=== PATIENT | female | born 1935 | race Caucasian/White ===

== ENCOUNTER → 2017-12-01 07:18 | Outpatient (CLI) | payer MEDICARE, BC, SELFPAY ==
[2017-12-01 07:55] LABS: BUN 18 mg/dL (7-18); BUN/Creat Ratio 13.1 RATIO (10-20); Calcium,Total 9.3 mg/dL (8.5-10.1); Chloride 101 mmol/L (98-107); Creatinine, Serum 1.37 mg/dL (0.55-1.02); EST Glomerular Filtration Rate 39 mL/min (>60); Est Glom Filt Rate - Afr Amer 48 mL/min (>60); Glucose 92 mg/dL (74-106); Phosphorus 3.9 mg/dL (2.5-4.9); Sodium Level 138 mmol/L (136-145)
== END ==
PROVIDERS: Family Provider Family Medicine; PCP Family Medicine; Visit Provider Internal Medicine Nephrology
DX: N18.3 Chronic kidney disease, stage 3 (moderate) (principal)
CPT/HCPCS: 36415; 80069

== ENCOUNTER → 2018-05-05 07:51 | Outpatient (CLI) | payer MEDICARE, BC, SELFPAY ==
[2018-05-05 08:58] LABS: Albumin, Serum 3.8 g/dL (3.2-5.0); BUN 22 mg/dL (7-18); BUN/Creat Ratio 15.7 RATIO (10-20); Calcium,Total 9.5 mg/dL (8.5-10.1); Chloride 100 mmol/L (98-107); EST Glomerular Filtration Rate 38 mL/min (>60); Est Glom Filt Rate - Afr Amer 46 mL/min (>60); Glucose 90 mg/dL (74-106); Phosphorus 4.2 mg/dL (2.5-4.9); Potassium 4.4 mmol/L (3.5-5.1); Sodium Level 136 mmol/L (136-145)
[2018-05-05 09:32] LABS: Protein, Urine (Random) < 6.0 mg/dL (<11.9)
[2018-05-07 11:22] LABS: ANTINUCLEAR ANTIBODIES DIRECT Positive (Negative); Anti-dsDNA Ab 10 IU/mL (0-9)
== END ==
PROVIDERS: Family Provider Family Medicine; PCP Family Medicine; Visit Provider Internal Medicine Nephrology
DX: N18.3 Chronic kidney disease, stage 3 (moderate) (principal); R76.8 Other specified abnormal immunological findings in serum
CPT/HCPCS: 36415; 80069; 82570; 84156; 86038; 86225

== ENCOUNTER → 2018-11-03 07:46 | Outpatient (CLI) | payer MEDICARE, BC, SELFPAY ==
[2018-11-03 09:07] LABS: Albumin, Serum 3.7 g/dL (3.2-5.0); BUN 21 mg/dL (7-18); BUN/Creat Ratio 18.3 RATIO (10-20); Chloride 106 mmol/L (98-107); Creatinine, Serum 1.15 mg/dL (0.55-1.02); EST Glomerular Filtration Rate 48 mL/min (>60); Est Glom Filt Rate - Afr Amer 58 mL/min (>60); Glucose 86 mg/dL (74-106); Phosphorus 3.3 mg/dL (2.5-4.9); Potassium 4.3 mmol/L (3.5-5.1); Sodium Level 139 mmol/L (136-145); Uric Acid 6.1 mg/dL (2.6-6.0)
== END ==
PROVIDERS: Family Provider Family Medicine; PCP Family Medicine; Referring Provider Internal Medicine Nephrology; Visit Provider Internal Medicine Nephrology
DX: N18.3 Chronic kidney disease, stage 3 (moderate) (principal)
CPT/HCPCS: 36415; 80069; 84550

== ENCOUNTER → 2019-06-27 12:45 | Outpatient (CLI) | payer MEDICARE, BC, SELFPAY ==
[2018-11-08 13:34] VITALS: BMI 21.7
== END ==
PROVIDERS: Family Provider Family Medicine; PCP Family Medicine; Referring Provider Family Medicine; Visit Provider Family Medicine
DX: R07.9 Chest pain, unspecified (principal)
CPT/HCPCS: 85379

== ENCOUNTER 2019-06-27 14:23 | Emergency (ER) | payer MEDICARE, BC, SELFPAY ==
[2018-11-08 13:34] VITALS: BMI 21.7
[2019-06-27 14:25] VITALS: BP 197/87; PULSE 90; RESP 19; TEMP 36.6; O2SAT 99; BMI 21.3
--- NOTE | 2019-06-27 14:28 | EKG12_ITS ---
Test Reason : CP Blood Pressure : / mmHG Vent. Rate : 084 BPM Atrial Rate : 084 BPM P-R Int : 136 ms QRS Dur : 082 ms QT Int : 386 ms P-R-T Axes : 073 042 064 degrees QTc Int : 456 ms Normal sinus rhythm Normal ECG Confirmed by TYRELL VASUQEZ, ALINA ([id number]), movie editor AILYN PRIETO ([id number]) on 06/29/2019 11:05:25 AM Referred By: LIZZETTE Confirmed By:ALINA SANTILLAN MD
[2019-06-27 14:54] LABS: Absolute Lymphocyte Count 0.97 X10^3/uL (0.83-4.51); Absolute Neutrophil Count 3.4 X10^3/uL (2.0-7.7); Basophil# 0.06 X10^3/uL; Basophil% 1.2 % (0-1); Eosinophil# 0.16 X10^3/uL; Eosinophils% 3.2 % (0-5); Hematocrit 41.4 % (37-47); Hemoglobin 13.8 g/dL (12.0-15.0); Lymphocyte # 0.97 X10^3/ul (4.0); Lymphocyte % 19.6 % (19-41); Mean Corp Hgb Conc 33.3 g/dL (32-36); Mean Corpuscular Hgb 30.6 pg (27.0-32.0); Mean Corpuscular Volume 91.8 fL (81-99); Mean Platelet Vol. 9.4 fl (6.2-12.0); Monocyte% 8.1 % (0-10); NRBC Flagged by Analyzer 0 % (0-5); Neutrophil # 3.35 X10^3/uL (2.7-7.7); Neutrophil % 67.5 % (47-70); Platelet Count 202 K/mm3 (150-450); RBC Distribution Width CV 11.5 % (11.6-14.6); RBC Distribution Width SD 39.2 fl (35.1-43.9); Red Blood Count 4.51 M/mm3 (4.2-5.4)
[2019-06-27 15:15] LABS: ALB/GLOB Ratio 1.1 RATIO (0.9-2.4); AST(SGOT) 11 U/L (15-37); Alanine Aminotransfer ALT/SGPT 18 U/L (13-56); Albumin, Serum 3.9 g/dL (3.2-5.0); Alkaline Phosphatase 67 U/L (45-117); Anion Gap 6 (5-15); BUN 19 mg/dL (7-18); BUN/Creat Ratio 14.3 RATIO (10-20); Calcium,Total 9.4 mg/dL (8.5-10.1); Chloride 105 mmol/L (98-107); Creatinine, Serum 1.33 mg/dL (0.55-1.02); EST Glomerular Filtration Rate 41 mL/min (>60); Est Glom Filt Rate - Afr Amer 49 mL/min (>60); Estimated Creatinine Clearance 25.79 ml/min; Globulin 3.4 g/dL (2.2-4.2); Glucose 112 mg/dL (74-106); Potassium 3.7 mmol/L (3.5-5.1); Protein, Total 7.3 g/dL (6.4-8.2); Sodium Level 137 mmol/L (136-145)
[2019-06-27 15:18] LABS: D-Dimer Quantitative (DVT/PE) 0.91 FEU/ug/m (0.27-0.49)
--- NOTE | 2019-06-27 15:20 | CT_ITS ---
STUDY: CTA CHEST REASON FOR EXAM: Female, 84 years old. Palpitations. Elevated d-dimer. RADIATION DOSAGE (If Supplied By Facility): CTDIvol = ( 3.87 ) mGy, DLP = ( 160.44 ) mGycm TECHNIQUE: The examination was performed with the intravenous administration of IV 75mL [id number]-300 75. Post-processing of the angiographic images was performed, with multiplanar reformation and 3D reconstruction. Individualized dose optimization techniques were used for this CT. COMPARISON: None. FINDINGS: Small benign-appearing bilateral axillary lymph nodes. Inhomogeneous appearance of the right and left lobe of the thyroid gland with decreased attenuation suggestive of a border is changed. Normal enhancement of the main pulmonary artery and right and left pulmonary arteries. Normal enhancement of the bilateral peripheral pulmonary arteries. There is no demonstrated pulmonary embolism. There is atherosclerotic calcification of the aortic arch with tortuosity. There is no demonstrated aortic dissection. Normal heart and pericardium. Normal mediastinum. Normal hilar regions. Normal visualized trachea and bronchi. The lungs are hyper expanded, with flattening of the hemidiaphragms. There is a 5.1 mm noncalcified nodule in the lateral peripheral aspect of the left upper lobe as seen on axial image #204. Normal pleura. Normal chest wall structures. There are degenerative changes of thoracic spine. Small hiatal hernia. CT/CTA Chest W/WO Contrast IMPRESSION: Hyperinflation. No evidence of pulmonary embolism. 5 mm pleural-based nodule in the left upper lobe. Electronically Signed: Francis Mike, at 15:56 EST , Service support ,
--- NOTE | 2019-06-27 15:22 | ED.VIS.GEN ---
History of Present Illness Chief Complaint: Palpitations Informant: Patient Onset: Days Timing: Intermittent Current Severity: Mild Maximum Severity: Mild Narrative: Patient presents from PCPs office with intermittent palpitations for the past couple of days. She states she will intermittently feel like her heart is fluttering. She denies chest pain or shortness of breath. She does not feel lightheaded or dizzy. She does not feel as if she is going to pass out. Blood work was sent from her primary care office and d-dimer was elevated so she was sent to the emergency room. Past Medical History - Allergies and Home Meds Allergies/Adverse Reactions: Allergies NSAIDS (Non-Steroidal Anti-Inflamma Allergy (Mild, Verified 11/08/18 13:36) Other Primary Care Physician: Anival Gamino MD [Primary Care Provider] - Prior records reviewed: Yes Past Medical History: - Smoking Status: Never smoker Review of Systems General: Denies: Chills, Fever Eyes: Denies: Visual changes - bilaterally Cardiovascular: Reports: Palpitations. Denies: Chest pain, Heart racing Respiratory: Denies: Dyspnea, Cough, Sputum Gastrointestinal: Denies: Abdominal pain, Nausea, Vomiting, Diarrhea Musculoskeletal: Denies: Neck pain, Back pain, Swelling, Extremity Pain Skin: Denies: Rash Neurological: Denies: Headache, Weakness, Parasthesia Hematologic: Denies: Easy bruising Allergy: Denies: Uticaria Physical Exam Vital Signs/Narrative: Vital Signs Temp Pulse Resp BP Pulse Ox 06/27/19 14:25 98 F 90 19 H 197/87 H 99 Inital Vital Signs reviewed: Yes General: Well nourished, Well developed Head: Normocephalic ENT: Moist mucous membranes Neck: Supple Cardiovascular: Regular rate, Regular rhythm Respiratory: No distress, CTA bilaterally Abdomen: Soft, Nontender Extremities: Nontender, No edema Skin: Normal color Neurological: Alert, Oriented x3, Normal Strength, Normal Sensation Psychological: Normal affect Diagnostic/Tx/Re-eval Impressions Chest CTA 06/27/19 15:20 IMPRESSION: Hyperinflation. No evidence of pulmonary embolism. 5 mm pleural-based nodule in the left upper lobe. Electronically Signed: Francis Mike, at 15:56 EST , Service support , 06/27/19 15:20 CTA Chest W/WO Contrast [CT] Stat Laboratory Results 06/27/19 06/27/19 06/27/19 14:45 14:45 14:45 WBC 5.0 RBC 4.51 Hgb 13.8 Hct 41.4 MCV 91.8 MCH 30.6 MCHC 33.3 RDW Std Deviation 39.2 RDW Coeff of Fatimah 11.5 L Plt Count 202 MPV 9.4 Immature Gran % (Auto) 0.400 Neut % (Auto) 67.5 Lymph % (Auto) 19.6 [place] % (Auto) 8.1 Eos % (Auto) 3.2 Baso % (Auto) 1.2 H Absolute Neuts (auto) 3.4 Absolute Lymphs (auto) 0.97 Nucleated RBC % 0 D-Dimer Quant (PE/DVT) 0.91 H* Sodium 137 Potassium 3.7 Chloride 105 Carbon Dioxide 26.0 Anion Gap 6 BUN 19 H Creatinine 1.33 H Estim Creat Clear Calc 25.79 Est GFR (MDRD) Af Amer 49 L Est GFR (MDRD) Non-Af 41 L BUN/Creatinine Ratio 14.3 Glucose 112 H Calcium 9.4 Total Bilirubin 0.20 AST 11 L ALT 18 Alkaline Phosphatase 67 Troponin I < 0.015 Total Protein 7.3 Albumin 3.9 Globulin 3.4 Albumin/Globulin Ratio 1.1 - EKG Initial EKG Interpretation: Sinus Rhythm - Sinus at 84 with no acute ischemia. - Medical Decision Making Labs were reviewed with the patient. CTA of the chest here is unremarkable. She did mention that Dr. Gamino had talked about looking a quality assurance monitor body up to her for home. I spoke with him and they are arranging that through [facility]. They should be calling her tomorrow with those instructions. I did add TSH on to the patient's labs. This is not yet resulted but patient will not be held here awaiting those results. I will check this and call her if it is abnormal. ED Disposition - Plan for ED Patient: Disposition: Home or Assisted Living Diagnosis: Palpitations Instructions: Palpitations Referrals: Anival Gamino MD [Primary Care Provider] - As soon as possible
[2019-06-27] MEDS: 0.9% Normal Saline 1,000 ML 150 ML IV (16:05)
[2019-06-27 16:34] LABS: Thyroid Stim Hormone (TSH) 2.37 uIU/mL (0.358-3.74)
[2019-06-27 16:35] VITALS: BP 157/61; PULSE 72; RESP 12; O2SAT 99
== END 2019-06-27 16:42 | disposition home or self-care (01) ==
PROVIDERS: Emergency Provider Emergency Medicine; Family Provider Family Medicine; PCP Family Medicine
DX: R00.2 Palpitations (principal); R79.89 Other specified abnormal findings of blood chemistry; R91.1 Solitary pulmonary nodule
CPT/HCPCS: 71275; 80053; 84443; 84484; 85025; 85379; 93005; 96360; 99283; J7030; Q9967; A4216

== ENCOUNTER → 2019-07-01 10:28 | Outpatient (CLI) | payer MEDICARE, BC, SELFPAY ==
[2019-06-27 14:25] VITALS: BMI 21.3
== END ==
PROVIDERS: Family Provider Family Medicine; PCP Family Medicine; Referring Provider Family Medicine; Visit Provider Family Medicine
DX: R00.2 Palpitations (principal)
CPT/HCPCS: 93225; 93226

== ENCOUNTER → 2019-08-30 08:24 | Outpatient (CLI) | payer MEDICARE, BC, SELFPAY ==
--- NOTE | 2019-08-30 08:29 | CT_ITS ---
STUDY: CT MAXILLOFACIAL SINUSES REASON FOR EXAM: Female, 84 years old. Facial pain left side greater than right, multiple antibiotics. Prior nasal surgery, right parotidectomy, hypertension. [employer] navigation protocol. RADIATION DOSAGE (If Supplied By Facility): CTDIvol = ( 33.06 ) mGy, DLP = ( 763.60 ) mGycm TECHNIQUE: The patient was scanned in a multi detector CT scanner. High resolution axial imaging was performed without the administration of intravenous contrast material. Sagittal and coronal images were reconstructed. Individualized dose optimization techniques were used for this CT. COMPARISON: None. FINDINGS: FRONTAL SINUSES: Normal aeration, without mucosal inflammatory disease. ETHMOIDAL SINUSES: Normal aeration, without mucosal inflammatory disease. MAXILLARY SINUSES: Normal aeration, without mucosal inflammatory disease. SPHENOIDAL SINUSES: Normal aeration, without mucosal inflammatory disease. There is patency of the bilateral maxillary infundibuli with normal uncinate processes, ethmoid bullae, and hiatus semilunaris. Normal bilateral middle turbinates. Normal bilateral inferior turbinates. Normal midline nasal septum. There is patency of the bilateral nasal airways. The visualized osseous structures are normal. The visualized bilateral orbital contents are normal. CT/Sinus/Facial Bone IMPRESSION: Normal CT examination of the maxillofacial sinuses. Electronically Signed: Francis Mike, at 9:31 EST , Service support ,
== END ==
PROVIDERS: Family Provider Family Medicine; PCP Family Medicine; Referring Provider Otolaryngology; Visit Provider Otolaryngology
DX: R51 Headache (principal)
CPT/HCPCS: 70486

== ENCOUNTER → 2019-09-07 08:47 | Outpatient (CLI) | payer MEDICARE, BC, SELFPAY ==
[2019-09-07 09:43] LABS: Protein:Creat Ratio 150 mg/g CRE (0-200)
[2019-09-07 10:02] LABS: Albumin, Serum 3.8 g/dL (3.2-5.0); BUN 16 mg/dL (7-18); BUN/Creat Ratio 11.8 RATIO (10-20); Calcium,Total 9.5 mg/dL (8.5-10.1); Chloride 108 mmol/L (98-107); Creatinine, Serum 1.36 mg/dL (0.55-1.02); EST Glomerular Filtration Rate 40 mL/min (>60); Est Glom Filt Rate - Afr Amer 48 mL/min (>60); Glucose 136 mg/dL (74-106); Phosphorus 2.9 mg/dL (2.5-4.9); Potassium 3.7 mmol/L (3.5-5.1); Sodium Level 140 mmol/L (136-145)
== END ==
PROVIDERS: Family Provider Family Medicine; PCP Family Medicine; Referring Provider Internal Medicine Nephrology; Visit Provider Internal Medicine Nephrology
DX: N18.3 Chronic kidney disease, stage 3 (moderate) (principal); R76.8 Other specified abnormal immunological findings in serum
CPT/HCPCS: 36415; 80069; 82570; 84156; 86038; 86225

== ENCOUNTER → 2020-03-27 09:59 | Outpatient (CLI) | payer MEDICARE, BC, SELFPAY ==
[2020-03-27 10:59] LABS: Hematocrit 45.1 % (37-47); Hemoglobin 14.5 g/dL (12.0-15.0); Mean Corp Hgb Conc 32.2 g/dL (32-36); Mean Corpuscular Hgb 30.6 pg (27.0-32.0); Mean Corpuscular Volume 95.1 fL (81-99); Mean Platelet Vol. 10.3 fl (6.2-12.0); Platelet Count 192 K/mm3 (150-450); RBC Distribution Width SD 41.7 fl (35.1-43.9); Red Blood Count 4.74 M/mm3 (4.2-5.4); White Blood Count 6.1 K/mm3 (4.4-11.0)
[2020-03-27 11:06] LABS: Protein, Urine (Random) 9.1 mg/dL (<11.9); Protein:Creat Ratio 130 mg/g CRE (0-200)
[2020-03-27 11:17] LABS: Albumin, Serum 3.9 g/dL (3.2-5.0); BUN 16 mg/dL (7-18); BUN/Creat Ratio 12.4 RATIO (10-20); Calcium,Total 9.2 mg/dL (8.5-10.1); Chloride 103 mmol/L (98-107); Creatinine, Serum 1.29 mg/dL (0.55-1.02); EST Glomerular Filtration Rate 42 mL/min (>60); Est Glom Filt Rate - Afr Amer 51 mL/min (>60); Glucose 120 mg/dL (74-106); Phosphorus 2.8 mg/dL (2.5-4.9); Sodium Level 136 mmol/L (136-145)
== END ==
PROVIDERS: PCP Family Medicine; Referring Provider Internal Medicine Nephrology; Visit Provider Internal Medicine Nephrology
DX: N18.3 Chronic kidney disease, stage 3 (moderate) (principal); R76.8 Other specified abnormal immunological findings in serum
CPT/HCPCS: 36415; 80069; 82570; 84156; 85027

== ENCOUNTER → 2020-12-05 12:15 | Outpatient (CLI) | payer MEDICARE, BC, SELFPAY ==
[2020-12-05 13:43] LABS: Protein, Urine (Random) < 6.0 mg/dL (<11.9)
[2020-12-05 13:50] LABS: Albumin, Serum 3.8 g/dL (3.2-5.0); BUN 19 mg/dL (7-18); BUN/Creat Ratio 16.2 RATIO (10-20); Calcium,Total 9.4 mg/dL (8.5-10.1); Chloride 107 mmol/L (98-107); Creatinine, Serum 1.17 mg/dL (0.55-1.02); EST Glomerular Filtration Rate 47 mL/min (>60); Est Glom Filt Rate - Afr Amer 57 mL/min (>60); Glucose 84 mg/dL (74-106); Phosphorus 3.3 mg/dL (2.5-4.9); Potassium 3.9 mmol/L (3.5-5.1); Sodium Level 138 mmol/L (136-145)
[2020-12-05 14:14] LABS: PTHIN 64.5 pg/mL (18.4-80.1)
== END ==
PROVIDERS: PCP Family Medicine; Referring Provider Internal Medicine Nephrology; Visit Provider Internal Medicine Nephrology
DX: N18.30 Chronic kidney disease, stage 3 unspecified (principal)
CPT/HCPCS: 36415; 80069; 82570; 83970; 84156

== ENCOUNTER 2021-01-27 01:22 | Emergency (ER) | payer MEDICARE, BC, SELFPAY ==
[2021-01-27 01:22] VITALS: BP 196/91; PULSE 88; RESP 16; TEMP 36.6; O2SAT 97; BMI 20.4
[2021-01-27 01:24] VITALS: BP 196/91; PULSE 88; RESP 16; TEMP 36.6; O2SAT 97
--- NOTE | 2021-01-27 01:31 | EDS_ITS ---
HPI History of Present Illness Chief Complaint: Complaint Informant: patient Onset/Context/Timing Onset: Today Context: Sudden Onset Timing: Continuous Quality: Burning, discomfort Location: Suprapubic Worsened by: Urination Relieved by: Nothing Narrative Narrative: Patient presents with possible urinary tract infection that began tonight. Patient states she has been having some burning with urination. Patient admits to some suprapubic discomfort. Patient states this only began a few hours ago. Patient denies any fevers or chills. Patient denies any nausea or vomiting. Patient denies any hematuria. Patient denies any back pain. [facility] Medical History GERD (gastroesophageal reflux disease) Hypertension Home Medications aspirin 81 mg chewable tablet 81 mg PO DAILY 11/08/18 [History Last Taken Unknown] calcium citrate 200 mg (950 mg) tablet 200 mg PO DAILY tab 11/08/18 [History Last Taken Unknown] dextran 70-hypromellose 0.1 %-0.3 % eye drops drp OPHTHALMIC ml 11/08/18 [History Last Taken Unknown] levothyroxine 50 mcg tablet 50 mcg PO DAILY 11/08/18 [History Last Taken Unknown] metronidazole 250 mg tablet 250 mg PO TID 11/08/18 [History Last Taken Unknown] omeprazole 20 mg capsule,delayed release 20 mg PO DAILY 11/08/18 [History Last Taken Unknown] ospemifene 60 mg tablet 60 mg PO DAILY #30 tab 11/08/18 [Rx Last Taken Unknown] ropinirole 0.25 mg tablet 0.25 mg PO QHS 11/08/18 [History Last Taken Unknown] simvastatin 40 mg tablet 40 mg PO QHS 11/08/18 [History Last Taken Unknown] cephalexin 500 mg PO Q6 #12 capsule 01/27/21 [Rx Last Taken Unknown] losartan 50 mg PO DAILY 01/27/21 [History Last Taken Unknown] Allergy/AdvReac Type Severity Reaction Status Date / Time NSAIDS (Non-Steroidal Allergy Mild Other Verified 11/08/18 13:36 Anti-Inflamma Sulfa (Sulfonamide Allergy Rash Verified 01/27/21 01:25 Antibiotics) Surgical History S/P DHIRAJ (total abdominal hysterectomy) Social History Smoking Status: Never smoker alcohol intake: never substance use type: does not use caffeine: Yes what type of physical activity do you participate in: walking seatbelt use: always do you feel safe at home: Yes additional social history: [employer]- Retired ROS ROS ED Constitutional Constitutional ED: Denies chills or fever(s) Eyes Eyes: Denies blurry vision or change in vision ENT ENT ED: Denies rhinorrhea or sore throat Cardiovascular Cardiovascular: Denies chest pain or palpitations Respiratory/Chest Respiratory/Chest: Denies cough or dyspnea Gastrointestinal Gastrointestinal: Denies nausea or vomiting Genitourinary Genitourinary ED: Reports dysuria; Denies hematuria Musculoskeletal Musculoskeletal: Denies back pain or neck pain Integumentary Denies abscess or rash Neurologic Neurologic: Denies headache(s) or weakness Allergic/Immunologic Allergic/Immunologic ED: Denies mouth swelling or urticaria EXAM Physical Exam Const Vital Signs: 01/27/21 01:22 01/27/21 01:24 Temperature 97.8 F 97.8 F Temperature Source Temporal Temporal Pulse Rate 88 88 Respiratory Rate 16 16 Blood Pressure 196/91 H 196/91 H Blood Pressure Mean 126 126 Pulse Ox 97 97 Oxygen Delivery Method Room Air Room Air Positive well nourished and well developed General Appearance ED: well developed HEENT Reports moist mucous membranes Neck supple and no JVD Resp normal respiratory effort and clear to auscultation bilaterally Cardio regular rate and regular rhythm GI normal to inspection, nondistended, normoactive bowel sounds and non-distended Palpation: soft and tender suprapubic; Negative for guarding or rebound tenderness present Neuro oriented x3, CN's II-XII intact bilaterally and no sensory deficits noted Sensorium / Orientation: alert Motor Exam: strength 5/5 throughout Psych mental status grossly normal MDM MDM MDM Narrative Medical decision making narrative: Urinalysis shows leukocyte esterase of 500 with 10-25 red blood cells and 25-50 white blood cells. There is 1+ bacteria. Urine culture was ordered. Patient was given her first dose of Keflex here. Patient was given a prescription for Keflex. Patient was instructed to drink plenty of fluids. Patient was instructed to follow-up with her primary care physician in 5 to 7 days for further evaluation. Patient understood and was agreeable with the plan. All questions were answered. Lab Data Attestation: I reviewed the patient's lab results. Labs: Laboratory Results - last 24 hr 01/27/21 01:35 Urine Color Red Urine Clarity Sl. Cloudy Urine pH 6.5 Ur Specific [place] 1.010 Urine Protein 100 H Urine Glucose (UA) Normal Urine Ketones Negative Urine Occult Blood 250 H Urine Nitrite Negative Urine Bilirubin Negative Urine Urobilinogen Normal Ur Leukocyte Esterase 500 H Urine RBC 10-25 SEEN Urine WBC 25-50 SEEN Ur Squamous Epith Cells 0 SEEN Urine Bacteria 1+ Urine Mucus 0 SEEN Discharge Plan Triage Chief Complaint: Complaint ED Provider: Shaka Zurita Dx/Rx/DC Orders Clinical Impression: Urinary tract infection Instructions: ED Bladder Infection, Female (Adult) Prescriptions: New cephalexin [cephalexin] 500 MG capsule 500 mg PO Q6 Qty: 12 RF: 0 No Action ropinirole 0.25 mg tablet 0.25 mg PO QHS RF: 0 calcium citrate [Calcitrate] 200 mg (950 mg) tablet 200 mg PO DAILY RF: 0 metronidazole [Flagyl] 250 mg tablet 250 mg PO TID RF: 0 levothyroxine 50 mcg tablet 50 mcg PO DAILY RF: 0 simvastatin 40 mg tablet 40 mg PO QHS RF: 0 omeprazole 20 mg capsule,delayed release(DR/EC) 20 mg PO DAILY RF: 0 aspirin 81 mg tablet,chewable 81 mg PO DAILY RF: 0 GenTeal Tears Mild 0.1-0.3 % drops OPHTHALMIC RF: 0 [place] 60 mg tablet 60 mg PO DAILY Qty: 30 RF: 12 losartan 50 mg tablet 50 mg PO DAILY RF: 0 Primary Care Provider: Anival Gamino Referrals: Anival Gamino MD [Primary Care Provider] - 3-5 Days Disposition Disposition: Home, self care
[2021-01-27 01:40] LABS: Mucous, Urine 0 SEEN /hpf (<or=2+); Squamous Epithelial Cells - UA 0 SEEN /hpf (5-10)
[2021-01-27 01:42] LABS: Color, Urine Red (Yellow); Glucose, Dipstick Normal (Normal); Ketone-Dipstick Negative (Negative); Leukocyte Esterase-Dipstick 500 /ul (Negative); Nitrite-Dipstick Negative (Negative); Occult Blood-Urine 250 /ul (Negative); Protein-Dipstick 100 mg/dl (Negative); Urine Bilirubin Dipstick Negative (Negative); Urine Clarity Sl. Cloudy (Clear); Urine Urobilinogen Normal (Normal); Urine pH 6.5 (5.0 - 8.0)
[2021-01-27 01:51] LABS: Bacteria 1+ /hpf (None Seen); Red Blood Cells-Urine 10-25 SEEN /hpf (0-5); White Blood Cells 25-50 SEEN /hpf (0-5)
[2021-01-27] MEDS: Cephalexin 500 MG Capsule PO (01:58)
[2021-01-27 02:02] VITALS: BP 170/64; PULSE 74; RESP 14; O2SAT 99
== END 2021-01-27 02:02 | disposition home or self-care (01) ==
PROVIDERS: Emergency Provider Emergency Medicine; PCP Family Medicine
DX: N39.0 Urinary tract infection, site not specified (principal); I10 Essential (primary) hypertension; K21.9 Gastro-esophageal reflux disease without esophagitis; Z79.82 Long term (current) use of aspirin; Z79.899 Other long term (current) drug therapy
CPT/HCPCS: 81001; 99283

== ENCOUNTER → 2021-08-14 09:59 | Outpatient (CLI) | payer MEDICARE, BC, SELFPAY ==
[2021-08-14 10:54] LABS: Hemoglobin 13.6 g/dL (12.0-15.0); Mean Corpuscular Hgb 31.1 pg (27.0-32.0); Mean Corpuscular Volume 91.3 fL (81-99); Mean Platelet Vol. 9.7 fl (6.2-12.0); Platelet Count 167 K/mm3 (150-450); RBC Distribution Width CV 11.9 % (11.6-14.6); Red Blood Count 4.38 M/mm3 (4.2-5.4); White Blood Count 6.2 K/mm3 (4.4-11.0)
[2021-08-14 11:26] LABS: Albumin, Serum 3.7 g/dL (3.2-5.0); BUN 21 mg/dL (7-18); BUN/Creat Ratio 18.4 RATIO (10-20); Calcium,Total 9.4 mg/dL (8.5-10.1); Chloride 101 mmol/L (98-107); Creatinine, Serum 1.14 mg/dL (0.55-1.02); EST Glomerular Filtration Rate 48 mL/min (>60); Est Glom Filt Rate - Afr Amer 58 mL/min (>60); Glucose 135 mg/dL (74-106); Phosphorus 2.8 mg/dL (2.5-4.9); Potassium 3.9 mmol/L (3.5-5.1); Sodium Level 135 mmol/L (136-145)
== END ==
PROVIDERS: PCP Family Medicine; Referring Provider Internal Medicine Nephrology; Visit Provider Internal Medicine Nephrology
DX: N18.32 Chronic kidney disease, stage 3b (principal)
CPT/HCPCS: 36415; 80069; 85027

== ENCOUNTER → 2021-12-20 | Outpatient (CLI) | payer MEDICARE, BC, SELFPAY ==
--- NOTE | 2021-12-20 06:36 | MRI_ITS ---
STUDY: MRI RIGHT FOREFOOT WITHOUT CONTRAST REASON FOR EXAM: Female, 86 years old. INTERMETATARSAL NEUROMA RIGHT FOREFOOT, CAPSULITIS Other, PAIN ACROSS DISTAL METATARSALS PLANTAR SURFACE X OVER A YEAR. NO PREVIOUS IMAGES. TECHNIQUE: Standardized fat and water weighted pulse sequences were obtained in all 3 orthogonal planes. COMPARISON: None. FINDINGS: There is degenerative mild arthrosis of the metatarsophalangeal joint of the hallux. Normal tibial and fibular sesamoids, with normal sesamoids-first metatarsal articulations. Normal interphalangeal joint of the hallux. Normal proximal and distal phalanges of the great toe. Normal medial and lateral heads of the flexor hallucis brevis tendons. Normal flexor and extensor hallucis longus tendons. Normal second through fifth metatarsophalangeal (MTP) joints. Normal interphalangeal joints of the second through fifth toes. Normal proximal, middle and distal phalanges of the second through fifth toes. 3 mm intermediate signal rounded interdigital neuroma/enlargement of the interdigital nerve is seen on image 18/36 series 3 between the heads of the fourth and fifth metatarsal bones. Normal first through third intermetatarsal spaces. Normal flexor and extensor tendons of the second through fifth toes. Normal visualized metatarsi. Normal intrinsic muscles of the forefoot. There is no demonstrated soft tissue abnormality. No marrow edema or occult fracture is seen. No visualized plantar fibroma. MRI/Lower Ext/No Jt/w/o IMPRESSION: * 3 mm intermediate signal rounded interdigital neuroma/enlargement of the interdigital nerve is seen on image 18/36 series 3 between the heads of the fourth and fifth metatarsal bones. Electronically Signed: Kris Flynn MD at 12:24 EDT Reading Location ID and State: [address] [place] [address] , Service support ,
== END | disposition home or self-care (01) ==
LOC: MRI 06:28
PROVIDERS: PCP Family Medicine; Referring Provider Podiatrist; Visit Provider Podiatrist
DX: M77.51 Other enthesopathy of right foot and ankle (principal)
CPT/HCPCS: 73718

== ENCOUNTER → 2022-04-02 | Outpatient (CLI) | payer MEDICARE, BC, SELFPAY ==
[2022-04-02 12:32] LABS: Hematocrit 41.4 % (37-47); Hemoglobin 13.1 g/dL (12.0-15.0); Mean Corp Hgb Conc 31.6 g/dL (32-36); Mean Corpuscular Volume 97.9 fL (81-99); Mean Platelet Vol. 9.9 fl (6.2-12.0); Platelet Count 185 K/mm3 (150-450); RBC Distribution Width CV 12.7 % (11.6-14.6); RBC Distribution Width SD 45.6 fl (35.1-43.9); Red Blood Count 4.23 M/mm3 (4.2-5.4); White Blood Count 4.4 K/mm3 (4.4-11.0)
[2022-04-02 12:55] LABS: Albumin, Serum 3.8 g/dL (3.2-5.0); BUN 16 mg/dL (7-18); BUN/Creat Ratio 16.5 RATIO (10-20); Calcium,Total 9.4 mg/dL (8.5-10.1); Chloride 103 mmol/L (98-107); Creatinine, Serum 0.97 mg/dL (0.55-1.02); EST Glomerular Filtration Rate 58 mL/min (>60); Est Glom Filt Rate - Afr Amer 70 mL/min (>60); Glucose 110 mg/dL (74-106); Phosphorus 3.1 mg/dL (2.5-4.9); Potassium 4.2 mmol/L (3.5-5.1); Sodium Level 137 mmol/L (136-145)
[2022-04-02 12:56] LABS: PTHIN 45.7 pg/mL (18.4-80.1)
== END | disposition home or self-care (01) ==
LOC: LAB 11:17
PROVIDERS: PCP Family Medicine; Visit Provider Internal Medicine Nephrology
DX: N18.31 Chronic kidney disease, stage 3a (principal)
CPT/HCPCS: 36415; 80069; 83970; 85027

== ENCOUNTER → 2023-02-05 | Outpatient (CLI) | payer MEDICARE, BC, SELFPAY ==
[2023-02-05 10:15] LABS: Bacteria 0 SEEN /hpf (None Seen); Mucous, Urine 0 SEEN /hpf (<or=2+); Red Blood Cells-Urine 0 SEEN /hpf (0-5); Squamous Epithelial Cells - UA 0 SEEN /hpf (5-10); White Blood Cells 0 SEEN /hpf (0-5)
[2023-02-05 11:03] LABS: Color, Urine Yellow (Yellow); Glucose, Dipstick Normal (Normal); Ketone-Dipstick Negative (Negative); Leukocyte Esterase-Dipstick Negative /ul (Negative); Nitrite-Dipstick Negative (Negative); Occult Blood-Urine 25 /ul (Negative); Protein-Dipstick Negative (Negative); Urine Bilirubin Dipstick Negative (Negative); Urine Clarity Clear (Clear); Urine Urobilinogen Normal (Normal); Urine pH 6.5 (5.0 - 8.0)
[2023-02-05 12:04] LABS: Protein, Urine (Random) < 6.0 mg/dL (<11.9)
[2023-02-05 12:08] LABS: Albumin, Serum 3.4 g/dL (3.2-5.0); BUN 21 mg/dL (7-18); BUN/Creat Ratio 19.1 RATIO (10-20); Calcium,Total 9.2 mg/dL (8.5-10.1); Chloride 104 mmol/L (98-107); EST Glomerular Filtration Rate 50 mL/min (>60); Est Glom Filt Rate - Afr Amer 61 mL/min (>60); Glucose 174 mg/dL (74-106); Phosphorus 3.6 mg/dL (2.5-4.9); Potassium 3.7 mmol/L (3.5-5.1); Sodium Level 136 mmol/L (136-145)
== END | disposition home or self-care (01) ==
LOC: LAB.FUTURE 10:08
PROVIDERS: PCP Family Medicine; Referring Provider Internal Medicine Nephrology; Visit Provider Internal Medicine Nephrology
DX: N18.31 Chronic kidney disease, stage 3a (principal)
CPT/HCPCS: 36415; 80069; 81001; 82570; 84156

== ENCOUNTER 2023-02-28 10:25 | Emergency (ER) | payer MEDICARE, BC, SELFPAY ==
[2023-02-28 10:27] VITALS: BP 198/71; PULSE 81; RESP 16; TEMP 36.4; O2SAT 100; BMI 18.4
--- NOTE | 2023-02-28 10:55 | CT_ITS ---
STUDY: CT ABDOMEN AND PELVIS WITH CONTRAST REASON FOR EXAM: Female, 87 years old. Left lower quadrant pain x3 weeks RADIATION DOSAGE (If Supplied By Facility): CTDIvol = ( 16.71 ) mGy, DLP = ( 321.77 ) mGycm TECHNIQUE: Transaxial images were obtained from the dome of the diaphragm to the symphysis pubis without oral contrast. IV 75mL [id number]-[id number] was administered. Sagittal and coronal images were reconstructed. Individualized dose optimization techniques were used for this CT. COMPARISON: None. FINDINGS: Lung bases show underlying emphysema without superimposed pulmonary process. The visualized portions of the heart are within normal limits. Normal liver. Normal gallbladder and extrahepatic biliary system. Normal spleen. Normal pancreas. Normal bilateral adrenal glands. No obstructive uropathy or suspicious solid renal lesion, there is a simple 1 cm right renal cyst and a nonobstructing right renal stone. Normal visualized stomach. Nondistended fluid-filled small bowel loops are noted consistent with ileus. This may be due to retained stool throughout the entirety of the colon. There are a few scattered colonic diverticula without CT evidence of acute diverticulitis. Appendix not visualized. Normal abdominal aorta. Normal inferior vena cava. Normal retroperitoneum. Normal urinary bladder. Normal abdominal wall. There are diffuse degenerative changes of the visualized lumbar spine, and pelvis. CT/Abdomen/Pelvis W IV Cont ONLY IMPRESSION: No suspicious solid organ abnormality, nonobstructing right nephrolithiasis, simple right renal cyst. No specific follow-up needed Small bowel ileus likely due to retained stool throughout the entirety of the colon No free intraperitoneal fluid, air, or suspicious adenopathy Diffuse atherosclerosis Electronically Signed: Edward Urias MD at 12:12 EDT ,
--- NOTE | 2023-02-28 10:56 | EDS_ITS ---
HPI HPI - GI History of Present Illness Chief Complaint: Abd Pain Informant: patient Narrative Narrative: Patient has been having abdominal pain in her left lower quadrant for the past 2 weeks or so, it is been waxing and waning, but this morning it is worse and more prominent, unlike it has been in the past week or 2. This is the first time she has been seen for it. She has never had this before. No known history of diverticulosis. Only prior abdominal surgery was appendectomy and total hysterectomy both of which were remote. No other associated symptoms with this including blood in her stool, melena, nausea, vomiting, fevers. No urinary symptoms. No pain in her back. [facility] Medical History Abnormal echocardiogram Actinic keratitis CKD (chronic kidney disease) stage 3, GFR 30-59 ml/min Dyspareunia due to medical condition in female Essential hypertension GERD (gastroesophageal reflux disease) Hiatal hernia Hypothyroidism Mixed hyperlipidemia Non-rheumatic mitral regurgitation Psoriasis Rosacea Seborrheic keratosis Urinary tract infection Home Medications aspirin 81 mg chewable tablet 81 mg PO DAILY 11/08/18 [History Last Taken Unknown] calcium citrate 200 mg (950 mg) tablet (Calcitrate) 200 mg PO DAILY 11/08/18 [History Last Taken Unknown] dextran 70-hypromellose 0.1 %-0.3 % eye drops (GenTeal Tears Mild) drp ophthalmic (eye) 11/08/18 [History Last Taken Unknown] omeprazole 20 mg capsule,delayed release 20 mg PO DAILY 11/08/18 [History Last Taken Unknown] simvastatin 40 mg tablet 40 mg PO QHS 11/08/18 [History Last Taken Unknown] losartan 50 mg tablet 50 mg PO DAILY 01/27/21 [History Last Taken Unknown] ipratropium bromide 21 mcg (0.03 %) nasal spray 2 spray intranasal BID 02/11/23 [History Last Taken Unknown] pregabalin 50 mg capsule 50 mg PO BID 02/11/23 [History Last Taken Unknown] ropinirole 0.5 mg tablet 0.5 mg PO TID 02/11/23 [History Last Taken Unknown] turmeric 400 mg capsule 400 mg PO DAILY 02/11/23 [History Last Taken Unknown] amoxicillin 500 mg capsule 2,000 mg PO ONCE PRN 02/23/23 [History Last Taken Unknown] levothyroxine 50 mcg tablet 50 mcg PO 6XW 02/23/23 [History Last Taken Unknown] polyethylene glycol 3350 17 gram/dose oral powder (Laxative PEG 3350) 17 g PO DAILY #119 grams 02/28/23 [Rx Last Taken Unknown] Allergy/AdvReac Type Severity Reaction Status Date / Time hypromellose Allergy Severe Rednesss, Verified 02/28/23 10:27 [From GenTeal (hypromellose)] watering, pain in eye NSAIDS (Non-Steroidal Allergy Mild Other Verified 02/28/23 10:27 Anti-Inflamma Sulfa (Sulfonamide Allergy Rash Verified 02/28/23 10:27 Antibiotics) fluticasone [From Flonase] AdvReac Unknown jittery Verified 02/28/23 10:27 salicylates AdvReac Unknown ringing in Verified 02/28/23 10:27 ears Family History Mother Myocardial infarction, Onset Age: 70 Surgical History History of appendectomy History of right knee joint replacement (~2021) S/P DHIRAJ (total abdominal hysterectomy) Social History Smoking Status: Never smoker alcohol intake: never substance use type: does not use caffeine: No what type of physical activity do you participate in: walking seatbelt use: always do you feel safe at home: Yes additional social history: Magdi- Retired ROS ROS ED Constitutional Constitutional ED: Denies chills or fever(s) Eyes Eyes: Denies change in vision or diplopia ENT ENT ED: Denies rhinorrhea or sore throat Cardiovascular Cardiovascular: Denies chest pain or palpitations Respiratory/Chest Respiratory/Chest: Denies cough or dyspnea Gastrointestinal Gastrointestinal: Reports abdominal pain; Denies diarrhea, nausea or vomiting Genitourinary Genitourinary ED: Denies dysuria or hematuria Musculoskeletal Musculoskeletal: Denies back pain or neck pain Integumentary Denies abscess or rash Neurologic Neurologic: Denies headache(s), paresthesias or weakness Psychiatric Psychiatric: Denies anxiety or suicidal thoughts EXAM Physical Exam Const Vital Signs: 02/28/23 10:27 Temperature 97.5 F L Temperature Source Temporal Pulse Rate 81 Respiratory Rate 16 Blood Pressure 198/71 H Blood Pressure Mean 113 Pulse Ox 100 Oxygen Delivery Method Room Air Positive well nourished and well developed General Appearance ED: well developed and NAD HEENT Reports moist mucous membranes normocephalic and atraumatic Eyes PERRL and EOMs intact bilaterally Neck full ROM and supple Resp normal respiratory effort and clear to auscultation bilaterally Cardio regular rate, regular rhythm and no murmurs GI non-distended GI Narrative: Left lower quadrant tenderness without guarding, rebound, or pulsatile mass. Normal on inspection no Rodriguez Hsieh or C[place]well signs. Auscultation: normoactive bowel sounds Palpation: soft Back/Spine no CVA tenderness General Back: other FROM Extremity normal to inspection General Extremety ED: Negative for edema, pulses abnormal or tenderness General Extremity: Negative for edema or pulses abnormal Neuro oriented x3, CN's II-XII intact bilaterally and no sensory deficits noted Sensorium / Orientation: awake and alert Motor Exam: strength 5/5 throughout Skin no rashes or lesions noted and no wounds MDM MDM MDM Narrative Medical decision making narrative: Diverticulitis in the differential diagnosis, also kidney stone, urinary issues, other intestinal issues such as bowel obstruction although less likely because she has had no nausea or vomiting. Obtain labs, urinalysis, these are all normal with a white blood count of 4.0. Obtained a CT with IV contrast, I reviewed the images and the results. I discussed all this with Dr. Ramirez. This is a fairly big was result, I agree that she appears to have a lot of stool in the bowel, I do not see any bowel distention. He looked at the images and agrees, this looks like fecalization of the small bowel and a predilection of large amount of stool in the colon, he does not see any reason for admission based on the appearance of the scan which I agree with as well. The patient looks well, she has a fairly benign abdomen, she is tender left lower quadrant, and I asked her more about her stool habits. She had a large bowel movement this morning that seemed normal to her, she does not feel like she has been constipated lately, having bowel movements has not increased or improved the pain. Certainly does not appear to have any signs of ischemic bowel and her pain is not severe at this time, and her labs are normal and I see no reason to admit her to the hospital for further testing right now. I do agree that the results of the CT do not exactly correlate with her symptoms. Dr. Ramirez is in agreement with my plan to basically put her on a colon cleansing regimen in the short-term, stool softener long-term, and close outpatient follow-up short-term. I am going to prescribe her MiraLAX as she has a right medication, I recommend doing 4 capfuls today and drinking plenty of water which she has been doing, and then 1 capful daily going forward, and reevaluating with her PCP. Of note, she does not have an ileus clinically, her bowel sounds are normal, and she does not have any distention of her abdomen. Furthermore, when patient reviews her calendar, she states she has been having this pain for 6 weeks. Lab Data Attestation: I reviewed the patient's lab results. Labs: Laboratory Results - last 24 hr 02/28/23 02/28/23 10:38 10:40 WBC 4.0 L RBC 4.53 Hgb 13.7 Hct 42.0 MCV 92.7 MCH 30.2 MCHC 32.6 RDW Std Deviation 41.0 RDW Coeff of Fatimah 11.9 Plt Count 156 MPV 10.1 Immature Gran % (Auto) 0.500 Neut % (Auto) 65.9 Lymph % (Auto) 18.8 L [place] % (Auto) 7.9 Eos % (Auto) 5.4 H Baso % (Auto) 1.5 H Absolute Neuts (auto) 2.7 Absolute Lymphs (auto) 0.76 L Nucleated RBC % 0 Sodium 133 L Potassium 3.7 Chloride 100 Carbon Dioxide 28.0 Anion Gap 5 BUN 26 H Creatinine 1.08 H Estim Creat Clear Calc 27.52 Est GFR (MDRD) Af Amer 62 Est GFR (MDRD) Non-Af 51 L BUN/Creatinine Ratio 24.1 H Glucose 102 Calcium 9.3 Urine Color Straw Urine Clarity Clear Urine pH 6.5 Ur Specific [place] 1.010 Urine Protein 15 H Urine Glucose (UA) Normal Urine Ketones Negative Urine Occult Blood 25 H Urine Nitrite Negative Urine Bilirubin Negative Urine Urobilinogen Normal Ur Leukocyte Esterase Negative Urine RBC 0 SEEN Urine WBC 0 SEEN Ur Squamous Epith Cells 0 SEEN Urine Bacteria 0 SEEN Urine Mucus 0 SEEN Radiography Diagnostic Testing: Clinical Impression(s) from Imaging Studies Abdomen/Pelvis CT 02/28/23 10:55 IMPRESSION: No suspicious solid organ abnormality, nonobstructing right nephrolithiasis, simple right renal cyst. No specific follow-up needed Small bowel ileus likely due to retained stool throughout the entirety of the colon No free intraperitoneal fluid, air, or suspicious adenopathy Diffuse atherosclerosis Electronically Signed: Edward Urias MD at 12:12 EDT Reading Location ID and State: [facility] / [place] , Service support , Discharge Plan Triage Chief Complaint: Abd Pain ED Provider: Cresencio Rollins Dx/Rx/DC Orders Clinical Impression: Abdominal pain, acute, left lower quadrant Instructions: ED Abdominal Pain Unkn Cause Fem Prescriptions: New polyethylene glycol 3350 [Laxative PEG 3350] 17 gram/dose powder 17 g PO DAILY Qty: 119 0RF Rx Instructions: 4 capfuls with 24 oz of water/beverage on first day No Action calcium citrate [Calcitrate] 200 mg (950 mg) tablet 200 mg PO DAILY simvastatin 40 mg tablet 40 mg PO QHS omeprazole 20 mg capsule,delayed release(DR/EC) 20 mg PO DAILY aspirin 81 mg tablet,chewable 81 mg PO DAILY GenTeal Tears Mild 0.1-0.3 % drops OPHTHALMIC levothyroxine 50 mcg tablet 50 mcg PO 6XW amoxicillin 500 mg capsule 2,000 mg PO ONCE PRN Rx Instructions: Prior to dental visits pregabalin 50 mg capsule 50 mg PO BID ropinirole 0.5 mg tablet 0.5 mg PO TID turmeric 400 mg capsule 400 mg PO DAILY ipratropium bromide 21 mcg (0.03 %) spray,non-aerosol 2 spray intranasal BID Rx Instructions: administer into each nostril losartan 50 mg tablet 50 mg PO DAILY Patient Comments: TAKE 1 TABLET BY MOUTH EVERY DAY Primary Care Provider: Anival Gamino Referrals: Anival Gamino MD [Primary Care Provider] - 3-5 Days if not improving Disposition Disposition: Home, Self Care
[2023-02-28 11:05] LABS: Bacteria 0 SEEN /hpf (None Seen); Mucous, Urine 0 SEEN /hpf (<or=2+); Red Blood Cells-Urine 0 SEEN /hpf (0-5); Squamous Epithelial Cells - UA 0 SEEN /hpf (5-10); White Blood Cells 0 SEEN /hpf (0-5)
[2023-02-28] MEDS: 0.9% Normal Saline 1,000 ML 125 ML IV (11:08)
[2023-02-28 11:09] LABS: Absolute Lymphocyte Count 0.76 X10^3/uL (0.83-4.51); Absolute Neutrophil Count 2.7 X10^3/uL (2.0-7.7); Basophil# 0.06 X10^3/uL; Basophil% 1.5 % (0-1); Eosinophil# 0.22 X10^3/uL; Eosinophils% 5.4 % (0-5); Hemoglobin 13.7 g/dL (12.0-15.0); Lymphocyte # 0.76 X10^3/ul (0.83-4.51); Lymphocyte % 18.8 % (19-41); Mean Corp Hgb Conc 32.6 g/dL (32-36); Mean Corpuscular Hgb 30.2 pg (27.0-32.0); Mean Corpuscular Volume 92.7 fL (81-99); Mean Platelet Vol. 10.1 fl (6.2-12.0); Monocyte# 0.32 X10^3/uL; Monocyte% 7.9 % (0-10); NRBC Flagged by Analyzer 0 % (0-5); Neutrophil # 2.66 X10^3/uL (2.7-7.7); Neutrophil % 65.9 % (47-70); Platelet Count 156 K/mm3 (150-450); RBC Distribution Width CV 11.9 % (11.6-14.6); Red Blood Count 4.53 M/mm3 (4.2-5.4)
[2023-02-28 11:11] LABS: Color, Urine Straw (Yellow); Glucose, Dipstick Normal (Normal); Ketone-Dipstick Negative (Negative); Leukocyte Esterase-Dipstick Negative /ul (Negative); Nitrite-Dipstick Negative (Negative); Occult Blood-Urine 25 /ul (Negative); Protein-Dipstick 15 mg/dl (Negative); Urine Bilirubin Dipstick Negative (Negative); Urine Clarity Clear (Clear); Urine Urobilinogen Normal (Normal); Urine pH 6.5 (5.0 - 8.0)
[2023-02-28 11:29] LABS: Anion Gap 5 (5-15); BUN 26 mg/dL (7-18); BUN/Creat Ratio 24.1 RATIO (10-20); Calcium,Total 9.3 mg/dL (8.5-10.1); Chloride 100 mmol/L (98-107); Creatinine, Serum 1.08 mg/dL (0.55-1.02); EST Glomerular Filtration Rate 51 mL/min (>60); Est Glom Filt Rate - Afr Amer 62 mL/min (>60); Estimated Creatinine Clearance 27.52 ml/min; Glucose 102 mg/dL (74-106); Potassium 3.7 mmol/L (3.5-5.1); Sodium Level 133 mmol/L (136-145)
== END 2023-02-28 13:23 | disposition home or self-care (01) ==
PROVIDERS: Emergency Provider Emergency Medicine; PCP Family Medicine; Visit Provider Emergency Medicine
DX: R10.32 Left lower quadrant pain (principal); N18.30 Chronic kidney disease, stage 3 unspecified; E78.2 Mixed hyperlipidemia; I12.9 Hypertensive chronic kidney disease with stage 1 through stage 4 chronic kidney disease, or unspecified chronic kidney disease; Z90.49 Acquired absence of other specified parts of digestive tract; Z90.710 Acquired absence of both cervix and uterus; Z79.82 Long term (current) use of aspirin; Z79.899 Other long term (current) drug therapy; K21.9 Gastro-esophageal reflux disease without esophagitis; E03.9 Hypothyroidism, unspecified; Z96.651 Presence of right artificial knee joint
CPT/HCPCS: 74177; 80048; 81001; 85025; 96360; 96361; 99283; J7030; Q9967; A4216

== ENCOUNTER 2023-06-08 15:17 | Emergency (ER) | payer MEDICARE, BC, SELFPAY ==
[2023-06-08 15:18] VITALS: BP 196/74; PULSE 81; RESP 16; TEMP 36.3; O2SAT 100; BMI 18.3
[2023-06-08 15:41] VITALS: BP 209/63; RESP 18
--- NOTE | 2023-06-08 15:46 | CT_ITS ---
EXAM: CT ABDOMEN AND PELVIS WITH INTRAVENOUS CONTRAST CLINICAL INDICATION: pain TECHNIQUE: Helically acquired images were obtained of the abdomen and pelvis with intravenous contrast. This CT exam was performed using one or more of the following dose reduction techniques: automated exposure control, adjustment of the mA and/or kV according to patient size, and/or use of iterative reconstruction technique. CONTRAST: IV 75mL Isovue-300 RADIATION DOSE: CTDIvol = 11.44 mGy, DLP = 270.32 mGy-cm COMPARISON: 02/28/2023 FINDINGS: LOWER THORAX: Unremarkable. Lung bases are clear. No cardiomegaly. No significant pericardial effusion. ABDOMEN: LIVER: Unremarkable. Homogeneous. No focal mass. GALLBLADDER AND BILE DUCTS: Unremarkable. No calcified gallstones. No gallbladder distention or wall edema. No intra- or extrahepatic biliary ductal dilation. PANCREAS: Unremarkable. No focal cystic or solid mass. SPLEEN: Unremarkable. Normal size without focal cystic or solid mass. ADRENALS: Unremarkable. No nodules. KIDNEYS AND URETERS: No acute abnormalities of the kidneys. Stable small nonobstructing stone of lower pole of the right kidney. Small bilateral renal cysts, stable. No masses. No hydronephrosis. STOMACH AND BOWEL: Evaluation of the GI tract is limited by absence of oral contrast. Cannot exclude stomach wall thickening. No dilated loops of bowel or evidence for obstruction. Cannot exclude segmental thickening of the bangura of the small or large bowel. Cannot exclude enteritis or colitis. Marked diffuse fecal retention. Diverticulosis without definite diverticulitis. Appendix is absent. PELVIS: APPENDIX: Appendix is absent. BLADDER: Unremarkable. REPRODUCTIVE: Absent uterus. ABDOMEN and PELVIS: INTRAPERITONEAL SPACE: Unremarkable. No ascites or other fluid collection. No free air. BONES/JOINTS: Mild levoconvex scoliosis of the lumbar spine. Multilevel mild degenerative disc disease. No suspicious lytic or blastic abnormality. SOFT TISSUES: Unremarkable. No discrete abdominal or pelvic wall hernia. VASCULATURE: Heavily calcified aorta with no aneurysm. LYMPH NODES: Unremarkable. No enlarged lymph nodes. CT/Abdomen/Pelvis W IV Cont ONLY IMPRESSION: No definite acute or significant abnormality seen. Electronically Signed: Miguel Aguilar MD at 17:15 EDT ,
--- NOTE | 2023-06-08 15:48 | EDS_ITS ---
HPI HPI - GI History of Present Illness Chief Complaint: Abd Pain Informant: patient Narrative Narrative: Patient presents with a lower quadrant pain. Patient has been having pain off and on since December of this year. She was seen approximately January. She had CT scan that showed some constipation. She has been on MiraLAX since. She has regular bowel movements now. Yesterday she had a bowel movement and she has had a notable increase in her pain in the left lower quadrant ever since the bowel movement. She moved her bowels again today. No blood. No diarrhea. She has no nausea and vomiting. She cannot correlate anything to worsen this pains that she is eating or drinking. She has never had fevers or chills. She did have some pain in her left flank yesterday but she states she twisted and moved and it seemed to get better. She denies urinary symptoms. She denies known history of diverticular disease or kidney stones. She is not on any blood thinners other than baby aspirin. She has had complete hysterectomy and appendectomy in the past. [facility] Medical History Abnormal echocardiogram Actinic keratitis CKD (chronic kidney disease) stage 3, GFR 30-59 ml/min Dyspareunia due to medical condition in female Essential hypertension GERD (gastroesophageal reflux disease) Hiatal hernia Hypothyroidism Mixed hyperlipidemia Non-rheumatic mitral regurgitation Psoriasis Rosacea Seborrheic keratosis Urinary tract infection Home Medications aspirin 81 mg chewable tablet 81 mg PO DAILY 11/08/18 [History Last Taken Unknown] calcium citrate 200 mg (950 mg) tablet (Calcitrate) 200 mg PO DAILY 11/08/18 [History Last Taken Unknown] dextran 70-hypromellose 0.1 %-0.3 % eye drops (GenTeal Tears Mild) drp ophthalmic (eye) 11/08/18 [History Last Taken Unknown] omeprazole 20 mg capsule,delayed release 20 mg PO DAILY 11/08/18 [History Last T aken Unknown] simvastatin 40 mg tablet 40 mg PO QHS 11/08/18 [History Last Taken Unknown] losartan 50 mg tablet 50 mg PO DAILY 01/27/21 [History Last Taken Unknown] ipratropium bromide 21 mcg (0.03 %) nasal spray 2 spray intranasal BID 02/11/23 [History Last Taken Unknown] pregabalin 50 mg capsule 50 mg PO BID 02/11/23 [History Last Taken Unknown] ropinirole 0.5 mg tablet 0.5 mg PO TID 02/11/23 [History Last Taken Unknown] turmeric 400 mg capsule 400 mg PO DAILY 02/11/23 [History Last Taken Unknown] amoxicillin 500 mg capsule 2,000 mg PO ONCE PRN 02/23/23 [History Last Taken Unknown] levothyroxine 50 mcg tablet 50 mcg PO 6XW 02/23/23 [History Last Taken Unknown] polyethylene glycol 3350 17 gram/dose oral powder (Laxative PEG 3350) 17 g PO DAILY #119 grams 02/28/23 [Rx Last Taken Unknown] dicyclomine 10 mg capsule 10 mg PO TID PRN abdominal pain #20 caps 06/08/23 [Rx Last Taken Unknown] Allergy/AdvReac Type Severity Reaction Status Date / Time hypromellose Allergy Severe Rednesss, Verified 02/28/23 10:27 [From GenTeal (hypromellose)] watering, pain in eye NSAIDS (Non-Steroidal Allergy Mild Other Verified 02/28/23 10:27 Anti-Inflamma Sulfa (Sulfonamide Allergy Rash Verified 02/28/23 10:27 Antibiotics) fluticasone [From Flonase] AdvReac Unknown jittery Verified 02/28/23 10:27 salicylates AdvReac Unknown ringing in Verified 02/28/23 10:27 ears Family History Mother Myocardial infarction, Onset Age: 70 Surgical History History of appendectomy History of right knee joint replacement (~2021) S/P DHIRAJ (total abdominal hysterectomy) Social History Smoking Status: Never smoker alcohol intake: never substance use type: does not use caffeine: No what type of physical activity do you participate in: walking seatbelt use: always do you feel safe at home: Yes additional social history: Magdi- Retired ROS ROS ED ROS Narrative A complete review of systems was performed and is negative except as documented in the history of present illness. Some specific details below. Constitutional: No recent fevers or chills. EYE: No visual complaints or pain. ENT: No difficulty swallowing. No swelling. No pain. History of GERD but no current symptoms. CV: No chest pain or palpitations. Respiratory: No dyspnea. No hemoptysis. No difficulty taking breaths. GI: Please see history of present illness. : No frequency dysuria or hematuria. No history of stones. Musculoskeletal: No recent trauma. See history of present illness. Skin: No rash. Nondiaphoretic. Neuro: No weakness or numbness. Endocrine: No polyuria or polydipsia. EXAM Physical Exam Narrative Exam Narrative: CONSTITUTIONAL: Patient is nontoxic in appearance. The patient looks comfortable. HEENT: No notable trauma. Mucous membranes moist. No sinus tenderness. No indication of pain with swallowing. EYES: No conjunctival injection. No icterus. CARDIOVASCULAR: Regular rate. Regular rhythm. No notable murmur. No JVD. RESPIRATORY: No respiratory distress. Breathing is unlabored. No wheezes. No rhonchi. No rales. No pain with a deep breath. GASTROINTESTINAL: Not distended. Bowel sounds are normal. She does have very mild tenderness to left lower quadrant. But no rebound or guarding. No mass. She states she feels like the area is full but I do not actually feel a mass. GENITOURINARY: No tenderness over the bladder. No CVA tenderness at this time. MUSCULOSKELETAL: Atraumatic. No peripheral edema. No cord. No tenderness along the deep venous system. No asymmetry. NEUROLOGICAL: Patient is alert and appropriate. No focal deficit noted. SKIN: No noted rashes. No diaphoresis. PSYCHIATRIC: Patient is calm. Mood is appropriate. Const Vital Signs: 06/08/23 15:18 06/08/23 15:41 06/08/23 17:06 Temperature 97.4 F L Temperature Source Temporal Pulse Rate 81 Respiratory Rate 16 18 18 Blood Pressure 196/74 H 209/63 H 171/78 H Blood Pressure Mean 114 111 109 Pulse Ox 100 Oxygen Delivery Method Room Air Room Air Room Air MDM MDM MDM Narrative Medical decision making narrative: Patient CBC shows minimally low white count which is nonspecific. Hemoglobin is normal. Platelets are just meant low at 132,000. Patient's electrolytes show no marked abnormalities. Creatinine is actually well-preserved. Urine is clean. My independent interpretation of her CT shows some slight increased stool and fluid but no straw patient. No diverticulitis. Final reading is no definite acute uterus skin abnormality seen. Patient needs follow-up. We will try a low-dose of Bentyl to see if this will help her when she has symptoms. She is still eating and drinking well. No urinary symptoms. She has not had a colonoscopy in about 6 years which is not that long ago for her age. I will refer her to Dr. Cuevas. She asked if I could call the office and leave her information which I will do. I did call and leave a message with the patient's name date of and phone number. Lab Data Attestation: I reviewed the patient's lab results. Labs: Laboratory Results - last 24 hr 06/08/23 06/08/23 15:56 16:05 WBC 3.0 L RBC 4.47 Hgb 13.3 Hct 40.5 MCV 90.6 MCH 29.8 MCHC 32.8 RDW Std Deviation 41.0 RDW Coeff of Fatimah 12.4 Plt Count 132 L MPV 10.2 Immature Gran % (Auto) 0.000 Neut % (Auto) 65.6 Lymph % (Auto) 20.9 [place] % (Auto) 6.1 Eos % (Auto) 6.4 H Baso % (Auto) 1.0 Absolute Neuts (auto) 2.0 Absolute Lymphs (auto) 0.62 L Nucleated RBC % 0 Sodium 137 Potassium 4.2 Chloride 104 Carbon Dioxide 28.0 Anion Gap 5 BUN 25 H Creatinine 1.02 Estim Creat Clear Calc 28.49 Est GFR (MDRD) Af Amer 66 Est GFR (MDRD) Non-Af 55 L BUN/Creatinine Ratio 24.5 H Glucose 109 H Calcium 9.6 Urine Color Yellow Urine Clarity Clear Urine pH 6.0 Ur Specific [place] 1.010 Urine Protein Negative Urine Glucose (UA) Normal Urine Ketones Negative Urine Occult Blood 25 H Urine Nitrite Negative Urine Bilirubin Negative Urine Urobilinogen Normal Ur Leukocyte Esterase Negative Urine RBC 0 SEEN Urine WBC 0 SEEN Ur Squamous Epith Cells 0 SEEN Urine Bacteria 0 SEEN Urine Mucus 0 SEEN Radiography Diagnostic Testing: Clinical Impression(s) from Imaging Studies Abdomen/Pelvis CT 06/08/23 15:46 IMPRESSION: No definite acute or significant abnormality seen. Electronically Signed: Miguel Aguilar MD at 17:15 EDT , Discharge Plan Triage Chief Complaint: Abd Pain ED Provider: Riccardo Diggs Dx/Rx/DC Orders Clinical Impression: Abdominal pain Instructions: ED Abdominal Pain Unkn Cause Fem Prescriptions: New dicyclomine 10 mg capsule 10 mg PO TID PRN (Reason: abdominal pain) Qty: 20 0RF No Action calcium citrate [Calcitrate] 200 mg (950 mg) tablet 200 mg PO DAILY simvastatin 40 mg tablet 40 mg PO QHS omeprazole 20 mg capsule,delayed release(DR/EC) 20 mg PO DAILY aspirin 81 mg tablet,chewable 81 mg PO DAILY GenTeal Tears Mild 0.1-0.3 % drops OPHTHALMIC levothyroxine 50 mcg tablet 50 mcg PO 6XW amoxicillin 500 mg capsule 2,000 mg PO ONCE PRN Rx Instructions: Prior to dental visits pregabalin 50 mg capsule 50 mg PO BID ropinirole 0.5 mg tablet 0.5 mg PO TID turmeric 400 mg capsule 400 mg PO DAILY ipratropium bromide 21 mcg (0.03 %) spray,non-aerosol 2 spray intranasal BID Rx Instructions: administer into each nostril losartan 50 mg tablet 50 mg PO DAILY Patient Comments: TAKE 1 TABLET BY MOUTH EVERY DAY polyethylene glycol 3350 [Laxative PEG 3350] 17 gram/dose powder 17 g PO DAILY Qty: 119 0RF Rx Instructions: 4 capfuls with 24 oz of water/beverage on first day Primary Care Provider: Anival Gamino Referrals: Friend,DO Gurvinder [Med Staff - Active Staff] - As soon as possible Anival Gamino MD [Primary Care Provider] - Disposition Disposition: Home, Self Care
[2023-06-08 16:01] LABS: Absolute Lymphocyte Count 0.62 X10^3/uL (0.83-4.51); Basophil# 0.03 X10^3/uL; Eosinophil# 0.19 X10^3/uL; Eosinophils% 6.4 % (0-5); Hematocrit 40.5 % (37-47); Hemoglobin 13.3 g/dL (12.0-15.0); Lymphocyte # 0.62 X10^3/ul (0.83-4.51); Lymphocyte % 20.9 % (19-41); Mean Corp Hgb Conc 32.8 g/dL (32-36); Mean Corpuscular Hgb 29.8 pg (27.0-32.0); Mean Corpuscular Volume 90.6 fL (81-99); Mean Platelet Vol. 10.2 fl (6.2-12.0); Monocyte# 0.18 X10^3/uL; Monocyte% 6.1 % (0-10); NRBC Flagged by Analyzer 0 % (0-5); Neutrophil # 1.95 X10^3/uL (2.7-7.7); Neutrophil % 65.6 % (47-70); Platelet Count 132 K/mm3 (150-450); RBC Distribution Width CV 12.4 % (11.6-14.6); Red Blood Count 4.47 M/mm3 (4.2-5.4)
[2023-06-08] MEDS: 0.9% Normal Saline (1000mL) 500 ML 1000 ML IV (16:06)
[2023-06-08 16:11] LABS: Bacteria 0 SEEN /hpf (None Seen); Mucous, Urine 0 SEEN /hpf (<or=2+); Red Blood Cells-Urine 0 SEEN /hpf (0-5); Squamous Epithelial Cells - UA 0 SEEN /hpf (5-10); White Blood Cells 0 SEEN /hpf (0-5)
[2023-06-08 16:19] LABS: Anion Gap 5 (5-15); BUN 25 mg/dL (7-18); BUN/Creat Ratio 24.5 RATIO (10-20); Calcium,Total 9.6 mg/dL (8.5-10.1); Chloride 104 mmol/L (98-107); Creatinine, Serum 1.02 mg/dL (0.55-1.02); EST Glomerular Filtration Rate 55 mL/min (>60); Est Glom Filt Rate - Afr Amer 66 mL/min (>60); Estimated Creatinine Clearance 28.49 ml/min; Glucose 109 mg/dL (74-106); Potassium 4.2 mmol/L (3.5-5.1); Sodium Level 137 mmol/L (136-145)
[2023-06-08 16:21] LABS: Color, Urine Yellow (Yellow); Glucose, Dipstick Normal (Normal); Ketone-Dipstick Negative (Negative); Leukocyte Esterase-Dipstick Negative /ul (Negative); Nitrite-Dipstick Negative (Negative); Occult Blood-Urine 25 /ul (Negative); Protein-Dipstick Negative (Negative); Urine Bilirubin Dipstick Negative (Negative); Urine Clarity Clear (Clear); Urine Urobilinogen Normal (Normal)
[2023-06-08 17:06] VITALS: BP 171/78; RESP 18
--- NOTE | 2023-06-08 17:07 | ED.RN ---
THIS RN ATTEMPTED TO CALL PT PER HER REQUEST. PHONE WENT TO [facility]ICEMAIL AT [phone].
[2023-06-08 18:45] VITALS: BP 157/48
== END 2023-06-08 18:46 | disposition home or self-care (01) ==
PROVIDERS: Emergency Provider Emergency Medicine; PCP Family Medicine; Visit Provider Emergency Medicine
DX: R10.32 Left lower quadrant pain (principal); N18.30 Chronic kidney disease, stage 3 unspecified; I12.9 Hypertensive chronic kidney disease with stage 1 through stage 4 chronic kidney disease, or unspecified chronic kidney disease; E78.2 Mixed hyperlipidemia; K21.9 Gastro-esophageal reflux disease without esophagitis; Z79.899 Other long term (current) drug therapy; Z79.82 Long term (current) use of aspirin; E03.9 Hypothyroidism, unspecified; Z90.49 Acquired absence of other specified parts of digestive tract; Z96.651 Presence of right artificial knee joint; Z90.710 Acquired absence of both cervix and uterus
CPT/HCPCS: 74177; 80048; 81001; 85025; 96360; 99283; J7030; Q9967; A4216

== ENCOUNTER → 2024-02-04 | Outpatient (CLI) | payer MEDICARE, BC, SELFPAY ==
[2024-02-04 10:50] LABS: Protein, Urine (Random) < 6.0 mg/dL (<11.9); Protein:Creat Ratio 182 mg/g CRE (0-200)
[2024-02-04 10:55] LABS: Albumin, Serum 3.5 g/dL (3.2-5.0); BUN 25 mg/dL (7-18); BUN/Creat Ratio 21.2 RATIO (10-20); Calcium,Total 9.5 mg/dL (8.5-10.1); Chloride 104 mmol/L (98-107); Creatinine, Serum 1.18 mg/dL (0.55-1.02); EST Glomerular Filtration Rate 46 mL/min (>60); Est Glom Filt Rate - Afr Amer 56 mL/min (>60); Glucose 116 mg/dL (74-106); Phosphorus 3.6 mg/dL (2.5-4.9); Potassium 4.1 mmol/L (3.5-5.1); Sodium Level 137 mmol/L (136-145)
== END | disposition home or self-care (01) ==
LOC: LAB 09:25
PROVIDERS: PCP Family Medicine; Referring Provider Internal Medicine Nephrology; Visit Provider Internal Medicine Nephrology
DX: N18.31 Chronic kidney disease, stage 3a (principal); R76.8 Other specified abnormal immunological findings in serum
CPT/HCPCS: 36415; 80069; 82570; 84156

== ENCOUNTER → 2024-03-25 | Outpatient (CLI) | payer MEDICARE, BC, SELFPAY ==
--- NOTE | 2024-03-25 09:49 | ECHOD_ITS ---
Reason For Study: MURMUR Procedure This was a 2D Doppler, Color Flow transthoracic echocardiogram. Exam performed in department. Left Ventricle Normal LV size. Moderate concentric left ventricular hypertrophy. Left ventricular systolic function is normal. The left ventricular ejection fraction is 70 %. Stage 1 diastolic dysfunction. No regional wall motion abnormalities noted. Right Ventricle Normal RV size. Normal systolic function. Atria Normal left atrium. Normal right atrium. Mitral Valve There is moderate mitral annular calcification. Mild (1+) mitral valve insufficiency. Tricuspid Valve Normal tricuspid valve. Mild (1+) tricuspid valve insufficiency. Pulmonary artery systolic pressure is 30 mmHg. Aortic Valve Trisinus/trileaflet aortic valve. Mild focal aortic valve calcification. Mean aortic valve gradient 5 mmHg. Mild (1+) aortic valve insufficiency. Pulmonic Valve Normal pulmonic valve. Great Vessels Calcified aortic root. The pulmonary artery is normal size. Inferior vena cava collapse with respiration. Pericardium/Pleural No pericardial effusion. MMode/2D Measurements & Calculations RVDd: 2.7 cm LVOT diam: 1.5 cm LAV(MOD-bp): 45.6 ml LVOT area: 1.8 cm2 LAV(MOD-bp) Indexed: 31.2 ml/m2 LAV(MOD-sp2): 47.8 ml LAV(MOD-sp4): 39.3 ml SV(MOD-sp4): 39.0 ml SV(sp4-el): 40.5 ml LVAd ap4: 21.2 cm2 LVLd ap4: 7.0 cm EDV(MOD-sp4): 52.8 ml EDV(sp4-el): 54.2 ml LVAs ap4: 9.3 cm2 LVLs ap4: 5.3 cm ESV(MOD-sp4): 13.8 ml ESV(sp4-el): 13.7 ml EF(MOD-sp4): 73.8 % EF(sp4-el): 74.7 % LA A4 area: 15.1 cm2 RA A4 area: 11.5 cm2 TAPSE: 1.7 cm Time Measurements MV dec time: 0.23 sec Doppler Measurements & Calculations MV E max wagner: 101.2 cm/sec Lat Peak E' Wagner: 7.3 cm/sec Med Peak E' Wagner: 4.4 cm/sec MV A max wagner: 112.9 cm/sec E/E' lat: 13.8 E/E' med: 22.9 MV E/A: 0.90 MV V2 max: 130.1 cm/sec MV dec slope: 446.6 cm/sec2 Ao V2 max: 164.9 cm/sec MV max P.8 mmHg Ao max P.9 mmHg MV V2 mean: 63.3 cm/sec Ao V2 mean: 108.4 cm/sec MV mean P.0 mmHg Ao mean P.5 mmHg MV V2 VTI: 52.0 cm Ao V2 VTI: 40.5 cm MVA(VTI): 1.0 cm2 AV (velocity ratio): 0.74 FELECIA(I,D): 1.3 cm2 FELECIA(V,D): 1.3 cm2 AI max wagner: 392.8 cm/sec LV V1 max: 122.4 cm/sec SV(LVOT): 53.4 ml AI max P.7 mmHg LV V1 max P.0 mmHg LV V1 mean P.3 mmHg AI dec slope: 224.2 cm/sec2 LV V1 mean: 83.8 cm/sec AI P1/2t: 513.2 msec LV V1 VTI: 30.0 cm PA V2 max: 94.1 cm/sec TR max wagner: 249.8 cm/sec PA max PG (full): 1.7 mmHg TR max P.0 mmHg ECHO/Echo Complete Interpretation Summary Normal LV size. Moderate concentric left ventricular hypertrophy. The left ventricular ejection fraction is 70 %. Left ventricular systolic function is normal. Mild focal aortic valve calcification. Mild (1+) aortic valve insufficiency. Stage 1 diastolic dysfunction. Ordering Physician: Eneida Arroyo Referring Physician: Eneida Arroyo Performed By: Mary Bowen and Student
== END | disposition home or self-care (01) ==
LOC: CVS 09:44
PROVIDERS: PCP Family Medicine; Referring Provider Physician Assistant Medical; Visit Provider Physician Assistant Medical
DX: I34.0 Nonrheumatic mitral (valve) insufficiency (principal)
CPT/HCPCS: 93306

== ENCOUNTER 2024-04-15 10:00 | Outpatient (RCR) | payer MEDICARE, BC, SELFPAY ==
--- NOTE | 2024-03-16 16:14 | HP.OTEVAL_ITS ---
Patient's Visit Information Visit Information Visit Information: DILLON ALBERTS is a 88 year old F, referred to Occupational Therapy by DANIELLE KARIMI, with a diagnosis of dislocation of proximal interphalangeal joint of right middle finger. Date of Evaluation: 03/16/24 Occupational Therapist: Eneida Reynaga, OTR/L, CHT Subjective Subjective: This 88 year old female arrives with dx of dislocation of proximal interphalangeal joint of right middle finger- dorsal dislocation. Pt fell in october before dislocation, had pain and went to see doctor 12/31/23 and next visit was 02/04/24. States does not know how dislocation occurred but felt pain. Surgery 02/12/24- s/p 4 weeks 5 days. Pt has limited R MF ROM and tingling sensation in R MF tip. Right hand dominant. Pt lives with - single story house with basement. Has difficulty opening jar/items, using silverware and eating, tying shoes, brushing teeth (uses other hand), washing/wringing rag out, reading, washing back- bathing. States having no pain right now - when bending may get to a 3/4. Pain R MF: Current Pain Intensity: 0 Pain Intensity Range: 4 ROM PIP: R MF -30/56 L 0/98 DIP: R MF -13/34 L0/66 ROM Comments: noted slight right MF PIP extension lag noted at this time ( therapist adj orthosis to decrease lag) Strength Strength Comments: weight restriction- not tested at this time Sensation Sensation Comments: states tingling sensation of R MF tip Quick DASH-Disab of Arm,Shoulder& Hand Quick DASH Score: 47.7250 Goals Goal:: strength will be tested at later date when weight restriction is released pt will demo 30# or greater emergency medicine physician assistant strength to increase I in daily functional activities by d/c. Goal:: pt will increase RUE ROM equal to or greater than LUE to increase I in daily functional activities by d/c. Goal:: pt will report I in manipulating fork/spoon/knife when eating and return to PLOF by d/c. pt will report I with ADLs and IADLs without compensation by end of POC. 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 pt is recommended to complete OT 2x a week for 3 weeks to address above impairments. Therapy session was directly supervised and doc. approved by Eneida Reynaga OTR/Beatriz,CHT. Rehabilitation Potential: Good Anticipated Interventions Anticipated Interventions: A/AAROM/PROM, Strengthening, Scar Care, Triggerpoint Release, Desensitization, Modalities, Orthoses, Joint Protection/Energy Conservation, Ergonomic Education, Education re assistive Equipment, Education re Diagnosis and Home Program Visit Plan Frequency: 2x /Week Duration: 3 Weeks General Plan: improve ROM increase strength ed ADL and assistive devices encourage full MCP and DIP joint motion unrestricted. custom splint at all times when not working on ROM and at night for total of 12 weeks. strict NWB. at 4 weeks from surgery, may begin active flexion at PIP joint. strengthening to begin at 8 weeks. TEXT: Thank you for the opportunity to evaluate your patient. For Medicare and Medicare HMO plans, please review the plan of care and approve it. It will need to be FAXED BACK to us at [phone] for Medicare purposes. Please let me know if there are questions or concerns regarding this plan of care. Physician Signature: Date:
== END 2024-04-15 19:00 | disposition home or self-care (01) ==
LOC: OT 10:00
PROVIDERS: PCP Family Medicine
DX: S63.282D Dislocation of proximal interphalangeal joint of right middle finger, subsequent encounter (principal); Z96.698 Presence of other orthopedic joint implants
CPT/HCPCS: 97110; 97140; 97165; 97530

== ENCOUNTER → 2024-06-29 | Outpatient (CLI) | payer MEDICARE, BC, SELFPAY ==
[2024-06-29 09:03] LABS: Bacteria 0 SEEN /hpf (None Seen); Mucous, Urine 0 SEEN /hpf (<or=2+); Squamous Epithelial Cells - UA 0 SEEN /hpf (5-10)
[2024-06-29 09:47] LABS: Color, Urine Yellow (Yellow); Glucose, Dipstick Normal (Normal); Ketone-Dipstick Negative (Negative); Leukocyte Esterase-Dipstick 100 /ul (Negative); Nitrite-Dipstick Negative (Negative); Occult Blood-Urine 25 /ul (Negative); Protein-Dipstick Negative (Negative); Specific Gravity, Urine 1.005 (1.002-1.030); Urine Bilirubin Dipstick Negative (Negative); Urine Clarity Sl. Cloudy (Clear); Urine Urobilinogen Normal (Normal); Urine pH 6.5 (5.0 - 8.0)
[2024-06-29 09:48] LABS: Hematocrit 41.3 % (37-47); Hemoglobin 13.6 g/dL (12.0-15.0); Mean Corp Hgb Conc 32.9 g/dL (32-36); Mean Corpuscular Hgb 30.3 pg (27.0-32.0); Mean Platelet Vol. 10.5 fl (6.2-12.0); Platelet Count 172 K/mm3 (150-450); RBC Distribution Width CV 12.3 % (11.6-14.6); RBC Distribution Width SD 41.4 fl (35.1-43.9); Red Blood Count 4.49 M/mm3 (4.2-5.4); White Blood Count 4.8 K/mm3 (4.4-11.0)
[2024-06-29 09:54] LABS: Red Blood Cells-Urine 0-5 SEEN /hpf (0-5); White Blood Cells 0-5 SEEN /hpf (0-5)
[2024-06-29 10:04] LABS: Protein, Urine (Random) < 6.0 mg/dL (<11.9)
[2024-06-29 10:34] LABS: Albumin, Serum 3.7 g/dL (3.2-5.0); BUN 14 mg/dL (7-18); BUN/Creat Ratio 13.3 RATIO (10-20); Calcium,Total 9.4 mg/dL (8.5-10.1); Chloride 104 mmol/L (98-107); Creatinine, Serum 1.05 mg/dL (0.55-1.02); EST Glomerular Filtration Rate 53 mL/min (>60); Est Glom Filt Rate - Afr Amer 64 mL/min (>60); Glucose 103 mg/dL (74-106); Phosphorus 2.9 mg/dL (2.5-4.9); Potassium 3.8 mmol/L (3.5-5.1); Sodium Level 137 mmol/L (136-145)
[2024-06-30 11:10] LABS: ANTINUCLEAR ANTIBODIES DIRECT Negative (Negative); Anti-dsDNA Ab 2 IU/mL (0-9)
[2024-06-30 13:08] LABS: Complement C3 140 mg/dL (82-167); Cytoplasmic Ab (C-ANCA) <1:20 titer (Neg:<1:20); Perinuclear Ab (P-ANCA) <1:20 titer (Neg:<1:20)
== END | disposition home or self-care (01) ==
PROVIDERS: PCP Family Medicine; Referring Provider Internal Medicine Nephrology; Visit Provider Internal Medicine Nephrology
DX: R76.8 Other specified abnormal immunological findings in serum (principal); N18.31 Chronic kidney disease, stage 3a; D64.9 Anemia, unspecified
CPT/HCPCS: 36415; 80069; 81001; 82570; 84156; 85027; 86037; 86038; 86160; 86225

== ENCOUNTER → 2024-07-06 | Outpatient (CLI) | payer MEDICARE, BC, SELFPAY | END | disposition home or self-care (01) | LOC: LAB 10:01 | PROVIDERS: PCP Family Medicine; Referring Provider Internal Medicine Nephrology; Visit Provider Internal Medicine Nephrology | DX: N39.0 Urinary tract infection, site not specified (principal) | CPT/HCPCS: 87086 ==

== ENCOUNTER → 2025-02-28 | Outpatient (CLI) | payer MEDICARE, BC, SELFPAY ==
[2025-02-28 12:40] LABS: Hematocrit 41.7 % (37-47); Hemoglobin 13.6 g/dL (12.0-15.0); Mean Corp Hgb Conc 32.6 g/dL (32-36); Mean Corpuscular Volume 92.7 fL (81-99); Mean Platelet Vol. 10.4 fl (6.2-12.0); Platelet Count 184 K/mm3 (150-450); RBC Distribution Width CV 12.3 % (11.6-14.6); RBC Distribution Width SD 42.1 fl (35.1-43.9); Red Blood Count 4.50 M/mm3 (4.2-5.4); White Blood Count 4.8 K/mm3 (4.4-11.0)
[2025-02-28 13:19] LABS: AST(SGOT) 27 U/L (<=31); Alanine Aminotransfer ALT/SGPT 17 U/L (<=34); Albumin, Serum 4.4 g/dL (3.4-4.8); Alkaline Phosphatase 82 U/L (35-104); Anion Gap 11 (5-15); BUN 25 mg/dL (4-19); BUN/Creat Ratio 23.6 RATIO (10-20); Calcium,Total 10.1 mg/dL (7.6-11.0); Carbon Dioxide 25.9 mmol/L (21.0-32.0); Chloride 103 mmol/L (98-108); Cholesterol 184 mg/dL (<=200); Globulin 2.5 g/dL (2.2-4.2); Glucose 96 mg/dL (70-99); Low Density Lipoprotein Calc. 84 mg/dL; Potassium 4.3 mmol/L (3.3-5.1); Triglycerides 95 mg/dL; Very Low Density Lipoprotein 19 mg/dL (5-40); cholesterol:hdl ratio screen 2.27
== END | disposition home or self-care (01) ==
LOC: LAB 11:54
PROVIDERS: PCP Family Medicine; Referring Provider Physician Assistant Medical; Visit Provider Physician Assistant Medical
DX: I10 Essential (primary) hypertension (principal); R07.9 Chest pain, unspecified; E78.2 Mixed hyperlipidemia
CPT/HCPCS: 36415; 80053; 80061; 85027

== ENCOUNTER → 2025-03-24 | Outpatient (CLI) | payer MEDICARE, BC, SELFPAY ==
--- OUTSIDE RECORDS SUMMARY | 2025-03-24 06:46 | XMS RPT_ITS | CCD ---
Author Organization [facility] Care Team Providers Care Portuguese Tutor Name Role Phone Jeffy Fields MD Primary Care Provider [phone] JEFFY FIELDS MD Primary Care Physician Jeffy Fields MD Primary Care Provider Jeffy Fields MD Primary Care Provider Jeffy Fields MD Primary Care Provider Dr. Jeffy Fields Primary Care Provider Eneida Rodriguez Attending Provider Unavailable Dr. Jeffy Fields Referring Provider Dr. Pacheco Farrar Attending Provider Jeffy Fields MD Primary Care Provider Jeffy Fields MD Primary Care Provider Jeffy Fields MD Primary Care Provider Haagen ADMINISTRATIVE ACCOUNTANT.CIVIL ENGINEERING PROJECT DESIGNER, Gloria Unavailable Suppan ADMINISTRATIVE ACCOUNTANT.CIVIL ENGINEERING PROJECT DESIGNER, Jennifer A Unavailable [phone] Suppan ADMINISTRATIVE ACCOUNTANT.CIVIL ENGINEERING PROJECT DESIGNER, Jennifer A Unavailable Suppan ADMINISTRATIVE ACCOUNTANT.CIVIL ENGINEERING PROJECT DESIGNER, Jennifer A Unavailable Jeffy Fields MD Primary Care Provider [phone] BACKER, SPIRITISM Attending Unavailable BACKER, SPIRITISM Referring Unavailable JEFFY FIELDS Primary Care Unavailable BACKER, SPIRITISM Referring Unavailable JEFFY FIELDS Primary Care Unavailable ZENON HUSTON Attending Unavailable DIAMOND, JEFFY Primary Care Unavailable ZENON HUSTON Attending Unavailable DIAMOND, JEFFY Primary Care Unavailable ZENON HUSTON Attending Unavailable DIAMOND, JEFFY Primary Care Unavailable KATRIN CARABALLO Attending Unavailable DIAMOND, JEFFY Primary Care Unavailable ROBEL, ZENON Referring Unavailable DIAMOND, JEFFY Primary Care Unavailable KATRIN CARABALLO Referring Unavailable DIAMOND, JEFFY Primary Care Unavailable JOSE MARTIN JEAN Referring Unavailable DIAMOND, JEFFY Primary Care Unavailable MCGREALKATRIN Referring Unavailable DIAMOND, JEFFY Primary Care Unavailable DIAMOND, JEFFY Primary Care Unavailable ROBEL, ZENON Attending Unavailable DIAMOND, JEFFY Primary Care Unavailable ROBEL, ZENON Referring Unavailable DIAMOND, JEFFY Primary Care Unavailable ROBEL, ZENON Admitting Unavailable ROBEL, ZENON Attending Unavailable DIAMOND, JEFFY Primary Care Unavailable ROBEL, ZENON Attending Unavailable DIAMOND, JEFFY Primary Care Unavailable Diamond , Dr. Florian Primary Care Provider [phone] Dr. Jeffy Fields MD Referring Provider Eneida Blackman Attending Provider [phone] Eneida Blackman Referring Provider Pacheco Farrar Attending Unavailable Starbrick, Jeffy Primary Care Unavailable Diamond, Jeffy Referring Unavailable Starbrick, Jeffy Primary Care Unavailable Eneida Arroyo Attending Unavailabl e Diamond, Jeffy Primary Care Unavailable Jen Harper Attending Unavailable Jen Harper Referring Unavailable Starbrick, Jeffy Primary Care Unavailable Jen Harper Attending Unavailable Diamodn, Jeffy Primary Care Unavailable Eneida Arroyo Attending Unavailabl Eneida Ureña Referring Unavailabl e Diamond, Jeffy Primary Care Unavailable Eneida Arroyo Attending UnavailEneida Mares Referring Unavailabl e Jen Harper Referring Unavailable Diamond, Jeffy Primary Care Unavailable Jen Harper Attending Unavailable Eneida Arroyo Attending Unavailabl Eneida Ureña Referring Unavailabl e Starbrick, Jeffy Primary Care Unavailable ROBEL, ZENON Consulting Unavailable ANGEL LUIS BARBOZA Attending Unavailable ANGEL LUIS BARBOZA Referring Unavailable Diamond, Jeffy Primary Care Unavailable MIMI ELIZONDO Attending Unavailable DIAMOND, JEFFY J Primary Care Unavailable FRANCOIS ROSARIO Referring Unavailable DIAMOND, JEFFY J Primary Care Unavailable DIAMOND, JEFFY J Primary Care Unavailable JEFFY CLARK JR Attending Unavailable DIAMOND, JEFFY J Primary Care Unavailable DIAMOND, JEFFY J Primary Care Unavailable DIAMOND, JEFFY J Referring Unavailable DIAMOND, JEFFY J Primary Care Unavailable JENNIFER BROUSSARD Attending Unavailable JEFFY FIELDS Primary Care Unavailable JEFFY CLARK JR Attending Unavailable JEFFY FIELDS Primary Care Unavailable JEFFY FIELDS Referring Unavailable JEFFY FIELDS Primary Care Unavailable JEFFY FIELDS Referring Unavailable JEFFY FIELDS Primary Care Unavailable JEFFY FIELDS Attending Unavailable JEFFY FIELDS Primary Care Unavailable Allergies Allergy Classification Reported Allergen(s) Allergy Type Date of Onset Reaction(s) Facility Corticosteroids (1 source) fluticasone Drug Allergy 9 Other: See Comments [facility] Work Phone: Mineral Oil / Petrolatum (1 source) Mineral Oil / Petrolatum Drug Allergy 4 Itching [facility] Work Phone: Sulfonamides (antibiotic) (3 sources) Sulfonamides (Antibiotic) Drug Allergy 6 Hives, Rash [facility] Unclassified (20 sources) Eye Lubricant Propensity to adverse reactions 4 [facility] (20 sources) DULoxetine Drug Allergy 1 Other: See Comments [facility] (20 sources) Etodolac Drug Allergy 6 [facility] (20 sources) fluticasone; Translations: [FLUTICASONE] Drug Allergy 9 Other: See Comments [facility] Work Phone: (8 sources) Salicylic Acid; Translations: [SALICYLATES] Drug Allergy 6 [facility] (20 sources) Sulfonamides (Antibiotic); Translations: [sulfa drugs] Propensity to adverse reactions 6 Hives, Rash [facility] (20 sources) genteal eye ointment [Other] Propensity to adverse reactions 2 Itching [facility] (8 sources) NSAIDS (Non-Steroidal Anti-Inflamma; Translations: [NSAIDS (Non-Steroidal Anti-Inflamma] Allergy to substance 9 Other [facility] (20 sources) Mineral Oil / Petrolatum; Translations: [ocular lubricant] Drug Allergy 4 Itching [facility] (20 sources) Salicylate product Propensity to adverse reactions 6 [facility] (5 sources) Sulfonamides (Antibiotic) Allergy to substance 1 Rash [facility] (5 sources) hypromellose; Translations: [hypromellose] Drug Allergy 3 Rednesss, watering, pain in eye [facility] Comment on above: Can use drops, just not the gel (4 sources) Salicylic Acid Drug Allergy 3 ringing in ears [facility] (9 sources) Etodolac Propensity to adverse reactions 4 [facility] (8 sources) Mirtazapine Drug Allergy 5 Other [facility] (1 source) fluticasone Drug Allergy 5 [facility] (1 source) Salicylic Acid Drug Allergy 5 [facility] (1 source) Sulfonamides (Antibiotic) Drug allergy (disorder) 5 [facility] (1 source) 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; Translations: [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] Propensity to adverse reactions to drug (disorder) 4 [facility] Medications Current Medications Medication Drug Class(es) Dates Sig (Normalized) Sig (Original) acetaminophen 325 mg / HYDROcodone bitartrate 5 mg oral tablet (4 sources) Opioid Agonist Start: 02-12-2024 End: 02-19-2024 take 1 tablet by mouth every six hours as needed for pain HYDROcodone-acetamin ophen ([place]) 5-325 MG tablet Indications: Dislocation of interphalangeal joint of right middle finger, subsequent encounter Take 1 tablet by mouth every 6 hours as needed for severe pain (7-10) for up to 7 days. 28 tablet 02/12/2024 02/19/2024 Active amoxicillin 500 mg oral capsule (4 sources) Penicillin-class Antibacterial Start: 02-23-2023 take 4 capsules by mouth once as needed Amoxicillin 500 mg capsule Active 2000 mg PO ONCE as needed February 23, 2023 12:00am Prior to dental visits Start: 02-23-2023 take 2000 mg by mouth once [place] xicillin Active 2000 MG PO ONCE February 23, 2023 12:00am Prior to dental visits aspirin 81 mg oral tablet (20 sources) Platelet Aggregation Inhibitor, Nonsteroidal Anti-inflammatory Drug Start: 02-26-2022 take 1 tablet by mouth twice daily at mealtime aspirin Dose : 81 mg = 1 tab(s), Oral, BIDM, Take 81 mg aspirin twice daily with food for 4 weeks postoperatively for DVT prophylaxis, 0 Refill(s) Start Date: 02/26/22 Status: Ordered Start: 02-10-2022 aspirin 81 mg oral delayed release tablet Dose : 81 mg = 1 tab(s), Oral, Daily, 0 Refill(s) Start Date: 02/10/22 Status: Ordered Start: 11-08-2018 take 1 tablet by carolyn th once daily Aspirin 81 mg tablet,chewable Active 81 mg PO DAILY November 08, 2018 12:00am Start: 11-20-2005 ASPIRIN 81 MG TAB Take one (1) tablet daily . 0 11/20/2005 Active Comment on above: Take one (1) tablet daily . Calcium Carbonate / vitamin D3 (20 sources) take 1 tablet by mouth once daily calcium carbonate/vitamin D3 (CALCIUM WITH VITAMIN D ORAL) Take 1 tablet by mouth once daily. Active take 1 tablet by mouth once juanita y calcium carbonate/vitamin D3 (CALCIUM WITH VITAMIN D ORAL) Take 1 tablet by mouth once daily. 0 Active Comment on above: Take 1 tablet by carolyn th once daily. calcium citrate 950 mg oral tablet (7 sources) Start: 11-08-2018 take 1 tablet by mouth once daily Calcium Citrate (Calcitrate) 200 mg (950 mg) tablet Active 200 mg PO DAILY November 08, 2018 12:00am calcium citrate 250 mg / cholecalciferol 100 unt oral tablet (20 sources) Vitamin D Calcium Citrate-Vitamin D 250-2.5 MG-MCG tablet Take by mouth daily. Active calcium-vitamin D 250 mg-12.5 mcg (500 intl units) oral tablet, chewable (3 sources) Start: 02-10-2022 take 1 tablet by mouth once daily in the morning calcium-vitamin D 250 mg-12.5 mcg (500 intl units) oral tablet, chewable Dose = 1 tab(s), Chewed, qAM, # 70 tab(s), 0 Refill(s) Start Date: 02/10/22 Status: Ordered Start: 02-10-2022 take 1 tablet by mouth once ca lcium-vitamin D 250 mg-12.5 mcg (500 intl units) oral tablet, chewable Dose = 2 tab(s), Chewed, BIDM, # 70 tab(s), 0 Refill(s) Start Date: 02/10/22 Status: Ordered cephalexin 500 mg oral capsule (12 sources) Cephalosporin Antibacterial Start: 06-28-2024 End: 07-05-2024 take 1 capsule by mouth twice daily cephALEXin (KEFLEX) 500 mg capsule Indications: Acute cystitis with hematuria Take 1 capsule by mouth two times a day for 7 days. 14 capsule 06/28/2024 07/05/2024 Active Start: 03-27-2022 End: 04-03-2022 take 1 capsule by mouth twice daily cephALEXin (KEFLEX) 500 mg capsule Take 1 capsule by mouth twice daily for 7 days. 14 capsule 0 03/27/2022 04/03/2022 Active Start: 01-27-2021 End: 02-11-2023 take 1 capsule by mouth every six hours Cephalexin 500 MG capsule Discontinued 500 mg PO EVERY 6 HOURS 12 0 January 27, 2021 12:00am February 11, 2023 10:55am Comment on above: Take 1 capsule by mo [facility] twice daily for 7 days. Chondroitin Sulfates / Glucosamine (3 sources) Start: 02-10-2022 Chondroitin-Glucosam ine 400 mg-500 mg oral capsule 0 Refill(s) Start Date: 02/10/22 Status: Ordered docusate sodium 50 mg / sennosides, long-term 8.6 mg oral tablet (1 source) Start: 02-26-2022 End: 02-28-2022 take 1 tablet by mouth twice daily Senokot S 50 mg-8.6 mg oral tablet Dose = 2 tab(s), Oral, BID, Take until first bowel movement, then as needed, # 20 tab(s), 0 Refill(s), Pharmacy: [id number], 156, cm, 02/25/22 11:21:00 EDT, Height Start Date: 02/26/22 Stop Date: 02/28/22 Status: Ordered doxycycline monohydrate 100 mg oral tablet (1 source) Tetracycline-clas s Drug Start: 01-17-2024 End: 01-22-2024 take 1 tablet by mouth twice daily doxycycline monohydrate 100 mg tablet Indications: URI, acute Take 1 tablet by mouth two times a day for 5 days. 10 tablet 0 01/17/2024 01/22/2024 Active GenTeal Tears Moderate (1 source) Start: 02-25-2022 GenTeal Tears Moderate Dose = 1 drop(s), Eye, right, BID, PRN as needed for dry eyes, 0 Refill(s) Start Date: 02/25/22 Status: Ordered GenTeal Tears Severe (1 source) Start: 02-25-2022 GenTeal Tears Severe Dose = 1 drop(s), Eye, left, BID, PRN Dry eyes, 0 Refill(s) Start Date: 02/25/22 Status: Ordered hypromellose 3 mg/ml ophthalmic solution (20 sources) Start: 02-10-2022 take 1 dose into the eye(s) twice daily as needed GenTeal ophthalmic solution Dose = 1 drop(s), Ophthalmic, BID, PRN for dry eyes, # 30 mL, 0 Refill(s) Start Date: 02/10/22 Status: Ordered Start: 11-09-2008 hypromellose(G ENTEAL MODERATE 0.3 % EYE DROPS) To left eye 0 0 11/09/2008 Active Comment on above: To left eye Ipratropium Spencer 42 mcg (0.06 %) spray,non-aerosol (2 sources) Start: 02-28-2025 Ipratropium Spencer 42 mcg (0.06 %) spray,non-aerosol Active 2 NMA INTRANASAL TWICE A DAY February 28, 2025 12:00am levothyroxine sodium 0.05 mg oral tablet (20 sources) l-Thyroxine Start: 02-23-2023 take 1 tablet by mouth six times weekly Levothyroxine 50 mcg tablet Active 50 ug PO 6 times per week February 23, 2023 2:44pm Start: 02-10-2022 levothyroxine 50 mcg (0.05 mg) oral tablet Dose : 50 mcg = 1 tab(s), Oral, Sun/Thu/Thu//Thu/Sat, 0 Refill(s) Start Date: 02/10/22 Status: Ordered Start: 11-08-2018 End: 04-19-2024 take 1 tablet by mouth once daily, then take 6 tablets by mouth every week levothyroxine (SYNTHROID) 50 mcg tablet Indications: Hypothyroidism, unspecified type Take 1 tablet by mouth once daily 6 out of 7 days per week. 90 tablet 3 04/19/2024 Active Comment on above: Take 1 tablet by carolyn th once daily 6 out of 7 days per week. losartan potassium 50 mg oral tablet (20 sources) Angiotensin 2 Receptor Colette Start: 1 End: 5 losartan (Cozaar) 50 MG tablet Take by mouth every morning. 07/24/2023 Active Comment on above: Take 1 tablet by carolyn once daily. omeprazole 20 mg delayed release oral capsule (20 sources) Proton Pump Inhibitor Start: 9 End: 4 take 1 tablet by mouth once daily omeprazole (PRILOSEC) 20 mg capsule Indications: Hiccups , GERD with esophagitis Take one tablet by mouth q day 90 capsule 3 04/19/2024 Active Comment on above: Take one tablet by m outh q day perflutren lipid microspheres 1.3 mL in NaCl (PF) 0.9% 10 mL injection (DEFINITY) (20 sources) Start: 3 End: 4 perflutren lipid microspheres 1.3 mL in NaCl (PF) 0.9% 10 mL injection (DEFINITY) polyethylene glycol 3350 [id number] mg powder for oral solution (20 sources) Osmotic Laxative Start: 3 Polyethylene Glycol 3350 (Laxative Peg 3350) 17 gram/dose powder Active 17 g PO DAILY 119 0 February 28, 2023 12:00am 4 capfuls with 24 oz of water/beverage on first day polyethylene gly col 3350 (MIRALAX) 17 gram/dose powder Take 17 g by mouth once daily. Dissolve dose in 4 - 8 ounces of liquid and take as directed. Active Comment on above: Take by mouth as nee ded for constipation. Dissolve dose in 4 - 8 ounces of liquid and take as directed. Take 17 g by mouth o nce daily. Dissolve dose in 4 - 8 ounces of liquid and take as directed. pregabalin 50 mg oral capsule (20 sources) Start: 09-14-2023 End: 06-13-2025 pregabalin (LYRICA) 50 mg capsule Indications: RLS (restless legs syndrome) 1 capsule at noon, bedtime, and midnight 270 capsule 1 03/13/2025 06/13/2025 Active Start: 02-20-2023 End: 08-19-2023 take 1 capsule by mouth three times daily pregabalin (LYRICA) 50 mg capsule Indications: RLS (restless legs syndrome) Take 1 capsule by mouth three times daily for 180 days. (As directed) 270 capsule 1 02/20/2023 08/19/2023 Active Start: 01-12-2023 End: 02-28-2025 take 1 capsule by mouth twice daily Pregabalin 50 mg capsule Discontinued 50 mg PO TWICE A DAY February 11, 2023 12:00am February 28, 2025 11:26am Start: 06-30-2022 End: 12-22-2022 take 1 capsule by mouth twice daily pregabalin (LYRICA) 50 mg capsule Indications: RLS (restless legs syndrome) Take 1 capsule by mouth twice daily for 90 days. 180 capsule 0 09/23/2022 10/31/2022 Discontinued Start: 04-17-2022 End: 07-16-2022 take 1 capsule by mouth twice daily pregabalin (LYRICA) 25 mg capsule Indications: RLS (restless legs syndrome) Take 1 capsule by mouth twice daily for 90 days. 60 capsule 2 04/17/2022 06/30/2022 Discontinued Start: 11-01-2021 End: 04-11-2022 pregabalin (LYRICA) 25 mg ca psule Indications: Restless legs syndrome , Dream enactment behavior , Tremor Take 1 capsule at noon and 1 capsule at midnight. 60 capsule 2 11/01/2021 04/11/2022 Discontinued Comment on above: Take 1 capsule at no on and 1 capsule at midnight. Take 1 capsule by mo ut twice daily for 90 days. Take 1 capsule by mo ut three times daily for 180 days. (As directed) Take 1 capsule by mo ut three times a day for 180 days. (As directed) rOPINIRole 0.5 mg oral tablet (20 sources) Nonergot Dopamine Agonist Start: 02-20-2023 End: 11-22-2024 rOPINIRole (Requip) 0.5 MG tablet Take by mouth 4 times daily. 02/20/2023 Active Start: 11-01-2021 End: 02-28-2025 take 1 tablet by mouth three times daily Ropinirole 0.5 mg tablet Discontinued 0.5 mg PO THREE TIMES A DAY February 11, 2023 12:00am February 28, 2025 11:26am Start: 11-01-2021 End: 06-30-2022 rOPINIRole (REQUIP) 0.5 mg t ablet Indications: Restless legs syndrome TAKE 1 TAB AT LUNCH, 1 AT DINNER, 1 AT BEDTIME, 1/2 AT MIDNIGHT NEEDED 360 tablet 1 11/01/2021 06/30/2022 Discontinued Start: 01-18-2021 End: 08-08-2021 rOPINIRole (REQUIP) 0.5 mg t ablet Indications: Restless legs syndrome TAKE 1 TAB AT LUNCH, 1 AT DINNER, 1 AT BEDTIME, 1 AT MIDNIGHT NEEDED 360 tablet 1 01/18/2021 08/08/2021 Discontinued Start: 11-08-2018 End: 02-11-2023 take 1 tablet by mouth at bedtime Ropinirole 0.25 mg tablet Discontinued 0.25 mg PO AT BEDTIME November 08, 2018 12:00am February 11, 2023 10:52am Comment on above: TAKE 1 TAB AT LUNCH, 1 AT DINNER, 1 AT BEDTIME, 1/2 AT MIDNIGHT NEEDED one tablet at noon a nd 4PM, 1 1/2 tablets at 8PM and 1/2 tablet at midnight. one tablet at noon a nd 4PM, 1 tablets at 8PM and 1 tablet at midnight. simvastatin 40 mg oral tablet (20 sources) HMG-CoA Reductase Inhibitor Start: End: 4 simvastatin (Zocor) 40 MG tablet Take by mouth Nightly. 07/24/2023 Active Comment on above: Take 1 tablet by carolyn th daily at bedtime. Turmeric extract (20 sources) Start: 3 take 1 capsule by mouth once daily Turmeric 400 mg capsule Active 400 mg PO DAILY February 11, 2023 12:00am Start: 02-11-2023 take 400 mg by mouth once juanita y Turmeric Active 400 MG PO DAILY February 11, 2023 12:00am Start: 02-10-2022 turmeric 1000 mg oral capsule Dose : 1,000 mg = 1 cap(s), Oral, BID, 0 Refill(s) Start Date: 02/10/22 Status: Ordered take 2 capsules by m outh once daily TURMERIC ORAL Take 2 capsules by mouth once daily. Active take 1 capsule by mouth once eric ly TURMERIC ORAL Take 1 capsule by mouth once daily. Active take 2 capsules by m outh once daily Turmeric (QC TUMERIC COMPLEX PO) Take 2 capsules by mouth daily. Active take 1 capsule by mouth once eric ly TURMERIC ORAL Take 1 capsule by mouth once daily. 0 Active End: 04-11-2022 turmeric (CURCUMIN MISC) turmeric (CURCUM IN MISC) Comment on above: Take 1 capsule by mo uth once daily. Vitamin D3 (3 sources) Start: 02-10-2022 Vitamin D3 Dos e : 100 mcg = 1 tab(s), Oral, Daily, # 90 tab(s), 0 Refill(s) Start Date: 02/10/22 Status: Ordered Completed/Discontinued Medications Medication Drug Class(es) Dates Sig (Normalized) Sig (Original) acetaminophen 500 mg oral tablet (20 sources) Start: 01-06-2025 End: 01-06-2025 1,000 mg, Oral, Once, On Thu01/06/25 at 0745, For 1 dose, Preprocedure, Administer 60 minutes prior to surgery. Start: 02-12-2024 End: 02-12-2024 1,000 mg, Oral, Once, On Thu02/12/24 at 1230, For 1 dose, Preprocedure, Administer 60 minutes prior to surgery. Start: 02-26-2022 take 1 tablet by carolyn once daily Tylenol Dose : 1,000 mg = 2 tab(s), Oral, TID, not to exceed 3000 mg/day, 0 Refill(s) Start Date: 02/26/22 Status: Ordered Start: 02-10-2022 Tylenol Extra Strength 500 mg oral tablet Dose : 500 mg = 1 tab(s), Oral, q4h, PRN as needed for fever, # 60 tab(s), 0 Refill(s) Start Date: 02/10/22 Status: Ordered calcium chloride 0.0014 meq/ml / potassium chloride 0.004 meq/ml / sodium chloride 0.103 meq/ml / sodium lactate 0.028 meq/ml injectable solution (4 sources) Start: 01-06-2025 End: 01-06-2025 take 50 mL intravenously every hour 50 mL/hr, IntraVENous, Continuous, Starting on Thu01/06/25 at 0745, Preprocedure, Upon admission to day - please start iv if patient does not have iv access. Use 500ml NS for patients on dialysis. Start: 02-12-2024 End: 02-12-2024 take 50 mL intravenously every hour 50 mL/hr, IntraVENous, Continuous, Starting on Thu02/12/24 at 1230, Preprocedure, Upon admission to - please start iv if patient does not have iv access. Use 500ml NS for patients on dialysis. cholecalciferol 0.025 mg oral capsule (20 sources) Vitamin D End: 07-23-2022 take 1 capsule by mouth once daily Cholecalciferol, Vitamin D3, 25 mcg (1,000 unit) cap Take 1,000 Units by mouth once daily. 07/23/2022 Discontinued Cholecalciferol, Vitamin D3, (VITAMIN D) 25 mcg (1,000 unit) cap Take 1,000 Units by mouth once daily. 0 Active Comment on above: Take 1,000 Units by mouth once daily. clonazePAM 0.5 mg oral tablet (20 sources) Benzodiazepine Start: 07-20-2023 End: 12-14-2023 clonazePAM (KLONOPIN) 0.5 mg tablet Indications: Dream enactment behavior , Restless legs syndrome , Tremor Take 1/4 tablet nightly 30 tablet 1 07/20/2023 12/14/2023 Discontinued Start: 02-11-2023 End: 02-23-2023 take 0.25 mg by mouth twice daily Clonazepam 0.5 mg tablet Discontinued 0.25 mg PO TWICE A DAY February 11, 2023 12:00am February 23, 2023 2:46pm Start: 02-11-2023 End: 02-23-2023 take 0.25 mg by mouth twice daily Clonazepam Discontinued 0.25 MG PO TWICE A DAY February 11, 2023 12:00am February 23, 2023 2:46pm Start: 11-01-2021 End: 02-20-2023 clonazePAM (KLONOPIN) 0.5 mg tablet Indications: Dream enactment behavior , Restless legs syndrome , Tremor Take 1/2 tab QHS and 1/2 tablet at midnight. 30 tablet 2 10/31/2022 02/20/2023 Discontinued Start: 01-18-2021 End: 05-27-2021 clonazePAM (KLONOPIN) 0.5 mg tablet Indications: Restless legs syndrome Take 1/2 to 1 tablet at midnight. 30 tablet 2 01/18/2021 05/27/2021 Discontinued Comment on above: TAKE 1/2 TO 1 TABLET AT MIDNIGHT Take 1/2 tab QHS. Take 1/2 tab QHS and 1/2 tablet at midnight. Take 1/4 tablet nigh tly dextran 70 1 mg/ml / hypromellose 3 mg/ml ophthalmic solution (7 sources) Plasma Volume Engineering Equipment Operator Start: 11-08-2018 End: 02-28-2025 Dextran 70-Hypromellose (Genteal Tears Mild) 0.1-0.3 % drops Discontinued NMA OPHTHALMIC 0 November 08, 2018 12:00am February 28, 2025 11:22am Start: 11-08-2018 Dextran 70-Hyp romellose (Genteal Tears Mild) 0.1-0.3 % drops Active DRP OPHTHALMIC November 08, 2018 12:00am dicyclomine hydrochloride 10 mg oral capsule (3 sources) Anticholinergic Start: 06-08-2023 End: 02-28-2025 take 1 capsule by mouth three times daily as needed for pain Dicyclomine 10 mg capsule Discontinued 10 mg PO THREE TIMES A DAY as needed for abdominal pain 20 0 June 08, 2023 6:12pm February 28, 2025 11:23am 1 ml diphenhydrAMINE hydrochloride 50 mg/ml cartridge (4 sources) Histamine-1 Receptor Antagonist Start: 01-06-2025 End: 01-06-2025 12.5 mg, IntraVENous, Once PRN, itching, Starting on Thu01/06/25 at 1031, For 1 dose, Recovery (only) Start: 02-12-2024 End: 02-12-2024 12.5 mg, IntraVENous, Once P RN, itching, Starting on Thu02/12/24 at 1546, For 1 dose, Recovery (only) gluc fernandez/chondro fernandez A/vit C/M n (GLUCOSAMINE 1500 COMPLEX ORAL) (16 sources) End: 04-11-2022 gluc fernandez/chondro fernandez A/vit C/M n (GLUCOSAMINE 1500 COMPLEX ORAL) Take by mouth. 0 04/11/2022 Discontinued gluc fernandez/chondro fernandez A/vit C/Mn (GLUCOSAMINE 1500 COMPLEX ORAL) Take by mouth. 0 Active Comment on above: Take by mouth. gluc/chondr-msm 7/C/huber/boron (GLUCOSAMINE-CHONDR , BOSWELLIA, ORAL) (5 sources) End: 07-23-2022 take 1 tablet by mouth once daily gluc/chondr-msm 7/C/huber/boron (GLUCOSAMINE-CHONDR, BOSWELLIA, ORAL) Take 1 tablet by mouth once daily. 0 07/23/2022 Discontinued take 1 tablet by mouth once juanita y gluc/chondr-msm 7/C/huber/boron (GLUCOSAMINE-CHONDR, BOSWELLIA, ORAL) Take 1 tablet by mouth once daily. 0 Active Comment on above: Take 1 tablet by carolyn once daily. 1 ml HYDROmorphone hydrochloride 1 mg/ml cartridge (8 sources) Opioid Agonist Start: 01-06-2025 End: 01-06-2025 0.5 mg, IntraVENous, Every 5 min PRN, severe pain (7-10), Starting on Thu01/06/25 at 1031, For 4 doses, Recovery (only), For Phase I. If Phase II oral narcotics have been administered in the last 60 minutes, do not administer IV narcotics unless specifically approved by provider. Start: 01-06-2025 End: 01-06-2025 0.25 mg, IntraVENous, Every 5 min PRN, moderate pain (4-6), Starting on Thu01/06/25 at 1031, For 4 doses, Recovery (only), For Phase I. If Phase II oral narcotics have been administered in the last 60 minutes, do not administer IV narcotics unless specifically approved by provider. Start: 02-12-2024 End: 02-12-2024 0.5 mg, IntraVENous, Every 5 min PRN, severe pain (7-10), Starting on Thu02/12/24 at 1546, For 4 doses, Recovery (only), For Phase I. If Phase II oral narcotics have been administered in the last 60 minutes, do not administer IV narcotics unless specifically approved by provider. Start: 02-12-2024 End: 02-12-2024 0.25 mg, IntraVENous, Every 5 min PRN, moderate pain (4-6), Starting on Thu02/12/24 at 1546, For 4 doses, Recovery (only), For Phase I. If Phase II oral narcotics have been administered in the last 60 minutes, do not administer IV narcotics unless specifically approved by provider. ipratropium bromide 0.021 mg/actuat metered dose nasal spray (20 sources) Anticholinergic Start: 02-11-2023 take 1 spray(s) nasal route twice daily Ipratropium Spencer Active 2 SPRAY INTRANASAL TWICE A DAY February 11, 2023 12:00am administer into each nostril Start: 02-10-2022 End: 02-28-2025 ipratropium (Atrovent) 0.03 % nasal spray Administer into affected nostril(s) 2 times daily as needed. 02/10/2022 Active Start: 02-10-2022 ipratropium 42 mcg/inh (0.06%) nasal spray Dose = 1 spray(s), Nasal, TID, PRN as needed for allergy symptoms, # 15 mL, 0 Refill(s) Start Date: 02/10/22 Status: Ordered IPRATROPIUM BROM GABRIEL NASAL Use 1 Leburn in the nose twice daily. Active IPRATROPIUM BROM GABRIEL NASAL Use 1 Leburn in the nose twice daily. 0 Active Comment on above: Use 1 Leburn in the n ose twice daily. labetalol (Normodyne,Trandate) injection 5 mg (4 sources) Start: 01-06-2025 End: 01-06-2025 labetalol (Normodyne,Trandate) injection 5 mg Start: 02-12-2024 End: 02-12-2024 labetalol (Normodyne,Trandat e) injection 5 mg 1 ml LORazepam 2 mg/ml injection (4 sources) Benzodiazepine Start: 01-06-2025 End: 01-06-2025 0.5 mg, IntraVENous, Once PRN, for anxiety or muscle spasm., Starting on Thu01/06/25 at 1031, For 1 dose, Recovery (only), For IV doses dilute dose with 1ml NS. Start: 02-12-2024 End: 02-12-2024 0.5 mg, IntraVENous, Once VT N, for anxiety or muscle spasm., Starting on Thu02/12/24 at 1546, For 1 dose, Recovery (only), For IV doses dilute dose with 1ml NS. melatonin 3 mg disintegrating oral tablet (20 sources) End: 01-06-2025 Melatonin 3 MG tablet dispersible Take by mouth daily at bedtime. 01/06/2025 Discontinued (Stop taking at discharge) Comment on above: Take by mouth daily at bedtime. metroNIDAZOLE 250 mg oral tablet (7 sources) Nitroimidazole Antimicrobial Start: 11-08-2018 End: 02-11-2023 take 1 tablet by mouth three times daily Metronidazole (Flagyl) 250 mg tablet Discontinued 250 mg PO THREE TIMES A DAY November 08, 2018 12:00am February 11, 2023 10:55am mirtazapine 7.5 mg oral tablet (8 sources) Start: 04-19-2024 End: 07-18-2024 take 1 tablet by mouth once daily at bedtime mirtazapine (REMERON) 7.5 mg tablet Indications: Chronic insomnia Take 1 tablet by mouth daily at bedtime. 30 tablet 2 04/19/2024 06/20/2024 Discontinued 2 ml ondansetron 2 mg/ml injection (4 sources) Serotonin-3 Receptor Antagonist Start: 01-06-2025 End: 01-06-2025 4 mg, IntraVENous, Once PRN, nausea, Starting on Thu01/06/25 at 1031, For 1 dose, Recovery (only), Initial antiemetic therapy. Start: 02-12-2024 End: 02-12-2024 4 mg, IntraVENous, Once PRN, nausea, Starting on Thu02/12/24 at 1546, For 1 dose, Recovery (only), Initial antiemetic therapy. ospemifene 60 mg oral tablet (7 sources) Start: 11-08-2018 End: 02-11-2023 take 1 tablet by mouth once daily at mealtime Ospemifene (Osphena) 60 mg tablet Discontinued 60 mg PO DAILY 30 November 08, 2018 12:00am February 11, 2023 10:55am must administer with food, preferably a high-fat meal oxyCODONE (6 sources) Opioid Agonist Start: 01-06-2025 End: 01-06-2025 take 1 tablet by mouth every four hours as needed for pain oxyCODONE (Roxicodone) immediate release tablet 5 mg Start: 02-12-2024 End: 02-12-2024 oxyCODONE (Roxicodone) immed iate release tablet 5 mg Start: 02-26-2022 End: 03-05-2022 take 1-2 tablets by mouth every four hours as needed for pain oxyCODONE 5 mg oral tablet ( IMMEDIATE release ) See Instructions, PRN as needed for pain, 1-2 tab(s) Oral q4h, # 42 tab(s), 0 Refill(s), 03/05/22 7:27:00 EDT, Pharmacy: [id number], Status post total right knee replacement, 156, cm, 02/25/22 11:21:00 EDT, Height, 46 Start Date: 02/26/22 Stop Date: 03/05/22 Status: Ordered Start: 02-25-2022 End: 02-26-2022 oxyCODONE 5 mg oral tablet ( IMMEDIATE release ) Start: 02/25/22 11:04:00 EDT, Dose = 5 mg, = 1 tab(s), Oral, q4h, PRN, Pain, scale 4-6, 02/25/22 11:04:00 EDT Notes: May administer less potent prescribed medication based on patient request per the organization s medication management policy. Start Date: 02/25/22 Stop Date: 02/26/22 Status: Discontinued 1000 ml sodium chloride 9 mg/ml injection (20 sources) Start: 01-06-2025 End: 01-06-2025 10 mL, IntraVENous, Every 12 hours scheduled (2 times per day), First dose on Thu01/06/25 at 0900, Preprocedure Start: 01-06-2025 End: 01-06-2025 500 mL, IntraVENous, at 1,00 0 mL/hr, Administer over 0.5 Hours, PRN, Anti-nausea, Starting on Thu01/06/25 at 1031, Recovery (only), Indications: Anti-nausea Start: 01-06-2025 End: 01-06-2025 take 10 mL intravenously once as needed 10 mL, IntraVENous, PRN, line care, Starting on Thu01/06/25 at 0742, Preprocedure, After every IV line use Start: 01-06-2025 End: 01-06-2025 take 5-40 mL intravenously every twelve hours 5-40 mL, IntraVENous, Every 12 hours, First dose on Thu01/06/25 at 0745, Preprocedure, For Line Patency: Peripheral IV = 5 mL; Midline or Central Line = 10 mL/lumen. If following IV push medication, administer flush at same rate as the IV push. Flush volume is determined by type of infusion therapy being given. For non-viscous solutions use: Peripheral IV = 5 mL Midline or Central Line = 10 mL/lumen For viscous solutions (i.e. blood components, parenteral nutrition, contrast media, or after obtaining blood sample) use: Peripheral IV = 10 mL Midline or Central Line = 20 mL/lumen Start: 02-12-2024 End: 02-12-2024 10 mL, IntraVENous, Every 12 hours scheduled (2 times per day), First dose on Thu02/12/24 at 2100, Preprocedure Start: 02-12-2024 End: 02-12-2024 10 mL, IntraVENous, Every 12 hours scheduled (2 times per day), First dose on Thu02/12/24 at 2100, Preprocedure Start: 02-12-2024 End: 02-12-2024 500 mL, IntraVENous, at 1,00 0 mL/hr, Administer over 0.5 Hours, PRN, Anti-nausea, Starting on Thu02/12/24 at 1546, Recovery (only), Indications: Anti-nausea Start: 02-12-2024 End: 02-12-2024 take 100 mL intravenously every hour as needed, then take 20 mL intravenously every hour as needed 5-250 mL/hr, IntraVENous, PRN, if patient receiving piggyback infusions and maintenance fluids are not ordered OR KVO fluids to protect IV site / prevent frequent line interruptions/ long duration, Starting on Thu02/12/24 at 1229, Preprocedure, For piggyback infusion, administer at same rate as piggyback for a total of 25 mL. Enter 25 mL into dose field and piggyback rate into rate field of order. If piggyback is infusing at a rate less than 100 mL/hr, enter 25 mL into dose field and 100 mL/hr into rate field of order. For KVO fluids, enter rate of 20 mL/hr or less into rate field of order. Start: 02-12-2024 End: 02-12-2024 take 10 mL intravenously once as needed 10 mL, IntraVENous, PRN, line care, Starting on Thu02/12/24 at 1229, Preprocedure, After every IV line use Start: 02-12-2024 End: 02-12-2024 take 5-40 mL intravenously every twelve hours 5-40 mL, IntraVENous, Every 12 hours, First dose on Thu02/12/24 at 1230, Preprocedure, For Line Patency: Peripheral IV = 5 mL; Midline or Central Line = 10 mL/lumen. If following IV push medication, administer flush at same rate as the IV push. Flush volume is determined by type of infusion therapy being given. For non-viscous solutions use: Peripheral IV = 5 mL Midline or Central Line = 10 mL/lumen For viscous solutions (i.e. blood components, parenteral nutrition, contrast media, or after obtaining blood sample) use: Peripheral IV = 10 mL Midline or Central Line = 20 mL/lumen Start: 01-23-2023 End: 01-24-2024 sodium chloride 0.9 % (flush ) 10 mL (BD POSIFLUSH) traMADol hydrochloride 50 mg oral tablet (6 sources) Opioid Agonist Start: 04-07-2022 End: 05-12-2022 take 50-100 mg by mouth every eight hours as needed traMADol (ULTRAM) 50 mg tablet Take 50-100 mg by mouth every 8 hours as needed. For Pain 0 04/07/2022 05/12/2022 Discontinued Comment on above: Take 50-100 mg by mo [facility] every 8 hours as needed. For Pain Problems Active Problems Problem Classification Problem Date Documented Da te Episodic/Chronic Abdominal hernia (1 source) Gastroesophageal reflux disease with hiatal hernia; Translations: [Diaphragmatic hernia without obstruction or gangrene] 04-07-2023 Episodic Cardiac dysrhythmias (7 sources) Palpitations; Translations: [Palpitations] 06-28-2019 Episodic Chronic kidney disease (20 sources) Anemia of chronic renal failure; Translations: [Chronic kidney disease, stage 2 (mild)] Onset: 6 Resolved: 3 06-05-2016 Chronic Diseases of white blood cells (5 sources) Leukopenia; Translations: [Decreased white blood cell count, unspecified] Onset: 5 Chronic Disorders of lipid metabolism (20 sources) Hyperlipidemia; Translations: [Hyperlipidemia, unspecified] Onset: 6 Resolved: 7 11-20-2005 Chronic E Codes: Fall (1 source) Fall; Translations: [Unspecified fall, initial encounter] 06-28-2024 Episodic Esophageal disorders (20 sources) Gastroesophageal reflux disease; Translations: [Gastro-esophageal reflux disease without esophagitis] Onset: 6 Resolved: 9 08-20-2018 Chronic Essential hypertension (20 sources) Benign essential hypertension; Translations: [Essential (primary) hypertension] Onset: 6 11-20-2005 Chronic Fluid and electrolyte disorders (1 source) Hyponatremia; Translations: [Hypo-osmolality and hyponatremia] Episodic Genitourinary symptoms and ill-defined conditions (5 sources) Increased frequency of urination; Translations: [Frequency of micturition] Episodic Headache; including migraine (1 source) Headache; Translations: [Headache, unspecified headache type] 03-23-2024 Episodic Heart valve disorders (20 sources) Non-rheumatic mitral regurgitation ; Translations: [Nonrheumatic mitral (valve) insufficiency] Onset: 3 02-11-2023 Chronic Heart valve disorders (2 sources) Heart murmur; Translations: [Cardiac murmur, unspecified] Episodic Immunity disorders (20 sources) Other autoinflammatory syndromes; 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] Onset: 3 Resolved: 4 Chronic Inflammation; infection of eye (except that caused by tuberculosis or sexually transmitteddisease) (7 sources) Keratitis; Translations: [Photokeratitis, unspecified eye] 10-14-2018 Episodic Intestinal obstruction without hernia (2 sources) Intestinal obstruction co-occurrent and due to decreased peristalsis; Translations: [Ileus, unspecified] 04-07-2023 Episodic Joint disorders and dislocations; trauma-related (20 sources) Dislocation of digit of hand; Translations: [Dislocation of proximal interphalangeal joint of unspecified finger, initial encounter] Onset: 5 02-08-2024 Episodic Miscellaneous mental health disorders (1 source) Chronic insomnia; Translations: [Psychophysiologic insomnia] 04-19-2024 Chronic Nonmalignant breast conditions (2 sources) Inversion of left nipple; Translations: [Other signs and symptoms in breast] Episodic Nonspecific chest pain (8 sources) Chest pain; Translations: [Chest pain, unspecified] Onset: 5 03-23-2024 Episodic Nutritional deficiencies (1 source) Vitamin D deficiency; Translations: [Vitamin D deficiency, unspecified] 12-14-2023 Chronic Osteoarthritis (20 sources) Arthritis; Translations: [Unspecified osteoarthritis, unspecified site] Onset: 2 08-19-2021 Chronic Osteoporosis (20 sources) Senile osteoporosis; Translations: [Age-related osteoporosis without current pathological fracture] Onset: 6 11-20-2005 Chronic Other aftercare (8 sources) Patient encounter status; Translations: [Encounter for therapeutic drug level monitoring] Episodic Other aftercare (1 source) Taking high risk medication; Translations: [Other nursing home (current) drug therapy] 03-13-2025 Episodic Other aftercare (1 source) Other dietetic aide (current) drug therapy; Translations: [High risk medication use] Onset: Episodic Other circulatory disease (1 source) Raynaud's phenomenon; Translations: [Raynaud's syndrome without gangrene] Chronic Other congenital anomalies (2 sources) Congenital abnormality of nipple; 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, unspecified] Chronic Other connective tissue disease (6 sources) History of orthopedic surgery; Translations: [Presence of other orthopedic joint implants] 02-17-2024 Chronic Other connective tissue disease (2 sources) Presence of other orthopedic joint implants; Translations: [Presence of other orthopedic joint implants] Onset: 4 Chronic Other connective tissue disease (1 source) Cramp in lower limb; Translations: [Cramp and spasm] Episodic Other connective tissue disease (1 source) Pain in right lower limb; Translations: [Pain in right leg] Episodic Other connective tissue disease (1 source) Bilateral spasm of muscle of calves; Translations: [Other muscle spasm] Episodic Other connective tissue disease (1 source) Muscle pain; Translations: [Myalgia, unspecified site] 03-23-2024 Episodic Other connective tissue disease (1 source) Pain in finger; Translations: [Pain in right finger(s)] 04-06-2024 Episodic Other connective tissue disease (2 sources) Pain in right hand; Translations: [Pain in right hand] Onset: 5 Episodic Other diseases of kidney and ureters (2 sources) Renal impairment; Translations: [Disorder of kidney and ureter, unspecified] Episodic Other female genital disorders (7 sources) Dyspareunia due to non-psychogenic cause in the female; Translations: [Other specified dyspareunia] 11-08-2018 Chronic Comment on above: side effects with va ginal estrogen. ordered osphena and pelvic floor physical therapy Other gastrointestinal disorders (1 source) Constipation; Translations: [Constipation, unspecified] 03-24-2023 Episodic Other gastrointestinal disorders (1 source) Acute constipation; Translations: [Constipation, unspecified] 06-23-2023 Episodic Other hereditary and degenerative nervous system conditions (20 sources) Restless legs; Translations: [Restless legs syndrome] Onset: 6 Chronic Other hereditary and degenerative nervous system conditions (20 sources) Essential tremor; Translations: [Essential tremor] Onset: 5 05-30-2015 Chronic Other hereditary and degenerative nervous system conditions (1 source) Restless legs syndrome; Translations: [RLS (restless legs syndrome)] Onset: 5 Chronic Other inflammatory condition of skin (20 sources) Psoriasis; Translations: [Other psoriasis] Onset: 2 03-03-2012 Chronic Other liver diseases (1 source) Steatosis of liver; Translations: [Fatty (change of) liver, not elsewhere classified] 04-07-2023 Chronic Other lower respiratory disease (3 sources) Hiccoughs; Translations: [Hiccough] Episodic Other nervous system disorders (8 sources) Tremor; Translations: [Tremor, unspecified] Episodic Other non-traumatic joint disorders (1 source) Hip pain; Translations: [Pain in unspecified hip] Episodic Other non-traumatic joint disorders (1 source) Pain in right knee; Translations: [Pain in joint, lower leg] 05-01-2021 Episodic Other skin disorders (7 sources) Lichen sclerosus et atrophicus; Translations: [Lichen sclerosus et atrophicus] 10-14-2018 Chronic Other upper respiratory infections (1 source) Acute upper respiratory infection; Translations: [Acute upper respiratory infection, unspecified] 01-17-2024 Episodic Yamile-; endo-; and myocarditis; cardiomyopathy (except that caused by tuberculosis or sexually transmitted disease) (1 source) Heart valve disorder; Translations: [Endocarditis, valve unspecified] Chronic Residual codes; unclassified (20 sources) Dream enactment behavior; Translations: [REM sleep behavior disorder] Onset: 4 Chronic Residual codes; unclassified (1 source) Periodic limb movement disorder; Translations: [Periodic limb movement disorder] 09-08-2024 Chronic Residual codes; unclassified (1 source) Periodic leg movements of sleep ; Translations: [Periodic limb movement disorder] 03-13-2025 Chronic Residual codes; unclassified (1 source) Periodic limb movement disorder; Translations: [PLMD (periodic limb movement disorder)] Onset: 5 Chronic Residual codes; unclassified (1 source) REM sleep behavior disorder; 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] Onset: 4 Chronic Residual codes; unclassified (2 sources) Insomnia; Translations: [Insomnia, unspecified] 09-08-2024 Episodic Thyroid disorders (20 sources) Hypothyroidism; Translations: [Hypothyroidism, unspecified] Onset: 6 06-05-2016 Chronic Unclassified (20 sources) Nodule of lung; Translations: [Lung nodule < 6cm on CT] Onset: 9 10-25-2020 Unclassified (1 source) Acute midline low back pain without sciatica; Translations: [Acute midline low back pain without sciatica] Onset: Past or Other Problems Problem Classification Problem Date Documented Date Episodic/Chronic Abdominal pain (20 sources) Right upper quadrant pain; Translations: [Right upper quadrant pain] Onset: 08-20-2018 Resolved: 03-23-2024 Episodic Administrative/social admission (20 sources) Advance directive discussed with patient; Translations: [Other specified counseling] Onset: 10-29-2021 Resolved: 09-23-2023 10-29-2021 Episodic Allergic reactions (20 sources) Perianal dermatitis; Translations: [Dermatitis, unspecified] Onset: 03-03-2012 Resolved: 05-12-2022 08-22-2013 Episodic Anal and rectal conditions (20 sources) Anal pain; Translations: [Other specified diseases of anus and rectum] Onset: 03-23-2013 Resolved: 04-20-2015 04-20-2015 Episodic Conditions associated with dizziness or vertigo (20 sources) Dizziness and giddiness; Translations: [Dizziness and giddiness] Onset: 02-11-2007 Resolved: 05-24-2007 05-24-2007 Episodic Diabetes mellitus without complication (20 sources) Prediabetes; Translations: [Prediabetes] Onset: 05-31-2019 05-31-2019 Episodic Immunizations and screening for infectious disease (1 source) Other specified abnormal immunological findings in serum; Translations: [Other specified abnormal immunological findings in serum] Onset: 07-25-2024 Episodic Other connective tissue disease (20 sources) Pain in limb; Translations: [Pain in unspecified limb] Onset: 06-01-2007 Resolved: 09-30-2016 09-30-2016 Episodic Other connective tissue disease (20 sources) Enthesopathy; Translations: [Enthesopathy, unspecified] Onset: 07-12-2007 Resolved: 04-19-2019 04-19-2019 Episodic Other connective tissue disease (20 sources) Triggering of digit; Translations: [Trigger finger, left middle finger] Onset: 09-22-2011 Resolved: 04-19-2019 04-19-2019 Episodic Other connective tissue disease (20 sources) Trigger thumb of right hand; Translations: [Trigger thumb, right thumb] Onset: 09-22-2011 Resolved: 04-19-2019 04-19-2019 Episodic Other connective tissue disease (2 sources) Pain in right finger(s); Translations: [Pain in right finger(s)] Onset: 04-11-2024 Episodic Other diseases of kidney and ureters (20 sources) Disorder of kidney and/or ureter; Translations: [Disorder of kidney and ureter, unspecified] Onset: 05-19-2006 Resolved: 05-12-2022 06-05-2016 Episodic Other disorders of stomach and duodenum (20 sources) Nonulcer dyspepsia; Translations: [Functional dyspepsia] Onset: 08-20-2018 08-20-2018 Episodic Other inflammatory condition of skin (20 sources) Psoriatic arthritis; Translations: [Arthropathic psoriasis, unspecified] Onset: 02-13-2011 Resolved: 05-12-2022 02-13-2011 Chronic Other inflammatory condition of skin (20 sources) Rosacea; Translations: [Rosacea, unspecified] Onset: 03-22-2014 Resolved: 05-12-2022 03-22-2014 Chronic Other inflammatory condition of skin (20 sources) Seborrheic psoriasis; Translations: [Other psoriasis] Onset: 03-03-2012 Resolved: 06-05-2017 06-05-2017 Chronic Other inflammatory condition of skin (20 sources) Perioral dermatitis; Translations: [Perioral dermatitis] Onset: 03-22-2014 Resolved: 03-31-2017 03-31-2017 Chronic Other inflammatory condition of skin (20 sources) Seborrheic dermatitis; Translations: [Other seborrheic dermatitis] Onset: 03-03-2012 Resolved: 04-20-2015 04-20-2015 Episodic Other lower respiratory disease (20 sources) Nodule of lung; Translations: [Solitary pulmonary nodule] Onset: 06-27-2019 10-25-2020 Episodic Other nervous system disorders (20 sources) Paresthesia; Translations: [Paresthesia of skin] Onset: 07-13-2007 Resolved: 06-05-2017 06-05-2017 Episodic Other nervous system disorders (1 source) Tremor, unspecified; Translations: [Tremor] Onset: 06-20-2024 Episodic Other nutritional; endocrine; and metabolic disorders (20 sources) Hypercalcemia; Translations: [Hypercalcemia] Onset: 05-19-2006 Resolved: 05-24-2007 05-24-2007 Chronic Other screening for suspected conditions (not mental disorders or infectious disease) (20 sources) Ultrasonography of abdomen abnormal; Translations: [Abnormal findings on diagnostic imaging of other abdominal regions, including retroperitoneum] Onset: 02-23-2023 Episodic Other skin disorders (20 sources) Seborrheic keratosis; Translations: [Other seborrheic keratosis] Onset: 07-06-2012 Resolved: 04-20-2015 10-14-2018 Episodic Other skin disorders (20 sources) Asteatosis cutis; Translations: [Xerosis cutis] Onset: 03-03-2012 Resolved: 04-20-2015 04-20-2015 Episodic Other skin disorders (20 sources) Inflamed seborrheic keratosis; Translations: [Inflamed seborrheic keratosis] Onset: 07-06-2012 Resolved: 04-20-2015 04-20-2015 Episodic Other skin disorders (20 sources) Milia; Translations: [Epidermal cyst] Onset: 07-06-2012 Resolved: 04-20-2015 04-20-2015 Episodic Other skin disorders (20 sources) Solar lentigo; Translations: [Other melanin hyperpigmentation] Onset: 07-06-2012 Resolved: 04-20-2015 04-20-2015 Episodic Other skin disorders (20 sources) Changes in skin texture; Translations: [Other skin changes] Onset: 03-22-2014 Resolved: 04-20-2015 04-20-2015 Episodic Residual codes; unclassified (1 source) Insomnia, unspecified; Translations: [Insomnia, unspecified type] Onset: 09-08-2024 Episodic Spondylosis; intervertebral disc disorders; other back problems (20 sources) Chronic thoracic back pain; Translations: [Pain in thoracic spine] Onset: 05-23-2022 Episodic Urinary tract infections (20 sources) Nongonococcal urethritis; Translations: [Nonspecific urethritis] Onset: 01-13-2006 Resolved: 05-12-2022 01-13-2006 Episodic Results Test Name Value Interpretation Reference Range Facility [facility] CHINYERE KRISHNA F ([id number]) 1935 F Date Time Provider Department 03/21/25 [facility] During your visit today, we recorded the following information about you: Veronika Nguyen, ERIK 03/21/2025 2:39 PM Signed Emili with [facility] calling regarding prescription received from Dr. Clark's office regarding medical doctor md for patient's RLS. Emili states she needs 2 things: 1) Needs Dr. Clark to add NPI number to script 2) Needs Dr. Clark to change the period of time for order to 24 months or less for Medicare requirements. Currently Lifetime is checked and this will not be covered. [facility] provider can send new script with these corrections. ERIK [place] Lori, LPN 03/21/2025 3:54 PM Signed This was faxed 03/17/25 but will resend again today. Yas Cooper LPN Allergies As of Date: 03/21/2025 Noted Allergy Reaction ASA (SALICYLATES) 11/20/2005 Comments: ringing in ears FLONASE (FLUTICASONE) 11/05/2018 14 - Other: See Comments Comments: gets jittery GENTEAL PM (WHITE PETROLATUM-MINE*09/14/2023 9 - Itching SULFA (SULFONAMIDE ANTIBIOTICS) 11/20/2005 4 - Hives Date Reviewed: 03/13/2025 Reviewed by: Jeffy Clark Jr., MD - Fully Assessed Reason for Visit: hopTo Call [Other] Prescriptions as of 03/21/2025 - pregabalin (LYRICA) 50 mg capsule 1 capsule at noon, bedtime, and midnight - losartan (COZAAR) 50 mg tablet Take 1 tablet by mouth once daily. - rOPINIRole (REQUIP) 0.5 mg tablet one tablet at noon and 4PM, 1 tablets at 8PM and 1 tablet at midnight. - levothyroxine (SYNTHROID) 50 mcg tablet Take 1 tablet by mouth once daily 6 out of 7 days per week. - omeprazole (PRILOSEC) 20 mg capsule Take one tablet by mouth q day - simvastatin (ZOCOR) 40 mg tablet Take 1 tablet by mouth daily at bedtime. - polyethylene glycol 3350 (MIRALAX) 17 gram/dose powder Take 17 g by mouth once daily. Dissolve dose in 4 - 8 ounces of liquid and take as directed. - TURMERIC ORAL Take 2 capsules by mouth once daily. - calcium carbonate/vitamin D3 (CALCIUM WITH VITAMIN D ORAL) Take 1 tablet by mouth once daily. - IPRATROPIUM BROMIDE NASAL Use 1 Leburn in the nose twice daily. - hypromellose(GENTEAL MODERATE 0.3 % EYE DROPS) To left eye - ASPIRIN 81 MG TAB Take one (1) tablet daily . Problem List As Of Date 03/21/2025 Noted Resolved OSTEOPOROSIS POSTMENOPAUSAL [M81.0] 11/20/2005 Hypothyroidism [E03.9] 11/20/2005 BENIGN HYPERTENSION [I10] 11/20/2005 Restless legs syndrome [G25.81] 11/20/2005 Hyperlipidemia [E78.5] 11/20/2005 Esophageal reflux [K21.9] 11/20/2005 04/19/2019 URETHRITIS OTHER SPECIFIED [N34.1] 01/13/2006 05/12/2022 HYPERCALCEMIA [E83.52] 05/19/2006 05/24/2007 Anemia of chronic renal failure, stage 2 (mild)*05/19/2006 01/23/2023 Disorder of kidney and ureter [N28.9] 05/19/2006 05/12/2022 DIZZINESS AND GIDDINESS [R42] 02/11/2007 05/24/2007 Pain in limb [M79.609] 06/01/2007 09/30/2016 Enthesopathy of unspecified site [M77.9] 07/12/2007 04/19/2019 Paresthesia of skin [R20.2] 07/13/2007 06/05/2017 Stage 3 chronic kidney disease (HCC) [N18.30] 03/20/2009 Psoriatic arthritis (HCC) [L40.50] 02/13/2011 05/12/2022 Arthritis [M19.90] Trigger middle finger of left hand [M65.332] 09/22/2011 04/19/2019 Trigger index finger of right hand [M65.321] 09/22/2011 04/19/2019 Trigger thumb of right hand [M65.311] 09/22/2011 04/19/2019 Other psoriasis [L40.8] 03/03/2012 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] 03/03/2012 06/05/2017 Other seborrheic dermatitis [L21.8] 03/03/2012 04/20/2015 Xerosis cutis [L85.3] 03/03/2012 04/20/2015 Actinic skin damage [L57.8] 03/03/2012 04/20/2015 Trigger little finger of left hand [M65.352] 05/03/2012 04/19/2019 Trigger middle finger of right hand [M65.331] 05/31/2012 04/19/2019 Trigger ring finger of right hand [M65.341] 05/31/2012 04/19/2019 Irritated//Inflamed Seborrheic Keratosis [L82.0]07/06/2012 04/20/2015 Milial cyst [L72.0] 07/06/2012 04/20/2015 Other seborrheic keratosis [L82.1] 07/06/2012 04/20/2015 Solar lentigo [L81.4] 07/06/2012 04/20/2015 Milia [L72.0] 07/06/2012 04/20/2015 Anal burning [K62.89] 03/23/2013 04/20/2015 Perianal dermatitis [L30.9] 08/22/2013 05/12/2022 Perioral dermatitis [L71.0] 03/22/2014 03/31/2017 Acne rosacea [L71.9] 03/22/2014 05/12/2022 Postinflammatory skin changes [R23.8] 03/22/2014 04/20/2015 Trigger ring finger of left hand [M65.342] 06/05/2014 04/19/2019 Essential tremor [G25.0] 05/30/2015 Hyperlipidemia [E78.5] 10/19/2015 03/31/2017 Gastroesophageal reflux disease [K21.9] 08/20/2018 10/07/2018 Functional dyspepsia [K30] 08/20/2018 Epigastric pain [R10.13] 08/20/2018 04/19/2019 GERD (gastroesophageal reflux disease) [K21.9] 08/20/2018 Prediabetes [R73.03] 05/31/2019 Lung nodule < 6cm on CT [[id number]] 06/27/2019 Counseling regarding advanced dire (more content not included)... Normal [facility] CNOVon 03-13-2025 CNOV Office Visit (SLEWST ) CHINYERE KRISHNA ([id number]) 1935 F Date Time Provider Department 03/13/25 9:20 AM JEFFY CLARK JR During your visit today, we recorded the following information about you: Pulse Respiration Blood pressure Weight 60/minute 16/minute 121/66 49 kg Jeffy Clark Jr., MD 03/13/2025 10:57 AM Signed ESTABLISHED PATIENT VISIT CHIEF COMPLAINT: Follow Up HISTORY OF PRESENT ILLNESS: Chinyere Alberts is a 89 year old female, BMI 20.41 kg/m2 with a PMH significant for and per last office visit of 09/08/24: Rls (restless legs syndrome) (primary encounter diagnosis) Plmd (periodic limb movement disorder) Dream enactment behavior Insomnia, unspecified type Chinyere Alberts is a delightful 89 year old female with RLS, PLMD, dream enactment behavior, sleep maintenance insomnia She is pleased with current regimen of medication for RLS/PLMD; says sxs are the best they have ever been despite having some sxs intermittently during the day or in the middle of the night. She is frustrated when she awakes at 330-4 AM and can't fall back asleep; she routinely gets out of bed at 5 AM. No issues with KIMBERLEE. PLAN: Try getting out of bed if can't sleep eg at 330 AM, do something boring until drowsy again, then back to bed, retrain brain this way Continue pregabalin 50 mg at noon, HS, and MN Continue ropinirole 0.5 mg at noon, 430 pm, 830 pm and MN when she awakes in the night Has never used topicals for RLS; can try Theraworx relief for muscle cramps roll on or foam Iron stores are always normal; last checked 11/2023 Renal function has been stable She will let me know when she needs refills of meds Reports no new medical conditions. No new meds. Walking 2 miles every day. Patient feels the RLS is pretty well controlled. Occaionally has some jerking prior to falling asleep but does not last long. Also can occur while asleep and wake patient up. Taking Lyrica 50mg at noon, HS, and MN. Ropinirole also unchanged as above. Symptoms occur on average about once per week. Iron levels have been unremarkable. Denies any dream enactment since last visit with Reyes Elizondo CNP. Still can have nasty dreams. Patient brings in journal. Scary dream about one night per month, and jerking about 4-5 nights per month. That said, no symptoms in the month of January. Currently waking 2-4 times per night due to symptoms, despite medications. REVIEW OF SYSTEMS GENERAL:No weight loss, malaise or fevers. HEENT:Negative for frequent or significant headaches, No changes in hearing or vision, no nose bleeds or other nasal problems NECK:Negative for lumps, goiter, pain and significant neck swelling RESPIRATORY: Negative for cough, wheezing or shortness of breath. CARDIOVASCULAR: Few episodes of CP - pt's PCP aware and is going to have a stress test in 1-2 weeks. Following with cardiology. GASTROINTESTINAL: Negative for abdominal discomfort, blood in stools or black stools or change in bowel habits GENITOURINARY: No history of dysuria, frequency or incontinence MUSCULOSKELETAL: See HPI. NEUROLOGIC:Negative for focal numbness or weakness, headaches and dizziness or syncope, vision changes, speech/languag changes - EXCEPT that as per HPI above. SKIN:Negative for lesions, rash, and itching. LAB/IMAGING: Those performed since patient's last visit have been reviewed. WBC (k/uL) Date Value 11/11/2024 5.34 RBC (m/uL) Date Value 11/11/2024 4.31 Hemoglobin (g/dL) Date Value 11/11/2024 13.1 Hematocrit (%) Date Value 11/11/2024 39.6 MCV (fL) Date Value 11/11/2024 91.9 MCH (pg) Date Value 11/11/2024 30.4 MCHC (g/dL) Date Value 11/11/2024 33.1 RDW-CV (%) Date Value 11/11/2024 12.3 Platelet Count (k/uL) Date Value 11/11/2024 151 MPV (fL) Date Value 11/11/2024 10.1 Glucose (mg/dL) Date Value 10/24/2024 90 BUN (mg/dL) Date Value 10/24/2024 19 Creatinine (mg/dL) Date Value 10/24/2024 0.98 (H) Sodium (mmol/L) Date Value 10/24/2024 136 Potassium (mmol/L) Date Value 10/24/2024 4.1 Chloride (mmol/L) Date Value 10/24/2024 98 CO2 (mmol/L) Date Value 10/24/2024 30 Protein, Total (g/dL) Date Value 10/24/2024 6.4 Albumin (g/dL) Date Value 10/24/2024 4.0 Calcium, Total (mg/dL) Date Value 10/24/2024 9.9 Alkaline Phosphatase (U/L) Date Value 10/24/2024 85 Bilirubin, Total (mg/dL) Date Value 10/24/2024 0.4 AST (U/L) Date Value 10/24/2024 16 ALT (U/L) Date Value 10/24/2024 12 Hep C Antibody IA (no units) Date Value 05/01/2011 Negative MEDICATIONS: losartan (COZAAR) 50 mg tablet Take 1 tablet by mouth once daily. rOPINIRole (REQUIP) 0.5 mg tablet one tablet at noon and 4PM, 1 tablets at 8PM and 1 tablet at midnight. levothyroxine (SYNTHROID) 50 mcg tablet Take 1 tablet by mouth once daily 6 out (more content not included)... [facility] (HELDER) CHINYERE KRISHNA ([id number]) 1935 F Date Time Provider Department 03/13/25 JEFFY CLARK JR During your visit today, we recorded the following information about you: Yas Cooper LPN 03/13/2025 2:34 PM Signed Nidra application completed and faxed with required documentation. Yas Cooper LPN Allergies As of Date: 03/13/2025 Noted Allergy Reaction ASA (SALICYLATES) 11/20/2005 Comments: ringing in ears FLONASE (FLUTICASONE) 11/05/2018 14 - Other: See Comments Comments: gets jittery GENTEAL PM (WHITE PETROLATUM-MINE*09/14/2023 9 - Itching SULFA (SULFONAMIDE ANTIBIOTICS) 11/20/2005 4 - Hives Date Reviewed: 03/13/2025 Reviewed by: Jeffy Clark Jr., MD - Fully Assessed Reason for Visit: Orders [681] Cmt: Nidra Prescriptions as of 03/13/2025 - pregabalin (LYRICA) 50 mg capsule 1 capsule at noon, bedtime, and midnight - losartan (COZAAR) 50 mg tablet Take 1 tablet by mouth once daily. - rOPINIRole (REQUIP) 0.5 mg tablet one tablet at noon and 4PM, 1 tablets at 8PM and 1 tablet at midnight. - levothyroxine (SYNTHROID) 50 mcg tablet Take 1 tablet by mouth once daily 6 out of 7 days per week. - omeprazole (PRILOSEC) 20 mg capsule Take one tablet by mouth q day - simvastatin (ZOCOR) 40 mg tablet Take 1 tablet by mouth daily at bedtime. - polyethylene glycol 3350 (MIRALAX) 17 gram/dose powder Take 17 g by mouth once daily. Dissolve dose in 4 - 8 ounces of liquid and take as directed. - TURMERIC ORAL Take 2 capsules by mouth once daily. - calcium carbonate/vitamin D3 (CALCIUM WITH VITAMIN D ORAL) Take 1 tablet by mouth once daily. - IPRATROPIUM BROMIDE NASAL Use 1 Leburn in the nose twice daily. - hypromellose(GENTEAL MODERATE 0.3 % EYE DROPS) To left eye - ASPIRIN 81 MG TAB Take one (1) tablet daily . Problem List As Of Date 03/13/2025 Noted Resolved OSTEOPOROSIS POSTMENOPAUSAL [M81.0] 11/20/2005 Hypothyroidism [E03.9] 11/20/2005 BENIGN HYPERTENSION [I10] 11/20/2005 Restless legs syndrome [G25.81] 11/20/2005 Hyperlipidemia [E78.5] 11/20/2005 Esophageal reflux [K21.9] 11/20/2005 04/19/2019 URETHRITIS OTHER SPECIFIED [N34.1] 01/13/2006 05/12/2022 HYPERCALCEMIA [E83.52] 05/19/2006 05/24/2007 Anemia of chronic renal failure, stage 2 (mild)*05/19/2006 01/23/2023 Disorder of kidney and ureter [N28.9] 05/19/2006 05/12/2022 DIZZINESS AND GIDDINESS [R42] 02/11/2007 05/24/2007 Pain in limb [M79.609] 06/01/2007 09/30/2016 Enthesopathy of unspecified site [M77.9] 07/12/2007 04/19/2019 Paresthesia of skin [R20.2] 07/13/2007 06/05/2017 Stage 3 chronic kidney disease (HCC) [N18.30] 03/20/2009 Psoriatic arthritis (HCC) [L40.50] 02/13/2011 05/12/2022 Arthritis [M19.90] Trigger middle finger of left hand [M65.332] 09/22/2011 04/19/2019 Trigger index finger of right hand [M65.321] 09/22/2011 04/19/2019 Trigger thumb of right hand [M65.311] 09/22/2011 04/19/2019 Other psoriasis [L40.8] 03/03/2012 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] 03/03/2012 06/05/2017 Other seborrheic dermatitis [L21.8] 03/03/2012 04/20/2015 Xerosis cutis [L85.3] 03/03/2012 04/20/2015 Actinic skin damage [L57.8] 03/03/2012 04/20/2015 Trigger little finger of left hand [M65.352] 05/03/2012 04/19/2019 Trigger middle finger of right hand [M65.331] 05/31/2012 04/19/2019 Trigger ring finger of right hand [M65.341] 05/31/2012 04/19/2019 Irritated//Inflamed Seborrheic Keratosis [L82.0]07/06/2012 04/20/2015 Milial cyst [L72.0] 07/06/2012 04/20/2015 Other seborrheic keratosis [L82.1] 07/06/2012 04/20/2015 Solar lentigo [L81.4] 07/06/2012 04/20/2015 Milia [L72.0] 07/06/2012 04/20/2015 Anal burning [K62.89] 03/23/2013 04/20/2015 Perianal dermatitis [L30.9] 08/22/2013 05/12/2022 Perioral dermatitis [L71.0] 03/22/2014 03/31/2017 Acne rosacea [L71.9] 03/22/2014 05/12/2022 Postinflammatory skin changes [R23.8] 03/22/2014 04/20/2015 Trigger ring finger of left hand [M65.342] 06/05/2014 04/19/2019 Essential tremor [G25.0] 05/30/2015 Hyperlipidemia [E78.5] 10/19/2015 03/31/2017 Gastroesophageal reflux disease [K21.9] 08/20/2018 10/07/2018 Functional dyspepsia [K30] 08/20/2018 Epigastric pain [R10.13] 08/20/2018 04/19/2019 GERD (gastroesophageal reflux disease) [K21.9] 08/20/2018 Prediabetes [R73.03] 05/31/2019 Lung nodule < 6cm on CT [[id number]] 06/27/2019 Counseling regarding advanced directives and go*10/29/2021 09/23/2023 Chronic left-sided thoracic back pain [M54.6, G*05/23/2022 Nonrheumatic mitral valve regurgitation [I34.0] 02/28/2023 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 Normal [facility] Anion gap in Serum or Plasma Ordered By: Eneida Arroyo on 02-28-2025 Anion gap [Moles/Vol] 11 mmol/L 5-15 [facility] BUN/creatinine ratioOrdered By: Eneida Arroyo on 02-28-2025 Urea nitrogen/Creatinine [Mass ratio] 23.6 mg/mg High 10-20 [facility] Bilirubin, totalOrdered By: Eneida Arroyo on 02-28-2025 Bilirubin [Mass/Vol] 0.30 mg/dL 0.00-1.30 [facility] CBC-Complete Blood Cnt No Di ffon 02-28-2025 Erythrocyte distribution width (RBC) [Ratio] 12.3 % Normal 11.6-14.6 [facility] Comment on above: Performed By: #### L 100.0500, L500.4050, L500.4100 ####[facility] [address] [place], [address] Hematocrit (Bld) [Volume fraction] 41.7 % Normal 37-47 [facility] Comment on above: Performed By: #### L 100.0500, L500.4050, L500.4100 ####[facility] [address] [place], [address] Hemoglobin (Bld) [Mass/Vol] 13.6 g/dL Normal 12.0-15.0 [facility] Comment on above: Performed By: #### L 100.0500, L500.4050, L500.4100 ####[facility] [address] [place], [address] MCH (RBC) [Entitic mass] 30.2 pg Normal 27.0-32.0 [facility] Comment on above: Performed By: #### L 100.0500, L500.4050, L500.4100 ####[facility] [address] [place], [address] MCHC (RBC) [Mass/Vol] 32.6 g/dL Normal 32-36 [facility] Comment on above: Performed By: #### L 100.0500, L500.4050, L500.4100 ####[facility] [address] [place], [address] MCV (RBC) [Entitic vol] 92.7 fL Normal 81-99 [facility] Comment on above: Performed By: #### L 100.0500, L500.4050, L500.4100 ####[facility] [address] [place], [address] Platelet mean volume (Bld) [Entitic vol] 10.4 fL Normal 6.2-12.0 [facility] Comment on above: Performed By: #### L 100.0500, L500.4050, L500.4100 ####[facility] [address] [place], [address] Platelets (Bld) [#/Vol] 184 10*3/uL Normal 150-450 [facility] Comment on above: Performed By: #### L 100.0500, L500.4050, L500.4100 ####[facility] [address] [place], [address] RBC (Bld) [#/Vol] 4.50 10*6/uL Normal 4.2-5.4 [facility] Comment on above: Performed By: #### L 100.0500, L500.4050, L500.4100 ####[facility] [address] [place], [address] RDW SD 42.1 fl Normal 35.1-43.9 [facility] Comment on above: Performed By: #### L 100.0500, L500.4050, L500.4100 ####[facility] [address] [place], [address] WBC (Bld) [#/Vol] 4.8 10*3/uL Normal 4.4-11.0 [facility] Comment on above: Performed By: #### L 100.0500, L500.4050, L500.4100 ####[facility] [address] [place], [address] Calculated very low density lipoprotein (VLDL) cholesterol measurementOrdered By: Eneida Arroyo on 02-28-2025 Calculated very low density lipoprotein (VLDL) cholesterol measurement 19 mg/dL 5-40 [facility] Carbon dioxide, total [Moles /volume] in Central venous bloodOrdered By: Eneida Arroyo on 02-28-2025 CO2 [Moles/Vol] 25.9 mmol/L 21.0-32.0 [facility] Cardiology Visit Reporton Cardiology Visit Report [facility] [address] [place] [address] OFFICE VISIT Date of Service: 02/28/25 MR#: [id number] Acct: [id number] Name: CHINYERE KRISHNA Rep #: [id number] : 1935 Provider: OSIRIS Lugo Age/Sex: 89/F [place] [facility] Status: Signed HPI HPI History of Present Illness Details: Chinyere Alberts is an 89 year old female with moderate mitral valve regurgitation. Echocardiogram in January 2023 demonstrated an ejection fraction of 72% ???5, stage I diastolic dysfunction, moderate 2+ mitral regurgitation and mild 1+ aortic regurgitation. She does have chest pain, it is stabbing. She does not have this with activity, she walks 2 miles a day and does body exercises without problems. She does have this pain at rest. She does have some irregular heart beats and some SOB with exertion. Intake Vital Signs 03/01/24 10:53 02/28/25 11:18 02/28/25 11:31 02/28/25 11:41 Height 5 ft 2 in 5 ft 2 in Weight: 109 lb BMI 19.9 BP 192/72 H 192/69 H 150/50 H Blood Pressure Location Lt brachial Rt brachial Position Sitting Sitting Respiration 16 16 Pulse 69 65 Pulse Source NIBP NIBP Intake Visit Reasons: 1 Y FU [employer] Mitigation Officer Required: No Is patient in pain?: No Allergies hypromellose (From GenTeal (hypromellose)) Allergy (Severe, Verified 02/28/25 11:22) Rednesss, watering, pain in eye NSAIDS (Non-Steroidal Anti-Inflamma Allergy (Mild, Verified 02/28/25 11:22) Other Sulfa (Sulfonamide Antibiotics) Allergy (Verified 02/28/25 11:22) Rash fluticasone (From Flonase) Adverse Reaction (Unknown, Verified 02/28/25 11:22) jittery salicylates Adverse Reaction (Unknown, Verified 02/28/25 11:22) ringing in ears Medications ???Medication ???Instructions ???Recorded ???Confirmed ???Type aspirin 81 mg chewable tablet 81 mg PO DAILY 11/08/18 02/28/25 H istory calcium citrate (Calcitrate) 200 mg PO DAILY 11/08/18 02/28/25 History omeprazole 20 mg capsule,delayed 20 mg PO DAILY 11/08/18 02/28/25 H istory release simvastatin 40 mg tablet 40 mg PO QHS 11/08/18 02/28/25 His tory losartan 50 mg tablet 50 mg PO DAILY 01/27/21 02/28/25 H istory turmeric 400 mg capsule 400 mg PO DAILY 02/11/23 02/28/25 History amoxicillin 500 mg capsule 2,000 mg PO ONCE PRN 02/23/2304/17 History levothyroxine 50 mcg tablet 50 mcg PO 6XW 02/23/23 02/28/25 Hi story polyethylene glycol 3350 17 17 g PO DAILY #119 grams 02/28/23 02/28/25 Rx gram/dose oral powder (Laxative PEG 3350) ipratropium bromide 42 mcg (0.06 2 spray intranasal BID 02/28/25 History %) nasal spray pregabalin 50 mg capsule 50 mg PO TID 02/28/25 02/28/25 His tory ropinirole 0.5 mg tablet 0.5 mg PO 4X/DAY 02/28/25 02/28/25 History Ejection fraction %: 70 Have you fallen in the past year?: Yes PFSH Medical History Hiatal hernia Non-rheumatic mitral regurgitation Hypothyroidism CKD (chronic kidney disease) stage 3, GFR 30-59 ml/min Abnormal echocardiogram Mixed hyperlipidemia Essential hypertension Urinary tract infection Dyspareunia due to medical condition in female GERD (gastroesophageal reflux disease) Rosacea Seborrheic keratosis Psoriasis Actinic keratitis Surgical History History of hand surgery History of right knee joint replacement ( 2021) History of appendectomy S/P DHIRAJ (total abdominal hysterectomy) Family History Mother Myocardial infarction, Onset Age: 70 Social History Smoking Status: Never smoker alcohol intake: never substance use type: does not use caffeine: No what type of physical activity do you participate in: walking seatbelt use: always do you feel safe at home: Yes additional social history: [employer]- Retired ROS Const Const: Negative for fatigue or weakness Eyes Eyes: Negative for change in vision ENT ENT: Negative for dizziness or balance problems Cardio Chest Pain: Yes Frequency: weekly (Several days per week) Character: other (stabbing pain) Onset: at rest Location: left chest Duration: brief Palpitations: Yes (Infrequently) feels like its: fast Edema: Bilateral (Mild intermittently) Resp Respiratory: Positive for SOB with activity (Only when walking uphill); Negative for SOB at rest or SOB orthopnea SOB lying down GI GI: Negative nausea or heartburn Musc Musc: Negative for balance problems Neuro Neuro: Negative for dizziness, lightheadedness, near syncope, syncope or weakness Endo Endo: Negative for fatigue Cardiology Exam Const Appearance: cooperative, healthy appearing, comfortable, no acute (more content not included)... Normal [facility] Chloride assayOrdered By: Denisa Arroyo on 02-28-2025 Chloride [Moles/Vol] 103 mmol/L 98-108 [facility] Comprehensive Metabolic Prof ilon 02-28-2025 Albumin [Mass/Vol] 4.4 g/dL Normal 3.4-4.8 [facility] Comment on above: Performed By: #### L 100.0500, L500.4050, L500.4100 ####[facility] [address] [place], [address] Albumin/Globulin [Mass ratio] 1.8 {ratio} Normal 0.9-2.4 [facility] Comment on above: Performed By: #### L 100.0500, L500.4050, L500.4100 ####[facility] [address] [place], [address] ALK PHOS 82 U/L Normal 35-104 [facility] Comment on above: Performed By: #### L 100.0500, L500.4050, L500.4100 ####[facility] [address] [place], [address] ALT [Catalytic activity/Vol] 17 U/L Normal <=34 [facility] Comment on above: Performed By: #### L 100.0500, L500.4050, L500.4100 ####[facility] [address] [place], [address] AST [Catalytic activity/Vol] 27 U/L Normal <=31 [facility] Comment on above: Performed By: #### L 100.0500, L500.4050, L500.4100 ####[facility] [address] [place], [address] Bilirubin [Mass/Vol] 0.30 mg/dL Normal 0.00-1.30 [facility] Comment on above: Performed By: #### L 100.0500, L500.4050, L500.4100 ####[facility] [address] [place], [address] BUN/CRE 23.6 RATIO High 10-20 [facility] Comment on above: Performed By: #### L 100.0500, L500.4050, L500.4100 ####[facility] [address] [place], [address] Calcium [Mass/Vol] 10.1 mg/dL Normal 7.6-11.0 [facility] Comment on above: Performed By: #### L 100.0500, L500.4050, L500.4100 ####[facility] [address] [place], [address] Chloride [Moles/Vol] 103 mmol/L Normal 98-108 [facility] Comment on above: Performed By: #### L 100.0500, L500.4050, L500.4100 ####[facility] [address] [place], [address] CO2 [Moles/Vol] 25.9 mmol/L Normal 21.0-32.0 [facility] Comment on above: Performed By: #### L 100.0500, L500.4050, L500.4100 ####[facility] [address] [place], [address] Creatinine [Mass/Vol] 1.07 mg/dL Normal 0.70-1.20 [facility] Comment on above: Performed By: #### L 100.0500, L500.4050, L500.4100 ####[facility] [address] [place], [address] GAP 11 Normal 5-15 [facility] Comment on above: Performed By: #### L 100.0500, L500.4050, L500.4100 ####[facility] [address] [place], [address] GFR/1.73 sq M.predicted among non-blacks MDRD (S/P/Bld) [Vol rate/Area] 50 mL/min/{1.73_m2} Low >60 [facility] Comment on above: Result Comment: mL/m in/1.73m2 CKD-EPI Creatinine Equation (2020) Performed By: #### L 100.0500, L500.4050, L500.4100 ####[facility] [address] [place], [address] Globulin (S) [Mass/Vol] 2.5 g/dL Normal 2.2-4.2 [facility] Comment on above: Performed By: #### L 100.0500, L500.4050, L500.4100 ####[facility] [address] [place], [address] Glucose [Mass/Vol] 96 mg/dL Normal 70-99 [facility] Comment on above: Performed By: #### L 100.0500, L500.4050, L500.4100 ####[facility] [address] [place], [address] Potassium [Moles/Vol] 4.3 mmol/L Normal 3.3-5.1 [facility] Comment on above: Performed By: #### L 100.0500, L500.4050, L500.4100 ####[facility] [address] [place], [address] Sodium [Moles/Vol] 140 mmol/L Normal 133-145 [facility] Comment on above: Performed By: #### L 100.0500, L500.4050, L500.4100 ####[facility] [address] [place], [address] T PROT 6.9 g/dL Normal 5.9-8.4 [facility] Comment on above: Performed By: #### L 100.0500, L500.4050, L500.4100 ####[facility] [address] [place], [address] Urea nitrogen [Mass/Vol] 25 mg/dL High 4-19 [facility] Comment on above: Performed By: #### L 100.0500, L500.4050, L500.4100 ####[facility] [address] [place], [address] Erythrocyte distribution wid th ratioOrdered By: nEeida Arroyo on 02-28-2025 Erythrocyte distribution width (RBC) [Ratio] 12.3 % 11.6-14.6 [facility] Erythrocyte distribution wid th standard deviationOrdered By: Eneida Arroyo on 02-28-2025 Erythrocyte distribution width (RBC) [Ratio] 42.1 fl 35.1-43.9 [facility] Glomerular filtration rate ( GFR) estimation/1.73 sq m using serum, plasma, or whole bOrdered By: Eneida Arroyo on 02-28-2025 GFR/1.73 sq M.predicted among non-blacks MDRD (S/P/Bld) [Vol rate/Area] 50 mL/min/{1.73_m2} Low >60 [facility] Comment on above: mL/min/1.73m2 CKD-EP I Creatinine Equation (2020) Hematocrit Auto (Bld) [Volum e fraction]Ordered By: Eneida Arroyo on 02-28-2025 Hematocrit (Bld) [Volume fraction] 41.7 % 37-47 [facility] Hemoglobin measurementOrdere d By: Eneida Arroyo on 02-28-2025 Hemoglobin (Bld) [Mass/Vol] 13.6 g/dL 12.0-15.0 [facility] LDL calc ser/plasOrdered By: Eneida Arroyo on 02-28-2025 Cholesterol in LDL [Mass/Vol] 84 mg/dL [facility] Comment on above: Dwurbyzmrg=076-517 m g/dL & Higher Fabq=493 mg/dL or greater Laboratory - Chemistry and C hemistry - challengeOrdered By: Eneida Arroyo on 02-28-2025 AST [Catalytic activity/Vol] 27 U/L <32 [facility] Lipid Profileon 02-28-2025 CHOL:HDL 2.27 Normal [facility] Comment on above: Performed By: #### L 100.0500, L500.4050, L500.4100 ####[facility] [address] [place], [place], [id number] Cholesterol [Mass/Vol] 184 mg/dL Normal <=200 [facility] Comment on above: Result Comment: Chol esterol level, Desirable <200 mg/dL Borderline high cholesterol 200-239 mg/dL High cholesterol >=240 mg/dL Recommendations of the NCEP Adult Treatment Panel for the following risk-cutoff thresholds for the [place] population. Performed By: #### L 100.0500, L500.4050, L500.4100 ####[facility] [address] [place], [address] Cholesterol in HDL [Mass/Vol] 81 mg/dL Normal [facility] Comment on above: Result Comment: [place] onal Cholesterol Education Program (NCEP) guidelines: <40 mg/dL: Low HDL-cholesterol (major risk factor for CHD) >= 60 mg/dL: High HDL-cholesterol (negative risk factor for CHD) HDL-cholesterol is affected by a number of factors, e.g. smoking, exercise, hormones, sex and age. Performed By: #### L 100.0500, L500.4050, L500.4100 ####[facility] [address] [place], [address] Cholesterol in LDL [Mass/Vol] 84 mg/dL Normal [facility] Comment on above: Result Comment: Bord ymbcut=279-943 mg/dL Higher Vztt=173 mg/dL or greater Performed By: #### L 100.0500, L500.4050, L500.4100 ####[facility] [address] [place], [address] Cholesterol in VLDL [Mass/Vol] 19 mg/dL Normal 5-40 [facility] Comment on above: Performed By: #### L 100.0500, L500.4050, L500.4100 ####[facility] [address] [place], [address] Triglyceride [Mass/Vol] 95 mg/dL Normal [facility] Comment on above: Result Comment: The drugs N-Acetylcysteine and Metamizole may falsely depress this assay. Normal range: <150 mg/dL Borderline High: 150-199 mg/dL High: 200-499 mg/dL Very High: >500 mg/dL Performed By: #### L 100.0500, L500.4050, L500.4100 ####[facility] [address] [place], [address] MCV (mean corpuscular volume ) determinationOrdered By: Eneida Arroyo on 02-28-2025 MCV (RBC) [Entitic vol] 92.7 fL 81-99 [facility] Mean corpuscular hemoglobin (MCH) determinationOrdered By: Eneida Arroyo on 02-28-2025 MCH (RBC) [Entitic mass] 30.2 pg 27.0-32.0 [facility] Mean corpuscular hemoglobin concentration (MCHC) determinationOrdered By: Eneida Arroyo on 02-28-2025 MCHC (RBC) [Mass/Vol] 32.6 g/dL 32-36 [facility] Mean platelet volume determi nationOrdered By: Eneida Arroyo on 02-28-2025 Platelet mean volume (Bld) [Entitic vol] 10.4 fL 6.2-12.0 [facility] Platelet countOrdered By: Denisa Arroyo on 02-28-2025 Platelets (Bld) [#/Vol] 184 10*3/uL 150-450 [facility] Potassium measurement (mass/ volume)Ordered By: Eneida Arroyo on 02-28-2025 Potassium (Unsp spec) [Mass/Vol] 4.3 mmol/L 3.3-5.1 [facility] RBC Auto (Bld) [#/Vol]Ordere d By: Eneida Arroyo on 02-28-2025 RBC (Bld) [#/Vol] 4.50 10*6/uL 4.2-5.4 [facility] Screening total cholesterol/ high density lipoprotein (HDL) cholesterol ratioOrdered By: Eneida Arroyo on 02-28-2025 Cholesterol.total/Chol esterol in HDL [Mass ratio] 2.27 {ratio} [facility] Serum creatinine measurement (mass/volume)Ordered By: Eneida Arroyo on 02-28-2025 Creatinine [Mass/Vol] 1.07 mg/dL 0.70-1.20 [facility] Serum globulin measurementOr dered By: Eneida Arroyo on 02-28-2025 Globulin (S) [Mass/Vol] 2.5 g/dL 2.2-4.2 [facility] Serum glucose measurement (m ass/volume)Ordered By: Eneida Arroyo on 02-28-2025 Glucose [Mass/Vol] 96 mg/dL 70-99 [facility] Serum or plasma alanine casanova otransferase (ALT) measurementOrdered By: Eneida Arroyo on 02-28-2025 ALT [Catalytic activity/Vol] 17 U/L <35 [facility] Serum or plasma albumin gio urement (mass/volume)Ordered By: Eneida Arroyo on 02-28-2025 Albumin [Mass/Vol] 4.4 g/dL 3.4-4.8 [facility] Serum or plasma albumin/glob ulin mass ratioOrdered By: Eneida Arroyo on 02-28-2025 Albumin/Globulin [Mass ratio] 1.8 {ratio} 0.9-2.4 [facility] Serum or plasma alkaline donavan sphatase measurementOrdered By: Eneida Arroyo on 02-28-2025 ALP [Catalytic activity/Vol] 82 U/L 35-104 [facility] Serum or plasma calcium gio urement (mass/volume)Ordered By: Eneida Arroyo on 02-28-2025 Calcium [Mass/Vol] 10.1 mg/dL 7.6-11.0 [facility] Serum or plasma cholesterol in HDL measurement (mass/volume)Ordered By: Eneida Arroyo on 02-28-2025 Cholesterol in HDL [Mass/Vol] 81 mg/dL >40 [facility] Comment on above: National Cholesterol Education Program (NCEP) guidelines:<40 mg/dL: Low HDL-cholesterol (major risk factor for CHD)>= 60 mg/dL: High HDL-cholesterol (negative risk factor for CHD)HDL-cholesterol is affected by a number of factors, e.g. smoking, exercise, hormones, sex and age. Serum or plasma cholesterol measurement (mass/volume)Ordered By: Eneida Arroyo on 02-28-2025 Cholesterol [Mass/Vol] 184 mg/dL <201 [facility] Comment on above: Cholesterol level, D esirable <200 mg/dLBorderline high cholesterol 200-239 mg/dLHigh cholesterol >=240 mg/dLRecommendations of the NCEP Adult Treatment Panel for the following risk-cutoff thresholds for the [place] population. Serum or plasma urea nitroge n measurement (mass/volume)Ordered By: Eneida Arroyo on 02-28-2025 Urea nitrogen [Mass/Vol] 25 mg/dL High 4-19 [facility] Sodium levelOrdered By: Owen Arroyo on 02-28-2025 Sodium [Moles/Vol] 140 mmol/L 133-145 [facility] Total proteinOrdered By: Dorothy simba Cruz on 02-28-2025 Protein [Mass/Vol] 6.9 g/dL 5.9-8.4 [facility] Triglycerides measurementOrd ered By: Eneida Arroyo on 02-28-2025 Triglyceride [Mass/Vol] 95 mg/dL <199 [facility] Comment on above: The drugs N-Acetylcy steine and Metamizole may falsely depress this assay. Normal range: <150 mg/dLBorderline High: 150-199 mg/dLHigh: 200-499 mg/dLVery High: >500 mg/dL White blood cell (WBC) count Ordered By: Eneida Arroyo on 02-28-2025 WBC (Bld) [#/Vol] 4.8 10*3/uL 4.4-11.0 [facility] Office Visiton 02-20-2025 Follow-up visit [id number] Chinyere Krishna 1935 F Date Provider Department Center 02/20/2025 [id number]-YGKEUZENON HUSTON [facility] OR None No family history on file Level of Service:98748 [place] POSTOP FOLLOW UP VISIT RELATED TO ORIGINAL PX Reason for Visit and Comments: Post-op [483] - Revision PIP arthroplasty right middle finger, Extensor tenolysis right middle finger DOS 01/06/25 [facility] Progress Noteon 02-20-2025 Progress Note [facility] [place] [facility] [address] [place] [address] Dept: [phone] Dept 02/20/2025 Chief Complaint Patient presents with Post-op Revision PIP arthroplasty right middle finger, Extensor tenolysis right middle finger DOS 01/06/25 SUBJECTIVE Girard is approximately 6 week(s) s/p Revision PIP arthroplasty right middle finger, Extensor tenolysis right middle finger DOS 01/06/25. She is no longer taking anything for pain. She denies complaints at this time. She is wearing her custom splint but has been removing it and working on ROM. OBJECTIVE Ht 5' 1 (1.549 m) Wt 106 lb (48.1 kg) BMI 20.03 kg/m? Ortho Exam Focused Exam of the RIGHT Upper Extremity Skin is well-healed. Minimal global edema surrounding the PIP joint. AROM per clinical images below. NVID. IMAGING 3 views right hand demonstrate middle finger PIP implant appropriately positioned ASSESSMENT (S63.282D) Dislocation of proximal interphalangeal joint of right middle finger, subsequent encounter (S63.289A) Dislocation of finger PIP joint, initial encounter 1. Dislocation of proximal interphalangeal joint of right middle finger, subsequent encounter XR fingers 2+ views right, CANCELED: XR fingers 2+ views right 2. Dislocation of finger PIP joint, initial encounter XR fingers 2+ views right, CANCELED: XR fingers 2+ views right PLAN Chinyere is doing extremely well 6 weeks from surgery. She can wear her PIP splint only at night and start using and strengthening her right hand to her pain tolerance. I will see her back 1 more time in 6 weeks. Follow-up: Chinyere will followup with me in 6 weeks. She knows to call the office with any questions or concerns in the interim. Future Imaging: RIGHT Long Finger 2V Zenon Huston MD Hand and Upper Extremity Surgery [facility] Medical [facility] Department of Orthopaedics and Sports Medicine 02/20/2025 at 2:24 PM (Please note that portions of this note may have been completed with a voice recognition program. Efforts were made to edit the dictations but occasionally words are mis-transcribed.) [facility] XR FINGERS 2+ VIEWS RIGHTon 02-20-2025 XR FINGERS 2+ VIEWS RIGHT 3 views right hand demonstrate middle finger PIP implant appropriately positioned [facility] XR Finger - right 2 Viewson 02-20-2025 3 views right hand demonstrate middle finger PIP implant appropriately positioned [facility] Radiology Study observation (narrative) [facility] Office Visiton 01-18-2025 Follow-up visit [id number] Chinyere Krishna 1935 F Date Provider Department Center 01/18/2025 [id number]-AKVGY, ZENON [facility] ORT None No family history on file Level of Service:30224 [place] POSTOP FOLLOW UP VISIT RELATED TO ORIGINAL PX Reason for Visit and Comments: Post-op [483] - Revision PIP arthroplasty right middle finger, Extensor tenolysis right middle finger // DOS 01/06/25 [facility] Progress Noteon 01-18-2025 Progress Note Pt in today for a sp lint adjustment. Provided pt with new Velcro and straps for finger gutter splint. Pt was satisfied with adjustment. [facility] Progress Note [facility] [address] [facility] [address] Dept: [phone] Dept 01/18/2025 Chief Complaint Patient presents with Post-op Revision PIP arthroplasty right middle finger, Extensor tenolysis right middle finger // DOS 01/06/25 SUBJECTIVE Chinyere is approximately 12 day(s) s/p Revision PIP arthroplasty right middle finger. She reports that since last visit her pain has had much improvement. She is no longer taking anything for pain. She denies significant complaints other than the expected amount of pain OBJECTIVE BP (!) 151/71 Ht 5' 1 (1.549 m) Wt 106 lb (48.1 kg) BMI 20.03 kg/m? Ortho Exam Incision is well-healed. Swelling is improved. No redness or warmth. About a 20 degree baseline flexion contracture at the PIP joint and an associated 20 degree extensor lag at the DIP joint. Active flexion to nearly 60 degrees at the PIP joint. Excellent rotational and angular alignment. NVID. IMAGING NONE ASSESSMENT (F37.545G) Dislocation of proximal interphalangeal joint of right middle finger, subsequent encounter 1. Dislocation of proximal interphalangeal joint of right middle finger, subsequent encounter PLAN Chinyere is doing very well. She can work aggressive finger flexion but is to avoid extension beyond -20 degrees at the PIP joint. Will see her back in about 1 month with x-rays to reassess her motion. Immobilization: Split encouraged to be worn, except during exercises - FULL ROM of bending encouraged, avoidance of fully extending PIP joint Weight Bearing: Weight Bearing As Tolerated Rehabilitation: NO formal rehabilitation required at this point. Follow-up: Chinyere will followup with me in 1 weeks. She knows to call the office with any questions or concerns in the interim. Future Imaging: RIGHT Long Finger 2V Zenon Huston MD Hand and Upper Extremity Surgery [facility] Department of Orthopaedics and Sports Medicine 01/18/2025 at 1:30 PM (Please note that portions of this note may have been completed with a voice recognition program. Efforts were made to edit the dictations but occasionally words are mis-transcribed.) [facility] Office Visiton 01-11-2025 Follow-up visit [id number] Chinyere Krishna 1935 F Date Provider Department Center 01/11/2025 [id number]-ICRCYZENON HUSTON [facility] ORT None No family history on file Level of Service:83995 [place] POSTOP FOLLOW UP VISIT RELATED TO ORIGINAL PX Reason for Visit and Comments: Post-op [483] - Revision PIP arthroplasty right middle finger, Extensor tenolysis right middle finger // DOS 01/06/25 [facility] Progress Noteon 01-11-2025 Progress Note [facility] [address] [facility] [address] Dept: [phone] Dept OCCUPATIONAL THERAPY Orthotic Only Evaluation Patient Name: Chinyere Alberts : 1935 Date of Service: 01/11/2025 Referring Provider: Jose Martin Jean PA-C Diagnosis: Dislocation of proximal interphalangeal joint of right middle finger, subsequent encounter Visit [facility] Chinyere Alberts is a 89 y.o. female s/p 5 days revision of PIP arthroplasty of R middle finger, extensor tenolysis R middle finger; DOS: 01/06/25. General Visit Information History of Injury: Pt fell and injured R middle finger in october of 2023, underwent surgery on 02/12/24 for ORIF of R middle finger PIP joint silicone arthroplasty. The PIP arthroplasty failed with dorsal subluxation of the middle phalanx at the PIP joint. Revision surgery occurred on 01/06/25. Reason for Referral: custom PIP gutter splint for R middle finger. Treatment Guidelines: no formal therapy required at this point. Splint positioning as follows: DIP in full extension and PIP with 20 degrees of flexion. Occupation: does not currently work. Precautions/Red Flags: Pt is to be NWB in the R hand, no movement at the PIP/DIP joint, and instructed to only take splint off for hygiene purposes. Subjective Chief complaints: orthopedic restrictions and mild pain (2/10) Knowledge of HEP/splint wear/care: Pt verbalized/demonstrated understanding of splint wear and care; pt is not currently cleared for movement of PIP or DIP joint so no HEP was provided. Knowledge of condition/precautions/restr ictions: Pt verbalized /demonstrated understanding of precautions and restrictions. Objective ROM: Not tested; no allowed per protocol to move PIP and DIP joint. Full motion at MP joint allowed. Pt has ROM WNL of other fingers, thumb, and wrist. Sensation: intact. Observation of skin/wound: sutures still intact; no evidence of infection. Treatment Therapeutic Activity # of Activities: 3 Therapeutic Activity 1: Discussion of precuations and protocols Activity 1 Comment: NWB, no PIP/DIP movement, full MP motion allowed Splinting Location: R middle finger Type: PIP gutter splint Splinting: Fabrication Splinting Education: Fitting, [place], Precautions, Donning, Wear schedule Splinting Comments: pt verbalized/demonstrated understanding of above splint education Assessment R hand dominant 89 yr old female s/p 5 days revision of PIP arthroplasty of R middle finger, extensor tenolysis R middle finger, presents to office today for fabrication of custom PIP gutter splint for R middle finger. Pt provided with custom fabricated splint; demonstrated/verbalized understanding of all splint education and precautions. Pt knows to call the office with any questions or concerns regarding her splint. Plan & Recommendations Pt does not requires formal therapy at this point. Plan: d/c till cleared for HEP and AROM Goals General/Ortho Patient will demonstrate independence with provided splint education for R middle finger PIP gutter splint. (Initiated) Start: 01/11/25 Completed: 01/11/25 Patient will adhere to prescribed precautions/restrictions for R hand to protect healing structures. (Initiated) Start: 01/11/25 Completed: 01/11/25 Time Entry Total Treatment Time Start Time: 1115 Stop Time: 1148 Time Calculation (min): 33 min OT Evaluation Time Entry OT Evaluation (Low) Time Entry: 8 OT Therapeutic Procedures Time Entry Therapeutic Activity Time Entry: 8 Application of Splint Time Entry: 17 Carolina Anderson, OT [facility] Progress Note [facility] [address] [facility] [address] Dept: [phone] Dept 01/11/2025 Chief Complaint Patient presents with Post-op Revision PIP arthroplasty right middle finger, Extensor tenolysis right middle finger // DOS 01/06/25 SUBJECTIVE Girard is approximately 6 day(s) s/p Revision PIP arthroplasty right middle finger, Extensor tenolysis right middle finger // DOS 01/06/25. She reports that the pain is moderate. She is taking tylenol for pain relief, which helps. She denies significant complaints other than the expected amount of pain. Is pleased with the overall alignment of her middle finger. Little to no pain. Has a, appointment with therapy later this morning. OBJECTIVE Ht 5' 1 (1.549 m) Wt 106 lb (48.1 kg) BMI 20.03 kg/m? Ortho Exam Focused Exam of the RIGHT Upper Extremity Incision is healing nicely. Expected mild swelling. Excellent alignment at the PIP joint which is held in about 20 degrees of flexion. Able to achieve about 60 degrees of active flexion today. NVID. Clinical Photos Taken: IMAGING RIGHT Hand 3V well-positioned PIP implant without evidence of failure. Slight ulnar drift ASSESSMENT (Y33.790D) Dislocation of proximal interphalangeal joint of right middle finger, subsequent encounter 1. Dislocation of proximal interphalangeal joint of right middle finger, subsequent encounter XR hand 3+ views right PLAN Chinyere is doing well and less than a week out from revision PIP arthroplasty with too much larger implant. Radiographically and clinically it appears well-positioned. I stressed the importance of avoiding hyperextension of the PIP joint to prevent undue stress of the implant. I would be perfectly happy if she rested in about 20 to 30 degrees of flexion at the PIP joint but was able to achieve near 90 of flexion. If she has any additional ulnar drift may consider taping to the index finger. She will follow-up next week for suture removal and to continue with the therapy per protocol. Immobilization: Custom OT splint: Continue with current use Weight Bearing: Non Weight Bearing Rehabilitation: NO formal rehabilitation required at this point. Follow-up: Chinyere will followup with me in 1 week. She knows to call the office with any questions or concerns in the interim. Future Imaging: NONE Zenon Huston MD Hand and Upper Extremity Surgery [facility] Department of Orthopaedics and Sports Medicine 01/11/2025 at 9:59 AM (Please note that portions of this note may have been completed with a voice recognition program. Efforts were made to edit the dictations but occasionally words are mis-transcribed.) [facility] XR HAND 3+ VIEWS RIGHTon XR HAND 3+ VIEWS RIGHT well-positioned P IP implant without evidence of failure. Slight ulnar drift [facility] XR Hand - right 3 Viewson well-positioned PIP implant without evidence of failure. Slight ulnar drift [facility] Radiology Study observation (narrative) [facility] Nursing Noteon 01-06-2025 Nursing Note Patient ambulatory t o/from BR with Rn assist, patient had slow but steady gait. Patient tolerated PO fluids and crackers. Pain is tolerable. Discharge instructions reviewed with both patient and , both verbalize understanding. Rn assisted patient with getting dressed. Assisted into wheelchair and out to car free of complaints. [facility] Nursing Note Patient reports feel ing better and much more awake. Assisted to/from BR with slow , steady gait. Sitting upright on edge of bed, PO fluids and snacks provided. and call michelle remains bedside. [facility] Nursing Note Patient declines PO fluids/crackers. States she's to drowsy to sit up/eat yet. bedside. Denies pain. [facility] Nursing Note Received patient fro m OR to PACU with ZINC PLATE CUTTER. Patient is waking up from surgery on room air, no respiratory distress noted. Patient is awake and talking, c/o restless legs, denies surgical pain. Cardiac monitoring on, safety maintained. Rn remains bedside. [facility] Op Noteon 01-06-2025 Op Note [facility] OR [address] [place] [address] Dept: [phone] Loc: [phone] Operative Report Patient Name: Chinyere Alberts Date of : 1935 Date of Surgery: 01/06/25 Preoperative Diagnosis: Failed PIP arthroplasty right middle finger Extensor tendon adhesions right middle finger Postoperative Diagnosis: Same Procedure: Revision PIP arthroplasty right middle finger Extensor tenolysis right middle finger Surgeon: Zenon Huston MD 1st Assist: Mickey Billings MD 2nd Assist: Katrin Caraballo PA-C Implants: Blunt Size 2 silicone implant Specimens Removed: None Anesthesia: MAC Local Anesthesia: 1% lidocaine with epinephrine (1:100,000) for a total of 10ml into the subcutaneous tissues of the operative site(s) Tourniquet: Brachium Estimated Blood Loss: <5ml Pre Operative Antibiotics: Yes Indications: Ms. Chinyere Alberts is a 89 y.o. 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 She was treated with PIP arthroplasty and initially did extremely well but unfortunately developed a failed implant. She presents today for revision surgery. I have discussed with her, preoperatively, the complications, limitations, expectations, alternatives, and risks of surgical intervention which she has demonstrated understanding. No guarantees were given or implied. After having all of her questions answered to her satisfaction, Ms. Chinyere Alberts has provided written informed consent to proceed. Please see previous notes for full operative risk discussion. Procedure: Chinyere Alberts was identified in the preoperative waiting area. Her operative site was initialed and consent was reviewed. Final questions were answered. She was brought to the operating room and placed in the supine position. All bony prominences were well padded. The operative extremity was prepped and draped in the usual sterile fashion. A surgical timeout was then performed with the patient's identification, the procedure to be performed being reviewed, verification that the patient had received preoperative antibiotics if indicated, and verification of the correct surgical site. The patient's ASA was verified by the nurse lead janitor and the anesthesia staff. Fire risk was assessed. An esmarch bandage was used to exsanguinate the limb and the tourniquet was inflated to 250mm Hg. The previous longitudinal incision over the dorsum of the middle finger PIP joint was utilized. Full-thickness skin flaps were elevated from the extensor tendon. The previously repaired split in the extensor tendon was sharply divided and the location of the FiberWire sutures. The extensor was divided sharply down to the level of the periosteum of the proximal and middle phalanges. I carefully released extensor tendon adhesions both proximally and distally to ensure full extensor tendon excursion. The patient's PIP arthroplasty had failed at its hinge work fracture of the implant was noted. There was no evidence of infection. The implant was easily removed from the joint. The collateral ligaments were sharply divided. I used a small rongeur to shorten the proximal phalanx approximately 2 mm and then sequentially broached both the proximal and middle phalangeal canal to except a size 2 implant. The implant was trialed and found to have excellent fit and fill extending slightly radial/ulnar to the joint. I elected to use the slightly oversized size 2 implant because it had fit and fill. The wound was irrigated with Betadine impregnated saline and the final implant placed in appropriate position. With resting tension on the digit the implant maintain its position in both the coronal and sagittal planes. The finger was then taken throughout full range of motion with excellent stability noted both clinically and radiographically. The extensor tendon was then repaired with 3-0 FiberWire suture and the tourniquet deflated. Hemostasis was achieved bipolar cautery and gentle compression. Skin was then closed in layers followed by well-padded volar splint to the middle finger maintaining slight flexion at the PIP joint and terminal extension at the DIP. Ms. Chinyere Alberts was taken to the recovery room in stable condition. POST OPERATIVE PLAN IPO: fit with custom volar gutter splint to middle finger maintaining 20 degree flexion at PIPJ and full extension at DIPJ. Allow immediate full MCP flexion/extension while maintaining splint position of PIP and DIPJ. 4wks: come of of splint to begin flexion of PIP and DIP joints unrestricted - both actively and passively. No extension of PIPJ beyond 20 deg of flexion. 6wks: allow full PIP extension and begin simple waldo taping middle to index or ring. Splint to be worn only at night 12wks: DC night splint (more content not included)... [facility] [id number] 12-23-2024 [id number] Medication List Accurate as of December 23, 2024 9:59 AM. Always use your most recent med list. aspirin 81 MG chewable tablet Medication Adjustments for Surgery: Stop 5 days before surgery Calcium Citrate-Vitamin D 250-2.5 MG-MCG tablet Medication Adjustments for Surgery: Hold morning of surgery ipratropium 0.03 % nasal spray Commonly known as: Atrovent Medication Adjustments for Surgery: Take morning of surgery levothyroxine 50 MCG tablet Commonly known as: Synthroid, Levoxyl Medication Adjustments for Surgery: Take morning of surgery losartan 50 MG tablet Commonly known as: Cozaar Medication Adjustments for Surgery: Hold morning of surgery Melatonin 3 MG tablet dispersible Medication Adjustments for Surgery: Take night before surgery omeprazole [address] capsule Commonly known as: PriLOSEC Medication Adjustments for Surgery: Take morning of surgery polyethylene glycol (PEG) 3350 17 g packet Commonly known as: Miralax Medication Adjustments for Surgery: Hold morning of surgery pregabalin 50 MG capsule Commonly known as: Lyrica Medication Adjustments for Surgery: Take morning of surgery QC TUMERIC COMPLEX PO Medication Adjustments for Surgery: Hold morning of surgery rOPINIRole 0.5 MG tablet Commonly known as: Requip Medication Adjustments for Surgery: Take night before surgery simvastatin 40 MG tablet Commonly known as: Zocor Medication Adjustments for Surgery: Take night before surgery Tylenol Extra Strength 500 MG tablet Generic drug: acetaminophen Medication Adjustments for Surgery: Take morning of surgery Additional Instructions: You may take your prescription pain medication. You may take Tylenol for pain. NO Motrin, ibuprofen or Advil for 24 hours prior to surgery or longer if instructed by your surgeon. NO Aleve or Naprosyn for 5 days prior to surgery or longer if instructed by your surgeon. IF YOU TAKE BLOOD THINNERS OR ASPIRIN: Stop aspirin 81 mg 5 days prior to surgery Follow any instructions given to you by Dr. Robel Shields with an antibacterial soap such as Dial or Safeguard or shower kit provided to you before coming to the hospital. No makeup, lotion, powder, deodorant or body spays. No hair products. Remove all jewelry and leave it at home. Wear loose comfortable clothing to go home in. You may brush your teeth morning of surgery. Do not wear contacts day of surgery. No marijuana (THC), smoking or alcohol for 24 hours prior to surgery. Please arrange for a responsible adult to drive you home after your surgery and that there is a responsible adult with you for 24 hours post discharge. If you have specific questions, please call your surgeon. You will receive a call the day before your surgery to verify your arrival time and date. You will be asked to arrive at least two hours prior to your scheduled surgery time. Please bring your [facility] Surgical folder and medication list with you day of surgery. We encourage you to write down any questions you may have for the surgeon, anesthesiologist, or other members of the surgical team and bring it with you the day of surgery. Please bring photo ID and insurance information. DO NOT take aspirin or aspirin containing products for 5 days before surgery, or longer if instructed by your surgeon. PRESCRIPTION CLERK LENSES AND PARKING IN THE MAIN DECK ARE FREE DAY OF SURGERY. PARKING IN THE DECK-- AFTER PARKING TAKE THE ELEVATOR TO LEVEL ONE AND TAKE THE BRIDGE TO THE HOSPITAL. GO TO THE RIGHT AND GO AROUND THE CORNER TO THE SAME DAY SURGERY DESK AND CHECK IN THERE. IF GOING IN THE MAIN ENTRANCE-- TURN LEFT AND GO DOWN THE HECTOR TO THE H ELEVATORS AND TAKE THEM TO ONE, LEFT OFF THE ELEVATOR AND GO AROUND TO THE SAME DAY DESK AND CHECK IN [facility] XR HAND 3+ VIEWS RIGHTon XR HAND 3+ VIEWS RIGHT interval PIP arth roplasty failure with dorsal subluxation of the middle phalanx at the PIP joint, silicone implant appears intact with the middle phalanx only [facility] 36on 11-30-2024 36 PAT Orders Signed. P atient is on Aspirin and will need to contact the prescriber for management for the surgery. Splint Order Signed. [facility] 36on 11-28-2024 36 Please enter PAT ord ers, please Sx- 01/06 @ 10a Consent- Revision right middle finger PIP arthroplasty Dx-(M79.641) Right hand pain Anesthesia-MAC/Local PAT- 12/23 @ (notified pt on 12/01) CT- no XR IPO- yes Surgery Checklist Details Calendar done Clearance no Case # [id number] Authorization NAN medicare a/b PAT Day/Time 12/23 @10a PAT Orders to Jose Martin done Splint Yes - right middle finger PIP gutter splint IPO 01/11 @ 10:15a JV Can put her on the th [facility] SURGERY SCHEDULING SLIP Patient: Chinyere Alberts Date of : 1935 Date of Surgery: 01/06/25 Day of Surgery: [facility]: [place] Duration: 60min Type: Outpatient PAT: Yes - tele Med Clearance: No Anesthesia: MAC/Local Block: None Position: Supine Table: Stretcher Arm Board: Roll-up arm table Radiology: Small C-Arm CPT Code: 37920 Consent: REVISION RIGHT MIDDLE FINGER INTERPHALANGEAL ARTHROPLASTY FollowUp: Robel in 5-7 days XRays: Yes OT Splint needed at first PO appointment: Yes - right middle finger PIP gutter splint Special Requests Hand tray Merritt blunt implants [facility] Office Visiton 11-28-2024 Follow-up visit [id number] Chinyere Krishna 1935 F Date Provider Department Center 11/28/2024 [id number] HUSTON [facility] OR None No family history on file Level of Service:67464 [place] OFFICE/OUTPATIENT ESTABLISHED LOW MDM 20 MIN Reason for Visit and Comments: Follow-up [410467] - rt middle finger pain and edema [facility] Progress Noteon 11-28-2024 Progress Note [facility] [place] [address] [place] [address] [place] [id number] Dept: [phone] Dept 11/28/2024 Chief Complaint Patient presents with Follow-up rt middle finger pain and edema HPI Chinyere returns today in follow-up regarding rt middle finger pain and edema . Last appointment was approximately 7 months ago. She is status post Open reduction right middle finger PIP joint with PIP joint silicone arthroplasty 02/12/24. At her last appointment she was encouraged to continue full use without restrictions and therapy as needed. The patient returns today with an increase in swelling and pain of her right middle finger PIP joint. This started last month. She does not recall a specific injury but does recall struggling to make her bed due to her symptoms. She is also noticing difficulty extending her PIP joint. Symptom duration: less than 1 year. No results found for: HGBA1C OBJECTIVE Resp 13 Ht 5' 1 (1.549 m) Wt 102 lb (46.3 kg) BMI 19.27 kg/m? Ortho Exam Focused Exam of the RIGHT Upper Extremity Skin: intact without any evidence of breakdown, well-healed dorsal incision over the middle finger PIP joint Edema: moderate edema surrounding the PIP joint of the middle finger Palpation: tender to palpation over the PIP joint of the middle finger along the radial dorsal aspect ROM: full functional ROM of the shoulder, elbow, wrist, and hand excluding the middle finger with limited extension of the PIP joint to -45 degrees, patient is able to flex fingertip to palm; subtle ulnar malalignment of the middle finger PIP Motor: Intact in the hand - able to fire AIN, PIN, and Ulnar nerves Sensation: intact to light touch in all fingers Perfusion: Brisk capillary refill in all 5 digits Examination of the contralateral upper extremity reveals skin to be warm, dry, and intact. There is no evidence of edema. She has full range of motion without apparent instabilities. There is no apparent tenderness to palpation. Excellent strength without deficit. Normal coordination and sensation throughout her upper extremity. Easily palpable radial pulse. IMAGING XRay: Right Hand 3V show interval PIP arthroplasty failure with dorsal subluxation of the middle phalanx at the PIP joint, silicone implant appears intact with the middle phalanx only NCT/EMG (Copied Impression) none PROCEDURE none ASSESSMENT (M19.893D) Dislocation of proximal interphalangeal joint of right middle finger, subsequent encounter (Z96.714) History of arthroplasty of finger 1. Dislocation of proximal interphalangeal joint of right middle finger, subsequent encounter XR hand 3+ views right 2. 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 She returns today with increased pain and swelling of her middle finger PIP joint and evidence of arthroplasty failure on repeat imaging. We discussed treatment options including benign neglect, revision arthroplasty, and arthrodesis. She would like to maintain as much mobility as possible and prefers to proceed with revision arthroplasty. She understands high risk of recurrent arthroplasty failure and generalized increase of post operative risks with revision surgery. We reviewed postoperative expectations and she is comfortable with the plan. The patient is consented for revision right middle finger PIP joint arthroplasty. I had an extensive discussion with Ms. Chinyere Alberts regarding the natural history, etiology, and dietetic aide consequences of her condition. We discussed both operative and non operative treatment options and Chinyere Alberts elected to proceed with surgical intervention. I have discussed with Ms. Chinyere Alberts the potential complications, limitations, expectations, alternatives, and risks of the proposed surgical procedure. Risks discussed include but are not limited to the risk of infection, iatrogenic injury to normal neurovascular structures, persistent pain and disability, unsightly scar, stiffness, complex regional pain syndrome, malunion, non union, hardware failure, need for hardware removal, loss of limb, myocardial infarction, deep vein thrombosis, pulmonary embolism and even . We also discussed the potential risk of COVID-19 exposure or infection and how it could alter her post operative recovery course. She has had full opportunity to ask her questions. I have answered them all to her satisfaction. I feel that Ms. Chinyere Alberts does understand our discussion today and she is comfortable providing informed consent for the procedure. Immobilization: NO immobilization required at this point - FULL ROM all joints encouraged Weight (more content not included)... [facility] XR Hand - right 3 Viewson [facility] interval PIP arthrop lasty failure with dorsal subluxation of the middle phalanx at the PIP joint, silicone implant appears intact with the middle phalanx only [facility] Radiology Study observation (narrative) [facility] 36on 11-22-2024 36 Pt is scheduled 11/28 with Katrin. [facility] 36on 11-21-2024 36 Called patient and l eft a message stating we would need to her to come in for an appointment and if she cannot wait for an appointment please go to Urgent care. [facility] 36 Name of Caller: Darlyn campuzano Relationship to Patient: Self Symptoms/Concerns: Complaints of right middle finger pain with edema. Patient has surgery on it last January with Dr Huston for the right middle finger being dislocation. She is concerned with the amount of pain she has been experiencing chronically Provider: robel Practice Name: Ortho [facility] CBC W Ordered Manual Differe ntial panel (Bld)on 11-11-2024 Basophils (Bld) [#/Vol] 0.08 10*3/uL Normal <0.11 [facility] Comment on above: Order Comment: Speci men Type: BLOOD SPECIMENOrdering Facility: [facility] Address: [address] [place] [address] Performed By: #### 5 7782-5 ####[facility] [id number] [place] [address] [place] [facility] LABCLIA [id number] [place] [address] [place]#### STFREV ####[facility] LABCLIA [id number] [address], [place] [address] [place] Basophils/100 WBC (Bld) 1.5 % [facility] Comment on above: Order Comment: Speci men Type: BLOOD SPECIMENOrdering Facility: [facility] Address: [address] [place] [address] Performed By: #### 5 7782-5 ####[facility] SHAWLIA [id number] [address] STATES OF [facility] LABCLIA [id number] [place] [address] [place]#### STFREV ####[facility] LABCLIA [id number] [place] [id number] [place] Differential cell count method Nom (Bld) Auto [facility] Comment on above: Order Comment: Speci men Type: BLOOD SPECIMENOrdering Facility: [facility] Address: [address] [place] [address] Performed By: #### 5 7782-5 ####[facility] [id number] [address] STATES OF [facility] LABCLIA [id number] [place] [address] [place]#### STFREV ####[facility] LABCLIA [id number] [place] [address] [place] Eosinophils (Bld) [#/Vol] 0.30 10*3/uL Normal <0.46 [facility] Comment on above: Order Comment: Speci men Type: BLOOD SPECIMENOrdering Facility: [facility] Address: [address] [place] [address] Performed By: #### 5 7782-5 ####[facility] [id number] [address] STATES OF [facility] LABCLIA [id number] [place] [address] [place]#### STFREV ####[facility] LABCLIA [id number] [place] [address] [place] Eosinophils/100 WBC (Bld) 5.6 % [facility] Comment on above: Order Comment: Speci men Type: BLOOD SPECIMENOrdering Facility: [facility] Address: [address] [place] [address] Performed By: #### 5 7782-5 ####[facility] [id number] [address] OF [facility] LABCLIA [id number] [place] [address] [place]#### STFREV ####[facility] LABCLIA [id number] [place] [address] [place] Erythrocyte distribution width (RBC) [Ratio] 12.3 % Normal 11.5-15.0 [facility] Comment on above: Order Comment: Speci men Type: BLOOD SPECIMENOrdering Facility: [facility] Address: [address] [place] [address] Performed By: #### 5 7782-5 ####[facility] [id number] [place] [address] [place] [facility] LABCLIA [id number] [facility] [address] [place] [address] [place]#### STFREV ####[facility] LABCLIA [id number] [facility] [address] [place] [address] [place] Hematocrit (Bld) [Volume fraction] 39.6 % Normal 36.0-46.0 [facility] Comment on above: Order Comment: Speci men Type: BLOOD SPECIMENOrdering Facility: [facility] Address: [address] [place] [address] Performed By: #### 5 7782-5 ####[facility] SHAWLIA [id number] [place] [address] [place] [facility] LABCLIA [id number] [facility] [address], [place] [address] [place]#### STFREV ####[facility] LABCLIA [id number] [facility] [address] [place] [address] [place] Hemoglobin (Bld) [Mass/Vol] 13.1 g/dL Normal 11.5-15.5 [facility] Comment on above: Order Comment: Speci men Type: BLOOD SPECIMENOrdering Facility: [facility] Address: [address] [place], [place] [id number] Performed By: #### 5 7782-5 ####[facility] [id number] [place] [address] [place] [facility] LABCLIA [id number] [facility]ENT[facility] [address] [place] [address] [place]#### STFREV ####[facility] LABCLIA [id number] [place] [address] [place] Immature granulocytes (Bld) [#/Vol] 10*3/uL Normal <0.10 [facility] Comment on above: Order Comment: Speci men Type: BLOOD SPECIMENOrdering Facility: [facility] Address: [address] [place] [address] Performed By: #### 5 7782-5 ####[facility] SHAWLIA [id number] [address] STATES [facility] LABCLIA [id number] [place] [address] [place]#### STFREV ####[facility] LABCLIA [id number] [place] [address] [place] Immature granulocytes/100 WBC (Bld) 0.4 % Normal [facility] Comment on above: Order Comment: Speci men Type: BLOOD SPECIMENOrdering Facility: [facility] Address: [address] [place] [address] Performed By: #### 5 7782-5 ####[facility] [id number] [address] STATES [facility] LABCLIA [id number] [place] [address] [place]#### STFREV ####[facility] LABCLIA [id number] [place] [id number] [place] Lymphocytes (Bld) [#/Vol] 0.99 10*3/uL Low 1.00-4.00 [facility] Comment on above: Order Comment: Speci men Type: BLOOD SPECIMENOrdering Facility: [facility] Address: [address] [place] [address] Performed By: #### 5 7782-5 ####[facility] [id number] [place] [address] [place] [facility] LABCLIA [id number] [place] [address] [place]#### STFREV ####[facility] LABCLIA [id number] [place] [address] [place] Lymphocytes/100 WBC (Bld) 18.5 % Normal [facility] Comment on above: Order Comment: Speci men Type: BLOOD SPECIMENOrdering Facility: [facility] Address: [address] [place] [address] Performed By: #### 5 7782-5 ####[facility] SHAWLIA [id number] [place] [address] [place] [facility] LABCLIA [id number] [place] [address] [place]#### STFREV ####[facility] LABCLIA [id number] [place] [address] [place] MCH (RBC) [Entitic mass] 30.4 pg Normal 26.0-34.0 [facility] Comment on above: Order Comment: Speci men Type: BLOOD SPECIMENOrdering Facility: [facility] Address: [address] [place] [address] Performed By: #### 5 7782-5 ####[facility] [id number] [place] [address] [place] [facility] LABCLIA [id number] [place] [address] [place]#### STFREV ####[facility] LABCLIA [id number] [place] [address] [place] MCHC (RBC) [Mass/Vol] 33.1 g/dL Normal 30.5-36.[address] [facility] Comment on above: Order Comment: Speci men Type: BLOOD SPECIMENOrdering Facility: [facility] Address: [address] [place] [address] Performed By: #### 5 7782-5 ####[facility] [id number] [place] [address] [place] [facility] LABCLIA [id number] [place] [address] [place]#### STFREV ####[facility] LABCLIA [id number] [place] [address] [place] MCV (RBC) [Entitic vol] 91.9 fL Normal 80.0-100.0 [facility] Comment on above: Order Comment: Speci men Type: BLOOD SPECIMENOrdering Facility: [facility] [facility]OSP[facility] Address: [address] [place] [address] Performed By: #### 5 7782-5 ####[facility] SHAWLIA [id number] [place] [address] [place] [facility] LABCLIA [id number] [place] [address] [place]#### STFREV ####[facility] LABCLIA [id number] [place] [address] [place] Monocytes (Bld) [#/Vol] 0.32 10*3/uL Normal <0.87 [facility] Comment on above: Order Comment: Speci men Type: BLOOD SPECIMENOrdering Facility: [facility] Address: [address] [place] [address] Performed By: #### 5 7782-5 ####[facility] MILLTOWNCLIA [id number] [place] [address] [place] AMERICA[facility] LABCLIA [id number] [facility] [address], [facility] [place]#### STFREV ####[facility] LABCLIA [id number] [address], [facility] [place] Monocytes/100 WBC (Bld) 6.0 % Normal [facility] Comment on above: Order Comment: Speci men Type: BLOOD SPECIMENOrdering Facility: [facility] Address: [address] [place] [address] Performed By: #### 5 7782-5 ####[facility] [id number] [place] [address] [place] [facility] LABCLIA [id number] [place] [address] [place]#### STFREV ####[facility] LABCLIA [id number] [place] [address] [place] Neutrophils (Bld) [#/Vol] 3.63 10*3/uL Normal 1.45-7.50 [facility] Comment on above: Order Comment: Speci men Type: BLOOD SPECIMENOrdering Facility: [facility] Address: [address] [place] [address] Performed By: #### 5 7782-5 ####[facility] [id number] [place] [address] [place] [facility] LABCLIA [id number] [facility] [place] [id number] [place]#### STFREV ####[facility] LABCLIA [id number] [place] [id number] [place] Neutrophils/100 WBC (Bld) 68.0 % Normal [facility] Comment on above: Order Comment: Speci men Type: BLOOD SPECIMENOrdering Facility: [facility] Address: [address] [place] [address] Performed By: #### 5 7782-5 ####[facility]ENTERNCLIA [id number] [place] [address] [place] [facility] LABCLIA [id number] [facility] [address], [place] [address] [place]#### STFREV ####[facility] LABCLIA [id number] [facility] [address], [place] [address] [place] Nucleated RBC (Bld) [#/Vol] 10*3/uL Normal <0.01 [facility] Comment on above: Order Comment: Speci men Type: BLOOD SPECIMENOrdering Facility: [facility] Address: [address] [place] [address] Performed By: #### 5 7782-5 ####[facility] [id number] [place] [address] [place] [facility] LABCLIA [id number] [facility] [address], [place] [address] [place]#### STFREV ####[facility] LABCLIA [id number] [facility] [address], [place] [address] [place] Nucleated RBC/100 WBC (Bld) [Ratio] 0.0 /100 WBC Normal [facility] Comment on above: Order Comment: Speci men Type: BLOOD SPECIMENOrdering Facility: [facility] Address: [address] [place] [address] Performed By: #### 5 7782-5 ####[facility] [id number] [place] [address] [place] [facility] LABCLIA [id number] [facility] [address], [place] [facility] [place]#### STFREV ####[facility] LABCLIA [id number] [address] [place] [address] [place] Platelet mean volume (Bld) [Entitic vol] 10.1 fL Normal 9.0-12.7 [facility] Comment on above: Order Comment: Speci men Type: BLOOD SPECIMENOrdering Facility: [facility] Address: [address] [place] [address] Performed By: #### 5 7782-5 ####[facility]WL[facility] [id number] [place] [address] [place] [facility] LABCLIA [id number] [address] [place] [address] [place]#### STFREV ####[facility] LABCLIA [id number] [address] [address] [place] Platelets (Bld) [#/Vol] 151 10*3/uL Normal 150-400 [facility] Comment on above: Order Comment: Speci men Type: BLOOD SPECIMENOrdering Facility: [facility] Address: [address] [place] [address] Performed By: #### 5 7782-5 ####[facility] [id number] [place] [address] [place] [facility] LABCLIA [id number] [address] [place] [address] [place]#### STFREV ####[facility] LABCLIA [id number] [address] [place] [address] [place] RBC (Bld) [#/Vol] 4.31 10*6/uL Normal 3.90-5.20 [facility] Comment on above: Order Comment: Speci men Type: BLOOD SPECIMENOrdering Facility: [facility] Address: [address] [place] [address] Performed By: #### 5 7782-5 ####[facility] WESTTOWNCLIA [id number] [place] [address] [place] [facility] LABCLIA [id number] [place] [address] [place]#### STFREV ####[facility] LABCLIA [id number] [place] [address] [place] WBC (Bld) [#/Vol] 5.34 10*3/uL Normal 3.70-11.00 [facility] Comment on above: Order Comment: Speci men Type: BLOOD SPECIMENOrdering Facility: [facility] Address: [address] [place] [address] Performed By: #### 5 7782-5 ####[facility]ENTERNCLIA [id number] [address] STATES [facility] LABCLIA [id number] [place] [address] [place]#### STFREV ####[facility] LABIA [id number] [place] [address] [place] PATHOLOGIST INTERPRETATION C BC/DIFFon 11-11-2024 [employer] review Magdaleno (Unsp spec) [Interp] No review performed. Normal [facility] Comment on above: Order Comment: Speci men Type: BLOOD SPECIMENOrdering Facility: [facility] Address: [address] [place] [address] Performed By: #### 5 7782-5 ####[facility] HEALTHWNCLIA [id number] [address] OF [facility] LABCLIA [id number] [place] [address] [place]#### STFREV ####[facility] LABCLIA [id number] [address] STAFF REVIEW, CBCDIF The Pathologist Interpretation on this sample was cancelled because the hematology analyzer did not flag any parameters as requiring manual review. If there is a specific clinical concern for which you would like a pathologist to review the blood smear, please call Lab Client Services within 28 days. Normal [facility] Comment on above: Order Comment: Speci men Type: BLOOD SPECIMENOrdering Facility: [facility] Address: [facility] [place] [address] Performed By: #### 5 7782-5 ####[facility] [id number] [place] [id number] [place] [address] OF [facility] LABCLIA [id number] [address]#### STFREV ####[facility] LABCLIA [id number] [place] [id number] [facility] CNPNon 10-[facility] CHINYERE KRISHNA ([id number]) 1935 F Date Time Provider Department 10/25/24 JEFFY FIELDS [facility] During your visit today, we recorded the following information about you: Jeffy Fields MD 10/25/2024 7:39 AM Signed Labs stable, except white count is slightly down. Can be from something like a viral syndrome. Recheck cbc in two to four weeks. Elvia Mcrae LPN 10/25/2024 2:32 PM Signed Patient notified. Allergies As of Date: 10/25/2024 Noted Allergy Reaction ASA (SALICYLATES) 11/20/2005 Comments: ringing in ears FLONASE (FLUTICASONE) 11/05/2018 14 - Other: See Comments Comments: gets jittery GENTEAL PM (WHITE PETROLATUM-MINE*09/14/2023 9 - Itching SULFA (SULFONAMIDE ANTIBIOTICS) 11/20/2005 4 - Hives Date Reviewed: 10/21/2024 Reviewed by: Pretty Juarez MA - Fully Assessed Reason for Visit: Results [95] Primary Visit Diagnosis:Leukopenia, unspecified type [D72.819] Order(s):PATHOLOGIST INTERPRETATION WITH CBC AND DIFF [SQSTREV] Order #: [id number] FUTURE Prescriptions as of 10/25/2024 - pregabalin (LYRICA) 50 mg capsule 1 capsule at noon, bedtime, and midnight - rOPINIRole (REQUIP) 0.5 mg tablet one tablet at noon and 4PM, 1 tablets at 8PM and 1 tablet at midnight. - levothyroxine (SYNTHROID) 50 mcg tablet Take 1 tablet by mouth once daily 6 out of 7 days per week. - losartan (COZAAR) 50 mg tablet Take 1 tablet by mouth once daily. - omeprazole (PRILOSEC) 20 mg capsule Take one tablet by mouth q day - simvastatin (ZOCOR) 40 mg tablet Take 1 tablet by mouth daily at bedtime. - polyethylene glycol 3350 (MIRALAX) 17 gram/dose powder Take 17 g by mouth once daily. Dissolve dose in 4 - 8 ounces of liquid and take as directed. - TURMERIC ORAL Take 2 capsules by mouth once daily. - calcium carbonate/vitamin D3 (CALCIUM WITH VITAMIN D ORAL) Take 1 tablet by mouth once daily. - IPRATROPIUM BROMIDE NASAL Use 1 Leburn in the nose twice daily. - hypromellose(GENTEAL MODERATE 0.3 % EYE DROPS) To left eye - ASPIRIN 81 MG TAB Take one (1) tablet daily . Problem List As Of Date 10/25/2024 Noted Resolved OSTEOPOROSIS POSTMENOPAUSAL [M81.0] 11/20/2005 Hypothyroidism [E03.9] 11/20/2005 BENIGN HYPERTENSION [I10] 11/20/2005 Restless legs syndrome [G25.81] 11/20/2005 Hyperlipidemia [E78.5] 11/20/2005 Esophageal reflux [K21.9] 11/20/2005 04/19/2019 URETHRITIS OTHER SPECIFIED [N34.1] 01/13/2006 05/12/2022 HYPERCALCEMIA [E83.52] 05/19/2006 05/24/2007 Anemia of chronic renal failure, stage 2 (mild)*05/19/2006 01/23/2023 Disorder of kidney and ureter [N28.9] 05/19/2006 05/12/2022 DIZZINESS AND GIDDINESS [R42] 02/11/2007 05/24/2007 Pain in limb [M79.609] 06/01/2007 09/30/2016 Enthesopathy of unspecified site [M77.9] 07/12/2007 04/19/2019 Paresthesia of skin [R20.2] 07/13/2007 06/05/2017 Stage 3 chronic kidney disease (HCC) [N18.30] 03/20/2009 Psoriatic arthritis (HCC) [L40.50] 02/13/2011 05/12/2022 Arthritis [M19.90] Trigger middle finger of left hand [M65.332] 09/22/2011 04/19/2019 Trigger index finger of right hand [M65.321] 09/22/2011 04/19/2019 Trigger thumb of right hand [M65.311] 09/22/2011 04/19/2019 Other psoriasis [L40.8] 03/03/2012 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] 03/03/2012 06/05/2017 Other seborrheic dermatitis [L21.8] 03/03/2012 04/20/2015 Xerosis cutis [L85.3] 03/03/2012 04/20/2015 Actinic skin damage [L57.8] 03/03/2012 04/20/2015 Trigger little finger of left hand [M65.352] 05/03/2012 04/19/2019 Trigger middle finger of right hand [M65.331] 05/31/2012 04/19/2019 Trigger ring finger of right hand [M65.341] 05/31/2012 04/19/2019 Irritated//Inflamed Seborrheic Keratosis [L82.0]07/06/2012 04/20/2015 Milial cyst [L72.0] 07/06/2012 04/20/2015 Other seborrheic keratosis [L82.1] 07/06/2012 04/20/2015 Solar lentigo [L81.4] 07/06/2012 04/20/2015 Milia [L72.0] 07/06/2012 04/20/2015 Anal burning [K62.89] 03/23/2013 04/20/2015 Perianal dermatitis [L30.9] 08/22/2013 05/12/2022 Perioral dermatitis [L71.0] 03/22/2014 03/31/2017 Acne rosacea [L71.9] 03/22/2014 05/12/2022 Postinflammatory skin changes [R23.8] 03/22/2014 04/20/2015 Trigger ring finger of left hand [M65.342] 06/05/2014 04/19/2019 Essential tremor [G25.0] 05/30/2015 Hyperlipidemia [E78.5] 10/19/2015 03/31/2017 Gastroesophageal reflux disease [K21.9] 08/20/2018 10/07/2018 Functional dyspepsia [K30] 08/20/2018 Epigastric pain [R10.13] 08/20/2018 04/19/2019 GERD (gastroesophageal reflux disease) [K21.9] 08/20/2018 Prediabetes [R73.03] 05/31/2019 Lung nodule < 6cm on CT [[id number]] 06/27/2019 Counseling regarding advanced directives and go*10/29/2021 09/23/2023 Chronic left-sided thoracic back pain [M54.6, G*05/23/2022 Nonrheumatic mitral valve regurgitation [I34.0] 02/28/2023 Hypogammaglobulinemia (HCC) [D80.1] 03/24/2023 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 Normal [facility] CBC W Auto Differential pane l (Bld)on 10-24-2024 Basophils (Bld) [#/Vol] 0.08 10*3/uL Normal <0.11 [facility] Comment on above: Order Comment: Speci men Type: BLOOD SPECIMENOrdering Facility: [facility] Address: [address] [place], [place] [address] [address] Performed By: #### 5 5345-8 ####[facility] ALWNCLIA [id number] [place] [address] [place] Basophils/100 WBC (Bld) 2.5 % Normal [facility] Comment on above: Order Comment: Speci men Type: BLOOD SPECIMENOrdering Facility: [facility] Address: [address] [place] [address] Performed By: #### 5 7021-8 ####[facility] ALYUCCA VALLEYRAYMONLIA [id number] [place] [address] [place] Differential cell count method Nom (Bld) Auto Normal [facility] Comment on above: Order Comment: Speci men Type: BLOOD SPECIMENOrdering Facility: [facility] Address: [address] [place] [address] Performed By: #### 5 7021-8 ####[facility]ENTERRAYMONPERCYA [id number] [place] [address] [place] Eosinophils (Bld) [#/Vol] 0.30 10*3/uL Normal <0.46 [facility] Comment on above: Order Comment: Speci men Type: BLOOD SPECIMENOrdering Facility: [facility] Address: [address] [place] [address] Performed By: #### 5 7021-8 ####[facility] SHAWLIA [id number] [place] [address] [place] Eosinophils/100 WBC (Bld) 9.3 % Normal [facility] Comment on above: Order Comment: Speci men Type: BLOOD SPECIMENOrdering Facility: [facility] Address: [address] [place] [address] Performed By: #### 5 7021-8 ####[facility]ENTERNCLIA [id number] [place] [address] [place] Erythrocyte distribution width (RBC) [Ratio] 12.0 % Normal 11.5-15.0 [facility] Comment on above: Order Comment: Speci men Type: BLOOD SPECIMENOrdering Facility: [facility] Address: [address] [place] [address] Performed By: #### 5 7021-8 ####[facility]ERNCCENTR[facility] [id number] [place] [address] [place] Hematocrit (Bld) [Volume fraction] 40.3 % Normal 36.0-46.0 [facility] Comment on above: Order Comment: Speci men Type: BLOOD SPECIMENOrdering Facility: [facility] Address: [address] [place] [address] Performed By: #### 5 7021-8 ####[facility]CCEN[facility] [id number] [place] [address] [place] Hemoglobin (Bld) [Mass/Vol] 13.3 g/dL Normal 11.5-15.5 [facility] Comment on above: Order Comment: Speci men Type: BLOOD SPECIMENOrdering Facility: [facility] Address: [address] [place] [address] Performed By: #### 5 7021-8 ####[facility] [id number] [place] [address] [place] Immature granulocytes (Bld) [#/Vol] 10*3/uL Normal <0.10 [facility] Comment on above: Order Comment: Speci men Type: BLOOD SPECIMENOrdering Facility: [facility] Address: [address] [place] [address] Performed By: #### 5 7021-8 ####[facility] [id number] [place] [address] [place] Immature granulocytes/100 WBC (Bld) 0.0 % Normal [facility] Comment on above: Order Comment: Speci men Type: BLOOD SPECIMENOrdering Facility: [facility] Address: [address] [place] [address] Performed By: #### 5 7021-8 ####[facility] MILLWNCLIA [id number] [place] [address] [place] Lymphocytes (Bld) [#/Vol] 0.72 10*3/uL Low 1.00-4.00 [facility] Comment on above: Order Comment: Speci men Type: BLOOD SPECIMENOrdering Facility: [facility] Address: [address] [place] [address] Performed By: #### 5 7021-8 ####[facility]ENTERNCLIA [id number] [place] [address] [place] Lymphocytes/100 WBC (Bld) 22.3 % Normal [facility] Comment on above: Order Comment: Speci men Type: BLOOD SPECIMENOrdering Facility: [facility] Address: [address] [place] [address] Performed By: #### 5 7021-8 ####[facility]ENTERNCLIA [id number] [place] [address] [place] MCH (RBC) [Entitic mass] 30.0 pg Normal 26.0-34.0 [facility] Comment on above: Order Comment: Speci men Type: BLOOD SPECIMENOrdering Facility: [facility] Address: [address] [place] [address] Performed By: #### 5 7021-8 ####[facility]ENTERNCLIA [id number] [place] [address] [place] MCHC (RBC) [Mass/Vol] 33.0 g/dL Normal 30.5-36.[address] [facility] Comment on above: Order Comment: Speci men Type: BLOOD SPECIMENOrdering Facility: [facility] Address: [address] [place] [address] Performed By: #### 5 7021-8 ####[facility]ENTERNCLIA [id number] [place] [address] [place] MCV (RBC) [Entitic vol] 91.0 fL Normal 80.0-100.0 [facility] Comment on above: Order Comment: Speci men Type: BLOOD SPECIMENOrdering Facility: [facility] Address: [address] [place] [address] Performed By: #### 5 7021-8 ####[facility] [id number] [place] [address] [place] Monocytes (Bld) [#/Vol] 0.31 10*3/uL Normal <0.87 [facility] Comment on above: Order Comment: Speci men Type: BLOOD SPECIMENOrdering Facility: [facility] Address: [address] [place] [address] Performed By: #### 5 7021-8 ####[facility] [id number] [place] [address] [place] Monocytes/100 WBC (Bld) 9.6 % Normal [facility] Comment on above: Order Comment: Speci men Type: BLOOD SPECIMENOrdering Facility: [facility] Address: [address] [place] [address] Performed By: #### 5 7021-8 ####[facility] [id number] [place] [address] [place] Neutrophils (Bld) [#/Vol] 1.82 10*3/uL Normal 1.45-7.50 [facility] Comment on above: Order Comment: Speci men Type: BLOOD SPECIMENOrdering Facility: [facility] Address: [address] [place] [address] Performed By: #### 5 7021-8 ####[facility] [id number] [place] [address] [place] Neutrophils/100 WBC (Bld) 56.3 % Normal [facility] Comment on above: Order Comment: Speci men Type: BLOOD SPECIMENOrdering Facility: [facility] Address: [address] [place] [address] Performed By: #### 5 7021-8 ####[facility]ERNCCEN[facility] [id number] [place] [address] [place] Nucleated RBC (Bld) [#/Vol] 10*3/uL Normal <0.01 [facility] Comment on above: Order Comment: Speci men Type: BLOOD SPECIMENOrdering Facility: [facility] Address: [address] [place] [address] Performed By: #### 5 7021-8 ####[facility] [id number] [place] [address] [place] Nucleated RBC/100 WBC (Bld) [Ratio] 0.0 /100 WBC Normal [facility] Comment on above: Order Comment: Speci men Type: BLOOD SPECIMENOrdering Facility: [facility] Address: [address] [place] [address] Performed By: #### 5 7021-8 ####[facility] [id number] [place] [address] [place] Platelet mean volume (Bld) [Entitic vol] 10.1 fL Normal 9.0-12.7 [facility] Comment on above: Order Comment: Speci men Type: BLOOD SPECIMENOrdering Facility: [facility] Address: [address] [place] [address] Performed By: #### 5 7021-8 ####[facility] [id number] [place] [address] [place] Platelets (Bld) [#/Vol] 185 10*3/uL Normal 150-400 [facility] Comment on above: Order Comment: Speci men Type: BLOOD SPECIMENOrdering Facility: [facility] Address: [address] [place] [address] Performed By: #### 5 7021-8 ####[facility] ALYUCCA VALLEYNCLIA [id number] [place] [address] [place] RBC (Bld) [#/Vol] 4.43 10*6/uL Normal 3.90-5.20 [facility] Comment on above: Order Comment: Speci men Type: BLOOD SPECIMENOrdering Facility: [facility] Address: [address] [place] [address] Performed By: #### 5 7021-8 ####[facility]ENTERNCLIA [id number] [place] [address] [place] WBC (Bld) [#/Vol] 3.23 10*3/uL Low 3.70-11.00 [facility] Comment on above: Order Comment: Speci men Type: BLOOD SPECIMENOrdering Facility: [facility] Address: [address] [place] [address] Performed By: #### 5 7021-8 ####[facility]ENTERNCLIA [id number] [place] [address] [place] Comprehensive metabolic 2000 panelon 10-24-2024 Albumin [Mass/Vol] 4.0 g/dL Normal 3.9-4.9 [facility] Comment on above: Order Comment: Speci men Type: BLOOD SPECIMENOrdering Facility: [facility] Address: [address] [place] [address] Performed By: #### 2 4323-8 ####[facility]ENTERNCLIA [id number] [place] [address] [place] ALP [Catalytic activity/Vol] 85 U/L Normal 34-123 [facility] Comment on above: Order Comment: Speci men Type: BLOOD SPECIMENOrdering Facility: [facility] Address: [address] [place] [address] Performed By: #### 2 4323-8 ####[facility]DA MILLTOWNCLIA [id number] [place] [address] [place] ALT [Catalytic activity/Vol] 12 U/L Normal 7-38 [facility] Comment on above: Order Comment: Speci men Type: BLOOD SPECIMENOrdering Facility: [facility] Address: [address] [place] [address] Performed By: #### 2 4323-8 ####[facility] MILLTOWNCLIA [id number] [place] [address] [place] Anion gap [Moles/Vol] 8 mmol/L Normal 8-[address] [facility] Comment on above: Order Comment: Speci men Type: BLOOD SPECIMENOrdering Facility: [facility] Address: [address] [place] [address] Performed By: #### 2 4323-8 ####[facility] MILLWNCLIA [id number] [place] [address] [place] AST [Catalytic activity/Vol] 16 U/L Normal 13-35 [facility] Comment on above: Order Comment: Speci men Type: BLOOD SPECIMENOrdering Facility: [facility] Address: [address] [place] [address] Performed By: #### 2 4323-8 ####[facility] SHAW MILLTOWNCLIA [id number] [place] [address] [place] Bilirubin [Mass/Vol] 0.4 mg/dL Normal 0.2-1.[address] [facility] Comment on above: Order Comment: Speci men Type: BLOOD SPECIMENOrdering Facility: [facility] Address: [address] [place] [address] Performed By: #### 2 4323-8 ####[facility] SHAW MILLWNCLIA [id number] [place] [address] [place] Calcium [Mass/Vol] 9.9 mg/dL Normal 8.5-10.2 [facility] Comment on above: Order Comment: Speci men Type: BLOOD SPECIMENOrdering Facility: [facility] Address: [address] [place] [address] Performed By: #### 2 4323-8 ####[facility] [id number] [place] [address] [place] Chloride [Moles/Vol] 98 mmol/L Normal 98-[address] [facility] Comment on above: Order Comment: Speci men Type: BLOOD SPECIMENOrdering Facility: [facility] Address: [address] [place] [address] Performed By: #### 2 4323-8 ####[facility]CLI [id number] [place] [address] [place] CO2 [Moles/Vol] 30 mmol/L Normal 22-30 [facility] Comment on above: Order Comment: Speci men Type: BLOOD SPECIMENOrdering Facility: [facility] Address: [address] [place] [address] Performed By: #### 2 4323-8 ####[facility] SHAWLIA [id number] [place] [address] [place] Creatinine [Mass/Vol] 0.98 mg/dL High 0.58-0.[address] [facility] Comment on above: Order Comment: Speci men Type: BLOOD SPECIMENOrdering Facility: [facility] Address: [address] [place] [address] Performed By: #### 2 4323-8 ####[facility]CLIA [id number] [place] [address] [place] Creatinine and Glomerular filtration rate.predicted panel (S/P/Bld) 56 mL/min/1.73m??? Low >=60 [facility] Comment on above: Order Comment: Speci men Type: BLOOD SPECIMENOrdering Facility: [facility] Address: [address] [id number] Result Comment: Kristel mated Glomerular Filtration Rate (eGFR) is calculated using the 2020 CKD-EPI creatinine equation. This equation utilizes serum creatinine, sex, and age as parameters. The creatinine assay has traceable calibration to isotope dilution-mass spectrometry. Refer to KDIGO guidelines for clinical interpretation. In patients with unstable renal function, e.g. those with acute kidney injury, the eGFR may not accurately reflect actual GFR. Performed By: #### 2 4323-8 ####[facility] [id number] [place] [address] [place] Glucose [Mass/Vol] 90 mg/dL Normal 74-99 [facility] Comment on above: Order Comment: Speci sharonda Type: BLOOD SPECIMENOrdering Facility: [facility] Address: [address] [place] [address] Result Comment: The [place] Diabetes Association (ADA) provides guidance for cutoff values for fasting glucose and random glucose. The ADA defines fasting as no caloric intake for at least 8 hours. Fasting plasma glucose results between 100 to 125 mg/dL indicate increased risk for diabetes (prediabetes). Fasting plasma glucose results greater than or equal to 126 mg/dL meet the criteria for diagnosis of diabetes. In the absence of unequivocal hyperglycemia, results should be confirmed by repeat testing. In a patient with classic symptoms of hyperglycemia or hyperglycemic crisis, random plasma glucose results greater than or equal to 200 mg/dL meet the criteria for diagnosis of diabetes. Reference: Standards of Medical Care in Diabetes 2016, [place] Diabetes Association. Diabetes Care. 2016.39(Suppl 1). Performed By: #### 2 4323-8 ####[facility] [id number] [place] [address] [place] Potassium [Moles/Vol] 4.1 mmol/L Normal 3.7-5.[address] [facility] Comment on above: Order Comment: Speci men Type: BLOOD SPECIMENOrdering Facility: [facility] Address: [address] [id number] Performed By: #### 2 4323-8 ####[facility] SHAW MILLWNCLIA [id number] [place] [address] [place] Protein [Mass/Vol] 6.4 g/dL Normal 6.3-8.0 [facility] Comment on above: Order Comment: Speci men Type: BLOOD SPECIMENOrdering Facility: [facility] Address: [address] [place] [address] Performed By: #### 2 4323-8 ####[facility]ALTHWNCLIA [id number] [place] [address] [place] Sodium [Moles/Vol] 136 mmol/L Normal 136-144 [facility] Comment on above: Order Comment: Speci men Type: BLOOD SPECIMENOrdering Facility: [facility] Address: [address] [place] [address] Performed By: #### 2 4323-8 ####[facility] SHAWLIA [id number] [place] [address] [place] Urea nitrogen [Mass/Vol] 19 mg/dL Normal 7-21 [facility] Comment on above: Order Comment: Speci men Type: BLOOD SPECIMENOrdering Facility: [facility] Address: [address] [place] [address] Performed By: #### 2 4323-8 ####[facility]CLIA [id number] [place] [address] [place] Lipid 1996 panelon 5 Cholesterol [Mass/Vol] 165 mg/dL Normal <[address] [facility] Comment on above: Order Comment: Speci men Type: BLOOD SPECIMENOrdering Facility: [facility] Address: [address] [place] [address] Result Comment: <200 mg/dL, Desirable 200-239 mg/dL, Borderline high >239 mg/dL, High Performed By: #### 2 4331-1 ####[facility]ATORYCLIA [id number] [place], [place] [address] [place] [address] [id number] [place]#### 3016-3 ####[facility]ATORYCLIA [id number] [address] STATES [facility] Cholesterol in HDL [Mass/Vol] 81 mg/dL Normal >39 [facility] Comment on above: Order Comment: Speci men Type: BLOOD SPECIMENOrdering Facility: [facility] Address: [address] [place] [address] Result Comment: 40-5 9 mg/dL, Acceptable >59 mg/dL, High: Negative risk factor for coronary heart disease <40 mg/dL, Low: Positive risk factor for coronary heart disease Performed By: #### 2 4331-1 ####[facility]ORATORYCLIA [id number] [address] [id number] [place] [address] [place]#### 3016-3 ####[facility]ORATORYCLIA [id number] [address] STATES [facility] Cholesterol in LDL [Mass/Vol] 71 mg/dL Normal <100 [facility] Comment on above: Order Comment: Speci men Type: BLOOD SPECIMENOrdering Facility: [facility] Address: [address] [place] [address] Result Comment: <100 mg/dL, Optimal 100-129 mg/dL, Near optimal/above optimal 130-159 mg/dL, Borderline high 160-189 mg/dL, High >189 mg/dL, Very high Secondary prevention optimal LDL Cholesterol levels are recommended to be < 70 mg/dL Performed By: #### 2 4331-1 ####[facility]ATORYCLIA [id number] [address] [id number] [address] [place]#### 3016-3 ####[facility]ORYCLIA [id number] [address] STATES [facility] Cholesterol in LDL/Cholesterol in HDL [Mass ratio] 0.88 {ratio} Normal <2.54 [facility] Comment on above: Order Comment: Speci men Type: BLOOD SPECIMENOrdering Facility: [facility] Address: [address] [place] [address] Result Comment: Espinoza crawford: 1. National Cholesterol Education Program ATP III Guideline At-A-Glance Quick Desk Reference: National Heart, Lung, and Blood [place]. National Institutes of Health. 2001: NIH Publication No. 01-3305. 2. An International Atherosclerosis Society position paper: global recommendations for the management of dyslipidemia: executive summary, Atherosclerosis. 2014: 232(2):410-413. Performed By: #### 2 4331-1 ####[facility]ATORYCLIA [id number] [address] [id number] [place] [address] [place]#### 3016-3 ####[facility]ORATORYCLIA [id number] [address] STATES [facility] Cholesterol in VLDL [Mass/Vol] 13 mg/dL Normal <30 [facility] Comment on above: Order Comment: Speci men Type: BLOOD SPECIMENOrdering Facility: [facility] Address: [address] [place] [address] Performed By: #### 2 4331-1 ####[facility]ORYCLIA [id number] [address] [id number] [place] [address] [place]#### 3016-3 ####[facility]ATORYCLIA [id number] [address] [place] Cholesterol non HDL [Mass/Vol] 84 mg/dL Normal <130 [facility] Comment on above: Order Comment: Speci men Type: BLOOD SPECIMENOrdering Facility: [facility] Address: [address] [place] [address] Result Comment: <130 mg/dL, Optimal 130-159 mg/dL, Near optimal/above optimal 160-189 mg/dL, Borderline high 190-219 mg/dL, High >219 mg/dL, Very high Secondary prevention optimal non HDL Cholesterol levels are recommended to be <100 mg/dL Performed By: #### 2 4331-1 ####[facility]ATORYCLIA [id number] [address] [id number] [place] [address] OF [place]#### 3016-3 ####[facility]ATORYCLIA [id number] [address] STATES [facility] Cholesterol.total/Chol esterol in HDL [Mass ratio] 2.04 {ratio} Normal <5.10 [facility] Comment on above: Order Comment: Speci men Type: BLOOD SPECIMENOrdering Facility: [facility] Address: [address] [place] [address] Performed By: #### 2 4331-1 ####[facility]ORYCLIA [id number] [address] [id number] [place] [address] [place]#### 3016-3 ####[facility]ORYCLIA [id number] [address] FASTING TIME 15 hrs Normal [facility] Comment on above: Order Comment: Speci men Type: BLOOD SPECIMENOrdering Facility: [facility] Address: [address] [place] [address] Performed By: #### 2 4331-1 ####[facility]ORYCLIA [id number] [address] [id number] [address] [place]#### 3016-3 ####[facility]ORYCLIA [id number] [place] [address] [place] [facility] Triglyceride [Mass/Vol] 63 mg/dL Normal <150 [facility] Comment on above: Order Comment: Speci men Type: BLOOD SPECIMENOrdering Facility: [facility] Address: [address] [place] [address] Result Comment: <150 mg/dL, Normal 150-199 mg/dL, Borderline high 200-499 mg/dL, High >499 mg/dL, Very high Performed By: #### 2 4331-1 ####[facility]ORYCLIA [id number] [address] OF [facility] [id number] [place] [address] [place]#### 3016-3 ####[facility]ATORYCLIA [id number] [address] [place] TSH SerPl-aCncon 10-24-2024 TSH Qn 2.040 m[IU]/L Normal 0.270-4.20 0 [facility] Comment on above: Order Comment: Speci men Type: BLOOD SPECIMENOrdering Facility: [facility] Address: [address] [place] [address] Performed By: #### 2 4331-1 ####[facility]ORYCLIA [id number] [address] OF [facility] [id number] [address] OF [place]#### 3016-3 ####[facility]ORYCLIA [id number] [address] [place] CNOV[facility] 10-[facility] VASILE CHINYERE ALBERTS ([id number]) 1935 F Date Time Provider Department 10/21/24 10:40 AM JEFFY FIELDS During your visit today, we recorded the following information about you: Pulse Blood pressure Weight Height 58/minute 138/58 49.9 kg 1.549 m Jeffy Fields MD 10/21/2024 11:29 AM Signed Patient presents with: 6 Month Exam HPI: Patient presents today for office visit for routine 6 month follow up. HLD: No myalgias. HTN: Monitors BP occ. Mentions one episode on 10/08/24 where her BP was 116/45. Refers to feeling strange that day. States she knew something was not right. No dizziness, chest pain or shortness of breath but different than she normally feels. Did not check it again that day. Eventually started to feel better. Refers to being able to think and move better throughout the day. Had sinus issues before that. I wonder if she might have had a viral illness. Red flags for re-assessment reviewed with patient in detail. Denies chest pain and shortness of breath. Denies headaches and dizziness. Denies palpitations and syncope. Denies edema. THYROID: No energy, hair or skin changes. Continues on Omeprazole Stable. Denies any bloody or black stool. No GI concerns. RLS:is better than it has been. Meds are working well. Still seeing Dr Harper nephernesto and sleep med. MEDICATIONS: Current Outpatient Medications Medication Sig pregabalin (LYRICA) 50 mg capsule 1 capsule at noon, bedtime, and midnight rOPINIRole (REQUIP) 0.5 mg tablet one tablet at noon and 4PM, 1 tablets at 8PM and 1 tablet at midnight. levothyroxine (SYNTHROID) 50 mcg tablet Take 1 tablet by mouth once daily 6 out of 7 days per week. losartan (COZAAR) 50 mg tablet Take 1 tablet by mouth once daily. omeprazole (PRILOSEC) 20 mg capsule Take one tablet by mouth q day simvastatin (ZOCOR) 40 mg tablet Take 1 tablet by mouth daily at bedtime. polyethylene glycol 3350 (MIRALAX) 17 gram/dose powder Take 17 g by mouth once daily. Dissolve dose in 4 - 8 ounces of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 Onset Heart Mother massive HI, in her 70's other (Other) Father unknown Alzheimer's Disease Sister Cancer Maternal Grandmother GI CANCER Heart Maternal Aunt Diabetes Maternal Aunt Heart Maternal Uncle Colon Cancer No Family History Social History Tobacco Use Smoking status: Never Smokeless tobacco: Never Vaping Use Vaping status: Never Used Substance Use Topics Alcohol use: No Drug use: No Objective Physical Exam Vitals and nursing note reviewed. Constitutional: Appearance: Normal appearance. Cardiovascular: Rate and Rhythm: Normal rate and regular rhythm. Heart sounds: Normal heart sounds. Pulmonary: Effort: Pulmonary effort is normal. No respiratory distress. Breath sounds: Normal breath sounds. No wheezing or rales. Abdominal: General: There is no distension. Palpations: Abdomen is soft. There is no mass. Tenderness: There is no abdominal tenderness. There is no right CVA tenderness, left CVA tenderness or guarding. Musculoskeletal: General: Tenderness present. No swelling or deformity. Lumbar back: Tend (more content not included)... Normal [facility] No Panel Informationon 06-28 Radiology Study observation (narrative) [facility] UA DIP, URINE (POC)on 2023 BILIRUBIN UA (POCT) Negative Negative [facility] CLARITY UA (POCT) Clear [facility] COLOR UA (POCT) Yellow [facility] GLUCOSE UA (POCT) Negative Negative mg/dL [facility] Hemoglobin Ql (U) Moderate Abnormal Negative [facility] Interpretation and review of laboratory results Abnormal [facility] KETONE UA (POCT) Negative Negative mg/dL [facility] LEUKOCYTES UA (POCT) Small Abnormal Negative [facility] NITRITE UA (POCT) Negative Negative [facility] PH UA (POCT) 6.5 4.5 - 8.0 [facility] Protein Ql (U) Negative Negative mg/dL [facility] SPECIFIC GRAVITY UA (POCT) 1.010 1.005 - 1.030 [facility] UROBILINOGEN UA (POCT) 0.2 Jolie l E.U./dL [facility] Location:[facility], [address] [place] [address], [place], [place], [id number] [place] [address] POINT OF CARE [facility] XR LUMBAR 3V AP/LAT/L5-S1on 06-28-2024 XR LUMBAR 3V AP/LAT/L5-S1 * * *Final Report* * * DATE OF EXAM: Jun 28 2024 10:53AM WOX 5228 - XR LUMBAR 3V AP/LAT/L5-S1 / PROCEDURE REASON: Acute midline low back pain without sciatica * * * * Physician Interpretation * * * * X-ray lumbosacral spine, AP, lateral and L5-S1 views Indication: Low back pain Comparison: None Counting reference: Lumbosacral junction. For the purposes of this report, L5S1 is considered the last lumbar type disc space and L4-5 is considered the level of the iliac crest. No acute fracture. Scoliosis of the lumbar spine with a leftward convexity. Minimal anterolisthesis of L4 on L5.. Mild intervertebral disc space narrowing at L3-4 and L4-5. Sacroiliac joint space narrowing. Vascular calcifications are noted. IMPRESSION: NO EVIDENCE OF FRACTURE Lance Crewmember: TAMMIE Transcribe Date/Time: Jun 28 2024 11:06A Dictated by : IDALIA BOOGIE MD This examination was interpreted and the report reviewed and electronically signed by: IDALIA BOOGIE MD on Jun 28 2024 11:08AM EST [id number] Normal [facility] XR Lumbar spine 3 Viewson IMPRESSION: NO EVIDE NCE OF FRACTURE Lance Crewmember: PSCB Transcribe Date/Time: Jun 28 2024 11:06A Dictated by : IDALIA BOOGIE MD This examination was interpreted and the report reviewed and electronically signed by: IDALIA BOOGIE MD on Jun 28 2024 11:08AM EST DIVISION OF RADIOLOGY * * *Final Report* * * DATE OF EXAM: Jun 28 2024 10:53AM WOX 5228 - XR LUMBAR 3V AP/LAT/L5-S1 / PROCEDURE REASON: Acute midline low back pain without sciatica * * * * Physician Interpretation * * * * X-ray lumbosacral spine, AP, lateral and L5-S1 views Indication: Low back pain Comparison: None Counting reference: Lumbosacral junction. For the purposes of this report, L5S1 is considered the last lumbar type disc space and L4-5 is considered the level of the iliac crest. No acute fracture. Scoliosis of the lumbar spine with a leftward convexity. Minimal anterolisthesis of L4 on L5.. Mild intervertebral disc space narrowing at L3-4 and L4-5. Sacroiliac joint space narrowing. Vascular calcifications are noted. DIVISION OF RADIOLOGY [facility], [facility] * * *Final Report* * * DATE OF EXAM: Jun 28 2024 10:53AM WOX 5228 - XR LUMBAR 3V AP/LAT/L5-S1 / PROCEDURE REASON: Acute midline low back pain without sciatica * * * * Physician Interpretation * * * * X-ray lumbosacral spine, AP, lateral and L5-S1 views Indication: Low back pain Comparison: None Counting reference: Lumbosacral junction. For the purposes of this report, L5S1 is considered the last lumbar type disc space and L4-5 is considered the level of the iliac crest. No acute fracture. Scoliosis of the lumbar spine with a leftward convexity. Minimal anterolisthesis of L4 on L5.. Mild intervertebral disc space narrowing at L3-4 and L4-5. Sacroiliac joint space narrowing. Vascular calcifications are noted. IMPRESSION IMPRESSION: NO EVIDENCE OF FRACTURE Lance Crewmember: [facility] Transcribe Date/Time: Jun 28 2024 11:06A Dictated by : IDALIA BOOGIE MD This examination was interpreted and the report reviewed and electronically signed by: IDALIA BOOGIE MD on Jun 28 2024 11:08AM EST [facility] XR Lumbar spine 3 ViewsOrder ed By: [facility] Provider on 06-28-2024 [facility] XR PELVIS 1V APon 06-28-2024 XR PELVIS 1V AP * * *Final Report* * * DATE OF EXAM: Jun 28 2024 10:53AM WOX 5239 - XR PELVIS 1V AP / PROCEDURE REASON: Pelvic pain * * * * Physician Interpretation * * * * EXAMINATION: XR PELVIS 1V AP CLINICAL HISTORY: Pelvic pain Technique: XR PELVIS 1V AP -- NOT APPLICABLE with 1 views on 1 images Comparison: None RESULT: No acute fracture or dislocation. Hip joint spaces are maintained. Vascular calcifications are noted. IMPRESSION: No acute osseous abnormality Lance Crewmember: PSCB Transcribe Date/Time: Jun 28 2024 11:08A Dictated by : IDALIA BOOGIE MD This examination was interpreted and the report reviewed and electronically signed by: IDALIA BOOGIE MD on Jun 28 2024 11:11AM EST [id number] Normal [facility] XR Pelvis APon 06-28-2024 IMPRESSION: No acute osseous abnormality Lance Crewmember: PSC Transcribe Date/Time: Jun 28 2024 11:08A Dictated by : IDALIA BOOGIE MD This examination was interpreted and the report reviewed and electronically signed by: IDALIA BOOGIE MD on Jun 28 2024 11:11AM EST DIVISION OF RADIOLOGY * * *Final Report* * * DATE OF EXAM: Jun 28 2024 10:53AM WOX 5239 - XR PELVIS 1V AP / PROCEDURE REASON: Pelvic pain * * * * Physician Interpretation * * * * EXAMINATION: XR PELVIS 1V AP CLINICAL HISTORY: Pelvic pain Technique: XR PELVIS 1V AP -- NOT APPLICABLE with 1 views on 1 images Comparison: None RESULT: No acute fracture or dislocation. Hip joint spaces are maintained. Vascular calcifications are noted. DIVISION OF RADIOLOGY Provider, [facility] - 06/28/2024 * * *Final Report* * * DATE OF EXAM: Jun 28 2024 10:53AM WOX 5239 - XR PELVIS 1V AP / PROCEDURE REASON: Pelvic pain * * * * Physician Interpretation * * * * EXAMINATION: XR PELVIS 1V AP CLINICAL HISTORY: Pelvic pain Technique: XR PELVIS 1V AP -- NOT APPLICABLE with 1 views on 1 images Comparison: None RESULT: No acute fracture or dislocation. Hip joint spaces are maintained. Vascular calcifications are noted. IMPRESSION IMPRESSION: No acute osseous abnormality Lance Crewmember: [facility] Transcribe Date/Time: Jun 28 2024 11:08A Dictated by : IDALIA BOOGIE MD This examination was interpreted and the report reviewed and electronically signed by: IDALIA BOOGIE MD on Jun 28 2024 11:11AM EST [facility] CNOVon 06-20-2024 CNOV Office Visit (SLEWST ) CHINYERE KRISHNA ([id number]) 1935 F Date Time Provider Department 06/20/24 10:20 AM JEFFY CLARK JR During your visit today, we recorded the following information about you: Pulse Blood pressure Weight 80/minute 151/70 49 kg Reynaldo Borden LPN 06/20/2024 10:51 AM Signed 06/14/2024 [facility] Physical Health Summary Physical health: Good Everyday physical activity, ability: Completely Fatigue: Moderate Pain level: 4 General health: Good Social activities/roles, ability: Good Physical Health T-Score 44.9 (Good) Physical Health Percentile 31 PROMIS Global Health Mental Health Summary Quality of life: Good Mental health (mood,thinking): Good Social satisfaction: Good Emotional problems (anxious,depressed): Sometimes Mental Health T-Score 43.5 (Good) Mental Health Percentile 26 PHQ-9 Score: 4(Minimal Depression) PHQ-9 Self-Harm: Not at all Percentiles provide an indication of how a patient's score ranks in relation to the [place] general population. > 31st percentile is within normal limits or better *< 31st percentile is at least ? SD worse than population, which may be clinically relevant < 16th percentile is at least 1 SD worse than population and warrants attention Jeffy Clark Jr., MD 06/20/2024 10:51 AM Signed ESTABLISHED PATIENT VISIT CHIEF COMPLAINT: Follow Up HISTORY OF PRESENT ILLNESS: Chinyere Alberts is a 89 year old female, with a PMH significant for and per last visit note of 12/14/23: Rls (restless legs syndrome) (primary encounter diagnosis) Dream enactment behavior Abnormal finding of blood chemistry, unspecified Vitamin d deficiency Chinyere Alberts is an 88 year old female with RLS and dream enactment behavior. At her last visit we discontinued the clonazepam she was taking for KIMBERLEE due to balance issues. She reports she no longer has balance problems. She did initially have a flare of RLS but that resolved. She did again have a flare of RLS a couple of weeks ago, had symptoms 2 nights in a row. PMH of HTN, HLD, GERD, CKD, arthritis, osteoporosis. PLAN: Continue ropinirole 0.5 mg at noon, 430 pm, 830 pm and MN for RLS Continue pregabalin 50 mg at noon, HS, and MN for RLS Check labs for iron stores and vit D Continue melatonin for KIMBERLEE, she is taking 1.5 mg at 830 pm and at MN. Hasn't had any KIMBERLEE, did have one episode of hollering in her sleep. Latest Ref Rng AND Units 12/14/2023 01/16/2022 06/03/2021 07/06/2020 05/18/2019 04/19/2019 10/18/2018 08/03/2018 Labs Iron 41 - 186 ug/dL 94 48 71 - 98 57 - - Ferritin 14.7 - 205.1 ng/mL 108.0 - 95.5 - 82.8 - - - TIBC 232 - 386 ug/dL 322 304 294 - 369 341 - - Vitamin D 25 Hydroxy 31.0 - 80.0 ng/mL 59.8 - - 38.0 - - 36.3 42.3 Pt states was doing well until last week. Not acting out dreams on current melatonin dosing. but legs are starting to jerk again. States about 2-3 hours after taking night time medicine (referring to the 830PM dose). Will take MN dose, and that will then control her through the night. Pt reports no new medications in the last couple weeks. States has been eating mor carbs of late. Pt worried blood sugars going up again. No side effects from medications. Pt really falls asleep about 10PM with pt reading in bed. No electronics. Pt upset as she typically wakes to start the day spontaneously at 530AM - states wakes and reads and prays at this hour. On later discussion, pt reports no longer taking melatonin and symptoms of dream enactment still controlled. Tremors unchanged. Pt not wanting further treatment. REVIEW OF SYSTEMS GENERAL:No weight loss, malaise or fevers. HEENT:Negative for frequent or significant headaches, No changes in hearing or vision, no nose bleeds or other nasal problems NECK:Negative for lumps, goiter, pain and significant neck swelling RESPIRATORY: Negative for cough, wheezing or shortness of breath. CARDIOVASCULAR: Negative for chest pain, leg swelling or palpitations. GASTROINTESTINAL: Negative for abdominal discomfort, blood in stools or black stools or change in bowel habits GENITOURINARY: No history of dysuria, frequency or incontinence MUSCULOSKELETAL: Negative for joint pain or swelling, back pain or muscle pain. NEUROLOGIC:Negative for focal numbness or weakness, headaches and dizziness or syncope, vision changes, speech/languag changes - EXCEPT that as per HPI above. SKIN:Negative for lesions, rash, and itching. LAB/IMAGING: Those performed since patient's last visit have been reviewed. WBC (k/uL) Date Value 03/23/2024 4.94 RBC (m/uL) Date Value 03/23/2024 4.69 Hemoglobin (g/dL) Date Value 03/23/2024 14.4 Hematocrit (%) Date Value 03/23/2024 43.4 MCV (fL) Date Value 03/23/2024 92.5 MCH (pg) Date Value 03/23/2024 30.7 MCHC (g/dL) Date Value (more content not included)... Normal [facility] SCREENINGon 06-10-2024 [facility] SCREENING * * *Final Report* * * DATE OF EXAM: Jun 10 2024 2:24PM [facility] 0581 - [facility] SCREENING / PROCEDURE REASON: Screening mammogram for breast cancer * * * * Physician Interpretation * * * * RESULT: [facility] [place] [address] HISTORY: Patient is 89 years old and is seen for screening and is asymptomatic in both breasts. Patient states no personal history of breast cancer. Patient states no personal history of other cancers. COMPARISON STUDIES: The present examination has been compared to prior imaging studies dated 08/10/2020 (mammogram), 08/12/2021 (mammogram) and 04/22/2023 (mammogram). MAMMOGRAM TECHNIQUE: The study was acquired using full field digital technology and interpreted from soft copy. Digital Breast Tomosynthesis (DBT) images were obtained and used to assist in the interpretation of this examination. Computer-aided detection was utilized by the radiologist in the interpretation of this examination. MAMMOGRAM FINDINGS: The breasts are heterogeneously dense, which may obscure small masses. No suspicious masses, calcifications or other abnormalities are seen in either breast. There are no significant changes from the prior study. IMPRESSION: There is no mammographic evidence of malignancy in either breast. A routine follow-up mammogram in 1 year is recommended. BI-RADS Category 1: Negative Interpreting Radiologist: Daniela Gaxiola M.D. Electronically signed on: 06/14/2024 Lance Crewmember: DONALD Transcribe Date/Time: Jun 10 2024 2:15P Dictated by: DANIELA GAXIOLA MD This examination was interpreted and the report reviewed and electronically signed by: DANIELA GAXIOLA MD on Jun 14 2024 5:16AM EST [id number] Normal [facility] CHINYERE KRISHNA ([id number]) 1935 F Date Time Provider Department 06/07/24 JEFFY FIELDS [facility] During your visit today, we recorded the following information about you: Yary Li LPN 06/07/2024 10:55 AM Signed Patient calling she is overdue for her screening mamm was due end of March. Patient has appt scheduled for Thursday and needs order. Pending order to file. Please advise Allergies As of Date: 06/07/2024 Noted Allergy Reaction ASA (SALICYLATES) 11/20/2005 Comments: ringing in ears FLONASE (FLUTICASONE) 11/05/2018 14 - Other: See Comments Comments: gets jittery GENTEAL PM (WHITE PETROLATUM-MINE*09/14/2023 9 - Itching SULFA (SULFONAMIDE ANTIBIOTICS) 11/20/2005 4 - Hives Date Reviewed: 04/19/2024 Reviewed by: Jennifer Broussard APRN.[employer] PROJECT DESIGNER - Fully Assessed Reason for Visit: Orders [681] Primary Visit Diagnosis:Screening mammogram for breast cancer [Z12.31] Order(s):[facility] SCREENING [[id number]] Order #: [id number] FUTURE Prescriptions as of 06/07/2024 - rOPINIRole (REQUIP) 0.5 mg tablet one tablet at noon and 4PM, 1 tablets at 8PM and 1 tablet at midnight. - mirtazapine (REMERON) 7.5 mg tablet Take 1 tablet by mouth daily at bedtime. - levothyroxine (SYNTHROID) 50 mcg tablet Take 1 tablet by mouth once daily 6 out of 7 days per week. - losartan (COZAAR) 50 mg tablet Take 1 tablet by mouth once daily. - omeprazole (PRILOSEC) 20 mg capsule Take one tablet by mouth q day - simvastatin (ZOCOR) 40 mg tablet Take 1 tablet by mouth daily at bedtime. - pregabalin (LYRICA) 50 mg capsule Take 1 capsule by mouth three times a day for 90 days. - polyethylene glycol 3350 (MIRALAX) 17 gram/dose powder Take 17 g by mouth once daily. Dissolve dose in 4 - 8 ounces of liquid and take as directed. - TURMERIC ORAL Take 1 capsule by mouth once daily. - calcium carbonate/vitamin D3 (CALCIUM WITH VITAMIN D ORAL) Take 1 tablet by mouth once daily. - IPRATROPIUM BROMIDE NASAL Use 1 Leburn in the nose twice daily. - hypromellose(GENTEAL MODERATE 0.3 % EYE DROPS) To left eye - ASPIRIN 81 MG TAB Take one (1) tablet daily . Problem List As Of Date 06/07/2024 Noted Resolved OSTEOPOROSIS POSTMENOPAUSAL [M81.0] 11/20/2005 Hypothyroidism [E03.9] 11/20/2005 BENIGN HYPERTENSION [I10] 11/20/2005 Restless legs syndrome [G25.81] 11/20/2005 Hyperlipidemia [E78.5] 11/20/2005 Esophageal reflux [K21.9] 11/20/2005 04/19/2019 URETHRITIS OTHER SPECIFIED [N34.1] 01/13/2006 05/12/2022 HYPERCALCEMIA [E83.52] 05/19/2006 05/24/2007 Anemia of chronic renal failure, stage 2 (mild)*05/19/2006 01/23/2023 Disorder of kidney and ureter [N28.9] 05/19/2006 05/12/2022 DIZZINESS AND GIDDINESS [R42] 02/11/2007 05/24/2007 Pain in limb [M79.609] 06/01/2007 09/30/2016 Enthesopathy of unspecified site [M77.9] 07/12/2007 04/19/2019 Paresthesia of skin [R20.2] 07/13/2007 06/05/2017 Stage 3 chronic kidney disease (HCC) [N18.30] 03/20/2009 Psoriatic arthritis (HCC) [L40.50] 02/13/2011 05/12/2022 Arthritis [M19.90] Trigger middle finger of left hand [M65.332] 09/22/2011 04/19/2019 Trigger index finger of right hand [M65.321] 09/22/2011 04/19/2019 Trigger thumb of right hand [M65.311] 09/22/2011 04/19/2019 Other psoriasis [L40.8] 03/03/2012 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] 03/03/2012 06/05/2017 Other seborrheic dermatitis [L21.8] 03/03/2012 04/20/2015 Xerosis cutis [L85.3] 03/03/2012 04/20/2015 Actinic skin damage [L57.8] 03/03/2012 04/20/2015 Trigger little finger of left hand [M65.352] 05/03/2012 04/19/2019 Trigger middle finger of right hand [M65.331] 05/31/2012 04/19/2019 Trigger ring finger of right hand [M65.341] 05/31/2012 04/19/2019 Irritated//Inflamed Seborrheic Keratosis [L82.0]07/06/2012 04/20/2015 Milial cyst [L72.0] 07/06/2012 04/20/2015 Other seborrheic keratosis [L82.1] 07/06/2012 04/20/2015 Solar lentigo [L81.4] 07/06/2012 04/20/2015 Milia [L72.0] 07/06/2012 04/20/2015 Anal burning [K62.89] 03/23/2013 04/20/2015 Perianal dermatitis [L30.9] 08/22/2013 05/12/2022 Perioral dermatitis [L71.0] 03/22/2014 03/31/2017 Acne rosacea [L71.9] 03/22/2014 05/12/2022 Postinflammatory skin changes [R23.8] 03/22/2014 04/20/2015 Trigger ring finger of left hand [M65.342] 06/05/2014 04/19/2019 Essential tremor [G25.0] 05/30/2015 Hyperlipidemia [E78.5] 10/19/2015 03/31/2017 Gastroesophageal reflux disease [K21.9] 08/20/2018 10/07/2018 Functional dyspepsia [K30] 08/20/2018 Epigastric pain [R10.13] 08/20/2018 04/19/2019 GERD (gastroesophageal reflux disease) [K21.9] 08/20/2018 Prediabetes [R73.03] 05/31/2019 Lung nodule < 6cm on CT [DTN8645] 06/27/2019 Counseling regarding advanced directives and go*10/29/2021 09/23/2023 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 Normal [facility] [employer] BREAST LTD LTon 06-07 [employer] BREAST Fugate.cl LT * * *Final Report* * * DATE OF EXAM: Jun 07 2024 9:12AM [facility] 0593 - [employer] BREAST [employer]ugate.cl LT / PROCEDURE REASON: Abnormal mammogram * * * * Physician Interpretation * * * * [facility] SPECIALTY [place] [id number] HISTORY: Patient is 89 years old and is seen for diagnostic exam and abnormal mammogram in the left breast at 3 o'clock. COMPARISON STUDIES: The present examination has been compared to prior imaging studies dated 12/01/2023 (mammogram) and 12/01/2023 (ultrasound). ULTRASOUND TECHNIQUE: Ultrasound of four quadrants, retroareolar region and axilla in the left breast using hand-held ultrasound technique was performed. Billings scale images of the real-time examination were reviewed. ULTRASOUND FINDINGS: There is an oval normal lymph node measuring 0.3 cm in the left breast at 3 o'clock. Finding has decreased in size. There is no sonographic evidence of malignancy. IMPRESSION: There is no sonographic evidence of malignancy. Return to screening mammogram in 1 year is recommended. BI-RADS Category 2: Benign Whole breast ultrasound is a supplemental breast cancer screening test to be used in addition to screening mammography and does not replace annual screening mammography. Interpreting Radiologist: Richard Wolff M.D. Electronically signed on: 06/07/2024 Lance Crewmember: DONALD Transcribe Date/Time: Jun 07 2024 9:02A Dictated by : RICHARD WOLFF MD This examination was interpreted and the report reviewed and electronically signed by: RICHARD WOLFF MD on Jun 07 2024 9:21AM EST [id number] Normal [facility] US Breast - left limitedon 1 IMPRESSION: There is no sonographic evidence of malignancy. Return to screening mammogram in 1 year is recommended. BI-RADS Category 2: Benign Whole breast ultrasound is a supplemental breast cancer screening test to be used in addition to screening mammography and does not replace annual screening mammography. Interpreting Radiologist: Richard Wolff M.D. Electronically signed on: 06/07/2024 Lance Crewmember: DONALD Transcribe Date/Time: Jun 07 2024 9:02A Dictated by : RICHARD WOLFF MD This examination was interpreted and the report reviewed and electronically signed by: RICHARD WOLFF MD on Jun 07 2024 9:21AM EST DIVISION OF RADIOLOGY * * *Final Report* * * DATE OF EXAM: Jun 07 2024 9:12AM [facility] 0593 - [place] US BREAST LTD LT / PROCEDURE REASON: Abnormal mammogram * * * * Physician Interpretation * * * * [place] [phone] HISTORY: Patient is 89 years old and is seen for diagnostic exam and abnormal mammogram in the left breast at 3 o'clock. COMPARISON STUDIES: The present examination has been compared to prior imaging studies dated 12/01/2023 (mammogram) and 12/01/2023 (ultrasound). ULTRASOUND TECHNIQUE: Ultrasound of four quadrants, retroareolar region and axilla in the left breast using hand-held ultrasound technique was performed. Billings scale images of the real-time examination were reviewed. ULTRASOUND FINDINGS: There is an oval normal lymph node measuring 0.3 cm in the left breast at 3 o'clock. Finding has decreased in size. There is no sonographic evidence of malignancy. DIVISION OF RADIOLOGY Provider, [facility] - 06/07/2024 * * *Final Report* * * DATE OF EXAM: Jun 07 2024 9:12AM [facility] 0593 - [place] BREAST LTD LT / PROCEDURE REASON: Abnormal mammogram * * * * Physician Interpretation * * * * [facility] SPECIALTY [place] [address] [place] [id number] HISTORY: Patient is 89 years old and is seen for diagnostic exam and abnormal mammogram in the left breast at 3 o'clock. COMPARISON STUDIES: The present examination has been compared to prior imaging studies dated 12/01/2023 (mammogram) and 12/01/2023 (ultrasound). ULTRASOUND TECHNIQUE: Ultrasound of four quadrants, retroareolar region and axilla in the left breast using hand-held ultrasound technique was performed. Billings scale images of the real-time examination were reviewed. ULTRASOUND FINDINGS: There is an oval normal lymph node measuring 0.3 cm in the left breast at 3 o'clock. Finding has decreased in size. There is no sonographic evidence of malignancy. IMPRESSION IMPRESSION: There is no sonographic evidence of malignancy. Return to screening mammogram in 1 year is recommended. BI-RADS Category 2: Benign Whole breast ultrasound is a supplemental breast cancer screening test to be used in addition to screening mammography and does not replace annual screening mammography. Interpreting Radiologist: Richard Wolff M.D. Electronically signed on: 06/07/2024 Lance Crewmember: DONALD Transcribe Date/Time: Jun 07 2024 9:02A Dictated by : RICHARD WOLFF MD This examination was interpreted and the report reviewed and electronically signed by: RICHARD WOLFF MD on Jun 07 2024 9:21AM EST [facility] Radiology Study observation (narrative) [facility] US Breast - left limitedOrde red By: [facility] Provider on 06-07-2024 [facility] CNOVon 04-19-2024 CNOV Office Visit (FAMPWS ) CHINYERE KRISHNA ([id number]) 1935 F Date Time Provider Department 04/19/24 10:00 AM JENNIFER BROUSSARD [facility] During your visit today, we recorded the following information about you: Pulse Blood pressure Weight 65/minute 118/40 49 kg Jennifer Broussard APRN.[facility] 04/19/2024 10:19 AM Signed This is a 89 year old female who presents today with: Patient presents with: Hypertension: Follow up HISTORY OF PRESENT ILLNESS: Chinyere Alberts is a 89 year old female. Patient presents with: Hypertension: Follow up HTN: Patient is compliant with meds Yes Monitors bp at home: Yes. DBP mostly in 50's- 31-80 Denies side effects: No. Chest pain: No. Dyspnea: No. Edema: No. Palpitations: Occ. Syncope: No. Headache: Yes. Had one this morning. That is rare for her. Dizziness: No. Some insomnia troubles. When she gets up to bathroom, she can't go back to sleep. Melatonin didn't help her sleep but did make her groggy next day. Echo showed stage I diastolic dysfunction. Wide pulse pressure. 1 + aortic stenosis. PAST MEDICAL HISTORY: PAST MEDICAL HISTORY 05/19/2006: Anemia of chronic renal failure, stage 2 (mild) No date: Arthritis Comment: left foot and right thumb No date: Diabetes mellitus (HCC) No date: Esophageal reflux No date: Essential hypertension, benign No date: Essential tremor No date: GERD (gastroesophageal reflux disease) No date: Heart murmur 08/25/2018: Hiatal hernia No date: Other and unspecified hyperlipidemia No date: Senile osteoporosis No date: Unspecified hypothyroidism PAST SURGICAL HISTORY No date: ADENOIDECTOMY PRIMARY Comment: Adenoidectomy No date: APPENDECTOMY Comment: open 11/28/2016: COLONOSCOPY Comment: Peace- diverticulosis. 10/15/2023: COLONOSCOPY 08/25/2018: ESOPHAGOGASTRODUODENOSCOPY TRANSORAL DIAGNOSTIC Comment: EGD No date: EYE SURGERY HX No date: NEUROPLASTY AND/TRANSPOS MEDIAN NRV CARPAL TUNNE Comment: Carpal tunnel decomp- left No date: PAST SURGICAL HISTORY OF Comment: salivary gland removed- chronic infection 06/03/2012: PAST SURGICAL HISTORY OF Comment: right trigger finger releases 1-4 06/23/2014: PAST SURGICAL HISTORY OF Comment: left ring trigger finger release No date: RHINP PRIM LATANDALAR CRTLGSAND/ELVTN NASAL TI Comment: Rhinoplasty No date: RHYTIDECTOMY NECK W/PLATYSMAL TIGHTENING Comment: eye brow lift No date: TONSILLECTOMY PRIMARY/SECONDARY Comment: Tonsillectomy No date: TOTAL ABDOMINAL HYSTERECT W/WO RMVL TUBE OVARY Comment: Hysterectomy, DHIRAJ 02/25/2023: TOTAL KNEE REPLACEMENT ALLERGIES Asa [Salicylates], Flonase [Fluticasone], Genteal Pm [White Petrolatum-Mineral Oil], and Sulfa (Sulfonamide Antibiotics) MEDICATIONS Current Outpatient Medications Medication Sig pregabalin (LYRICA) 50 mg capsule Take 1 capsule by mouth three times a day for 90 days. rOPINIRole (REQUIP) 0.5 mg tablet one tablet at noon and 4PM, 1 tablets at 8PM and 1 tablet at midnight. losartan (COZAAR) 50 mg tablet Take 1 tablet by mouth once daily. levothyroxine (SYNTHROID) 50 mcg tablet Take 1 tablet by mouth once daily 6 out of 7 days per week. omeprazole (PRILOSEC) 20 mg capsule Take one tablet by mouth q day simvastatin (ZOCOR) 40 mg tablet Take 1 tablet by mouth daily at bedtime. polyethylene glycol 3350 (MIRALAX) 17 gram/dose powder Take 17 g by mouth once daily. Dissolve dose in 4 - 8 ounces of liquid and take as directed. TURMERIC ORAL Take 1 capsule by mouth once daily. calcium carbonate/vitamin D3 (CALCIUM WITH VITAMIN D ORAL) Take 1 tablet by mouth once daily. IPRATROPIUM BROMIDE NASAL Use 1 Leburn in the nose twice daily. hypromellose(GENTEAL MODERATE 0.3 % EYE DROPS) To left eye ASPIRIN 81 MG TAB Take one (1) tablet daily . melatonin 3 mg ODT Take by mouth daily at bedtime. No current facility-administered medications for this visit. FAMILY HISTORY Problem Relation Age of Onset Heart Mother massive HI, in her 70's other (Other) Father unknown Alzheimer's Disease Sister Cancer Maternal Grandmother GI CANCER Heart Maternal Aunt Diabetes Maternal Aunt Heart Maternal Uncle Colon Cancer No Family History Social History Tobacco Use Smoking status: Never Smokeless tobacco: Never Vaping Use Vaping status: Never Used Substance Use Topics Alcohol use: No Drug use: No EXAM: BP 151/65 Pulse 65 Wt 49 kg (108 lb) SpO2 99% BMI 20.41 kg/m? PHYSICAL EXAM: Physical Exam Vitals reviewed. Constitutional: Appearance: Normal appearance. HENT: Head: Normocephalic. Neck: Vascular: No carotid bruit. Cardiovascular: Rate and Rhythm: Normal rate and regular rhythm. Pulses: Normal pulses. Heart sounds: Murmur heard. No friction rub. No gallop. Comments: Soft PEACE @ sternal border Pulmonary: Effort: Pulmonary effort is nor (more content not included)... Normal [facility] XR FINGERS 2+ VIEWS RIGHTon 04-19-2024 XR FINGERS 2+ VIEWS RIGHT well-positioned PIP joint arthroplasty middle finger Normal [facility] Office Visiton 04-11-2024 Follow-up visit [id number] Chinyere Krishna 1935 F Date Provider Department Center 04/11/2024 [id number]-EEFGIZENON [facility]VAR[facility]O [facility] None No family history on file Level of Service:28770 [place] POSTOP FOLLOW UP VISIT RELATED TO ORIGINAL PX Reason for Visit and Comments: Post-op [483] - DOS 02/12/24 Open reduction right middle finger PIP joint with PIP joint silicone arthroplasty Normal [facility] Progress Noteon 04-11-2024 Progress Note [facility] [address] [place] [address] [place] [id number] Dept: [phone] Dept 04/11/2024 Chief Complaint Patient presents with Post-op DOS 02/12/24 Open reduction right middle finger PIP joint with PIP joint silicone arthroplasty SUBJECTIVE Girard is approximately 8 week(s) s/p DOS 02/12/24 Open reduction right middle finger PIP joint with PIP joint silicone arthroplasty . She is no longer taking anything for pain. She denies significant complaints other than the expected amount of pain. Patient reports that she is going to occupational therapy twice a week at [facility]. OBJECTIVE BP 130/70 Ht 5' 1 (1.549 m) Wt 102 lb (46.3 kg) BMI 19.27 kg/m? Ortho Exam Focused Exam of the RIGHT Upper Extremity Incision is well-healed. Resolving soft tissue swelling of the PIP joint of the middle finger. Slight ulnar angulation. Lacks 20 degrees of extension PIP joint with near full flexion. NVID. Clinical image(s): Stability: no evidence of joint instabilities Motor: Intact in the hand - able to fire AIN, PIN, and Ulnar nerves Sensation: normal in the median, ulnar, and radial nerve distributions Perfusion: Brisk capillary refill in all 5 digits IMAGING RIGHT Hand 3V well-positioned PIP joint arthroplasty middle finger ASSESSMENT No diagnosis found. No diagnosis found. PLAN Chinyere has done exceptionally well. She can use her hand without restrictions. Immobilization: NO immobilization required at this point - FULL ROM encouraged without resitrictions Weight Bearing: Weight Bearing As Tolerated Rehabilitation: continue with OT as needed . Follow-up: Chinyere will followup with me on an as needed basis. She knows to call the office with any questions or concerns in the interim. Future Imaging: NONE Zenon Huston MD Hand and Upper Extremity Surgery [employer] Department of Orthopaedics and Sports Medicine 04/11/2024 at 10:57 AM (Please note that portions of this note may have been completed with a voice recognition program. Efforts were made to edit the dictations but occasionally words are mis-transcribed.) Normal [facility] CNPNon 03-29-2024 [facility] VASILE CHINYERE ALBERTS ([id number]) 1935 F Date Time Provider Department 03/29/24 MIMI ELIZONDO During your visit today, we recorded the following information about you: Monica Nolanginger 03/29/2024 1:05 PM Signed SLEEPPAREQUEST A PA has been received via Fax. Requested by: Cover My Meds Callback #: [phone] Medication: Pregabalin Dosage: 50 mg May: [id number] Gricelda Cervantes OCCA 03/29/2024 1:14 PM Signed Please see refill request dated 03/23, PA already approved and in scanned documents. Nothing further at this time. 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 - rOPINIRole (REQUIP) 0.5 mg tablet one tablet at noon and 4PM, 1 tablets at 8PM and 1 tablet at midnight. - losartan (COZAAR) 50 mg tablet Take 1 tablet by mouth once daily. - melatonin 3 mg ODT Take by mouth daily at bedtime. - levothyroxine (SYNTHROID) 50 mcg tablet Take 1 tablet by mouth once daily 6 out of 7 days per week. - omeprazole (PRILOSEC) 20 mg capsule Take one tablet by mouth q day - simvastatin (ZOCOR) 40 mg tablet Take 1 tablet by mouth daily at bedtime. - polyethylene glycol 3350 (MIRALAX) 17 gram/dose powder Take 17 g by mouth once daily. Dissolve dose in 4 - 8 ounces of liquid and take as directed. - TURMERIC ORAL Take 1 capsule by mouth once daily. - calcium carbonate/vitamin D3 (CALCIUM WITH VITAMIN D ORAL) Take 1 tablet by mouth once daily. - IPRATROPIUM BROMIDE NASAL Use 1 Leburn in the nose twice daily. - hypromellose(GENTEAL MODERATE 0.3 % EYE DROPS) To left eye - ASPIRIN 81 MG TAB Take one (1) tablet daily . Problem List As Of Date 03/29/2024 Noted Resolved OSTEOPOROSIS POSTMENOPAUSAL [M81.0] 11/20/2005 Hypothyroidism [E03.9] 11/20/2005 BENIGN HYPERTENSION [I10] 11/20/2005 Restless legs syndrome [G25.81] 11/20/2005 Hyperlipidemia [E78.5] 11/20/2005 Esophageal reflux [K21.9] 11/20/2005 04/19/2019 URETHRITIS OTHER SPECIFIED [N34.1] 01/13/2006 05/12/2022 HYPERCALCEMIA [E83.52] 05/19/2006 05/24/2007 Anemia of chronic renal failure, stage 2 (mild)*05/19/2006 01/23/2023 Disorder of kidney and ureter [N28.9] 05/19/2006 05/12/2022 DIZZINESS AND GIDDINESS [R42] 02/11/2007 05/24/2007 Pain in limb [M79.609] 06/01/2007 09/30/2016 Enthesopathy of unspecified site [M77.9] 07/12/2007 04/19/2019 Paresthesia of skin [R20.2] 07/13/2007 06/05/2017 Stage 3 chronic kidney disease (HCC) [N18.30] 03/20/2009 Psoriatic arthritis (HCC) [L40.50] 02/13/2011 05/12/2022 Arthritis [M19.90] Trigger middle finger of left hand [M65.332] 09/22/2011 04/19/2019 Trigger index finger of right hand [M65.321] 09/22/2011 04/19/2019 Trigger thumb of right hand [M65.311] 09/22/2011 04/19/2019 Other psoriasis [L40.8] 03/03/2012 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] 03/03/2012 06/05/2017 Other seborrheic dermatitis [L21.8] 03/03/2012 04/20/2015 Xerosis cutis [L85.3] 03/03/2012 04/20/2015 Actinic skin damage [L57.8] 03/03/2012 04/20/2015 Trigger little finger of left hand [M65.352] 05/03/2012 04/19/2019 Trigger middle finger of right hand [M65.331] 05/31/2012 04/19/2019 Trigger ring finger of right hand [M65.341] 05/31/2012 04/19/2019 Irritated//Inflamed Seborrheic Keratosis [L82.0]07/06/2012 04/20/2015 Milial cyst [L72.0] 07/06/2012 04/20/2015 Other seborrheic keratosis [L82.1] 07/06/2012 04/20/2015 Solar lentigo [L81.4] 07/06/2012 04/20/2015 Milia [L72.0] 07/06/2012 04/20/2015 Anal burning [K62.89] 03/23/2013 04/20/2015 Perianal dermatitis [L30.9] 08/22/2013 05/12/2022 Perioral dermatitis [L71.0] 03/22/2014 03/31/2017 Acne rosacea [L71.9] 03/22/2014 05/12/2022 Postinflammatory skin changes [R23.8] 03/22/2014 04/20/2015 Trigger ring finger of left hand [M65.342] 06/05/2014 04/19/2019 Essential tremor [G25.0] 05/30/2015 Hyperlipidemia [E78.5] 10/19/2015 03/31/2017 Gastroesophageal reflux disease [K21.9] 08/20/2018 10/07/2018 Functional dyspepsia [K30] 08/20/2018 Epigastric pain [R10.13] 08/20/2018 04/19/2019 GERD (gastroesophageal reflux disease) [K21.9] 08/20/2018 Prediabetes [R73.03] 05/31/2019 Lung nodule < 6cm on CT [[id number]] 06/27/2019 Counseling regarding advanced directives and go*10/29/2021 09/23/2023 Chronic left-sided thoracic back pain [M54.6, G*05/23/2022 Nonrheumatic mitral valve regurgitation [I34.0] 02/28/2023 Hypogammaglobulinemia (HCC) [D80 (more content not included)... [facility] Progress Noteon 03-29-2024 Progress Note [facility] [address] [facility] [id number] Discharge Notification Patient Name: Chinyere Alberts : 1935 Today's Date: 03/29/2024 Patient has not been seen since 02/23/2024. The patient will be discharged at this time due to inactivity. The patient has not been seen for outpatient therapy in 30+ days and has not made contact to reschedule. The patient will require new referral/evaluation to resume therapy in the future. The patient will be discharged at this time. Please refer to initial evaluation or re-assessment for last goals/objective measures assessment and progress report. Thank you for this referral. For any questions on this patient?s course of therapy, please call the clinic for clarification. Mark Murphy OT [facility] XR Chest PA and Lateralon IMPRESSION: No acute radiographic abnormality. Lance Crewmember: YAMIL Transcribe Date/Time: Mar 26 2024 8:15P Dictated by : CHINEDU STUBBS DO This examination was interpreted and the report reviewed and electronically signed by: CHINEDU STUBBS DO on Mar 26 2024 8:16PM [facility] DIVISION OF RADIOLOGY * * *Final Report* * * DATE OF EXAM: Mar 23 2024 11:51AM WOX [id number] - XR CHEST 2V FRONTAL/LAT / PROCEDURE REASON: Chest pain, unspecified type * * * * Physician Interpretation * * * * EXAMINATION: CHEST RADIOGRAPH (2 VIEW FRONTAL & LATERAL) PATIENT/TECHNOLOGIST PROVIDED HISTORY: Chest pain CLINICAL HISTORY: 88 years old Female with Chest pain, unspecified type MQ: XC2_6 EXAM DATE/TIME: 03/23/2024 11:51 AM COMPARISON: Chest radiograph(s) dated 05/12/2022, CT chest 07/06/2020 RESULT: Lines, tubes, and devices: None. Lungs and pleura: No consolidation, pleural effusion or pneumothorax. Cardiomediastinal silhouette: Normal heart size. Coronary artery atherosclerotic calcifications. Dense mitral annular calcification. Atherosclerotic calcification at the aortic arch. Bones and soft tissues: Exaggeration of the thoracic kyphosis. Mild endplate degenerative changes in the thoracic spine. DIVISION OF RADIOLOGY Provider, Antonia Kanu Mcgowan - 03/26/2024 * * *Final Report* * * DATE OF EXAM: Mar 23 2024 11:51AM WOX [id number] - XR CHEST 2V FRONTAL/LAT / PROCEDURE REASON: Chest pain, unspecified type * * * * Physician Interpretation * * * * EXAMINATION: CHEST RADIOGRAPH (2 VIEW FRONTAL & LATERAL) PATIENT/TECHNOLOGIST PROVIDED HISTORY: Chest pain CLINICAL HISTORY: 88 years old Female with Chest pain, unspecified type MQ: XC2_6 EXAM DATE/TIME: 03/23/2024 11:51 AM COMPARISON: Chest radiograph(s) dated 05/12/2022, CT chest 07/06/2020 RESULT: Lines, tubes, and devices: None. Lungs and pleura: No consolidation, pleural effusion or pneumothorax. Cardiomediastinal silhouette: Normal heart size. Coronary artery atherosclerotic calcifications. Dense mitral annular calcification. Atherosclerotic calcification at the aortic arch. Bones and soft tissues: Exaggeration of the thoracic kyphosis. Mild endplate degenerative changes in the thoracic spine. IMPRESSION IMPRESSION: No acute radiographic abnormality. Lance Crewmember: PSCB Transcribe Date/Time: Mar 26 2024 8:15P Dictated by : CHINEDU STUBBS DO This examination was interpreted and the report reviewed and electronically signed by: CHINEDU STUBBS DO on Mar 26 2024 8:16PM EST [facility] XR Chest PA and LateralOrder ed By: Ccf Provider on 03-26-2024 [facility] Echo Completeon 03-25-2024 Echo Complete [facility] [address] [place] [address] Echo Complete 03/25/24 1001 MR#: [id number] Acct: [id number] Name: CHINYERE KRISHNA Rep #: [id number] : 1935 88 From: Pacheco Farrar MD Attending Dr: OSIRIS Marmolejo Status: REG CLI Ordering Dr: Eneida Arroyo Date: 10/17 Location: CVS Sex: F C Admitted: Reason For Study: MURMUR Procedure This was a 2D Doppler, Color Flow transthoracic echocardiogram. Exam performed in department. Left Ventricle Normal LV size. Moderate concentric left ventricular hypertrophy. Left ventricular systolic function is normal. The left ventricular ejection fraction is 70 %. Stage 1 diastolic dysfunction. No regional wall motion abnormalities noted. Right Ventricle Normal RV size. Normal systolic function. Atria Normal left atrium. Normal right atrium. Mitral Valve There is moderate mitral annular calcification. Mild (1+) mitral valve insufficiency. Tricuspid Valve Normal tricuspid valve. Mild (1+) tricuspid valve insufficiency. Pulmonary artery systolic pressure is 30 mmHg. Aortic Valve Trisinus/trileaflet aortic valve. Mild focal aortic valve calcification. Mean aortic valve gradient 5 mmHg. Mild (1+) aortic valve insufficiency. Pulmonic Valve Normal pulmonic valve. Great Vessels Calcified aortic root. The pulmonary artery is normal size. Inferior vena cava collapse with respiration. Pericardium/Pleural No pericardial effusion. MMode/2D Measurements Calculations RVDd: 2.7 cm LVOT diam: 1.5 cm LAV(MOD-bp): 45.6 ml LVOT area: 1.8 cm2 LAV(MOD-bp) Indexed: 31.2 ml/m2 LAV(MOD-sp2): 47.8 ml LAV(MOD-sp4): 39.3 ml SV(MOD-sp4): 39.0 ml SV(sp4-el): 40.5 ml LVAd ap4: 21.2 cm2 LVLd ap4: 7.0 cm EDV(MOD-sp4): 52.8 ml EDV(sp4-el): 54.2 ml LVAs ap4: 9.3 cm2 LVLs ap4: 5.3 cm ESV(MOD-sp4): 13.8 ml ESV(sp4-el): 13.7 ml EF(MOD-sp4): 73.8 % EF(sp4-el): 74.7 % LA A4 area: 15.1 cm2 RA A4 area: 11.5 cm2 TAPSE: 1.7 cm Time Measurements MV dec time: 0.23 sec Doppler Measurements Calculations MV E max blane: 101.2 cm/sec Lat Peak E' Blane: 7.3 cm/sec Med Peak E' Blane: 4.4 cm/sec MV A max blane: 112.9 cm/sec E/E' lat: 13.8 E/E' med: 22.9 MV E/A: 0.90 MV V2 max: 130.1 cm/sec MV dec slope: 446.6 cm/sec2 Ao V2 max: 164.9 cm/sec MV max P.8 mmHg Ao max P.9 mmHg MV V2 mean: 63.3 cm/sec Ao V2 mean: 108.4 cm/sec MV mean P.0 mmHg Ao mean P.5 mmHg MV V2 VTI: 52.0 cm Ao V2 VTI: 40.5 cm MVA(VTI): 1.0 cm2 AV (velocity ratio): 0.74 FELECIA(I,D): 1.3 cm2 FELECIA(V,D): 1.3 cm2 AI max blane: 392.8 cm/sec LV V1 max: 122.4 cm/sec SV(LVOT): 53.4 ml AI max P.7 mmHg LV V1 max P.0 mmHg LV V1 mean P.3 mmHg AI dec slope: 224.2 cm/sec2 LV V1 mean: 83.8 cm/sec AI P1/2t: 513.2 msec LV V1 VTI: 30.0 cm PA V2 max: 94.1 cm/sec TR max blane: 249.8 cm/sec PA max PG (full): 1.7 mmHg TR max P.0 mmHg ECHO/Echo Complete Interpretation Summary Normal LV size. Moderate concentric left ventricular hypertrophy. The left ventricular ejection fraction is 70 %. Left ventricular systolic function is normal. Mild focal aortic valve calcification. Mild (1+) aortic valve insufficiency. Stage 1 diastolic dysfunction. Ordering Physician: Eneida Arroyo Referring Physician: Eneida Arroyo Performed By: Mary Bowen and Student 03/25/24 1506 Date Pacheco Farrar MD CC: Dr. Jeffy Fields MD; OSIRIS Marmolejo Date Dictated: 03/25/24 1001 Date Transcribed: 03/25/24 150 Lance Crewmember: Signed Normal [facility] CBC W Auto Differential pane l (Bld)on 03-23-2024 Basophils (Bld) [#/Vol] 0.07 10*3/uL [facility] Basophils/100 WBC (Bld) 1.4 % [facility] Differential cell count method Nom (Bld) Auto [facility] Eosinophils (Bld) [#/Vol] 0.20 10*3/uL [facility] Eosinophils/100 WBC (Bld) 4.0 % [facility] Erythrocyte distribution width (RBC) [Ratio] 12.3 % 11.5 - 15.0 % [facility] Hematocrit (Bld) [Volume fraction] 43.4 % 36.0 - 46.0 % [facility] Hemoglobin (Bld) [Mass/Vol] 14.4 g/dL 11.5 - 15.5 g/dL [facility] Immature granulocytes (Bld) [#/Vol] [facility] Immature granulocytes/100 WBC (Bld) 0.2 % [facility] Interpretation and review of laboratory results Abnormal [facility] Lymphocytes (Bld) [#/Vol] 0.81 10*3/uL Low [facility] Lymphocytes/100 WBC (Bld) 16.4 % [facility] MCH (RBC) [Entitic mass] 30.7 pg 26.0 - 34.0 pg [facility] MCHC (RBC) [Mass/Vol] 33.2 g/dL 30.5 - 36.0 g/dL [facility] MCV (RBC) [Entitic vol] 92.5 fL 80.0 - 100.0 fL [facility] Monocytes (Bld) [#/Vol] 0.30 10*3/uL [facility] Monocytes/100 WBC (Bld) 6.1 % [facility] Neutrophils (Bld) [#/Vol] 3.55 10*3/uL [facility] Neutrophils/100 WBC (Bld) 71.9 % [facility] Nucleated RBC (Bld) [#/Vol] NINF [facility] Nucleated RBC/100 WBC (Bld) [Ratio] 0.0 % /100 WBC [facility] Platelet mean volume (Bld) [Entitic vol] 11.0 fL 9.0 - 12.7 fL [facility] Platelets (Bld) [#/Vol] 162 10*3/uL [facility] RBC (Bld) [#/Vol] 4.69 10*6/uL 3.90 - 5.20 m/uL [facility] WBC (Bld) [#/Vol] 4.94 10*3/uL [facility] XR Chest PA and Lateralon Radiology Study observation (narrative) [facility] Office Visiton 03-14-2024 Follow-up visit [id number] Chinyere Krishna 1935 F Date Provider Department Center 03/14/2024 [id number]-VQEIDZENON RAINEY [facility] OR None No family history on file Level of Service:57217 [place] POSTOP FOLLOW UP VISIT RELATED TO ORIGINAL PX Reason for Visit and Comments: Post-op [483] - Open reduction right middle finger PIP joint with PIP joint silicone arthroplasty on 02/12/24 [facility] Progress Noteon 03-14-2024 Progress Note [facility] [address] [place] [address] [place] [id number] Dept: [phone] Dept 03/14/2024 Chief Complaint Patient presents with Post-op Open reduction right middle finger PIP joint with PIP joint silicone arthroplasty on 02/12/24 SUBJECTIVE Girard is approximately 4 week(s) and 3 days s/p Open reduction right middle finger PIP joint with PIP joint silicone arthroplasty. She is no longer taking anything for pain. She states as long as she is in the splint the finger is not painful. The patient feels she is recovering well as expected. She states that her swelling has improved since her last office visit and she has minimal discomfort. She has been compliant with her custom splint and is waldo taping her middle finger when she showers. She has not yet started formal occupational therapy. She mentions that if therapy is recommended she would like to attend closer to her home in [place]. OBJECTIVE Ht 1.549 m (5' 1) Wt 46.3 kg (102 lb) BMI 19.27 kg/m? Ortho Exam Focused Exam of the RIGHT Upper Extremity Skin: appropriately healed incision(s) without evidence of infection Edema: mild edema surrounding the middle finger PIP joint ROM: Motor: Intact in the hand - able to fire AIN, PIN, and Ulnar nerves Sensation: normal in the median, ulnar, and radial nerve distributions Perfusion: Brisk capillary refill in all 5 digits IMAGING RIGHT Long Finger 2V show a well-positioned silicone PIP arthroplasty ASSESSMENT (S63.883D) Dislocation of proximal interphalangeal joint of right middle finger, subsequent encounter (Z96.698) History of arthroplasty of finger 1. Dislocation of proximal interphalangeal joint of right middle finger, subsequent encounter XR fingers 2+ views right, External referral to Occupational Therapy 2. History of arthroplasty of finger XR fingers 2+ views right, External referral to Occupational Therapy PLAN Chinyere is recovering well postoperatively. She was advised to begin coming out of her splint to work gentle PIP range of motion of her right middle finger. She was provided with a prescription for formal external occupational therapy. She is to continue nonweightbearing through her right hand and wearing her custom splint at all times. She understands she can continue to remove her splint for hygiene purposes as well as range of motion exercises. She will then follow-up in 1 month to reassess her range of motion with repeat films. Her questions were answered and she is comfortable with the plan. Immobilization: Custom OT splint: Continue with current use Weight Bearing: Non Weight Bearing Rehabilitation: OT/PT Rx given: To follow protocol. Follow-up: Chinyere will followup with me in 1 months. She knows to call the office with any questions or concerns in the interim. Future Imaging: RIGHT Long Finger 2V Zenon Huston MD Hand and Upper Extremity Surgery [employer] Department of Orthopaedics and Sports Medicine 03/14/2024 at 11:18 AM (Please note that portions of this note may have been completed with a voice recognition program. Efforts were made to edit the dictations but occasionally words are mis-transcribed.) [facility] XR FINGERS 2+ VIEWS RIGHTon 03-14-2024 XR FINGERS 2+ VIEWS RIGHT well-positioned silicone PIP arthroplasty [facility] XR Finger - right 2 Viewson 03-14-2024 well-positioned sili cone PIP arthroplasty [facility] Radiology Study observation (narrative) [facility] Progress Noteon 02-23-2024 Progress Note Pt returned to clini c for slight adjustment on custom splint fabricated last week. Pt stated Dr Huston advised her to return to make it straighter. Care was made to ensure PIP joint was at end range extn and without ulnar or radial deviation. Pt had been discharged and adjustment was minimal and completed in < 8 min. Pt reported fit was improved. No charges were filed [facility] CMP (EXTERNAL)Ordered By: Jono Armstrong on 02-04-2024 Albumin [Mass/Vol] 3.5 g/dL [facility] Alk Phos Total [facility] ALT (SGPT) [facility] AST (SGOT) [facility] Bili Total [facility] Calcium [facility] Chloride [Moles/Vol] 104 mmol/L [facility] CO2 [Moles/Vol] 26 mmol/L [facility] Creatinine [Mass/Vol] 1.18 mg/dL [facility] GFR 46 mL/MIN [facility] GFR AFR AMER 56 mL/MIN [facility] Glucose [Mass/Vol] 116 mg/dL Abnormal [facility] Interpretation and review of laboratory results Abnormal [facility] Potassium [Moles/Vol] 4.1 mmol/L 3.5 - 5.1 mmol/L [facility] Sodium [Moles/Vol] 137 mmol/L 136 - 145 mmol/L [facility] Total Protein [facility] Urea nitrogen [Mass/Vol] 25 mg/dL Abnormal [facility] 25-hydroxyvitamin D3 [Mass/V ol]on 12-14-2023 Interpretation and review of laboratory results Normal [facility] The reference range interval was based on an analysis of samples from healthy adults and may not pertain to children from 0-18 years old. [facility] FERRITINon 12-14-2023 Ferritin [Mass/Vol] 108.0 ng/mL 14.7 - 205.1 ng/mL [facility] Ferritin [Mass/Vol]on 2023 Interpretation and review of laboratory results Normal [facility] Iron and Iron binding capaci ty panelon 12-14-2023 Interpretation and review of laboratory results Normal [facility] Iron [Mass/Vol] 94 ug/dL 41 - 186 ug/dL [facility] Iron binding capacity [Mass/Vol] 322 ug/dL 232 - 386 ug/dL [facility] Iron/TIBC [Molar ratio] 29.2 % 15.0 - 57.0 % [facility] VITAMIN D 25 HYDROXYon 12-13 25-hydroxyvitamin D3 [Mass/Vol] 59.8 ng/mL 31.0 - 80.0 ng/mL [facility] Comment on above: Classification of 25 [place] Vitamin D status: Deficiency/Insufficiency: < or = 30 ng/ml. Sufficiency/Optimal Levels: 31-80 ng/mL Toxicity: > 100 ng/mL. Test performed by chemiluminescent immunoassay. DBT Breast - left diagnostic for implanton 12-01-2023 [facility] US Breast - left limitedon 0 12-01-2023 [facility] Flexible sigmoidoscopy study on 10-15-2023 [facility] NM HEPATOBILIARY W EF AND/OR RXon 07-03-2023 [facility] Absolute lymphocyte countOrd ered By: iRccardo Diggs on 06-08-2023 Lymphocytes Auto (Unsp spec) [#/Vol] 0.62 10*3/uL 0.83-4.51 [facility] Basophil percentageOrdered B y: Riccardo Diggs on 06-08-2023 Basophil percentage 0 SEEN /hpf 0-5 [facility] Basophils/100 WBC (Bld) 1.0 % 0-1 [facility] Chloride [Moles/Vol] 104 mmol/L 98-107 [facility] Eosinophils/100 WBC (Bld) 6.4 % 0-5 [facility] Glucose [Mass/Vol] 109 mg/dL 74-106 [facility] Comment on above: Fasting Glucose resu lt from 100 to 125 mg/dL suggests IMPAIRED HOMEOSTASIS per A.D.A. criteria. Neutrophils (Bld) [#/Vol] 2.0 10*3/uL 2.0-7.7 [facility] Neutrophils/100 WBC (Bld) 65.6 % 47-70 [facility] Potassium [Moles/Vol] 4.2 mmol/L 3.5-5.1 [facility] Sodium [Moles/Vol] 137 mmol/L 136-145 [facility] WBC (Bld) [#/Vol] 3.0 10*3/uL 4.4-11.0 [facility] Bilirubin Test strip Ql (U)O rdered By: Riccardo Diggs on 06-08-2023 Bilirubin Ql (U) Negative Negative [facility] Blood erythrocytes count (nu mber/volume)Ordered By: Riccardo Diggs on 06-08-2023 RBC (Bld) [#/Vol] 4.47 10*6/uL 4.2-5.4 [facility] Blood hemoglobin measurement (mass/volume)Ordered By: Riccardo Diggs on 06-08-2023 Hemoglobin (Bld) [Mass/Vol] 13.3 g/dL 12.0-15.0 [facility] Blood lymphocytes/100 leukoc ytesOrdered By: Riccardo Diggs on 06-08-2023 Lymphocytes/100 WBC (Bld) 20.9 % 19-41 [facility] Blood monocytes/100 leukocyt esOrdered By: Riccardo Diggs on 06-08-2023 Monocytes/100 WBC (Bld) 6.1 % 0-10 [facility] Blood platelet mean volumeOr dered By: Riccardo Diggs on 06-08-2023 Platelet mean volume (Bld) [Entitic vol] 10.2 fL 6.2-12.0 [facility] Determination of erythrocyte mean corpuscular volume (MCV)Ordered By: Riccardo Diggs on 06-08-2023 MCV (RBC) [Entitic vol] 90.6 fL 81-99 [facility] Hematocrit Auto (Bld) [Volum e fraction]Ordered By: Riccardo Diggs on 06-08-2023 Hematocrit (Bld) [Volume fraction] 40.5 % 37-47 [facility] Ketones Test strip Ql (U)Ord ered By: Riccardo iDggs on 06-08-2023 Ketones Ql (U) Negative Negative [facility] Laboratory - Chemistry and C hemistry - challengeOrdered By: Riccardo Diggs on 06-08-2023 CO2 [Moles/Vol] 28.0 mmol/L 21.0-32.0 [facility] Urea nitrogen/Creatinine [Mass ratio] 24.5 mg/mg 10-20 [facility] - Hematology and Cell countsOrdered By: Riccardo Diggs on 06-08-2023 Erythrocyte distribution width (RBC) [Entitic vol] 41.0 fL 35.1-43.9 [facility] Erythrocyte distribution width (RBC) [Ratio] 12.4 % 11.6-14.6 [facility] Immature granulocytes/100 WBC (Bld) 0.000 % 0.0-0.9 [facility] Comment on above: IG% - Immature Granu locytes (promyelocytes, myelocytes and metamyelocytes) > 1% indicates that a LEFT SHIFT is Present. MCH (RBC) [Entitic mass] 29.8 pg 27.0-32.0 [facility] Nucleated RBC/100 WBC (Bld) [Ratio] 0 % 0-5 [facility] MCHC Auto (RBC) [Mass/Vol]Or dered By: Riccardo Diggs on 06-08-2023 MCHC (RBC) [Mass/Vol] 32.8 g/dL 32-36 [facility] Mucus LM Ql (Urine sed)Order ed By: Riccardo Diggs on 06-08-2023 Mucus Ql (Urine sed) 0 SEEN /hpf [facility] Nitrite Test strip Ql (U)Ord ered By: Riccardo Diggs on 06-08-2023 Nitrite Ql (U) Negative Negative [facility] No Panel InformationOrdered By: Riccardo Diggs on 06-08-2023 Estimated Creatinine Clearance Calc 28.49 ml/min [facility] Estimated GFR (MDRD) Amer 66 mL/min >60 [facility] Comment on above: GFR Calc Estimated GFR (MDRD) Non-Af Amer 55 mL/min >60 [facility] Comment on above: Non- GFR Calc Platelets bldOrdered By: Zane Diggs on 06-08-2023 Platelets (Bld) [#/Vol] 132 10*3/uL 150-450 [facility] Protein Test strip Ql (U)Ord ered By: Riccardo Diggs on 06-08-2023 Protein Ql (U) Negative Negative [facility] Serum or plasma calcium gio urement (mass/volume)Ordered By: Riccardo Diggs on 06-08-2023 Calcium [Mass/Vol] 9.6 mg/dL 8.5-10.1 [facility] Serum or plasma creatinine m easurement (mass/volume)Ordered By: Riccardo Diggs on 06-08-2023 Creatinine [Mass/Vol] 1.02 mg/dL 0.55-1.02 [facility] Comment on above: The validity of the calculated GFR & GFRAA in patients over 70 years has not been determined. Clinical correlation is essential. Serum or plasma urea nitroge n measurement (mass/volume)Ordered By: Riccardo Diggs on 06-08-2023 Urea nitrogen [Mass/Vol] 25 mg/dL 7-18 [facility] Squamous epithelial cells de tection in urine sediment by light microscopyOrdered By: Riccardo Diggs on 06-08-2023 Epithelial cells.squamous LM Ql (Urine sed) 0 SEEN /hpf 5-10 [facility] Thin prep Papanicolaou smear with manual screeningOrdered By: Riccardo Diggs on 06-08-2023 Thin prep Papanicolaou smear with manual screening 5 5-15 [facility] Urine blood detectionOrdered By: Riccardo Diggs on 06-08-2023 RBC Ql (U) 25 /ul Negative [facility] RBC Ql (U) 0 SEEN /hpf 0-5 [facility] Urine clarityOrdered By: Zane Diggs on 06-08-2023 Clarity (U) Clear Clear [facility] Urine color determinationOrd ered By: Riccardo Diggs on 06-08-2023 Color (U) Yellow Yellow [facility] Urine glucose detectionOrder ed By: Riccardo Diggs on 06-08-2023 Glucose Ql (U) Normal mg/dl Normal [facility] Urine leukocyte esterase det ection by dipstickOrdered By: Riccardo Diggs on 06-08-2023 Leukocyte esterase Test strip Ql (U) Negative Negative [facility] Urine pHOrdered By: Riccardo robb on 06-08-2023 pH (U) 6.0 [pH] 5.0 - 8.0 [facility] Urine sediment bacteria coun t by microscopy (number/high power field)Ordered By: Riccardo Diggs on 06-08-2023 Bacteria LM.HPF (Urine sed) [#/Area] 0 /[HPF] None Seen [facility] Urine specific gravity measu rementOrdered By: Riccardo Diggs on 06-08-2023 Specific gravity (U) [Rel density] 1.010 1.002-1.03 0 [facility] Urobilinogen Auto test strip Ql (U)Ordered By: Riccardo Diggs on 06-08-2023 Urobilinogen Ql (U) Normal mg/dl Normal [facility] No Panel Informationon 05-27 [facility] KAITLIN SCREENINGon 04-22-2023 [facility] XR ABDOMEN 1V SUPINEon 04-07 [facility] Absolute lymphocyte countOrd ered By: Cresencio Rollins on 02-28-2023 Lymphocytes Auto (Unsp spec) [#/Vol] 0.76 10*3/uL 0.83-4.51 [facility] Basophil percentageOrdered B y: Cresencio Rollins on 02-28-2023 Basophils/100 WBC (Bld) 1.5 % 0-1 [facility] Chloride [Moles/Vol] 100 mmol/L 98-107 [facility] Eosinophils/100 WBC (Bld) 5.4 % 0-5 [facility] Glucose [Mass/Vol] 102 mg/dL 74-106 [facility] Comment on above: Fasting Glucose resu lt from 100 to 125 mg/dL suggests IMPAIRED HOMEOSTASIS per A.D.A. criteria. Neutrophils (Bld) [#/Vol] 2.7 10*3/uL 2.0-7.7 [facility] Neutrophils/100 WBC (Bld) 65.9 % 47-70 [facility] Potassium [Moles/Vol] 3.7 mmol/L 3.5-5.1 [facility] Sodium [Moles/Vol] 133 mmol/L 136-145 [facility] WBC (Bld) [#/Vol] 4.0 10*3/uL 4.4-11.0 [facility] Basophil percentage 0 SEEN /hpf 0-5 [facility] Bilirubin Test strip Ql (U)O rdered By: Cresencio Rollins on 02-28-2023 Bilirubin Ql (U) Negative Negative [facility] Blood erythrocytes count (nu mber/volume)Ordered By: Cresencio Rollins on 02-28-2023 RBC (Bld) [#/Vol] 4.53 10*6/uL 4.2-5.4 [facility] Blood hemoglobin measurement (mass/volume)Ordered By: Cresencio Rollins on 02-28-2023 Hemoglobin (Bld) [Mass/Vol] 13.7 g/dL 12.0-15.0 [facility] Blood lymphocytes/100 leukoc ytesOrdered By: Cresencio Rollins on 02-28-2023 Lymphocytes/100 WBC (Bld) 18.8 % 19-41 [facility] Blood monocytes/100 leukocyt esOrdered By: Cresencio Rollins on 02-28-2023 Monocytes/100 WBC (Bld) 7.9 % 0-10 [facility] Blood platelet mean volumeOr dered By: Cresencio Rollins on 02-28-2023 Platelet mean volume (Bld) [Entitic vol] 10.1 fL 6.2-12.0 [facility] Determination of erythrocyte mean corpuscular volume (MCV)Ordered By: Cresencio Rollins on 02-28-2023 MCV (RBC) [Entitic vol] 92.7 fL 81-99 [facility] Hematocrit Auto (Bld) [Volum e fraction]Ordered By: Cresencio Rollins on 02-28-2023 Hematocrit (Bld) [Volume fraction] 42.0 % 37-47 [facility] Ketones Test strip Ql (U)Ord ered By: Cresencio Rollins on 02-28-2023 Ketones Ql (U) Negative Negative [facility] Laboratory - Chemistry and C hemistry - challengeOrdered By: Cresencio Rollins on 02-28-2023 CO2 [Moles/Vol] 28.0 mmol/L 21.0-32.0 [facility] Urea nitrogen/Creatinine [Mass ratio] 24.1 mg/mg 10-20 [facility] Laboratory - Hematology and Cell countsOrdered By: Cresencio Rollins on 02-28-2023 Erythrocyte distribution width (RBC) [Entitic vol] 41.0 fL 35.1-43.9 [facility] Erythrocyte distribution width (RBC) [Ratio] 11.9 % 11.6-14.6 [facility] Immature granulocytes/100 WBC (Bld) 0.500 % 0.0-0.9 [facility] Comment on above: IG% - Immature Granu locytes (promyelocytes, myelocytes and metamyelocytes) > 1% indicates that a LEFT SHIFT is Present. MCH (RBC) [Entitic mass] 30.2 pg 27.0-32.0 [facility] Nucleated RBC/100 WBC (Bld) [Ratio] 0 % 0-5 [facility] MCHC Auto (RBC) [Mass/Vol]Or dered By: Cresencio Rollins on 02-28-2023 MCHC (RBC) [Mass/Vol] 32.6 g/dL 32-36 [facility] Mucus LM Ql (Urine sed)Order ed By: Cresencio Rollins on 02-28-2023 Mucus Ql (Urine sed) 0 SEEN /hpf [facility] Nitrite Test strip Ql (U)Ord ered By: Cresencio Rollins on 02-28-2023 Nitrite Ql (U) Negative Negative [facility] No Panel InformationOrdered By: Cresencio Rollins on 02-28-2023 Estimated Creatinine Clearance Calc 27.52 ml/min [facility] Estimated GFR (MDRD) Amer 62 mL/min >60 [facility] Comment on above: GFR Calc Estimated GFR (MDRD) Non-Af Amer 51 mL/min >60 [facility] Comment on above: Non- GFR Calc Platelets bldOrdered By: Kuldip Rollins on 02-28-2023 Platelets (Bld) [#/Vol] 156 10*3/uL 150-450 [facility] Protein Test strip Ql (U)Ord ered By: Cresencio Rollins on 02-28-2023 Protein Ql (U) 15 mg/dl Negative [facility] Serum or plasma calcium gio urement (mass/volume)Ordered By: Cresencio Rollins on 02-28-2023 Calcium [Mass/Vol] 9.3 mg/dL 8.5-10.1 [facility] Serum or plasma creatinine m easurement (mass/volume)Ordered By: Cresencio Rollins on 02-28-2023 Creatinine [Mass/Vol] 1.08 mg/dL 0.55-1.02 [facility] Comment on above: The validity of the calculated GFR & GFRAA in patients over 70 years has not been determined. Clinical correlation is essential. Serum or plasma urea nitroge n measurement (mass/volume)Ordered By: Cresencio Rollins on 02-28-2023 Urea nitrogen [Mass/Vol] 26 mg/dL 7-18 [facility] Squamous epithelial cells de tection in urine sediment by light microscopyOrdered By: Cresencio Rollins on 02-28-2023 Epithelial cells.squamous LM Ql (Urine sed) 0 SEEN /hpf 5-10 [facility] Thin prep Papanicolaou smear with manual screeningOrdered By: Cresencio Rollins on 02-28-2023 Thin prep Papanicolaou smear with manual screening 5 5-15 [facility] Urine blood detectionOrdered By: Cresencio Rollins on 02-28-2023 RBC Ql (U) 25 /ul Negative [facility] RBC Ql (U) 0 SEEN /hpf 0-5 [facility] Urine clarityOrdered By: Kuldip Rollins on 02-28-2023 Clarity (U) Clear Clear [facility] Urine color determinationOrd ered By: Cresencio Rollins on 02-28-2023 Color (U) Straw Yellow [facility] Urine glucose detectionOrder ed By: Cresencio Rollins on 02-28-2023 Glucose Ql (U) Normal mg/dl Normal [facility] Urine leukocyte esterase det ection by dipstickOrdered By: Cresencio Rollins on 02-28-2023 Leukocyte esterase Test strip Ql (U) Negative Negative [facility] Urine pHOrdered By: Cresencio Rollins on 02-28-2023 pH (U) 6.5 [pH] 5.0 - 8.0 [facility] Urine sediment bacteria coun t by microscopy (number/high power field)Ordered By: Cresencio Rollins on 02-28-2023 Bacteria LM.HPF (Urine sed) [#/Area] 0 /[HPF] None Seen [facility] Urine specific gravity measu rementOrdered By: Cresencio Rollins on 02-28-2023 Specific gravity (U) [Rel density] 1.010 1.002-1.03 0 [facility] Urobilinogen Auto test strip Ql (U)Ordered By: Cresencio Rollins on 02-28-2023 Urobilinogen Ql (U) Normal mg/dl Normal [facility] Basophil percentageOrdered B y: Dr. Harper on 02-05-2023 Basophil percentage 0 SEEN /hpf 0-5 [facility] Basophil percentage 3.6 mg/dL 2.5-4.9 [facility] Chloride [Moles/Vol] 104 mmol/L 98-107 [facility] Glucose [Mass/Vol] 174 mg/dL 74-106 [facility] Comment on above: Fasting Glucose resu lt greater than or equal to 126 mg/dL suggests DIABETES MELLITUS per A.D.A. criteria. Potassium [Moles/Vol] 3.7 mmol/L 3.5-5.1 [facility] Sodium [Moles/Vol] 136 mmol/L 136-145 [facility] Bilirubin Test strip Ql (U)O rdered By: Dr. Harper on 02-05-2023 Bilirubin Ql (U) Negative Negative [facility] Ketones Test strip Ql (U)Ord ered By: Dr. Harper on 02-05-2023 Ketones Ql (U) Negative Negative [facility] Laboratory - Chemistry and C hemistry - challengeOrdered By: Dr. Harper on 02-05-2023 CO2 [Moles/Vol] 25.0 mmol/L 21.0-32.0 [facility] Urea nitrogen/Creatinine [Mass ratio] 19.1 mg/mg 10-20 [facility] Mucus LM Ql (Urine sed)Order ed By: Dr. Harpre on 02-05-2023 Mucus Ql (Urine sed) 0 SEEN /hpf [facility] Nitrite Test strip Ql (U)Ord ered By: Dr. Harper on 02-05-2023 Nitrite Ql (U) Negative Negative [facility] No Panel InformationOrdered By: Dr. Harper on 02-05-2023 Estimated GFR (MDRD) Amer 61 mL/min >60 [facility] Comment on above: GFR Calc Estimated GFR (MDRD) Non-Af Amer 50 mL/min >60 [facility] Comment on above: Non- GFR Calc Protein Test strip Ql (U)Ord ered By: Dr. Harper on 02-05-2023 Protein Ql (U) Negative Negative [facility] Serum or plasma albumin gio urement (mass/volume)Ordered By: Dr. Harper on 02-05-2023 Albumin [Mass/Vol] 3.4 g/dL 3.2-5.0 [facility] Serum or plasma calcium gio urement (mass/volume)Ordered By: Dr. Harper on 02-05-2023 Calcium [Mass/Vol] 9.2 mg/dL 8.5-10.1 [facility] Serum or plasma creatinine m easurement (mass/volume)Ordered By: Dr. Harper on 02-05-2023 Creatinine [Mass/Vol] 1.10 mg/dL 0.55-1.02 [facility] Comment on above: The validity of the calculated GFR & GFRAA in patients over 70 years has not been determined. Clinical correlation is essential. Serum or plasma urea nitroge n measurement (mass/volume)Ordered By: Dr. Harper on 02-05-2023 Urea nitrogen [Mass/Vol] 21 mg/dL 7-18 [facility] Squamous epithelial cells de tection in urine sediment by light microscopyOrdered By: Dr. Harper on 02-05-2023 Epithelial cells.squamous LM Ql (Urine sed) 0 SEEN /hpf 5-10 [facility] Urine blood detectionOrdered By: Dr. Harper on 02-05-2023 RBC Ql (U) 25 /ul Negative [facility] RBC Ql (U) 0 SEEN /hpf 0-5 [facility] Urine clarityOrdered By: Dr. Harper on 02-05-2023 Clarity (U) Clear Clear [facility] Urine color determinationOrd ered By: Dr. Harper on 02-05-2023 Color (U) Yellow Yellow [facility] Urine creatinine measurement (mass/volume)Ordered By: Dr. Harper on 02-05-2023 Creatinine (U) [Mass/Vol] 28.00 mg/dL NO RANGE EST. [facility] Urine glucose detectionOrder ed By: Dr. Harper on 02-05-2023 Glucose Ql (U) Normal mg/dl Normal [facility] Urine leukocyte esterase det ection by dipstickOrdered By: Dr. Harper on 02-05-2023 Leukocyte esterase Test strip Ql (U) Negative Negative [facility] Urine pHOrdered By: Dr. Harper on 02-05-2023 pH (U) 6.5 [pH] 5.0 - 8.0 [facility] Urine protein measurement (m ass/volume)Ordered By: Dr. Harper on 02-05-2023 Protein (U) [Mass/Vol] mg/dL 0.0-11.8 [facility] Urine protein/creatinine mas s ratioOrdered By: Dr. Harper on 02-05-2023 Protein/Creatinine (U) [Mass ratio] TNP [facility] Comment on above: Test not performed Urine sediment bacteria coun t by microscopy (number/high power field)Ordered By: Dr. Harper on 02-05-2023 Bacteria LM.HPF (Urine sed) [#/Area] 0 /[HPF] None Seen [facility] Urine specific gravity measu rementOrdered By: Dr. Harper on 02-05-2023 Specific gravity (U) [Rel density] 1.010 1.002-1.03 0 [facility] Urobilinogen Auto test strip Ql (U)Ordered By: Dr. Harper on 02-05-2023 Urobilinogen Ql (U) Normal mg/dl Normal [facility] No Panel Informationon 02-02 [facility] CBC W Auto Differential pane l (Bld)on 08-13-2022 Basophils (Bld) [#/Vol] 0.05 10*3/uL <0.11 k/uL [facility] Basophils/100 WBC (Bld) 1.5 % [facility] Differential cell count method Nom (Bld) Auto [facility] Eosinophils (Bld) [#/Vol] 0.10 10*3/uL <0.46 k/uL [facility] Eosinophils/100 WBC (Bld) 2.9 % [facility] Erythrocyte distribution width (RBC) [Ratio] 12.1 % 11.5 - 15.0 % [facility] Hematocrit (Bld) [Volume fraction] 42.2 % 36.0 - 46.0 % [facility] Hemoglobin (Bld) [Mass/Vol] 13.4 g/dL 11.5 - 15.5 g/dL [facility] Immature granulocytes (Bld) [#/Vol] <0.10 k/uL [facility] Immature granulocytes/100 WBC (Bld) 0.6 % [facility] Lymphocytes (Bld) [#/Vol] 0.73 10*3/uL Low 1.00 - 4.00 k/uL [facility] Lymphocytes/100 WBC (Bld) 21.5 % [facility] MCH (RBC) [Entitic mass] 29.5 pg 26.0 - 34.0 pg [facility] MCHC (RBC) [Mass/Vol] 31.8 g/dL 30.5 - 36.0 g/dL [facility] MCV (RBC) [Entitic vol] 93.0 fL 80.0 - 100.0 fL [facility] Monocytes (Bld) [#/Vol] 0.24 10*3/uL <0.87 k/uL [facility] Monocytes/100 WBC (Bld) 7.1 % [facility] Neutrophils (Bld) [#/Vol] 2.25 10*3/uL 1.45 - 7.50 k/uL [facility] Neutrophils/100 WBC (Bld) 66.4 % [facility] Nucleated RBC (Bld) [#/Vol] <0.01 k/uL [facility] Nucleated RBC/100 WBC (Bld) [Ratio] 0.0 /100 WBC [facility] Platelet mean volume (Bld) [Entitic vol] 10.4 fL 9.0 - 12.7 fL [facility] Platelets (Bld) [#/Vol] 152 10*3/uL 150 - 400 k/uL [facility] RBC (Bld) [#/Vol] 4.54 10*6/uL 3.90 - 5.20 m/uL [facility] WBC (Bld) [#/Vol] 3.39 10*3/uL Low 3.70 - 11.00 k/uL [facility] ESR Westergren method (Bld) [Velocity]on 08-13-2022 ESR (Bld) [Velocity] 5 mm/h 0 - 20 mm/hr [facility] XR Ribs - left Views and Jacquelin st PAon 05-13-2022 IMPRESSION: No acute radiographic abnormality. Lance Crewmember: PSCB Transcribe Date/Time: May 13 2022 10:01A Dictated by : IDALIA BOOGIE MD This examination was interpreted and the report reviewed and electronically signed by: IDALIA BOOGIE MD on May 13 2022 10:05AM [facility] DIVISION OF RADIOLOGY * * *Final Report* * * DATE OF EXAM: May 12 2022 11:36AM WOX [id number] - XR RIB/CHST 3V AP RIB/OBL/CHST L / PROCEDURE REASON: multiple diagnoses * * * * Physician Interpretation * * * * EXAMINATION: X-ray chest and left ribs Clinical History: Chronic left-sided thoracic back pain Chronic left-sided thoracic back pain M: XC1_4 Comparison: Chest x-ray 06/27/2019 RESULT: Lines, tubes, and devices: None. Lungs and pleura: No consolidation. No lung mass. No pleural effusion. Cardiomediastinal silhouette: Normal cardiomediastinal silhouette. Musculoskeletal: No acute fracture. DIVISION OF RADIOLOGY Provider, [facility] - 05/13/2022 * * *Final Report* * * DATE OF EXAM: May 12 2022 11:36AM WOX [id number] - XR RIB/CHST 3V AP RIB/OBL/CHST L / PROCEDURE REASON: multiple diagnoses * * * * Physician Interpretation * * * * EXAMINATION: X-ray chest and left ribs Clinical History: Chronic left-sided thoracic back pain Chronic left-sided thoracic back pain M: XC1_4 Comparison: Chest x-ray 06/27/2019 RESULT: Lines, tubes, and devices: None. Lungs and pleura: No consolidation. No lung mass. No pleural effusion. Cardiomediastinal silhouette: Normal cardiomediastinal silhouette. Musculoskeletal: No acute fracture. IMPRESSION IMPRESSION: No acute radiographic abnormality. Lance Crewmember: YAMIL Transcribe Date/Time: May 13 2022 10:01A Dictated by : IDALIA BOOGIE MD This examination was interpreted and the report reviewed and electronically signed by: IDALIA BOOGIE MD on May 13 2022 10:05AM EST [facility] XR Ribs - left Views and Jacquelin st PAOrdered By: [facility] Provider on 05-13-2022 [facility] XR Ribs - left Views and Jacquelin st PAon 05-12-2022 Radiology Study observation (narrative) [facility] KAITLIN DIAGNOSTIC LTon 04-16-20 22 [facility] US BREAST LTD LTon 2 [facility] Basophil percentageon 2021 Basophil percentage 3.1 mg/dL 2.5-4.[address] [facility] Work Phone: Chloride [Moles/Vol] 103 mmol/L 98-[address] [facility] Work Phone: Glucose [Mass/Vol] 110 mg/dL 74-106 [facility] Work Phone: Comment on above: Fasting Glucose resu lt from 100 to 125 mg/dL suggests IMPAIRED HOMEOSTASIS per A.D.A. criteria. Potassium [Moles/Vol] 4.2 mmol/L 3.5-5.1 [facility] Work Phone: Sodium [Moles/Vol] 137 mmol/L 136-145 [facility] Work Phone: WBC (Bld) [#/Vol] 4.4 10*3/uL 4.4-11.0 [facility] Work Phone: Blood erythrocytes count (nu mber/volume)on 04-02-2022 RBC (Bld) [#/Vol] 4.23 10*6/uL 4.2-5.4 [facility]: Blood hemoglobin measurement (mass/volume)on 04-02-2022 Hemoglobin (Bld) [Mass/Vol] 13.1 g/dL 12.0-15.0 [facility] Work Phone: Blood platelet mean volumeon 04-02-2022 Platelet mean volume (Bld) [Entitic vol] 9.9 fL 6.2-12.0 [facility] Work Phone: Determination of erythrocyte mean corpuscular volume (MCV)on 04-02-2022 MCV (RBC) [Entitic vol] 97.9 fL 81-99 [facility] Work Phone: Hematocrit Auto (Bld) [Volum e fraction]on 04-02-2022 Hematocrit (Bld) [Volume fraction] 41.4 % 37-47 [facility] Work Phone: Laboratory - Chemistry and C hemistry - challengeon 04-02-2022 CO2 [Moles/Vol] 31.0 mmol/L 21.0-32.0 [facility] Work Phone: Urea nitrogen/Creatinine [Mass ratio] 16.5 mg/mg 10-20 [facility] Work Phone: Laboratory - Hematology and Cell countson 04-02-2022 Erythrocyte distribution width (RBC) [Entitic vol] 45.6 fL 35.1-43.9 [facility] Work Phone: Erythrocyte distribution width (RBC) [Ratio] 12.7 % 11.6-14.6 [facility] Work Phone: MCH (RBC) [Entitic mass] 31.0 pg 27.0-32.0 [facility] Work Phone: MCHC Auto (RBC) [Mass/Vol]on 04-02-2022 MCHC (RBC) [Mass/Vol] 31.6 g/dL 32-36 [facility] Work Phone: No Panel Informationon 04-02 Estimated GFR (MDRD) Amer 70 mL/min >60 [facility] Work Phone: Comment on above: GFR Calc Estimated GFR (MDRD) Non-Af Amer 58 mL/min >60 [facility] Work Phone: Comment on above: Non- GFR Calc Parathyroid Hormone (Intact) 45.7 pg/mL 18.4-80.1 [facility] Work Phone: Platelets bldon 04-02-2022 Platelets (Bld) [#/Vol] 185 10*3/uL 150-450 [facility] Work Phone: Serum or plasma albumin gio urement (mass/volume)on 04-02-2022 Albumin [Mass/Vol] 3.8 g/dL 3.2-5.0 [facility] Work Phone: Serum or plasma calcium gio urement (mass/volume)on 04-02-2022 Calcium [Mass/Vol] 9.4 mg/dL 8.5-10.1 [facility] Work Phone: Serum or plasma creatinine m easurement (mass/volume)on 04-02-2022 Creatinine [Mass/Vol] 0.97 mg/dL 0.55-1.02 [facility] Work Phone: Comment on above: The validity of the calculated GFR & GFRAA in patients over 70 years has not been determined. Clinical correlation is essential. Serum or plasma urea nitroge n measurement (mass/volume)on 04-02-2022 Urea nitrogen [Mass/Vol] 16 mg/dL 7-18 [facility] Work Phone: UA DIP, URINE (POC)on 2021 BILIRUBIN UA (POCT) Negative Negative [facility] CLARITY UA (POCT) Clear [facility] COLOR UA (POCT) Yellow [facility] GLUCOSE UA (POCT) Negative Negative mg/dL [facility] HEMOGLOBIN/BLOOD UA (POCT) Moderate Abnormal Negative [facility] KETONE UA (POCT) Negative Negative mg/dL [facility] LEUKOCYTES UA (POCT) Negative Negative [facility] NITRITE UA (POCT) Negative Negative [facility] PH UA (POCT) 6.0 4.5 - 8.0 [facility] Protein Ql (U) Negative Negative mg/dL [facility] SPECIFIC GRAVITY UA (POCT) 1.015 1.005 - 1.030 [facility] UROBILINOGEN UA (POCT) 0.2 E.U./dL Jolie l E.U./dL [facility] .Auto Diffon 02-26-2022 Basophil, Absolute 0.0 10 3/mcL Normal 0.0-0.2 [facility] ([place]) Comment on above: Performed By: #### B MP, GFR #### [address] [address] Basophils/100 WBC (Bld) 0.1 % Normal 0.0-2.5 [facility] ([place]) Comment on above: Performed By: #### B MP, GFR #### [address] [address] Eosinophil, Absolute 0.0 10 3/mcL Normal 0.0-0.4 [facility] ([place]) Comment on above: Performed By: #### B MP, GFR #### [address] [address] Eosinophils/100 WBC (Bld) 0.0 % Normal 0.0-7.0 [facility] ([place]) Comment on above: Performed By: #### B MP, GFR #### [address] [address] Lymphocyte, Absolute 0.4 10 3/mcL Low 0.8-3.9 [facility] ([place]) Comment on above: Performed By: #### B MP, GFR #### [address] [address] Lymphocytes/100 WBC (Bld) 4.5 % Low 10.0-50.0 [facility] ([place]) Comment on above: Performed By: #### B MP, GFR #### [address] [address] Monocyte, Absolute 0.6 10 3/mcL Normal 0.2-1.0 [facility] ([place]) Comment on above: Performed By: #### B MP, GFR #### [address] [address] Monocytes/100 WBC (Bld) 5.7 % Normal 1.7-13.0 [facility] ([place]) Comment on above: Performed By: #### B MP, GFR #### [address] [address] Neutrophils/100 WBC (Bld) 89.7 % High 37.0-80.0 [facility] ([place]) Comment on above: Performed By: #### B MP, GFR #### [address] [address] .GFRon 02-26-2022 GFR 51 ml/min/1.73sqm Normal [facility] ([place]) Comment on above: Result Comment: GFR Population mean for , Non- Americans Ages 20-29 = 116 mL/min/1.73 sq.m. Ages 30-39 = 107 mL/min/1.73 sq.m. Ages 40-49 = 99 mL/min/1.73 sq.m. Ages 50-59 = 93 mL/min/1.73 sq.m. Ages 60-69 = 85 mL/min/1.73 sq.m. Ages 70+ = 75 mL/min/1.73 sq.m. Chronic Kidney Disease: Less than 60 mL/min/1.73 square meters End Stage Renal Disease: Less than 15 mL/min/1.73 square meters Performed By: #### B MP, GFR #### [address] [address] GFR Non- 42 ml/min/1.73sqm Normal [facility] ([place] Comment on above: Result Comment: GFR Population mean for , Non- Americans Ages 20-29 = 116 mL/min/1.73 sq.m. Ages 30-39 = 107 mL/min/1.73 sq.m. Ages 40-49 = 99 mL/min/1.73 sq.m. Ages 50-59 = 93 mL/min/1.73 sq.m. Ages 60-69 = 85 mL/min/1.73 sq.m. Ages 70+ = 75 mL/min/1.73 sq.m. Chronic Kidney Disease: Less than 60 mL/min/1.73 square meters End Stage Renal Disease: Less than 15 mL/min/1.73 square meters Performed By: #### B MP, GFR #### [address] [address] .MDWon 02-26-2022 Monocyte Distribution Width Not performed Normal 0.00-20.00 [facility] ([place] Comment on above: Result Comment: MDW testing performed only on adult ER patients between the ages of 18-89 years. Performed By: #### B MP, GFR #### [address] [address] .NEUABSon 02-26-2022 Neutrophil, Absolute 8.7 10 3/mcL High 2.9-6.2 [facility] ([place]) Comment on above: Performed By: #### B MP, GFR #### [address] [address] BMPon 02-26-2022 BUN/Creatinine Ratio 16 ratio Normal 7-27 [facility] ([place]) Comment on above: Performed By: #### B MP, GFR #### [address] [address] Calcium [Mass/Vol] 8.8 mg/dL Normal 8.4-10.2 [facility] ([place]) Comment on above: Performed By: #### B MP, GFR #### [address] [address] Chloride [Moles/Vol] 106 mmol/L Normal 98-107 [facility] ([place] Comment on above: Performed By: #### B MP, GFR #### [address] [address] CO2 [Moles/Vol] 29 mmol/L Normal 23-31 [facility] ([place] Comment on above: Performed By: #### B MP, GFR #### [address] [address] Creatinine [Mass/Vol] 1.21 mg/dL High 0.55-1.02 [facility] ([place]) Comment on above: Performed By: #### B MP, GFR #### [address] [address] Electrolyte Balance 6.0 mEq/L Normal 4.0-15.0 [facility] ([place]) Comment on above: Performed By: #### B MP, GFR #### [address] [address] Glucose [Mass/Vol] 128 mg/dL High 83-110 [facility] ([place]) Comment on above: Performed By: #### B MP, GFR #### [address] [address] Potassium [Moles/Vol] 4.9 mmol/L Normal 3.5-5.1 [facility] ([place]) Comment on above: Performed By: #### B MP, GFR #### [address] [address] Sodium [Moles/Vol] 141 mmol/L Normal 136-145 [facility] ([place]) Comment on above: Performed By: #### B MP, GFR #### [address] [place] [address] Urea nitrogen [Mass/Vol] 19 mg/dL High 7-18 [facility] ([place] Comment on above: Performed By: #### B MP, GFR #### [place] [address] CBCon 02-26-2022 Erythrocyte distribution width (RBC) [Ratio] 13.0 % Normal 11.5-14.5 [facility] ([place] Comment on above: Performed By: #### B MP, GFR #### [place] [address] Hematocrit (Bld) [Volume fraction] 34.3 % Low 37.0-47.0 [facility] ([place] Comment on above: Performed By: #### B MP, GFR #### [address] [address] Hgb 11.6 G/dL Low 12.0-16.0 [facility] ([place] Comment on above: Performed By: #### B MP, GFR #### [address] [address] MCH (RBC) [Entitic mass] 31.2 pg Normal 27.0-31.2 [facility] ([place] Comment on above: Performed By: #### B MP, GFR #### [address] [address] MCHC 33.8 G/dL Normal 33.0-37.0 [facility] ([place] Comment on above: Performed By: #### B MP, GFR #### [place] [address] MCV (RBC) [Entitic vol] 92.3 fL Normal 80.0-94.0 [facility] ([place] Comment on above: Performed By: #### B MP, GFR #### [place] [address] Platelet 137 10 3/mcL Normal 130-400 [facility] ([place] Comment on above: Performed By: #### B MP, GFR #### [address] [address] Platelet mean volume (Bld) [Entitic vol] 8.5 fL Normal 7.4-10.4 [facility] ([place] Comment on above: Performed By: #### B MP, GFR #### [address] [place], [place] [address] RBC 3.71 10 6/mcL Low 4.20-5.40 [facility] ([place] Comment on above: Performed By: #### B MP, GFR #### [id number] [place], [place] [address] WBC 9.7 10 3/mcL Normal 4.6-10.8 [facility] ([place] Comment on above: Performed By: #### B MP, GFR #### [address] [address] LABORATORYOrdered By: Thania Cisneros on 02-26-2022 Basophil, Absolute 0.0 103/mcL Invalid Interpretation Code 0.0 - 0.2 10^3/mcL AO Workflow SS Basophils/100 WBC (Bld) 0.1 % Invalid Interpretation Code 0.0 - 2.5 % AO Workflow SS Calcium [Mass/Vol] 8.8 mg/dL Invalid Interpretation Code 8.4 - 10.2 mg/dL AO ADM SS Chloride [Moles/Vol] 106 mmol/L Invalid Interpretation Code 98 - 107 mmol/L AO ADM SS CO2 [Moles/Vol] 29 mmol/L Invalid Interpretation Code 23 - 31 mmol/L AO ADM SS Creatinine [Mass/Vol] 1.21 mg/dL Invalid Interpretation Code 0.55 - 1.02 mg/dL AO ADM SS Electrolyte Balance 6.0 mEq/L Invalid Interpretation Code 4.0 - 15.0 mEq/L AO ADM SS Eosinophil, Absolute 0.0 103/mcL Invalid Interpretation Code 0.0 - 0.4 10^3/mcL AO Workflow SS Eosinophils/100 WBC (Bld) 0.0 % Invalid Interpretation Code 0.0 - 7.0 % AO Workflow SS Erythrocyte distribution width (RBC) [Ratio] 13.0 % Invalid Interpretation Code 11.5 - 14.5 % AO Workflow SS Glucose [Mass/Vol] 128 mg/dL Invalid Interpretation Code 83 - 110 mg/dL AO ADM SS Hematocrit (Bld) [Volume fraction] 34.3 % Invalid Interpretation Code 37.0 - 47.0 % AO Workflow SS Hemoglobin (Bld) [Mass/Vol] 11.6 G/dL Invalid Interpretation Code 12.0 - 16.0 G/dL AO Workflow SS Lymphocyte, Absolute 0.4 103/mcL Invalid Interpretation Code 0.8 - 3.9 10^3/mcL AO Workflow SS Lymphocytes/100 WBC (Bld) 4.5 % Invalid Interpretation Code 10.0 - 50.0 % AO Workflow SS MCH (RBC) [Entitic mass] 31.2 pg Invalid Interpretation Code 27.0 - 31.2 pg AO Workflow SS MCHC 33.8 G/dL Invalid Interpretation Code 33.0 - 37.0 G/dL AO Workflow SS MCV (RBC) [Entitic vol] 92.3 fL Invalid Interpretation Code 80.0 - 94.0 fL AO Workflow SS Monocyte, Absolute 0.6 103/mcL Invalid Interpretation Code 0.2 - 1.0 10^3/mcL AO Workflow SS Monocytes/100 WBC (Bld) 5.7 % Invalid Interpretation Code 1.7 - 13.0 % AO Workflow SS Neutrophil, Absolute 8.7 103/mcL Invalid Interpretation Code 2.9 - 6.2 10^3/mcL AO Workflow SS Neutrophils/100 WBC (Bld) 89.7 % Invalid Interpretation Code 37.0 - 80.0 % AO Workflow SS Platelet mean volume (Bld) [Entitic vol] 8.5 fL Invalid Interpretation Code 7.4 - 10.4 fL AO Workflow SS Platelets (Bld) [#/Vol] 137 103/mcL Invalid Interpretation Code 130 - 400 10^3/mcL AO Workflow SS Potassium [Moles/Vol] 4.9 mmol/L Invalid Interpretation Code 3.5 - 5.1 mmol/L AO ADM SS RBC (Bld) [#/Vol] 3.71 106/mcL Invalid Interpretation Code 4.20 - 5.40 10^6/mcL AO Workflow SS Sodium [Moles/Vol] 141 mmol/L Invalid Interpretation Code 136 - 145 mmol/L AO ADM SS Urea nitrogen [Mass/Vol] 19 mg/dL Invalid Interpretation Code 7 - 18 mg/dL AO ADM SS Urea nitrogen/Creatinine [Mass ratio] 16 ratio Invalid Interpretation Code 7 - 27 ratio AO ADM SS WBC 9.7 103/mcL Invalid Interpretation Code 4.6 - 10.8 10^3/mcL AO Workflow SS LABORATORYOrdered By: SYSTEM SYSTEM on 02-26-2022 GFR 51 ml/min/1.73sqm Invalid Interpretation Code AO Chemistry S GFR Non- 42 ml/min/1.73sqm Invalid Interpretation Code AO Chemistry S Monocyte distribution width Auto (Bld) [Entitic vol] Not Performed 1 *NA* (02/26/22 5:02 AM) Invalid Interpretation Code 0.00 - 20.00 AO Hematology S Comment on above: Result Comment: MDW testing performed only on adult ER patients between the ages of 18-89 years. Gel ABOon 02-25-2022 ABO/Rh Interp Positive Invalid Interpretation Code [facility] ([place]) Comment on above: Performed By: #### B MP, GFR #### [address] [address] Gel ABSon 02-25-2022 Antibody Screen Gel Negative Normal [facility] ([place]) Comment on above: Performed By: #### B MP, GFR #### [address] [address] LABORATORYOrdered By: Jayna alcantar on 02-25-2022 Glucose [Mass/Vol] 95 mg/dL Invalid Interpretation Code 82 - 115 mg/dL [facility] Work Phone: LABORATORYOrdered By: Ann Marie Herrera on 02-25-2022 ABO/Rh Interp Positive Invalid Interpretation Code AO BB SS Antibody Screen Gel Negative ABSC (02/25/22 7:08 AM) Invalid Interpretation Code AO BB SS XR KNEE 1 OR 2 VIEWS RIGHTon 02-25-2022 XR KNEE 1 OR 2 VIEWS RIGHT ORIGINAL EXAMINATION: TWO XRAY VIEWS OF THE RIGHT KNEE 02/25/2022 10:32 am COMPARISON: CT right knee 02/10/2022 HISTORY: ORDERING SYSTEM PROVIDED HISTORY: Reason for Exam: Status Post Arthroplasty FINDINGS: Postsurgical changes related to total right knee arthroplasty placement. Anterior cutaneous clips are present. Hardware appears intact, alignment maintained. No acute bony fracture identified. Subcutaneous emphysema and retropatellar gas are postsurgical. Femoropopliteal atherosclerosis. IMPRESSION: Postsurgical changes related to total right knee arthroplasty. No evidence of hardware failure. Interpreted by: Gelacio Porras Preliminary Report By: Gelacio Porras Electronically signed By Gelacio Porras Dictated Date: 02/25/2022 10:38:09 AM Prelim Date: 02/25/2022 10:40:02 AM Sign Date: 02/25/2022 10:40:02 AM Ordering Provider: BRANDON YATES [facility]) CT KNEE W/O CONTRAST RIGHTon 02-11-2022 CT KNEE W/O CONTRAST RIGHT ORIGINAL EXAMINATION: CT OF THE RIGHT KNEE WITHOUT CONTRAST02/10/2022 12:[address] of the right knee without contrast TECHNIQUE: Axial images of the knee are obtained with sagittal and coronal reconstructions. Limited axial imaging is also performed through the ipsilateral hip and ankle joints. This exam was performed according to our departmental dose-optimization program which includes automated exposure control, adjustment of the mA and/or kVp according to patient size and/or use of iterative reconstruction technique where applicable. COMPARISON: None HISTORY: ORDERING SYSTEM PROVIDED HISTORY: Reason for Exam: Varus deformity, not elsewhere classified, right knee, chronic knee pain, FINDINGS: Medial compartment: Mild compartment narrowing, subchondral sclerosis and minimal marginal spurring. There is calcification of the medial collateral ligament suggesting remote injury. Lateral compartment: Subchondral sclerosis without significant compartment narrowing. Patellofemoral compartment: No patellar maltracking. Calcification adjacent to the medial pole of the patella probably remote injury. Other: There is no significant joint effusion. Mild calcification of arteries in the lower leg. Hip: Limited axial images through the hip joint. 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 Ankle: Limited axial images of the ankle are also obtained. No aggressive bone lesion. Suspect cystic osteochondral lesions in the medial dome of the talus and the tibial plafond. IMPRESSION: Osteoarthritis in the knee that is more prominent in the medial compartment. Evidence of remote injury to the medial collateral ligament and medial patellofemoral ligament. Interpreted by: Serg Kenny MD Preliminary Report By: Serg Kenny MD Electronically signed By Serg Kenny MD Dictated Date: 02/11/2022 10:48:14 AM Prelim Date: 02/11/2022 10:56:02 AM Sign Date: 02/11/2022 10:56:02 AM Ordering Provider: BRANDON YATES [facility] ([place]) .Auto Diffon 02-10-2022 Basophil, Absolute 0.0 10 3/mcL Normal 0.0-0.2 [facility] ([place] Comment on above: Performed By: #### B MP, GFR #### [address] [address] Basophils/100 WBC (Bld) 0.9 % Normal 0.0-2.5 [facility] ([place] Comment on above: Performed By: #### B MP, GFR #### [address] [address] Eosinophil, Absolute 0.1 10 3/mcL Normal 0.0-0.4 [facility] ([place]) Comment on above: Performed By: #### B MP, GFR #### [address] [address] Eosinophils/100 WBC (Bld) 2.8 % Normal 0.0-7.0 [facility] ([place] Comment on above: Performed By: #### B MP, GFR #### [address] [address] Lymphocyte, Absolute 0.5 10 3/mcL Low 0.8-3.9 [facility] ([place] Comment on above: Performed By: #### B MP, GFR #### [address] [address] Lymphocytes/100 WBC (Bld) 12.4 % Normal 10.0-50.0 [facility] ([place] Comment on above: Performed By: #### B MP, GFR #### [address] [address] Monocyte, Absolute 0.3 10 3/mcL Normal 0.2-1.0 [facility] ([place] Comment on above: Performed By: #### B MP, GFR #### [address] [address] Monocytes/100 WBC (Bld) 6.5 % Normal 1.7-13.0 [facility] ([place] Comment on above: Performed By: #### B MP, GFR #### [address] [address] Neutrophils/100 WBC (Bld) 77.4 % Normal 37.0-80.0 [facility] ([place] Comment on above: Performed By: #### B MP, GFR #### [place] [address] .GFRon 02-10-2022 GFR Non- 52 ml/min/1.73sqm Normal [facility] ([place]) Comment on above: Result Comment: GFR Population mean for , Non- Americans Ages 20-29 = 116 mL/min/1.73 sq.m. Ages 30-39 = 107 mL/min/1.73 sq.m. Ages 40-49 = 99 mL/min/1.73 sq.m. Ages 50-59 = 93 mL/min/1.73 sq.m. Ages 60-69 = 85 mL/min/1.73 sq.m. Ages 70+ = 75 mL/min/1.73 sq.m. Chronic Kidney Disease: Less than 60 mL/min/1.73 square meters End Stage Renal Disease: Less than 15 mL/min/1.73 square meters Performed By: #### B MP, GFR #### [address] [address] GFR 63 ml/min/1.73sqm Normal [facility] ([place] Comment on above: Result Comment: GFR Population mean for , Non- Americans Ages 20-29 = 116 mL/min/1.73 sq.m. Ages 30-39 = 107 mL/min/1.73 sq.m. Ages 40-49 = 99 mL/min/1.73 sq.m. Ages 50-59 = 93 mL/min/1.73 sq.m. Ages 60-69 = 85 mL/min/1.73 sq.m. Ages 70+ = 75 mL/min/1.73 sq.m. Chronic Kidney Disease: Less than 60 mL/min/1.73 square meters End Stage Renal Disease: Less than 15 mL/min/1.73 square meters Performed By: #### B MP, GFR #### [address] [place], [place] [address] .MDWon 02-10-2022 Monocyte Distribution Width Not performed Normal 0.00-20.00 [facility] ([place] Comment on above: Result Comment: MDW testing performed only on adult ER patients between the ages of 18-89 years. Performed By: #### B MP, GFR #### [address] [address] .NEUABSon 02-10-2022 Neutrophil, Absolute 3.2 10 3/mcL Normal 2.9-6.2 [facility] ([place]) Comment on above: Performed By: #### B MP, GFR #### [address] [address] A1Con 02-10-2022 HbA1c (Bld) [Mass fraction] 6.0 % Normal 4.3-6.4 [facility] ([place] Comment on above: Performed By: #### B MP, GFR #### [address] [address] ALBon 02-10-2022 Albumin Level 4.1 G/dL Normal 3.4-4.8 [facility] ([place] Comment on above: Performed By: #### B MP, GFR #### [address] [address] BMPon 02-10-2022 BUN/Creatinine Ratio 29 ratio High 7-27 [facility] ([place] Comment on above: Performed By: #### A BOG, GFR, BMP, A1C, ALB, ANSG #### [address] [address] Calcium [Mass/Vol] 9.4 mg/dL Normal 8.4-10.2 [facility] ([place]) Comment on above: Performed By: #### A BOG, GFR, BMP, A1C, ALB, ANSG #### [address] [address] Chloride [Moles/Vol] 104 mmol/L Normal 98-107 [facility] ([place] Comment on above: Performed By: #### A BOG, GFR, BMP, A1C, ALB, ANSG #### [address] [place] [address] CO2 [Moles/Vol] 29 mmol/L Normal 23-31 [facility] ([place] Comment on above: Performed By: #### A BOG, GFR, BMP, A1C, ALB, ANSG #### [address] [address] Creatinine [Mass/Vol] 1.02 mg/dL Normal 0.55-1.02 [facility] ([place]) Comment on above: Performed By: #### A BOG, GFR, BMP, A1C, ALB, ANSG #### [address] [address] Electrolyte Balance 7.0 mEq/L Normal 4.0-15.0 [facility] ([place]) Comment on above: Performed By: #### A BOG, GFR, BMP, A1C, ALB, ANSG #### [place] [address] Glucose [Mass/Vol] 111 mg/dL High 83-110 [facility] ([place]) Comment on above: Performed By: #### A BOG, GFR, BMP, A1C, ALB, ANSG #### [address] [address] Potassium [Moles/Vol] 4.4 mmol/L Normal 3.5-5.1 [facility] ([place]) Comment on above: Performed By: #### A BOG, GFR, BMP, A1C, ALB, ANSG #### [address] [address] Sodium [Moles/Vol] 140 mmol/L Normal 136-145 [facility] ([place]) Comment on above: Performed By: #### A BOG, GFR, BMP, A1C, ALB, ANSG #### [address] [address] Urea nitrogen [Mass/Vol] 30 mg/dL High 7-18 [facility] ([place] Comment on above: Performed By: #### A BOG, GFR, BMP, A1C, ALB, ANSG #### [place] [id number] CBCon 02-10-2022 Erythrocyte distribution width (RBC) [Ratio] 13.1 % Normal 11.5-14.5 [facility] ([place] Comment on above: Order Comment: Pre-A dmission Testing Performed By: #### B MP, GFR #### [place] [address] Hematocrit (Bld) [Volume fraction] 41.3 % Normal 37.0-47.0 [facility] ([place] Comment on above: Order Comment: Pre-A dmission Testing Performed By: #### B MP, GFR #### [place] [address] Hgb 13.8 G/dL Normal 12.0-16.0 [facility] ([place] Comment on above: Order Comment: Pre-A dmission Testing Performed By: #### B MP, GFR #### [place] [address] MCH (RBC) [Entitic mass] 30.6 pg Normal 27.0-31.2 [facility] ([place] Comment on above: Order Comment: Pre-A dmission Testing Performed By: #### B MP, GFR #### [place] [address] MCHC 33.5 G/dL Normal 33.0-37.0 [facility] ([place] Comment on above: Order Comment: Pre-A dmission Testing Performed By: #### B MP, GFR #### [place] [address] MCV (RBC) [Entitic vol] 91.5 fL Normal 80.0-94.0 [facility] ([place] Comment on above: Order Comment: Pre-A dmission Testing Performed By: #### B MP, GFR #### [place] [address] Platelet 181 10 3/mcL Normal 130-400 [facility] ([place] Comment on above: Order Comment: Pre-A dmission Testing Performed By: #### B MP, GFR #### [place] [address] Platelet mean volume (Bld) [Entitic vol] 8.3 fL Normal 7.4-10.4 [facility] ([place] Comment on above: Order Comment: Pre-A dmission Testing Performed By: #### B MP, GFR #### [address] [address] RBC 4.51 10 6/mcL Normal 4.20-5.40 [facility] ([place] Comment on above: Order Comment: Pre-A dmission Testing Performed By: #### B MP, GFR #### [address] [address] WBC 4.1 10 3/mcL Low 4.6-10.8 [facility] ([place] Comment on above: Order Comment: Pre-A dmission Testing Performed By: #### B MP, GFR #### [address] [address] Gel ABOon 02-10-2022 ABO/Rh Interp Positive Invalid Interpretation Code [facility] ([place] Comment on above: Order Comment: SURG EDIE 7/5 -AC Performed By: #### A BOG, GFR, BMP, A1C, ALB, ANSG #### [address] [address] Gel ABSon 02-10-2022 Antibody Screen Gel Negative Normal [facility] ([place]) Comment on above: Order Comment: SURG EDIE 7/5 -AC Performed By: #### A BOG, GFR, BMP, A1C, ALB, ANSG #### [address] [address] LABORATORYOrdered By: Bradley Hernandez on 02-10-2022 ABO/Rh Interp Positive Invalid Interpretation Code AO BB SS Antibody Screen Gel Negative ABSC (02/10/22 11:35 AM) Invalid Interpretation Code AO BB SS LABORATORYOrdered By: Thania Cisneros on 02-10-2022 Albumin BCP dye [Mass/Vol] 4.1 G/dL Invalid Interpretation Code 3.4 - 4.8 G/dL AO ADM SS Calcium [Mass/Vol] 9.4 mg/dL Invalid Interpretation Code 8.4 - 10.2 mg/dL AO ADM SS Chloride [Moles/Vol] 104 mmol/L Invalid Interpretation Code 98 - 107 mmol/L AO ADM SS CO2 [Moles/Vol] 29 mmol/L Invalid Interpretation Code 23 - 31 mmol/L AO ADM SS Creatinine [Mass/Vol] 1.02 mg/dL Invalid Interpretation Code 0.55 - 1.02 mg/dL AO ADM SS Electrolyte Balance 7.0 mEq/L Invalid Interpretation Code 4.0 - 15.0 mEq/L AO ADM SS Glucose [Mass/Vol] 111 mg/dL Invalid Interpretation Code 83 - 110 mg/dL AO ADM SS HbA1c (Bld) [Mass fraction] 6.0 % Invalid Interpretation Code 4.3 - 6.4 % AO ADM SS Potassium [Moles/Vol] 4.4 mmol/L Invalid Interpretation Code 3.5 - 5.1 mmol/L AO ADM SS Sodium [Moles/Vol] 140 mmol/L Invalid Interpretation Code 136 - 145 mmol/L AO ADM SS Urea nitrogen [Mass/Vol] 30 mg/dL Invalid Interpretation Code 7 - 18 mg/dL AO ADM SS Urea nitrogen/Creatinine [Mass ratio] 29 ratio Invalid Interpretation Code 7 - 27 ratio AO ADM SS LABORATORYOrdered By: An nMarie Herrera on 02-10-2022 Basophil, Absolute 0.0 103/mcL Invalid Interpretation Code 0.0 - 0.2 10^3/mcL AO Workflow SS Basophils/100 WBC (Bld) 0.9 % Invalid Interpretation Code 0.0 - 2.5 % AO Workflow SS Eosinophil, Absolute 0.1 103/mcL Invalid Interpretation Code 0.0 - 0.4 10^3/mcL AO Workflow SS Eosinophils/100 WBC (Bld) 2.8 % Invalid Interpretation Code 0.0 - 7.0 % AO Workflow SS Erythrocyte distribution width (RBC) [Ratio] 13.1 % Invalid Interpretation Code 11.5 - 14.5 % AO Workflow SS Hematocrit (Bld) [Volume fraction] 41.3 % Invalid Interpretation Code 37.0 - 47.0 % AO Workflow SS Hemoglobin (Bld) [Mass/Vol] 13.8 G/dL Invalid Interpretation Code 12.0 - 16.0 G/dL AO Workflow SS Lymphocyte, Absolute 0.5 103/mcL Invalid Interpretation Code 0.8 - 3.9 10^3/mcL AO Workflow SS Lymphocytes/100 WBC (Bld) 12.4 % Invalid Interpretation Code 10.0 - 50.0 % AO Workflow SS MCH (RBC) [Entitic mass] 30.6 pg Invalid Interpretation Code 27.0 - 31.2 pg AO Workflow SS MCHC 33.5 G/dL Invalid Interpretation Code 33.0 - 37.0 G/dL AO Workflow SS MCV (RBC) [Entitic vol] 91.5 fL Invalid Interpretation Code 80.0 - 94.0 fL AO Workflow SS Monocyte, Absolute 0.3 103/mcL Invalid Interpretation Code 0.2 - 1.0 10^3/mcL AO Workflow SS Monocytes/100 WBC (Bld) 6.5 % Invalid Interpretation Code 1.7 - 13.0 % AO Workflow SS Neutrophil, Absolute 3.2 103/mcL Invalid Interpretation Code 2.9 - 6.2 10^3/mcL AO Workflow SS Neutrophils/100 WBC (Bld) 77.4 % Invalid Interpretation Code 37.0 - 80.0 % AO Workflow SS Platelet mean volume (Bld) [Entitic vol] 8.3 fL Invalid Interpretation Code 7.4 - 10.4 fL AO Workflow SS Platelets (Bld) [#/Vol] 181 103/mcL Invalid Interpretation Code 130 - 400 10^3/mcL AO Workflow SS RBC (Bld) [#/Vol] 4.51 106/mcL Invalid Interpretation Code 4.20 - 5.40 10^6/mcL AO Workflow SS WBC 4.1 103/mcL Invalid Interpretation Code 4.6 - 10.8 10^3/mcL AO Workflow SS LABORATORYOrdered By: SYSTEM SYSTEM on 02-10-2022 GFR 63 ml/min/1.73sqm Invalid Interpretation Code AO Chemistry S GFR Non- 52 ml/min/1.73sqm Invalid Interpretation Code AO Chemistry S Monocyte distribution width Auto (Bld) [Entitic vol] Not Performed 1 *NA* (02/10/22 11:35 AM) Invalid Interpretation Code 0.00 - 20.00 AO Hematology S Comment on above: Result Comment: MDW testing performed only on adult ER patients between the ages of 18-89 years. XR Knee - bilateral 4 Viewso n 05-01-2021 IMPRESSION: Mild osteoarthrosis of the knees. Prepatellar soft tissue swelling.. Lance Crewmember: PSCB Transcribe Date/Time: May 01 2021 4:09P Dictated by : MAULIK CARDENAS MD This examination was interpreted and the report reviewed and electronically signed by: MAULIK CARDENAS MD on May 01 2021 4:10PM [facility] DIVISION OF RADIOLOGY * * *Final Report* * * DATE OF EXAM: May 01 2021 4:01PM WOX [id number] - XR KNEE 4V AP/PA/LAT/MERCH DOC / PROCEDURE REASON: multiple diagnoses * * * * Physician Interpretation * * * * Knee radiographs HISTORY: 86 years old Clinical information: Chronic pain of both knees Chronic pain of both knees Chronic pain of both knees Diffuse bilateral knee pain increasing over time without injury TECHNIQUE: Images: XR KNEE 4V AP/PA/LAT/MERCH DOC Comparison: None. RESULT: Findings: LEFT KNEE: Joint spaces are maintained. Minimal osteophyte formation involving the posterior superior aspect of the patella. No fracture or dislocation. No joint effusion. Prepatellar soft tissue swelling. RIGHT KNEE: Mild narrowing of medial compartment joint space. Mild osteophyte formation involving the posterior superior aspect of the patella. No fracture or dislocation. No joint effusion. Prepatellar soft tissue swelling. DIVISION OF RADIOLOGY Provider, [facility] - 05/01/2021 * * *Final Report* * * DATE OF EXAM: May 01 2021 4:01PM WOX [id number] - XR KNEE 4V AP/PA/LAT/MERCH DOC / PROCEDURE REASON: multiple diagnoses * * * * Physician Interpretation * * * * Knee radiographs HISTORY: 86 years old Clinical information: Chronic pain of both knees Chronic pain of both knees Chronic pain of both knees Diffuse bilateral knee pain increasing over time without injury TECHNIQUE: Images: XR KNEE 4V AP/PA/LAT/MERCH DOC Comparison: None. RESULT: Findings: LEFT KNEE: Joint spaces are maintained. Minimal osteophyte formation involving the posterior superior aspect of the patella. No fracture or dislocation. No joint effusion. Prepatellar soft tissue swelling. RIGHT KNEE: Mild narrowing of medial compartment joint space. Mild osteophyte formation involving the posterior superior aspect of the patella. No fracture or dislocation. No joint effusion. Prepatellar soft tissue swelling. IMPRESSION IMPRESSION: Mild osteoarthrosis of the knees. Prepatellar soft tissue swelling.. Lance Crewmember: YAMIL Transcribe Date/Time: May 01 2021 4:09P Dictated by : MAULIK CARDENAS MD This examination was interpreted and the report reviewed and electronically signed by: MAULIK CARDENAS MD on May 01 2021 4:10PM EST [facility] Radiology Study observation (narrative) [facility] XR Knee - bilateral 4 ViewsO rdered By: [facility] Provider on 05-01-2021 [facility] Vital Signs Date Time Vital Sign Value Performing Clinician Facility 03-13-2025 09:130400 Body mass index (BMI) [Ratio] 20.41 kg/m2 Jeffy Clark Jr., MD Work Phone: [facility] 03-13-2025 09:13-0400 Body weight 48.99 kg Jeffy Clark Jr., MD Work Phone: [facility] 03-13-2025 09:13-0400 Diastolic blood pressure 66 mm[Hg] Jeffy Clark Jr., MD Work Phone: [facility] 03-13-2025 09:13-0400 Heart rate 60 /min Jeffy Clark Jr., MD Work Phone: [facility] 03-13-2025 09:13-0400 Respiratory rate 16 /min Jeffy Clark Jr., MD Work Phone: [facility] 03-13-2025 09:13-0400 SaO2% (BldA) [Mass fraction] 99 % Jeffy Clark Jr., MD Work Phone: [facility] 03-13-2025 09:13-0400 Systolic blood pressure 121 mm[Hg] Jeffy Clark Jr., MD Work Phone: [facility] 02-28-2025 11:41-0400 Diastolic blood pressure 50 mm[Hg] Dr. Jeffy Fields MD Work Phone: [facility] 02-28-2025 11:41-0400 Systolic blood pressure 150 mm[Hg] Dr. Jeffy Fields MD Work Phone: [facility] 02-28-2025 11:31-0400 Heart rate 65 /min Dr. Jeffy Fields MD Work Phone: [facility] 02-28-2025 11:31-0400 Respiratory rate 16 /min Dr. Jeffy Fields MD Work Phone: [facility] 02-28-2025 11:18-0400 Body height 157.[address] Jeffy Fields MD Work Phone: [facility] 02-28-2025 11:18-0400 Body mass index (BMI) [Ratio] 19.9 kg/m2 Dr. Jeffy Fields MD Work Phone: [facility] 02-28-2025 11:18-0400 Body weight 49.[address] Jeffy Fields MD Work Phone: [facility] 02-20-2025 14:11-0400 Body height 154.9 cm Zenon Huston MD Work Phone: [facility] 02-20-2025 14:11-0400 Body mass index (BMI) [Ratio] 20.03 kg/m2 Zenon Huston MD Work Phone: [facility] 02-20-2025 14:11-0400 Body weight 48.08 kg Zenon Huston MD Work Phone: [facility] 01-18-2025 13:08-0400 Body height 154.9 cm Zenon Huston MD Work Phone: [facility] 01-18-2025 13:08-0400 Body mass index (BMI) [Ratio] 20.03 kg/m2 Zenon Huston MD Work Phone: [facility] 01-18-2025 13:08-0400 Body weight 48.08 kg Zenon Huston MD Work Phone: [facility] 01-18-2025 13:08-0400 Diastolic blood pressure 71 mm[Hg] Zenon Huston MD Work Phone: [facility] 01-18-2025 13:08-0400 Systolic blood pressure 151 mm[Hg] Zenon Huston MD Work Phone: [facility] 01-11-2025 09:58-0400 Body height 154.9 cm Zenon Huston MD Work Phone: [facility] 01-11-2025 09:58-0400 Body mass index (BMI) [Ratio] 20.03 kg/m2 Zenon Huston MD Work Phone: [facility] 01-11-2025 09:58-0400 Body weight 48.08 kg Zenon Huston MD Work Phone: [facility] 01-11-2025 09:58-0400 Diastolic blood pressure 65 mm[Hg] Zenon Huston MD Work Phone: [facility] 01-11-2025 09:58-0400 Systolic blood pressure 163 mm[Hg] Zenon Huston MD Work Phone: [facility] 01-06-2025 12:25-0400 Body temperature 97.7 [degF] Zenon Huston MD Work Phone: [facility] 01-06-2025 12:25-0400 Diastolic blood pressure 56 mm[Hg] Zenon Huston MD Work Phone: [facility] 01-06-2025 12:25-0400 Heart rate 75 /min Zenon Huston MD Work Phone: [facility] 01-06-2025 12:25-0400 Respiratory rate 16 /min Zenon Huston MD Work Phone: [facility] 01-06-2025 12:25-0400 SaO2% (BldA) [Mass fraction] 100 % Zenon Huston MD Work Phone: [facility] 01-06-2025 12:25-0400 Systolic blood pressure 151 mm[Hg] Zenon Huston MD Work Phone: [facility] 01-06-2025 08:01-0400 Body height 154.9 cm Zenon Huston MD Work Phone: [facility] 01-06-2025 08:01-0400 Body mass index (BMI) [Ratio] 20.03 kg/m2 Zenon Huston MD Work Phone: [facility] 01-06-2025 08:01-0400 Body weight 48.08 kg Zenon Huston MD Work Phone: [facility] 11-28-2024 13:20-0400 Body height 154.9 cm Zenon Huston MD Work Phone: [facility] 11-28-2024 13:20-0400 Body mass index (BMI) [Ratio] 19.27 kg/m2 Zenon Huston MD Work Phone: [facility] 11-28-2024 13:20-0400 Body weight 46.27 kg Zenon Huston MD Work Phone: [facility] 11-28-2024 13:20-0400 Respiratory rate 13 /min Zenon Huston MD Work Phone: [facility] 10-21-2024 11:27-0500 Diastolic blood pressure 58 mm[Hg] Jeffy Fields MD Work Phone: [facility] 10-21-2024 11:27-0500 Systolic blood pressure 138 mm[Hg] Jeffy Fields MD Work Phone: [facility] 10-21-2024 11:02-0500 Body height 154.9 cm Jeffy Fields MD Work Phone: [facility] 10-21-2024 11:02-0500 Body mass index (BMI) [Ratio] 20.78 kg/m2 Jeffy Fields MD Work Phone: [facility] 10-21-2024 11:02-0500 Body weight 49.9 kg Jeffy Fields MD Work Phone: [facility] 10-21-2024 11:02-0500 Heart rate 58 /min Jeffy Fields MD Work Phone: [facility] 10-21-2024 11:02-0500 SaO2% (BldA) [Mass fraction] 99 % Jeffy Fields MD Work Phone: [facility] 09-08-2024 14:19-0500 Body mass index (BMI) [Ratio] 20.78 kg/m2 Mimi Dillan ADMINISTRATIVE ACCOUNTANT.CIVIL ENGINEERING PROJECT DESIGNER Work Phone: [facility] 09-08-2024 14:19-0500 Body weight 49.9 kg Mimi Dillan ADMINISTRATIVE ACCOUNTANT.CIVIL ENGINEERING PROJECT DESIGNER Work Phone: [facility] 09-08-2024 14:19-0500 Diastolic blood pressure 72 mm[Hg] Mimi Dillan ADMINISTRATIVE ACCOUNTANT.CIVIL ENGINEERING PROJECT DESIGNER Work Phone: [facility] 09-08-2024 14:19-0500 Heart rate 72 /min Mimi Dillan ADMINISTRATIVE ACCOUNTANT.CIVIL ENGINEERING PROJECT DESIGNER Work Phone: [facility] 09-08-2024 14:19-0500 SaO2% (BldA) [Mass fraction] 96 % Mimi Dillan ADMINISTRATIVE ACCOUNTANT.CIVIL ENGINEERING PROJECT DESIGNER Work Phone: [facility] 09-08-2024 14:19-0500 Systolic blood pressure 139 mm[Hg] Mimi Dillan ADMINISTRATIVE ACCOUNTANT.CIVIL ENGINEERING PROJECT DESIGNER Work Phone: [facility] 06-28-2024 09:51-0500 Body mass index (BMI) [Ratio] 20.83 kg/m2 Francois Praisler-Wood ADMINISTRATIVE ACCOUNTANT.CIVIL ENGINEERING PROJECT DESIGNER Work Phone: [facility] 06-28-2024 09:51-0500 Body temperature 97.11 [degF] Francois Praisler-Wood ADMINISTRATIVE ACCOUNTANT.CIVIL ENGINEERING PROJECT DESIGNER Work Phone: [facility] 06-28-2024 09:51-0500 Body weight 50 kg Francois Praisler-Wood ADMINISTRATIVE ACCOUNTANT.CIVIL ENGINEERING PROJECT DESIGNER Work Phone: [facility] 06-28-2024 09:51-0500 Diastolic blood pressure 72 mm[Hg] Francois Praisler-Wood ADMINISTRATIVE ACCOUNTANT.CIVIL ENGINEERING PROJECT DESIGNER Work Phone: [facility] 06-28-2024 09:51-0500 Heart rate 65 /min Francois Praisler-Wood ADMINISTRATIVE ACCOUNTANT.CIVIL ENGINEERING PROJECT DESIGNER Work Phone: [facility] 06-28-2024 09:51-0500 Respiratory rate 18 /min Francois Praisler-Wood ADMINISTRATIVE ACCOUNTANT.CIVIL ENGINEERING PROJECT DESIGNER Work Phone: [facility] 06-28-2024 09:51-0500 SaO2% (BldA) [Mass fraction] 100 % Francois Hull-Jeffrey ADMINISTRATIVE ACCOUNTANT.CIVIL ENGINEERING PROJECT DESIGNER Work Phone: [facility] 06-28-2024 09:51-0500 Systolic blood pressure 142 mm[Hg] Francois Hull-Jeffrey ADMINISTRATIVE ACCOUNTANT.CIVIL ENGINEERING PROJECT DESIGNER Work Phone: [facility] 06-20-2024 10:22-0400 Body mass index (BMI) [Ratio] 20.41 kg/m2 Jeffy Clark Jr., MD Work Phone: [facility] 06-20-2024 10:22-0400 Body weight 48.99 kg Jeffy Clark Jr., MD Work Phone: [facility] 06-20-2024 10:22-0400 Diastolic blood pressure 70 mm[Hg] Jeffy Clark Jr., MD Work Phone: [facility] 06-20-2024 10:22-0400 Heart rate 80 /min Jeffy Clark Jr., MD Work Phone: [facility] 06-20-2024 10:22-0400 SaO2% (BldA) [Mass fraction] 100 % Jeffy Clark Jr., MD Work Phone: [facility] 06-20-2024 10:22-0400 Systolic blood pressure 151 mm[Hg] Jeffy Clark Jr., MD Work Phone: [facility] 04-19-2024 10:05-0400 Diastolic blood pressure 40 mm[Hg] Jennifer Broussard ADMINISTRATIVE ACCOUNTANT.CIVIL ENGINEERING PROJECT DESIGNER Work Phone: [facility] 04-19-2024 10:05-0400 Systolic blood pressure 118 mm[Hg] Jennifer Suppan ADMINISTRATIVE ACCOUNTANT.CIVIL ENGINEERING PROJECT DESIGNER Work Phone: [facility] 04-19-2024 09:54-0400 Body mass index (BMI) [Ratio] 20.41 kg/m2 Jennifererrol Anguianoan ADMINISTRATIVE ACCOUNTANT.CIVIL ENGINEERING PROJECT DESIGNER Work Phone: [facility] 04-19-2024 09:54-0400 Body weight 48.99 kg Jennifer Broussard ADMINISTRATIVE ACCOUNTANT.CIVIL ENGINEERING PROJECT DESIGNER Work Phone: [facility] 04-19-2024 09:54-0400 Heart rate 65 /min Jennifer Broussard ADMINISTRATIVE ACCOUNTANT.CIVIL ENGINEERING PROJECT DESIGNER Work Phone: [facility] 04-19-2024 09:54-0400 SaO2% (BldA) [Mass fraction] 99 % Jennifer Broussard ADMINISTRATIVE ACCOUNTANT.CIVIL ENGINEERING PROJECT DESIGNER Work Phone: [facility] 04-11-2024 10:50-0400 Body height 154.9 cm Zenon Huston MD Work Phone: [facility] 04-11-2024 10:50-0400 Body mass index (BMI) [Ratio] 19.27 kg/m2 Zenon Huston MD Work Phone: [facility] 04-11-2024 10:50-0400 Body weight 46.27 kg Zenon Huston MD Work Phone: [facility] 04-11-2024 10:50-0400 Diastolic blood pressure 70 mm[Hg] Zenon Huston MD Work Phone: [facility] 04-11-2024 10:50-0400 Systolic blood pressure 130 mm[Hg] Zenon Huston MD Work Phone: [facility] 03-23-2024 10:07-0400 Body height 154.9 cm Jfefy Fields MD Work Phone: [facility] 03-23-2024 10:07-0400 Body mass index (BMI) [Ratio] 20.03 kg/m2 Jeffy Fields MD Work Phone: [facility] 03-23-2024 10:07-0400 Body weight 48.08 kg Jeffy Fields MD Work Phone: [facility] 03-23-2024 10:07-0400 Diastolic blood pressure 66 mm[Hg] Jeffy Fields MD Work Phone: [facility] 03-23-2024 10:07-0400 Heart rate 65 /min Jeffy Fields MD Work Phone: [facility] 03-23-2024 10:07-0400 Systolic blood pressure 153 mm[Hg] Jeffy Fields MD Work Phone: [facility] 03-14-2024 10:55-0400 Body height 154.9 cm Zenon Huston MD Work Phone: [facility] 03-14-2024 10:55-0400 Body mass index (BMI) [Ratio] 19.27 kg/m2 Zenon Huston MD Work Phone: [facility] 03-14-2024 10:55-0400 Body weight 46.27 kg Zenon Huston MD Work Phone: [facility] 02-22-2024 11:13-0400 Body height 154.9 cm Zenon Huston MD Work Phone: [facility] 02-22-2024 11:13-0400 Body mass index (BMI) [Ratio] 19.27 kg/m2 Zenon Huston MD Work Phone: [facility] 02-22-2024 11:13-0400 Body weight 46.27 kg Zenon Huston MD Work Phone: [facility] 02-22-2024 11:13-0400 Diastolic blood pressure 60 mm[Hg] Zenon Huston MD Work Phone: [facility] 02-22-2024 11:13-0400 Systolic blood pressure 132 mm[Hg] Zenon Huston MD Work Phone: [facility] 02-17-2024 10:24-0400 Body height 154.9 cm Katrin Caraballo PA-C Work Phone: [facility] 02-17-2024 10:24-0400 Body mass index (BMI) [Ratio] 19.27 kg/m2 Katrin Caraballo PA-C Work Phone: [facility] 02-17-2024 10:24-0400 Body weight 46.27 kg Katrin Caraballo PA-C Work Phone: [facility] 02-17-2024 10:24-0400 Diastolic blood pressure 68 mm[Hg] Katrin Caraballo PA-C Work Phone: [facility] 02-17-2024 10:24-0400 Systolic blood pressure 142 mm[Hg] Katrin Caraballo PA-C Work Phone: [facility] 02-12-2024 16:41-0400 Diastolic blood pressure 59 mm[Hg] Zenon Huston MD Work Phone: [facility] 02-12-2024 16:41-0400 Heart rate 78 /min Zenon Huston MD Work Phone: [facility] 02-12-2024 16:41-0400 Respiratory rate 12 /min Zenon Huston MD Work Phone: [facility] 02-12-2024 16:41-0400 SaO2% (BldA) [Mass fraction] 99 % Zenon Huston MD Work Phone: [facility] 02-12-2024 16:41-0400 Systolic blood pressure 126 mm[Hg] Zenon Huston MD Work Phone: [facility] 02-12-2024 15:40-0400 Body temperature 97.11 [degF] Zenon Huston MD Work Phone: [facility] 02-08-2024 14:27-0400 Body height 154.9 cm Zenon Huston MD Work Phone: [facility] 02-08-2024 14:27-0400 Body mass index (BMI) [Ratio] 20.41 kg/m2 Zenon Huston MD Work Phone: [facility] 02-08-2024 14:27-0400 Body weight 48.99 kg Zenon Huston MD Work Phone: [facility] 01-17-2024 08:56-0400 Body mass index (BMI) [Ratio] 20.37 kg/m2 Joe Moomaw ADMINISTRATIVE ACCOUNTANT.CIVIL ENGINEERING PROJECT DESIGNER Work Phone: [facility] 01-17-2024 08:56-0400 Body temperature 97.5 [degF] Joe Moomaw ADMINISTRATIVE ACCOUNTANT.CIVIL ENGINEERING PROJECT DESIGNER Work Phone: [facility] 01-17-2024 08:56-0400 Body weight 48.9 kg Joe Moomaw ADMINISTRATIVE ACCOUNTANT.CIVIL ENGINEERING PROJECT DESIGNER Work Phone: [facility] 01-17-2024 08:56-0400 Diastolic blood pressure 51 mm[Hg] Joe Moomaw ADMINISTRATIVE ACCOUNTANT.CIVIL ENGINEERING PROJECT DESIGNER Work Phone: [facility] 01-17-2024 08:56-0400 Heart rate 69 /min Joe Moomaw ADMINISTRATIVE ACCOUNTANT.CIVIL ENGINEERING PROJECT DESIGNER Work Phone: [facility] 01-17-2024 08:56-0400 Respiratory rate 18 /min Joe Moomaw ADMINISTRATIVE ACCOUNTANT.CIVIL ENGINEERING PROJECT DESIGNER Work Phone: [facility] 01-17-2024 08:56-0400 SaO2% (BldA) [Mass fraction] 98 % Joe Moomaw ADMINISTRATIVE ACCOUNTANT.CIVIL ENGINEERING PROJECT DESIGNER Work Phone: [facility] 01-17-2024 08:56-0400 Systolic blood pressure 169 mm[Hg] Joe Moomaw ADMINISTRATIVE ACCOUNTANT.CIVIL ENGINEERING PROJECT DESIGNER Work Phone: [facility] 12-14-2023 09:51-0400 Body mass index (BMI) [Ratio] 20.22 kg/m2 Mimi Dillan ADMINISTRATIVE ACCOUNTANT.CIVIL ENGINEERING PROJECT DESIGNER Work Phone: [facility] 12-14-2023 09:51-0400 Body weight 48.53 kg Mimi Dillan ADMINISTRATIVE ACCOUNTANT.CIVIL ENGINEERING PROJECT DESIGNER Work Phone: [facility] 12-14-2023 09:51-0400 Diastolic blood pressure 52 mm[Hg] Mimi Dillan ADMINISTRATIVE ACCOUNTANT.CIVIL ENGINEERING PROJECT DESIGNER Work Phone: [facility] 12-14-2023 09:51-0400 Heart rate 50 /min Mimi Dillan ADMINISTRATIVE ACCOUNTANT.CIVIL ENGINEERING PROJECT DESIGNER Work Phone: [facility] 12-14-2023 09:51-0400 Respiratory rate 16 /min Mimi Dillan ADMINISTRATIVE ACCOUNTANT.CIVIL ENGINEERING PROJECT DESIGNER Work Phone: [facility] 12-14-2023 09:51-0400 SaO2% (BldA) [Mass fraction] 95 % Mimi Dillan ADMINISTRATIVE ACCOUNTANT.CIVIL ENGINEERING PROJECT DESIGNER Work Phone: [facility] 12-14-2023 09:51-0400 Systolic blood pressure 118 mm[Hg] Mimi Dillan ADMINISTRATIVE ACCOUNTANT.CIVIL ENGINEERING PROJECT DESIGNER Work Phone: [facility] 11-23-2023 15:52-0400 Body temperature 97.9 [degF] Ralf Giles MD Work Phone: [facility] 10-15-2023 11:24-0500 Diastolic blood pressure 61 mm[Hg] Ralf Giles MD Work Phone: [facility] 10-15-2023 11:24-0500 Heart rate 62 /min Ralf Giles MD Work Phone: [facility] 10-15-2023 11:24-0500 Respiratory rate 14 /min Ralf Giles MD Work Phone: [facility] 10-15-2023 11:24-0500 SaO2% (BldA) [Mass fraction] 98 % Ralf Giles MD Work Phone: [facility] 10-15-2023 11:24-0500 Systolic blood pressure 144 mm[Hg] Ralf Giles MD Work Phone: [facility] 10-15-2023 09:50-0500 Body temperature 97.59 [degF] Ralf Giles MD Work Phone: [facility] 10-15-2023 09:50-0500 Body weight 49 kg Ralf Giles MD Work Phone: [facility] 10-09-2023 14:50-0500 Body height 154.9 cm Ralf Giles MD Work Phone: [facility] 10-09-2023 14:50-0500 Body temperature 97.39 [degF] Ralf Giles MD Work Phone: [facility] 10-09-2023 14:50-0500 Body weight 48.99 kg Ralf Giles MD Work Phone: [facility] 10-09-2023 14:50-0500 Diastolic blood pressure 48 mm[Hg] Ralf Giles MD Work Phone: [facility] 10-09-2023 14:50-0500 Heart rate 79 /min Ralf Giles MD Work Phone: [facility] 10-09-2023 14:50-0500 SaO2% (BldA) [Mass fraction] 99 % Ralf Giles MD Work Phone: [facility] 10-09-2023 14:50-0500 Systolic blood pressure 108 mm[Hg] Ralf Giles MD Work Phone: [facility] 06-24-2023 08:51-0400 Body height 154.9 cm Ralf Giles MD Work Phone: [facility] 06-24-2023 08:51-0400 Body temperature 96.6 [degF] Ralf Giles MD Work Phone: [facility] 06-24-2023 08:51-0400 Body weight 48.35 kg Ralf Giles MD Work Phone: [facility] 06-24-2023 08:51-0400 Diastolic blood pressure 72 mm[Hg] Ralf Giles MD Work Phone: [facility] 06-24-2023 08:51-0400 Heart rate 88 /min Ralf Giles MD Work Phone: [facility] 06-24-2023 08:51-0400 SaO2% (BldA) [Mass fraction] 99 % Ralf Giles MD Work Phone: [facility] 06-24-2023 08:51-0400 Systolic blood pressure 130 mm[Hg] Ralf Giles MD Work Phone: [facility] 06-23-2023 16:13-0400 Diastolic blood pressure 60 mm[Hg] Jeffy Fields MD Work Phone: [facility] 06-23-2023 16:13-0400 Systolic blood pressure 142 mm[Hg] Jeffy Fields MD Work Phone: [facility] 06-23-2023 15:21-0400 Body height 154.9 cm Jeffy Fields MD Work Phone: [facility] 06-23-2023 15:21-0400 Body weight 47.99 kg Jeffy Fields MD Work Phone: [facility] 06-23-2023 15:21-0400 Heart rate 68 /min Jeffy Fields MD Work Phone: [facility] 06-23-2023 15:21-0400 SaO2% (BldA) [Mass fraction] 99 % Jeffy Fields MD Work Phone: [facility] 06-08-2023 18:45-0400 Diastolic blood pressure 48 mm[Hg] Dr. Jeffy Fields Work Phone: [facility] 06-08-2023 18:45-0400 Systolic blood pressure 157 mm[Hg] Dr. Jeffy Fields Work Phone: 3(124)127-712[address] [place] [address] 06-08-2023 17:06-0400 Respiratory rate 18 /min Dr. Jeffy Fields Work Phone: [facility] 06-08-2023 15:18-0400 Body height 157.[address] Jeffy Fields Work Phone: [facility] 06-08-2023 15:18-0400 Body mass index (BMI) [Ratio] 18.3 kg/m2 Dr. Jeffy Fields Work Phone: [facility] 06-08-2023 15:18-0400 Body temperature 97.4 [degF] Dr. Jeffy Fields Work Phone: 0(143)[phone] [place] [address] 06-08-2023 15:18-0400 Body weight 45.[address] Jeffy Fields Work Phone: 8(682)[phone] [place] [address] 06-08-2023 15:18-0400 Heart rate 81 /min Dr. Jfefy Fields Work Phone: [facility] 06-08-2023 15:18-0400 SaO2% (BldA) [Mass fraction] 100 % Dr. Jefyf Fields Work Phone: [facility] 04-21-2023 08:56-0400 Body weight 47.81 kg Radha Queener PA-C Work Phone: [facility] 04-21-2023 08:56-0400 Diastolic blood pressure 64 mm[Hg] Radha Queener PA-C Work Phone: [facility] 04-21-2023 08:56-0400 Heart rate 61 /min Radha Queener PA-C Work Phone: [facility] 04-21-2023 08:56-0400 Respiratory rate 16 /min Radha Queener PA-C Work Phone: [facility] 04-21-2023 08:56-0400 SaO2% (BldA) [Mass fraction] 100 % Radha Queener PA-C Work Phone: [facility] 04-21-2023 08:56-0400 Systolic blood pressure 142 mm[Hg] Radha Queener PA-C Work Phone: [facility] 04-07-2023 08:43-0400 Body height 154.9 cm Tete Kalka PA-C Work Phone: [facility] 04-07-2023 08:43-0400 Body weight 46.72 kg Tete Kalka PA-C Work Phone: [facility] 04-07-2023 08:43-0400 Diastolic blood pressure 60 mm[Hg] Tete Kalka PA-C Work Phone: [facility] 04-07-2023 08:43-0400 Heart rate 72 /min Tete Kalka PA-C Work Phone: [facility] 04-07-2023 08:43-0400 Systolic blood pressure 150 mm[Hg] Tete Galvin PA-C Work Phone: [facility] 03-24-2023 13:58-0400 Body height 154.9 cm Jeffy Fields MD Work Phone: [facility] 03-24-2023 13:58-0400 Body weight 47.27 kg Jeffy Fields MD Work Phone: [facility] 03-24-2023 13:58-0400 Diastolic blood pressure 56 mm[Hg] Jeffy Fields MD Work Phone: [facility] 03-24-2023 13:58-0400 Heart rate 74 /min Jeffy Fields MD Work Phone: [facility] 03-24-2023 13:58-0400 SaO2% (BldA) [Mass fraction] 98 % Jeffy Fields MD Work Phone: [facility] 03-24-2023 13:58-0400 Systolic blood pressure 156 mm[Hg] Jeffy Fields MD Work Phone: [facility] 02-28-2023 10:27-0400 Body height 157.[address] Jeffy Fields Work Phone: [facility] 02-28-2023 10:27-0400 Body mass index (BMI) [Ratio] 18.4 kg/m2 Dr. Jeffy Fields Work Phone: [facility] 02-28-2023 10:27-0400 Body temperature 97.5 [degF] Dr. Jeffy Fields Work Phone: [facility] 02-28-2023 10:27-0400 Body weight 45.[address] Jeffy Fields Work Phone: [facility] 02-28-2023 10:27-0400 Diastolic blood pressure 71 mm[Hg] Dr. Jeffy Fields Work Phone: [facility] [facility] 02-28-2023 10:27-0400 Heart rate 81 /min Dr. Jeffy Fields Work Phone: [facility] 02-28-2023 10:27-0400 Respiratory rate 16 /min Dr. Jeffy Fields Work Phone: [facility] 02-28-2023 10:27-0400 SaO2% (BldA) [Mass fraction] 100 % Dr. Jeffy Fields Work Phone: [facility] 02-28-2023 10:27-0400 Systolic blood pressure 198 mm[Hg] Dr. Jeffy Fields Work Phone: [facility] 02-28-2023 09:18-0400 Body height 154.9 cm Jeffy Fields MD Work Phone: [facility] 02-28-2023 09:18-0400 Body weight 48.17 kg Jeffy Fields MD Work Phone: [facility] 02-28-2023 09:18-0400 Diastolic blood pressure 52 mm[Hg] Jeffy Fields MD Work Phone: [facility] 02-28-2023 09:18-0400 Heart rate 67 /min Jeffy Fields MD Work Phone: [facility] 02-28-2023 09:18-0400 SaO2% (BldA) [Mass fraction] 98 % Jeffy Fields MD Work Phone: [facility] 02-28-2023 09:18-0400 Systolic blood pressure 164 mm[Hg] Jeffy Fields MD Work Phone: [facility] 02-23-2023 14:35-0400 Body mass index (BMI) [Ratio] 19.2 kg/m2 Dr. Jeffy Fields Work Phone: [facility] 02-23-2023 14:35-0400 Body weight 47.[address] Jeffy Fields Work Phone: [facility] 02-23-2023 14:35-0400 Diastolic blood pressure 66 mm[Hg] Dr. Jeffy Fields Work Phone: [facility] 02-23-2023 14:35-0400 Heart rate 70 /min Dr. Jeffy Fields Work Phone: [facility] 02-23-2023 14:35-0400 Respiratory rate 18 /min Dr. Jeffy Fields Work Phone: [facility] 02-23-2023 14:35-0400 Systolic blood pressure 172 mm[Hg] Dr. Jeffy Fields Work Phone: [facility] 02-20-2023 10:16-0400 Body temperature 98.29 [degF] Jeffy Clark Jr., MD Work Phone: [facility] 02-20-2023 10:16-0400 Body weight 47.45 kg Jeffy Clark Jr., MD Work Phone: [facility] 02-20-2023 10:16-0400 Diastolic blood pressure 72 mm[Hg] Jeffy Clark Jr., MD Work Phone: [facility] 02-20-2023 10:16-0400 Heart rate 64 /min Jeffy Clark Jr., MD Work Phone: [facility] 02-20-2023 10:16-0400 Respiratory rate 16 /min Jeffy Clark Jr., MD Work Phone: [facility] 02-20-2023 10:16-0400 SaO2% (BldA) [Mass fraction] 99 % Jeffy Clark Jr., MD Work Phone: [facility] 02-20-2023 10:16-0400 Systolic blood pressure 123 mm[Hg] Jeffy Clark Jr., MD Work Phone: [facility] 01-23-2023 11:25-0400 Diastolic blood pressure 50 mm[Hg] Jeffy Fields MD Work Phone: [facility] 01-23-2023 11:25-0400 Systolic blood pressure 140 mm[Hg] Jeffy Fields MD Work Phone: [facility] 01-23-2023 10:45-0400 Body height 154.9 cm Jeffy Fields MD Work Phone: [facility] 01-23-2023 10:45-0400 Body weight 47.45 kg Jeffy Fields MD Work Phone: [facility] 01-23-2023 10:45-0400 Heart rate 67 /min Jeffy Fields MD Work Phone: [facility] 01-23-2023 10:45-0400 SaO2% (BldA) [Mass fraction] 97 % Jeffy Fields MD Work Phone: [facility] 10-31-2022 10:22-0500 Body temperature 96.8 [degF] Jeffy Clark Jr., MD Work Phone: [facility] 10-31-2022 10:22-0500 Body weight 46.99 kg Jeffy Clark Jr., MD Work Phone: [facility] 10-31-2022 10:22-0500 Diastolic blood pressure 64 mm[Hg] Jeffy Clark Jr., MD Work Phone: [facility] 10-31-2022 10:22-0500 Heart rate 73 /min Jeffy Clark Jr., MD Work Phone: [facility] 10-31-2022 10:22-0500 Respiratory rate 18 /min Jeffy Clark Jr., MD Work Phone: [facility] 10-31-2022 10:22-0500 Systolic blood pressure 121 mm[Hg] Jeffy Clark Jr., MD Work Phone: [facility] 09-23-2022 15:57-0500 Body temperature 97.2 [degF] Radha Devi PA-C Work Phone: [facility] 09-23-2022 15:57-0500 Body weight 46.72 kg Radha Devi PA-C Work Phone: [facility] 09-23-2022 15:57-0500 Diastolic blood pressure 59 mm[Hg] Radha Cifuenteser PA-C Work Phone: [facility] 09-23-2022 15:57-0500 Heart rate 73 /min Radha Devi PA-C Work Phone: [facility] 09-23-2022 15:57-0500 Respiratory rate 16 /min Radha Devi PA-C Work Phone: [facility] 09-23-2022 15:57-0500 Systolic blood pressure 138 mm[Hg] Radha Devi PA-C Work Phone: [facility] 08-13-2022 11:14-0500 Diastolic blood pressure 66 mm[Hg] Gloria Haagen ADMINISTRATIVE ACCOUNTANT.CIVIL ENGINEERING PROJECT DESIGNER Work Phone: [facility] 08-13-2022 11:14-0500 Heart rate 74 /min Gloria Haagen ADMINISTRATIVE ACCOUNTANT.CIVIL ENGINEERING PROJECT DESIGNER Work Phone: [facility] 08-13-2022 11:14-0500 Respiratory rate 18 /min Gloria Haagen ADMINISTRATIVE ACCOUNTANT.CIVIL ENGINEERING PROJECT DESIGNER Work Phone: [facility] 08-13-2022 11:14-0500 SaO2% (BldA) [Mass fraction] 98 % Gloria Haagen ADMINISTRATIVE ACCOUNTANT.CIVIL ENGINEERING PROJECT DESIGNER Work Phone: [facility] 08-13-2022 11:14-0500 Systolic blood pressure 118 mm[Hg] Gloria Haagen ADMINISTRATIVE ACCOUNTANT.CIVIL ENGINEERING PROJECT DESIGNER Work Phone: [facility] 07-23-2022 14:22-0500 Body height 154.9 cm Jeffy Fields MD Work Phone: [facility] 07-23-2022 14:22-0500 Body weight 46.27 kg Jeffy Fields MD Work Phone: [facility] 07-23-2022 14:22-0500 Diastolic blood pressure 54 mm[Hg] Jeffy Fields MD Work Phone: [facility] 07-23-2022 14:22-0500 Heart rate 63 /min Jeffy Fields MD Work Phone: [facility] 07-23-2022 14:22-0500 SaO2% (BldA) [Mass fraction] 99 % Jeffy Fields MD Work Phone: [facility] 07-23-2022 14:22-0500 Systolic blood pressure 142 mm[Hg] Jeffy Fields MD Work Phone: [facility] 06-30-2022 13:07-0500 Body temperature 97.39 [degF] Jeffy Clark Jr., MD Work Phone: [facility] 06-30-2022 13:07-0500 Body weight 45.81 kg Jeffy Clark Jr., MD Work Phone: [facility] 06-30-2022 13:07-0500 Diastolic blood pressure 62 mm[Hg] Jeffy Clark Jr., MD Work Phone: [facility] 06-30-2022 13:07-0500 Heart rate 72 /min Jeffy Clark Jr., MD Work Phone: [facility] 06-30-2022 13:07-0500 Respiratory rate 18 /min Jeffy Clark Jr., MD Work Phone: [facility] 06-30-2022 13:07-0500 SaO2% (BldA) [Mass fraction] 98 % Jeffy Clark Jr., MD Work Phone: [facility] 06-30-2022 13:07-0500 Systolic blood pressure 131 mm[Hg] Jeffy Clark Jr., MD Work Phone: [facility] 05-23-2022 09:00-0400 Diastolic blood pressure 50 mm[Hg] Rufus Golias PT Work Phone: [facility] 05-23-2022 09:00-0400 Heart rate 69 /min Rufus Golias PT Work Phone: [facility] 05-23-2022 09:00-0400 SaO2% (BldA) [Mass fraction] 97 % Rufus Golias PT Work Phone: [facility] 05-23-2022 09:00-0400 Systolic blood pressure 110 mm[Hg] Rufus Golias PT Work Phone: [facility] 05-12-2022 10:02-0400 Body height 154.9 cm Jeffy Fields MD Work Phone: [facility] 05-12-2022 10:02-0400 Body weight 46.45 kg Jeffy Fields MD Work Phone: [facility] 05-12-2022 10:02-0400 Diastolic blood pressure 50 mm[Hg] Jeffy Fields MD Work Phone: [facility] 05-12-2022 10:02-0400 Heart rate 92 /min Jeffy Fields MD Work Phone: [facility] 05-12-2022 10:02-0400 SaO2% (BldA) [Mass fraction] 99 % Jeffy Fields MD Work Phone: [facility] 05-12-2022 10:02-0400 Systolic blood pressure 140 mm[Hg] Jeffy Fields MD Work Phone: [facility] 04-10-2022 15:44-0400 Diastolic blood pressure 70 mm[Hg] Mónica Radha ADMINISTRATIVE ACCOUNTANT.CIVIL ENGINEERING PROJECT DESIGNER Work Phone: [facility] 04-10-2022 15:44-0400 Heart rate 92 /min Mónica Radha ADMINISTRATIVE ACCOUNTANT.CIVIL ENGINEERING PROJECT DESIGNER Work Phone: [facility] 04-10-2022 15:44-0400 Respiratory rate 18 /min Mónica Radha ADMINISTRATIVE ACCOUNTANT.CIVIL ENGINEERING PROJECT DESIGNER Work Phone: [facility] 04-10-2022 15:44-0400 SaO2% (BldA) [Mass fraction] 100 % Mónica Radha ADMINISTRATIVE ACCOUNTANT.CIVIL ENGINEERING PROJECT DESIGNER Work Phone: [facility] 04-10-2022 15:44-0400 Systolic blood pressure 132 mm[Hg] Mónica Radha ADMINISTRATIVE ACCOUNTANT.CIVIL ENGINEERING PROJECT DESIGNER Work Phone: [facility] 04-02-2022 10:21-0400 Diastolic blood pressure 76 mm[Hg] Gloria Haagen ADMINISTRATIVE ACCOUNTANT.CIVIL ENGINEERING PROJECT DESIGNER Work Phone: [facility] 04-02-2022 10:21-0400 Heart rate 80 /min Gloria Haagen ADMINISTRATIVE ACCOUNTANT.CIVIL ENGINEERING PROJECT DESIGNER Work Phone: [facility] 04-02-2022 10:21-0400 Respiratory rate 18 /min Gloria Haagen ADMINISTRATIVE ACCOUNTANT.CIVIL ENGINEERING PROJECT DESIGNER Work Phone: [facility] 04-02-2022 10:21-0400 SaO2% (BldA) [Mass fraction] 98 % Gloria Haagen ADMINISTRATIVE ACCOUNTANT.CIVIL ENGINEERING PROJECT DESIGNER Work Phone: [facility] 04-02-2022 10:21-0400 Systolic blood pressure 138 mm[Hg] Gloria Haagen ADMINISTRATIVE ACCOUNTANT.CIVIL ENGINEERING PROJECT DESIGNER Work Phone: [facility] 03-27-2022 14:57-0400 Body temperature 98.8 [degF] Ramu Pendlebury ADMINISTRATIVE ACCOUNTANT.CIVIL ENGINEERING PROJECT DESIGNER Work Phone: [facility] 03-27-2022 14:57-0400 Diastolic blood pressure 68 mm[Hg] Ramu Pendlebury ADMINISTRATIVE ACCOUNTANT.CIVIL ENGINEERING PROJECT DESIGNER Work Phone: [facility] 03-27-2022 14:57-0400 Heart rate 95 /min Ramu Pendlebury ADMINISTRATIVE ACCOUNTANT.CIVIL ENGINEERING PROJECT DESIGNER Work Phone: [facility] 03-27-2022 14:57-0400 Respiratory rate 16 /min Ramu Pendlebury ADMINISTRATIVE ACCOUNTANT.CIVIL ENGINEERING PROJECT DESIGNER Work Phone: [facility] 03-27-2022 14:57-0400 SaO2% (BldA) [Mass fraction] 98 % Ramu Pendlebury ADMINISTRATIVE ACCOUNTANT.CIVIL ENGINEERING PROJECT DESIGNER Work Phone: [facility] 03-27-2022 14:57-0400 Systolic blood pressure 160 mm[Hg] Ramu Pendlebury ADMINISTRATIVE ACCOUNTANT.CIVIL ENGINEERING PROJECT DESIGNER Work Phone: [facility] 02-26-2022 10:17-0400 Body temperature 98.24 [degF] DR BRANDON YATES MD [facility] 02-26-2022 10:17-0400 Diastolic Blood Pressure NBP [address] BRANDON YATES MD [facility] 02-26-2022 10:17-0400 Heart rate 75 /min DR BRANDON YATES MD [facility] 02-26-2022 10:17-0400 Reason For Taking VItal Signs DR BRANDON YATES MD [facility] 02-26-2022 10:17-0400 Respiratory rate 16 /min DR BRANDON YATES MD [facility] 02-26-2022 10:17-0400 Systolic Blood Pressure NBP [address] BRANDON YATES MD [facility] 02-26-2022 07:07-0400 Body temperature 98.6 [degF] DR BRANDON YATES MD [facility] 02-26-2022 07:07-0400 Diastolic Blood Pressure NBP [address] BRANDON YATES MD [facility] 02-26-2022 07:07-0400 Heart rate 72 /min DR BRANDON YATES MD [facility] 02-26-2022 07:07-0400 Reason For Taking VItal Signs DR BRANDON YATES MD [facility] 02-26-2022 07:07-0400 Respiratory rate 18 /min DR BRANDON YATES MD [facility] 02-26-2022 07:07-0400 Systolic Blood Pressure NBP [address] BRANDON YATES MD [facility] 02-26-2022 06:40-0400 Heart rate 68 /min DR BRANDON YATES MD [facility] 02-26-2022 06:28-0400 Reason For Taking VItal Signs DR BRANDON YATES MD [facility] 02-26-2022 05:35-0400 Respiratory rate 18 /min DR BRANDON YATES MD [facility] 02-26-2022 04:15-0400 Heart rate 64 /min DR BRANDON YATES MD [facility] 02-25-2022 23:27-0400 Body temperature 98.06 [degF] DR BRANDON YATES MD [facility] 02-25-2022 23:27-0400 Diastolic Blood Pressure NBP [address] BRANDON YATES MD [facility] 02-25-2022 23:27-0400 Systolic Blood Pressure NBP [address] BRANDON YATES MD [facility] 02-25-2022 15:32-0400 Body temperature 98.24 [degF] DR BRANDON YATES MD [facility] 02-25-2022 15:32-0400 Heart rate 69 /min DR BRANDON YATES MD [facility] 02-25-2022 11:21-0400 Body height [address] BRANDON YATES MD [facility] 02-25-2022 11:21-0400 Body weight [address] BRANDON YATES MD [facility] 02-25-2022 11:21-0400 Body weight 18.9 kg/m2 DR BRANDON YATES MD [facility] 02-25-2022 10:10-0400 Body temperature 96.26 [degF] DR BRANDON YATES MD [facility] 02-25-2022 06:52-0400 Body height [address] BRANDON YATES MD [facility] 02-25-2022 06:52-0400 Body temperature 97.52 [degF] DR BRANDON YATES MD [facility] 02-25-2022 06:52-0400 Body weight [address] BRANDON YATES MD [facility] 02-25-2022 06:52-0400 Heart rate 79 /min DR BRANDON YATES MD [facility] 02-10-2022 11:05-0400 Body height [address] BRANDON YATES MD [facility] 02-10-2022 11:05-0400 Body weight [address] BRANDON YATES MD [facility] 02-10-2022 11:05-0400 Body weight 18.9 kg/m2 DR BRANDON YATES MD [facility] 02-10-2022 11:05-0400 diastolic 64 mm[Hg] DR BRANDON YATES MD [facility] 02-10-2022 11:05-0400 Heart rate 88 /min DR BRANDON YATES MD [facility] 02-10-2022 11:05-0400 Respiratory rate 16 /min DR BRANDON YATES MD [facility] 02-10-2022 11:05-0400 systolic 128 mm[Hg] DR BRANDON YATES MD [facility] 02-06-2022 09:05-0400 Body temperature 97.39 [degF] Tete Dahlhausen ADMINISTRATIVE ACCOUNTANT.CIVIL ENGINEERING PROJECT DESIGNER Work Phone: [facility] 02-06-2022 09:05-0400 Body weight 45.77 kg Tete Dahlhausen ADMINISTRATIVE ACCOUNTANT.CIVIL ENGINEERING PROJECT DESIGNER Work Phone: [facility] 02-06-2022 09:05-0400 Diastolic blood pressure 68 mm[Hg] Tete Dahlhausen ADMINISTRATIVE ACCOUNTANT.CIVIL ENGINEERING PROJECT DESIGNER Work Phone: [facility] 02-06-2022 09:05-0400 Heart rate 79 /min Tete Dahlhausen ADMINISTRATIVE ACCOUNTANT.CIVIL ENGINEERING PROJECT DESIGNER Work Phone: [facility] 02-06-2022 09:05-0400 Respiratory rate 18 /min Tete Dabrittnyhausen ADMINISTRATIVE ACCOUNTANT.CIVIL ENGINEERING PROJECT DESIGNER Work Phone: [facility] 02-06-2022 09:05-0400 SaO2% (BldA) [Mass fraction] 98 % Tete Dahlhausen ADMINISTRATIVE ACCOUNTANT.CIVIL ENGINEERING PROJECT DESIGNER Work Phone: [facility] 02-06-2022 09:05-0400 Systolic blood pressure 132 mm[Hg] Tete Dahlhausen ADMINISTRATIVE ACCOUNTANT.CIVIL ENGINEERING PROJECT DESIGNER Work Phone: [facility] 01-28-2022 10:37-0400 Diastolic blood pressure 68 mm[Hg] NA Zamora PA-C Work Phone: [facility] 01-28-2022 10:37-0400 Heart rate 76 /min NA Zamora PA-C Work Phone: [facility] 01-28-2022 10:37-0400 Systolic blood pressure 130 mm[Hg] NA Zamora PA-C Work Phone: [facility] 01-16-2022 14:11-0400 Body weight 48.08 kg Jeffy Fields MD Work Phone: [facility] 01-16-2022 [id number] Diastolic blood pressure 62 mm[Hg] Jeffy Fields MD Work Phone: [facility] 01-16-2022 [id number]:110400 Heart rate 76 /min Jeffy Fields MD Work Phone: [facility] 01-16-2022 [id number]:110400 SaO2% (BldA) [Mass fraction] 99 % Jeffy Fields MD Work Phone: [facility] 01-16-2022 [id number] Systolic blood pressure 152 mm[Hg] Jeffy Fields MD Work Phone: [facility] Encounters Encounter Date Encounter Type Care Provider Facility Start: 03-24-2025 ambulatory Jeffy Fields Facility:[facility] Start: 03-23-2025 End: 03-23-2025 Documentation procedure Carolina Anderson OT [facility] Start: 03-21-2025 End: 03-21-2025 Telephone encounter Jeffy Fields MD Work Phone: [facility] Comment on above: [facility] Start: 03-13-2025 End: 03-13-2025 Telephone encounter Jeffy Clark MD Work Phone: Neurology Comment on above: Orders (Nidra ) Start: 03-13-2025 End: 03-13-2025 Patient encounter procedure Jeffy Clark MD Work Phone: Neurology Comment on above: PLMD (periodic limb movement disorder) (Primary Dx); RLS (restless legs syndrome); Dream enactment behavior; Insomnia, unspecified type; High risk medication use Start: 03-13-2025 End: 03-13-2025 ambulatory JEFFY CLARK JR Facility:[facility] Start: 02-28-2025 End: 02-28-[address] Jeffy Fields MD Work Phone: -Laboratory Start: 02-28-2025 End: 02-28-2025 Patient encounter procedure Eneida Arroyo PA -Laboratory Work Phone: Start: 02-28-2025 End: 02-28-2025 Patient encounter procedure Eneida NEWELL -[facility] Work Phone: Start: 02-28-2025 End: 02-28-[address] Jeffy Fields MD Work Phone: -[facility] Start: 02-28-2025 End: 02-28-2025 ambulatory Jeffy Fields Facility:[facility] Start: 02-20-2025 End: 02-20-2025 Postop follow up visit related to original px Zenon Huston MD Work Phone: [facility] Comment on above: Dislocation of proxi mal interphalangeal joint of right middle finger, subsequent encounter (Primary Dx); Dislocation of finger PIP joint, initial encounter Start: 02-20-2025 End: 02-20-2025 ambulatory ZENON HUSTON [facility] Start: 02-14-2025 End: 02-16-2025 Refill Jeffy Fields MD Work Phone: [facility] Comment on above: Refill Request (Out of Medication) Start: 01-18-2025 End: 01-18-2025 Follow-up encounter Carolina Anderson OT [facility] Comment on above: Dislocation of proxi mal interphalangeal joint of right middle finger, subsequent encounter (Primary Dx); Dislocation of finger PIP joint, initial encounter Start: 01-18-2025 End: 01-18-2025 Postop follow up visit related to original px Zenon Huston MD Work Phone: [facility] Comment on above: Dislocation of proxi mal interphalangeal joint of right middle finger, subsequent encounter (Primary Dx); History of arthroplasty of finger Start: 01-18-2025 End: 01-18-20[facility] Start: 01-18-2025 End: 01-18-2025 ambulatory ZENON HUSTON [facility] Start: 01-11-2025 End: 01-11-2025 ambulatory Jose Martin Jean PA-C Work Phone: [facility] Comment on above: Dislocation of proxi mal interphalangeal joint of right middle finger, subsequent encounter Start: 01-11-2025 End: 01-11-2025 Postop follow up visit related to original px Zenon Huston MD Work Phone: [facility] Comment on above: Dislocation of proxi mal interphalangeal joint of right middle finger, subsequent encounter (Primary Dx) Start: 01-11-2025 End: 01-11-2025 ambulatory ZENON HUSTON [facility] Start: 01-06-2025 End: 01-06-2025 ambulatory ZENON ROBEL [facility] Start: 01-06-2025 End: 01-06-2025 Subsequent hospital visit by physician Zenon Huston MD Work Phone: [facility] Start: 12-23-2024 End: 12-23-2024 ambulatory JEFFY EVANSO [facility] Start: 11-30-2024 End: 11-30-2024 ambulatory Jose Martin Jean PA-C Work Phone: [facility] Start: 11-28-2024 End: 11-28-2024 Office outpatient visit 15 minutes Zenon Huston MD Work Phone: [facility] [place] Comment on above: Dislocation of proxi mal interphalangeal joint of right middle finger, subsequent encounter (Primary Dx); History of arthroplasty of finger Start: 11-28-2024 End: 11-28-2024 ambulatory KATRIN CARABALLO [facility] Start: 11-22-2024 End: 11-28-2024 ambulatory Mimi Elizondo APRN.CNP Work Phone: Neurology Comment on above: Ropinirole Start: 11-21-2024 End: 11-21-2024 Telephone encounter Zenon Huston MD Work Phone: [facility] [place] Comment on above: Other (Triage- right middle digit) Start: 11-11-2024 End: 11-11-2024 ambulatory JEFFY FIELDS Facility:[facility] Start: 10-25-2024 End: 10-25-2024 Telephone encounter Jeffy Fields MD Work Phone: [facility] [place] Comment on above: Results Start: 10-24-2024 End: 10-24-2024 ambulatory JEFFY Tomas DIAMOND Facility:[facility] Start: 10-21-2024 End: 10-21-2024 ambulatory JEFFY Tomas DIAMOND Facility:[facility] Start: 10-21-2024 End: 10-21-2024 Patient encounter procedure Jeffy Fields MD Work Phone: [facility] [place] Comment on above: Restless legs syndro me (Primary Dx); Essential hypertension, benign; Mixed hyperlipidemia; Hypothyroidism, unspecified type; Chronic kidney disease, stage 3a (HCC) Start: 10-14-2024 End: 10-18-2024 Refill Jeffy Clark MD Work Phone: Neurology Comment on above: Refill Request Start: 09-08-2024 End: 09-08-2024 Patient encounter procedure Mimi Elizondo YOLY.CIVIL ENGINEERING PROJECT DESIGNER Work Phone: Neurology Comment on above: RLS (restless legs s yndrome) (Primary Dx); PLMD (periodic limb movement disorder); Dream enactment behavior; Insomnia, unspecified type Start: 09-08-2024 End: 09-08-2024 ambulatory MIMIJENNI BARAKATNE Facility:[facility] Start: 08-15-2024 End: 08-15-2024 Refill Jeffy Clark MD Work Phone: Neurology Comment on above: Refill Request Start: 07-06-2024 End: 07-06-2024 [facility] Start: 06-28-2024 End: 06-28-2024 Subsequent hospital visit by physician [facility] Work Phone: Radiology Comment on above: Acute midline low ba ck pain without sciatica [M54.50] Start: 06-28-2024 End: 06-29-2024 ambulatory Jen Harper Facility:[facility] Start: 06-28-2024 End: 06-28-2024 Patient encounter procedure Francois HullMarlynJeffrey AMY Work Phone: [facility] Comment on above: Burning with urinati on (Primary Dx); Acute midline low back pain without sciatica; Fall, initial encounter; Acute cystitis with hematuria; Pelvic pain Start: 06-27-2024 End: 06-28-2024 ambulatory Jeffy Fields MD Work Phone: [facility] Comment on above: Pregabalin Start: 06-20-2024 End: 06-20-2024 Patient encounter procedure Jeffy Clark MD Work Phone: Neurology Comment on above: RLS (restless legs s yndrome) (Primary Dx); Dream enactment behavior; Tremor Start: 06-20-2024 End: 06-20-2024 ambulatory JEFFY CLARK JR Facility:[facility] Start: 06-10-2024 End: 06-10-2024 ambulatory JEFFY FIELDS Facility:[facility] Start: 06-10-2024 End: 06-10-2024 [facility] on above: Screening mammogram for breast cancer [Z12.31] Start: 06-07-2024 End: 06-07-2024 Telephone encounter Jeffy Fields MD Work Phone: [facility] Comment on above: Orders Start: 06-07-2024 End: 06-07-2024 ambulatory JEFFY FIELDS Facility:[facility] Start: 06-07-2024 End: 06-07-2024 Subsequent hospital visit by physician [facility] Work Phone: Radiology Comment on above: Abnormal mammogram [ R92.8] Start: 05-20-2024 End: 05-20-2024 Refill Jeffy Clark MD Work Phone: Neurology Comment on above: Refill Request Start: 04-20-2024 End: 04-20-2024 ambulatory Jeffy Fields MD Work Phone: [facility] Comment on above: Mirtazapine Dizziness Start: 04-19-2024 End: 04-19-2024 ambulatory JENNIFER BROUSSARD [facility] [facility] Start: 04-19-2024 End: 04-19-2024 Office outpatient visit 15 minutes Jennifer Broussard APRN.CNP Work Phone: [facility] Comment on above: Chronic insomnia (Pr imary Dx); Essential hypertension, benign; Hypothyroidism, unspecified type; Hiccups; GERD with esophagitis; Hyperlipidemia, mixed Start: 04-15-2024 End: 04-15-2024 ambulatory ZENON HUSTON Facility:[facility] Start: 04-11-2024 End: 04-11-2024 Postop follow up visit related to original px Zenon Huston MD Work Phone: [facility] Comment on above: Dislocation of proxi mal interphalangeal joint of right middle finger, subsequent encounter; History of arthroplasty of finger Start: 04-11-2024 End: 04-11-2024 [facility] ZENON HUST[facility] Start: 04-06-2024 End: 04-06-2024 Orders Only Jose Martin Jean PA-C Work Phone: [facility] Comment on above: Pain of right middle finger (Primary Dx) Start: 03-29-2024 End: 03-29-2024 Documentation procedure Mark Murphy [facility] Start: 03-29-2024 Telephone encounter Mimi jones APRN.CIVIL ENGINEERING PROJECT DESIGNER Work Phone: Neurology Comment on above: 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 Start: 03-25-2024 ambulatory Pacheco Farrar Facility:[facility] Start: 03-25-2024 End: 03-25-2024 ambulatory Eneida Arroyo Facility:[facility] Start: 03-23-2024 Refill Mimi Elizondo APRN.CNP Work Phone: Neurology Comment on above: Refill Request Start: 03-23-2024 End: 03-23-2024 Subsequent hospital visit by physician X[facility] Work Phone: Radiology Comment on above: Chest pain, unspecif ied type [R07.9] Start: 03-23-2024 End: 03-23-2024 Patient encounter procedure Jeffy Fields MD Work Phone: [facility] Comment on above: Restless legs syndro me (Primary Dx); Essential tremor; Essential hypertension, benign; Mixed hyperlipidemia; Nonrheumatic mitral valve regurgitation; Gastroesophageal reflux disease with esophagitis, unspecified whether hemorrhage; Stage 3 chronic kidney disease, unspecified whether stage 3a or 3b CKD (HCC); Hypothyroidism, unspecified type; Hypogammaglobulinemia (HCC); Prediabetes; Chest pain, unspecified type; Headache, unspecified headache type; Screening for depression; Encounter for screening examination for other mental health and behavioral disorders; OSTEOPOROSIS POSTMENOPAUSAL; Myalgia Start: 03-21-2024 Refill Mimi Elizondo APRN.CNP Work Phone: Neurology Comment on above: Refill Request Start: 03-14-2024 End: 03-14-2024 Postop follow up visit related to original px Zenon Huston MD Work Phone: [facility] Comment on above: Dislocation of proxi mal interphalangeal joint of right middle finger, subsequent encounter (Primary Dx); History of arthroplasty of finger Start: 03-14-2024 End: 03-14-[address] [facility] Start: 02-23-2024 End: 02-23-2024 Documentation procedure Mark Murphy [facility] Start: 02-22-2024 Refill Jeffy garcia MD Work Phone: Neurology Comment on above: Refill Request Start: 02-22-2024 End: 02-22-2024 Postop follow up visit related to original px Zenon Huston MD Work Phone: [facility] Comment on above: Dislocation of proxi mal interphalangeal joint of right middle finger, subsequent encounter; History of arthroplasty of finger Start: 02-17-2024 End: 02-17-2024 ambulatory Zenon Huston MD Work Phone: [facility] Comment on above: Dislocation of finge r PIP joint, initial encounter Start: 02-17-2024 End: 02-17-2024 Postop follow up visit related to original px Katrin Caraballo PA-C Work Phone: [facility] Comment on above: Dislocation of proxi mal interphalangeal joint of right middle finger, subsequent encounter; History of arthroplasty of finger Start: 02-15-2024 Refill Jeffy Fields MD Work Phone: [facility] [place] Comment on above: Refill Request Start: 02-12-2024 End: 02-12-2024 Subsequent hospital visit by physician Zenon Huston MD Work Phone: [facility] Comment on above: Dislocation of inter phalangeal joint of right middle finger, subsequent encounter (Primary Dx) Start: 02-09-2024 End: 02-09-2024 ambulatory Jose Martin Jean PA-C Work Phone: [facility] Start: 02-08-2024 End: 02-08-2024 Office outpatient new 30 minutes Zenon Huston MD Work Phone: [facility] Comment on above: Dislocation of finge r PIP joint, initial encounter Start: 02-08-2024 End: 02-08-2024 Telephone encounter Zneon Huston MD Work Phone: [facility] Start: 02-04-2024 Chart abstracting Jeffy Miller MD Work Phone: [facility] [place] Start: 01-17-2024 End: 01-17-2024 Patient encounter procedure Joe Barger APRN.CIVIL ENGINEERING PROJECT DESIGNER Work Phone: [facility] Comment on above: URI, acute (Primary Dx) Start: 12-14-2023 End: 12-14-2023 Patient encounter procedure Mimi Elizondo APRN.CIVIL ENGINEERING PROJECT DESIGNER Work Phone: Neurology Comment on above: RLS (restless legs s yndrome) (Primary Dx); Dream enactment behavior; Abnormal finding of blood chemistry, unspecified; Vitamin D deficiency Start: 12-02-2023 ambulatory Jeffy Fields MD Work Phone: [facility] [place] Comment on above: ultrasound Start: 12-01-2023 End: 12-01-2023 Subsequent hospital visit by physician Diagnostic Mammo [facility] Comment on above: Inconclusive mammogr am [R92.2] Start: 11-23-2023 End: 11-23-2023 Patient encounter procedure Ralf Giles MD Work Phone: General Surgery Comment on above: Abdominal pain, LLQ (Primary Dx) Start: 10-15-2023 End: 10-15-2023 Subsequent hospital visit by physician Ralf Giles MD Work Phone: Ambulatory Surgery Comment on above: Abdominal pain, LLQ [R10.32] Start: 10-09-2023 End: 10-09-2023 Patient encounter procedure Ralf Giles MD Work Phone: General Surgery Comment on above: Abdominal pain, LLQ (Primary Dx) Start: 10-09-2023 End: 06-28-2024 Telephone encounter Ralf Giles MD Work Phone: General Surgery Comment on above: 10/15/2023 [facility] Start: 10-01-2023 Telephone encounter Jeffy Fields MD Work Phone: Pulmonology [facility] Start: 09-25-2023 Telephone encounter Jeffy Fields MD Work Phone: [facility] [place] Comment on above: Results Start: 07-24-2023 Refill Jeffy Fields MD Work Phone: [facility] [place] Comment on above: Refill Request Start: 07-20-2023 Refill Jeffy garcia MD Work Phone: Neurology Comment on above: Refill Request Start: 07-03-2023 End: 07-03-2023 Subsequent hospital visit by physician [facility] Work Phone: Nuclear Medicine Comment on above: RUQ pain [R10.11] Start: 06-24-2023 End: 06-24-2023 Patient encounter procedure Ralf Giles MD Work Phone: General Surgery Comment on above: RUQ pain (Primary Dx ); Abdominal pain, LLQ Start: 06-23-2023 End: 06-23-2023 Patient encounter procedure Jeffy Fields MD Work Phone: [facility] Comment on above: Restless legs syndro me (Primary Dx); Essential hypertension, benign; Mixed hyperlipidemia; Essential tremor; Nonrheumatic mitral valve regurgitation; Gastroesophageal reflux disease with esophagitis, unspecified whether hemorrhage; Stage 3 chronic kidney disease, unspecified whether stage 3a or 3b CKD (HCC); Hypothyroidism, unspecified type; Other autoinflammatory syndromes (HCC); Prediabetes; Hypogammaglobulinemia (HCC); Acute constipation; Abdominal pain, LLQ; Right lower quadrant abdominal pain Start: 06-08-2023 End: 06-08-2023 Emergency department patient visit Dr. Jeffy Fields Work Phone: [facility] Work Phone: Start: 05-27-2023 Telephone encounter Lorraine Zamora PA-C Work Phone: [facility] Comment on above: Results Start: 05-27-2023 End: 05-27-2023 Subsequent hospital visit by physician Diagnostic Mammo [facility] Comment on above: Inconclusive mammogr am [R92.2] Start: 05-19-2023 ambulatory Jeffy Fields MD Work Phone: [facility] Comment on above: URQ LLQ pain Start: 04-30-2023 Telephone encounter Lorraine Zamora PA-C Work Phone: [facility] Comment on above: Results Mammogram Result Marcell l Back Start: 04-23-2023 Documentation procedure Mammog kunal Coordinator [facility] Start: 04-23-2023 Letter encounter Mammography Coordinator [facility] Department Start: 04-22-2023 End: 04-22-2023 Subsequent hospital visit by physician Screen Mammo [facility] Comment on above: Encounter for screen ing mammogram for malignant neoplasm of breast [Z12.31] Start: 04-22-2023 End: 04-22-2023 Patient encounter procedure Jeffy Fields MD Work Phone: Family [facility] [place] Comment on above: Hypertension, unspec ified type (Primary Dx) Start: 04-21-2023 Telephone encounter Radha Elbert lee PA-C Work Phone: Neurology Comment on above: Medication Problem Start: 04-21-2023 End: 04-21-2023 Patient encounter procedure Radha Shandra PA-C Work Phone: Neurology Comment on above: RLS (restless legs s yndrome) (Primary Dx); Dream enactment behavior; Chronic kidney disease, unspecified CKD stage Start: 04-07-2023 End: 04-07-2023 Subsequent hospital visit by physician Alfredito [facility] [place] Work Phone: Radiology Comment on above: Ileus (HCC) [K56.7] Start: 04-07-2023 End: 04-07-2023 Patient encounter procedure Tete Galvin PA-C Work Phone: G[facility] [place] Comment on above: Ileus (HCC) (Primary Dx); Abnormal US (ultrasound) of abdomen; Fatty metamorphosis of liver; Hiatal hernia with GERD Start: 03-24-2023 End: 03-24-2023 Patient encounter procedure Jeffy Fields MD Work Phone: [facility] [place] Comment on above: Gastroesophageal ref lux disease with esophagitis, unspecified whether hemorrhage (Primary Dx); Constipation, unspecified constipation type; LLQ pain; Abnormal US (ultrasound) of abdomen; Essential hypertension, benign Start: 03-24-2023 Refill Jeffy garcia MD Work Phone: Neurology Comment on above: Refill Request Start: 03-20-2023 ambulatory Jeffy Fields MD Work Phone: [facility] [place] Start: 03-20-2023 Follow-up encounter Jeffy Fields MD Work Phone: [facility] [place] Comment on above: follow up Start: 02-28-2023 End: 02-28-2023 Emergency department patient visit Dr. Jeffy Fields Work Phone: [facility]Emergency Department Work Phone: Start: 02-28-2023 End: 02-28-2023 Patient encounter procedure Jeffy Fields MD Work Phone: Family [facility] Comment on above: RLQ abdominal pain ( Primary Dx); Nonrheumatic mitral valve regurgitation Start: 02-23-2023 End: 02-23-[address] Jeffy Fields Work Phone: [facility] Work Phone: Start: 02-20-2023 End: 02-20-2023 Patient encounter procedure Jeffy Clark MD Work Phone: Neurology Comment on above: RLS (restless legs s yndrome) (Primary Dx); Dream enactment behavior; Restless legs syndrome; Cardiac murmur Start: 02-11-2023 Non-patient / Non-visit Dr. Michaela Fields Work Phone: [facility] Work Phone: Start: 02-05-2023 End: 02-05-2023 ambulatory [facility] Work Phone: Start: 02-05-2023 End: 02-05-2023 Patient encounter procedure [facility] Start: 02-03-2023 Telephone encounter Jeffy Fields MD Work Phone: [facility] Comment on above: Results Start: 02-02-2023 Telephone encounter Jeffy Fields MD Work Phone: Family [facility] Comment on above: Results Start: 02-02-2023 End: 02-02-2023 Subsequent hospital visit by physician [facility] Work Phone: Radiology Comment on above: RUQ pain [R10.11] Start: 01-26-2023 Telephone encounter Jeffy Fields MD Work Phone: Family [facility] Comment on above: Results Start: 01-23-2023 End: 01-23-2023 Patient encounter procedure Jeffy Fields MD Work Phone: [facility] [place] Comment on above: Mixed hyperlipidemia (Primary Dx); Essential hypertension, benign; Essential tremor; Restless legs syndrome; Hypothyroidism, unspecified type; Stage 3 chronic kidney disease, unspecified whether stage 3a or 3b CKD (HCC); Prediabetes; OSTEOPOROSIS POSTMENOPAUSAL; Heart murmur; RUQ pain Start: 12-29-2022 ambulatory Jeffy Fields MD Work Phone: [facility] [place] Comment on above: Renew Levothyroxin Start: 11-11-2022 ambulatory Jeffy Fields MD Work Phone: [facility] [place] Comment on above: restart pregabalin Start: 10-31-2022 End: 10-31-2022 Patient encounter procedure Jeffy Clark MD Work Phone: Neurology Comment on above: RLS (restless legs s yndrome) (Primary Dx); Dream enactment behavior; Restless legs syndrome; Tremor Start: 09-29-2022 Telephone encounter Radha lee PA-[employer] Work Phone: Neurology Comment on above: Insurance Authorizat ion (Lyrica 100 MG) Start: 09-23-2022 End: 09-23-2022 Patient encounter procedure Radha Devi PA-C Work Phone: Neurology Comment on above: Medication monitorin g encounter (Primary Dx); Dream enactment behavior; Restless legs syndrome; Tremor; RLS (restless legs syndrome) Start: 08-31-2022 ambulatory Jeffy garcia MD Work Phone: Neurology Comment on above: Klonopin Start: 08-14-2022 Telephone encounter Jeffy Fields MD Work Phone: [facility] [place] Comment on above: Results Start: 08-13-2022 End: 08-13-2022 Office outpatient visit 15 minutes Gloria Garibay APRN.CNP Work Phone: [facility] [place] Comment on above: Raynaud's phenomenon without gangrene (Primary Dx); Other autoinflammatory syndromes (HCC) Start: 08-11-2022 ambulatory Jeffy Fields MD Work Phone: [facility] Comment on above: ring finger color change of fing er Start: 08-11-2022 Telephone encounter Jeffy Fields MD Work Phone: [facility] Comment on above: Patient Update Start: 07-23-2022 End: 07-23-2022 Patient encounter procedure Jeffy Fields MD Work Phone: [facility] Comment on above: Muscle spasm of both lower legs (Primary Dx); Essential tremor; Essential hypertension, benign; Anemia of chronic renal failure, stage 2 (mild); Stage 3 chronic kidney disease, unspecified whether stage 3a or 3b CKD (HCC); Other psoriasis; Prediabetes Start: 07-23-2022 ambulatory Jeffy garcia MD Work Phone: Neurology Comment on above: pregabalin Start: 07-20-2022 ambulatory Jeffy Fields MD Work Phone: [facility] Start: 07-20-2022 Patient encounter procedure Jeffy Fields MD Work Phone: [facility] Comment on above: Appointment needed Start: 07-09-2022 Refill Jeffy Fields MD Work Phone: [facility] Comment on above: Refill Request Start: 06-30-2022 End: 06-30-2022 Patient encounter procedure Jeffy Clark MD Work Phone: Neurology Comment on above: Tremor (Primary Dx); RLS (restless legs syndrome); Dream enactment behavior; Restless legs syndrome Start: 06-20-2022 End: 06-20-2022 ambulatory Rufus Golias PT Work Phone: [facility] Comment on above: Chronic left-sided t horacic back pain (Primary Dx) Start: 06-06-2022 End: 06-06-2022 ambulatory Rufus Golias PT Work Phone: [facility] Comment on above: Chronic left-sided t horacic back pain (Primary Dx) Start: 05-30-2022 End: 05-30-2022 ambulatory Rosa Bird HAND TAPPER Work Phone: [facility] Comment on above: Chronic left-sided t horacic back pain (Primary Dx) Start: 05-23-2022 End: 05-23-2022 ambulatory Rufus Monroy PT Work Phone: [facility] Comment on above: Chronic left-sided t horacic back pain Start: 05-12-2022 End: 05-12-2022 Subsequent hospital visit by physician [facility] [place] Work Phone: Radiology Comment on above: Chronic left-sided t horacic back pain [M54.6, G89.29] Start: 05-12-2022 End: 05-12-2022 Patient encounter procedure Jeffy Fields MD Work Phone: [facility] Comment on above: Essential hypertensi on, benign (Primary Dx); Essential tremor; Restless legs syndrome; Anemia of chronic renal failure, stage 2 (mild); Stage 3 chronic kidney disease, unspecified whether stage 3a or 3b CKD (HCC); Hypothyroidism, unspecified type; Prediabetes; Leukopenia, unspecified type; Mixed hyperlipidemia; Microscopic hematuria; Rosacea; Chronic left-sided thoracic back pain Start: 04-17-2022 ambulatory Jeffy garcia MD Work Phone: Neurology Comment on above: Pregabalin Start: 04-16-[address] sheila REYES Work Phone: [facility] Comment on above: Results Start: 04-16-2022 End: 04-16-2022 Subsequent hospital visit by physician [facility] Work Phone: Radiology Comment on above: Inversion of left ni pple [N64.59] Start: 04-10-2022 ambulatory Jeffy Fields MD Work Phone: [facility] Start: 04-10-2022 End: 04-10-2022 Patient encounter procedure Jeffy Fields MD Work Phone: [facility] Comment on above: Appointment Inversion of left ni pple (Primary Dx); Nipple anomaly Start: 04-04-2022 Telephone encounter Gloria scherer ADMINISTRATIVE ACCOUNTANT.CIVIL ENGINEERING PROJECT DESIGNER Work Phone: [facility] Comment on above: Results Start: 04-02-2022 End: 04-02-2022 Patient encounter procedure [facility] Start: 04-02-2022 End: 04-02-2022 Office outpatient visit 15 minutes Gloria Garibay ADMINISTRATIVE ACCOUNTANT.CIVIL ENGINEERING PROJECT DESIGNER Work Phone: [facility] Comment on above: Microscopic hematuri a (Primary Dx); Right leg pain Start: 03-31-2022 ambulatory Jeffy garcia MD Work Phone: Neurology Comment on above: restless legs Start: 03-28-2022 Telephone encounter Lucía smyth PA-C Work Phone: [facility] Comment on above: Results Start: 03-27-2022 End: 03-27-2022 Patient encounter procedure Ramu Ling ADMINISTRATIVE ACCOUNTANT.CIVIL ENGINEERING PROJECT DESIGNER Work Phone: [facility] Comment on above: Urinary frequency (P rimary Dx); Burning with urination Start: 03-04-2022 Refill Jeffy garcia MD Work Phone: Neurology Comment on above: Refill Request Start: 02-25-2022 End: 02-26-[address] BRANDON YATES MD [facility] Start: 02-17-2022 ambulatory Jeffy Fields MD Work Phone: [facility] Comment on above: Losartan 50 mg. Start: 02-10-2022 End: 02-10-[address] BRANDON YATES MD [facility] Start: 02-10-2022 End: 02-10-[address] BRANDON YATES MD [facility] Start: 02-06-2022 End: 02-06-2022 Patient encounter procedure Tete Sal ADMINISTRATIVE ACCOUNTANTPhilipCIVIL ENGINEERING PROJECT DESIGNER Work Phone: Neurology Comment on above: Restless legs syndro me (Primary Dx); Dream enactment behavior; Tremor Start: 01-30-2022 ambulatory Jeffy Fields MD Work Phone: [facility] Comment on above: water Start: 01-28-2022 Telephone encounter Jeffy Fields MD Work Phone: [facility] Comment on above: Blood Pressure Check Start: 01-28-2022 End: 01-28-2022 Patient encounter procedure Lorraine Zamora PA-C Work Phone: [facility] Comment on above: Essential hypertensi on, benign Start: 01-17-2022 Telephone encounter Jeffy Fields MD Work Phone: [facility] Comment on above: Results Start: 01-16-2022 End: 01-16-2022 Patient encounter procedure Jeffy Fields MD Work Phone: [facility] Comment on above: Osteoarthritis of ri ght knee, unspecified osteoarthritis type (Primary Dx); Stage 3 chronic kidney disease, unspecified whether stage 3a or 3b CKD (HCC); Anemia of chronic renal failure, stage 2 (mild); Essential hypertension, benign; Hypothyroidism, unspecified type; Hip pain; Leg cramps Start: 12-20-2021 End: 12-20-2021 Patient encounter procedure [facility] Start: 12-09-2021 Refill Jeffy Marin (Historic) Eduardo Work Phone: Neurology Comment on above: Refill Request Start: 05-01-2021 End: 05-01-2021 Subsequent hospital visit by physician Alfredito [facility] [place] Work Phone: Radiology Comment on above: Chronic pain of both knees [M25.561, M25.562, G89.29] Procedures Date Procedure Procedure Detail Performing Clinician Start: 10-24-2024 Thyrotropin [Units/v olume] in Serum or Plasma Zenon Huston MD Work Phone: Start: 06-28-2024 Radex spine lumbosac ral 2/3 views Francois Rosario ADMINISTRATIVE ACCOUNTANT.CIVIL ENGINEERING PROJECT DESIGNER Work Phone: Start: 06-28-2024 Urnls dip stick/tabl et rgnt auto w/o microscopy Francois Rosario ADMINISTRATIVE ACCOUNTANT.CIVIL ENGINEERING PROJECT DESIGNER Work Phone: Start: 06-07-2024 Us breast uni real t shaw with image limited Jeffy Fields MD Work Phone: Start: 03-23-2024 Radiologic exam ches t 2 views Jefyf Fields MD Work Phone: Start: 03-23-2024 Ecg routine ecg w/le ast 12 lds i&r only Jeffy Fields MD Work Phone: Start: 03-23-2024 Adult depression scr eening assessment Jeffy Fields MD Work Phone: Start: 03-23-2024 Thyrotropin [Units/v olume] in Serum or Plasma Mark Ridgeway OT Start: 03-14-2024 Radex fingr minimum 2 views Katrin Caraballo PA-C Work Phone: Start: 02-04-2024 Comprehensive metabo lic 2000 panel - Serum or Plasma [facility] Provider Start: 12-01-2023 Us breast uni real t shaw with image limited Lorraine Zamora PA-C Work Phone: Start: 12-01-2023 Digital breast tomosynthesis unilateral Lorraine Zamora PA-C Work Phone: Start: 10-15-2023 Colonoscopy flx dx w /collj spec when pfrmd Ralf Giles MD Work Phone: Start: 07-03-2023 Hepatobil syst imag inc gb w/pharma intervenj Ralf Giles MD Work Phone: Start: 06-08-2023 Computed tomography of abdomen and pelvis with intravenous contrast Dr. Jeffy Fields Work Phone: Start: 05-27-2023 Digital breast tomosynthesis unilateral Lorraine Rogers Zamora PA-C Work Phone: Start: 05-27-2023 Us breast uni real t shaw with image limited Lorraine ErwinRogerskelsey Zamora PA-C Work Phone: Start: 04-22-2023 Screening mammograph y bi 2-view breast inc cad Jeffy Fields MD Work Phone: Start: 04-07-2023 Radiologic exam abdo men 1 view Teteparul Galvin PA-C Work Phone: Start: 02-28-2023 Computed tomography of abdomen and pelvis with intravenous contrast Dr. Jeffy Fields Work Phone: Start: 02-02-2023 Us abdominal real ti me w/image limited Jeffy Fields MD Work Phone: Start: 01-23-2023 Thyrotropin [Units/v olume] in Serum or Plasma Zenon Huston MD Work Phone: Start: 05-12-2022 Radex ribs uni w/pos teroant ch minimum 3 views Jeffy Fields MD Work Phone: Start: 04-16-2022 Diagnostic mammograp hy computer-aided detcj uni Mónica Radha ADMINISTRATIVE ACCOUNTANT.CIVIL ENGINEERING PROJECT DESIGNER Work Phone: Start: 03-27-2022 Urnls dip stick/tabl et rgnt auto w/o microscopy [facility] Provider Start: 02-25-[address] BRANDON YATES MD Comment on above: RIGHT Start: 12-20-2021 MRI of lower extremity Start: 05-01-2021 Radiologic exam knee complete 4/more views Jeffy Fields MD Work Phone: Acquired trigger fin jareth (disorder) DR BRANDON YATES MD Appendectomy DR BRANDON Chambers MD Breast biopsy and re lated procedures DR BRANDON YATES MD Comment on above: LEFT Excision of major sa livary gland DR BRANDON YATES MD Extraction of cataract DR CASH VASQUEZ Comment on above: DOC Hysterectomy DR BRANDON Chambers MD Plan of Treatment Date Care Activity Detail Author Start: 11-17-2033 DTaP/Tdap/Td Vaccines (3 - Td or Tdap) DTaP/Tdap/Td Vaccines (3 - Td or Tdap) [facility] Start: 11-17-2033 Urine microalbumin profile DTaP,Tdap,Td Vaccine (3 - Td or Tdap) [facility] Start: 10-25-2027 Diabetes Screening Diabetes Screening [facility] Start: 03-23-2027 Diabetes Screening Diabetes Screening [facility] Start: 02-03-2027 Diabetes Screening Diabetes Screening [facility] Start: 09-24-2026 Diabetes Screening Diabetes Screening [facility] Start: 04-21-2026 DIABETES SCREEN DIABETES SCREEN [facility] Start: 04-21-2026 Diabetes Screening Diabetes Screening [facility] Start: 01-23-2026 DIABETES SCREEN DIABETES SCREEN [facility] Start: 10-24-2025 Thyroid stimulating hormone measurement TSH Level [facility] Start: 09-01-2025 DIABETES SCREEN DIABETES SCREEN [facility] Start: 08-13-2025 DIABETES SCREEN DIABETES SCREEN [facility] Start: 07-23-2025 DIABETES SCREEN DIABETES SCREEN [facility] Start: 06-21-2025 End: 06-21-2025 Patient encounter procedure 06/21/2025 10:00 AM EDT Office Visit Neurology [address] [place] [address] Mimi Elizondo, ADMINISTRATIVE ACCOUNTANT.CIVIL ENGINEERING PROJECT DESIGNER [address] [place] [address] 14 week follow up Neurology Comment on above: 14 week follow up Start: 06-13-2025 End: 09-12-2025 TOXICOLOGY SCREEN, ROUTINE URINE TOXICOLOGY SCREEN, ROUTINE URINE Lab Routine RLS (restless legs syndrome) PLMD (periodic limb movement disorder) High risk medication use Expected: 06/13/2025, Expires: 09/12/2025 [facility] Work Phone: Comment on above: Expected: 06/13/2025, Expires: Start: 05-26-2025 DIABETES SCREEN DIABETES SCREEN [facility] Start: 05-17-2025 End: 05-17-2025 Patient encounter procedure 05/17/2025 10:00 AM EDT Office Visit Family Medicine [facility] [address] [place] [address] Jeffy Fields MD [address] [facility] [place] [address] Medicare Wellness [facility] [place] Comment on above: Medicare Wellness Start: 05-05-2025 DIABETES SCREEN DIABETES SCREEN [facility] Start: 04-24-2025 Influenza vaccination Influenza Vaccine (#1) [facility] Start: 04-03-2025 End: 04-03-2025 Patient encounter procedure 04/03/2025 1:15 PM EDT Office Visit [facility] [address] [place] [phone] Zenon Huston MD [address] [place] [address] [facility] Start: 03-23-2025 Anxiety Screening Anxiety Screening [facility] Start: 03-23-2025 Covid-19 Vaccine () Covid-19 Vaccine () [facility] Comment on above: Postponed from 10/04/2023 (Declined at t his time) Start: 03-23-2025 Depression Screening Depression Screening [facility] Start: 03-23-2025 Screening for osteoporosis Bone Density Screening [facility] Comment on above: Postponed from 06/23/2018 (Declined at t his time) Start: 03-23-2025 Thyroid stimulating hormone measurement TSH Level [facility] Start: 03-13-2025 End: 03-13-2025 Patient encounter procedure 03/13/2025 9:20 AM EDT Office Visit Neurology [address] [facility] [place] [address] Jeffy Clark Jr., MD [address] [place], [place] [address] [facility] 09/08 RT- RLS, RBD, Tremors Neurology Comment on above: [facility] 09/08 RT- RLS, RBD, Tremors Start: 03-03-2025 DIABETES SCREEN DIABETES SCREEN [facility] Start: 02-20-2025 End: 02-20-2025 Patient encounter procedure 02/20/2025 2:15 PM EDT Office Visit [facility] [address] [place] [address] Zenon Huston MD [address] [place], [place] [id number] [facility] Start: 01-28-2025 DIABETES SCREEN DIABETES SCREEN [facility] Start: 01-18-2025 End: 01-18-2025 Patient encounter procedure 01/18/2025 2:00 PM EDT Office Visit [facility] [address] [place] [address] Zenon Huston MD [address] [place], [place] [id number] [facility] Start: 01-16-2025 DIABETES SCREEN DIABETES SCREEN [facility] Start: 01-11-2025 Occupational therapy management OT Plan of Care [facility] Start: 01-11-2025 End: 01-11-2025 ambulatory 01/11/2025 11:15 AM EDT Evaluation [facility] Therapy at [facility] [address] [place] [address] Jose Martin Jean PA-C [address] [place], [place] [id number] Carolina Anderson, OT [facility] at [facility] Start: 01-11-2025 End: 01-11-2025 Patient encounter procedure 01/11/2025 10:15 AM EDT Office Visit [facility] [address] [place] [phone] Zenon Huston MD [address] [place] [address] [facility] Start: 01-06-2025 End: 01-06-2025 Admission to same day surgery center 01/06/2025 10:00 AM EDT - 01/06/2025 11:[address] [facility] [address] [place] [phone] Zenon Huston MD [address] [place] [address] REVISION RIGHT MIDDLE FINGER INTERPHALANGEAL ARTHROPLASTY [53491 (CPT )] [facility] Comment on above: REVISION RIGHT MIDDLE FINGER INTERPHALAN GEAL ARTHROPLASTY [98920 (CPT )] Start: 01-06-2025 Subsequent hospital visit by physician 01/06/2025 10:00 AM EDT Hospital Encounter [facility] [address] [place] [phone] Zenon Huston MD [address] [place] [address] [facility] Start: 01-06-2025 End: 01-06-2025 Arthroplasty interphalangeal jt w/prosthetic ea [facility] Operating Room Start: 12-23-2024 End: 12-23-2024 Admission to establishment 12/23/2024 10:00 AM EDT Pre-Admission Testing [facility] Pre[facility]Ad[facility] Testing [address] [place] [phone] [facility] Start: 11-28-2024 End: 11-28-2024 Patient encounter procedure 11/28/2024 1:15 PM EDT Office Visit [facility] [address] [place] [phone] Katrin Caraballo PA-C [address] [place] [address] [facility] Start: 11-17-2024 Covid-19 Vaccine () Covid-19 Vaccine () [facility] Start: 11-17-2024 Covid-19 Vaccine () Covid-19 Vaccine () [facility] Start: 11-08-2024 End: 02-07-2025 CBC W Ordered Manual Differential panel - Blood PATHOLOGIST INTERPRETATION WITH CBC AND DIFF Lab Routine Leukopenia, unspecified type Expected: 11/08/2024, Expires: 02/07/2025 [facility] Work Phone: Comment on above: Expected: 11/08/2024, Expires: Start: 10-29-2024 DIABETES SCREEN DIABETES SCREEN [facility] Start: 10-21-2024 End: 01-20-2025 CBC W Auto Differential panel - Blood COMPLETE BLOOD COUNT AND DIFFERENTIAL Lab Routine Essential hypertension, benign Mixed hyperlipidemia Expected: 10/21/2024, Expires: 01/20/2025 [facility] Work Phone: Comment on above: Expected: 10/21/2024, Expires: Start: 10-21-2024 End: 01-20-2025 Comprehensive metabolic 2000 panel - Serum or Plasma COMPREHENSIVE METABOLIC PANEL Lab Routine Essential hypertension, benign Mixed hyperlipidemia Expected: 10/21/2024, Expires: 01/20/2025 [facility] Comment on above: Expected: 10/21/2024, Expires: Start: 10-21-2024 End: 01-20-2025 Lipid 1996 panel - Serum or Plasma LIPID PANEL BASIC Lab Routine Essential hypertension, benign Mixed hyperlipidemia Expected: 10/21/2024, Expires: 01/20/2025 [facility] Comment on above: Expected: 10/21/2024, Expires: Start: 10-21-2024 End: 01-20-2025 Thyrotropin [Units/volume] in Serum or Plasma THYROID STIMULATING HORMONE Lab Routine Hypothyroidism, unspecified type Expected: 10/21/2024, Expires: 01/20/2025 [facility] Comment on above: Expected: 10/21/2024, Expires: Start: 10-21-2024 End: 10-21-2024 Patient encounter procedure 10/21/2024 10:40 AM EST Office Visit Family [facility] [address] [place] [address] Jeffy Fields MD [address] [place] [address] 6 month f/u [facility] Comment on above: 6 month f/u Start: 09-23-2024 Urine microalbumin profile DTaP,Tdap,Td Vaccine (2 - Td or Tdap) [facility] Comment on above: Postponed from 05/23/2023 (Declined at t his time) Start: 09-08-2024 End: 09-08-2024 Patient encounter procedure 09/08/2024 2:30 PM EST Office Visit Neurology [address] [place] [address] Mimi Elizondo, ADMINISTRATIVE ACCOUNTANT.CIVIL ENGINEERING PROJECT DESIGNER [address] [place] [address] 2 month follow up Neurology Comment on above: 2 month follow up Start: 08-25-2024 End: 08-25-2024 Patient encounter procedure 08/25/2024 10:00 AM EST Office Visit Neurology [address] [place] [address] Mimi Elizondo APRN.CIVIL ENGINEERING PROJECT DESIGNER [address] [place] [address] 2 month follow up Neurology Comment on above: 2 month follow up Start: 08-24-2024 Advance Directive Discussion Advance Directive Discussion [facility] Start: 06-20-2024 End: 06-20-2024 Patient encounter procedure Neurology Comment on above: 6 month follow up 6 month follow up, l ov 4.22.24 RT, labs ordered, ropinirole 0.5mg, pregablin 50mgTID Start: 06-10-2024 End: 06-10-2024 Patient encounter procedure 06/10/2024 2:30 PM EDT Appointment Mammogram [address] [place] [address] SCREENING Mammogram Comment on above: SCREENING Start: 06-07-2024 End: 06-07-2024 Patient encounter procedure 06/07/2024 9:00 AM EDT Appointment Radiology [address] [place] [id number] 6 month follow up Radiology Comment on above: 6 month follow up Start: 04-24-2024 Covid-19 Vaccine ( season) Covid-19 Vaccine ( season) [facility] Start: 04-24-2024 Covid-19 Vaccine ( season) Covid-19 Vaccine ( season) [facility] Start: 04-24-2024 Influenza vaccination [facility] Start: 04-19-2024 End: 04-19-2024 Patient encounter procedure 04/19/2024 10:00 AM EDT Office Visit Family Kat Ferrari [address] [place] [address] Jennifer Broussard, ADMINISTRATIVE ACCOUNTANT.CIVIL ENGINEERING PROJECT DESIGNER [address] [place] [address] 4 week follow up Family [facility] Comment on above: 4 week follow up Start: 04-11-2024 End: 04-11-2024 Patient encounter procedure 04/11/2024 10:45 AM EDT Office Visit [facility] [address] [place] [phone] Zenon Huston MD [address] [place] [address] [facility] Start: 04-06-2024 End: 04-06-2025 XR Finger - right 2 Views XR fingers 2+ views right Imaging Routine Pain of right middle finger Expected: 04/06/2024, Expires: 04/06/2025 [facility] Work Phone: Comment on above: Expected: 04/06/2024, Expires: 5 Start: 03-23-2024 End: 06-22-2024 Comprehensive metabolic 2000 panel - Serum or Plasma [facility] Comment on above: Expected: 03/23/2024, Expires: Start: 03-23-2024 End: 06-22-2024 Erythrocyte sedimentation rate [facility] Comment on above: Expected: 03/23/2024, Expires: Start: 03-23-2024 End: 06-22-2024 Hemoglobin A1c in Blood [facility] Comment on above: Expected: 03/23/2024, Expires: Start: 03-23-2024 End: 06-22-2024 Magnesium [Mass/volume] in Serum or Plasma [facility] Comment on above: Expected: 03/23/2024, Expires: Start: 03-23-2024 End: 06-22-2024 Thyrotropin [Units/volume] in Serum or Plasma [facility] Comment on above: Expected: 03/23/2024, Expires: Start: 03-23-2024 End: 03-23-2024 Patient encounter procedure 03/23/2024 10:20 AM EDT Office Visit Family Kat Ferrari [address] [place] [address] Jeffy Fields MD [address] [place] [address] 6 month follow up Family Kat Ferrari Comment on above: 6 month follow up Start: 03-14-2024 End: 03-14-2024 Patient encounter procedure 03/14/2024 10:45 AM EDT Office Visit [facility] [address] [place] [phone] Zenon Huston MD [address] [place] [address] [facility] Start: 02-22-2024 End: 02-22-2024 Patient encounter procedure 02/22/2024 11:15 AM EDT Office Visit [facility] [address] [place] [phone] Zenon Huston MD [address] [place] [address] [facility] Start: 02-17-2024 End: 02-17-2024 ambulatory 02/17/2024 11:00 AM EDT Evaluation [facility] at [facility] [address] [place] [address] Mark Murphy, OT [facility] Start: 02-17-2024 End: 02-17-2024 Patient encounter procedure 02/17/2024 10:30 AM EDT Office Visit [facility] [address] [place] [address] Katrin Caraballo PA-C [address] [place] [address] [facility] Start: 02-12-2024 End: 02-12-2024 Admission to same day surgery center [facility] Comment on above: OPEN REDUCTION RIGHT MIDDLE FINGER PROXI MAL INTERPHALANGEAL JOINT [10453 (CPT )] Start: 02-12-2024 End: 02-12-[address] [facility] Start: 02-12-2024 End: 02-12-2024 Arthroplasty interphalangeal joint each [facility] Operating Room Start: 02-12-2024 End: 02-12-2024 Open tx interphalangeal joint dislocation [facility] Operating Room Start: 02-12-2024 Subsequent hospital visit by physician [facility] Start: 02-11-2024 End: 02-11-2024 Admission to establishment 02/11/2024 1:00 PM EDT Pre[facility] Testing [facility] [address] [place] [address] [facility] Start: 01-24-2024 Thyroid stimulating hormone measurement TSH Level [facility] Start: 11-26-2023 End: 06-25-2024 [facility] LEFT [facility] LEFT Radiology Routine Inconclusive mammogram Expected: 11/26/2023, Expires: 06/25/2024 [facility] Work Phone: Comment on above: Expected: 11/26/2023, Expires: Start: 11-26-2023 End: 06-25-2024 US BREAST LTD LEFT US BREAST LTD LEFT Radiology Routine Inconclusive mammogram Expected: 11/26/2023, Expires: 06/25/2024 [facility] Work Phone: Comment on above: Expected: 11/26/2023, Expires: Start: 10-04-2023 Covid-19 Vaccine () Covid-19 Vaccine () [facility] Start: 09-25-2023 End: 12-25-2023 CBC W Ordered Manual Differential panel - Blood PATHOLOGIST INTERPRETATION WITH CBC AND DIFF Lab Routine Leukopenia, unspecified type Expected: 09/25/2023, Expires: 12/25/2023 [facility] Work Phone: Comment on above: Expected: 09/25/2023, Expires: Start: 09-23-2023 End: 12-23-2023 Basic metabolic 2000 panel - Serum or Plasma BASIC METABOLIC PNL Lab Routine Essential hypertension, benign Expected: 09/23/2023, Expires: 12/23/2023 [facility] Work Phone: Comment on above: Expected: 09/23/2023, Expires: Start: 09-23-2023 End: 12-23-2023 CBC W Auto Differential panel - Blood CBC + DIFF Lab Routine Essential hypertension, benign Expected: 09/23/2023, Expires: 12/23/2023 [facility] Work Phone: Comment on above: Expected: 09/23/2023, Expires: 4 Start: 09-23-2023 End: 12-23-2023 Hemoglobin A1c in Blood HGB A1C Lab Routine Prediabetes Expected: 09/23/2023, Expires: 12/23/2023 [facility] Work Phone: Comment on above: Expected: 09/23/2023, Expires: 4 Start: 08-24-2023 Behavioral Health Screening Behavioral Health Screening [facility] Start: 07-25-2023 End: 09-24-2023 Hemoglobin A1c in Blood HGB A1C Lab Routine Prediabetes Expected: 07/25/2023, Expires: 09/24/2023 [facility] Work Phone: Comment on above: Expected: 07/25/2023, Expires: 4 Start: 06-08-2023 [facility] Start: 05-23-2023 Urine microalbumin profile [facility] Start: 04-24-2023 Influenza vaccination [facility] Start: 04-21-2023 End: 06-21-2023 Comprehensive metabolic 2000 panel - Serum or Plasma [facility] Work Phone: Comment on above: Expected: 04/21/2023, Expires: 3 Start: 01-23-2023 End: 03-25-2023 CBC W Auto Differential panel - Blood [facility] Work Phone: Comment on above: Expected: 01/23/2023, Expires: 3 Start: 01-23-2023 End: 03-25-2023 Comprehensive metabolic 2000 panel - Serum or Plasma [facility] Work Phone: Comment on above: Expected: 01/23/2023, Expires: 3 Start: 01-23-2023 End: 03-25-2023 Lipase [Enzymatic activity/volume] in Serum or Plasma [facility] Work Phone: Comment on above: Expected: 01/23/2023, Expires: 3 Start: 01-23-2023 End: 03-25-2023 Thyrotropin [Units/volume] in Serum or Plasma [facility] Work Phone: Comment on above: Expected: 01/23/2023, Expires: 3 Start: 09-14-2022 COVID-19 VACCINE (6 - Pfizer series) COVID-19 VACCINE (6 - Pfizer series) [facility] Start: 08-24-2022 ADVANCE DIRECTIVE DISCUSSION ADVANCE DIRECTIVE DISCUSSION [facility] Start: 08-24-2022 DEPRESSION ASSESSMENT DEPRESSION ASSESSMENT [facility] Start: 08-14-2022 End: 10-14-2022 Basic metabolic 2000 panel - Serum or Plasma BASIC METABOLIC PNL Lab Routine Leukopenia, unspecified type Renal insufficiency Expected: 08/14/2022, Expires: 10/14/2022 [facility] Work Phone: Comment on above: Expected: 08/14/2022, Expires: 3 Start: 08-14-2022 End: 10-14-2022 CBC W Ordered Manual Differential panel - Blood PATHOLOGIST INTERPRETATION WITH CBC AND DIFF Lab Routine Leukopenia, unspecified type Renal insufficiency Expected: 08/14/2022, Expires: 10/14/2022 [facility] Work Phone: Comment on above: Expected: 08/14/2022, Expires: 3 Start: 08-13-2022 End: 10-13-2022 C reactive protein [Mass/volume] in Serum or Plasma [facility] Work Phone: Comment on above: Expected: 08/13/2022, Expires: 3 Start: 08-13-2022 End: 10-13-2022 Comprehensive metabolic 2000 panel - Serum or Plasma [facility] Work Phone: Comment on above: Expected: 08/13/2022, Expires: 3 Start: 08-13-2022 End: 10-13-2022 Nuclear Ab [Presence] in Serum by Immunoassay [facility] Work Phone: Comment on above: Expected: 08/13/2022, Expires: 3 Start: 08-13-2022 End: 10-13-2022 Thyrotropin [Units/volume] in Serum or Plasma [facility] Work Phone: Comment on above: Expected: 08/13/2022, Expires: 3 Start: 08-13-2022 End: 10-13-2022 Thyroxine (T4) free [Mass/volume] in Serum or Plasma [facility] Work Phone: Comment on above: Expected: 08/13/2022, Expires: 3 Start: 08-13-2022 End: 10-13-2022 Urinalysis complete panel - Urine [facility] Work Phone: Comment on above: Expected: 08/13/2022, Expires: 3 Start: 07-23-2022 End: 09-22-2022 Basic metabolic 2000 panel - Serum or Plasma [facility] Work Phone: Comment on above: Expected: 07/23/2022, Expires: 3 Start: 07-23-2022 End: 09-22-2022 CBC W Auto Differential panel - Blood [facility] Work Phone: Comment on above: Expected: 07/23/2022, Expires: 3 Start: 07-23-2022 End: 09-22-2022 Creatine kinase [Enzymatic activity/volume] in Serum or Plasma [facility] Work Phone: Comment on above: Expected: 07/23/2022, Expires: 3 Start: 07-23-2022 End: 09-22-2022 Hemoglobin A1c in Blood [facility] Work Phone: Comment on above: Expected: 07/23/2022, Expires: 3 Start: 07-23-2022 End: 09-22-2022 Magnesium [Mass/volume] in Serum or Plasma [facility] Work Phone: Comment on above: Expected: 07/23/2022, Expires: 3 Start: 07-23-2022 End: 09-22-2022 Thyrotropin [Units/volume] in Serum or Plasma [facility] Work Phone: Comment on above: Expected: 07/23/2022, Expires: 3 Start: 05-12-2022 End: 07-12-2022 Basic metabolic 2000 panel - Serum or Plasma BASIC METABOLIC PNL Lab Routine Leukopenia, unspecified type Expected: 05/12/2022, Expires: 07/12/2022 [facility] Work Phone: Comment on above: Expected: 05/12/2022, Expires: 2 Start: 05-12-2022 End: 07-12-2022 CBC W Auto Differential panel - Blood CBC + DIFF Lab Routine Leukopenia, unspecified type Expected: 05/12/2022, Expires: 07/12/2022 [facility] Work Phone: Comment on above: Expected: 05/12/2022, Expires: 2 Start: 05-12-2022 End: 07-12-2022 Creatine kinase [Enzymatic activity/volume] in Serum or Plasma CK CREATINE KINASE Lab Routine Mixed hyperlipidemia Expected: 05/12/2022, Expires: 07/12/2022 [facility] Work Phone: Comment on above: Expected: 05/12/2022, Expires: 2 Start: 04-24-2022 Influenza vaccination INFLUENZA (#1) [facility] Start: 04-02-2022 End: 06-02-2022 Urinalysis complete panel - Urine URINALYSIS, WITH MICROSCOPIC Lab Routine Microscopic hematuria Expected: 04/02/2022, Expires: 06/02/2022 [facility] Work Phone: Comment on above: Expected: 04/02/2022, Expires: 2 Start: 04-02-2022 End: 04-02-2023 US LEG VEIN DVT UNL VAS LAB US LEG VEIN DVT UNL VAS LAB Vascular Lab STAT Right leg pain Expected: 04/02/2022, Expires: 04/02/2023 [facility] Work Phone: Comment on above: Expected: 04/02/2022, Expires: 3 Start: 01-31-2022 End: 04-02-2022 Basic metabolic 2000 panel - Serum or Plasma BASIC METABOLIC PNL Lab Routine Renal insufficiency Expected: 01/31/2022, Expires: 04/02/2022 [facility] Work Phone: Comment on above: Expected: 01/31/2022, Expires: 2 Start: 01-22-2022 End: 03-24-2022 Basic metabolic 2000 panel - Serum or Plasma BASIC METABOLIC PNL Lab Routine Hyponatremia Expected: 01/22/2022, Expires: 03/24/2022 [facility] Work Phone: Comment on above: Expected: 01/22/2022, Expires: 2 Start: 01-16-2022 End: 03-18-2022 Basic metabolic 2000 panel - Serum or Plasma [facility] Work Phone: Comment on above: Expected: 01/16/2022, Expires: 2 Start: 01-16-2022 End: 03-18-2022 CBC W Auto Differential panel - Blood [facility] Work Phone: Comment on above: Expected: 01/16/2022, Expires: 2 Start: 01-16-2022 End: 03-18-2022 IRON + TIBC [facility] Work Phone: Comment on above: Expected: 01/16/2022, Expires: 2 Start: 01-16-2022 End: 03-18-2022 Magnesium [Mass/volume] in Serum or Plasma [facility] Work Phone: Comment on above: Expected: 01/16/2022, Expires: 2 Start: 01-16-2022 End: 03-18-2022 Thyrotropin [Units/volume] in Serum or Plasma [facility] Work Phone: Comment on above: Expected: 01/16/2022, Expires: 2 Start: 08-24-2021 ADVANCE DIRECTIVE DISCUSSION ADVANCE DIRECTIVE DISCUSSION [facility] Start: 08-24-2021 DEPRESSION ASSESSMENT DEPRESSION ASSESSMENT [facility] Start: 06-23-2018 Screening for osteoporosis Bone Density Screening [facility] Start: 04-20-2016 PNEUMOCOCCAL: 65+ (3 - PPSV23 or PCV20) PNEUMOCOCCAL: 65+ (3 - PPSV23 or PCV20) [facility] Start: 03-24-2002 Medicare Annual Wellness Visit Medicare Annual Wellness Visit [facility] Start: 1997 Hepatitis B Vaccines (1 of 3 - Risk 3-dose series) Hepatitis B Vaccines (1 of 3 - Risk 3-dose series) [facility] Start: 1956 Hepatitis A Vaccines (1 of 2 - Risk 2-dose series) Hepatitis A Vaccines (1 of 2 - Risk 2-dose series) [facility] Start: 1949 Depression Screening Depression Screening [facility] Start: 1937 Lipid panel Lipid Panel [facility] Start: 1937 Medicare Annual Wellness (AWV) Medicare Annual Wellness (AWV) [facility] Start: 1937 Screening for osteoporosis Bone Density Scan [facility] Bacteria identified in Urine by Culture URINE CULTURE Microbiology Routine Urinary frequency 03/27/2022 3:27 PM EDT [facility] Work Phone: Bacteria identified in Urine by Culture URINE CULTURE Microbiology Routine Burning with urination Acute cystitis with hematuria 06/28/2024 11:08 AM EST [facility] Work Phone: Complete blood count [facility] Comprehensive metabo lic 2000 panel - Serum or Plasma [facility] DDI VIBRATION CONTRO LLED TRANSIENT ELASTOGRAPHY (VCTE) DDI VIBRATION CONTROLLED TRANSIENT ELASTOGRAPHY (VCTE) Endoscopy Routine Fatty metamorphosis of liver Ordered: 04/07/2023 [facility] Work Phone: Comment on above: Ordered: 04/07/2023 End: 05-10-2023 Diagnostic mammography computer-aided detcj uni KAITLIN DIAGNOSTIC LT Radiology STAT Inversion of left nipple Nipple anomaly 1 Occurrences starting 04/10/2022 until 05/10/2023 [facility] Work Phone: Comment on above: 1 Occurrences starting 04/10/2022 until 05/10/2023 ECG COMPLETE [facility] Work Phone: Comment on above: Ordered: 03/23/2024 End: 01-24-2024 Echocardiography ECHO Cardiology Routine Heart murmur 1 Occurrences starting 01/23/2023 until 01/24/2024 [facility] Work Phone: Comment on above: 1 Occurrences starting 01/23/2023 until 01/24/2024 End: 10-09-2024 Flexible sigmoidoscopy study COLONOSCOPY DIAGNOSTIC Endoscopy Routine Abdominal pain, LLQ 1 Occurrences starting 10/09/2023 until 10/09/2024 [facility] Work Phone: Comment on above: 1 Occurrences starting 10/09/2023 until 10/09/2024 Hemoglobin A1c in Blood HGB A1C Lab Routine Prediabetes 01/23/2023 11:54 AM EDT [facility] Work Phone: End: 07-23-2024 Hepatobil syst imag inc gb w/pharma intervenj NM HEPATOBILIARY W EF AND/OR RX Radiology Routine RUQ pain 1 Occurrences starting 06/24/2023 until 07/23/2024 [facility] Work Phone: Comment on above: 1 Occurrences starting 06/24/2023 until 07/23/2024 Lipid 1996 panel - S nnamdi or Plasma [facility] End: 05-29-2024 KAITLIN DIAGNOSTIC LEFT KAITLIN DIAGNOSTIC LEFT Radiology Routine Inconclusive mammogram 1 Occurrences starting 04/30/2023 until 05/29/2024 [facility] Work Phone: Comment on above: 1 Occurrences starting 04/30/2023 until 05/29/2024 End: 04-18-2024 KAITLIN SCREENING KAITLIN SCREENING Radiology Routine Encounter for screening mammogram for malignant neoplasm of breast 1 Occurrences starting 03/20/2023 until 04/18/2024 [facility] Work Phone: Comment on above: 1 Occurrences starting 03/20/2023 until 04/18/2024 End: 07-07-2025 MG Breast Screening KAITLIN SCREENING Radiology Routine Screening mammogram for breast cancer 1 Occurrences starting 06/07/2024 until 07/07/2025 [facility] Work Phone: Comment on above: 1 Occurrences starting 06/07/2024 until 07/07/2025 MG Breast Screening KAITLIN SCREENIN G Radiology Routine Screening mammogram for breast cancer 06/10/2024 2:25 PM EDT [facility] Work Phone: Patient Education ED Abdominal P ain Unkn Cause Fem [facility] Work Phone: Patient referral [facility] Work Phone: PT PLAN OF CARE CERTIFICATION PT PLAN OF CARE CERTIFICATION Procedures Routine Chronic left-sided thoracic back pain Ordered: 05/23/2022 [facility] Work Phone: Comment on above: Ordered: 05/23/2022 Radionuclide imaging of perfusion of myocardium under exercise stress [facility] SURGICAL PATHOLOGY [facility] Work Phone: Comment on above: Release Upon Ordering for 1 Occurrences starting 10/15/2023, 1 completed TOX SCREEN ROUT UR TOX SCREEN RO UT UR Lab Routine Medication monitoring encounter 09/23/2022 4:39 PM EST [facility] Work Phone: UA DIP, URINE (POC) UA DIP, URIN E (POC) Lab Routine Urinary frequency Ordered: 03/27/2022 [facility] Work Phone: Comment on above: Ordered: 03/27/2022 Urinalysis complete panel - Urine URINALYSIS, WITH MICROSCOPIC Lab Routine Microscopic hematuria 05/12/2022 10:50 AM EDT [facility] Work Phone: End: 02-22-2024 US ABD RIGHT UPPER QUADRANT US ABD RIGHT UPPER QUADRANT Radiology Routine RUQ pain 1 Occurrences starting 01/23/2023 until 02/22/2024 [facility] Work Phone: Comment on above: 1 Occurrences starting 01/23/2023 until 02/22/2024 End: 08-13-2023 US ARM ARTERIAL UNL VAS LAB US ARM ARTERIAL UNL VAS LAB Vascular Lab Routine Raynaud's phenomenon without gangrene 1 Occurrences starting 08/13/2022 until 08/13/2023 [facility] Work Phone: Comment on above: 1 Occurrences starting 08/13/2022 until 08/13/2023 End: 12-31-2024 US Breast - left limited US BREAST LTD LEFT Radiology Routine Abnormal mammogram 1 Occurrences starting 12/02/2023 until 12/31/2024 [facility] Work Phone: Comment on above: 1 Occurrences starting 12/02/2023 until 12/31/2024 End: 05-29-2024 US BREAST LTD LEFT US BREAST LTD LEFT Radiology Routine Inconclusive mammogram 1 Occurrences starting 04/30/2023 until 05/29/2024 [facility] Work Phone: Comment on above: 1 Occurrences starting 04/30/2023 until 05/29/2024 End: 05-10-2023 Us breast uni real time with image limited US BREAST LTD LT Radiology STAT Inversion of left nipple Nipple anomaly 1 Occurrences starting 04/10/2022 until 05/10/2023 [facility] Work Phone: Comment on above: 1 Occurrences starting 04/10/2022 until 05/10/2023 End: 05-06-2024 XR ABDOMEN 1V SUPINE XR ABDOMEN 1V SUPINE Radiology Routine Ileus (HCC) 1 Occurrences starting 04/07/2023 until 05/06/2024 [facility] Work Phone: Comment on above: 1 Occurrences starting 04/07/2023 until 05/06/2024 XR ABDOMEN 1V SUPINE XR ABDOMEN 1V SUPINE Radiology Routine Ileus (HCC) 04/07/2023 10:43 AM EDT [facility] Work Phone: End: 04-22-2025 XR Chest PA and Lateral XR CHEST 2V FRONTAL/LAT Radiology Routine Chest pain, unspecified type 1 Occurrences starting 03/23/2024 until 04/22/2025 [facility] Comment on above: 1 Occurrences starting 03/23/2024 until 04/22/2025 XR Chest PA and Lateral XR CHEST 2V FRONTAL/LAT Radiology Routine Chest pain, unspecified type 03/23/2024 11:51 AM EDT [facility] End: 06-11-2023 XR RIBS/CHEST 3V AP RIB/OBLS/CXR LEFT XR RIBS/CHEST 3V AP RIB/OBLS/CXR LEFT Radiology Routine Chronic left-sided thoracic back pain 1 Occurrences starting 05/12/2022 until 06/11/2023 [facility] Work Phone: Comment on above: 1 Occurrences starting 05/12/2022 until 06/11/2023 XR RIBS/CHEST 3V AP RIB/OBLS/CXR LEFT XR RIBS/CHEST 3V AP RIB/OBLS/CXR LEFT Radiology Routine Chronic left-sided thoracic back pain 05/12/2022 11:37 AM EDT [facility] Work Phone: [facility] Immunizations Immunization Date Immunization Notes Care Provider [facility] 05-20-2024 influenza, high dose seasonal, preservative-free Jeffy Fields MD Work Phone: [facility] 05-20-2024 influenza virus vacc ine, unspecified formulation Jeffy Clark Jr., MD Work Phone: [facility] 11-18-2023 tetanus toxoid, redu pat diphtheria toxoid, and acellular pertussis vaccine, adsorbed Ralf Giles MD Work Phone: [facility] 06-03-2023 COVID-19 vaccine, ag e 12+ yr, season (MODERNA) Jeffy Fields MD Work Phone: [facility] 06-03-2023 influenza (HD-IIV4) vaccine, age 65+ yr, high dose, quadrivalent, PF (FLUZONE HIGH-DOSE) Jeffy Fields MD Work Phone: [facility] 06-03-2023 respiratory syncytia l virus (RSV) vaccine, bivalent (ABRYSVO) Jeffy Fields MD Work Phone: [facility] 06-03-2023 influenza virus vacc ine, unspecified formulation Jeffy Clark Jr., MD Work Phone: [facility] 06-16-2022 influenza (HD-IIV4) vaccine, age 65+ yr, high dose, quadrivalent, PF (FLUZONE HIGH-DOSE) Jeffy Fields MD Work Phone: [facility] 06-16-2022 influenza virus vacc ine, unspecified formulation Jeffy Fields MD Work Phone: [facility] 12-04-2021 SARS-CoV-2 mRNA (pjnpahfjejx-vzue-cummor e) vaccine DR BRANDON YATES MD [facility] 06-06-2021 COVID-19 vaccine, ag e 12+ yr (Gather App-BIONTScoreStreak - PURPLE [facility]) Jeffy Clark Jr. Work Phone: [facility] Comment on above: Result Comment: 2021: [id number] 06-06-2021 COVID-19 vaccine, unspecified formulation Jeffy Fields MD Work Phone: [facility] 06-06-2021 influenza nasal, unspecified formulation Jeffy Fields MD Work Phone: [facility] 06-06-2021 influenza virus vacc ine, unspecified formulation DR BRANDON YATES MD [facility] 06-06-2021 influenza, high dose seasonal, preservative-free Jeffy Clark Jr. Work Phone: [facility] 06-06-2021 influenza, high-dose , quadrivalent vaccine (FLUZONE HIGH DOSE QUADRIVALENT) Jeffy Clark Jr. Work Phone: [facility] 06-06-2021 influenza, injectabl e, quadrivalent, contains preservative Jeffy Fields MD Work Phone: [facility] 10-11-2020 COVID-19 vaccine, ag e 12+ yr (PFIZER-BIONTECH - PURPLE TOP) Jeffy Clark Jr. Work Phone: [facility] Comment on above: Result Comment: [id number]: [id number] 09-20-2020 COVID-19 vaccine, ag e 12+ yr (PFIZER-BIONTECH - PURPLE TOP) Jeffy Clark Jr. Work Phone: [facility] Work Phone: 05-25-2020 influenza (aIIV4) vaccine, age 65+ yr, quadrivalent, PF (FLUAD QUADRIVALENT) Jeffy Clark Jr. Work Phone: [facility] 05-25-2020 influenza nasal, unspecified formulation Jeffy Fields MD Work Phone: [facility] 05-25-2020 influenza virus vacc ine, unspecified formulation DR BRANDON YATES MD [facility] 05-25-2020 influenza, high dose seasonal, preservative-free Jeffy Clark Jr. Work Phone: [facility] 05-27-2019 influenza, high dose seasonal, preservative-free Jeffy Clark Jr. Work Phone: [facility] 12-01-2018 zoster vaccine recombinant Jeffy Clark Jr. Work Phone: [facility] 06-10-2018 influenza, high dose seasonal, preservative-free Jeffy Clark Jr. Work Phone: [facility] 05-24-2018 influenza virus vacc ine, unspecified formulation Jeffy Fields MD Work Phone: [facility] 05-23-2018 zoster vaccine recombinant Jeffy Clark Jr. Work Phone: [facility] 06-05-2017 influenza, high dose seasonal, preservative-free Jeffy Clark Jr. Work Phone: [facility] 06-12-2016 influenza, high dose seasonal, preservative-free Jeffy Clark Jr. Work Phone: [facility] 06-07-2016 influenza, seasonal, injectable Jeffy Clark Jr. Work Phone: [facility] 06-07-2015 influenza, high dose seasonal, preservative-free Jeffy Clark Jr. Work Phone: [facility] 04-20-2015 pneumococcal conjuga te vaccine, 13 valent Jeffy Clark Jr. Work Phone: [facility] 05-23-2013 influenza virus vacc ine, unspecified formulation Jeffy Clark Jr. Work Phone: [facility] 05-23-2013 tetanus toxoid, redu pat diphtheria toxoid, and acellular pertussis vaccine, adsorbed Jeffy Clark Jr. Work Phone: [facility] 05-29-2012 influenza virus vacc ine, unspecified formulation Jeffy Clark Jr. Work Phone: [facility] 07-15-2011 influenza virus vacc ine, unspecified formulation Jeffy Clark Jr. Work Phone: [facility] Work Phone: 02-14-2011 zoster vaccine, live Jeffy Clark Jr. Work Phone: [facility] Work Phone: 09-11-2009 novel influenza-H1N1 -09, preservative-free, injectable Jeffy Clark Jr. Work Phone: [facility] 07-04-2008 influenza virus vacc ine, unspecified formulation Jeffy Clark Jr. Work Phone: [facility] Work Phone: 06-21-2007 influenza virus vacc ine, unspecified formulation Jeffy Clark Jr. Work Phone: [facility] Work Phone: 11-20-2005 pneumococcal polysaccharide vaccine, 23 valent Jeffy Clark Jr. Work Phone: [facility] 09-24-2002 tetanus and diphther ia toxoids, adsorbed, preservative free, for adult use (2 Lf of tetanus toxoid and 2 Lf of diphtheria toxoid) Jeffy Clark Jr. Work Phone: [facility] Work Phone: Payers Date Payer Category Payer Self-pay [id number] 2016 [facility] SUPPLEMENT [id number] 2016 Medicare supplementa l policy (as second payer) JARAD MEDICARE SUPPLEMENT [id number] 2016 Unknown ANTHEM ANTHEM ME DICARE SUPPLEMENT [id number] 2016-Present [phone] [address] [place] [address] Indemnity [id number] 2016 Unknown [id number] 2005 Unknown [id number] 2002 Medicare MEDICARE MEDICAR E A AND B [id number] 2002-Present [phone] [place] [address] Medicare [id number] 2002 Medicare [id number] 2002 Medicare [id number] Unknown [id number] Unknown [id number] Unknown [id number] Unknown [id number] Unknown [id number] Unknown [id number] Unknown [id number] Unknown [id number] Unknown [id number] Social History Date Type Detail Facility Start: 02-10-2022 End: 02-08-2024 Tobacco smoking status NHIS Never smoked tobacco [facility] Start: 11-01-2021 End: 03-13-2025 Alcohol intake Current non-drinker of alcohol (finding) [facility] Start: 10-18-2020 End: 07-23-2022 History SDOH Alcohol Frequency 1 [facility] Start: 10-18-2020 End: 07-23-2022 History SDOH Social Connections Phone 3 [facility] Start: 10-18-2020 End: 07-23-2022 History SDOH Social Connections Get Together 2 [facility] Start: 10-18-2020 End: 07-23-2022 History SDOH Physical Activity DPW 6 [facility] Start: 10-18-2020 History SDOH Financial 5 [facility] Start: 10-18-2020 Education 15 [facility] Start: 1935 Sex Assigned At Not on file [facility] Start: 01-27-2021 End: 06-08-2023 Tobacco smoking status NHIS Unknown if ever smoked [facility] Start: 1935 Sex Assigned At Female [facility] Work Phone: Start: 04-01-2021 End: 07-23-2022 Exposure to SARS-CoV-2 (event) Not sure [facility] Start: 01-23-2022 History SDOH Alcohol Std Drinks 98 [facility] Start: 01-23-2022 End: 07-23-2022 History SDOH Physical Activity DPW 4 [facility] Start: 01-23-2022 History SDOH Physical Activity MPS 7 [facility] Start: 02-13-2011 End: 02-08-2024 Tobacco use and exposure Smokeless tobacco non-user [facility] Start: 07-23-2022 History SDOH Alcohol Std Drinks 0 [facility] Start: 07-22-2022 End: 01-11-2025 History of Social function [facility] Start: 07-22-2022 End: 01-11-2025 Social connection and isolation panel [facility] Do you belong to any clubs or organizations such as restoration groups, unions, fraternal or athletic groups, or school groups? Yes [facility] Are you now , , , , never or living with a partner? [facility] How often to you hav e a drink containing alcohol? Never [facility] How many standard dr inks containing alcohol do you have on a typical day? Patient does not drink [facility] How hard is it for y ou to pay for the very basics like food, housing, medical care, and heating Not very hard [facility] Do you feel stress - tense, restless, nervous, or anxious, or unable to sleep at night because your mind is troubled all the time - these days [OSQ] Not at all [facility] (I/We) worried harriet (my/our) food would run out before (I/we) got money to buy more. Never true [facility] In the past 12 month s, was there a time when you were not able to pay the mortgage or rent on time? No [facility] Start: 02-08-2024 End: 01-11-2025 Alcoholic beverage intake Lifetime non-drinker (finding) [facility] Do you feel stress - tense, restless, nervous, or anxious, or unable to sleep at night because your mind is troubled all the time - these days [OSQ] Only a little [facility] Start: 10-25-2024 Sexual orientation Heterosexual (finding) [facility] Start: 04-07-2023 Sex Female (finding) [facility] Medical Equipment Procedure Code Equipment Code Equipment Origin al Text Equipment Identifier Dates Blunt Flexspan Finger Joint Implant W/O Grommets [id number] Start: 02-12-2024 Blunt Flexspan Finger Joint Size 2 [id number] Start: 01-06-2025 Functional Status Date Assessment Result Facility 02-26-2022 Functional Status Door open, Room check performed [facility] 02-26-2022 Functional Status [facility] 02-26-2022 Functional Status 2 [facility] 02-26-2022 Functional Status [facility] 02-26-2022 [facility] Functional Status Assistive Vaishnavi ce Gait belt, Walker [facility] 02-25-2022 Functional Status Corazon harrison [facility] 02-25-2022 Functional Status Corazon Lara [facility] 02-25-2022 Functional Status Single level home [facility] 02-25-2022 Functional Status Sensory Deficits None A [facility] 02-25-2022 Functional Status ice on, tension pillow in place [facility] 02-25-2022 Functional Status NPO Status Dejah ntained, More than 8 hours [facility] 02-10-2022 Functional Status Sensory Deficits None A [facility] 08-07-2014 Are you deaf, or do you have serious difficulty hearing No 08/07/2014 9:38 AM Ashwini Ceja MA No [facility] 08-07-2014 Are you blind, or do you have serious difficulty seeing, even when wearing glasses No 08/07/2014 9:38 AM Ashwini Ceja MA No [facility] 08-07-2014 Do you have serious difficulty walking or climbing stairs No 08/07/2014 9:38 AM Ashwini Ceja MA [facility] 08-07-2014 Do you have difficul ty dressing or bathing No 08/07/2014 9:38 AM Ashwini Ceja MA [facility] 08-07-2014 Because of a physica l, mental, or emotional condition, do you have difficulty doing errands alone such as visiting a physician's office or shopping No 08/07/2014 9:38 AM Ashwini Ceja MA [facility] Mental Status Date Assessment Result Facility 02-26-2022 Mental Status Orientation Asse ssment Oriented x 4 [facility] 02-26-2022 Mental Status Oriented x 4 [facility] 02-26-2022 Mental Status [facility] 02-26-2022 Mental Status [facility] jackie Chandra Emmett 08-07-2014 Because of a physica l, mental, or emotional condition, do you have serious difficulty concentrating, remembering, or making decisions No 08/07/2014 9:38 AM Ashwini Ceja MA No [facility] Clinical Notes 08-20-2018 to 03-23-2025 Carolina Anderson OT - 03/23/2025 5:14 PM EDTTelephone Encounter - Yas Cooper LPN - 03/21/2025 3:51 PM EDTTelephone Encounter - Yas Cooper LPN - 03/21/2025 3:51 PM EDTPatient Instructions Note Date & Type Note Facility 03-23-2025 History of Presen t illness Narrative Images from the original note were not included. [facility] AT [address] [facility] [id number] Discharge Notification Patient Name: Chinyere Alberts : 1935 Today's Date: 03/23/2025 Patient has not been seen since 01/18/25. The patient will be discharged at this time due to inactivity. The patient has not been seen for outpatient therapy in 30+ days and has not made contact to reschedule. The patient will require new referral/evaluation to resume therapy in the future. The patient will be discharged at this time. Please refer to initial evaluation or re-assessment for last goals/objective measures assessment and progress report. Thank you for this referral. For any questions on this patient s course of therapy, please call the clinic for clarification. Carolina Anderson OT documented in this encounter [facility] 03-21-2025 Telephone encounter Note This was faxed 03/17/25 but will resend again today. Yas Cooper LPN [facility] 03-21-2025 Miscellaneous Notes This was faxed 03/17/25 but will resend again today. Yas Cooper LPN Emili with [facility] calling regarding prescription received from Dr. Clark's office regarding medical doctor md for patient's RLS. Emili states she needs 2 things: 1) Needs Dr. Clark to add NPI number to script 2) Needs Dr. Clark to change the period of time for order to 24 months or less for Medicare requirements. Currently Lifetime is checked and this will not be covered. [facility] provider can send new script with these corrections. Veronika Nguyen RN documented in this encounter [facility] 03-21-2025 Telephone encounter Note Emili with [facility] calling regarding prescription received from Dr. Clark's office regarding medical doctor md for patient's RLS. Emili states she needs 2 things: 1) Needs Dr. Clark to add NPI number to script 2) Needs Dr. Clark to change the period of time for order to 24 months or less for Medicare requirements. Currently Lifetime is checked and this will not be covered. [facility] provider can send new script with these corrections. Veronika Nguyen RN [facility] 03-13-2025 Telephone encounter Note Nidra application completed and faxed with required documentation. Yas Cooper LPN [facility] 03-13-2025 Miscellaneous Notes [employer] application completed and faxed with required documentation. Yas Cooper LPN documented in this encounter [facility] 03-13-2025 Instructions Jeffy Clark Jr., MD - 03/13/2025 10:57 AM EDT documented in this encounter [facility] 03-13-2025 Note HNO ID: [id number] Author: JEFFY CLARK JR, MD Service: ? Author Type: Physician Type: Progress Notes Filed: 03/13/2025 10:57 Note Text: ESTABLISHED PATIENT VISIT CHIEF COMPLAINT: Follow Up HISTORY OF PRESENT ILLNESS: Chinyere Alberts is a 89 year old female, BMI 20.41 kg/m2 with a PMH significant for and per last office visit of 09/08/24: Rls (restless legs syndrome) (primary encounter diagnosis) Plmd (periodic limb movement disorder) Dream enactment behavior Insomnia, unspecified type Chinyere Alberts is a delightful 89 year old female with RLS, PLMD, dream enactment behavior, sleep maintenance insomnia She is pleased with current regimen of medication for RLS/PLMD; says sxs are the best they have ever been despite having some sxs intermittently during the day or in the middle of the night. She is frustrated when she awakes at 330-4 AM and can't fall back asleep; she routinely gets out of bed at 5 AM. No issues with KIMBERLEE. PLAN: Try getting out of bed if can't sleep eg at 330 AM, do something boring until drowsy again, then back to bed, retrain brain this way Continue pregabalin 50 mg at noon, HS, and MN Continue ropinirole 0.5 mg at noon, 430 pm, 830 pm and MN when she awakes in the night Has never used topicals for RLS; can try Theraworx relief for muscle cramps roll on or foam Iron stores are always normal; last checked 11/2023 Renal function has been stable She will let me know when she needs refills of meds Reports no new medical conditions. No new meds. Walking 2 miles every day. Patient feels the RLS is pretty well controlled. Occaionally has some jerking prior to falling asleep but does not last long. Also can occur while asleep and wake patient up. Taking Lyrica 50mg at noon, HS, and MN. Ropinirole also unchanged as above. Symptoms occur on average about once per week. Iron levels have been unremarkable. Denies any dream enactment since last visit with Reyes Elizondo CNP. Still can have nasty dreams. Patient brings in journal. Scary dream about one night per month, and jerking about 4-5 nights per month. That said, no symptoms in the month of January. Currently waking 2-4 times per night due to symptoms, despite medications. REVIEW OF SYSTEMS GENERAL:No weight loss, malaise or fevers. HEENT:Negative for frequent or significant headaches, No changes in hearing or vision, no nose bleeds or other nasal problems NECK:Negative for lumps, goiter, pain and significant neck swelling RESPIRATORY: Negative for cough, wheezing or shortness of breath. CARDIOVASCULAR: Few episodes of CP - pt's PCP aware and is going to have a stress test in 1-2 weeks. Following with cardiology. GASTROINTESTINAL: Negative for abdominal discomfort, blood in stools or black stools or change in bowel habits GENITOURINARY: No history of dysuria, frequency or incontinence MUSCULOSKELETAL: See HPI. NEUROLOGIC:Negative for focal numbness or weakness, headaches and dizziness or syncope, vision changes, speech/languag changes - EXCEPT that as per HPI above. SKIN:Negative for lesions, rash, and itching. LAB/IMAGING: Those performed since patient's last visit have been reviewed. WBC (k/uL) Date Value 11/11/2024 5.34 RBC (m/uL) Date Value 11/11/2024 4.31 Hemoglobin (g/dL) Date Value 11/11/2024 13.1 Hematocrit (%) Date Value 11/11/2024 39.6 MCV (fL) Date Value 11/11/2024 91.9 MCH (pg) Date Value 11/11/2024 30.4 MCHC (g/dL) Date Value 11/11/2024 33.1 RDW-CV (%) Date Value 11/11/2024 12.3 Platelet Count (k/uL) Date Value 11/11/2024 151 MPV (fL) Date Value 11/11/2024 10.1 Glucose (mg/dL) Date Value 10/24/2024 90 BUN (mg/dL) Date Value 10/24/2024 19 Creatinine (mg/dL) Date Value 10/24/2024 0.98 (H) Sodium (mmol/L) Date Value 10/24/2024 136 Potassium (mmol/L) Date Value 10/24/2024 4.1 Chloride (mmol/L) Date Value 10/24/2024 98 CO2 (mmol/L) Date Value 10/24/2024 30 Protein, Total (g/dL) Date Value 10/24/2024 6.4 Albumin (g/dL) Date Value 10/24/2024 4.0 Calcium, Total (mg/dL) Date Value 10/24/2024 9.9 Alkaline Phosphatase (U/L) Date Value 10/24/2024 85 Bilirubin, Total (mg/dL) Date Value 10/24/2024 0.4 AST (U/L) Date Value 10/24/2024 16 ALT (U/L) Date Value 10/24/2024 12 Hep C Antibody IA (no units) Date Value 05/01/2011 Negative MEDICATIONS: losartan (COZAAR) 50 mg tablet Take 1 tablet by mouth once daily. rOPINIRole (REQUIP) 0.5 mg tablet one tablet at noon and 4PM, 1 tablets at 8PM and 1 tablet at midnight. levothyroxine (SYNTHROID) 50 mcg tablet Take 1 tablet by mouth once daily 6 out of 7 days per week. omeprazole (PRILOSEC) 20 mg capsule Take one tablet by mouth q day simvastatin (ZOCOR) 40 mg tablet Take 1 tablet by mouth daily at bedtime. polyethylene glycol 3350 (MIRALAX) 17 gram/dose powder Take 17 g by mouth once daily. Dissolve dose in 4 - 8 ounces (more content not included)... [facility] 03-13-2025 History of Presen t illness Narrative ESTABLISHED PATIENT VISIT CHIEF COMPLAINT: Follow Up HISTORY OF PRESENT ILLNESS: Chinyere Alberts is a 89 year old female, BMI 20.41 kg/m2 with a PMH significant for and per last office visit of 09/08/24: Rls (restless legs syndrome) (primary encounter diagnosis) Plmd (periodic limb movement disorder) Dream enactment behavior Insomnia, unspecified type Chinyere Alberts is a delightful 89 year old female with RLS, PLMD, dream enactment behavior, sleep maintenance insomnia She is pleased with current regimen of medication for RLS/PLMD; says sxs are the best they have ever been despite having some sxs intermittently during the day or in the middle of the night. She is frustrated when she awakes at 330-4 AM and can't fall back asleep; she routinely gets out of bed at 5 AM. No issues with KIMBERLEE. PLAN: Try getting out of bed if can't sleep eg at 330 AM, do something boring until drowsy again, then back to bed, retrain brain this way Continue pregabalin 50 mg at noon, HS, and MN Continue ropinirole 0.5 mg at noon, 430 pm, 830 pm and MN when she awakes in the night Has never used topicals for RLS; can try Theraworx relief for muscle cramps roll on or foam Iron stores are always normal; last checked 11/2023 Renal function has been stable She will let me know when she needs refills of meds Reports no new medical conditions. No new meds. Walking 2 miles every day. Patient feels the RLS is pretty well controlled. Occaionally has some jerking prior to falling asleep but does not last long. Also can occur while asleep and wake patient up. Taking Lyrica 50mg at noon, HS, and MN. Ropinirole also unchanged as above. Symptoms occur on average about once per week. Iron levels have been unremarkable. Denies any dream enactment since last visit with Reyes Elizondo CNP. Still can have nasty dreams. Patient brings in journal. Scary dream about one night per month, and jerking about 4-5 nights per month. That said, no symptoms in the month of January. Currently waking 2-4 times per night due to symptoms, despite medications. REVIEW OF SYSTEMS GENERAL:No weight loss, malaise or fevers. HEENT:Negative for frequent or significant headaches, No changes in hearing or vision, no nose bleeds or other nasal problems NECK:Negative for lumps, goiter, pain and significant neck swelling RESPIRATORY: Negative for cough, wheezing or shortness of breath. CARDIOVASCULAR: Few episodes of CP - pt's PCP aware and is going to have a stress test in 1-2 weeks. Following with cardiology. GASTROINTESTINAL: Negative for abdominal discomfort, blood in stools or black stools or change in bowel habits GENITOURINARY: No history of dysuria, frequency or incontinence MUSCULOSKELETAL: See HPI. NEUROLOGIC:Negative for focal numbness or weakness, headaches and dizziness or syncope, vision changes, speech/languag changes - EXCEPT that as per HPI above. SKIN:Negative for lesions, rash, and itching. LAB/IMAGING: Those performed since patient's last visit have been reviewed. WBC (k/uL) Date Value 11/11/2024 5.34 RBC (m/uL) Date Value 11/11/2024 4.31 Hemoglobin (g/dL) Date Value 11/11/2024 13.1 Hematocrit (%) Date Value 11/11/2024 39.6 MCV (fL) Date Value 11/11/2024 91.9 MCH (pg) Date Value 11/11/2024 30.4 MCHC (g/dL) Date Value 11/11/2024 33.1 RDW-CV (%) Date Value 11/11/2024 12.3 Platelet Count (k/uL) Date Value 11/11/2024 151 MPV (fL) Date Value 11/11/2024 10.1 Glucose (mg/dL) Date Value 10/24/2024 90 BUN (mg/dL) Date Value 10/24/2024 19 Creatinine (mg/dL) Date Value 10/24/2024 0.98 (H) Sodium (mmol/L) Date Value 10/24/2024 136 Potassium (mmol/L) Date Value 10/24/2024 4.1 Chloride (mmol/L) Date Value 10/24/2024 98 CO2 (mmol/L) Date Value 10/24/2024 30 Protein, Total (g/dL) Date Value 10/24/2024 6.4 Albumin (g/dL) Date Value 10/24/2024 4.0 Calcium, Total (mg/dL) Date Value 10/24/2024 9.9 Alkaline Phosphatase (U/L) Date Value 10/24/2024 85 Bilirubin, Total (mg/dL) Date Value 10/24/2024 0.4 AST (U/L) Date Value 10/24/2024 16 ALT (U/L) Date Value 10/24/2024 12 Hep C Antibody IA (no units) Date Value 05/01/2011 Negative MEDICATIONS: losartan (COZAAR) 50 mg tablet Take 1 tablet by mouth once daily. rOPINIRole (REQUIP) 0.5 mg tablet one tablet at noon and 4PM, 1 tablets at 8PM and 1 tablet at midnight. levothyroxine (SYNTHROID) 50 mcg tablet Take 1 tablet by mouth once daily 6 out of 7 days per week. omeprazole (PRILOSEC) 20 mg capsule Take one tablet by mouth q day simvastatin (ZOCOR) 40 mg tablet Take 1 tablet by mouth daily at bedtime. polyethylene glycol 3350 (MIRALAX) 17 gram/dose powder Take 17 g by mouth once daily. Dissolve dose in 4 - 8 ounces of liquid and take as directed. TURMERIC ORAL Take 2 capsules by mouth once daily. calcium carbonate/vitamin D3 (CALCIUM WITH VITAMIN D ORAL) Take 1 tablet by mouth once daily. IPRATROPIUM BROMIDE NASAL Use 1 Leburn in the nose twice daily. hypromellose(GENTEAL MODERATE 0.3 % EYE DROPS) To left eye ASPIRIN 81 MG TAB Take one (1) tablet daily . pregabalin (LYRICA) 50 mg capsule 1 capsule at noon, bedtime, and midnight HISTORIES PAST MEDICAL HISTORY Diagnosis Date Anemia of chronic renal failure, stage 2 (mild) 05/19/2006 Arthritis left foot and right thumb Diabetes mellitus (HCC) Esophageal reflux Essential hypertension, benign Essential tremor GERD (gastroesophageal reflux disease) Heart murmur Hiatal hernia 08/25/2018 Other and unspecified hyperlipidemia Senile osteoporosis Unspecified hypothyroidism FAMILY HISTORY Problem Relation Age of Onset Heart Mother massive HI, in her 70's other (Other) Father unknown Alzheimer's Disease Sister Cancer Maternal Grandmother GI CANCER Heart Maternal Aunt Diabetes Maternal Aunt Heart Maternal Uncle Colon Cancer No Family History SOCIAL HISTORY Social History Tobacco Use Smoking status: Never Smokeless tobacco: Never Vaping Use Vaping status: Never Used Substance Use Topics Alcohol use: No Drug use: No PHYSICAL EXAMINATION BP 121/66 Pulse 60 Resp 16 Wt 49 kg (108 lb) SpO2 99% BMI 20.41 kg/m GENERAL EXAM: General appearance: NAD, pleasant. HEENT: NC/AT, nasal congestion absent, no oral lesions, membranes moist. NECK: No masses, supple. Lungs: CTA bilaterally. CV: RRR nl S1, S2. Extr: No cyanosis, clubbing or edema. Skin: Cool to touch. NEUROLOGICAL EXAM: General: Awake, alert, oriented x3 (person,place,time), fluent, no dysarthria; comprehension, naming, repetition intact. CN: PERRL, EOMI and without nystagmus, VFF to confrontation, facial sensation and strength are normal and symmetric, hearing is intact to finger rub bilaterally, palate and tongue movements are intact and symmetric. SCM and trapezius strength normal. Motor: Normal tone, bulk and strength (5/5) bilaterally (throughout extremities x4). Coordination: FNF, FLORENCIO, HTS intact. No tremors. Sensation: Light touch, vibration, temperature intact throughout. No evidence of neglect. Gait: Stable with normal stride and arm swing. Assessment and Plan: ASSESSMENT/PLAN: 1. PLMD (periodic limb movement disorder) - ICD9: 327.51, ICD10: G47.61 (primary diagnosis) 2. RLS (restless legs syndrome) - ICD9: 333.94, ICD10: G25.81 3. Dream enactment behavior - ICD9: 327.42, ICD10: G47.52 4. Insomnia, unspecified type - ICD9: 780.52, ICD10: G47.00 5. High risk medication use - ICD9: V58.69, ICD10: Z79.899 Overall, patient's condition stable, but still waking up through the night and requiring multiple med doses throughout the day and night time hours. Continues on Lyrica and Ropinirole as above. However, given the amount of meds needed, and persistence of symptoms, we did discuss possible treatment with Nidra today - device d/w pt in detail. Will place request for device through company and insurance. Goal would be for improvement of RLS and associated PLMs that would then allow for patient to reduce current meds (given age) and hopefully allow for patient to sleep through the night. No dream enactment of late but still with rare scary dream as above. Etiology uncertain. Possibly side effect of meds. Also possibly due to life stressor at the time with again, frequency being about once per month on review of notes taken by patient. No new meds at this time. Will continue to monitor. Follow up in May 2025 with hopes that patient has Nidra by then. At such time , if doing better, would start to slowly reduce dosages of Requip (given risk of augmentation) and then Lyrica to goal of lowest doses possible or even discontinuation of medication. Pt agrees with plan as above. Pt will get UDS with next labs. Renal function acceptable for Lyrica dosing. Jeffy Clark MD I spent a total of 32 minutes on the date of the service which included preparing to see the patient, [id number] patient care, completing clinical documentation, obtaining and/or reviewing separately obtained history, performing a medically appropriate examination, counseling and educating the patient/family/caregiver, ordering medications, tests, or procedures, and communicating results to the patient/family/caregiver. PDMP website checked and validated. All prescriptions have been APPROPRIATELY filled. No suspicious activity was identified. 03/13/2025 by Jeffy Clark MD documented in this encounter [facility] 02-28-2025 Evaluation note Diagnosis Onset Date Resolution Chest pain acute February 28, 2025 10:42am Essential hypertension acute Ju ly 2024 10:42am Non-rheumatic mitral regurgitation acute February 28, 2025 10:42am [facility] Work Phone: [phone]) 590-677606-30-2025 History of Present illness Narrative* Zenon Huston MD - 02/20/2025 2:15 PM EDT Images from the original note were not included. [facility] [place] [address] [facility] [address] [place] [address] Dept: [phone] Dept 02/20/2025 Chief Complaint Patient presents with Post-op Revision PIP arthroplasty right middle finger, Extensor tenolysis right middle finger DOS 01/06/25 SUBJECTIVE Chinyere is approximately 6 week(s) s/p Revision PIP arthroplasty right middle finger, Extensor tenolysis right middle finger DOS 01/06/25. She is no longer taking anything for pain. She denies complaints at this time. She is wearing her custom splint but has been removing it and working on ROM. OBJECTIVE Ht 5' 1 (1.549 m) Wt 106 lb (48.1 kg) BMI 20.03 kg/m Ortho Exam Focused Exam of the RIGHT Upper Extremity Skin is well-healed. Minimal global edema surrounding the PIP joint. AROM per clinical images below. NVID. IMAGING 3 views right hand demonstrate middle finger PIP implant appropriately positioned ASSESSMENT (S63.282D) Dislocation of proximal interphalangeal joint of right middle finger, subsequent encounter (S63.289A) Dislocation of finger PIP joint, initial encounter 1. Dislocation of proximal interphalangeal joint of right middle finger, subsequent encounter XR fingers 2+ views right, CANCELED: XR fingers 2+ views right 2. Dislocation of finger PIP joint, initial encounter XR fingers 2+ views right, CANCELED: XR fingers 2+ views right PLAN Chinyere is doing extremely well 6 weeks from surgery. She can wear her PIP splint only at night and start using and strengthening her right hand to her pain tolerance. I will see her back 1 more time in 6 weeks. Follow-up: Chinyere will followup with me in 6 weeks. She knows to call the office with any questionsor concerns in the interim. Future Imaging: RIGHT Long Finger 2V Zenon Huston MD Hand and Upper Extremity Surgery [facility] Department of Orthopaedics and Sports Medicine 02/20/2025 at 2:24 PM (Please note that portions of this note may have been completed with a voice recognition program. Efforts were made to edit the dictations but occasionally words are mis-transcribed.) documented in this [facility]06-26-2025 Telephone encounter Note* Telephone Encounter - Jennifer Broussard APRN.CNP - 02/16/2025 3:47 PM EDT The following approved medication requests have been transmitted electronically. Requested Prescriptions Pending Prescriptions Disp Refills losartan (COZAAR) 50 mg tablet 90 tablet 1 Sig: Take 1 tablet by mouth once daily. Jennifer Broussard APRN.CNP [facility]06-26-2025 Miscellaneous Notes* Telephone Encounter - Jennifer Broussard APRN.CNP - 02/16/2025 3:47 PM EDT The following approved medication requests have been transmitted electronically. Requested Prescriptions Pending Prescriptions Disp Refills losartan (COZAAR) 50 mg tablet 90 tablet 1 Sig: Take 1 tablet by mouth once daily. Jennifer Broussard APRN.CNP * Telephone Encounter - Almita Moe - 02/16/2025 11:42 AM EDT Patient calling again to request medication refill. Patient took her last dose yesterday. Please notify patient when refill has been sent so she may follow up with her pharmacy. * Telephone Encounter - Almita Moe - 02/14/2025 9:24 AM EDT PATIENT ONLY HAS 2 TABLETS REMAINING Prescription Refill Information The patient has been identified by name and date of : Yes Caregiver verified no other encounters exist for this prescription request: Yes Caregiver confirmed with patient/requestor that no other refills are due, in the near future, with this provider at this time: Yes The last office visit in the department: 10/21/24 Does the patient have a future office visit with this provider/department: Yes 05/17/25 Requested Prescriptions Pending Prescriptions Disp Refills losartan (COZAAR) 50 mg tablet 90 tablet 1 Sig: Take 1 tablet by mouth once daily. Almita Moe February 14, 2025 9:24 AM [facility] Note * Telephone Encounter - Almita Moe - 02/16/2025 11:42 AM EDT Patient calling again to request medication refill. Patient took her last dose yesterday. Please notify patient when refill has been sent so she may follow up with her pharmacy. [facility]06-24-2025 Telephone encounter Note* Telephone Encounter - Almita Moe - 02/14/2025 9:24 AM EDT PATIENT ONLY HAS 2 TABLETS REMAINING Prescription Refill Information The patient has been identified by name and date of : Yes Caregiver verified no other encounters exist for this prescription request: Yes Caregiver confirmed with patient/requestor that no other refills are due, in the near future, with this provider at this time: Yes The last office visit in the department: 10/21/24 Does the patient have a future office visit with this provider/department: Yes 05/17/25 Requested Prescriptions Pending Prescriptions Disp Refills losartan (COZAAR) 50 mg tablet 90 tablet 1 Sig: Take 1 tablet by mouth once daily. Almita Moe February 14, 2025 9:24 AM [facility]05-28-2025 History of Present illness Narrative* Carolina Anderson OT - 01/18/2025 2:30 PM EDT Pt in today for a splint adjustment. Provided pt with new Velcro and straps for finger gutter splint. Pt was satisfied with adjustment. documented in this [facility]05-28-2025 History of Present illness Narrative* Zenon Huston MD - 01/18/2025 2:00 PM EDT Images from the original note were not included. [facility] [address] [facility] [address] Dept: [phone] Dept 01/18/2025 Chief Complaint Patient presents with Post-op Revision PIP arthroplasty right middle finger, Extensor tenolysis right middle finger // DOS 01/06/25 SUBJECTIVE Chinyere is approximately 12 day(s) s/p Revision PIP arthroplasty right middle finger. She reports that since last visit her pain has had much improvement. She is no longer taking anything for pain. She denies significant complaints other than the expected amount of pain OBJECTIVE BP (!) 151/71 Ht 5' 1 (1.549 m) Wt 106 lb (48.1 kg) BMI 20.03 kg/m Ortho Exam Incision is well-healed. Swelling is improved. No redness or warmth. About a 20 degree baseline flexion contracture at the PIP joint and an associated 20 degree extensor lag at the DIP joint. Active flexion to nearly 60 degrees at the PIP joint. Excellent rotational and angular alignment. NVID. IMAGING NONE ASSESSMENT (S64.712X) Dislocation of proximal interphalangeal joint of right middle finger, subsequent encounter 1. Dislocation of proximal interphalangeal joint of right middle finger, subsequent encounter PLAN Chinyere is doing very well. She can work aggressive finger flexion but is to avoid extension beyond -20 degrees at the PIP joint. Will see her back in about 1 month with x-rays to reassess her motion. Immobilization: Split encouraged to be worn, except during exercises - FULL ROM of bending encouraged, avoidance of fully extending PIP joint Weight Bearing: Weight Bearing As Tolerated Rehabilitation: NO formal rehabilitation required at this point. Follow-up: Chinyere will followup with me in 1 weeks. She knows to call the office with any questionsor concerns in the interim. Future Imaging: RIGHT Long Finger 2V Zenon Huston MD Hand and Upper Extremity Surgery [facility] Department of Orthopaedics and Sports Medicine 01/18/2025 at 1:30 PM (Please note that portions of this note may have been completed with a voice recognition program. Efforts were made to edit the dictations but occasionally words are mis-transcribed.) documented in this [facility]05-21-2025 History of Present illness Narrative* Carolina Anderson, OT - 01/11/2025 11:15 AM EDT Images from the original note were not included. [facility] [address] [facility] [address] Dept: [phone] Dept OCCUPATIONAL THERAPY Orthotic Only Evaluation Patient Name: Chinyere Alberts : 1935 Date of Service: 01/11/2025 Referring Provider: Jose Martin Jean PA-C Diagnosis: Dislocation of proximal interphalangeal joint of right middle finger, subsequent encounter Visit Info / PMH Chinyere Alberts is a 89 y.o. female s/p 5 days revision of PIP arthroplasty of R middle finger, extensor tenolysis R middle finger; DOS: 01/06/25. General Visit Information History of Injury: Pt fell and injured R middle finger in october of 2023, underwent surgery on 02/12/24 for ORIF of R middle finger PIP joint silicone arthroplasty. The PIP arthroplasty failed with dorsal subluxation of the middle phalanx at the PIP joint. Revision surgery occurred on 01/06/25. Reason for Referral: custom PIP gutter splint for R middle finger. Treatment Guidelines: no formal therapy required at this point. Splint positioning as follows: DIP in full extension and PIP with 20 degrees of flexion. Occupation: does not currently work. Precautions/Red Flags: Pt is to be NWB in the R hand, no movement at the PIP/DIP joint, and instructed to only take splint off for hygiene purposes. Subjective Chief complaints: orthopedic restrictions and mild pain (2/10) Knowledge of HEP/splint wear/care: Pt verbalized/demonstrated understanding of splint wear and care; pt is not currently cleared for movement of PIP or DIP joint so no HEP was provided. Knowledge of condition/precautions/restrictions: Pt verbalized /demonstrated understanding of precautions and restrictions. Objective ROM: Not tested; no allowed per protocol to move PIP and DIP joint. Full motion at MP joint allowed. Pt has ROM WNL of other fingers, thumb, and wrist. Sensation: intact. Observation of skin/wound: sutures still intact; no evidence of infection. Treatment Therapeutic Activity # of Activities: 3 Therapeutic Activity 1: Discussion of precuations and protocols Activity 1 Comment: NWB, no PIP/DIP movement, full MP motion allowed Splinting Location: R middle finger Type: PIP gutter splint Splinting: Fabrication Splinting Education: Fitting, [place], Precautions, Donning, Wear schedule Splinting Comments: pt verbalized/demonstrated understanding of above splint education Assessment R hand dominant 89 yr old female s/p 5 days revision of PIP arthroplasty of R middle finger, extensor tenolysis R middle finger, presents to office today for fabrication of custom PIP gutter splint for R middle finger. Pt provided with custom fabricated splint; demonstrated/verbalized understandingof all splint education and precautions. Pt knows to call the office with any questions or concernsregarding her splint. Plan & Recommendations Pt does not requires formal therapy at this point. Plan: d/c till cleared for HEP and AROM Goals General/Ortho Patient will demonstrate independence with provided splint education for R middle finger PIP guttersplint. (Initiated) Start: 01/11/25 Completed: 01/11/25 Patient will adhere to prescribed precautions/restrictions for R hand to protect healing structures. (Initiated) Start: 01/11/25 Completed: 01/11/25 Time Entry Total Treatment Time Start Time: 1115 Stop Time: 1148 Time Calculation (min): 33 min OT Evaluation Time Entry OT Evaluation (Low) Time Entry: 8 OT Therapeutic Procedures Time Entry Therapeutic Activity Time Entry: 8 Application of Splint Time Entry: 17 Carolina Anderson OT documented in this [facility]05-21-2025 History of Present illness Narrative* Zenon Huston MD - 01/11/2025 10:15 AM EDT Images from the original note were not included. [facility] [address] [facility] [address] Dept: [phone] Dept 01/11/2025 Chief Complaint Patient presents with Post-op Revision PIP arthroplasty right middle finger, Extensor tenolysis right middle finger // DOS 01/06/25 SUBJECTIVE Chinyere is approximately 6 day(s) s/p Revision PIP arthroplasty right middle finger, Extensor tenolysis right middle finger // DOS 01/06/25. She reports that the pain is moderate. She is taking tylenolfor pain relief, which helps. She denies significant complaints other than the expected amount of pain. Is pleased with the overall alignment of her middle finger. Little to no pain. Has a, appointment with therapy later this morning. OBJECTIVE Ht 5' 1 (1.549 m) Wt 106 lb (48.1 kg) BMI 20.03 kg/m Ortho Exam Focused Exam of the RIGHT Upper Extremity Incision is healing nicely. Expected mild swelling. Excellent alignment at the PIP joint which is held in about 20 degrees of flexion. Able to achieve about 60 degrees of active flexion today. NVID. Clinical Photos Taken: IMAGING RIGHT Hand 3V well-positioned PIP implant without evidence of failure. Slight ulnar drift ASSESSMENT (S63.309D) Dislocation of proximal interphalangeal joint of right middle finger, subsequent encounter 1. Dislocation of proximal interphalangeal joint of right middle finger, subsequent encounter XR hand 3+ views right PLAN Chinyere is doing well and less than a week out from revision PIP arthroplasty with too much larger implant. Radiographically and clinically it appears well- positioned. I stressed the importance of avoiding hyperextension of the PIP joint to prevent undue stress of the implant. I would be perfectly happy if she rested in about 20 to 30 degrees of flexion at the PIP joint but was able to achieve near 90 of flexion. If she has any additional ulnar drift may consider taping to the index finger. She will follow-up next week for suture removal and to continue with the therapy per protocol. Immobilization: Custom OT splint: Continue with current use Weight Bearing: Non Weight Bearing Rehabilitation: NO formal rehabilitation required at this point. Follow-up: Chinyere will followup with me in 1 week. She knows to call the office with any questions or concerns in the interim. Future Imaging: NONE Zenon Huston MD Hand and Upper Extremity Surgery [employer] Department of Orthopaedics and Sports Medicine 01/11/2025 at 9:59 AM (Please note that portions of this note may have been completed with a voice recognition program. Efforts were made to edit the dictations but occasionally words are mis-transcribed.) documented in this [facility]05-16-2025 Miscellaneous Notes* Perioperative Nursing Note - Corin Daniel RN - 01/06/2025 12:40 PM EDT Patient ambulatory to/from BR with Rn assist, patient had slow but steady gait. Patient tolerated PO fluids and crackers. Pain is tolerable. Discharge instructions reviewed with both patient and , both verbalize understanding. Rn assisted patient with getting dressed. Assisted into wheelchair and out to car free of complaints. * Perioperative Nursing Note - Corin Daniel RN - 01/06/2025 11:55 AM EDT Patient reports feeling better and much more awake. Assisted to/from BR with slow , steady gait. Sitting upright on edge of bed, PO fluids and snacks provided. and call michelle remains bedside. * Perioperative Nursing Note - Corin Daniel RN - 01/06/2025 11:08 AM EDT Patient declines PO fluids/crackers. States she's to drowsy to sit up/eat yet. bedside. Denies pain. * Perioperative Nursing Note - Corin Daniel RN - 01/06/2025 10:35 AM EDT Received patient from OR to PACU with ZINC PLATE CUTTER. Patient is waking up from surgery on room air, no respiratory distress noted. Patient is awake and talking, c/o restless legs, denies surgical pain. Cardiac monitoring on, safety maintained. Rn remains bedside. * Op Note - Zenon Huston MD - 01/06/2025 9:18 AM EDT [facility] OR [address] [facility] [address] Dept: [phone] Loc: [phone] Operative Report Patient Name: Chinyere Alberts Date of : 1935 Date of Surgery: 01/06/25 Preoperative Diagnosis: Failed PIP arthroplasty right middle finger Extensor tendon adhesions right middle finger Postoperative Diagnosis: Same Procedure: Revision PIP arthroplasty right middle finger Extensor tenolysis right middle finger Surgeon: Zenon Huston MD 1st Assist: Mickey Billings MD 2nd Assist: Katrin Caraballo PA-C Implants: Blunt Size 2 silicone implant Specimens Removed: None Anesthesia: MAC Local Anesthesia: 1% lidocaine with epinephrine (1:100,000) for a total of 10ml into the subcutaneous tissues of the operative site(s) Tourniquet: Brachium Estimated Blood Loss: <5ml Pre Operative Antibiotics: Yes Indications: Ms. Chinyere Alberts is a 89 y.o. 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 She was treated with PIP arthroplasty and initially did extremely well but unfortunately developed a failed implant. She presents today for revision surgery. I have discussed with her, preoperatively, the complications, limitations, expectations, alternatives, and risks of surgical intervention which she has demonstrated understanding. No guarantees were given or implied. After having all of her questions answered to her satisfaction, Ms. Chinyere Alberts has provided written informed consent to proceed. Please see previous notes for full operative risk discussion. Procedure: Chinyere Alberts was identified in the preoperative waiting area. Her operative site was initialed and consent was reviewed. Final questions were answered. She was brought to the operating room and placed in the supine position. All bony prominences were well padded. The operative extremity was prepped and draped in the usual sterile fashion. A surgical timeout was then performedwith the patient's identification, the procedure to be performed being reviewed, verification that the patient had received preoperative antibiotics if indicated, and verification of the correct surgical site. The patient's ASA was verified by the nurse lead janitor and the anesthesia staff. Fire risk was assessed. An esmarch bandage was used to exsanguinate the limb and the tourniquet was inflatedto 250mm Hg. The previous longitudinal incision over the dorsum of the middle finger PIP joint was utilized. Full-thickness skin flaps were elevated from the extensor tendon. The previously repaired split in the extensor tendon was sharply divided and the location of the FiberWire sutures. The extensor was divided sharply down to the level of the periosteum of the proximal and middle phalanges. I carefully released extensor tendon adhesions both proximally and distally to ensure full extensor tendon excursion. The patient's PIP arthroplasty had failed at its hinge work fracture of the implant was noted. There was no evidence of infection. The implant was easily removed from the joint. The collateral liga ments were sharply divided. I used a small rongeur to shorten the proximal phalanx approximately 2 mm and then sequentially broached both the proximal and middle phalangeal canal to except a size 2 implant. The implant was trialed and found to have excellent fit and fill extending slightly radial/ulnar to the joint. I elected to use the slightly oversized size 2 implant because it had fit and fill. The wound was irrigated with Betadine impregnated saline and the final implant placed in appropriate position. With resting tension on the digit the implant maintain its position in both the coronal and sagittal planes. The finger was then taken throughout full range of motion with excellent stability noted both clinically and radiographically. The extensor tendon was then repaired with 3-0 FiberWire suture and the tourniquet deflated. Hemostasis was achieved bipolar cautery and gentle compression. Skin was then closed in layers followed by well-padded volar splint to the middle finger maintaining slight flexion at the PIP joint and terminal extension at the DIP. Ms. Chinyere Alberts was taken to the recovery room in stable condition. POST OPERATIVE PLAN IPO: fit with custom volar gutter splint to middle finger maintaining 20 degree flexion at PIPJ andfull extension at DIPJ. Allow immediate full MCP flexion/extension while maintaining splint position of PIP and DIPJ. 4wks: come of of splint to begin flexion of PIP and DIP joints unrestricted - both actively and passively. No extension of PIPJ beyond 20 deg of flexion. 6wks: allow full PIP extension and begin simple waldo taping middle to index or ring. Splint to be worn only at night 12wks: DC night splint use and waldo tape. WBAT Outpatient Follow-up XRays: Right Long Finger 2V Zenon Huston MD 01/06/2025 , 3:57 PM documented in this [facility]05-16-2025 Nurse Note* Perioperative Nursing Note - Corin Daniel RN - 01/06/2025 12:40 PM EDT Patient ambulatory to/from BR with Rn assist, patient had slow but steady gait. Patient tolerated PO fluids and crackers. Pain is tolerable. Discharge instructions reviewed with both patient and , both verbalize understanding. Rn assisted patient with getting dressed. Assisted into wheelchair and out to car free of complaints. [id number]* Perioperative Nursing Note - Corin Daniel RN - 01/06/2025 11:55 AM EDT Patient reports feeling better and much more awake. Assisted to/from BR with slow , steady gait. Sitting upright on edge of bed, PO fluids and snacks provided. and call imchelle remains bedside. [id number] Nurse Note* Perioperative Nursing Note - Corin Daniel RN - 01/06/2025 11:08 AM EDT Patient declines PO fluids/crackers. States she's to drowsy to sit up/eat yet. bedside. Denies pain. [id number] NotePatient: Chinyere Alberts Procedure Summary Date: 01/06/25 Room / Location: [address] Operating Room Anesthesia Start: 918 Anesthesia Stop: 1042 Procedure: REVISION RIGHT MIDDLE FINGER INTERPHALANGEAL ARTHROPLASTY (Right: Hand) Diagnosis: Pain in right hand Surgeons: Zenon Huston MD Responsible Provider: No Anesthesiologist - Michele/MD Femi Anesthesia Type: general ASA Status: 2 Anesthesia Type: general Vitals Value Taken Time BP 109/41 01/06/25 10:35 Temp 36.1 ?C (97 ?F) 01/06/25 10:35 Pulse 77 01/06/25 10:35 Resp 18 01/06/25 10:35 SpO2 98 % 01/06/25 10:35 Anesthesia Post Evaluation Patient location during evaluation: PACU Patient participation: complete - patient participated Level of consciousness: awake and alert Pain management: satisfactory to patient Airway patency: patent Dental Injury: no Cardiovascular status: acceptable, blood pressure returned to baseline and hemodynamically stable Respiratory status: acceptable and spontaneous ventilation Hydration status: euvolemic Nausea/Vomiting: controlled No notable events documented. Patient can be discharged once all PACU criteria has been met.[facility] [id number] NotePatient: Chinyere Alberts Procedure Summary Date: 01/06/25 Room / Location: [address] Operating Room Anesthesia Start: 918 Anesthesia Stop: 1042 Procedure: REVISION RIGHT MIDDLE FINGER INTERPHALANGEAL ARTHROPLASTY (Right: Hand) Diagnosis: Pain in right hand Surgeons: Zenon Huston MD Responsible Provider: No Anesthesiologist - Michele/MD Femi Anesthesia Type: general ASA Status: 2 Anesthesia Type: general Vitals Value Taken Time BP 109/41 01/06/25 10:35 Temp 36.1 ?C (97 ?F) 01/06/25 10:35 Pulse 77 01/06/25 10:35 Resp 18 01/06/25 10:35 SpO2 98 % 01/06/25 10:35 Anesthesia Post Evaluation Patient participation: complete - patient participated Level of consciousness: alert and awake Pain management: satisfactory to patient Multimodal analgesia pain management approach Airway patency: patent Two or more strategies used to mitigate risk of obstructive sleep apnea Respiratory status: acceptable Cardiovascular status: acceptable Hydration status: acceptable No notable events documented. MIPS #430 PONV Patient did not receive an inhalational anesthetic (XX430) MIPS # 424 Perioperative Temperature Management Anesthesia time was less than 60 minutes (4256F) MIPS #477 Multimodal Pain Management Not emergent case Patient was not administered multimodal pain management (G2149) Patient reports no pain in PACU (G2149) MIPS #404 Anesthesiology Smoking Abstinence The patient is not a current smoker (e.g. cigarette, cigar, pipe, e-cigarette/vaping/marijuana) If no stop here (XX404) I completed my handoff to the receiving clinician during which we: 1. Identified the patient 2. Identified the responsible provider 3. Reviewed the pertinent medical history 4. Discussed the surgical course 5. Reviewed intra-op anesthesia management and issues during anesthesia 6. Set expectations for post-procedure period 7. Allowed opportunity for questions and acknowledgement of understanding.[facility]05-16-2025 Nurse Note* Perioperative Nursing Note - Corin Daniel RN - 01/06/2025 10:35 AM EDT Received patient from OR to PACU with ZINC PLATE CUTTER. Patient is waking up from surgery on room air, no respiratory distress noted. Patient is awake and talking, c/o restless legs, denies surgical pain. Cardiac monitoring on, safety maintained. Rn remains bedside. [id number] NoteAirway Date/Time: 01/06/2025 9:23 AM Reason: scheduled Airway not difficult General Information and Staff Patient location during procedure: Procedural Resident/ZINC PLATE CUTTER: Brandon Bose APRN - ZINC PLATE CUTTER Performed: ZINC PLATE CUTTER Patient Condition Indications for airway management: anesthesia Patient position: sniffing Sedation level: Asleep Final Airway Details Preoxygenated: yes Final airway type: supraglottic airway Successful airway: Igel Size: 3 Number of attempts at approach: [address] [place], [place] [id number] Procedure note* Op Note - Zenon Huston MD - 01/06/2025 9:18 AM EDT [facility] MA[facility] OR [address] [place] [address] Dept: [phone] Loc: [phone] Operative Report Patient Name: Chinyere Alberts Date of : 1935 Date of Surgery: 01/06/25 Preoperative Diagnosis: Failed PIP arthroplasty right middle finger Extensor tendon adhesions right middle finger Postoperative Diagnosis: Same Procedure: Revision PIP arthroplasty right middle finger Extensor tenolysis right middle finger Surgeon: Zenon Huston MD 1st Assist: Mickey Billings MD 2nd Assist: Katrin Caraballo PA-C Implants: Blunt Size 2 silicone implant Specimens Removed: None Anesthesia: MAC Local Anesthesia: 1% lidocaine with epinephrine (1:100,000) for a total of 10ml into the subcutaneous tissues of the operative site(s) Tourniquet: Brachium Estimated Blood Loss: <5ml Pre Operative Antibiotics: Yes Indications: Ms. Chinyere Alberts is a 89 y.o. 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 She was treated with PIP arthroplasty and initially did extremely well but unfortunately developed a failed implant. She presents today for revision surgery. I have discussed with her, preoperatively, the complications, limitations, expectations, alternatives, and risks of surgical intervention which she has demonstrated understanding. No guarantees were given or implied. After having all of her questions answered to her satisfaction, Ms. Chinyere Alberts has provided written informed consent to proceed. Please see previous notes for full operative risk discussion. Procedure: Chinyere Alebrts was identified in the preoperative waiting area. Her operative site was initialed and consent was reviewed. Final questions were answered. She was brought to the operating room and placed in the supine position. All bony prominences were well padded. The operative extremity was prepped and draped in the usual sterile fashion. A surgical timeout was then performedwith the patient's identification, the procedure to be performed being reviewed, verification that the patient had received preoperative antibiotics if indicated, and verification of the correct surgical site. The patient's ASA was verified by the nurse lead janitor and the anesthesia staff. Fire risk was assessed. An esmarch bandage was used to exsanguinate the limb and the tourniquet was inflatedto 250mm Hg. The previous longitudinal incision over the dorsum of the middle finger PIP joint was utilized. Full-thickness skin flaps were elevated from the extensor tendon. The previously repaired split in the extensor tendon was sharply divided and the location of the FiberWire sutures. The extensor was divided sharply down to the level of the periosteum of the proximal and middle phalanges. I carefully released extensor tendon adhesions both proximally and distally to ensure full extensor tendon excursion. The patient's PIP arthroplasty had failed at its hinge work fracture of the implant was noted. There was no evidence of infection. The implant was easily removed from the joint. The collateral liga ments were sharply divided. I used a small rongeur to shorten the proximal phalanx approximately 2 mm and then sequentially broached both the proximal and middle phalangeal canal to except a size 2 implant. The implant was trialed and found to have excellent fit and fill extending slightly radial/ulnar to the joint. I elected to use the slightly oversized size 2 implant because it had fit and fill. The wound was irrigated with Betadine impregnated saline and the final implant placed in appropriate position. With resting tension on the digit the implant maintain its position in both the coronal and sagittal planes. The finger was then taken throughout full range of motion with excellent stability noted both clinically and radiographically. The extensor tendon was then repaired with 3-0 FiberWire suture and the tourniquet deflated. Hemostasis was achieved bipolar cautery and gentle compression. Skin was then closed in layers followed by well-padded volar splint to the middle finger maintaining slight flexion at the PIP joint and terminal extension at the DIP. Ms. Chinyere Alberts was taken to the recovery room in stable condition. POST OPERATIVE PLAN IPO: fit with custom volar gutter splint to middle finger maintaining 20 degree flexion at PIPJ andfull extension at DIPJ. Allow immediate full MCP flexion/extension while maintaining splint position of PIP and DIPJ. 4wks: come of of splint to begin flexion of PIP and DIP joints unrestricted - both actively and passively. No extension of PIPJ beyond 20 deg of flexion. 6wks: allow full PIP extension and begin simple waldo taping middle to index or ring. Splint to be worn only at night 12wks: DC night splint use and waldo tape. 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 Huston Allergies[1] Height: 154.9 cm (5' 1) Weight: 48.1 kg (106 lb) BMI (Calculated): 20.04 Pain in right hand [M79.641] Review of systems negative except for items below: Medical History[2] There are no active problems to display for this patient. Surgical History[3] Family History[4] Medications: Last TakenLast Updated acetaminophen (Tylenol Extra Strength) 500 MG tablet Past Month01/06/25 08 aspirin 81 MG chewable tablet 08 Calcium Citrate-Vitamin D 250-2.5 MG-MCG tablet 08 ipratropium (Atrovent) 0.03 % nasal spray 08 levothyroxine (Synthroid, Levoxyl) 50 MCG tablet 08 losartan (Cozaar) 50 MG tablet 0817 Melatonin 3 MG tablet dispersible Malrti36/19/24 1055 omeprazole (PriLOSEC) [address] capsule 08 polyethylene glycol, PEG, 3350 (Miralax) 17 g packet 08 pregabalin (Lyrica) 50 MG capsule 08 rOPINIRole (Requip) 0.5 MG tablet 08 simvastatin (Zocor) 40 MG tablet 0817 Turmeric (QC TUMERIC COMPLEX PO) 0817 Social history and Laboratory Data: No results found for: HGB, HCT, PLT, WBC, PROTIME, INR, APTT, NA, K, BUN, CREATININE, GLUCOSE Tobacco Use History[5] Social History Substance and Sexual Activity Alcohol Use Never Social History Substance and Sexual Activity Drug Use Never EKG results: None No results for input(s): GLUCOSE in the last 72 hours. PT is a female 89 y.o. BP (!) 173/71 Pulse 70 Temp 36.3 C (97.4 F) (Temporal) Resp 16 Ht 1.549 m (5' 1) Wt 48.1kg (106 lb) SpO2 97% BMI 20.03 kg/m Physical Examination: Constitutional: No apparent distress, well nourished, and in stable condition. Cardiac: Regular rate and rhythm Abdomen: Soft and nonacute Pulmonary: Clear bilaterally and no wheezing Neuro: Moves extremities X4 with no tremors HEENT: No gross cranial nerve defects and anicteric sclera Skin: Skin warm and dry with no visible rashes Vascular: Adequate perfusion of extremities with no cyanosis Psych: Alert and oriented x3 with appropriate affect Lymphatics: No swelling of arms/hands with no pedal edema Neck: FROM with no JVD Additional Notes:None After review of the medical history and physical assessment, medications, allergies, patient's current medical condition, and labs, this patient is at acceptable risk for the planned surgical procedure and anesthestic at this outpatient surgical facility. Electronically signed by: YOLY Ferrer CRNA, MD Date: 01/06/2025 at 8:57 AM [1] Allergies Allergen Reactions Genteal Tears Night-Time [Eye Lubricant] Red eye and painful, watery Mirtazapine Other Pt states she felt cloudy and awful Sulfa Antibiotics Hives and Rash [2] Past Medical History: Diagnosis Date Arthritis CKD (chronic kidney disease), stage III (HCC) Diabetes mellitus (HCC) diet controlled GERD (gastroesophageal reflux disease) High cholesterol Hypertension Hypothyroidism Restless leg syndrome [3] Past Surgical History: Procedure Laterality Date APPENDECTOMY BREAST BIOPSY Left benign CATARACT EXTRACTION Bilateral COLONOSCOPY HYSTERECTOMY KNEE ARTHROPLASTY Right OTHER SURGICAL HISTORY Right 02/12/2024 OPEN REDUCTION RIGHT MIDDLE FINGER PROXIMAL INTERPHALANGEAL JOINT - Right SALIVARY GLAND SURGERY Right SEPTOPLASTY [4] No family history on file. [5] Social History Tobacco Use Smoking Status Never Smokeless Tobacco Never [employer] [facility] Work Phone: 1(477) 238-786205-16-2025 [facility] at [facility] Comprehensive PreSurgical History and Physical Name: Chinyere Alberts : 1935 (Age-89 y.o.) Date of evaluation: 01/06/2025 Surgeon: Dr. Huston Allergies[1] Height: 154.9 cm (5' 1) Weight: 48.1 kg (106 lb) BMI (Calculated): 20.04 Pain in right hand [M79.641] Review of systems negative except for items below: Medical History[2] There are no active problems to display for this patient. Surgical History[3] Family History[4] Medications: Last TakenLast Updated acetaminophen (Tylenol Extra Strength) 500 MG tablet Past Month01/06/25 08 aspirin 81 MG chewable tablet 08 Calcium Citrate-Vitamin D 250-2.5 MG-MCG tablet 08 ipratropium (Atrovent) 0.03 % nasal spray 08 levothyroxine (Synthroid, Levoxyl) 50 MCG tablet 08 losartan (Cozaar) 50 MG tablet 0817 Melatonin 3 MG tablet dispersible [id number]/19/24 1055 omeprazole (PriLOSEC) [address] capsule 08 polyethylene glycol, PEG, 3350 (Miralax) 17 g packet 08 pregabalin (Lyrica) 50 MG capsule 08 rOPINIRole (Requip) 0.5 MG tablet 08 simvastatin (Zocor) 40 MG tablet 08 Turmeric (QC TUMERIC COMPLEX PO) 08 Social history and Laboratory Data: No results found for: HGB, HCT, PLT, WBC, PROTIME, INR, APTT, NA, K, BUN, CREATININE, GLUCOSE Tobacco Use History[5] Social History Substance and Sexual Activity Alcohol Use Never Social History Substance and Sexual Activity Drug Use Never EKG results: None No results for input(s): GLUCOSE in the last 72 hours. PT is a female 89 y.o. BP (!) 173/71 Pulse 70 Temp 36.3 ?C (97.4 ?F) (Temporal) Resp 16 Ht 1.549 m (5' 1) Wt 48.1 kg (106 lb) SpO2 97% BMI 20.03 kg/m? Physical Examination: Constitutional: No apparent distress, well nourished, and in stable condition. Cardiac: Regular rate and rhythm Abdomen: Soft and nonacute Pulmonary: Clear bilaterally and no wheezing Neuro: Moves extremities X4 with no tremors HEENT: No gross cranial nerve defects and anicteric sclera Skin: Skin warm and dry with no visible rashes Vascular: Adequate perfusion of extremities with no cyanosis Psych: Alert and oriented x3 with appropriate affect Lymphatics: No swelling of arms/hands with no pedal edema Neck: FROM with no JVD Additional Notes:None After review of the medical history and physical assessment, medications, allergies, patient's current medical condition, and labs, this patient is at acceptable risk for the planned surgical procedure and anesthestic at this outpatient surgical facility. Electronically signed by: YOLY Ferrer CRNA, MD Date: 01/06/2025 at 8:57 AM [1] Allergies Allergen Reactions Genteal Tears Night-Time [Eye Lubricant] Red eye and painful, watery Mirtazapine Other Pt states she felt cloudy and awful Sulfa Antibiotics Hives and Rash [2] Past Medical History: Diagnosis Date Arthritis CKD (chronic kidney disease), stage III (HCC) Diabetes mellitus (HCC) diet controlled GERD (gastroesophageal reflux disease) High cholesterol Hypertension Hypothyroidism Restless leg syndrome [3] Past Surgical History: Procedure Laterality Date APPENDECTOMY BREAST BIOPSY Left benign CATARACT EXTRACTION Bilateral COLONOSCOPY HYSTERECTOMY KNEE ARTHROPLASTY Right OTHER SURGICAL HISTORY Right 02/12/2024 OPEN REDUCTION RIGHT MIDDLE FINGER PROXIMAL INTERPHALANGEAL JOINT - Right SALIVARY GLAND SURGERY Right SEPTOPLASTY [4] No family history on file. [5] Social History Tobacco Use Smoking Status Never Smokeless Tobacco [facility]05-16-2025 History and physical note* YOLY Sheridan CRNA - 01/06/2025 8:57 AM EDT [facility] (Former[facility] at [facility] Comprehensive PreSurgical History and Physical Name: Chinyere Alberts : 1935 (Age-89 y.o.) Date of evaluation: 01/06/2025 Surgeon: Dr. Huston Allergies[1] Height: 154.9 cm (5' 1) Weight: 48.1 kg (106 lb) BMI (Calculated): 20.04 Pain in right hand [M79.641] Review of systems negative except for items below: Medical History[2] There are no active problems to display for this patient. Surgical History[3] Family History[4] Medications: Last TakenLast Updated acetaminophen (Tylenol Extra Strength) 500 MG tablet Past Month01/06/25 08 aspirin 81 MG chewable tablet 08 Calcium Citrate-Vitamin D 250-2.5 MG-MCG tablet 08 ipratropium (Atrovent) 0.03 % nasal spray 08 levothyroxine (Synthroid, Levoxyl) 50 MCG tablet 08 losartan (Cozaar) 50 MG tablet 0817 Melatonin 3 MG tablet dispersible Eghace20/19/24 1055 omeprazole (PriLOSEC) [address] capsule 08 polyethylene glycol, PEG, 3350 (Miralax) 17 g packet 08 pregabalin (Lyrica) 50 MG capsule 08 rOPINIRole (Requip) 0.5 MG tablet 0817 simvastatin (Zocor) 40 MG tablet 0817 Turmeric (QC TUMERIC COMPLEX PO) 08 Social history and Laboratory Data: No results found for: HGB, HCT, PLT, WBC, PROTIME, INR, APTT, NA, K, BUN, CREATININE, GLUCOSE Tobacco Use History[5] Social History Substance and Sexual Activity Alcohol Use Never Social History Substance and Sexual Activity Drug Use Never EKG results: None No results for input(s): GLUCOSE in the last 72 hours. PT is a female 89 y.o. BP (!) 173/71 Pulse 70 Temp 36.3 C (97.4 F) (Temporal) Resp 16 Ht 1.549 m (5' 1) Wt 48.1kg (106 lb) SpO2 97% BMI 20.03 kg/m Physical Examination: Constitutional: No apparent distress, well nourished, and in stable condition. Cardiac: Regular rate and rhythm Abdomen: Soft and nonacute Pulmonary: Clear bilaterally and no wheezing Neuro: Moves extremities X4 with no tremors HEENT: No gross cranial nerve defects and anicteric sclera Skin: Skin warm and dry with no visible rashes Vascular: Adequate perfusion of extremities with no cyanosis Psych: Alert and oriented x3 with appropriate affect Lymphatics: No swelling of arms/hands with no pedal edema Neck: FROM with no JVD Additional Notes:None After review of the medical history and physical assessment, medications, allergies, patient's current medical condition, and labs, this patient is at acceptable risk for the planned surgical procedure and anesthestic at this outpatient surgical facility. Electronically signed by: YOLY Ferrer CRNA, MD Date: 01/06/2025 at 8:57 AM [1] Allergies Allergen Reactions Genteal Tears Night-Time [Eye Lubricant] Red eye and painful, watery Mirtazapine Other Pt states she felt cloudy and awful Sulfa Antibiotics Hives and Rash [2] Past Medical History: Diagnosis Date Arthritis CKD (chronic kidney disease), stage III (HCC) Diabetes mellitus (HCC) diet controlled GERD (gastroesophageal reflux disease) High cholesterol Hypertension Hypothyroidism Restless leg syndrome [3] Past Surgical History: Procedure Laterality Date APPENDECTOMY BREAST BIOPSY Left benign CATARACT EXTRACTION Bilateral COLONOSCOPY HYSTERECTOMY KNEE ARTHROPLASTY Right OTHER SURGICAL HISTORY Right 02/12/2024 OPEN REDUCTION RIGHT MIDDLE FINGER PROXIMAL INTERPHALANGEAL JOINT - Right SALIVARY GLAND SURGERY Right SEPTOPLASTY [4] No family history on file. [5] Social History Tobacco Use Smoking Status Never Smokeless Tobacco Never * Katrin Caraballo PA-C - 01/06/2025 8:02 AM EDT [facility] Pre-Surgical History and Physical Name: Chinyere Alberts : 1935 (Age-89 y.o.) Date of Service: Pt seen/examined on 01/06/2025 Chief Complaint: 89 y.o. female who we are asked to see/evaluate Chinyere Alberts for pre- procedure evaluationprior to Procedure Information Date/Time: 01/06/25 1000 Procedure: REVISION RIGHT MIDDLE FINGER INTERPHALANGEAL ARTHROPLASTY (Right: Hand) - 60 minutes total Location: [address] Operating Room Surgeons: Zenon Huston MD History Of Present Illness: HPI: Pt here for Revision right middle finger PIP arthroplasty BP (!) 173/71 Pulse 70 Temp 36.3 C (97.4 F) (Temporal) Resp 16 Wt 48.1 kg (106 lb) SpO2 97% BMI 20.03 kg/m Medical History[1] There are no active problems to display for this patient. Surgical History[2] Family History[3] Medications: Prior to Admission medications Medication Sig Start Date End Date Taking? Authorizing Provider acetaminophen (Tylenol Extra Strength) 500 MG tablet Take by mouth every 8 hours as needed for mildpain (1-3). Historical Provider, aspirin 81 MG chewable tablet Chew. Historical Provider, Calcium Citrate-Vitamin D 250-2.5 MG-MCG tablet Take by mouth daily. Historical Provider, ipratropium (Atrovent) 0.03 % nasal spray Administer into affected nostril(s) 2 times daily as needed. 02/10/22 Historical Provider, levothyroxine (Synthroid, Levoxyl) 50 MCG tablet Take by mouth every morning (before breakfast). Historical Provider, losartan (Cozaar) 50 MG tablet Take by mouth every morning. 07/24/23 Historical Provider, Melatonin 3 MG tablet dispersible Take by mouth daily at bedtime. Historical Provider, omeprazole (PriLOSEC) [address] capsule Take 20 mg by mouth daily. Historical Provider, polyethylene glycol, PEG, 3350 (Miralax) 17 g packet Take by mouth daily. Historical Provider, pregabalin (Lyrica) 50 MG capsule TAKE 1 CAPSULE BY MOUTH THREE TIMES DAILY DIRECTED Historical Provider, rOPINIRole (Requip) 0.5 MG tablet Take by mouth 4 times daily. 02/20/23 Historical Provider, simvastatin (Zocor) 40 MG tablet Take by mouth Nightly. 07/24/23 Historical Provider, MD Cuadra (QC TUMERIC COMPLEX PO) Take 2 capsules by mouth daily. Historical Provider, Social history and Laboratory Data: Tobacco Use History[4] Social History Substance and Sexual Activity Alcohol Use Never Social History Substance and Sexual Activity Drug Use Never No results found for: WBC, HGB, HCT, MCV, PLT No results found for: NA, K, CL, CO2, BUN, CREATININE, GLUCOSE, CALCIUM, PROT, BILITOT, ALKPHOS, AST, ALT, LABGLOM, AGRATIO, GLOB Review of systems negative except for what is noted in HPI and medical history. See Anesthesia Pre-op on the Day of Surgery for the completed Physical Exam. ASSESSMENT/PLAN: 1) Revision right middle finger PIP arthroplasty Electronically signed by: Katrin Caraballo PA-C, Date: 01/06/2025 at 8:02 AM [1] Past Medical History: Diagnosis Date Arthritis Diabetes mellitus (HCC) diet controlled GERD (gastroesophageal reflux disease) High cholesterol Hypertension Hypothyroidism Restless leg syndrome [2] Past Surgical History: Procedure Laterality Date APPENDECTOMY BREAST BIOPSY Left benign CATARACT EXTRACTION Bilateral COLONOSCOPY HYSTERECTOMY KNEE ARTHROPLASTY Right OTHER SURGICAL HISTORY Right 02/12/2024 OPEN REDUCTION RIGHT MIDDLE FINGER PROXIMAL INTERPHALANGEAL JOINT - Right SALIVARY GLAND SURGERY Right SEPTOPLASTY [3] No family history on file. [4] Social History Tobacco Use Smoking Status Never Smokeless Tobacco Never Cosigned by Zenon Huston MD at 01/06/2025 5:33 PM EDT documented in this [facility]05-16-2025 NotePatient: Chinyere Caivaleriedu Procedure Information Date/Time: 01/06/25 1000 Procedure: REVISION RIGHT MIDDLE FINGER INTERPHALANGEAL ARTHROPLASTY (Right: Hand) - 60 minutes total Location: [address] Operating Room Surgeons: Zenon Huston MD Relevant Problems No relevant active problems Past Medical History: Past Medical History: No date: Arthritis No date: CKD (chronic kidney disease), stage III (HCC) No date: Diabetes mellitus (HCC) Comment: diet controlled No date: GERD (gastroesophageal reflux disease) No date: High cholesterol No date: Hypertension No date: Hypothyroidism No date: Restless leg syndrome Past Surgical History: Past Surgical History: No date: APPENDECTOMY No date: BREAST BIOPSY; Left Comment: benign No date: CATARACT EXTRACTION; Bilateral No date: COLONOSCOPY No date: HYSTERECTOMY No date: KNEE ARTHROPLASTY; Right 02/12/2024: OTHER SURGICAL HISTORY; Right Comment: OPEN REDUCTION RIGHT MIDDLE FINGER PROXIMAL INTERPHALANGEAL JOINT - Right No date: SALIVARY GLAND SURGERY; Right No date: SEPTOPLASTY Social History: TOBACCO: reports that she has never smoked. She has never used smokeless tobacco. ETOH: reports no history of alcohol use. Social History Substance and Sexual Activity Drug Use Never Family History: No family history on file. Screening: Hysterectomy Clinical information reviewed: Tobacco Allergies Meds Med Hx Surg Hx OB Status Fam Hx Soc Hx Physical Exam Airway Mallampati: IV TM distance: >3 FB Cardiovascular - normal exam Dental dentition normal Pulmonary - normal exam Abdominal - normal exam Anesthesia Plan patient is NPO appropriate Any family history or previous problems with anesthesia no ASA 2 general Any family history or previous problems with anesthesia no The patient is not a current smoker. Anesthetic plan and risks discussed with patient. NAHOMI Screening Labs: No results found for: WBC, HGB, HCT, MCV, PLT No results found for: NA, K, CL, CO2, BUN, CREATININE, GLUCOSE, CALCIUM, PROT, BILIRUBINFL, ALKPHOS, AST, ALT, EGFR, GLOB Pain Score: Scheduled No echocardiogram results found for the past 14 days No results found for this or any previous visit. Additional Equipment [facility]05-16-2025 Hospital Discharge instructions* Discharge Instructions* Katrin Caraballo PA-C - 01/06/2025 8:03 AM EDT Bandage: Keep operative splint/dressing on, clean, and dry until follow up appointment in 1-2 weeks. Swelling control: Elevate and Ice for pain control. Immobilization: Encourage range of motion of index finger, ring finger, little finger, thumb, and wrist in splint/dressing. Weightbearing: Non weight bearing in operative extremity. Nerve block for pain control: You received a local injection with lidocaine and epinephrine today. It is normal for your finger tip to look pale or white for up to 10 hours after surgery but if this persists past the 10 hours please call the office immediately. * Attachments The following attachments cannot be sent through Care Everywhere. * Moderate Sedation in Adults Discharge Instructions ([place]an) documented in this [facility]05-16-2025 History and physical note* Katrin Caraballo PA-C - 01/06/2025 8:02 AM EDT [facility] Pre-Surgical History and Physical Name: Chinyere Alberts : 1935 (Age-89 y.o.) Date of Service: Pt seen/examined on 01/06/2025 Chief Complaint: 89 y.o. female who we are asked to see/evaluate Chinyere Alberts for pre- procedure evaluationprior to Procedure Information Date/Time: 01/06/25 1000 Procedure: REVISION RIGHT MIDDLE FINGER INTERPHALANGEAL ARTHROPLASTY (Right: Hand) - 60 minutes total Location: [address] Operating Room Surgeons: Zenon Huston MD History Of Present Illness: HPI: Pt here for Revision right middle finger PIP arthroplasty BP (!) 173/71 Pulse 70 Temp 36.3 C (97.4 F) (Temporal) Resp 16 Wt 48.1 kg (106 lb) SpO2 97% BMI 20.03 kg/m Medical History[1] There are no active problems to display for this patient. Surgical History[2] Family History[3] Medications: Prior to Admission medications Medication Sig Start Date End Date Taking? Authorizing Provider acetaminophen (Tylenol Extra Strength) 500 MG tablet Take by mouth every 8 hours as needed for mildpain (1-3). Historical Provider, aspirin 81 MG chewable tablet Chew. Historical Provider, Calcium Citrate-Vitamin D 250-2.5 MG-MCG tablet Take by mouth daily. Historical Provider, ipratropium (Atrovent) 0.03 % nasal spray Administer into affected nostril(s) 2 times daily as needed. 02/10/22 Historical Provider, levothyroxine (Synthroid, Levoxyl) 50 MCG tablet Take by mouth every morning (before breakfast). Historical Provider, losartan (Cozaar) 50 MG tablet Take by mouth every morning. 07/24/23 Historical Provider, Melatonin 3 MG tablet dispersible Take by mouth daily at bedtime. Historical Provider, omeprazole (PriLOSEC) [address] capsule Take 20 mg by mouth daily. Historical Provider, polyethylene glycol, PEG, 3350 (Miralax) 17 g packet Take by mouth daily. Historical Provider, pregabalin (Lyrica) 50 MG capsule TAKE 1 CAPSULE BY MOUTH THREE TIMES DAILY DIRECTED Historical Provider, rOPINIRole (Requip) 0.5 MG tablet Take by mouth 4 times daily. 02/20/23 Historical Provider, simvastatin (Zocor) 40 MG tablet Take by mouth Nightly. 07/24/23 Historical Provider, Turmeric (QC TUMERIC COMPLEX PO) Take 2 capsules by mouth daily. Historical Provider, Social history and Laboratory Data: Tobacco Use History[4] Social History Substance and Sexual Activity Alcohol Use Never Social History Substance and Sexual Activity Drug Use Never No results found for: WBC, HGB, HCT, MCV, PLT No results found for: NA, K, CL, CO2, BUN, CREATININE, GLUCOSE, CALCIUM, PROT, BILITOT, ALKPHOS, AST, ALT, LABGLOM, AGRATIO, GLOB Review of systems negative except for what is noted in HPI and medical history. See Anesthesia Pre-op on the Day of Surgery for the completed Physical Exam. ASSESSMENT/PLAN: 1) Revision right middle finger PIP arthroplasty Electronically signed by: Katrin Caraballo PA-C, Date: 01/06/2025 at 8:02 AM [1] Past Medical History: Diagnosis Date Arthritis Diabetes mellitus (HCC) diet controlled GERD (gastroesophageal reflux disease) High cholesterol Hypertension Hypothyroidism Restless leg syndrome [2] Past Surgical History: Procedure Laterality Date APPENDECTOMY BREAST BIOPSY Left benign CATARACT EXTRACTION Bilateral COLONOSCOPY HYSTERECTOMY KNEE ARTHROPLASTY Right OTHER SURGICAL HISTORY Right 02/12/2024 OPEN REDUCTION RIGHT MIDDLE FINGER PROXIMAL INTERPHALANGEAL JOINT - Right SALIVARY GLAND SURGERY Right SEPTOPLASTY [3] No family history on file. [4] Social History Tobacco Use Smoking Status Never Smokeless Tobacco Never Cosigned by Zenon Huston MD at 01/06/2025 5:33 PM EDT [facility] [facility] Work Phone: [phone] 705-514105-16-2025 [facility] Pre-Surgical History and Physical Name: Chinyere Alberts : 1935 (Age-89 y.o.) Date of Service: Pt seen/examined on 01/06/2025 Chief Complaint: 89 y.o. female who we are asked to see/evaluate Chinyere Alberts for pre-procedure evaluation prior to Procedure Information Date/Time: 01/06/25 1000 Procedure: REVISION RIGHT MIDDLE FINGER INTERPHALANGEAL ARTHROPLASTY (Right: Hand) - 60 minutes total Location: [address] Operating Room Surgeons: Zenon Huston MD History Of Present Illness: HPI: Pt here for Revision right middle finger PIP arthroplasty BP (!) 173/71 Pulse 70 Temp 36.3 ?C (97.4 ?F) (Temporal) Resp 16 Wt 48.1 kg (106 lb) SpO2 97% BMI 20.03 kg/m? Medical History[1] There are no active problems to display for this patient. Surgical History[2] Family History[3] Medications: Prior to Admission medications Medication Sig Start Date End Date Taking? Authorizing Provider acetaminophen (Tylenol Extra Strength) 500 MG tablet Take by mouth every 8 hours as needed for mild pain (1-3). Historical Provider, aspirin 81 MG chewable tablet Chew. Historical Provider, Calcium Citrate-Vitamin D 250-2.5 MG-MCG tablet Take by mouth daily. Historical Provider, ipratropium (Atrovent) 0.03 % nasal spray Administer into affected nostril(s) 2 times daily as needed. 02/10/22 Historical Provider, levothyroxine (Synthroid, Levoxyl) 50 MCG tablet Take by mouth every morning (before breakfast). Historical Provider, losartan (Cozaar) 50 MG tablet Take by mouth every morning. 07/24/23 Historical Provider, Melatonin 3 MG tablet dispersible Take by mouth daily at bedtime. Historical Provider, omeprazole (PriLOSEC) [address] capsule Take 20 mg by mouth daily. Historical Provider, polyethylene glycol, PEG, 3350 (Miralax) 17 g packet Take by mouth daily. Historical Provider, pregabalin (Lyrica) 50 MG capsule TAKE 1 CAPSULE BY MOUTH THREE TIMES DAILY DIRECTED Historical Provider, rOPINIRole (Requip) 0.5 MG tablet Take by mouth 4 times daily. 02/20/23 Historical Provider, simvastatin (Zocor) 40 MG tablet Take by mouth Nightly. 07/24/23 Historical Provider, Turmeric (QC TUMERIC COMPLEX PO) Take 2 capsules by mouth daily. Historical Provider, Social history and Laboratory Data: Tobacco Use History[4] Social History Substance and Sexual Activity Alcohol Use Never Social History Substance and Sexual Activity Drug Use Never No results found for: WBC, HGB, HCT, MCV, PLT No results found for: NA, K, CL, CO2, BUN, CREATININE, GLUCOSE, CALCIUM, PROT, BILITOT, ALKPHOS, AST, ALT, LABGLOM, AGRATIO, GLOB Review of systems negative except for what is noted in HPI and medical history. See Anesthesia Pre-op on the Day of Surgery for the completed Physical Exam. ASSESSMENT/PLAN: 1) Revision right middle finger PIP arthroplasty Electronically signed by: Katrin Caraballo PA-C, Date: 01/06/2025 at 8:02 AM [1] Past Medical History: Diagnosis Date Arthritis Diabetes mellitus (HCC) diet controlled GERD (gastroesophageal reflux disease) High cholesterol Hypertension Hypothyroidism Restless leg syndrome [2] Past Surgical History: Procedure Laterality Date APPENDECTOMY BREAST BIOPSY Left benign CATARACT EXTRACTION Bilateral COLONOSCOPY HYSTERECTOMY KNEE ARTHROPLASTY Right OTHER SURGICAL HISTORY Right 02/12/2024 OPEN REDUCTION RIGHT MIDDLE FINGER PROXIMAL INTERPHALANGEAL JOINT - Right SALIVARY GLAND SURGERY Right SEPTOPLASTY [3] No family history on file. [4] Social History Tobacco Use Smoking Status Never Smokeless Tobacco [facility]04-07-2025 History of Present illness Narrative* Katrin Caraballo PA-C - 11/28/2024 1:15 PM EDT Images from the original note were not included. [facility] [place] [address] [place] [address] [address] [facility] [id number] Dept: [phone] Dept 11/28/2024 Chief Complaint Patient presents with Follow-up rt middle finger pain and edema HPI Chinyere returns today in follow-up regarding rt middle finger pain and edema . Last appointment was approximately 7 months ago. She is status post Open reduction right middle finger PIP joint with PIPjoint silicone arthroplasty 02/12/24. At her last appointment she was encouraged to continue full use without restrictions and therapy asneeded. The patient returns today with an increase in swelling and pain of her right middle finger PIP joint. This started last month. She does not recall a specific injury but does recall struggling to makeher bed due to her symptoms. She is also noticing difficulty extending her PIP joint. Symptom duration: less than 1 year. No results found for: HGBA1C OBJECTIVE Resp 13 Ht 5' 1 (1.549 m) Wt 102 lb (46.3 kg) BMI 19.27 kg/m Ortho Exam Focused Exam of the RIGHT Upper Extremity Skin: intact without any evidence of breakdown, well-healed dorsal incision over the middle finger PIP joint Edema: moderate edema surrounding the PIP joint of the middle finger Palpation: tender to palpation over the PIP joint of the middle finger along the radial dorsal aspect ROM: full functional ROM of the shoulder, elbow, wrist, and hand excluding the middle finger with limited extension of the PIP joint to -45 degrees, patient is able to flex fingertip to palm; subtle ulnar malalignment of the middle finger PIP Motor: Intact in the hand - able to fire AIN, PIN, and Ulnar nerves Sensation: intact to light touch in all fingers Perfusion: Brisk capillary refill in all 5 digits Examination of the contralateral upper extremity reveals skin to be warm, dry, and intact. There isno evidence of edema. She has full range of motion without apparent instabilities. There is no apparent tenderness to palpation. Excellent strength without deficit. Normal coordination and sensation throughout her upper extremity. Easily palpable radial pulse. IMAGING XRay: Right Hand 3V show interval PIP arthroplasty failure with dorsal subluxation of the middle phalanx at the PIP joint, silicone implant appears intact with the middle phalanx only NCT/EMG (Copied Impression) none PROCEDURE none ASSESSMENT (T67.571D) Dislocation of proximal interphalangeal joint of right middle finger, subsequent encounter (Z96.304) History of arthroplasty of finger 1. Dislocation of proximal interphalangeal joint of right middle finger, subsequent encounter XR hand 3+ views right 2. 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 She returns today with increased pain and swelling of her middle finger PIP joint and evidence of arthroplasty failure on repeat imaging. We discussed treatment options including benign neglect, revision arthroplasty, and arthrodesis. She would like to maintain as much mobility as possible and prefers to proceed with revision arthroplasty. She understands high risk of recurrent arthroplasty failure and generalized increase of post operative risks with revision surgery. We reviewed postoperative expectations and she is comfortable with the plan. The patient is consented for revision right middle finger PIP joint arthroplasty. I had an extensive discussion with Ms. Chinyere Alberts regarding the natural history, etiology, and nursing home consequences of her condition. We discussed both operative and non operative treatment options and Chinyere Alberts elected to proceed with surgical intervention. I have discussed with Ms. Chinyere Alberts the potential complications, limitations, expectations, alternatives, and risks of the proposed surgical procedure. Risks discussed include but are not limited to the risk of infection, iatrogenic injury to normal neurovascular structures, persistent pain and disability, unsightly scar, stiffness, complex regional pain syndrome, malunion, non union, hardware fail ure, need for hardware removal, loss of limb, myocardial infarction, deep vein thrombosis, pulmonary embolism and even . We also discussed the potential risk of COVID-19 exposure or infection and how it could alter her post operative recovery course. She has had full opportunity to ask her questions. I have answered them all to her satisfaction. I feel that Ms. Chinyere Alberts does understand our discussion today and she is comfortable providing informed consent for the procedure. Immobilization: NO immobilization required at this point - FULL ROM all joints encouraged Weight Bearing: Weight Bearing As Tolerated through right sided hand Rehabilitation: NO formal rehabilitation required at this point. Work Status: N/A Follow-up: Chinyere will followup with my physician early childhood teacher assistant BHARATH Armenta post operatively.She knows to call the office with any questions or concerns in the interim. Future Imaging: RIGHT Long Finger 2V Katrin Caraballo PA-C to Zenon Huston M.D. Hand & Upper Extremity Surgery (Please note that portions of this note may have been completed with a voice recognition program. Efforts were made to edit the dictations but occasionally words are mis-transcribed.) documented in this [facility]04-01-2025 Telephone encounter Note* Telephone Encounter - Ashwini Zheng - 11/22/2024 9:16 AM EDT Pt is scheduled 11/28 with Katrin. [id number] Miscellaneous Notes* Telephone Encounter - Ashwini Zheng - 11/22/2024 9:16 AM EDT Pt is scheduled 11/28 with Katrin. * Telephone Encounter - Marisabel Blank ATC - 11/21/2024 12:44 PM EDT Called patient and left a message stating we would need to her to come in for an appointment and ifshe cannot wait for an appointment please go to Urgent care. * Telephone Encounter - Amy Diaz - 11/21/2024 12:41 PM EDT Name of Caller: Chinyere Relationship to Patient: Self Symptoms/Concerns: Complaints of right middle finger pain with edema. Patient has surgery on it last January with Dr Huston for the right middle finger being dislocation. She is concerned with the amountof pain she has been experiencing chronically Provider: robel Practice Name: Ortho documented in this [place] [id number] Telephone encounter Note* Telephone Encounter - Mimi Elizondo APRN.CNP - 11/22/2024 9:05 AM EDT Rx signed Mimi Elizondo APRN.CNP [facility]04-01-2025 Miscellaneous Notes* Telephone Encounter - Mimi Elizondo APRN.CNP - 11/22/2024 9:05 AM EDT Rx signed Mimi Elizondo APRN.CNP * Telephone Encounter - Marisabel Aguillon LPN - 11/22/2024 9:03 AM EDT Prescription Refill Information The patient has been identified by name and date of : Yes Caregiver verified no other encounters exist for this prescription request: Yes Caregiver confirmed with patient/requestor that no other refills are due, in the near future, with this provider at this time: Yes The last office visit in the department: 09/08/24 RT Does the patient have a future office visit with this provider/department: Yes 03/17/25 [facility] Requested Prescriptions Pending Prescriptions Disp Refills rOPINIRole (REQUIP) 0.5 mg tablet 360 tablet 0 Sig: one tablet at noon and 4PM, 1 tablets at 8PM and 1 tablet at midnight. Marisabel Aguillon LPN November 22, 2024 9:03 AM [facility] Telephone encounter Note * Telephone Encounter - Marisabel Aguillon LPN - 11/22/2024 9:03 AM EDT Prescription Refill Information The patient has been identified by name and date of : Yes Caregiver verified no other encounters exist for this prescription request: Yes Caregiver confirmed with patient/requestor that no other refills are due, in the near future, with this provider at this time: Yes The last office visit in the department: 09/08/24 RT Does the patient have a future office visit with this provider/department: Yes 03/17/25 [facility] Requested Prescriptions Pending Prescriptions Disp Refills rOPINIRole (REQUIP) 0.5 mg tablet 360 tablet 0 Sig: one tablet at noon and 4PM, 1 tablets at 8PM and 1 tablet at midnight. Marisabel Aguillon LPN November 22, 2024 9:03 AM [facility]03-31-2025 Telephone encounter Note* Telephone Encounter - Marisabel Blank ATC - 11/21/2024 12:44 PM EDT Called patient and left a message stating we would need to her to come in for an appointment and ifshe cannot wait for an appointment please go to Urgent care. [id number] Telephone encounter Note* Telephone Encounter - Amy Diaz - 11/21/2024 12:41 PM EDT Name of Caller: Chinyere Relationship to Patient: Self Symptoms/Concerns: Complaints of right middle finger pain with edema. Patient has surgery on it last January with Dr Huston for the right middle finger being dislocation. She is concerned with the amountof pain she has been experiencing chronically Provider: robel [id number] Telephone encounter Note* Telephone Encounter - Elvia Mcrae LPN - 10/25/2024 2:31 PM EST Patient notified. [facility]03-04-2025 Miscellaneous Notes* Telephone Encounter - Elvia Mcrae LPN - 10/25/2024 2:31 PM EST Patient notified. * Telephone Encounter - Jeffy Fields MD - 10/25/2024 7:38 AM EST Labs stable, except white count is slightly down. Can be from something like a viral syndrome. Recheck cbc in two to four weeks. documented in this [facility]03-[facility]-2025 Telephone encounter Note * Telephone Encounter - Jeffy Fields MD - 10/25/2024 7:38 AM EST Labs stable, except white count is slightly down. Can be from something like a viral syndrome. Recheck cbc in two to four weeks. [facility]02-28-2025 NoteHNO ID: [id number] Author: JEFFY FIELDS MD Service: ? Author Type: Physician Type: Progress Notes Filed: 10/21/2024 11:29 Note Text: Patient presents with: 6 Month Exam HPI: Patient presents today for office visit for routine 6 month follow up. HLD: No myalgias. HTN: Monitors BP occ. Mentions one episode on 10/08/24 where her BP was 116/45. Refers to feeling strange that day. States she knew something was not right. No dizziness, chest pain or shortness of breath but different than she normally feels. Did not check it again that day. Eventually started to feel better. Refers to being able to think and move better throughout the day. Had sinus issues before that. I wonder if she might have had a viral illness. Red flags for re-assessment reviewed with patient in detail. Denies chest pain and shortness of breath. Denies headaches and dizziness. Denies palpitations and syncope. Denies edema. THYROID: No energy, hair or skin changes. Continues on Omeprazole Stable. Denies any bloody or black stool. No GI concerns. RLS:is better than it has been. Meds are working well. Still seeing Dr Harper, nephro and sleep med. MEDICATIONS: Current Outpatient Medications Medication Sig pregabalin (LYRICA) 50 mg capsule 1 capsule at noon, bedtime, and midnight rOPINIRole (REQUIP) 0.5 mg tablet one tablet at noon and 4PM, 1 tablets at 8PM and 1 tablet at midnight. levothyroxine (SYNTHROID) 50 mcg tablet Take 1 tablet by mouth once daily 6 out of 7 days per week. losartan (COZAAR) 50 mg tablet Take 1 tablet by mouth once daily. omeprazole (PRILOSEC) 20 mg capsule Take one tablet by mouth q day simvastatin (ZOCOR) 40 mg tablet Take 1 tablet by mouth daily at bedtime. polyethylene glycol 3350 (MIRALAX) 17 gram/dose powder Take 17 g by mouth once daily. Dissolve dose in 4 - 8 ounces of liquid and take as directed. TURMERIC ORAL Take 2 capsules by mouth once daily. calcium carbonate/vitamin D3 (CALCIUM WITH VITAMIN D ORAL) Take 1 tablet by mouth once daily. IPRATROPIUM BROMIDE NASAL Use 1 Leburn in the nose twice daily. hypromellose(GENTEAL MODERATE 0.3 % EYE DROPS) To left eye ASPIRIN 81 MG TAB Take one (1) tablet daily . No current facility-administered medications for this visit. ALLERGIES: ALLERGIES Allergen Reactions Asa [Salicylates] ringing in ears Flonase [Fluticason* Other: See Comments gets jittery Genteal Pm [White P* Itching Sulfa (Sulfonamide * Hives PAST MEDICAL HISTORY Diagnosis Date Anemia of chronic renal failure, stage 2 (mild) 05/19/2006 Arthritis left foot and right thumb Diabetes mellitus (HCC) Esophageal reflux Essential hypertension, benign Essential tremor GERD (gastroesophageal reflux disease) Heart murmur Hiatal hernia 08/25/2018 Other and unspecified hyperlipidemia Senile osteoporosis Unspecified hypothyroidism PAST SURGICAL HISTORY Procedure Laterality Date ADENOIDECTOMY PRIMARY Adenoidectomy APPENDECTOMY open COLONOSCOPY 11/28/2016 [place]- diverticulosis. COLONOSCOPY 10/15/2023 ESOPHAGOGASTRODUODENOSCOPY TRANSORAL DIAGNOSTIC 08/25/2018 EGD EYE SURGERY HX NEUROPLASTY AND/TRANSPOS MEDIAN NRV CARPAL TUNNE Carpal tunnel decomp- left PAST SURGICAL HISTORY OF salivary gland removed- chronic infection PAST SURGICAL HISTORY OF 06/03/2012 right trigger finger releases 1-4 PAST SURGICAL HISTORY OF 06/23/2014 left ring trigger finger release RHINP PRIM LATANDALAR CRTLGSAND/ELVTN NASAL TI Rhinoplasty RHYTIDECTOMY NECK W/PLATYSMAL TIGHTENING eye brow lift TONSILLECTOMY PRIMARY/SECONDARY Tonsillectomy TOTAL ABDOMINAL HYSTERECT W/WO RMVL TUBE OVARY Hysterectomy, DHIRAJ TOTAL KNEE REPLACEMENT 02/25/2023 FAMILY HISTORY Problem Relation Age of Onset Heart Mother massive HI, in her 70's other (Other) Father unknown Alzheimer's Disease Sister Cancer Maternal Grandmother GI CANCER Heart Maternal Aunt Diabetes Maternal Aunt Heart Maternal Uncle Colon Cancer No Family History Social History Tobacco Use Smoking status: Never Smokeless tobacco: Never Vaping Use Vaping status: Never Used Substance Use Topics Alcohol use: No Drug use: No Reviewed current medications, allergies, past medical history, surgical history, family history and social history today. REVIEW OF SYSTEMS All other reviewed and negative other than HPI. HEALTH MAINTENANCE: Reviewed health maintenance issues today and recommended the following in detail. Advance Directive Discussion due on 08/24/2024 VITALS: BP 138/58 Pulse (!) 58 Ht 154.9 cm (5' 1) Wt 49.9 kg (110 lb) SpO2 99% BMI 20.78 kg/m? Last 4 Encounter Wt Readings: Date: Wt: 09/08/2024 49.9 kg (110 lb) 06/28/2024 50 kg (110 lb 3.7 oz) 06/20/2024 49 kg (108 lb) 04/19/2024 49 kg (108 lb) PHYSICAL EXAMINATION: General appearance: Well appearing, alert, in no acute distress, well-hydrated, well nourished (more content not included)...[facility] 10-21-2024 History of Present illness Narrative* Jeffy Fields MD - 10/21/2024 11:02 AM EST Patient presents with: 6 Month Exam HPI: Patient presents today for office visit for routine 6 month follow up. HLD: No myalgias. HTN: Monitors BP occ. Mentions one episode on 10/08/24 where her BP was 116/45. Refers to feeling strange that day. States she knew something was not right. No dizziness, chest pain or shortness of breath but differentthan she normally feels. Did not check it again that day. Eventually started to feel better. Refers to being able to think and move better throughout the day. Had sinus issues before that. I wonder if she might have had a viral illness. Red flags for re-assessment reviewed with patient in detail. Denies chest pain and shortness of breath. Denies headaches and dizziness. Denies palpitations and syncope. Denies edema. THYROID: No energy, hair or skin changes. Continues on Omeprazole Stable. Denies any bloody or black stool. No GI concerns. RLS:is better than it has been. Meds are working well. Still seeing Dr Harper, nephernesto and sleep med. MEDICATIONS: Current Outpatient Medications Medication Sig pregabalin (LYRICA) 50 mg capsule 1 capsule at noon, bedtime, and midnight rOPINIRole (REQUIP) 0.5 mg tablet one tablet at noon and 4PM, 1 tablets at 8PM and 1 tablet at midnight. levothyroxine (SYNTHROID) 50 mcg tablet Take 1 tablet by mouth once daily 6 out of 7 days per week. losartan (COZAAR) 50 mg tablet Take 1 tablet by mouth once daily. omeprazole (PRILOSEC) 20 mg capsule Take one tablet by mouth q day simvastatin (ZOCOR) 40 mg tablet Take 1 tablet by mouth daily at bedtime. polyethylene glycol 3350 (MIRALAX) 17 gram/dose powder Take 17 g by mouth once daily. Dissolve dosein 4 - 8 ounces of liquid and take as directed. TURMERIC ORAL Take 2 capsules by mouth once daily. calcium carbonate/vitamin D3 (CALCIUM WITH VITAMIN D ORAL) Take 1 tablet by mouth once daily. IPRATROPIUM BROMIDE NASAL Use 1 Leburn in the nose twice daily. hypromellose(GENTEAL MODERATE 0.3 % EYE DROPS) To left eye ASPIRIN 81 MG TAB Take one (1) tablet daily . No current facility-administered medications for this visit. ALLERGIES: ALLERGIES Allergen Reactions Asa [Salicylates] ringing in ears Flonase [Fluticason* Other: See Comments gets jittery Genteal Pm [White P* Itching Sulfa (Sulfonamide * Hives PAST MEDICAL HISTORY Diagnosis Date Anemia of chronic renal failure, stage 2 (mild) 05/19/2006 Arthritis left foot and right thumb Diabetes mellitus (HCC) Esophageal reflux Essential hypertension, benign Essential tremor GERD (gastroesophageal reflux disease) Heart murmur Hiatal hernia 08/25/2018 Other and unspecified hyperlipidemia Senile osteoporosis Unspecified hypothyroidism PAST SURGICAL HISTORY Procedure Laterality Date ADENOIDECTOMY PRIMARY <AGE 14 Adenoidectomy APPENDECTOMY open COLONOSCOPY 11/28/2016 [place]- diverticulosis. COLONOSCOPY 10/15/2023 ESOPHAGOGASTRODUODENOSCOPY TRANSORAL DIAGNOSTIC 08/25/2018 EGD EYE SURGERY HX NEUROPLASTY &/TRANSPOS MEDIAN NRV CARPAL TUNNE Carpal tunnel decomp- left PAST SURGICAL HISTORY OF salivary gland removed- chronic infection PAST SURGICAL HISTORY OF 06/03/2012 right trigger finger releases 1-4 PAST SURGICAL HISTORY OF 06/23/2014 left ring trigger finger release RHINP PRIM LAT&ALAR CRTLGS&/ELVTN NASAL TI Rhinoplasty RHYTIDECTOMY NECK W/PLATYSMAL TIGHTENING eye brow lift TONSILLECTOMY PRIMARY/SECONDARY <AGE 14 Tonsillectomy TOTAL ABDOMINAL HYSTERECT W/WO RMVL TUBE OVARY Hysterectomy, DHIRAJ TOTAL KNEE REPLACEMENT 02/25/2023 FAMILY HISTORY Problem Relation Age of Onset Heart Mother massive HI, in her 70's other (Other) Father unknown Alzheimer's Disease Sister Cancer Maternal Grandmother GI CANCER Heart Maternal Aunt Diabetes Maternal Aunt Heart Maternal Uncle Colon Cancer No Family History Social History Tobacco Use Smoking status: Never Smokeless tobacco: Never Vaping Use Vaping status: Never Used Substance Use Topics Alcohol use: No Drug use: No Reviewed current medications, allergies, past medical history, surgical history, family history andsocial history today. REVIEW OF SYSTEMS All other reviewed and negative other than HPI. HEALTH MAINTENANCE: Reviewed health maintenance issues today and recommended the following in detail. Advance Directive Discussion due on 08/24/2024 VITALS: BP 138/58 Pulse (!) 58 Ht 154.9 cm (5' 1) Wt 49.9 kg (110 lb) SpO2 99% BMI 20.78 kg/m Last 4 Encounter Wt Readings: Date: Wt: 09/08/2024 49.9 kg (110 lb) 06/28/2024 50 kg (110 lb 3.7 oz) 06/20/2024 49 kg (108 lb) 04/19/2024 49 kg (108 lb) PHYSICAL EXAMINATION: General appearance: Well appearing, alert, in no acute distress, well-hydrated, well nourished. Skin: Skin color, texture, turgor normal, no suspicious rashes or lesions Head: Normocephalic, no masses, lesions, tenderness or abnormalities Lungs: Lungs clear to auscultation. No wheezing, rhonchi, rales Heart: RRR without murmur, gallop, or rubs. No ectopy Abdomen: Normal abdominal exam, Abdomen soft, non-tender. Bowel sounds normal. No masses, organomegaly Extremities: No deformities, edema, skin discoloration, clubbing or cyanosis. Good capillary refill. Musculoskeletal: No joint swelling, deformity, or tenderness ASSESSMENT/PLAN: 1. Restless legs syndrome - ICD9: 333.94, ICD10: G25.81 (primary diagnosis) Continue current medications. Notify us if any difficulties are noted. Follow with sleep med. 2. Essential hypertension, benign - ICD9: 401.1, ICD10: I10 - Controlled - Continue current medications - COMPLETE BLOOD COUNT AND DIFFERENTIAL - COMPREHENSIVE METABOLIC PANEL - LIPID PANEL BASIC 3. Mixed hyperlipidemia - ICD9: 272.2, ICD10: E78.2 - Controlled - Continue current medications - COMPLETE BLOOD COUNT AND DIFFERENTIAL - COMPREHENSIVE METABOLIC PANEL - LIPID PANEL BASIC 4. Hypothyroidism, unspecified type - ICD9: 244.9, ICD10: E03.9 Continue meds. - THYROID STIMULATING HORMONE 5. Chronic kidney disease, stage 3a (HCC) - ICD9: 585.3, ICD10: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 RELEVANT IMPLANT DATA REVIEWED: Yes PATIENT PRESENTS WITH AN IMPLANTABLE OR ATTACHED VEGETABLE SCULLION: No RADIOLOGY DEPARTMENT: General X-ray: Exam(s) Completed: Spine X-Ray(s): Lumbar AP / LAT / L5-S1 Pelvis X-Ray: Pelvis General AP PERIPHERAL IV DATA: Not applicable SIGNED BY: RT Kristal(Reyes) June 28, 2024 10:38 AM documented in [facility]24 NoteHNO ID: [id number] Author: SINAN INIGUEZ RT(R) Service: ? Author Type: Electron Gun Assembler Type: Progress Notes Filed: 06/28/2024 10:52 Note Text: Radiology Service Progress Note PATIENT NAME: Chinyere Alberts DATE OF SERVICE: June 28, 2024 TIME: 10:38 AM PATIENT IDENTITY VERIFICATION COMPLETED USING TWO (2) IDENTIFIERS: Name and Date of confirmed by patient verbally. FALL SCREENING: Has the patient had 2 falls in the last year or 1 fall with injury or currently using an Ambulatory Assistive Device (Walker, Cane, Wheelchair, Crutches, etc.)? No PATIENT GENDER DATA: Female. status: : No status: NO. PATIENT RELEVANT IMPLANT DATA REVIEWED: Yes PATIENT PRESENTS WITH AN IMPLANTABLE OR ATTACHED VEGETABLE SCULLION: No RADIOLOGY DEPARTMENT: General X-ray: Exam(s) Completed: Spine X-Ray(s): Lumbar AP / LAT / L5-S1 Pelvis X-Ray: Pelvis General AP PERIPHERAL IV DATA: Not applicable SIGNED BY: RT Kristal(Reyes) June 28, 2024 10:38 [facility]11-05-2024 NoteHNO ID: [id number] Author: FRANCOIS ROSARIO APRN.CIVIL ENGINEERING PROJECT DESIGNER Service: ? Author Type: Nurse Practitioner Type: Progress Notes Filed: 06/28/2024 11:32 Note Text: Subjective HPI Chinyere Alberts is a 89 year old female who presents with dysuria for the past week. She denies fever or chills, nausea or vomiting, or abdominal pain. She has had some low back pain but contributes that to a fall that happened on 06/24/2024. She was at home and slid down 3 [address]ed steps. She has had left sided lower back and pelvic pain since. She has taken tylenol at home for pain. No bruising present but she states left lower back seems slightly swollen. Review of Systems Constitutional: Negative for chills and fever. Respiratory: Negative. Cardiovascular: Negative. Gastrointestinal: Negative for abdominal pain, nausea and vomiting. Genitourinary: Positive for dysuria. Negative for frequency, hematuria and urgency. Musculoskeletal: Positive for back pain and falls. See HPI BP 142/72 Pulse 65 Temp 36.2 ?C (97.1 ?F) (Tympanic) Resp 18 Wt 50 kg (110 lb 3.7 oz) SpO2 100% BMI 20.83 kg/m? PAST MEDICAL HISTORY Diagnosis Date Anemia of chronic renal failure, stage 2 (mild) 05/19/2006 Arthritis left foot and right thumb Diabetes mellitus (HCC) Esophageal reflux Essential hypertension, benign Essential tremor GERD (gastroesophageal reflux disease) Heart murmur Hiatal hernia 08/25/2018 Other and unspecified hyperlipidemia Senile osteoporosis Unspecified hypothyroidism PAST SURGICAL HISTORY Procedure Laterality Date ADENOIDECTOMY PRIMARY Adenoidectomy APPENDECTOMY open COLONOSCOPY 11/28/2016 [facility]- diverticulosis. COLONOSCOPY 10/15/2023 ESOPHAGOGASTRODUODENOSCOPY TRANSORAL DIAGNOSTIC 08/25/2018 EGD EYE SURGERY HX NEUROPLASTY AND/TRANSPOS MEDIAN NRV CARPAL TUNNE Carpal tunnel decomp- left PAST SURGICAL HISTORY OF salivary gland removed- chronic infection PAST SURGICAL HISTORY OF 06/03/2012 right trigger finger releases 1-4 PAST SURGICAL HISTORY OF 06/23/2014 left ring trigger finger release RHINP PRIM LATANDALAR CRTLGSAND/ELVTN NASAL TI Rhinoplasty RHYTIDECTOMY NECK W/PLATYSMAL TIGHTENING eye brow lift TONSILLECTOMY PRIMARY/SECONDARY Tonsillectomy TOTAL ABDOMINAL HYSTERECT W/WO RMVL TUBE OVARY Hysterectomy, DHIRAJ TOTAL KNEE REPLACEMENT 02/25/2023 ALLERGIES Asa [Salicylates], Flonase [Fluticasone], Genteal Pm [White Petrolatum-Mineral Oil], and Sulfa (Sulfonamide Antibiotics) MEDICATIONS rOPINIRole (REQUIP) 0.5 mg tablet one tablet at noon and 4PM, 1 tablets at 8PM and 1 tablet at midnight. pregabalin (LYRICA) 50 mg capsule 1 cap at Noon, 2 at bedtime (~8PM) and 1 at midnight. levothyroxine (SYNTHROID) 50 mcg tablet Take 1 tablet by mouth once daily 6 out of 7 days per week. losartan (COZAAR) 50 mg tablet Take 1 tablet by mouth once daily. omeprazole (PRILOSEC) 20 mg capsule Take one tablet by mouth q day simvastatin (ZOCOR) 40 mg tablet Take 1 tablet by mouth daily at bedtime. polyethylene glycol 3350 (MIRALAX) 17 gram/dose powder Take 17 g by mouth once daily. Dissolve dose in 4 - 8 ounces of liquid and take as directed. TURMERIC ORAL Take 1 capsule by mouth once daily. calcium carbonate/vitamin D3 (CALCIUM WITH VITAMIN D ORAL) Take 1 tablet by mouth once daily. IPRATROPIUM BROMIDE NASAL Use 1 Leburn in the nose twice daily. hypromellose(GENTEAL MODERATE 0.3 % EYE DROPS) To left eye ASPIRIN 81 MG TAB Take one (1) tablet daily . FAMILY HISTORY Problem Relation Age of Onset Heart Mother massive HI, in her 70's other (Other) Father unknown Alzheimer's Disease Sister Cancer Maternal Grandmother GI CANCER Heart Maternal Aunt Diabetes Maternal Aunt Heart Maternal Uncle Colon Cancer No Family History Social History Tobacco Use Smoking status: Never Smokeless tobacco: Never Vaping Use Vaping status: Never Used Substance Use Topics Alcohol use: No Drug use: No Objective Physical Exam Vitals and nursing note reviewed. Constitutional: Appearance: Normal appearance. Cardiovascular: Rate and Rhythm: Normal rate and regular rhythm. Heart sounds: Normal heart sounds. Pulmonary: Effort: Pulmonary effort is normal. No respiratory distress. Breath sounds: Normal breath sounds. No wheezing or rales. Abdominal: General: There is no distension. Palpations: Abdomen is soft. There is no mass. Tenderness: There is no abdominal tenderness. There is no right CVA tenderness, left CVA tenderness or guarding. Musculoskeletal: General: Tenderness present. No swelling or deformity. Lumbar back: Tenderness present. No swelling, edema or deformity. Decreased range of motion. Back: Skin: General: Skin is warm and dry. Neurological: Mental Status: She is alert. Last labs for kidney function: Latest Ref Rng 03/23/2024 Protein, Total 6.3 - 8.0 g/dL 6.7 Albumin 3.9 - 4.9 g/dL 4.5 Ca (more content not included)...[facility]11-05-2024 History of Present illness Narrative* Francois Rosario APRN.CIVIL ENGINEERING PROJECT DESIGNER - 06/28/2024 10:11 AM EST Images from the original note were not included. Subjective HPI Chinyere Alberts is a 89 year old female who presents with dysuria for the past week. She denies fever or chills, nausea or vomiting, or abdominal pain. She has had some low back pain but contributes that to a fall that happened on 06/24/2024. She was at home and slid down [address]. She has had left sided lower back and pelvic pain since. She has taken tylenol at home for pain. No bruising present but she states left lower back seems slightly swollen. Review of Systems Constitutional: Negative for chills and fever. Respiratory: Negative. Cardiovascular: Negative. Gastrointestinal: Negative for abdominal pain, nausea and vomiting. Genitourinary: Positive for dysuria. Negative for frequency, hematuria and urgency. Musculoskeletal: Positive for back pain and falls. See HPI BP 142/72 Pulse 65 Temp 36.2 C (97.1 F) (Tympanic) Resp 18 Wt 50 kg (110 lb 3.7 oz) SpO2 100% BMI 20.83 kg/m PAST MEDICAL HISTORY Diagnosis Date Anemia of chronic renal failure, stage 2 (mild) 05/19/2006 Arthritis left foot and right thumb Diabetes mellitus (HCC) Esophageal reflux Essential hypertension, benign Essential tremor GERD (gastroesophageal reflux disease) Heart murmur Hiatal hernia 08/25/2018 Other and unspecified hyperlipidemia Senile osteoporosis Unspecified hypothyroidism PAST SURGICAL HISTORY Procedure Laterality Date ADENOIDECTOMY PRIMARY <AGE 14 Adenoidectomy APPENDECTOMY open COLONOSCOPY 11/28/2016 [facility]- diverticulosis. COLONOSCOPY 10/15/2023 ESOPHAGOGASTRODUODENOSCOPY TRANSORAL DIAGNOSTIC 08/25/2018 EGD EYE SURGERY HX NEUROPLASTY &/TRANSPOS MEDIAN NRV CARPAL TUNNE Carpal tunnel decomp- left PAST SURGICAL HISTORY OF salivary gland removed- chronic infection PAST SURGICAL HISTORY OF 06/03/2012 right trigger finger releases 1-4 PAST SURGICAL HISTORY OF 06/23/2014 left ring trigger finger release RHINP PRIM LAT&ALAR CRTLGS&/ELVTN NASAL TI Rhinoplasty RHYTIDECTOMY NECK W/PLATYSMAL TIGHTENING eye brow lift TONSILLECTOMY PRIMARY/SECONDARY <AGE 14 Tonsillectomy TOTAL ABDOMINAL HYSTERECT W/WO RMVL TUBE OVARY Hysterectomy, DHIRAJ TOTAL KNEE REPLACEMENT 02/25/2023 ALLERGIES Asa [Salicylates], Flonase [Fluticasone], Genteal Pm [White Petrolatum-Mineral Oil], and Sulfa (Sulfonamide Antibiotics) MEDICATIONS rOPINIRole (REQUIP) 0.5 mg tablet one tablet at noon and 4PM, 1 tablets at 8PM and 1 tablet at midnight. pregabalin (LYRICA) 50 mg capsule 1 cap at Noon, 2 at bedtime (~8PM) and 1 at midnight. levothyroxine (SYNTHROID) 50 mcg tablet Take 1 tablet by mouth once daily 6 out of 7 days per week. losartan (COZAAR) 50 mg tablet Take 1 tablet by mouth once daily. omeprazole (PRILOSEC) 20 mg capsule Take one tablet by mouth q day simvastatin (ZOCOR) 40 mg tablet Take 1 tablet by mouth daily at bedtime. polyethylene glycol 3350 (MIRALAX) 17 gram/dose powder Take 17 g by mouth once daily. Dissolve dosein 4 - 8 ounces of liquid and take as directed. TURMERIC ORAL Take 1 capsule by mouth once daily. calcium carbonate/vitamin D3 (CALCIUM WITH VITAMIN D ORAL) Take 1 tablet by mouth once daily. IPRATROPIUM BROMIDE NASAL Use 1 Leburn in the nose twice daily. hypromellose(GENTEAL MODERATE 0.3 % EYE DROPS) To left eye ASPIRIN 81 MG TAB Take one (1) tablet daily . FAMILY HISTORY Problem Relation Age of Onset Heart Mother massive HI, in her 70's other (Other) Father unknown Alzheimer's Disease Sister Cancer Maternal Grandmother GI CANCER Heart Maternal Aunt Diabetes Maternal Aunt Heart Maternal Uncle Colon Cancer No Family History Social History Tobacco Use Smoking status: Never Smokeless tobacco: Never Vaping Use Vaping status: Never Used Substance Use Topics Alcohol use: No Drug use: No Objective Physical Exam Vitals and nursing note reviewed. Constitutional: Appearance: Normal appearance. Cardiovascular: Rate and Rhythm: Normal rate and regular rhythm. Heart sounds: Normal heart sounds. Pulmonary: Effort: Pulmonary effort is normal. No respiratory distress. Breath sounds: Normal breath sounds. No wheezing or rales. Abdominal: General: There is no distension. Palpations: Abdomen is soft. There is no mass. Tenderness: There is no abdominal tenderness. There is no right CVA tenderness, left CVA tendernessor guarding. Musculoskeletal: General: Tenderness present. No swelling or deformity. Lumbar back: Tenderness present. No swelling, edema or deformity. Decreased range of motion. Back: Skin: General: Skin is warm and dry. Neurological: Mental Status: She is alert. Last labs for kidney function: Latest Ref Rng 03/23/2024 Protein, Total 6.3 - 8.0 g/dL 6.7 Albumin 3.9 - 4.9 g/dL 4.5 Calcium 8.5 - 10.2 mg/dL 10.0 Bilirubin, Total 0.2 - 1.3 mg/dL 0.3 Alkaline Phosphatase 34 - 123 U/L 76 AST 13 - 35 U/L 23 ALT 7 - 38 U/L 15 Glucose 74 - 99 mg/dL 85 BUN 7 - 21 mg/dL 23 (H) Creatinine 0.58 - 0.96 mg/dL 1.12 (H) Sodium 136 - 144 mmol/L 135 (L) Potassium 3.7 - 5.1 mmol/L 4.8 Chloride 98 - 107 mmol/L 99 CO2 22 - 30 mmol/L 23 Anion Gap 8 - 15 mmol/L 13 eGFR >=60 mL/min/1.73m 48 (L) Legend: (H) High (L) Low Creatinine clearance calculated at 28 mL/min (Cockcroft-Gault). ASSESSMENT/PLAN: 1. Burning with urination - ICD9: 788.1, ICD10: R30.0 (primary diagnosis) acute - UA positive for Office Visit on 06/28/2024 Component Date Value Ref Range Status GLUCOSE UA (POCT) 06/28/2024 Negative Negative mg/dL Final BILIRUBIN UA (POCT) 06/28/2024 Negative Negative Final KETONE UA (POCT) 06/28/2024 Negative Negative mg/dL Final SPECIFIC GRAVITY UA (POCT) 06/28/2024 1.010 1.005 - 1.030 Final HEMOGLOBIN/BLOOD UA (POCT) 06/28/2024 Moderate (A) Negative Final PH UA (POCT) 06/28/2024 6.5 4.5 - 8.0 Final PROTEIN UA (POCT) 06/28/2024 Negative Negative mg/dL Final UROBILINOGEN UA (POCT) 06/28/2024 0.2 Normal E.U./dL Final NITRITE UA (POCT) 06/28/2024 Negative Negative Final LEUKOCYTES UA (POCT) 06/28/2024 Small (A) Negative Final COLOR UA (POCT) 06/28/2024 Yellow Final CLARITY UA (POCT) 06/28/2024 Clear Final - UA DIP, URINE (POC) - URINE CULTURE - Cephalexin prescribed. 2. Acute midline low back pain without sciatica - ICD9: 724.2, ICD10: M54.50 - ice to painful areas 2-3 times daily - may take tylenol for pain. - XR LUMBAR GENERAL 3V AP/LAT/L5-S1 No acute fracture. Scoliosis of the lumbar spine with a leftward convexity. Minimal anterolisthesis of L4 on L5.. Mild intervertebral disc space narrowing at L3-4 and L4-5. Sacroiliac joint space narrowing. Vascular calcifications are noted. IMPRESSION: NO EVIDENCE OF FRACTURE Lance Crewmember: YAMIL Transcribe Date/Time: Jun 28 2024 11:06A Dictated by : IDALIA BOOGIE MD 3. Fall, initial encounter - ICD9: E888.9, ICD10: W19.XXXA - fall prevention information provided in after visit summary 4. Acute cystitis with hematuria - ICD9: 595.0, ICD10: N30.01 - URINE CULTURE - CEPHALEXIN 500 MG CAPSULE 5. Pelvic pain - ICD9: [id number], ICD10: R10.2 - take tylenol as needed for pain - ice pack to painful areas 2-3 times daily. - XR PELVIS 1V AP RESULT: No acute fracture or dislocation. Hip joint spaces are maintained. Vascular calcifications are noted. IMPRESSION: No acute osseous abnormality Lance Crewmember: [facility] Transcribe Date/Time: Jun 28 2024 11:08A Dictated by : IDALIA BOOGIE MD - Follow-up with your PCP in 3-5 days if symptoms have not improved or sooner if symptoms worsen - Discussed red flags and need for immediate medical evaluation if any occur. - Discussed supportive care treatment with fluids, rest and analgesia. - Discussed expected course of illness Francois Rosario APRN.CNP Medical Decision Making: Problems: Low: Acute, uncomplicated illness or injury Moderate: New problem with uncertain prognosis Data: Unique test result(s) reviewed: 3+ Unique test(s) ordered: 3+ Independent interpretation of test from other physician/QHCP Risk: Minimal: Minimal risk from testing/treatment Moderate: Drug management Medical Decision Making Level: 4 - Moderate [facility] Telephone encounter Note * Telephone Encounter - Marisa Cleveland MA - 06/27/2024 4:54 PM EST Pt was seen by Neuro and her regimen was changed. Routed message to Dr. Clark's office and updated pt it was sent to him. Marisa Cleveland MA [facility]11-[facility] Miscellaneous Notes* Telephone Encounter - Marisa Cleveland MA - 06/27/2024 4:54 PM EST Pt was seen by Neuro and her regimen was changed. Routed message to Dr. Clark's office and updated pt it was sent to him. Marisa Cleveland MA documented in this [facility]10-28-2024 Instructions* Patient Instructions* Jeffy Clark Jr., MD - 06/20/2024 10:51 AM EDT documented in this [facility]-28-[facility]24 NoteHNO ID: [id number] Author: JEFFY CLARK JR, MD Service: ? Author Type: Physician Type: Progress Notes Filed: 06/20/2024 10:51 Note Text: ESTABLISHED PATIENT VISIT CHIEF COMPLAINT: Follow Up HISTORY OF PRESENT ILLNESS: Chinyerecleve Alberts is a 89 year old female, with a PMH significant for and per last visit note of 12/14/23: Rls (restless legs syndrome) (primary encounter diagnosis) Dream enactment behavior Abnormal finding of blood chemistry, unspecified Vitamin d deficiency Chinyere Alberts is an 88 year old female with RLS and dream enactment behavior. At her last visit we discontinued the clonazepam she was taking for KIMBERLEE due to balance issues. She reports she no longer has balance problems. She did initially have a flare of RLS but that resolved. She did again have a flare of RLS a couple of weeks ago, had symptoms 2 nights in a row. PMH of HTN, HLD, GERD, CKD, arthritis, osteoporosis. PLAN: Continue ropinirole 0.5 mg at noon, 430 pm, 830 pm and MN for RLS Continue pregabalin 50 mg at noon, HS, and MN for RLS Check labs for iron stores and vit D Continue melatonin for KIMBERLEE, she is taking 1.5 mg at 830 pm and at MN. Hasn't had any KIMBERLEE, did have one episode of hollering in her sleep. Latest Ref Rng AND Units 12/14/2023 01/16/2022 06/03/2021 07/06/2020 05/18/2019 04/19/2019 10/18/2018 08/03/2018 Labs Iron 41 - 186 ug/dL 94 48 71 - 98 57 - - Ferritin 14.7 - 205.1 ng/mL 108.0 - 95.5 - 82.8 - - - TIBC 232 - 386 ug/dL 322 304 294 - 369 341 - - Vitamin D 25 Hydroxy 31.0 - 80.0 ng/mL 59.8 - - 38.0 - - 36.3 42.3 Pt states was doing well until last week. Not acting out dreams on current melatonin dosing. but legs are starting to jerk again. States about 2-3 hours after taking night time medicine (referring to the 830PM dose). Will take MN dose, and that will then control her through the night. Pt reports no new medications in the last couple weeks. States has been eating mor carbs of late. Pt worried blood sugars going up again. No side effects from medications. Pt really falls asleep about 10PM with pt reading in bed. No electronics. Pt upset as she typically wakes to start the day spontaneously at 530AM - states wakes and reads and prays at this hour. On later discussion, pt reports no longer taking melatonin and symptoms of dream enactment still controlled. Tremors unchanged. Pt not wanting further treatment. REVIEW OF SYSTEMS GENERAL:No weight loss, malaise or fevers. HEENT:Negative for frequent or significant headaches, No changes in hearing or vision, no nose bleeds or other nasal problems NECK:Negative for lumps, goiter, pain and significant neck swelling RESPIRATORY: Negative for cough, wheezing or shortness of breath. CARDIOVASCULAR: Negative for chest pain, leg swelling or palpitations. GASTROINTESTINAL: Negative for abdominal discomfort, blood in stools or black stools or change in bowel habits GENITOURINARY: No history of dysuria, frequency or incontinence MUSCULOSKELETAL: Negative for joint pain or swelling, back pain or muscle pain. NEUROLOGIC:Negative for focal numbness or weakness, headaches and dizziness or syncope, vision changes, speech/languag changes - EXCEPT that as per HPI above. SKIN:Negative for lesions, rash, and itching. LAB/IMAGING: Those performed since patient's last visit have been reviewed. WBC (k/uL) Date Value 03/23/2024 4.94 RBC (m/uL) Date Value 03/23/2024 4.69 Hemoglobin (g/dL) Date Value 03/23/2024 14.4 Hematocrit (%) Date Value 03/23/2024 43.4 MCV (fL) Date Value 03/23/2024 92.5 MCH (pg) Date Value 03/23/2024 30.7 MCHC (g/dL) Date Value 03/23/2024 33.2 RDW-CV (%) Date Value 03/23/2024 12.3 Platelet Count (k/uL) Date Value 03/23/2024 162 MPV (fL) Date Value 03/23/2024 11.0 Glucose (mg/dL) Date Value 03/23/2024 85 BUN (mg/dL) Date Value 03/23/2024 23 (H) Creatinine (mg/dL) Date Value 03/23/2024 1.12 (H) Sodium (mmol/L) Date Value 03/23/2024 135 (L) Potassium (mmol/L) Date Value 03/23/2024 4.8 Chloride (mmol/L) Date Value 03/23/2024 99 CO2 (mmol/L) Date Value 03/23/2024 23 Protein, Total (g/dL) Date Value 03/23/2024 6.7 Albumin (g/dL) Date Value 03/23/2024 4.5 Calcium, Total (mg/dL) Date Value 03/23/2024 10.0 Alkaline Phosphatase (U/L) Date Value 03/23/2024 76 Bilirubin, Total (mg/dL) Date Value 03/23/2024 0.3 AST (U/L) Date Value 03/23/2024 23 ALT (U/L) Date Value 03/23/2024 15 Hep C Antibody IA (no units) Date Value 05/01/2011 Negative MEDICATIONS: rOPINIRole (REQUIP) 0.5 mg tablet one tablet at noon and 4PM, 1 tablets at 8PM and 1 tablet at midnight. mirtazapine (REMERON) 7.5 mg tablet Take 1 tablet by mouth daily at bedtime. levothyroxine (SYNTHROID) 50 mcg tablet Take 1 tablet by mouth once daily 6 out of 7 days per week. losartan (COZAAR) 50 mg tablet Take 1 tablet by mouth once daily. (more content not included)...[facility] History of Present illness Narrative* Jeffy Clark Jr., MD - 06/20/2024 10:18 AM EDT ESTABLISHED PATIENT VISIT CHIEF COMPLAINT: Follow Up HISTORY OF PRESENT ILLNESS: Chinyere Alberts is a 89 year old female, with a PMH significant for and per last visit note of 12/14/23: Rls (restless legs syndrome) (primary encounter diagnosis) Dream enactment behavior Abnormal finding of blood chemistry, unspecified Vitamin d deficiency Chinyere Alberts is an 88 year old female with RLS and dream enactment behavior. At her last visit we discontinued the clonazepam she was taking for KIMBERLEE due to balance issues. She reports she no longer has balance problems. She did initially have a flare of RLS but that resolved. She did again have a flare of RLS a couple of weeks ago, had symptoms 2 nights in a row. PMH of HTN, HLD, GERD, CKD, arthritis, osteoporosis. PLAN: Continue ropinirole 0.5 mg at noon, 430 pm, 830 pm and MN for RLS Continue pregabalin 50 mg at noon, HS, and MN for RLS Check labs for iron stores and vit D Continue melatonin for KIMBERLEE, she is taking 1.5 mg at 830 pm and at MN. Hasn't had any KIMBERLEE, did have one episode of hollering in her sleep. Latest Ref Rng & Units 12/14/2023 01/16/2022 06/03/2021 07/06/2020 05/18/2019 04/19/2019 10/18/2018 08/03/2018 Labs Iron 41 - 186 ug/dL 94 48 71 - 98 57 - - Ferritin 14.7 - 205.1 ng/mL 108.0 - 95.5 - 82.8 - - - TIBC 232 - 386 ug/dL 322 304 294 - 369 341 - - Vitamin D 25 Hydroxy 31.0 - 80.0 ng/mL 59.8 - - 38.0 - - 36.3 42.3 Pt states was doing well until last week. Not acting out dreams on current melatonin dosing. but legs are starting to jerk again. States about 2-3 hours after taking night time medicine (referring tothe 830PM dose). Will take MN dose, and that will then control her through the night. Pt reports nonew medications in the last couple weeks. States has been eating mor carbs of late. Pt worried blood sugars going up again. No side effects from medications. Pt really falls asleep about 10PM with ptreading in bed. No electronics. Pt upset as she typically wakes to start the day spontaneously at 530AM - states wakes and reads and prays at this hour. On later discussion, pt reports no longer taking melatonin and symptoms of dream enactment still controlled. Tremors unchanged. Pt not wanting further treatment. REVIEW OF SYSTEMS GENERAL:No weight loss, malaise or fevers. HEENT:Negative for frequent or significant headaches, No changes in hearing or vision, no nose bleeds or other nasal problems NECK:Negative for lumps, goiter, pain and significant neck swelling RESPIRATORY: Negative for cough, wheezing or shortness of breath. CARDIOVASCULAR: Negative for chest pain, leg swelling or palpitations. GASTROINTESTINAL: Negative for abdominal discomfort, blood in stools or black stools or change in bowel habits GENITOURINARY: No history of dysuria, frequency or incontinence MUSCULOSKELETAL: Negative for joint pain or swelling, back pain or muscle pain. NEUROLOGIC:Negative for focal numbness or weakness, headaches and dizziness or syncope, vision changes, speech/languag changes - EXCEPT that as per HPI above. SKIN:Negative for lesions, rash, and itching. LAB/IMAGING: Those performed since patient's last visit have been reviewed. WBC (k/uL) Date Value 03/23/2024 4.94 RBC (m/uL) Date Value 03/23/2024 4.69 Hemoglobin (g/dL) Date Value 03/23/2024 14.4 Hematocrit (%) Date Value 03/23/2024 43.4 MCV (fL) Date Value 03/23/2024 92.5 MCH (pg) Date Value 03/23/2024 30.7 MCHC (g/dL) Date Value 03/23/2024 33.2 RDW-CV (%) Date Value 03/23/2024 12.3 Platelet Count (k/uL) Date Value 03/23/2024 162 MPV (fL) Date Value 03/23/2024 11.0 Glucose (mg/dL) Date Value 03/23/2024 85 BUN (mg/dL) Date Value 03/23/2024 23 (H) Creatinine (mg/dL) Date Value 03/23/2024 1.12 (H) Sodium (mmol/L) Date Value 03/23/2024 135 (L) Potassium (mmol/L) Date Value 03/23/2024 4.8 Chloride (mmol/L) Date Value 03/23/2024 99 CO2 (mmol/L) Date Value 03/23/2024 23 Protein, Total (g/dL) Date Value 03/23/2024 6.7 Albumin (g/dL) Date Value 03/23/2024 4.5 Calcium, Total (mg/dL) Date Value 03/23/2024 10.0 Alkaline Phosphatase (U/L) Date Value 03/23/2024 76 Bilirubin, Total (mg/dL) Date Value 03/23/2024 0.3 AST (U/L) Date Value 03/23/2024 23 ALT (U/L) Date Value 03/23/2024 15 Hep C Antibody IA (no units) Date Value 05/01/2011 Negative MEDICATIONS: rOPINIRole (REQUIP) 0.5 mg tablet one tablet at noon and 4PM, 1 tablets at 8PM and 1 tablet at midnight. mirtazapine (REMERON) 7.5 mg tablet Take 1 tablet by mouth daily at bedtime. levothyroxine (SYNTHROID) 50 mcg tablet Take 1 tablet by mouth once daily 6 out of 7 days per week. losartan (COZAAR) 50 mg tablet Take 1 tablet by mouth once daily. omeprazole (PRILOSEC) 20 mg capsule Take one tablet by mouth q day simvastatin (ZOCOR) 40 mg tablet Take 1 tablet by mouth daily at bedtime. pregabalin (LYRICA) 50 mg capsule Take 1 capsule by mouth three times a day for 90 days. polyethylene glycol 3350 (MIRALAX) 17 gram/dose powder Take 17 g by mouth once daily. Dissolve dosein 4 - 8 ounces of liquid and take as directed. TURMERIC ORAL Take 1 capsule by mouth once daily. calcium carbonate/vitamin D3 (CALCIUM WITH VITAMIN D ORAL) Take 1 tablet by mouth once daily. IPRATROPIUM BROMIDE NASAL Use 1 Leburn in the nose twice daily. hypromellose(GENTEAL MODERATE 0.3 % EYE DROPS) To left eye ASPIRIN 81 MG TAB Take one (1) tablet daily . HISTORIES PAST MEDICAL HISTORY Diagnosis Date Anemia of chronic renal failure, stage 2 (mild) 05/19/2006 Arthritis left foot and right thumb Diabetes mellitus (HCC) Esophageal reflux Essential hypertension, benign Essential tremor GERD (gastroesophageal reflux disease) Heart murmur Hiatal hernia 08/25/2018 Other and unspecified hyperlipidemia Senile osteoporosis Unspecified hypothyroidism FAMILY HISTORY Problem Relation Age of Onset Heart Mother massive HI, in her 70's other (Other) Father unknown Alzheimer's Disease Sister Cancer Maternal Grandmother GI CANCER Heart Maternal Aunt Diabetes Maternal Aunt Heart Maternal Uncle Colon Cancer No Family History SOCIAL HISTORY Social History Tobacco Use Smoking status: Never Smokeless tobacco: Never Vaping Use Vaping status: Never Used Substance Use Topics Alcohol use: No Drug use: No PHYSICAL EXAMINATION Blood pressure 163/71, pulse 80, weight 49 kg (108 lb), SpO2 100%. GENERAL EXAM: General appearance: NAD, pleasant. HEENT: NC/AT, nasal congestion absent, no oral lesions, membranes moist. NECK: ROM nml. Lungs: CTA bilaterally. No wheezes present. CV: RRR nl S1, S2 NEUROLOGICAL EXAM: General: Awake, alert, oriented x3 (person,place,time), fluent, no dysarthria; comprehension, naming, repetition intact. CN: PERRL, EOMI and without nystagmus, VFF to confrontation, facial sensation and strength are normal and symmetric, hearing is intact to finger rub bilaterally, palate and tongue movements are intact and symmetric. SCM and trapezius strength normal. Motor: Normal tone, bulk and strength (5/5) bilaterally (throughout extremities x4). Sensation: Light touch intact throughout. No evidence of neglect. Coord: Doc hand tremor high freq low amp in fingers and obvious with writing. Gait: Stable with normal stride and arm swing. Assessment and Plan: ASSESSMENT/PLAN: 1. RLS (restless legs syndrome) - ICD9: 333.94, ICD10: G25.81 (primary diagnosis) Some breakthrough symptoms as above between bedtime and MN - unclear if RLS or associated PLMs. No matter, suspect due to augmentation of nursing home use of Requip. However, pt not wanting to stop thismedication as feels it has been most impactful. Thus, will attempt to control symptoms by increasing Lyrica dose at the bedtime hour from 50mg to 100mg. Thus pt will be taking Lyrica 50mg at noon, 100mg at 8PM and 50mg at MN, along with 0.5mg of Requip at these same times. Pt made aware again of possible SE and ADRs. Explained need to monitor renal function. GFR stable at about 50 for some time now. As Lyrica renal cleared explained need to closely monitor for side effects with us increasing dose. Pt will follow up in 2-3 months or sooner prn. Refills provided. 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 3. Tremor - ICD9: 781.0, ICD10: R25.1 Stable. Pt not wanting additional workup or therapy. Note, likely essential nature. Jeffy Clark MD Medical Decision Making: Problems: Moderate: 1+ chronic illnesses with change and 2+ stable chronic illnesses Data: Unique test result(s) reviewed: 1 Risk: Moderate: Drug management Medical Decision Making Level: 4 - Moderate PDMP website checked and validated. All prescriptions have been APPROPRIATELY filled. No suspiciousactivity was identified. 06/20/2024 by Jeffy Clark MD * Reynaldo Borden LPN - 06/20/2024 10:17 AM EDT 06/14/2024 PROMIS Global Health Physical Health Summary Physical health: Good Everyday physical activity, ability: Completely Fatigue: Moderate Pain level: 4 General health: Good Social activities/roles, ability: Good Physical Health T-Score 44.9 (Good) Physical Health Percentile 31 PROMIS Global Health Mental Health Summary Quality of life: Good Mental health (mood,thinking): Good Social satisfaction: Good Emotional problems (anxious,depressed): Sometimes Mental Health T-Score 43.5 (Good) Mental Health Percentile 26 PHQ-9 Score: 4(Minimal Depression) PHQ-9 Self-Harm: Not at all Percentiles provide an indication of how a patient's score ranks in relation to the [place] general population. > 31st percentile is within normal limits or better *< 31st percentile is at least SD worse than population, which may be clinically relevant < 16th percentile is at least 1 SD worse than population and warrants attention documented in [facility]24 NoteHNO ID: [id number] Author: REYNALDO BORDEN LPN Service: ? Author Type: LICENSED NURSE Type: Progress Notes Filed: 06/20/2024 10:51 Note Text: 06/14/2024 PROMIS Global Health Physical Health Summary Physical health: Good Everyday physical activity, ability: Completely Fatigue: Moderate Pain level: 4 General health: Good Social activities/roles, ability: Good Physical Health T-Score 44.9 (Good) Physical Health Percentile 31 PROMIS Global Health Mental Health Summary Quality of life: Good Mental health (mood,thinking): Good Social satisfaction: Good Emotional problems (anxious,depressed): Sometimes Mental Health T-Score 43.5 (Good) Mental Health Percentile 26 PHQ-9 Score: 4(Minimal Depression) PHQ-9 Self-Harm: Not at all Percentiles provide an indication of how a patient's score ranks in relation to the [place] general population. > 31st percentile is within normal limits or better *< 31st percentile is at least ? SD worse than population, which may be clinically relevant < 16th percentile is at least 1 SD worse than population and warrants attentionGen[facility]10-18-2024 History of Present illness Narrative* Tete Lagunas RT(R) - 06/10/2024 2:30 PM EDT Radiology Service Progress Note PATIENT NAME: Chinyere Alberts DATE OF SERVICE: June 10, 2024 TIME: 2:36 PM PATIENT IDENTITY VERIFICATION COMPLETED USING TWO (2) IDENTIFIERS: Name and Date of confirmedby patient verbally. FALL SCREENING: Has the patient had 2 falls in the last year or 1 fall with injury or currently using an Ambulatory Assistive Device (Walker, Cane, Wheelchair, Crutches, etc.)? No PATIENT GENDER DATA: Female. status: status: NO. PATIENT RELEVANT IMPLANT DATA REVIEWED: Not Applicable PATIENT PRESENTS WITH AN IMPLANTABLE OR ATTACHED VEGETABLE SCULLION: No RADIOLOGY DEPARTMENT: Mammography PERIPHERAL IV DATA: Not applicable SIGNED BY: ALEJANDRO Wynne) June 10, 2024 2:36 PM documented in this encounter[facility]10-18-2024 NoteHNO ID: [id number] Author: TETE LAGUNAS RT(R) Service: ? Author Type: Technologist Type: Progress Notes Filed: 06/10/2024 14:36 Note Text: Radiology Service Progress Note PATIENT NAME: Chinyere Alberts DATE OF SERVICE: June 10, 2024 TIME: 2:36 PM PATIENT IDENTITY VERIFICATION COMPLETED USING TWO (2) IDENTIFIERS: Name and Date of confirmed by patient verbally. FALL SCREENING: Has the patient had 2 falls in the last year or 1 fall with injury or currently using an Ambulatory Assistive Device (Walker, Cane, Wheelchair, Crutches, etc.)? No PATIENT GENDER DATA: Female. status: status: NO. PATIENT RELEVANT IMPLANT DATA REVIEWED: Not Applicable PATIENT PRESENTS WITH AN IMPLANTABLE OR ATTACHED VEGETABLE SCULLION: No RADIOLOGY DEPARTMENT: Mammography PERIPHERAL IV DATA: Not applicable SIGNED BY: RT Sherrell(R) June 10, 2024 2:36 [facility]10-15-2024 Telephone encounter Note* Telephone Encounter - Yary Li LPN - 06/07/2024 10:52 AM EDT Patient calling she is overdue for her screening mamm was due end march. Patient has appt scheduled for Thursday and needs order. Pending order to file. Please advise [facility]10-15-2024 Miscellaneous Notes* Telephone Encounter - Yary Li LPN - 06/07/2024 10:52 AM EDT Patient calling she is overdue for her screening mamm was due end march. Patient has appt scheduled for Thursday and needs order. Pending order to file. Please advise documented in this encounterUpper [facility] Center10-15-2024 History of Present illness Narrative* Marisabel Andujar RDMS - 06/07/2024 9:00 AM EDT Radiology Service Progress Note PATIENT NAME: Chinyere Alberts DATE OF SERVICE: June 07, 2024 TIME: 11:52 AM PATIENT IDENTITY VERIFICATION COMPLETED USING TWO (2) IDENTIFIERS: Name and Date of confirmedby patient verbally. FALL SCREENING: Has the patient had 2 falls in the last year or 1 fall with injury or currently using an Ambulatory Assistive Device (Walker, Cane, Wheelchair, Crutches, etc.)? No PATIENT GENDER DATA: Female. status: : No status: NO. PATIENT RELEVANT IMPLANT DATA REVIEWED: Not Applicable PATIENT PRESENTS WITH AN IMPLANTABLE OR ATTACHED VEGETABLE SCULLION: No RADIOLOGY DEPARTMENT: Ultrasound PERIPHERAL IV DATA: Not applicable SIGNED BY: Marisabel Andujar RDMS RVOralia June 07, 2024 11:52 AM documented in this encounterUpper Valley [facility] Center10-15-2024 NoteHNO ID: [id number] Author: MARISABEL ANDUJAR RDMS Service: ? Author Type: Security Sales Manager Type: Progress Notes Filed: 06/07/2024 11:53 Note Text: Radiology Service Progress Note PATIENT NAME: Chinyere Alberts DATE OF SERVICE: June 07, 2024 TIME: 11:52 AM PATIENT IDENTITY VERIFICATION COMPLETED USING TWO (2) IDENTIFIERS: Name and Date of confirmed by patient verbally. FALL SCREENING: Has the patient had 2 falls in the last year or 1 fall with injury or currently using an Ambulatory Assistive Device (Walker, Cane, Wheelchair, Crutches, etc.)? No PATIENT GENDER DATA: Female. status: : No status: NO. PATIENT RELEVANT IMPLANT DATA REVIEWED: Not Applicable PATIENT PRESENTS WITH AN IMPLANTABLE OR ATTACHED VEGETABLE SCULLION: No RADIOLOGY DEPARTMENT: Ultrasound PERIPHERAL IV DATA: Not applicable SIGNED BY: Marisabel Andujar RDMS RVT June 07, 2024 11:52 [facility]09-27-2024 Telephone encounter Note* Telephone Encounter - Yissel Tellez APRN.CNP - 05/20/2024 5:01 PM EDTSummary: ropinirole refilled. The following approved medication requests have been transmitted electronically. Requested Prescriptions Signed Prescriptions Disp Refills rOPINIRole (REQUIP) 0.5 mg tablet 360 tablet 0 Sig: one tablet at noon and 4PM, 1 tablets at 8PM and 1 tablet at midnight. Authorizing Provider: YISSEL TELLEZ APRN.CNP [facility]09-27-2024 Miscellaneous Notes* Telephone Encounter - Yissel Tellez APRN.CNP - 05/20/2024 5:01 PM EDTSummary: ropinirole refilled. The following approved medication requests have been transmitted electronically. Requested Prescriptions Signed Prescriptions Disp Refills rOPINIRole (REQUIP) 0.5 mg tablet 360 tablet 0 Sig: one tablet at noon and 4PM, 1 tablets at 8PM and 1 tablet at midnight. Authorizing Provider: YISSEL TELLEZ APRN.CNP * Telephone Encounter - Deep Nolan - 05/20/2024 4:07 PM EDT Physician: Eduardo Call from patient requesting refill. Please E-Scribe Last office visit 12/14/23 with Dillan in person Next office visit 06/20/24 with Clark in person Requested Prescriptions Pending Prescriptions Disp Refills rOPINIRole (REQUIP) 0.5 mg tablet 360 tablet 0 Sig: one tablet at noon and 4PM, 1 tablets at 8PM and 1 tablet at midnight. Pharmacy Name: [facility] Deep Nolan documented in this encounterUpper Valley [facility] Center09-27-2024 Telephone encounter Note * Telephone Encounter - Deep Nolan - 05/20/2024 4:07 PM EDT Physician: Eduardo Call from patient requesting refill. Please E-Scribe Last office visit 12/14/23 with Dillan in person Next office visit 06/20/24 with Eduardo in person Requested Prescriptions Pending Prescriptions Disp Refills rOPINIRole (REQUIP) 0.5 mg tablet 360 tablet 0 Sig: one tablet at noon and 4PM, 1 tablets at 8PM and 1 tablet at midnight. Pharmacy Name: [facility] Deep Nolan [facility]08-28-2024 Telephone encounter Note* Telephone Encounter - Veronika Nguyen RN - 04/20/2024 1:25 PM EDT Patient returned call and given provider's message below and patient verbalized understanding. Pt does not prefer to be evaluated at this time. Stacie Nguyen RN [facility]08-28-2024 Miscellaneous Notes* Telephone Encounter - Veronika Nguyen RN - 04/20/2024 1:25 PM EDT Patient returned call and given provider's message below and patient verbalized understanding. Pt does not prefer to be evaluated at this time. Stacie Nguyen RN * Telephone Encounter - Jeffy Fields MD - 04/20/2024 12:20 PM EDT Ok to hold on meds. Can't really evaluate dizziness if it is brand new over the phone. Unless she saw Patti for this yesterday, it is a new issue and would require a new visit to evaluate it if it continues. * Telephone Encounter - Veronika Nguyen RN - 04/20/2024 10:38 AM EDT Triage Protocol Recommends: See PCP within 24 hours. Pt was seen by Patrice Broussard CNP yesterday and Dr. Fields on 03/23/24 and prefers not to come back in. Noappts made as of this time. Asking for Dr. Fields to advise her. She does not plan to take any more mirtazapine medication. Reason for Disposition [1] MODERATE dizziness (e.g., interferes with normal activities) AND [2] has NOT been evaluated by doctor (or BIOINFORMATICIST/PA) for this (Exception: Dizziness caused by heat exposure, sudden standing, or poor fluid intake.) Answer Assessment - Initial Assessment Questions Patient sent [employer] message to PCP this morning, as copied: This message is for Jennifer. forgot to take my RLS med at noon and had a bad night. took Mirtazapine at 12:10. head feels bad, balance is bad and at 5:30 felt like was going to pass out,light headed and dizzy. took my BP at 5:30 58/33 63 and at 6:30 151/62 56. -Chinyere Alberts Patient contacted fur further triage. Patient states she is improving since she sent the [employer] message. Reports Mirtazapine is new for her and she took her 1st dose at about 12:10am. At 5:30 am she felt lightheaded, dizzy and like she was going to pass out. BP was 58/33, pulse 63 at that time. At 6:30 am her BP was 151/62, pulse 56. Most recent BP and pulse at 10:45 am is 138/54, 71. Currently patient reports she is feeling better. Reports her head still feels cloudy and that herbalance is still not right , feels wobbly, but is better than it was. States I know it's from the new medication. Pt denies, chest pain, SOB, vision changes, weakness on one side of her body or confusion. Answering questions appropriately. No slurred speech noted. Pt denies any recent falls or loss of consciousness. Able to walk without support. Of record patient sees [facility] on 06/20/24. Pt is followed by [facility]. 1. DESCRIPTION: as above 2. LIGHTHEADED: yes, see above 3. VERTIGO: denies 4. SEVERITY: mild to moderate 5. ONSET: early this morning 6. AGGRAVATING FACTORS: standing, certain movements 7. HEART RATE: 71 8. CAUSE: Believes it is the mirtazapine 9. RECURRENT SYMPTOM: no 10. OTHER SYMPTOMS: Denies fever, chest pain, vomiting, diarrhea, bleeding. Protocols used: Dizziness - [id number] * Telephone Encounter - Lorraine Elliott RN - 04/20/2024 10:08 AM EDT Left vm asking patient to return call to a triage nurse. Stating doctor has questions regarding hermychart message, written today. Left phone number for patient to return call to. documented in this encounterUpper [facility] Center08-28-2024 Telephone encounter Note * Telephone Encounter - Jeffy Fields MD - 04/20/2024 12:20 PM EDT Ok to hold on meds. Can't really evaluate dizziness if it is brand new over the phone. Unless she saw Patti for this yesterday, it is a new issue and would require a new visit to evaluate it if it continues. [facility]08-28-2024 Telephone encounter Note* Telephone Encounter - Veronika Nguyen RN - 04/20/2024 10:38 AM EDT Triage Protocol Recommends: See PCP within 24 hours. Pt was seen by Patrice Broussard CNP yesterday and Dr. Fields on 03/23/24 and prefers not to come back in. Noappts made as of this time. Asking for Dr. Fields to advise her. She does not plan to take any more mirtazapine medication. Reason for Disposition [1] MODERATE dizziness (e.g., interferes with normal activities) AND [2] has NOT been evaluated by doctor (or BIOINFORMATICIST/PA) for this (Exception: Dizziness caused by heat exposure, sudden standing, or poor fluid intake.) Answer Assessment - Initial Assessment Questions Patient sent [employer] message to PCP this morning, as copied: This message is for Jennifer. forgot to take my RLS med at noon and had a bad night. took Mirtazapine at 12:10. head feels bad, balance is bad and at 5:30 felt like was going to pass out,light headed and dizzy. took my BP at 5:30 58/33 63 and at 6:30 151/62 56. -Chinyere Alberts Patient contacted fur further triage. Patient states she is improving since she sent the [employer] message. Reports Mirtazapine is new for her and she took her 1st dose at about 12:10am. At 5:30 am she felt lightheaded, dizzy and like she was going to pass out. BP was 58/33, pulse 63 at that time. At 6:30 am her BP was 151/62, pulse 56. Most recent BP and pulse at 10:45 am is 138/54, 71. Currently patient reports she is feeling better. Reports her head still feels cloudy and that herbalance is still not right , feels wobbly, but is better than it was. States I know it's from the new medication. Pt denies, chest pain, SOB, vision changes, weakness on one side of her body or confusion. Answering questions appropriately. No slurred speech noted. Pt denies any recent falls or loss of consciousness. Able to walk without support. Of record patient sees [facility] on 06/20/24. Pt is followed by [facility]. 1. DESCRIPTION: as above 2. LIGHTHEADED: yes, see above 3. VERTIGO: denies 4. SEVERITY: mild to moderate 5. ONSET: early this morning 6. AGGRAVATING FACTORS: standing, certain movements 7. HEART RATE: 71 8. CAUSE: Believes it is the mirtazapine 9. RECURRENT SYMPTOM: no 10. OTHER SYMPTOMS: Denies fever, chest pain, vomiting, diarrhea, bleeding. Protocols used: Dizziness - [id number] [facility]08-28-2024 Telephone encounter Note* Telephone Encounter - Lorraine Elliott RN - 04/20/2024 10:08 AM EDT Left vm asking patient to return call to a triage nurse. Stating doctor has questions regarding hermychart message, written today. Left phone number for patient to return call to. [facility]08-28-[facility] Telephone encounter Note* Telephone Encounter - Elvia Mcrae LPN - 04/20/2024 9:50 AM EDT Scheduled triage call. [facility]08-28-20[facility] Miscellaneous Notes* Telephone Encounter - Elvia Mcrae LPN - 04/20/2024 9:50 AM EDT Scheduled triage call. documented in this encounterUpper Valley Medical Center08-27-2024 Instructions* Patient Instructions* Jennifer Broussard APRN.CNP - 04/19/2024 10:17 AM EDT 1) Trial mirtazapine 7.5 mg for sleep- do not take after 2 am 2) Follow up in 6 months documented in this encounterUpper Valley Medical Center08-27-2024 NoteHNO ID: [id number] Author: JENNIFER BROUSSARD APRN.DENISE Service: ? Author Type: Clinical Nurse Specialist Type: Progress Notes Filed: 04/19/2024 10:19 Note Text: This is a 89 year old female who presents today with: Patient presents with: Hypertension: Follow up HISTORY OF PRESENT ILLNESS: Chinyere Alberts is a 89 year old female. Patient presents with: Hypertension: Follow up HTN: Patient is compliant with meds Yes Monitors bp at home: Yes. DBP mostly in 50's- 31-80 Denies side effects: No. Chest pain: No. Dyspnea: No. Edema: No. Palpitations: Occ. Syncope: No. Headache: Yes. Had one this morning. That is rare for her. Dizziness: No. Some insomnia troubles. When she gets up to bathroom, she can't go back to sleep. Melatonin didn't help her sleep but did make her groggy next day. Echo showed stage I diastolic dysfunction. Wide pulse pressure. 1 + aortic stenosis. PAST MEDICAL HISTORY: PAST MEDICAL HISTORY 05/19/2006: Anemia of chronic renal failure, stage 2 (mild) No date: Arthritis Comment: left foot and right thumb No date: Diabetes mellitus (HCC) No date: Esophageal reflux No date: Essential hypertension, benign No date: Essential tremor No date: GERD (gastroesophageal reflux disease) No date: Heart murmur 08/25/2018: Hiatal hernia No date: Other and unspecified hyperlipidemia No date: Senile osteoporosis No date: Unspecified hypothyroidism PAST SURGICAL HISTORY No date: ADENOIDECTOMY PRIMARY Comment: Adenoidectomy No date: APPENDECTOMY Comment: open 11/28/2016: COLONOSCOPY Comment: Peace- diverticulosis. 10/15/2023: COLONOSCOPY 08/25/2018: ESOPHAGOGASTRODUODENOSCOPY TRANSORAL DIAGNOSTIC Comment: EGD No date: EYE SURGERY HX No date: NEUROPLASTY AND/TRANSPOS MEDIAN NRV CARPAL TUNNE Comment: Carpal tunnel decomp- left No date: PAST SURGICAL HISTORY OF Comment: salivary gland removed- chronic infection 06/03/2012: PAST SURGICAL HISTORY OF Comment: right trigger finger releases 1-4 06/23/2014: PAST SURGICAL HISTORY OF Comment: left ring trigger finger release No date: RHINP PRIM LATANDALAR CRTLGSAND/ELVTN NASAL TI Comment: Rhinoplasty No date: RHYTIDECTOMY NECK W/PLATYSMAL TIGHTENING Comment: eye brow lift No date: TONSILLECTOMY PRIMARY/SECONDARY Comment: Tonsillectomy No date: TOTAL ABDOMINAL HYSTERECT W/WO RMVL TUBE OVARY Comment: Hysterectomy, DHIRAJ 02/25/2023: TOTAL KNEE REPLACEMENT ALLERGIES Asa [Salicylates], Flonase [Fluticasone], Genteal Pm [White Petrolatum-Mineral Oil], and Sulfa (Sulfonamide Antibiotics) MEDICATIONS Current Outpatient Medications Medication Sig pregabalin (LYRICA) 50 mg capsule Take 1 capsule by mouth three times a day for 90 days. rOPINIRole (REQUIP) 0.5 mg tablet one tablet at noon and 4PM, 1 tablets at 8PM and 1 tablet at midnight. losartan (COZAAR) 50 mg tablet Take 1 tablet by mouth once daily. levothyroxine (SYNTHROID) 50 mcg tablet Take 1 tablet by mouth once daily 6 out of 7 days per week. omeprazole (PRILOSEC) 20 mg capsule Take one tablet by mouth q day simvastatin (ZOCOR) 40 mg tablet Take 1 tablet by mouth daily at bedtime. polyethylene glycol 3350 (MIRALAX) 17 gram/dose powder Take 17 g by mouth once daily. Dissolve dose in 4 - 8 ounces of liquid and take as directed. TURMERIC ORAL Take 1 capsule by mouth once daily. calcium carbonate/vitamin D3 (CALCIUM WITH VITAMIN D ORAL) Take 1 tablet by mouth once daily. IPRATROPIUM BROMIDE NASAL Use 1 Leburn in the nose twice daily. hypromellose(GENTEAL MODERATE 0.3 % EYE DROPS) To left eye ASPIRIN 81 MG TAB Take one (1) tablet daily . melatonin 3 mg ODT Take by mouth daily at bedtime. No current facility-administered medications for this visit. FAMILY HISTORY Problem Relation Age of Onset Heart Mother massive HI, in her 70's other (Other) Father unknown Alzheimer's Disease Sister Cancer Maternal Grandmother GI CANCER Heart Maternal Aunt Diabetes Maternal Aunt Heart Maternal Uncle Colon Cancer No Family History Social History Tobacco Use Smoking status: Never Smokeless tobacco: Never Vaping Use Vaping status: Never Used Substance Use Topics Alcohol use: No Drug use: No EXAM: BP 151/65 Pulse 65 Wt 49 kg (108 lb) SpO2 99% BMI 20.41 kg/m? PHYSICAL EXAM: Physical Exam Vitals reviewed. Constitutional: Appearance: Normal appearance. HENT: Head: Normocephalic. Neck: Vascular: No carotid bruit. Cardiovascular: Rate and Rhythm: Normal rate and regular rhythm. Pulses: Normal pulses. Heart sounds: Murmur heard. No friction rub. No gallop. Comments: Soft PEACE @ sternal border Pulmonary: Effort: Pulmonary effort is normal. Breath sounds: Normal breath sounds. Abdominal: Palpations: Abdomen is soft. Musculoskeletal: General: Normal range of motion. Cervical back: Normal range of motion and neck supple. Comments: Walks w/o assisitive device Neurolo (more content not included)...[facility]08-27-2024 History of Present illness Narrative* Jennifer Broussard APRN.[facility] - 04/19/2024 9:59 AM EDT This is a 89 year old female who presents today with: Patient presents with: Hypertension: Follow up HISTORY OF PRESENT ILLNESS: Chinyere Alberts is a 89 year old female. Patient presents with: Hypertension: Follow up HTN: Patient is compliant with meds Yes Monitors bp at home: Yes. DBP mostly in 50's- 31-80 Denies side effects: No. Chest pain: No. Dyspnea: No. Edema: No. Palpitations: Occ. Syncope: No. Headache: Yes. Had one this morning. That is rare for her. Dizziness: No. Some insomnia troubles. When she gets up to bathroom, she can't go back to sleep. Melatonin didn't help her sleep but did make her groggy next day. Echo showed stage I diastolic dysfunction. Wide pulse pressure. 1 + aortic stenosis. PAST MEDICAL HISTORY: PAST MEDICAL HISTORY 05/19/2006: Anemia of chronic renal failure, stage 2 (mild) No date: Arthritis Comment: left foot and right thumb No date: Diabetes mellitus (HCC) No date: Esophageal reflux No date: Essential hypertension, benign No date: Essential tremor No date: GERD (gastroesophageal reflux disease) No date: Heart murmur 08/25/2018: Hiatal hernia No date: Other and unspecified hyperlipidemia No date: Senile osteoporosis No date: Unspecified hypothyroidism PAST SURGICAL HISTORY No date: ADENOIDECTOMY PRIMARY <AGE 12 Comment: Adenoidectomy No date: APPENDECTOMY Comment: open 11/28/2016: COLONOSCOPY Comment: Peace- diverticulosis. 10/15/2023: COLONOSCOPY 08/25/2018: ESOPHAGOGASTRODUODENOSCOPY TRANSORAL DIAGNOSTIC Comment: EGD No date: EYE SURGERY HX No date: NEUROPLASTY &/TRANSPOS MEDIAN NRV CARPAL TUNNE Comment: Carpal tunnel decomp- left No date: PAST SURGICAL HISTORY OF Comment: salivary gland removed- chronic infection 06/03/2012: PAST SURGICAL HISTORY OF Comment: right trigger finger releases 1-4 06/23/2014: PAST SURGICAL HISTORY OF Comment: left ring trigger finger release No date: RHINP PRIM LAT&ALAR CRTLGS&/ELVTN NASAL TI Comment: Rhinoplasty No date: RHYTIDECTOMY NECK W/PLATYSMAL TIGHTENING Comment: eye brow lift No date: TONSILLECTOMY PRIMARY/SECONDARY <AGE 14 Comment: Tonsillectomy No date: TOTAL ABDOMINAL HYSTERECT W/WO RMVL TUBE OVARY Comment: Hysterectomy, DHIRAJ 02/25/2023: TOTAL KNEE REPLACEMENT ALLERGIES Asa [Salicylates], Flonase [Fluticasone], Genteal Pm [White Petrolatum-Mineral Oil], and Sulfa (Sulfonamide Antibiotics) MEDICATIONS Current Outpatient Medications Medication Sig pregabalin (LYRICA) 50 mg capsule Take 1 capsule by mouth three times a day for 90 days. rOPINIRole (REQUIP) 0.5 mg tablet one tablet at noon and 4PM, 1 tablets at 8PM and 1 tablet at midnight. losartan (COZAAR) 50 mg tablet Take 1 tablet by mouth once daily. levothyroxine (SYNTHROID) 50 mcg tablet Take 1 tablet by mouth once daily 6 out of 7 days per week. omeprazole (PRILOSEC) 20 mg capsule Take one tablet by mouth q day simvastatin (ZOCOR) 40 mg tablet Take 1 tablet by mouth daily at bedtime. polyethylene glycol 3350 (MIRALAX) 17 gram/dose powder Take 17 g by mouth once daily. Dissolve dosein 4 - 8 ounces of liquid and take as directed. TURMERIC ORAL Take 1 capsule by mouth once daily. calcium carbonate/vitamin D3 (CALCIUM WITH VITAMIN D ORAL) Take 1 tablet by mouth once daily. IPRATROPIUM BROMIDE NASAL Use 1 Leburn in the nose twice daily. hypromellose(GENTEAL MODERATE 0.3 % EYE DROPS) To left eye ASPIRIN 81 MG TAB Take one (1) tablet daily . melatonin 3 mg ODT Take by mouth daily at bedtime. No current facility-administered medications for this visit. FAMILY HISTORY Problem Relation Age of Onset Heart Mother massive HI, in her 70's other (Other) Father unknown Alzheimer's Disease Sister Cancer Maternal Grandmother GI CANCER Heart Maternal Aunt Diabetes Maternal Aunt Heart Maternal Uncle Colon Cancer No Family History Social History Tobacco Use Smoking status: Never Smokeless tobacco: Never Vaping Use Vaping status: Never Used Substance Use Topics Alcohol use: No Drug use: No EXAM: BP 151/65 Pulse 65 Wt 49 kg (108 lb) SpO2 99% BMI 20.41 kg/m PHYSICAL EXAM: Physical Exam Vitals reviewed. Constitutional: Appearance: Normal appearance. HENT: Head: Normocephalic. Neck: Vascular: No carotid bruit. Cardiovascular: Rate and Rhythm: Normal rate and regular rhythm. Pulses: Normal pulses. Heart sounds: Murmur heard. No friction rub. No gallop. Comments: Soft PEACE @ sternal border Pulmonary: Effort: Pulmonary effort is normal. Breath sounds: Normal breath sounds. Abdominal: Palpations: Abdomen is soft. Musculoskeletal: General: Normal range of motion. Cervical back: Normal range of motion and neck supple. Comments: Walks w/o assisitive device Neurological: General: No focal deficit present. Mental Status: She is alert and oriented to person, place, and time. Psychiatric: Mood and Affect: Mood normal. Behavior: Behavior normal. LABS: reviewed recent labs ASSESSMENT/PLAN: 1. Chronic insomnia - ICD9: 780.52, ICD10: F51.04 (primary diagnosis) Melatonin not effective. Not sleeping 5 nights per week. - MIRTAZAPINE 7.5 MG TABLET 2. Essential hypertension, benign - ICD9: 401.1, ICD10: I10 - Controlled, wide pulse pressure, 1+ aortic stenosis - Recommend home blood pressure monitoring, to bring results to next visit - Encouraged sodium restriction, DASH or Mediterranean diet - Recommend regular aerobic exercise Discussed treatment plan and patient voices understanding. Patient's questions answered appropriately. Medications and potential side effects were discussed and patient voices understanding. Return to the office as scheduled or as needed for worsening/no improvement. Jennifer Broussard APRN.CIVIL ENGINEERING PROJECT DESIGNER documented in this encounterUpper [facility] Center08-19-2024 History of Present illness Narrative* Zenon Huston MD - 04/11/2024 10:45 AM EDT Images from the original note were not included. [facility] [address] [place] [id number] Dept: [phone] Dept 04/11/2024 Chief Complaint Patient presents with Post-op DOS 02/12/24 Open reduction right middle finger PIP joint with PIP joint silicone arthroplasty SUBJECTIVE Girard is approximately 8 week(s) s/p DOS 02/12/24 Open reduction right middle finger PIP joint withPIP joint silicone arthroplasty . She is no longer taking anything for pain. She denies significantcomplaints other than the expected amount of pain. Patient reports that she is going to occupational therapy twice a week at [facility]. OBJECTIVE BP 130/70 Ht 5' 1 (1.549 m) Wt 102 lb (46.3 kg) BMI 19.27 kg/m Ortho Exam Focused Exam of the RIGHT Upper Extremity Incision is well-healed. Resolving soft tissue swelling of the PIP joint of the middle finger. Slight ulnar angulation. Lacks 20 degrees of extension PIP joint with near full flexion. NVID. Clinical image(s): Stability: no evidence of joint instabilities Motor: Intact in the hand - able to fire AIN, PIN, and Ulnar nerves Sensation: normal in the median, ulnar, and radial nerve distributions Perfusion: Brisk capillary refill in all 5 digits IMAGING RIGHT Hand 3V well-positioned PIP joint arthroplasty middle finger ASSESSMENT No diagnosis found. No diagnosis found. PLAN Chinyere has done exceptionally well. She can use her hand without restrictions. Immobilization: NO immobilization required at this point - FULL ROM encouraged without resitrictions Weight Bearing: Weight Bearing As Tolerated Rehabilitation: continue with OT as needed . Follow-up: Chinyere will followup with me on an as needed basis. She knows to call the office with any questions or concerns in the interim. Future Imaging: NONE Zenon Huston MD Hand and Upper Extremity Surgery [employer] [employer] Department of Orthopaedics and Sports Medicine 04/11/2024 at 10:57 AM (Please note that portions of this note may have been completed with a voice recognition program. Efforts were made to edit the dictations but occasionally words are mis-transcribed.) documented in this [facility]08-06-2024 History of Present illness Narrative* Mark Murphy, OT - 03/29/2024 1:23 PM EDT Images from the original note were not included. [facility] [address] [facility] [id number] Discharge Notification Patient Name: Chinyere Alberts : 1935 Today's Date: 03/29/2024 Patient has not been seen since 02/23/2024. The patient will be discharged at this time due to inactivity. The patient has not been seen for outpatient therapy in 30+ days and has not made contact to reschedule. The patient will require new referral/evaluation to resume therapy in the future. The patient will be discharged at this time. Please refer to initial evaluation or re-assessment for last goals/objective measures assessment and progress report. Thank you for this referral. For any questions on this patient s course of therapy, please call theclinic for clarification. Mark Murphy OT documented in this [facility]08-06-2024 Telephone encounter Note* Telephone Encounter - Gricelda Cervantes OCCA - 03/29/2024 1:14 PM EDT Please see refill request dated 03/23, PA already approved and in scanned documents. Nothing furtherat this time. TAYA Blake [facility]08-06-2024 Miscellaneous Notes* Telephone Encounter - Gricelda Cervantes OCCA - 03/29/2024 1:14 PM EDT Please see refill request dated 03/23, PA already approved and in scanned documents. Nothing furtherat this time. TAYA Blake * Telephone Encounter - Deep Nolan - 03/29/2024 1:01 PM EDT Images from the original note were not included. HUGO Andujar PA has been received via Fax. Requested by: [employer] Callback #: [phone] Medication: Pregabalin Dosage: 50 mg May: [id number] [facility] Telephone encounter Note * Telephone Encounter - Deep Nolan - 03/29/2024 1:01 PM EDT Images from the original note were not included. FARIHAPARCATHRYN Andujar PA has been received via Fax. Requested by: [employer] Callback #: [phone] Medication: Pregabalin Dosage: 50 mg May: BATEQUY9 [facility]08-02-2024 Telephone encounter Note* Telephone Encounter - Marisabel Aguillon LPN - 03/25/2024 2:44 PM EDT Authorization for tamie Black. Auth valid until 03/25/2025. Marisabel Aguillon LPN [facility]08-02-2024 Miscellaneous Notes* Telephone Encounter - Marisabel Aguillon LPN - 03/25/2024 2:44 PM EDT Authorization for tamie Black. Auth valid until 03/25/2025. 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 Please advise. * Telephone Encounter - Mimi Elizondo APRN.CNP - 03/25/2024 8:23 AM EDT RF done PDMP website checked and validated. All prescriptions have been APPROPRIATELY filled. No suspiciousactivity was identified. 03/25/2024 by Mimi Elizondo APRN.DENISE * Telephone Encounter - Yissel Rojas RN - 03/24/2024 9:22 AM EDT Patient calls and states that she has only 2 capsules left which would give her enough for today. Please review and advise, Yissel Rojas RN * Telephone Encounter - Margaret Wyatt RN - 03/23/2024 12:58 PM EDT The patient has been identified by name and date of : Yes Caregiver verified no other encounters exist for this prescription request: Yes Caregiver confirmed with patient/requestor that no other refills are due, in the near future, with this provider at this time: Yes The last office visit in the department: 12/14/2023 Does the patient have a future office visit with this provider/department: Yes 06/20/2024 Requested Prescriptions Pending Prescriptions Disp Refills pregabalin (LYRICA) 50 mg capsule [Pharmacy Med Name: Pregabalin 50 MG Oral Capsule] 270 capsule 0 Sig: TAKE 1 CAPSULE BY MOUTH THREE TIMES DAILY DIRECTED Margaret Wyatt RN March 23, 2024 12:59 PM documented in this [facility] Telephone encounter Note * Telephone Encounter - Marisabel Hernandez - 03/25/2024 1:56 PM EDT Patient contacted the office stating she went to [facility] to flower picker her prescription of Pregabalin and the [facility] pharmacy is requesting a prior auth to be sent over for the prescription. Please advise. [facility]08-02-2024 Telephone encounter Note* Telephone Encounter - Mimi Elizondo APRN.CNP - 03/25/2024 8:24 AM EDT Filled in another note Mimi Eilzondo APRN.CNP [facility]08-02-2024 Miscellaneous Notes* Telephone Encounter - Mimi Elizondo APRN.CNP - 03/25/2024 8:24 AM EDT Filled in another note Mimi Elizondo APRN.CNP * Telephone Encounter - Magdalena Hector RN - 03/22/2024 10:44 AM EDT Routing to provider for review. * Telephone Encounter - Tete Smith - 03/21/2024 9:23 AM EDT Pharmacy verified in [facility] Patient has been identified by name and date of : Yes Patient aware RX will be sent to pharmacy. No need to notify patient. Patient phones for refill(s): Requested Prescriptions Pending Prescriptions Disp Refills pregabalin (LYRICA) 50 mg capsule 270 capsule 1 Sig: Take 1 capsule by mouth three times a day for 180 days. (As directed) Date of last office visit : 05/30/2015 Date of next office visit : Visit date not found Last 2 Encounter Wt Readings: Date: Wt: 01/17/2024 48.9 kg (107 lb 12.9 oz) 12/14/2023 48.5 kg (107 lb) Not applicable Please advise. Tete Smith documented in [facility] Telephone encounter Note * Telephone Encounter - Mimi Elizondo APRN.CNP - 03/25/2024 8:23 AM EDT RF done PDMP website checked and validated. All prescriptions have been APPROPRIATELY filled. No suspiciousactivity was identified. 03/25/2024 by Mimi Elizondo APRN.CNP [facility]08-01-2024 Telephone encounter Note* Telephone Encounter - Yissel Rojas RN - 03/24/2024 9:22 AM EDT Patient calls and states that she has only 2 capsules left which would give her enough for today. Please review and advise, Yissel Rojas RN [facility]07-31-2024 Telephone encounter Note* Telephone Encounter - Margaret Wyatt RN - 03/23/2024 12:58 PM EDT The patient has been identified by name and date of : Yes Caregiver verified no other encounters exist for this prescription request: Yes Caregiver confirmed with patient/requestor that no other refills are due, in the near future, with this provider at this time: Yes The last office visit in the department: 12/14/2023 Does the patient have a future office visit with this provider/department: Yes 06/20/2024 Requested Prescriptions Pending Prescriptions Disp Refills pregabalin (LYRICA) 50 mg capsule [Pharmacy Med Name: Pregabalin 50 MG Oral Capsule] 270 capsule 0 Sig: TAKE 1 CAPSULE BY MOUTH THREE TIMES DAILY DIRECTED Margaret Wyatt RN March 23, 2024 12:59 PM [facility]07-31-2024 History of Present illness Narrative* Sinan Iniguez RT(R) - 03/23/2024 11:40 AM EDT Radiology Service Progress Note PATIENT NAME: Chinyere Alberts DATE OF SERVICE: March 23, 2024 TIME: 11:36 AM PATIENT IDENTITY VERIFICATION COMPLETED USING TWO (2) IDENTIFIERS: Name and Date of confirmedby patient verbally. FALL SCREENING: Has the patient had 2 falls in the last year or 1 fall with injury or currently using an Ambulatory Assistive Device (Walker, Cane, Wheelchair, Crutches, etc.)? No PATIENT GENDER DATA: Female. status: : No status: NO. PATIENT RELEVANT IMPLANT DATA REVIEWED: Yes PATIENT PRESENTS WITH AN IMPLANTABLE OR ATTACHED VEGETABLE SCULLION: No RADIOLOGY DEPARTMENT: General X-ray: Exam(s) Completed: Chest X-Ray PERIPHERAL IV DATA: Not applicable SIGNED BY: RT Kristal(R) March 23, 2024 11:36 AM documented in this [facility] History of Present illness Narrative* Jeffy Fields MD - 03/23/2024 10:07 AM EDT Patient presents with: 6 Month Exam HPI: Patient presents today for office visit for follow up. HTN: Monitors BP at home. States she's had a lot of systolic readings of 140's-150's. One episode where she felt funny and BP was 97/52. Thinks Melatonin could be affecting her BP. Some dizziness when this happened. One episode where she woke with a severe pain on the top of her head on left side. Has had some like this before. Not the worst she has had. Has had CT scans in the past for same. Refers to It's not a headache it's a pain in my head. No new neuro issues. Is ok currently. Red flags for re-assessment reviewed with patient in detail. Saw cardiology recently. Following with [facility] She has had some intermittent chest discomfort. Lasted just a few minutes. Non exertional, usually when resting. Not pleuritic. Can be tender to palpitation. Scheduled for Echo on 03/25/24 Denies shortness of breath Denies syncopal events. Denies edema. Takes Melatonin every night. She can't say one way or another if this even helps with her sleep. We discussed stopping it. Taking Ropinirole for RLS. Has an occasional bad night with breakthrough restlessness but states works for the most part. Still seeing sleep medicine. Mentions frequent leg spasms/muscle cramping. She decreased water intake to 7 glasses a day. HLD: No myalgias GERD: Symptoms controlled Follows with nephrology, Dr Harper. No polyuria or polydipsia. MEDICATIONS: Current Outpatient Medications Medication Sig rOPINIRole (REQUIP) 0.5 mg tablet one tablet at noon and 4PM, 1 tablets at 8PM and 1 tablet at midnight. losartan (COZAAR) 50 mg tablet Take 1 tablet by mouth once daily. melatonin 3 mg ODT Take by mouth daily at bedtime. pregabalin (LYRICA) 50 mg capsule Take 1 capsule by mouth three times a day for 180 days. (As directed) levothyroxine (SYNTHROID) 50 mcg tablet Take 1 tablet by mouth once daily 6 out of 7 days per week. omeprazole (PRILOSEC) 20 mg capsule Take one tablet by mouth q day simvastatin (ZOCOR) 40 mg tablet Take 1 tablet by mouth daily at bedtime. polyethylene glycol 3350 (MIRALAX) 17 gram/dose powder Take 17 g by mouth once daily. Dissolve dosein 4 - 8 ounces of liquid and take as directed. TURMERIC ORAL Take 1 capsule by mouth once daily. calcium carbonate/vitamin D3 (CALCIUM WITH VITAMIN D ORAL) Take 1 tablet by mouth once daily. IPRATROPIUM BROMIDE NASAL Use 1 Leburn in the nose twice daily. hypromellose(GENTEAL MODERATE 0.3 % EYE DROPS) To left eye ASPIRIN 81 MG TAB Take one (1) tablet daily . No current facility-administered medications for this visit. ALLERGIES: ALLERGIES Allergen Reactions Asa [Salicylates] ringing in ears Flonase [Fluticason* Other: See Comments gets jittery Genteal Pm [White P* Itching Sulfa (Sulfonamide * Hives PAST MEDICAL HISTORY 05/19/2006: Anemia of chronic renal failure, stage 2 (mild) No date: Arthritis Comment: left foot and right thumb No date: Diabetes mellitus (HCC) No date: Esophageal reflux No date: Essential hypertension, benign No date: Essential tremor No date: GERD (gastroesophageal reflux disease) No date: Heart murmur 08/25/2018: Hiatal hernia No date: Other and unspecified hyperlipidemia No date: Senile osteoporosis No date: Unspecified hypothyroidism PAST SURGICAL HISTORY No date: ADENOIDECTOMY PRIMARY <AGE 12 Comment: Adenoidectomy No date: APPENDECTOMY Comment: open 11/28/2016: COLONOSCOPY Comment: Peace- diverticulosis. 10/15/2023: COLONOSCOPY 08/25/2018: ESOPHAGOGASTRODUODENOSCOPY TRANSORAL DIAGNOSTIC Comment: EGD No date: EYE SURGERY HX No date: NEUROPLASTY &/TRANSPOS MEDIAN NRV CARPAL TUNNE Comment: Carpal tunnel decomp- left No date: PAST SURGICAL HISTORY OF Comment: salivary gland removed- chronic infection 06/03/2012: PAST SURGICAL HISTORY OF Comment: right trigger finger releases 1-4 06/23/2014: PAST SURGICAL HISTORY OF Comment: left ring trigger finger release No date: RHINP PRIM LAT&ALAR CRTLGS&/ELVTN NASAL TI Comment: Rhinoplasty No date: RHYTIDECTOMY NECK W/PLATYSMAL TIGHTENING Comment: eye brow lift No date: TONSILLECTOMY PRIMARY/SECONDARY <AGE 12 Comment: Tonsillectomy No date: TOTAL ABDOMINAL HYSTERECT W/WO RMVL TUBE OVARY Comment: Hysterectomy, DHIRAJ 02/25/2023: TOTAL KNEE REPLACEMENT FAMILY HISTORY Problem Relation Age of Onset Heart Mother massive HI, in her 70's other (Other) Father unknown Alzheimer's Disease Sister Cancer Maternal Grandmother GI CANCER Heart Maternal Aunt Diabetes Maternal Aunt Heart Maternal Uncle Colon Cancer No Family History Social History Tobacco Use Smoking status: Never Smokeless tobacco: Never Vaping Use Vaping Use: Never used Substance Use Topics Alcohol use: No Drug use: No Reviewed current medications, allergies, past medical history, surgical history, family history andsocial history today. REVIEW OF SYSTEMS All other reviewed and negative other than HPI. HEALTH MAINTENANCE: Reviewed health maintenance issues today and recommended the following in detail. Depression Screening Never done Anxiety Screening Never done Bone Density Screening due on 06/23/2018 Covid-19 Vaccine( season) due on 10/04/2023 VITALS: BP 153/66 Pulse 65 Ht 154.9 cm (5' 1) Wt 48.1 kg (106 lb) BMI 20.03 kg/m Last 4 Encounter Wt Readings: Date: Wt: 03/23/2024 48.1 kg (106 lb) 01/17/2024 48.9 kg (107 lb 12.9 oz) 12/14/2023 48.5 kg (107 lb) 10/15/2023 49 kg (108 lb 0.4 oz) PHYSICAL EXAMINATION: General appearance: Well appearing, alert, in no acute distress, well-hydrated, well nourished. Skin: Skin color, texture, turgor normal, no suspicious rashes or lesions Chest wall: tender to palpation on the left side. No step off. No palpable mass Lungs: Lungs clear to auscultation. No wheezing, rhonchi, rales Heart: RRR , murmur unchanged, gallop, or rubs. No ectopy Abdomen: Normal abdominal exam, Abdomen soft, non-tender. Bowel sounds normal. No masses, organomegaly Extremities: No deformities, edema, skin discoloration, clubbing or cyanosis. Good capillary refill. Musculoskeletal: No joint swelling, deformity, or tenderness. Has splint on finger from dislocation. Seeing ortho ASSESSMENT/PLAN: 1. Restless legs syndrome - ICD9: 333.94, ICD10: G25.81 (primary diagnosis) - stable. Continue meds. 2. Essential tremor - ICD9: 333.1, ICD10: G25.0 Stable. 3. Essential hypertension, benign - ICD9: 401.1, ICD10: I10 - Worsening control - Continue current medications - Follow up in 4 weeks for hypertension visit 4. Mixed hyperlipidemia - ICD9: 272.2, ICD10: E78.2 - watch diet. 5. Nonrheumatic mitral valve regurgitation - ICD9: 424.0, ICD10: I34.0 - per cardiology. 6. Gastroesophageal reflux disease with esophagitis, unspecified whether hemorrhage - ICD9: 530.11,ICD10: K21.00 - continue meds. 7. Stage 3 chronic kidney disease, unspecified whether stage 3a or 3b CKD (HCC) - ICD9: 585.3, ICD10: N18.30 - follow labs. 8. Hypothyroidism, unspecified type - ICD9: 244.9, ICD10: E03.9 - Instructed patient on importance of taking on an empty stomach either first thing in the morning or at bedtime. - THYROID STIMULATING HORMONE 9. Hypogammaglobulinemia (HCC) - ICD9: 279.00, ICD10: D80.1 - had work up per hematology in the past. No further follow up was needed. 10. Prediabetes - ICD9: 790.29, ICD10: R73.03 - follow 11. Chest pain, unspecified type - ICD9: 786.50, ICD10: R07.9 - ? Musculoskeletal. Recently saw cardiology and they elected to echo for same. Ecg is unchanged from previous. - ECG COMPLETE - XR CHEST 2V FRONTAL/LAT - ECG COMPLETE 12. Headache, unspecified headache type - ICD9: 784.0, ICD10: R51.9 Call if worsens. 13. Screening for depression - ICD9: V79.0, ICD10: Z13.31 - DEPRESSION SCREENING 14. Encounter for screening examination for other mental health and behavioral disorders - ICD9: V79.8, ICD10: Z13.39 - ANXIETY SCREENING 15. OSTEOPOROSIS POSTMENOPAUSAL - ICD9: 733.01, ICD10: M81.0 - avoid repeat dexa due to advanced age 16. Myalgia - ICD9: 729.1, ICD10: M79.10 - follow labs. - COMPLETE BLOOD COUNT AND DIFFERENTIAL - COMPREHENSIVE METABOLIC PANEL - SEDIMENTATION RATE, WESTERGREN - MAGNESIUM Jeffy Fields MD documented in this [facility] Telephone encounter Note * Telephone Encounter - Magdalena Hector RN - 03/22/2024 10:44 AM EDT Routing to provider for review. [facility]07-29-2024 Telephone encounter Note* Telephone Encounter - eTte Smith - 03/21/2024 9:23 AM EDT Pharmacy verified in [facility] Patient has been identified by name and date of : Yes Patient aware RX will be sent to pharmacy. No need to notify patient. Patient phones for refill(s): Requested Prescriptions Pending Prescriptions Disp Refills pregabalin (LYRICA) 50 mg capsule 270 capsule 1 Sig: Take 1 capsule by mouth three times a day for 180 days. (As directed) Date of last office visit : 05/30/2015 Date of next office visit : Visit date not found Last 2 Encounter Wt Readings: Date: Wt: 01/17/2024 48.9 kg (107 lb 12.9 oz) 12/14/2023 48.5 kg (107 lb) Not applicable Please advise. Tete Smith [facility]07-22-2024 History of Present illness Narrative* Zenon Huston MD - 03/14/2024 10:45 AM EDT Images from the original note were not included. [facility] [address] [place] [address] [place] [id number] Dept: [phone] Dept 03/14/2024 Chief Complaint Patient presents with Post-op Open reduction right middle finger PIP joint with PIP joint silicone arthroplasty on 02/12/24 SUBJECTIVE Chinyere is approximately 4 week(s) and 3 days s/p Open reduction right middle finger PIP joint with PIP joint silicone arthroplasty. She is no longer taking anything for pain. She states as long as she is in the splint the finger is not painful. The patient feels she is recovering well as expected. She states that her swelling has improved since her last office visit and she has minimal discomfort. She has been compliant with her custom splint and is waldo taping her middle finger when she showers. She has not yet started formal occupational therapy. She mentions that if therapy is recommended she would like to attend closer to her home in [place]. OBJECTIVE Ht 1.549 m (5' 1) Wt 46.3 kg (102 lb) BMI 19.27 kg/m Ortho Exam Focused Exam of the RIGHT Upper Extremity Skin: appropriately healed incision(s) without evidence of infection Edema: mild edema surrounding the middle finger PIP joint ROM: Motor: Intact in the hand - able to fire AIN, PIN, and Ulnar nerves Sensation: normal in the median, ulnar, and radial nerve distributions Perfusion: Brisk capillary refill in all 5 digits IMAGING RIGHT Long Finger 2V show a well-positioned silicone PIP arthroplasty ASSESSMENT (S63.814D) Dislocation of proximal interphalangeal joint of right middle finger, subsequent encounter (Z96.698) History of arthroplasty of finger 1. Dislocation of proximal interphalangeal joint of right middle finger, subsequent encounter XR fingers 2+ views right, External referral to Occupational Therapy 2. History of arthroplasty of finger XR fingers 2+ views right, External referral to Occupational Therapy PLAN Chinyere is recovering well postoperatively. She was advised to begin coming out of her splint to work gentle PIP range of motion of her right middle finger. She was provided with a prescription for formal external occupational therapy. She is to continue nonweightbearing through her right hand and wearing her custom splint at all times. She understands she can continue to remove her splint for hygiene purposes as well as range of motion exercises. She will then follow-up in 1 month to reassess her range of motion with repeat films. Her questions were answered and she is comfortable with the plan. Immobilization: Custom OT splint: Continue with current use Weight Bearing: Non Weight Bearing Rehabilitation: OT/PT Rx given: To follow protocol. Follow-up: Chinyere will followup with me in 1 months. She knows to call the office with any questions or concerns in the interim. Future Imaging: RIGHT Long Finger 2V Zenon Huston MD Hand and Upper Extremity Surgery [employer] [employer] [facility] Department of Orthopaedics and Sports Medicine 03/14/2024 at 11:18 AM (Please note that portions of this note may have been completed with a voice recognition program. Efforts were made to edit the dictations but occasionally words are mis-transcribed.) documented in this [facility]07-02-2024 History of Present illness Narrative* Mark Murphy OT - 02/23/2024 1:17 PM EDT Pt returned to clinic for slight adjustment on custom splint fabricated last week. Pt stated Dr Huston advised her to return to make it straighter. Care was made to ensure PIP joint was at end range extn and without ulnar or radial deviation. Pt had been discharged and adjustment was minimal and completed in < 8 min. Pt reported fit was improved. No charges were filed documented in this [facility]07-01-2024 History of Present illness Narrative* Zenon Huston MD - 02/22/2024 11:15 AM EDT Images from the original note were not included. [facility] [address] [place] [address] [place] [id number] Dept: [phone] Dept 02/22/2024 Chief Complaint Patient presents with Post-op DOS 02/12/24 Open reduction right middle finger PIP joint with PIP joint silicone arthroplasty SUBJECTIVE Chinyere is approximately 10 day(s) s/p DOS 02/12/24 Open reduction right middle finger PIP joint withPIP joint silicone arthroplasty. States her pain is better now than it was prior to surgery. Is overall pleased with her early results. Has already been fit with the PIP gutter splint. OBJECTIVE BP 132/60 Ht 5' 1 (1.549 m) Wt 102 lb (46.3 kg) BMI 19.27 kg/m Ortho Exam Focused Exam of the RIGHT Upper Extremity Dorsal incision well-healed. SPECT mild soft tissue swelling. Approximately 20 degree extensor lag at the PIP joint. Slight ulnar deviation. FDS and FDP intact. NVID. Clinical image(s): IMAGING NONE ASSESSMENT (C02.935W) Dislocation of proximal interphalangeal joint of right middle finger, subsequent encounter (Z96.940) History of arthroplasty of finger 1. Dislocation of proximal interphalangeal joint of right middle finger, subsequent encounter 2. History of arthroplasty of finger PLAN Chinyere is doing very well. Her PIP splint can be remolded with slight radial deviation and a bit more extension. She is to continue working MCP and DIP joint motion. Avoid any flexion of the PIP joint see her back in about 3 weeks. Immobilization: Custom OT splint: Continue with current use Weight Bearing: Non Weight Bearing Rehabilitation: NO formal rehabilitation required at this point. Follow-up: Chinyere will followup with me in 3 weeks. She knows to call the office with any questionsor concerns in the interim. Future Imaging: RIGHT Long Finger 2V Zenon Huston MD Hand and Upper Extremity Surgery [employer] Department of Orthopaedics and Sports Medicine 02/22/2024 at 11:16 AM (Please note that portions of this note may have been completed with a voice recognition program. Efforts were made to edit the dictations but occasionally words are mis-transcribed.) documented in this [facility]07-01-2024 Telephone encounter Note* Telephone Encounter - Magdalena Hector RN - 02/22/2024 9:13 AM EDT Received a refill request via telephone from patient for the following medication(s): Requested Prescriptions Pending Prescriptions Disp Refills rOPINIRole (REQUIP) 0.5 mg tablet 360 tablet 3 Sig: one tablet at noon and 4PM, 1 tablets at 8PM and 1 tablet at midnight. The pharmacy has been populated. Last (Rx'd/filled) by 02/20/[address] Clark Last Appointment(s) 04/21/2023 w/Radha Devi PA-C Next Appointment(s) 06/20/2024 w/Dr. Clark Routing to provider. Please review/advise. Magdalena Hector RN [facility]07-01-2024 Miscellaneous Notes* Telephone Encounter - Magdalena Hector RN - 02/22/2024 9:13 AM EDT Received a refill request via telephone from patient for the following medication(s): Requested Prescriptions Pending Prescriptions Disp Refills rOPINIRole (REQUIP) 0.5 mg tablet 360 tablet 3 Sig: one tablet at noon and 4PM, 1 tablets at 8PM and 1 tablet at midnight. The pharmacy has been populated. Last (Rx'd/filled) by 02/20/[address] Clark Last Appointment(s) 04/21/2023 w/Radha Devi PA-C Next Appointment(s) 06/20/2024 w/Dr. Clark Routing to provider. Please review/advise. Magdalena Hector RN * Telephone Encounter - Tete Smith - 02/22/2024 8:44 AM EDT Pharmacy verified in Epic Patient has been identified by name and date of : Yes Patient aware RX will be sent to pharmacy. No need to notify patient. Patient phones for refill(s): Requested Prescriptions Pending Prescriptions Disp Refills rOPINIRole (REQUIP) 0.5 mg tablet 360 tablet 3 Sig: one tablet at noon and 4PM, 1 tablets at 8PM and 1 tablet at midnight. Date of last office visit : 05/30/2015 Date of next office visit : Visit date not found Last 2 Encounter Wt Readings: Date: Wt: 01/17/2024 48.9 kg (107 lb 12.9 oz) 12/14/2023 48.5 kg (107 lb) Not applicable Please advisePhilip Smith [facility] Telephone encounter Note * Telephone Encounter - Tete Smith - 02/22/2024 8:44 AM EDT Pharmacy verified in Epic Patient has been identified by name and date of : Yes Patient aware RX will be sent to pharmacy. No need to notify patient. Patient phones for refill(s): Requested Prescriptions Pending Prescriptions Disp Refills rOPINIRole (REQUIP) 0.5 mg tablet 360 tablet 3 Sig: one tablet at noon and 4PM, 1 tablets at 8PM and 1 tablet at midnight. Date of last office visit : 05/30/2015 Date of next office visit : Visit date not found Last 2 Encounter Wt Readings: Date: Wt: 01/17/2024 48.9 kg (107 lb 12.9 oz) 12/14/2023 48.5 kg (107 lb) Not applicable Please advise. Tete Smith [facility]06-26-2024 History of Present illness Narrative* Mark Murphy OT - 02/17/2024 11:00 AM EDT Images from the original note were not included. [facility] AT [address] [facility] [address] Dept: [phone] Dept OCCUPATIONAL THERAPY EVALUATION - ORTHOTIC ONLY Patient Name: Chinyere Alberts : 1935 Date of Service: 02/17/2024 Referring Provider: Zenon Huston MD Visit #: 1 Diagnosis: Dislocation of finger PIP joint, initial encounter General Information Reason for referral/Mechanism of injury: Right hand middle finger dislocation secondary to a fall in October. Pt is s/p open reduction right middle finger PIP joint with PIP joint silicone arthroplasty(DOS 02/12/2024). Pt referred for custom splinting. Will attend therapy closer to home in [place] Patient Preferences: Chinyere Precautions/Red Flags: Yes UE weight bearing status: NWB Fall Risk: Yes PMHX: Chinyere has a past medical history of Arthritis, Diabetes mellitus (HCC), GERD (gastroesophageal reflux disease), High cholesterol, Hypertension, Hypothyroidism, and Restless leg syndrome. PSHX: Chinyere has a past surgical history that includes Hysterectomy; Appendectomy; Breast biopsy (Left); Septoplasty; Colonoscopy; Salivary gland surgery (Right); Cataract extraction (Bilateral); Knee Arthroplasty (Right); and Other surgical history (Right, 02/12/2024). Have you experienced any anxiety or depression?: No Have you experienced thoughts of self-harm or suicidal thoughts?: No Physician follow-up appointment?: Yes Subjective Chief Complaint: throughout proximal 1/2 of right middle finger. Pain: Current: 2-3/10 Prior Level of Function: Pt lives with . 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 Pt enjoys travel. Objective Hand Dominance: Right Skin Integrity: sutures in place. Incision is healing well without sign of infection Edema: moderate throughout the middle finger. Palpation: TTP proximal middle finger. ROM: CURRENT SINGLE DIGIT ROM RIGHT long finger MCP (nl 0-45 H/90 ) PIP (nl 0 /100 ) DIP (nl 0 -80 ) EXTENSION full NT 0 FLEXION 44 NT 15 Sensation: Pt reports normal sensation Coordination: impaired Fine Motor: impaired Assessment Chinyere is a 88 y.o. patient 5 days s/p open reduction right middle finger PIP joint with PIP joint silicone arthroplasty referred for custom splinting. Splint was fabricated. Pt was educated in use, application, and precautions. Advised Pt to contact clinic if any adjustments were needed. Pt indicated intention to attend therapy closer to home. Will discharge at this time. Rehab Potential: Good Goals General/Ortho Plan: Discharge from OT Treatment Splinting Location: right middle finger Type: custom middle finger PIP gutter splint Splinting: Fabrication Splinting Education: [place], [place], Wear schedule, Precautions Time Entry Total Treatment Time Start Time: 1100 Stop Time: 1130 Time Calculation (min): 30 min OT Therapeutic Procedures Time Entry Application of Splint Time Entry: 20 Mark Murphy OT documented in this [facility]06-26-2024 History of Present illness Narrative* Katrin Caraballo PA-C - 02/17/2024 10:30 AM EDT Images from the original note were not included. Subjective: Chinyere is approximately 5 day(s) s/p Open reduction right middle finger PIP joint with PIP joint silicone arthroplasty . Pain is minimal. She is no longer taking anything for pain. She denies significant complaints. The patient has been compliant with non-weight bearing restrictions in post operative splint. She denies numbness and tingling. The patient feels that she is recovering well postoperatively with minimal discomfort. She has beencompliant with her postoperative restrictions in her PIP extension splint. She is scheduled for a custom splint appointment immediately following her visit today in the office. She denies new paresthesias. Objective: BP (!) 142/68 Ht 5' 1 (1.549 m) Wt 102 lb (46.3 kg) BMI 19.27 kg/m Ortho Exam Focused Exam of the RIGHT Upper Extremity Skin: healing incision without evidence of infection Clinical Picture: Edema: moderate edema surrounding the long finger PIP joint Palpation: tender to palpation over the long finger PIP joint, as expected postoperatively ROM: Right middle finger deferred at the PIP joint due to postoperative restrictions, patient is able to flex DIP joint 10 to 20 degrees and MCP approximately 45 degrees with full active extension Remaining fingers flex 2-3cm from palm. Active wrist range of motion: full flexion/ full extension.Pronation full/ Supination full. Motor: Intact in the hand - able to fire AIN, PIN, and Ulnar nerves Sensation: to light touch is normal in the median, ulnar, and radial nerve distributions Perfusion: Brisk capillary refill in all 5 digits XRay: RIGHT Long Finger 2V show status post silicone arthroplasty of the PIP joint, implant is well-positioned with no change when compared to operative films Assessment Diagnosis Plan 1. Dislocation of proximal interphalangeal joint of right middle finger, subsequent encounter 2. History of arthroplasty of finger Plan I would like Chinyere to be fit with custom splint with occupational therapy. She is to wear her splint at all times and can only remove for hygiene purposes. Finger range of motion was encouraged within the confines of the splint. She understands that she is to avoid range of motion of the middle finger PIP joint but can perform gentle flexion and extension of the DIP and MCP joints within the confines of her custom splint. A prescription to formal occupational therapy was provided to the patient. The patient is to remain nonweightbearing through the hand. Expected recovery course was discussed with the patient. I would like to see her back next week for repeat skin check and anticipated suture removal. Their questions were answered and are comfortable with the plan. Weight Bearing: Non Weight Bearing Rehabilitation: OT/PT Rx given: To follow protocol. Dr. Huston will see Chinyere back in 1 week to see how she is doing. Chinyere knows to call the office with any questions or concerns in the interim. Future Imaging: NONE Electronically signed by Katrin Caraballo PA-C to Zenon Huston M.D. Hand & Upper Extremity Surgery 02/17/2024 at 11:30 AM. (Please note that portions of this note may have been completed with a voice recognition program. Efforts were made to edit the dictations but occasionally words are mis-transcribed.) documented in this [facility]06-24-2024 Telephone encounter Note* Telephone Encounter - Jennifer Broussard APRN.CNS - 02/15/2024 1:56 PM EDT The following approved medication requests have been transmitted electronically. Requested Prescriptions Pending Prescriptions Disp Refills losartan (COZAAR) 50 mg tablet 90 tablet 1 Sig: Take 1 tablet by mouth once daily. Jennifer Broussard APRN.CNS [facility]06-24-2024 Miscellaneous Notes* Telephone Encounter - Jennifer Broussard APRN.CNS - 02/15/2024 1:56 PM EDT The following approved medication requests have been transmitted electronically. Requested Prescriptions Pending Prescriptions Disp Refills losartan (COZAAR) 50 mg tablet 90 tablet 1 Sig: Take 1 tablet by mouth once daily. Jennifer Broussard APRN.CNS * Telephone Encounter - Deysi Ewing - 02/15/2024 10:35 AM EDT Prescription Refill Information The patient has been identified by name and date of : Yes Caregiver verified no other encounters exist for this prescription request: Yes Caregiver confirmed with patient/requestor that no other refills are due, in the near future, with this provider at this time: Yes The last office visit in the department: 09/23/23 Does the patient have a future office visit with this provider/department: Yes Requested Prescriptions Pending Prescriptions Disp Refills losartan (COZAAR) 50 mg tablet 90 tablet 1 Sig: Take 1 tablet by mouth once daily. Deysi Fatima February 15, 2024 10:36 AM [facility] Telephone encounter Note * Telephone Encounter - Deysi Ewing - 02/15/2024 10:35 AM EDT Prescription Refill Information The patient has been identified by name and date of : Yes Caregiver verified no other encounters exist for this prescription request: Yes Caregiver confirmed with patient/requestor that no other refills are due, in the near future, with this provider at this time: Yes The last office visit in the department: 09/23/23 Does the patient have a future office visit with this provider/department: Yes Requested Prescriptions Pending Prescriptions Disp Refills losartan (COZAAR) 50 mg tablet 90 tablet 1 Sig: Take 1 tablet by mouth once daily. Deysi Fatima February 15, 2024 10:36 AM [facility]06-21-2024 Hospital Discharge instructions* Discharge Instructions* Jose Martin Jean PA-C - 02/12/2024 3:44 PM EDT Bandage: Keep operative splint/dressing on, clean, and dry until follow up appointment in 1-2 weeks. Swelling control: Elevate and Ice for pain control. Immobilization: Encourage range of motion of index finger, ring finger, little finger, thumb, wrist and elbow in splint/dressing with goal of touching finger tips to splint material/dressing in palm by initial post op appointment. Weightbearing: Non weight bearing in operative extremity. Nerve block for pain control: You received a local injection with lidocaine and epinephrine today. It is normal for your finger tip to look pale or white for up to 10 hours after surgery but if this persists past the 10 hours please call the office immediately. * Attachments The following attachments cannot be sent through Care Everywhere. 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 Chinyere Alberts is a 88 y.o. year-old female with right middle finger proximal interphalangeal joint dislocation. I have discussed with her, preoperatively, the complications,limitations, expectations, alternatives, and risks of surgical intervention which she has demonstrated understanding. No guarantees were given or implied. After having all of her questions answered to her satisfaction, Ms. Chinyere Alberts has provided written informed consent to proceed. Please see previous notes for full operative risk discussion. Procedure: Chinyere Alberts was identified in the preoperative waiting area. Her operative site was initialed and consent was reviewed. Final questions were answered. She was brought to the operating room and placed in the supine position. All bony prominences were well padded. The operative extremity was prepped and draped in the usual sterile fashion. A surgical timeout was then performedwith the patient's identification, the procedure to be performed being reviewed, verification that the patient had received preoperative antibiotics if indicated, and verification of the correct surgical site. The patient's ASA was verified by the nurse lead janitor and the anesthesia staff. Fire risk was assessed. An esmarch bandage was used to exsanguinate the limb and the tourniquet was inflatedto 250mm Hg. I first attempted a closed reduction but was unsuccessful. I made a longitudinal incision on the dorsum of the middle finger PIP joint. Elevated full-thickness skin flaps from the extensor mechanism which was markedly thickened. I divided the extensor tendon longitudinally across the PIP joint. At this point I was able to expose the head of the proximal phalanx and noted complete attenuated ruptures of both the radial and ulnar collateral ligaments from the proximal phalangeal neck. The base ofthe middle phalanx was volarly dislocated and resting along the volar aspect of the proximal phalangeal neck. I shotgun the joint opened and released all soft tissues from the base of the middle phalanx. There was grade 4 chondral wear of the middle phalanx. I elected to proceed with joint arthroplasty. Use a small sling saw to excise the proximal phalangeal head. I then broached the proximal andmiddle phalanx to accept a size 1 implant which was trialed. There was excellent soft tissue tension without bony impingement in 90 degrees of flexion. Trial implant was removed. Wound was irrigated with Betadine impregnated saline. The final implant was placed and again fluoroscopic images confirmed excellent size of implant with bony free impingement from full extension and 90 degrees of flexion. I then closed the dorsal capsule and extensor tendon with interrupted 3-0 FiberWire sutures. Tourn iquet is deflated. Hemostasis achieved bipolar cardiogenic compression. Skin was then closed with nylon sutures followed by a small PIP extension splint. Ms. Chinyere Alberts was taken to the recovery room in stable condition. POST OPERATIVE PLAN IPO: Fit with custom PIP extension splint for the right middle finger. Encourage full MCP and DIP joint motion unrestricted. Splint at all times when not working ROM. Strict NWB. No flexion of PIP x 4 weeks. At 4 weeks may begin active flexion at the PIP joint. Splint to be worn when not working ROM and at night for total of 12 weeks. Strengthening to begin at 8 weeks. 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 Chinyere Alberts is a 88 y.o. year-old female with right middle finger proximal interphalangeal joint dislocation. I have discussed with her, preoperatively, the complications,limitations, expectations, alternatives, and risks of surgical intervention which she has demonstrated understanding. No guarantees were given or implied. After having all of her questions answered to her satisfaction, Ms. Chinyere Alberts has provided written informed consent to proceed. Please see previous notes for full operative risk discussion. Procedure: Chinyere Alberts was identified in the preoperative waiting area. Her operative site was initialed and consent was reviewed. Final questions were answered. She was brought to the operating room and placed in the supine position. All bony prominences were well padded. The operative extremity was prepped and draped in the usual sterile fashion. A surgical timeout was then performedwith the patient's identification, the procedure to be performed being reviewed, verification that the patient had received preoperative antibiotics if indicated, and verification of the correct surgical site. The patient's ASA was verified by the nurse lead janitor and the anesthesia staff. Fire risk was assessed. An esmarch bandage was used to exsanguinate the limb and the tourniquet was inflatedto 250mm Hg. I first attempted a closed reduction but was unsuccessful. I made a longitudinal incision on the dorsum of the middle finger PIP joint. Elevated full-thickness skin flaps from the extensor mechanism which was markedly thickened. I divided the extensor tendon longitudinally across the PIP joint. At this point I was able to expose the head of the proximal phalanx and noted complete attenuated ruptures of both the radial and ulnar collateral ligaments from the proximal phalangeal neck. The base ofthe middle phalanx was volarly dislocated and resting along the volar aspect of the proximal phalangeal neck. I shotgun the joint opened and released all soft tissues from the base of the middle phalanx. There was grade 4 chondral wear of the middle phalanx. I elected to proceed with joint arthroplasty. Use a small sling saw to excise the proximal phalangeal head. I then broached the proximal andmiddle phalanx to accept a size 1 implant which was trialed. There was excellent soft tissue tension without bony impingement in 90 degrees of flexion. Trial implant was removed. Wound was irrigated with Betadine impregnated saline. The final implant was placed and again fluoroscopic images confirmed excellent size of implant with bony free impingement from full extension and 90 degrees of flexion. I then closed the dorsal capsule and extensor tendon with interrupted 3-0 FiberWire sutures. Tourn iquet is deflated. Hemostasis achieved bipolar cardiogenic compression. Skin was then closed with nylon sutures followed by a small PIP extension splint. Ms. Chinyere Alberts was taken to the recovery room in stable condition. POST OPERATIVE PLAN IPO: Fit with custom PIP extension splint for the right middle finger. Encourage full MCP and DIP joint motion unrestricted. Splint at all times when not working ROM. Strict NWB. No flexion of PIP x 4 weeks. At 4 weeks may begin active flexion at the PIP joint. Splint to be worn when not working ROM and at night for total of 12 weeks. Strengthening to begin at 8 weeks. 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 Chinyere Alberts is a 88 y.o. year-old female with right middle finger proximal interphalangeal joint dislocation. I have discussed with her, preoperatively, the complications,limitations, expectations, alternatives, and risks of surgical intervention which she has demonstrated understanding. No guarantees were given or implied. After having all of her questions answered to her satisfaction, Ms. Chinyere Alberts has provided written informed consent to proceed. Please see previous notes for full operative risk discussion. Procedure: Chinyere Alberts was identified in the preoperative waiting area. Her operative site was initialed and consent was reviewed. Final questions were answered. She was brought to the operating room and placed in the supine position. All bony prominences were well padded. The operative extremity was prepped and draped in the usual sterile fashion. A surgical timeout was then performedwith the patient's identification, the procedure to be performed being reviewed, verification that the patient had received preoperative antibiotics if indicated, and verification of the correct surgical site. The patient's ASA was verified by the nurse lead janitor and the anesthesia staff. Fire risk was assessed. An esmarch bandage was used to exsanguinate the limb and the tourniquet was inflatedto 250mm Hg. I first attempted a closed reduction but was unsuccessful. I made a longitudinal incision on the dorsum of the middle finger PIP joint. Elevated full-thickness skin flaps from the extensor mechanism which was markedly thickened. I divided the extensor tendon longitudinally across the PIP joint. At this point I was able to expose the head of the proximal phalanx and noted complete attenuated ruptures of both the radial and ulnar collateral ligaments from the proximal phalangeal neck. The base ofthe middle phalanx was volarly dislocated and resting along the volar aspect of the proximal phalangeal neck. I shotgun the joint opened and released all soft tissues from the base of the middle phalanx. There was grade 4 chondral wear of the middle phalanx. I elected to proceed with joint arthroplasty. Use a small sling saw to excise the proximal phalangeal head. I then broached the proximal andmiddle phalanx to accept a size 1 implant which was trialed. There was excellent soft tissue tension without bony impingement in 90 degrees of flexion. Trial implant was removed. Wound was irrigated with Betadine impregnated saline. The final implant was placed and again fluoroscopic images confirmed excellent size of implant with bony free impingement from full extension and 90 degrees of flexion. I then closed the dorsal capsule and extensor tendon with interrupted 3-0 FiberWire sutures. Tourn iquet is deflated. Hemostasis achieved bipolar cardiogenic compression. Skin was then closed with nylon sutures followed by a small PIP extension splint. Ms. Chinyere Alberts was taken to the recovery room in stable condition. POST OPERATIVE PLAN IPO: Fit with custom PIP extension splint for the right middle finger. Encourage full MCP and DIP joint motion unrestricted. Splint at all times when not working ROM. Strict NWB. No flexion of PIP x 4 weeks. At 4 weeks may begin active flexion at the PIP joint. Splint to be worn when not working ROM and at night for total of 12 weeks. Strengthening to begin at 8 weeks. Outpatient Follow-up XRays: Right Long Finger 2V Zenon Huston MD 02/12/2024 , 1:03 PM [facility] Work Phone: [phone] 704-271106-21-2024 History and physical note* Jose Martin Jean PA-C - 02/12/2024 12:39 PM EDT [facility] Pre-Surgical History and Physical Name: Chinyere Alberts : 1935 (Age-88 y.o.) Date of Service: Pt seen/examined on 02/12/2024 Chief Complaint: 88 y.o. female who we are asked to see/evaluate Chinyere Alberts for pre- procedure evaluationprior to Procedure Information Date/Time: 02/12/24 1510 Procedures: OPEN REDUCTION RIGHT MIDDLE FINGER PROXIMAL INTERPHALANGEAL JOINT (Right: Hand) - 60 minutes total Anesthesia: MAC/Local POSSIBLE PROXIMAL INTERPHALANGEAL JOINT ARTHROPLASTY (Right: Hand) - 60 minutes total Anesthesia: MAC/Local Location: [place] [address] / [facility] Operating Room Surgeons: Zenon Huston MD History Of Present Illness: HPI: Pt here for open reduction internal fixation right ring and small finger proximal phalanx fractures. There were no vitals taken for this visit. Past Medical History: Diagnosis Date Arthritis Diabetes mellitus (HCC) diet controlled GERD (gastroesophageal reflux disease) High cholesterol Hypertension Hypothyroidism Restless leg syndrome There are no problems to display for this patient. Past Surgical History: Procedure Laterality Date APPENDECTOMY BREAST BIOPSY Left benign CATARACT EXTRACTION Bilateral COLONOSCOPY HYSTERECTOMY KNEE ARTHROPLASTY Right SALIVARY GLAND SURGERY Right SEPTOPLASTY No family history on file. Medications: Prior to Admission medications Medication Sig Start Date End Date Taking? Authorizing Provider aspirin 81 MG chewable tablet Chew. Yes Historical Provider, Calcium Citrate-Vitamin D 250-2.5 MG-MCG tablet Take by mouth daily. Yes Historical Provider, ipratropium (Atrovent) 0.03 % nasal spray Administer into affected nostril(s) 2 times daily as needed. 02/10/22 Yes Historical Provider, levothyroxine (Synthroid, Levoxyl) 50 MCG tablet Take by mouth every morning (before breakfast). Yes Historical Provider, losartan (Cozaar) 50 MG tablet Take by mouth every morning. 07/24/23 Yes Historical Provider, Melatonin 3 MG tablet dispersible Take by mouth daily at bedtime. Yes Historical Provider, omeprazole (PriLOSEC) [address] capsule Take 20 mg by mouth daily. Yes Historical Provider, polyethylene glycol, PEG, 3350 (Miralax) 17 g packet Take by mouth daily. Yes Historical Provider, pregabalin (Lyrica) 50 MG capsule TAKE 1 CAPSULE BY MOUTH THREE TIMES DAILY DIRECTED Yes Historical Provider, rOPINIRole (Requip) 0.5 MG tablet Take by mouth 4 times daily. 02/20/23 Yes Historical Provider, simvastatin (Zocor) 40 MG tablet Take by mouth Nightly. 07/24/23 Yes Historical Provider, Turmeric (QC TUMERIC COMPLEX PO) Take 2 capsules by mouth daily. Yes Historical Provider, acetaminophen (Tylenol Extra Strength) 500 MG tablet Take by mouth every 8 hours as needed for mildpain (1-3). Historical ProviderMD Social history and Laboratory Data: Social History Tobacco Use Smoking Status Never Smokeless Tobacco Never Social History Substance and Sexual Activity Alcohol Use Never Social History Substance and Sexual Activity Drug Use Never No results found for: WBC, HGB, HCT, MCV, PLT No results found for: NA, K, CL, CO2, BUN, CREATININE, GLUCOSE, CALCIUM, PROT, BILITOT, ALKPHOS, AST, ALT, LABGLOM, AGRATIO, GLOB Review of systems negative except for what is noted in HPI and medical history. See Anesthesia Pre-op on the Day of Surgery for the completed Physical Exam. ASSESSMENT/PLAN: 1) open reduction internal fixation right ring and small finger proximal phalanx fractures. Electronically signed by: Jose Martin Jean PA-C, Date: 02/12/2024 at 12:40 PM [facility] [id number] History and physical note* Jose Martin Jean PA-C - 02/12/2024 12:39 PM EDT [facility] Pre-Surgical History and Physical Name: Chinyere Alberts : 1935 (Age-88 y.o.) Date of Service: Pt seen/examined on 02/12/2024 Chief Complaint: 88 y.o. female who we are asked to see/evaluate Chinyere Alberts for pre- procedure evaluationprior to Procedure Information Date/Time: 02/12/24 1510 Procedures: OPEN REDUCTION RIGHT MIDDLE FINGER PROXIMAL INTERPHALANGEAL JOINT (Right: Hand) - 60 minutes total Anesthesia: MAC/Local POSSIBLE PROXIMAL INTERPHALANGEAL JOINT ARTHROPLASTY (Right: Hand) - 60 minutes total Anesthesia: MAC/Local Location: [address] Operating Room Surgeons: Zenon Huston MD History Of Present Illness: HPI: Pt here for open reduction internal fixation right ring and small finger proximal phalanx fractures. There were no vitals taken for this visit. Past Medical History: Diagnosis Date Arthritis Diabetes mellitus (HCC) diet controlled GERD (gastroesophageal reflux disease) High cholesterol Hypertension Hypothyroidism Restless leg syndrome There are no problems to display for this patient. Past Surgical History: Procedure Laterality Date APPENDECTOMY BREAST BIOPSY Left benign CATARACT EXTRACTION Bilateral COLONOSCOPY HYSTERECTOMY KNEE ARTHROPLASTY Right SALIVARY GLAND SURGERY Right SEPTOPLASTY No family history on file. Medications: Prior to Admission medications Medication Sig Start Date End Date Taking? Authorizing Provider aspirin 81 MG chewable tablet Chew. Yes Historical Provider, Calcium Citrate-Vitamin D 250-2.5 MG-MCG tablet Take by mouth daily. Yes Historical Provider, ipratropium (Atrovent) 0.03 % nasal spray Administer into affected nostril(s) 2 times daily as needed. 02/10/22 Yes Historical Provider, levothyroxine (Synthroid, Levoxyl) 50 MCG tablet Take by mouth every morning (before breakfast). Yes Historical Provider, losartan (Cozaar) 50 MG tablet Take by mouth every morning. 07/24/23 Yes Historical Provider, Melatonin 3 MG tablet dispersible Take by mouth daily at bedtime. Yes Historical Provider, omeprazole (PriLOSEC) [address] capsule Take 20 mg by mouth daily. Yes Historical Provider, polyethylene glycol, PEG, 3350 (Miralax) 17 g packet Take by mouth daily. Yes Historical Provider, pregabalin (Lyrica) 50 MG capsule TAKE 1 CAPSULE BY MOUTH THREE TIMES DAILY DIRECTED Yes Historical Provider, rOPINIRole (Requip) 0.5 MG tablet Take by mouth 4 times daily. 02/20/23 Yes Historical Provider, simvastatin (Zocor) 40 MG tablet Take by mouth Nightly. 07/24/23 Yes Historical Provider, Turmeric (QC TUMERIC COMPLEX PO) Take 2 capsules by mouth daily. Yes Historical Provider, acetaminophen (Tylenol Extra Strength) 500 MG tablet Take by mouth every 8 hours as needed for mildpain (1-3). Historical Provider, Social history and Laboratory Data: Social History Tobacco Use Smoking Status Never Smokeless Tobacco Never Social History Substance and Sexual Activity Alcohol Use Never Social History Substance and Sexual Activity Drug Use Never No results found for: WBC, HGB, HCT, MCV, PLT No results found for: NA, K, CL, CO2, BUN, CREATININE, GLUCOSE, CALCIUM, PROT, BILITOT, ALKPHOS, AST, ALT, LABGLOM, AGRATIO, GLOB Review of systems negative except for what is noted in HPI and medical history. See Anesthesia Pre-op on the Day of Surgery for the completed Physical Exam. ASSESSMENT/PLAN: 1) open reduction internal fixation right ring and small finger proximal phalanx fractures. Electronically signed by: Jose Martin Jean PA-C, Date: 02/12/2024 at 12:40 PM documented in this e[id number] Telephone encounter Note* Telephone Encounter - Terri Rodriguez - 02/09/2024 12:16 PM EDT Called patient to discuss surgery details. She is aware that PAT will just be a phone call on at 1pm. We also talked about arrival time for surgery and her post op appointment with Katrin and OT. [id number] Miscellaneous Notes* Telephone Encounter - Terri Rodriguez - 02/09/2024 12:16 PM EDT Called patient to discuss surgery details. She is aware that PAT will just be a phone call on at 1pm. We also talked about arrival time for surgery and her post op appointment with Katrin and OT. * Telephone Encounter - Mk Cuevas - 02/09/2024 11:32 AM EDT Pt is confused regarding what else she needs to do prior to surgery other than the PAT phone call scheduled on 02/10 at 1300. Please call to answer any questions and provide clarification. Thank you! * Telephone Encounter - Jose Martin Jean PA-C - 02/09/2024 11:20 AM EDT PAT Orders Signed. Patient is on Aspirin and will need to contact the prescriber for management forthe surgery. * Telephone Encounter - Terri Rodriguez - 02/09/2024 9:18 AM EDT OT Custom Splint Appt @ [facility] 02/17/24 @ 11:00am * Telephone Encounter - Terri Rodriguez - 02/08/2024 4:04 PM EDT Please enter PAT orders Sx- - @ 1500 @ [facility] Consent- Open reduction right middle finger PIP joint with possible PIP joint arthroplasty - [id number] & [id number] Dx- S63.289A Anesthesia- MAC/Local PAT- Phone Call - 02/11/2024 @ [facility] Case- [id number] * Telephone Encounter - Terri Rodriguez - 02/08/2024 4:04 PM EDT Patient has Medicare A&B = No PA Required * Telephone Encounter - Terri Rodriguez - 02/08/2024 3:41 PM EDT Please enter PAT orders: Chuck PAT: Phone Call ~ 02/11/24 @ 1:00pm Surgery: Thursday02/12/2024 @ 3:00pm Procedure: Open reduction right middle finger PIP joint with possible PIP joint arthroplasty DX: (S63.289A) Dislocation of finger PIP joint, initial encounter Anesthesia: MAC/Local Insurance: Medicare A & B Allergies: Etodolac, Sulfa Antibiotics ROBEL SURGERY SCHEDULING SLIP Patient: Chinyere Alberts Date of : 1935 Date of Surgery: 02/12/24 Day of Surgery: Thu [facility]: [place] Duration: 60min Type: Outpatient PAT: Yes Med Clearance: No Anesthesia: MAC/Local Block: None Position: Supine Table: Stretcher Arm Board: Roll-up arm table Radiology: Small C-Arm CPT Code: 43410, 63114 Consent: Open reduction right middle finger PIP joint with possible PIP joint arthroplasty FollowUp: Any P.A. in 3-5 days XRays: Yes OT Splint needed at first PO appointment: Yes - right middle finger PIP gutter splint Special Requests Hand rafia [facility] silicone [facility] RemB documented in this [facility]06-18-2024 Miscellaneous Notes* Telephone Encounter - Terri Rodriguez - 02/09/2024 12:16 PM EDT Called patient to discuss surgery details. She is aware that PAT will just be a phone call on at 1pm. We also talked about arrival time for surgery and her post op appointment with Katrin and OT. * Telephone Encounter - Mk Cuevas - 02/09/2024 11:32 AM EDT Pt is confused regarding what else she needs to do prior to surgery other than the PAT phone call scheduled on 02/10 at 1300. Please call to answer any questions and provide clarification. Thank you! * Telephone Encounter - Jose Martin Jean PA-C - 02/09/2024 11:20 AM EDT PAT Orders Signed. Patient is on Aspirin and will need to contact the prescriber for management forthe surgery. * Telephone Encounter - Terri Rodriguez - 02/09/2024 9:18 AM EDT OT Custom Splint Appt @ [facility] 02/17/24 @ 11:00am * Telephone Encounter - Terri Rodriguez - 02/08/2024 4:04 PM EDT Please enter PAT orders Sx- 02-12-2024 @ 1500 @ [place] Consent- Open reduction right middle finger PIP joint with possible PIP joint arthroplasty - [id number] & [id number] Dx- S63.289A Anesthesia- MAC/Local PAT- Phone Call - 02/11/2024 @ 1300 Case- [id number] * Telephone Encounter - Terri Rodriguez - 02/08/2024 4:04 PM EDT Patient has Medicare A&B = No PA Required * Telephone Encounter - Terri Rodriguez - 02/08/2024 3:41 PM EDT Please enter PAT orders: Chuck PAT: Phone Call ~ 02/11/24 @ 1:00pm Surgery: Thursday02/12/2024 @ 3:00pm Procedure: Open reduction right middle finger PIP joint with possible PIP joint arthroplasty DX: (S63.289A) Dislocation of finger PIP joint, initial encounter Anesthesia: MAC/Local Insurance: Medicare A & B Allergies: Etodolac, Sulfa Antibiotics ROBEL SURGERY SCHEDULING SLIP Patient: Chinyere Alberts Date of : 1935 Date of Surgery: 02/12/24 Day of Surgery: [facility]: [place] Duration: 60min Type: Outpatient PAT: Yes Med Clearance: No Anesthesia: MAC/Local Block: None Position: Supine Table: Stretcher Arm Board: Roll-up arm table Radiology: Small C-Arm CPT Code: 75688, 31698 Consent: Open reduction right middle finger PIP joint with possible PIP joint arthroplasty FollowUp: Any P.A. in 3-5 days XRays: Yes OT Splint needed at first PO appointment: Yes - right middle finger PIP gutter splint Special Requests Hand rafia [facility] [employer] silicone implants RemB documented in this [facility]06-18-2024 Telephone encounter Note* Telephone Encounter - Mk Dalen - 02/09/2024 11:32 AM EDT Pt is confused regarding what else she needs to do prior to surgery other than the PAT phone call scheduled on Thur 6/20 at 1300. Please call to answer any questions and provide clarification. Thank you! [id number] Telephone encounter Note* Telephone Encounter - Jose Martin Jean PA-C - 02/09/2024 11:20 AM EDT PAT Orders Signed. Patient is on Aspirin and will need to contact the prescriber for management forthe surgery. [facility] Work Phone: 1(582) 616-411606-18-2024 Telephone encounter Note* Telephone Encounter - Terri Rodriguez - 02/09/2024 9:18 AM EDT OT Custom Splint Appt @ [facility] 02/17/24 @ 11:00am [facility] [id number] Telephone encounter Note* Telephone Encounter - Terri Rodriguez - 02/08/2024 4:04 PM EDT Please enter PAT orders Sx- 02-12-2024 @ 1500 @ [place] Consent- Open reduction right middle finger PIP joint with possible PIP joint arthroplasty - [id number] & 18699 Dx- S63.289A Anesthesia- MAC/Local PAT- Phone Call - 02/11/2024 @ 1300 Case- [id number] [facility] [id number] Telephone encounter Note* Telephone Encounter - Terri Rodriguez - 02/08/2024 4:04 PM EDT Patient has Medicare A&B = No PA Required [facility] [id number] Telephone encounter Note* Telephone Encounter - Terri Rodriguez - 02/08/2024 3:41 PM EDT Please enter PAT orders: [place] PAT: Phone Call ~ 02/11/24 @ 1:00pm Surgery: Thursday02/12/2024 @ 3:00pm Procedure: Open reduction right middle finger PIP joint with possible PIP joint arthroplasty DX: (S63.289A) Dislocation of finger PIP joint, initial encounter Anesthesia: MAC/Local Insurance: Medicare A & B Allergies: Etodolac, Sulfa Antibiotics ROBEL SURGERY SCHEDULING SLIP Patient: Chinyere Alberts Date of : 1935 Date of Surgery: 02/12/24 Day of Surgery: Thu Hospital: [place] Duration: 60min Type: Outpatient PAT: Yes Med Clearance: No Anesthesia: MAC/Local Block: None Position: Supine Table: Stretcher Arm Board: Roll-up arm table Radiology: Small C-Arm CPT Code: 96632, 58718 Consent: Open reduction right middle finger PIP joint with possible PIP joint arthroplasty FollowUp: Any P.A. in 3-5 days XRays: Yes OT Splint needed at first PO appointment: Yes - right middle finger PIP gutter splint Special Requests Hand tray [facility] silicone implants RemB [facility] [id number] History of Present illness Narrative* Zenon Huston MD - 02/08/2024 2:30 PM EDT Images from the original note were not included. [facility] [address] [place] [address] [place] [id number] Dept: [phone] Dept Chief Complaint Patient presents with New Patient Right middle finger dislocation HISTORY Chinyere Alberts is a 88 y.o. right handed female that presents for evaluation and treatment after sustaining an injury to her RIGHT long finger that occurred 3 months ago. She has been following with Ortho Vonda, waldo taping and having serial xrays since her injury. She reports sometime in the last 2-3 weeks she lost her motion and went in for a follow up 02/04/24 which revealed a dislocation, she denies any known re-injury or cause. She was referred here for further evaluation. She cannot tolerate NSAIDs and uses Tylenol for pain. Mechanism of injury - Fall in October 2023. Treatment up to this point has consisted of Waldo taping and XRays. No results found for: HGBA1C OBJECTIVE Ht 5' 1 (1.549 m) Wt 108 lb (49 kg) BMI 20.41 kg/m Ortho Exam Skin is intact. Middle finger PIP joint held in fixed 90 degrees of flexion. FDS and FDP intact. EDC intact. IMAGING Plain films were reviewed by myself from an outside disc. Chronic appearing volar dislocation middle finger PIP joint PROCEDURE None ASSESSMENT (S63.289A) Dislocation of finger PIP joint, initial encounter PLAN I discussed with Chinyere the natural history, expected outcome, and risks/benefits of both operativeand nonoperative management of her particular diagnosis relative to her age, activity level, most recent imaging, and physical exam. Chinyere presents with a several week history of her right middle finger PIP dislocation. I do not think a closed reduction would be at all successful and have some concerns about her maintaining an open reduction. We discussed surgical intervention to include the possibility of PIP joint arthroplasty restore motion and decrease pain. She is comfortable this plan and would like to be scheduled in the near future. I had an extensive discussion with Ms. Chinyere Alberts regarding the natural history, etiology, and dietetic aide consequences of her condition. We discussed both operative and non operative treatment options and Chinyere Alberts elected to proceed with surgical intervention. I have discussed with Ms. Chinyere Alberts the potential complications, limitations, expectations, alternatives, and risks of the proposed surgical procedure. Risks discussed include but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 large stool burden. She is still having consistent left lower quadrant abdominal pain. PAST MEDICAL HISTORY Diagnosis Date Anemia of chronic renal failure, stage 2 (mild) 05/19/2006 Arthritis left foot and right thumb Diabetes mellitus (HCC) Esophageal reflux Essential hypertension, benign Essential tremor GERD (gastroesophageal reflux disease) Heart murmur Hiatal hernia 08/25/2018 Other and unspecified hyperlipidemia Senile osteoporosis Unspecified hypothyroidism PAST SURGICAL HISTORY Procedure Laterality Date ADENOIDECTOMY PRIMARY <AGE 14 Adenoidectomy APPENDECTOMY open COLONOSCOPY 11/28/2016 [place]- diverticulosis. ESOPHAGOGASTRODUODENOSCOPY TRANSORAL DIAGNOSTIC 08/25/2018 EGD NEUROPLASTY &/TRANSPOS MEDIAN NRV CARPAL TUNNE Carpal tunnel decomp- left PAST SURGICAL HISTORY OF salivary gland removed- chronic infection PAST SURGICAL HISTORY OF 06/03/2012 right trigger finger releases 1-4 PAST SURGICAL HISTORY OF 06/23/2014 left ring trigger finger release RHINP PRIM LAT&ALAR CRTLGS&/ELVTN NASAL TI Rhinoplasty RHYTIDECTOMY NECK W/PLATYSMAL TIGHTENING eye brow lift TONSILLECTOMY PRIMARY/SECONDARY <AGE 14 Tonsillectomy TOTAL ABDOMINAL HYSTERECT W/WO RMVL TUBE OVARY Hysterectomy, DHIRAJ TOTAL KNEE REPLACEMENT 02/25/2023 Current Outpatient Medications Medication Sig melatonin 3 mg ODT Take by mouth daily at bedtime. pregabalin (LYRICA) 50 mg capsule Take 1 capsule by mouth three times a day for 180 days. (As directed) losartan (COZAAR) 50 mg tablet Take 1 tablet by mouth once daily. levothyroxine (SYNTHROID) 50 mcg tablet Take 1 tablet by mouth once daily 6 out of 7 days per week. omeprazole (PRILOSEC) 20 mg capsule Take one tablet by mouth q day simvastatin (ZOCOR) 40 mg tablet Take 1 tablet by mouth daily at bedtime. polyethylene glycol 3350 (MIRALAX) 17 gram/dose powder Take 17 g by mouth once daily. Dissolve dosein 4 - 8 ounces of liquid and take as directed. rOPINIRole (REQUIP) 0.5 mg tablet one tablet at noon and 4PM, 1 tablets at 8PM and 1 tablet at midnight. TURMERIC ORAL Take 1 capsule by mouth once daily. calcium carbonate/vitamin D3 (CALCIUM WITH VITAMIN D ORAL) Take 1 tablet by mouth once daily. IPRATROPIUM BROMIDE NASAL Use 1 Leburn in the nose twice daily. hypromellose(GENTEAL MODERATE 0.3 % EYE DROPS) To left eye ASPIRIN 81 MG TAB Take one (1) tablet daily . clonazePAM (KLONOPIN) 0.5 mg tablet Take 1/4 tablet nightly (Patient not taking: Reported on 09/23/2023) Current Facility-Administered Medications Medication Dose Route Frequency perflutren lipid microspheres 1.3 mL in NaCl (PF) 0.9% 10 mL injection (DEFINITY) INTRAVENOUS DIRECTED PRN sodium chloride 0.9 % (flush) 10 mL (BD POSIFLUSH) 10 mL INTRAVENOUS DIRECTED PRN ALLERGIES: Asa [Salicylates], Flonase [Fluticasone], Genteal Pm [White Petrolatum-Mineral Oil], andSulfa (Sulfonamide Antibiotics) PERSONAL HISTORY: Social History Tobacco Use Smoking status: Never Smokeless tobacco: Never Vaping Use Vaping Use: Never used Substance Use Topics Alcohol use: No Drug use: No FAMILY HISTORY: FAMILY HISTORY Problem Relation Age of Onset Heart Mother massive HI, in her 70's other (Other) Father unknown Alzheimer's Disease Sister Cancer Maternal Grandmother GI CANCER Heart Maternal Aunt Diabetes Maternal Aunt Heart Maternal Uncle Colon Cancer No Family History REVIEW OF SYMPTOMS: The review of systems data was entered by the nurse and reviewed by me There are no exam notes on file for this visit. PHYSICAL EXAMINATION: General: The patient is 88 year old female, well nourished, well hydrated in no acute distress. Thepatient is oriented to time, place, and person. VITALS: Blood pressure (!) 108/48, pulse 79, temperature 36.3 C (97.4 F), height 154.9 cm (5' 1), weight 49 kg (108 lb), SpO2 99%. Body mass index is 20.41 kg/m . HEENT: Normal cephalic, ataumatic, pupils are equally round, sclera are anicteric, mucous membranesare moist, oropharynx is clear. Neck has no masses, asymmetry or lymphadenopathy. Thyroid is unremarkable. Respiratory: Clear to auscultation and percussion. Normal respiratory excursion and pattern. Cardiac: Examination is regular rate and rhythm. Abdominal exam: Soft, nontender, with no palpable masses. No hepatosplenomegaly. No palpable hernias. Rectal exam: exam deferred Extremities: no clubbing, cyanosis or edema. No adenopathy. Other: LABORATORY VALUES: As Noted RADIOLOGIC STUDIES: As Noted Assessment IMPRESSION: Abdominal pain, llq (primary encounter diagnosis) PLAN: I plan to perform lower endoscopy. We discussed the risks and benefits of the planned endoscopy. I have informed the patient that complications can occur including failure to complete the endoscopy and perforation. The patient had the opportunity to ask questions concerning the planned endoscopy. My staff has also explained the procedure to the patient in understandable terms and has given the patient printed material concerning the procedure. The patient freely consents to surgery. I plan to use Miralax bowel preperation for endoscopy With this now still persistent over the last 6 months I think we need to repeat a colonoscopy to make sure that there is absolutely nothing going on within the colon itself. In addition I think some random biopsies might be in order. Diagnoses: (R10.32) Abdominal pain, LLQ (primary encounter diagnosis) My findings have been communicated to Dr. Jeffy Fields MD via shared medical record. This note will be forwarded to Dr. Jeffy Fields MD. Return to Clinic: The patient is instructed to follow-up with me 1 week post operatively. Ralf Giles III, MD documented [facility] Telephone encounter Note * Telephone Encounter - Urvashi Crowe - 10/09/2023 3:13 PM EST 10/15/2023 [facility]ON [facility]02-[facility] Miscellaneous Notes* Telephone Encounter - Urvashi Crowe - 10/09/2023 3:13 PM EST 10/15/2023 COLON ASC documented in this encounter[facility]24 Instructions* Patient Instructions* Ralf Giles MD - 10/09/2023 3:00 PM EST Images from the original note were not included. Bowel Preparation Instructions for: Miralax-Gatorade Preparations IF YOU DO NOT FOLLOW THESE DIRECTIONS, YOUR COLONOSCOPY WILL BE CANCELLED. May Instructions: Your bowel must be empty so that your doctor can clearly view your colon. Follow all of the instructions in this handout EXACTLY as they are written. Do NOT eat any solid food the ENTIRE day before your colonoscopy. Buy your bowel preparation at least 5 days before your colonoscopy. Four (4) Dulcolax laxative tablets containing 5mg of bisacodyl each (NOT Dulcolax stool softener) One (1) 8.3oz. bottle Miralax (238 grams) or generic equivalent 2 x 32oz. Bottles of Gatorade (NOT RED) Diabetic Patients: Use G2 (Gatorade 2) TRANSPORTATION on the Day of Your Exam A responsible adult MUST be present with you at Check In prior to your colonoscopy and REMAIN in the endoscopy area until you are discharged. You are NOT ALLOWED to drive, take a taxi or bus, or leave the Endoscopy Center ALONE. If you do not have a responsible driver service technician (family member or friend) withyou to take you home, your exam cannot be done with sedation and will be cancelled. Please bring a list of all of your current medications, including any Glog-ooi-Nfamjkz medications with you. Medications If you take insulin, diabetic medications or blood thinners such as Coumadin (warfarin), Plavix (clopidogrel), Ticlid (ticlopidine hydrochloride), Agrylin (anagrelide), Xarelto (Rivaroxaban), Pradaxa(Dabigatran), Eliquis (Apixaban), and Effient (Prasugrel). You MUST call the doctors who orders those medicines for instructions on altering the dosage before your colonoscopy. All other medications should be taken the day of the exam with a sip of water including ASPIRIN. Five (5) Days Before Your Colonoscopy Do NOT take medicines that stop diarrhea - such as Imodium, Kaopectate, or Pepto Bismol. Do NOT take fiber supplements - such as Metamucil, Citrucel, or Perdiem. Do NOT take products that contain iron - such as multi-vitamins (the label lists what is in the products). Three (3) Days Before Your Colonoscopy Do NOT eat high-fiber foods - such as popcorn, beans, seeds (flax, sunflower, quinoa), multigrain bread, nuts, salad/vegetables, or fresh and dried fruit. 1 Bowel Preparation Instructions for: Miralax-Gatorade Preparations One (1) Day Before Your Colonoscopy Only drink clear liquids the ENTIRE DAY before your colonoscopy. Do NOT eat any solid foods. Drink at least 8 ounces of clear liquids every hour after waking up. The clear liquids you can drink include: Clear Liquid (NO RED LIQUIDS) DO NOT DRINK Gatorade, Pedialyte or Powerade Clear broth or bouillon Coffee or tea (no milk or non-dairy creamer) Carbonated and non-carbonated soft drinks Pelon-Aid or other fruit flavored drinks Strained fruit juices (no pulp) Jell-O, popsicles, hard candy Water Alcohol Milk or non-dairy creamers Noodles or vegetables in soup Juice with pulp Liquid you cannot see through Do not use tobacco/vaping products Mix 1/2 of Miralax bottle (119 grams) in each 32 ounces of Gatorade bottle until dissolved. Keep cool in the refrigerator. DO NOT ADD ICE. The bowel preparation solution will be consumed in two parts. Part 1 5:00 PM - Evening before your colonoscopy Take 4 Dulcolax tablets. 6 PM - Evening before your colonoscopy Drink 32 oz. of the mixed solution. Drink an 8 oz. glass of bowel preparation every 15 minutes for a total of 4 glasses. Fifteen (15) minutes later, drink an 8 oz. glass of of clear liquids every 15 minutes for a total of 2 glasses. You may continue to drink clear liquids till midnight. Part 2 On the day of your colonoscopy you may drink clear liquids up to (three) 3 hours prior to procedure. 4 1/2 hours before your colonoscopy Take another 32 oz. bottle of mixed solution. Drink an 8 oz. glass of bowel prep every 15 minutes for a total of 4 glasses. Fifteen (15) minutes later, drink an 8 oz. glass of clear liquids every 15 minutes for a total of 2glasses. You may continue to drink clear liquids up to (three) 3 hours before your exam. 2 07/2019 documented in this encounter[facility]02-[facility]-2024 Miscellaneous Notes* Telephone Encounter - Elvia Mcrae LPN - 09/25/2023 9:16 AM EST Patient notified. * Telephone Encounter - Jeffy Fields MD - 09/25/2023 8:04 AM EST Labs are stable other than white count is mildly decreased. Recheck cbc in two weeks. Can be due torecent viral infection etc. documented in this encounterUpper [facility]12-01-2023 Miscellaneous Notes* Telephone Encounter - Roque Mike LPN - 07/24/2023 9:37 AM EST Last refill losartan 01/23/23 Qty: 90 with 1 refill Last refill levothyroxine 12/29/22 Qty: 90 with 1 refill Last refill omeprazole and simvastatin 07/09/22 Qty: 90 with 3 refills TERELL 06/23/23 NOV 09/23/23 Roque Mike LPN * Telephone Encounter - [place] Evelia Fatima - 07/24/2023 9:00 AM EST Patient has been identified by name and date of : Yes Requested Prescriptions Pending Prescriptions Disp Refills losartan (COZAAR) 50 mg tablet 90 tablet 3 Sig: Take 1 tablet by mouth once daily. levothyroxine (SYNTHROID) 50 mcg tablet 90 tablet 3 Sig: Take 1 tablet by mouth once daily 6 out of 7 days per week. omeprazole (PRILOSEC) 20 mg capsule 90 capsule 3 Sig: Take one tablet by mouth q day simvastatin (ZOCOR) 40 mg tablet 90 tablet 3 Sig: Take 1 tablet by mouth daily at bedtime. RX INSTRUCTIONS: Please send today Patient aware RX will be sent to pharmacy. No need to notify patient. Evelia Fatima documented in this encounter[facility]11-27-2023 Miscellaneous Notes* Telephone Encounter - Radha Devi PA-C - 07/20/2023 10:24 AM EST Will refill for 0.25mg nightly. PDMP website checked and validated. All prescriptions have been APPROPRIATELY filled. No suspiciousactivity was identified. 07/20/2023 by Radha Devi PA-C * Telephone Encounter - Marisabel Aguillon LPN - 07/20/2023 10:21 AM EST Pt states she is taking 0.25 mg nightly. Marisabel Aguillon LPN * Telephone Encounter - Radha Devi PA-C - 07/20/2023 10:19 AM EST Discussed quarter tablet daily at last appointment. Please confirm with patient that this is the dosage she is taking. * Telephone Encounter - Marisabel Aguillon LPN - 07/20/2023 9:21 AM EST TERELL 04/21/23 with MQ NOV 09/09/23 with MQ Refill 10/31/22 with qty: 30 and 2 refills Marisabel Aguillon LPN TERELL Assessment/Plan ASSESSMENT/PLAN: 1. 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 Does note that she is fatigued throughout the day, but attributes this to having poor sleep as well. No other side effects with increasing Lyrica. States that she has never had restless legs during the day on Thursday before and has not have them at restoration. No other new symptoms. Does note that it does wake her up sometimes at night. Regarding her sleep, notes that this has significantly worsened since stopping the Klonopin. Statesthat she is having strange and occasionally scary dreams that wake her up anywhere from 230 to 4:30AM and she has difficulty falling back asleep likely this poor sleep is contributing to her worsening restless leg syndrome. After discussion with collaborating surgeon, Dr. Clark, will try increasing Klonopin to quarter tablet a day to manage sleep. 3. Chronic kidney disease, unspecified CKD stage - ICD9: 585.9, ICD10: N18.9 We will obtain repeat CMP due to history of kidney disease and increase in Lyrica. Patient also reporting fatigue. Patient agreeable to treatment plan of care at this time, all questions were answered. Patient follow-up with the provider in 3 months or sooner should any symptoms change or worsen. Radha Devi PA-C * Telephone Encounter - Sadaf Finn RN - 07/20/2023 9:13 AM EST Pt reports she only takes 0.25 mg of the Klonopin at 2200. Patient has been identified by name and date of : Yes, Provider Dr Clark Date 07/20/23 Time 0914. Patient phones for refill(s): Requested Prescriptions Pending Prescriptions Disp Refills clonazePAM (KLONOPIN) 0.5 mg tablet 30 tablet 2 Sig: Take 1/2 tab QHS and 1/2 tablet at midnight. Date of last office visit in primary care: 07/16/2020 Date of next office visit in primary care: 09/09/23 Last 2 Encounter Wt Readings: Date: Wt: 06/24/2023 48.4 kg (106 lb 9.6 oz) 06/23/2023 48 kg (105 lb 12.8 oz) Previous labs/tests for medication: Blood Pressure: BUN (mg/dL) Date Value 04/21/2023 22 07/10/2021 23 Sodium (mmol/L) Date Value 04/21/2023 138 07/10/2021 137 Last 1 Encounter BP Readings: Date: BP: 06/24/2023 130/72 Liver Function: ALT (U/L) Date Value 04/21/2023 13 07/10/2021 15 AST (U/L) Date Value 04/21/2023 22 07/10/2021 17 Please advise. Thank you. Sadaf Finn RN. documented in this encounterUpper [facility]11-10-2023 History of Present illness Narrative* HarjinderDemetrio, RT(R) - 07/03/2023 12:00 PM EST RADIOLOGY SERVICE PROGRESS NOTE SERVICE DATE: 07/03/2023 SERVICE TIME: 12:23 PM PATIENT IDENTITY VERIFICATION COMPLETED USING TWO (2) STANDARD IDENTIFIERS: Name and Date of confirmed by patient verbally FALL SCREENING: Has the patient had 2 falls in the last year or 1 fall with injury or currently using an Ambulatory Assistive Device (Walker, Cane, Wheelchair, Crutches, etc.)? No PATIENT GENDER DATA: .female : No ALLERGIES: Reviewed and unchanged MEDICATIONS REVIEWED: No PATIENT RELEVANT IMPLANT DATA REVIEWED: Not Applicable CREATININE: Creatinine Date Value Ref Range Status 04/21/2023 1.13 (H) 0.58 - 0.96 mg/dL Final 01/23/2023 1.21 (H) 0.58 - 0.96 mg/dL Final 09/01/2022 0.99 (H) 0.58 - 0.96 mg/dL Final Estimated Glomerular Filtration Rate Date Value Ref Range Status 04/21/2023 47 (L) >=60 mL/min/1.73m Final Comment: Estimated Glomerular Filtration Rate (eGFR) is calculated using the 2020 CKD-EPI creatinine equation. This equation utilizes serum creatinine, sex, and age as parameters. The creatinine assay has traceable calibration to isotope dilution- mass spectrometry. Refer to KDIGO guidelines for clinical interpretation. In patients with unstable renal function, e.g. those with acute kidney injury, the eGFRmay not accurately reflect actual GFR. eGFR- Date Value Ref Range Status 07/10/2021 46 Final P.O.C.T. RESULTS: N/A July 03, [address] PERFORMED: No IV SITE: Ambulatory: A peripheral IV was started in the Right forearm with a Angio cath: 22 gauge. POST EXAM PIV STATUS: Discontinued PROCEDURE TYPE: NM INJECT: HIDA. 6.0 mCi Tc99m CHOLETEC. CCK 1.0 micrograms intravenous at 1220. ADMINISTRATION TIME: 1110 PATIENT DISCHARGED TO: Ambulatory patient, left [place] department area. A Diagnostic radioactive procedure has taken place, with no further precautions necessary other than routine body substance precautions. More information regarding radiation safety can be found usingthis link: [email or web address] SIGNATURE: RT Deloris(R) PATIENT NAME: Chinyere Alberts DATE: July 03, 2023 TIME: 12:23 PM PAGER/CONTACT #: documented in this encounterUpper [facility]11-03-2023 History of Present illness Narrative* Ralf Giles MD - 06/26/2023 1:33 PM EDT HISTORY AND PHYSICAL Chinyere Alberts 1935 REFERRING PHYSICIAN: Jeffy Fields MD CHIEF COMPLAINT: Consult (LLQ PAIN) HPI: The patient is a 88 year old female with a complaint of Abdominal pain, llq Ruq pain (primary encounter diagnosis). Seen in [facility] on 06/08/23 for LLQ abdominal pain. Sent to [facility] ER CT abdomen 06/08/23 showed no definite acute or significant abnormality. Taking Miralax and having frequent BM's. No blood No diarrhea No nausea or vomiting Pain does not correlate to anything specific she eats or drinks. Given Rx for Dicyclomine. Has taken a couple of times. Last saw Gail on 04/07/23 X-ray abdomen on 04/07/23 showed moderate to large stool burden. Has not followed back up with Gail. she refers to there is nothing to follow up on. States they did nothing for her. Has seen gi at [facility]. Wanted to see someone else. Had been referred to Dr. Cuevas but cannot get intothem. When she has been in her scans already show a large stool burden. Also had seen gi for ? Slight extra hepatic bile duct dilatation. The patient is being seen by me today at the request of Dr. Jeffy Fields MD for my opinion and advice regarding Abdominal pain, llq Ruq pain (primary encounter diagnosis). PAST MEDICAL HISTORY Diagnosis Date Anemia of chronic renal failure, stage 2 (mild) 05/19/2006 Arthritis left foot and right thumb Diabetes mellitus (HCC) Esophageal reflux Essential hypertension, benign Essential tremor GERD (gastroesophageal reflux disease) Heart murmur Hiatal hernia 08/25/2018 Other and unspecified hyperlipidemia Senile osteoporosis Unspecified hypothyroidism PAST SURGICAL HISTORY Procedure Laterality Date ADENOIDECTOMY PRIMARY <AGE 14 Adenoidectomy APPENDECTOMY open COLONOSCOPY 11/28/2016 [place]- diverticulosis. ESOPHAGOGASTRODUODENOSCOPY TRANSORAL DIAGNOSTIC 08/25/2018 EGD NEUROPLASTY &/TRANSPOS MEDIAN NRV CARPAL TUNNE Carpal tunnel decomp- left PAST SURGICAL HISTORY OF salivary gland removed- chronic infection PAST SURGICAL HISTORY OF 06/03/2012 right trigger finger releases 1-4 PAST SURGICAL HISTORY OF 06/23/2014 left ring trigger finger release RHINP PRIM LAT&ALAR CRTLGS&/ELVTN NASAL TI Rhinoplasty RHYTIDECTOMY NECK W/PLATYSMAL TIGHTENING eye brow lift TONSILLECTOMY PRIMARY/SECONDARY <AGE 14 Tonsillectomy TOTAL ABDOMINAL HYSTERECT W/WO RMVL TUBE OVARY Hysterectomy, DHIRAJ TOTAL KNEE REPLACEMENT 02/25/2023 Current Outpatient Medications Medication Sig polyethylene glycol 3350 (MIRALAX) 17 gram/dose powder Take by mouth as needed for constipation. Dissolve dose in 4 - 8 ounces of liquid and take as directed. rOPINIRole (REQUIP) 0.5 mg tablet one tablet at noon and 4PM, 1 tablets at 8PM and 1 tablet at midnight. pregabalin (LYRICA) 50 mg capsule Take 1 capsule by mouth three times daily for 180 days. (As directed) losartan (COZAAR) 50 mg tablet Take 1 tablet by mouth once daily. levothyroxine (SYNTHROID) 50 mcg tablet Take 1 tablet by mouth once daily 6 out of 7 days per week. omeprazole (PRILOSEC) 20 mg capsule Take one tablet by mouth q day simvastatin (ZOCOR) 40 mg tablet Take 1 tablet by mouth daily at bedtime. TURMERIC ORAL Take 1 capsule by mouth once daily. calcium carbonate/vitamin D3 (CALCIUM WITH VITAMIN D ORAL) Take 1 tablet by mouth once daily. IPRATROPIUM BROMIDE NASAL Use 1 Leburn in the nose twice daily. hypromellose(GENTEAL MODERATE 0.3 % EYE DROPS) To left eye ASPIRIN 81 MG TAB Take one (1) tablet daily . Current Facility-Administered Medications Medication Dose Route Frequency perflutren lipid microspheres 1.3 mL in NaCl (PF) 0.9% 10 mL injection (DEFINITY) INTRAVENOUS DIRECTED PRN sodium chloride 0.9 % (flush) 10 mL (BD POSIFLUSH) 10 mL INTRAVENOUS DIRECTED PRN ALLERGIES: Genteal Eye Ointment [Other], Asa [Salicylates], Flonase [Fluticasone], and Sulfa (Sulfonamide Antibiotics) PERSONAL HISTORY: Social History Tobacco Use Smoking status: Never Smokeless tobacco: Never Vaping Use Vaping Use: Never used Substance Use Topics Alcohol use: No Drug use: No FAMILY HISTORY: FAMILY HISTORY Problem Relation Age of Onset Heart Mother massive HI, in her 70's other (Other) Father unknown Alzheimer's Disease Sister Cancer Maternal Grandmother GI CANCER Heart Maternal Aunt Diabetes Maternal Aunt Heart Maternal Uncle Colon Cancer No Family History REVIEW OF SYMPTOMS: The review of systems data was entered by the nurse and reviewed by hi Nursing Notes: Reynaldo Borden LPN 06/24/2023 8:53 AM Signed REVIEW OF SYSTEMS: General: The patient denies fatigue, NOTES weight loss, denies weight gain, denies feeling hot, anddenies feelings of cold. Eyes: The patient denies glaucoma, denies eye injury/surgery, wears glasses or contacts. Ear/Nose/Throat: The patient NOTES allergies, denies hayfever, denies ear infections, and denies bloody noses. Cardiovascular: The patient denies chest pain, denies heart disease, denies high blood pressure,denies cardiac stent, denies prior heart attack, NOTES irregular heart beat, NOTES high cholesterol, denies poor circulation, denies heart failure, other cardiac issues, denies claudication, denies cold feet, denies peripheral arterial stent. Respiratory: The patient denies tuberculosis, denies pneumonia, denies frequent cough, denies pulmonary embolism, denies shortness of breath, and denies coughing up blood. Gastrointestinal: The patient denies difficulty swallowing, NOTES acid reflux, denies ulcers, denies vomiting, denies jaundice/hepatitis, NOTES gallbladder problems, denies black or tarry stools, denies hemorrhoids, denies bleeding from rectum, denies diverticulitis, denies constipation, denies diarrhea, denies loss of stool control, and denies hernias. Kidney/Bladder: The patient denies kidney stones, denies urine infections, and denies bloody urine. Skin: The patient denies a history of skin cancer, denies bleeding/changing moles, and denies a history of skin rash. Neurologic: The patient denies a history of epilepsy/convulsions, denies headaches, denies head/spinal injuries, and denies stroke/TIA. Psychiatric: The patient denies psychiatric medications, denies depression, and denies voices, denies substance abuse. Endocrine: The patient denies thyroid disorders, NOTES diabetes, and denies hormonal problems. Hematologic: The patient denies a history of bruising, denies bleeding, and denies anemia, denies blood clots. Infections: The patient denies a history of measles and mumps, denies rheumatic fever, and denies sexually transmitted diseases. Musculoskeletal: The patient denies back pain/injury, denies back problems, denies sciatica, deniesknee/foot trouble, NOTES arthritis, or denies gout. When was patient's last Mammogram screening? 2022 Last Colonoscopy: 2016 Reynaldo Borden LPN PHYSICAL EXAMINATION: General: The patient is 88 year old female, well nourished, well hydrated in no acute distress. Thepatient is oriented to time, place, and person. VITALS: Blood pressure 130/72, pulse 88, temperature (!) 35.9 C (96.6 F), height 154.9 cm (5' 1), weight 48.4 kg (106 lb 9.6 oz), SpO2 99 %. HEENT: Normal cephalic, ataumatic, pupils are equally round, sclera are anicteric, mucous membranesare moist, oropharynx is clear. Neck has no masses, asymmetry or lymphadenopathy. Thyroid is unremarkable. Respiratory: Clear to auscultation and percussion. Normal respiratory excursion and pattern. Cardiac: Examination is regular rate and rhythm. Abdominal exam: Soft, nontender, with no palpable masses. No hepatosplenomegaly. No palpable hernias. Rectal exam: exam deferred Extremities: no clubbing, cyanosis or edema. No adenopathy. Other: LABORATORY VALUES: As Noted RADIOLOGIC STUDIES: As Noted Assessment IMPRESSION: Abdominal pain, llq Ruq pain (primary encounter diagnosis) PLAN: This point I want to investigate the gallbladder with a HIDA scan with ejection fraction. I do not feel any hernias on her at this time in the left lower quadrant. I believe her discomfort hereis more than likely going to be constipated related. However the right upper quadrant pain certainly could be related to a poorly functioning gallbladder. Diagnoses: (R10.11) RUQ pain (primary encounter diagnosis) (R10.32) Abdominal pain, LLQ My findings have been communicated to Dr. Jeffy Fields MD via shared medical record. This note will be forwarded to Dr. Jeffy Fields MD. Return to Clinic: The patient is instructed to follow-up with me after the testing has been completed. Ralf Giles III, MD documented in this encounterUpper [facility] Center11-01-2023 Nurse Note* Reynaldo BordenDIONNE - 06/24/2023 8:49 AM EDT REVIEW OF SYSTEMS: General: The patient denies fatigue, NOTES weight loss, denies weight gain, denies feeling hot, anddenies feelings of cold. Eyes: The patient denies glaucoma, denies eye injury/surgery, wears glasses or contacts. Ear/Nose/Throat: The patient NOTES allergies, denies hayfever, denies ear infections, and denies bloody noses. Cardiovascular: The patient denies chest pain, denies heart disease, denies high blood pressure,denies cardiac stent, denies prior heart attack, NOTES irregular heart beat, NOTES high cholesterol, denies poor circulation, denies heart failure, other cardiac issues, denies claudication, denies cold feet, denies peripheral arterial stent. Respiratory: The patient denies tuberculosis, denies pneumonia, denies frequent cough, denies pulmonary embolism, denies shortness of breath, and denies coughing up blood. Gastrointestinal: The patient denies difficulty swallowing, NOTES acid reflux, denies ulcers, denies vomiting, denies jaundice/hepatitis, NOTES gallbladder problems, denies black or tarry stools, denies hemorrhoids, denies bleeding from rectum, denies diverticulitis, denies constipation, denies diarrhea, denies loss of stool control, and denies hernias. Kidney/Bladder: The patient denies kidney stones, denies urine infections, and denies bloody urine. Skin: The patient denies a history of skin cancer, denies bleeding/changing moles, and denies a history of skin rash. Neurologic: The patient denies a history of epilepsy/convulsions, denies headaches, denies head/spinal injuries, and denies stroke/TIA. Psychiatric: The patient denies psychiatric medications, denies depression, and denies voices, denies substance abuse. Endocrine: The patient denies thyroid disorders, NOTES diabetes, and denies hormonal problems. Hematologic: The patient denies a history of bruising, denies bleeding, and denies anemia, denies blood clots. Infections: The patient denies a history of measles and mumps, denies rheumatic fever, and denies sexually transmitted diseases. Musculoskeletal: The patient denies back pain/injury, denies back problems, denies sciatica, deniesknee/foot trouble, NOTES arthritis, or denies gout. When was patient's last Mammogram screening? 2022 Last Colonoscopy: 2016 Reynaldo Borden LPN documented in this encounter[facility]23 History of Present illness Narrative* Jeffy Fields MD - 06/23/2023 3:40 PM EDT Patient presents with: Follow Up HPI: Patient presents today for office visit for 3 month follow up. Seen in [facility] on 06/08/23 for LLQ abdominal pain. Sent to [facility] ER CT abdomen 06/08/23 showed no definite acute or significant abnormality. Taking Miralax and having frequent BM's. No blood No diarrhea No nausea or vomiting Pain does not correlate to anything specific she eats or drinks. Given Rx for Dicyclomine. Has taken a couple of times. Last saw Gail on 04/07/23 X-ray abdomen on 04/07/23 showed moderate to large stool burden. Has not followed back up with Gail. she refers to there is nothing to follow up on. States they did nothing for her. Has seen gi at [facility]. Wanted to see someone else. Had been referred to Dr. Cuevas but cannot get intothem. When she has been in her scans already show a large stool burden. Also had seen gi for ? Slight extra hepatic bile duct dilatation. HTN: Continues on Losartan 50 mg daily Was here for BP check 2 months ago See OV 04/22/23: Manual reading 147/64 BP Chas Serial, Digital BP Readings, Taken 2 Minutes Apart, Average Readings: 136/64 Pulse: 57 Reason for blood pressure check - Last BP elevated Not monitoring BP at home Denies chest pain and shortness of breath No headaches or dizziness No palpitations No syncope No edema MEDICATIONS: Current Outpatient Medications Medication Sig polyethylene glycol 3350 (MIRALAX) 17 gram/dose powder Take by mouth as needed for constipation. Dissolve dose in 4 - 8 ounces of liquid and take as directed. rOPINIRole (REQUIP) 0.5 mg tablet one tablet at noon and 4PM, 1 tablets at 8PM and 1 tablet at midnight. pregabalin (LYRICA) 50 mg capsule Take 1 capsule by mouth three times daily for 180 days. (As directed) losartan (COZAAR) 50 mg tablet Take 1 tablet by mouth once daily. levothyroxine (SYNTHROID) 50 mcg tablet Take 1 tablet by mouth once daily 6 out of 7 days per week. omeprazole (PRILOSEC) 20 mg capsule Take one tablet by mouth q day simvastatin (ZOCOR) 40 mg tablet Take 1 tablet by mouth daily at bedtime. TURMERIC ORAL Take 1 capsule by mouth once daily. calcium carbonate/vitamin D3 (CALCIUM WITH VITAMIN D ORAL) Take 1 tablet by mouth once daily. IPRATROPIUM BROMIDE NASAL Use 1 Leburn in the nose twice daily. hypromellose(GENTEAL MODERATE 0.3 % EYE DROPS) To left eye ASPIRIN 81 MG TAB Take one (1) tablet daily . Current Facility-Administered Medications Medication Dose Route Frequency perflutren lipid microspheres 1.3 mL in NaCl (PF) 0.9% 10 mL injection (DEFINITY) INTRAVENOUS DIRECTED PRN sodium chloride 0.9 % (flush) 10 mL (BD POSIFLUSH) 10 mL INTRAVENOUS DIRECTED PRN ALLERGIES: ALLERGIES Allergen Reactions Genteal Eye Ointmen* Itching Itching,redness, and watery eyes Asa [Salicylates] ringing in ears Flonase [Fluticason* Other: See Comments gets jittery Sulfa (Sulfonamide * Hives PAST MEDICAL HISTORY Diagnosis Date Anemia of chronic renal failure, stage 2 (mild) 05/19/2006 Arthritis left foot and right thumb Diabetes mellitus (HCC) Esophageal reflux Essential hypertension, benign Essential tremor GERD (gastroesophageal reflux disease) Heart murmur Hiatal hernia 08/25/2018 Other and unspecified hyperlipidemia Senile osteoporosis Unspecified hypothyroidism PAST SURGICAL HISTORY Procedure Laterality Date ADENOIDECTOMY PRIMARY <AGE 14 Adenoidectomy APPENDECTOMY open COLONOSCOPY 11/28/2016 [facility]- diverticulosis. ESOPHAGOGASTRODUODENOSCOPY TRANSORAL DIAGNOSTIC 08/25/2018 EGD NEUROPLASTY &/TRANSPOS MEDIAN NRV CARPAL TUNNE Carpal tunnel decomp- left PAST SURGICAL HISTORY OF salivary gland removed- chronic infection PAST SURGICAL HISTORY OF 06/03/2012 right trigger finger releases 1-4 PAST SURGICAL HISTORY OF 06/23/2014 left ring trigger finger release RHINP PRIM LAT&ALAR CRTLGS&/ELVTN NASAL TI Rhinoplasty RHYTIDECTOMY NECK W/PLATYSMAL TIGHTENING eye brow lift TONSILLECTOMY PRIMARY/SECONDARY <AGE 14 Tonsillectomy TOTAL ABDOMINAL HYSTERECT W/WO RMVL TUBE OVARY Hysterectomy, DHIRAJ TOTAL KNEE REPLACEMENT 02/25/2023 FAMILY HISTORY Problem Relation Age of Onset Heart Mother massive HI, in her 70's other (Other) Father unknown Alzheimer's Disease Sister Cancer Maternal Grandmother GI CANCER Heart Maternal Aunt Diabetes Maternal Aunt Heart Maternal Uncle Colon Cancer No Family History Social History Tobacco Use Smoking status: Never Smokeless tobacco: Never Vaping Use Vaping Use: Never used Substance Use Topics Alcohol use: No Drug use: No Reviewed current medications, allergies, past medical history, surgical history, family history andsocial history today. REVIEW OF SYSTEMS All other reviewed and negative other than HPI. HEALTH MAINTENANCE: Reviewed health maintenance issues today and recommended the following in detail. DTaP,Tdap,Td Vaccine(2 - Td or Tdap) due on 05/23/2023 VITALS: BP 142/60 Pulse 68 Ht 154.9 cm (5' 1) Wt 48 kg (105 lb 12.8 oz) SpO2 99% BMI 19.99 kg/m Last 4 Encounter Wt Readings: Date: Wt: 06/08/2023 47.5 kg (104 lb 12.8 oz) 04/21/2023 47.8 kg (105 lb 6.4 oz) 04/07/2023 46.7 kg (103 lb) 03/24/2023 47.3 kg (104 lb 3.2 oz) PHYSICAL EXAMINATION: General appearance: Well appearing, alert, in no acute distress, well-hydrated, well nourished. Skin: Skin color, texture, turgor normal, no suspicious rashes or lesions Head: Normocephalic, no masses, lesions, tenderness or abnormalities Lungs: Lungs clear to auscultation. No wheezing, rhonchi, rales Heart: RRR without murmur, gallop, or rubs. No ectopy Abdomen: Normal abdominal exam, Abdomen soft, non-tender. Bowel sounds normal. No masses, organomegaly Extremities: No deformities, edema, skin discoloration, clubbing or cyanosis. Good capillary refill. ASSESSMENT/PLAN: 1. Restless legs syndrome - ICD9: 333.94, ICD10: G25.81 (primary diagnosis) - stable. 2. Essential hypertension, benign - ICD9: 401.1, ICD10: I10 - Controlled - Continue current medications - CBC + DIFF - BASIC METABOLIC PNL 3. Mixed hyperlipidemia - ICD9: 272.2, ICD10: E78.2 - Controlled - Continue current medications 4. Essential tremor - ICD9: 333.1, ICD10: G25.0 - no change. 5. Nonrheumatic mitral valve regurgitation - ICD9: 424.0, ICD10: I34.0 - no change. 6. Gastroesophageal reflux disease with esophagitis, unspecified whether hemorrhage - ICD9: 530.11,ICD10: K21.00 - stable. 7. Stage 3 chronic kidney disease, unspecified whether stage 3a or 3b CKD (HCC) - ICD9: 585.3, ICD10: N18.30 - stable 8. Hypothyroidism, unspecified type - ICD9: 244.9, ICD10: E03.9 - doing well 9. 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 10. Prediabetes - ICD9: 790.29, ICD10: R73.03 - follow labs. - HGB A1C 11. Hypogammaglobulinemia (HCC) - ICD9: 279.00, ICD10: D80.1 Stable. 12. Acute constipation - ICD9: 564.00, ICD10: K59.00 - advised to take her miralax daily. She is not. See surgery. Red flags for re- assessment reviewed with patient in detail. Red flags for re-assessment reviewed with patient in detail. 13. Abdominal pain, LLQ - ICD9: 789.04, ICD10: R10.32 - CONSULT TO GENERAL SURGERY 14. Right lower quadrant abdominal pain - ICD9: 789.03, ICD10: R10.31 - CONSULT TO GENERAL SURGERY Jeffy Fields MD documented in this encounterUpper [facility]10-16-2023 Discharge summary Author Riccardo Diggs [facility] June 08, 2023 6:19pm Note Date/Time June 08, 2023 3 :51pm [facility] Medical Records Department [address] [place] [address] Emergency Department Summary 06/08/23 MR#: [id number] Acct: [id number] Name: CHINYERE KRISHNA Rep #:[id number] : [id number] 88 From: Riccardo Diggs MD PCP: Dr. Jeffy Fields MD Status:REG E R Location: ED HPI HPI - GI History of Present Illness Chief Complaint: Abd Pain Informant: patient Narrative Narrative: Patient presents with a lower quadrant pain. Patient has been having pain off and on since December of this year. She was seen approximately January. She had CT scan that showed some constipation. She has been on MiraLAX since. She has regular bowel movements now. Yesterday she had a bowel movement and she has had a notable increase in her pain in the left lower quadrant ever since the bowel movement. She moved her bowels again today. No blood. No diarrhea. She has no nausea and vomiting. She cannot correlate anything to worsen this pains that she is eating or drinking. She has never hadfevers or chills. She did have some pain in her left flank yesterday but she states she twisted and moved and it seemed to get better. She denies urinary symptoms. She denies known history of diverticular disease or kidney stones. She is not on any blood thinners other than baby aspirin. She has had complete hysterectomy and appendectomy in the past. PFSH [facility] Medical History Abnormal echocardiogram Actinic keratitis CKD (chronic kidney disease) stage 3, GFR 30-59 ml/min Dyspareunia due to medical condition in female Essential hypertension GERD (gastroesophageal reflux disease) Hiatal hernia Hypothyroidism Mixed hyperlipidemia Non-rheumatic mitral regurgitation Psoriasis Rosacea Seborrheic keratosis Urinary tract infection Home Medications aspirin 81 mg chewable tablet 81 mg PO DAILY 11/08/18 [History Last Taken Unknown] calcium citrate 200 mg (950 mg) tablet (Calcitrate) 200 mg PO DAILY 11/08/18 [History Last Taken Unknown] dextran 70-hypromellose 0.1 %-0.3 % eye drops (GenTeal Tears Mild) drp ophthalmic (eye) 11/08/18 [History Last Taken Unknown] omeprazole 20 mg capsule,delayed release 20 mg PO DAILY 11/08/18 [History Last Taken Unknown] simvastatin 40 mg tablet 40 mg PO QHS 11/08/18 [History Last Taken Unknown] losartan 50 mg tablet 50 mg PO DAILY 01/27/21 [History Last Taken Unknown] ipratropium bromide 21 mcg (0.03 %) nasal spray 2 spray intranasal BID 02/11/23 [History Last Taken Unknown] pregabalin 50 mg capsule 50 mg PO BID 02/11/23 [History Last Taken Unknown] ropinirole 0.5 mg tablet 0.5 mg PO TID 02/11/23 [History Last Taken Unknown] turmeric 400 mg capsule 400 mg PO DAILY 02/11/23 [History Last Taken Unknown] amoxicillin 500 mg capsule 2,000 mg PO ONCE PRN 02/23/23 [History Last Taken Unknown] levothyroxine 50 mcg tablet 50 mcg PO 6XW 02/23/23 [History Last Taken Unknown] polyethylene glycol 3350 17 gram/dose oral powder (Laxative PEG 3350) 17 g PO DAILY #119 grams 02/28/23 [Rx Last Taken Unknown] dicyclomine 10 mg capsule 10 mg PO TID PRN abdominal pain #20 caps 06/08/23 [Rx Last Taken Unknown] Allergy/AdvReac Type Severity Reaction Status Date / Time hypromellose Allergy Severe Rednesss, Verified 02/28/23 10:27 [From GenTeal (hypromellose)] watering, pain in eye NSAIDS (Non-Steroidal Allergy Mild Other Verified 02/28/23 10:27 Anti-Inflamma Sulfa (Sulfonamide Allergy Rash Verified 02/28/23 10:27 Antibiotics) fluticasone [From Flonase] AdvReac Unknown jittery Verified 02/28/23 10:27 salicylates AdvReac Unknown ringing in Verified 02/28/23 10:27 ears Family History Mother Myocardial infarction, Onset Age: 70 Surgical History History of appendectomy History of right knee joint replacement (~2021) S/P DHIRAJ (total abdominal hysterectomy) Social History Smoking Status: Never smoker alcohol intake: never substance use type: does not use caffeine: No what type of physical activity do you participate in: walking seatbelt use: always do you feel safe at home: Yes additional social history: Magdi- Retired ROS ROS ED ROS Narrative A complete review of systems was performed and is negative except as documented in the history of present illness. Some specific details below. Constitutional: No recent fevers or chills. EYE: No visual complaints or pain. ENT: No difficulty swallowing. No swelling. No pain. History of GERD but no current symptoms. CV: No chest pain or palpitations. Respiratory: No dyspnea. No hemoptysis. No difficulty taking breaths. GI: Please see history of present illness. : No frequency dysuria or hematuria. No history of stones. Musculoskeletal: No recent trauma. See history of present illness. Skin: No rash. Nondiaphoretic. Neuro: No weakness or numbness. Endocrine: No polyuria or polydipsia. EXAM Physical Exam Narrative Exam Narrative: CONSTITUTIONAL: Patient is nontoxic in appearance. The patient looks comfortable. HEENT: No notable trauma. Mucous membranes moist. No sinus tenderness. No indication of pain with swallowing. EYES: No conjunctival injection. No icterus. CARDIOVASCULAR: Regular rate. Regular rhythm. No notable murmur. No JVD. RESPIRATORY: No respiratory distress. Breathing is unlabored. No wheezes. No rhonchi. No rales. No pain with a deep breath. GASTROINTESTINAL: Not distended. Bowel sounds are normal. She does have very mild tenderness to left lower quadrant. But no rebound or guarding. No mass. She states she feels like the area is full but I do not actually feel a mass. GENITOURINARY: No tenderness over the bladder. No CVA tenderness at this time. MUSCULOSKELETAL: Atraumatic. No peripheral edema. No cord. No tenderness along the deep venous system. No asymmetry. NEUROLOGICAL: Patient is alert and appropriate. No focal deficit noted. SKIN: No noted rashes. No diaphoresis. PSYCHIATRIC: Patient is calm. Mood is appropriate. Const Vital Signs: 06/08/23 15:18 06/08/23 15:41 06/08/23 17:06 Temperature 97.4 F L Temperature Source Temporal Pulse Rate 81 Respiratory Rate 16 18 18 Blood Pressure 196/74 H 209/63 H 171/78 H Blood Pressure Mean 114 111 109 Pulse Ox 100 Oxygen Delivery Method Room Air Room Air Room Air MDM MDM MDM Narrative Medical decision making narrative: Patient CBC shows minimally low white count which is nonspecific. Hemoglobin isnormal. Platelets are just meant low at 132,000. Patient's electrolytes show no marked abnormalities. Creatinine is actually well-preserved. Urine is clean. My independent interpretation of her CT shows some slight increased stool and fluid but no straw patient. No diverticulitis. Final reading is no definite acute uterus skin abnormality seen. Patient needs follow-up. We will try a low-dose of Bentyl to see if this will help her when she has symptoms. She is still eating and drinking well. No urinary symptoms. She has not had a colonoscopy in about 6 years which is not that long ago for her age. I will refer her to Dr. Cuevas. She asked if I could call the office and leave her information which I will do. I did call and leave a message with the patient's name date of and phone number. Lab Data Attestation: I reviewed the patient's lab results. Labs: Laboratory Results - last 24 hr 06/08/23 06/08/23 15:56 16:05 WBC 3.0 L RBC 4.47 Hgb 13.3 Hct 40.5 MCV 90.6 MCH 29.8 MCHC 32.8 RDW Std Deviation 41.0 RDW Coeff of Fatimah 12.4 Plt Count 132 L MPV 10.2 Immature Gran % (Auto) 0.000 Neut % (Auto) 65.6 Lymph % (Auto) 20.9 O'Brien % (Auto) 6.1 Eos % (Auto) 6.4 H Baso % (Auto) 1.0 Absolute Neuts (auto) 2.0 Absolute Lymphs (auto) 0.62 L Nucleated RBC % 0 Sodium 137 Potassium 4.2 Chloride 104 Carbon Dioxide 28.0 Anion Gap 5 BUN 25 H Creatinine 1.02 Estim Creat Clear Calc 28.49 Est GFR (MDRD) Af Amer 66 Est GFR (MDRD) Non-Af 55 L BUN/Creatinine Ratio 24.5 H Glucose 109 H Calcium 9.6 Urine Color Yellow Urine Clarity Clear Urine pH 6.0 Ur Specific Muse 1.010 Urine Protein Negative Urine Glucose (UA) Normal Urine Ketones Negative Urine Occult Blood 25 H Urine Nitrite Negative Urine Bilirubin Negative Urine Urobilinogen Normal Ur Leukocyte Esterase Negative Urine RBC 0 SEEN Urine WBC 0 SEEN Ur Squamous Epith Cells 0 SEEN Urine Bacteria 0 SEEN Urine Mucus 0 SEEN Radiography Diagnostic Testing: Clinical Impression(s) from Imaging Studies Abdomen/Pelvis CT 06/08/23 15:46 IMPRESSION: No definite acute or significant abnormality seen. Electronically Signed: Miguel Aguilar MD at 17:15 EDT , Discharge Plan Triage Chief Complaint: Abd Pain ED Provider: Riccardo Diggs Dx/Rx/DC Orders Clinical Impression: Abdominal pain Instructions: ED Abdominal Pain Unkn Cause Fem Prescriptions: New dicyclomine 10 mg capsule 10 mg PO TID PRN (Reason: abdominal pain) Qty: 20 0RF No Action calcium citrate [Calcitrate] 200 mg (950 mg) tablet 200 mg PO DAILY simvastatin 40 mg tablet 40 mg PO QHS omeprazole 20 mg capsule,delayed release(DR/EC) 20 mg PO DAILY aspirin 81 mg tablet,chewable 81 mg PO DAILY GenTeal Tears Mild 0.1-0.3 % drops OPHTHALMIC levothyroxine 50 mcg tablet 50 mcg PO 6XW amoxicillin 500 mg capsule 2,000 mg PO ONCE PRN Rx Instructions: Prior to dental visits pregabalin 50 mg capsule 50 mg PO BID ropinirole 0.5 mg tablet 0.5 mg PO TID turmeric 400 mg capsule 400 mg PO DAILY ipratropium bromide 21 mcg (0.03 %) spray,non-aerosol 2 spray intranasal BID Rx Instructions: administer into each nostril losartan 50 mg tablet 50 mg PO DAILY Patient Comments: TAKE 1 TABLET BY MOUTH EVERY DAY polyethylene glycol 3350 [Laxative PEG 3350] 17 gram/dose powder 17 g PO DAILY Qty: 119 0RF Rx Instructions: 4 capfuls with 24 oz of water/beverage on first day Primary Care Provider: Jeffy Fields Referrals: FriendGurvinder DO [Med Staff - Active Staff] - As soon as possible Jeffy Fields MD [Primary Care Provider] - Disposition Disposition: Home, Self Care What to do if you have Problems For any increased pain, shortness of breath, bleeding, nausea or vomiting, chestpain, or any unexpected problems, contact your Primary Care Provider. Call [facility] ([phone]) or report to the closest Emergency Room. Call 911 if necessary. 06/08/231818 <Electronically signed by Riccardo Diggs MD> Cosigner Signature (if applicable): CC: Dr. Jeffy Fields MD ~ Signed [facility] Work Phone: [phone] 115-890910-05-2023 Miscellaneous Notes* Telephone Encounter - Clover Dixon Ma - 05/28/2023 8:57 AM EDT Pt notified. Confirmed that it was left breast as note states right. Transferred to [facility] to set up imaging in 6 months. Clover Dixon Ma * Telephone Encounter - Lorraine Zamora PA-C - 05/27/2023 2:11 PM EDT Radiologist wants recheck in 6 months with diagnostic mammo and ultrasound on the right breast. 0.3 cm lesion in the right breast is likely benign. Telephone on 05/27/23 [facility] LEFT US BREAST LTD LEFT Please schedule 6 months out Rip Camejo PA-C documented in this encounterCleveland [id number] History of Present illness Narrative* Beatriz Frey RDMS - 05/27/2023 10:30 AM EDT Radiology Service Progress Note PATIENT NAME: Chinyere Alberts DATE OF SERVICE: May 27, 2023 TIME: 3:07 PM PATIENT IDENTITY VERIFICATION COMPLETED USING TWO (2) IDENTIFIERS: Name and Date of confirmedby patient verbally. FALL SCREENING: Has the patient had 2 falls in the last year or 1 fall with injury or currently using an Ambulatory Assistive Device (Walker, Cane, Wheelchair, Crutches, etc.)? Yes, Patient High Riskfor Falls What interventions were put in place to prevent falls during this visit? Increased Observations by Caregivers PATIENT GENDER DATA: Female. status: : No status: NO. PATIENT RELEVANT IMPLANT DATA REVIEWED: Not Applicable RADIOLOGY DEPARTMENT: Ultrasound PERIPHERAL IV DATA: Not applicable SIGNED BY: Beatriz Frey RDMS May 27, 2023 3:07 PM documented in this encounterUpper [facility]10-04-2023 History of Present illness Narrative* Tete Lagunas RT(R) - 05/27/2023 10:00 AM EDT Radiology Service Progress Note PATIENT NAME: Chinyere Alberts DATE OF SERVICE: May 27, 2023 TIME: 9:52 AM PATIENT IDENTITY VERIFICATION COMPLETED USING TWO (2) IDENTIFIERS: Name and Date of confirmedby patient verbally. FALL SCREENING: Has the patient had 2 falls in the last year or 1 fall with injury or currently using an Ambulatory Assistive Device (Walker, Cane, Wheelchair, Crutches, etc.)? No PATIENT GENDER DATA: Female. status: : No status: NO. PATIENT RELEVANT IMPLANT DATA REVIEWED: Not Applicable RADIOLOGY DEPARTMENT: Mammography PERIPHERAL IV DATA: Not applicable SIGNED BY: RT Sherrell(Reyes) May 27, 2023 9:52 AM documented in this encounterUpper Valley [facility] Center09-07-2023 Miscellaneous Notes* Telephone Encounter - Sadaf Finn, RN - 04/30/2023 4:29 PM EDT Pt called and is notified of providers results and instructions. Pt voices understanding. Pt put through to [phone] to schedule diagnostic and US of L breast. Sadaf Finn RN * Telephone Encounter - Pretty Juarez - 04/30/2023 11:14 AM EDT Message left for patient to return call for results. Pretty Juarez * Telephone Encounter - Lorraine Zamora PA-C - 04/30/2023 6:10 AM EDT mammogram was inconclusive. Radiologist is recommending additional views. Telephone on 04/30/23 [facility] LEFT US BREAST LTD LEFT Thanks, Rip Zamora PA-C documented in this encounterUpper Valley Medical Center08-31-2023 Miscellaneous Notes* Letter - Coordinator, Mammography - 04/23/2023 1:17 PM EDT April 24, 2023 PID: [id number] Chinyere Alberts [address] [place] [address] Dear Ms. Vasile Alberts, Your recent breast imaging exam on 04/22/2023 showed a possible finding that requires additional imaging studies for a complete evaluation. Most such findings are probably benign (not cancer). If you have a healthcare provider who ordered/prescribed your screening mammogram: Please call [phone] or EXT: [phone] to schedule an appointment for your additional imaging (if youhave not already done so). If you DO NOT have a healthcare provider (ie you did not have an order/prescription for your screening mammogram): Please call to schedule an appointment for your additional imaging (if you have not already done so). You must have an order/prescription from your physician when calling to schedule your appointment. If your order/prescription is not electronic, you must bring the hard copy with you on the day of your exam to avoid delays. Your imaging studies and reports are kept [facility] as part of your permanent medical record, and are available for your continuing care. Thank you for allowing us to help in meeting your health care needs. Sincerely, Dr. Carey Interpreting Radiologist [facility] (Additional imaging) documented in this encounterUpper Valley Medical Center08-30-2023 History of Present illness Narrative* Kerri Alexander Mammo Tech - 04/22/2023 2:40 PM EDT Radiology Service Progress Note PATIENT NAME: Chinyere Alberts DATE OF SERVICE: April 22, 2023 TIME: 2:36 PM PATIENT IDENTITY VERIFICATION COMPLETED USING TWO (2) IDENTIFIERS: Name and Date of confirmedby patient verbally. FALL SCREENING: Has the patient had 2 falls in the last year or 1 fall with injury or currently using an Ambulatory Assistive Device (Walker, Cane, Wheelchair, Crutches, etc.)? No PATIENT GENDER DATA: Female. status: : No status: NO. PATIENT RELEVANT IMPLANT DATA REVIEWED: Not Applicable RADIOLOGY DEPARTMENT: Mammography PERIPHERAL IV DATA: Not applicable SIGNED BY: Brooke Lowe April 22, 2023 2:36 PM documented in this encounterUpper Valley Medical Center08-30-2023 History of Present illness Narrative* Maggy Narvaez - 04/22/2023 9:25 AM EDT Manual reading 147/64 BP Chas Serial, Digital BP Readings, Taken 2 Minutes Apart, Average Readings: 136/64 Pulse: 57 Reason for blood pressure check - Last BP elevated Patient is: Taking medication as prescribed Yes Took medication today Yes Experiencing side effects No Recommendations Continue taking medications as prescribed Follow-up No Pt has been identified by name and birthdate: Yes Allergies reviewed: Yes Latex allergy: no. Medication - prescribed and OTC reviewed and updated: Yes Do you need any prescription refills prior to your next visit: No Health Maintenance: Reviewed and up to date Maggy Narvaez documented in this encounterUpper Valley Medical Center08-29-2023 Miscellaneous Notes* Telephone Encounter - Tete Galvin PA-C - 04/21/2023 6:48 PM EDT Reviewed. Please inform pt fibroscan is showing mild fatty liver with no significant fibrosis. Recommend repeat fibroscan in 2-3 years for surveillance. Tete Galvin PA-C * Telephone Encounter - Idalia [place] - 04/21/2023 3:01 PM EDT Hi Lacy Epstein Scan is scanned in epic. Thanks. documented in this [facility] Miscellaneous Notes* Telephone Encounter - Radha Devi PA-C - 04/21/2023 10:35 AM EDT Please inform patient that after discussion with Dr. Clark, will try taking quarter tablet of Klonopin at night for sleep. Should she have any worsening instability, falls to stop taking his medication and reach out. It may be difficult to get an exact quarter tablet as the medication is small, butgetting close is fine. documented in this encounter[facility]-29-2023 Instructions* Patient Instructions* Radha Devi PA-C - 04/21/2023 9:29 AM EDT Will reach out about regimen change Follow up in three months with sleep provider documented in this encounter[facility]23 History of Present illness Narrative* Radha Devi PA-C - 04/21/2023 9:07 AM EDT ESTABLISHED PATIENT VISIT Last visit: 02.20.[address] Clark Assessment and Plan: ASSESSMENT/PLAN: 1. RLS (restless legs syndrome) - ICD9: 333.94, ICD10: G25.81 (primary diagnosis) Doing well with regards to symptoms but side effects on Klonopin as above. She would like to stop the Klonopin at this time. Advised that uncertain to what degree Klonopin is controlling dream enactment behaviors, and needs to monitor for exacerbation of such symptoms following discontinuation of Klonopin. For RLS control will not change Requip dosing but will add Lyrica such that she will be taking 50mg three times daily but now with an additional dose an midnight. Note, based on renal function likely total dose for day is between 150-300mg per day rather than 150mg daily and thus need to closely monitor for side effects. 2. 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 D/c Klonopin today. If symptoms return, can add melatonin to Lyrica and Requip. 3. Cardiac murmur - ICD9: 785.2, ICD10: R01.1 New/worse. Patient already scheduled to see Dr. Farrar. Jeffy Clark MD CHIEF COMPLAINT: follow up HISTORY OF PRESENT ILLNESS: Chinyere Alberts is a 88 year old female, BMI 19.92 kg/m2 with a PMH significant for essential tremor, restless leg syndrome, hypertension, hyperlipidemia, mitral valve regurgitation, GERD, chronic kidney disease, hypothyroidism, prediabetes. Patient was last seen 02/20/[address] Clark. Patient doing well. Was taking requip 0.5mg at noon, 1630, 2030, and MN. Noted that klonopin makes her feel drugged but still takes at bedtime. Wanted tosubstitute with lyrica. Need to monitor for exacerbations of dream enactment behavior. Added [id number] tid (added extra dose at midnight). Since last appointment, patient notes that her restless leg syndrome has improved in some ways and worsened in others. Notes it seems to help sensation in her legs, but she will have bouts of restless leg throughout the day. Last anywhere from 20 minutes to a few hours. Notes that she had never hadrestless leg on Sundays before and now she is experienced this while at restoration. Notes that her primary concern is her difficulty with sleep. Notes that her dreams have worsened since stopping the Klonopin. Notes that she will have scary or weird dreams that wake her up and she is unable to go back to sleep. Unsure if the worsening sleep is causing the restless legs to worsen as well. Notes that since increasing the Lyrica she has been fatigued throughout the day, but again is unsure if this is secondary to her difficulty with sleeping. Notes that she is taking the Lyrica at noon, bedtime and again at midnight. Since last visit she has also developed some abdominal pain, but this is being followed by her primary care provider. No other new symptoms. Does note that her balance has significantly improved since stopping the Klonopin. No falls since last visit. REVIEW OF SYSTEMS GENERAL:No weight loss, malaise or fevers. HEENT:Negative for frequent or significant headaches, No changes in hearing or vision, no nose bleeds or other nasal problems NECK:Negative for lumps, goiter, pain and significant neck swelling RESPIRATORY: Negative for cough, wheezing or shortness of breath. CARDIOVASCULAR: Negative for chest pain, leg swelling or palpitations. GASTROINTESTINAL: Negative for abdominal discomfort, blood in stools or black stools or change in bowel habits GENITOURINARY: No history of dysuria, frequency or incontinence MUSCULOSKELETAL: Negative for joint pain or swelling, back pain or muscle pain. NEUROLOGIC:Negative for focal numbness or weakness, headaches and dizziness or syncope, vision changes, speech/languag changes - EXCEPT that as per HPI above. SKIN:Negative for lesions, rash, and itching. PSYCHIATRIC: Negative for sleep disturbance, mood disorder and recent psychosocial stressors. HEMATOLOGIC/LYMPHATIC/IMMUNOLOGIC:Negative for prolonged bleeding, bruising easily or swollen nodes. ENDOCRINE: Negative for cold or heat intolerance, polyuria, polydipsia and goiter. The remainder of the ROS was reviewed and is negative. LAB/IMAGING: Those performed since patient's last visit have been reviewed. None MEDICATIONS: polyethylene glycol 3350 (MIRALAX) 17 gram/dose powder^Take by mouth as needed for constipation. Dissolve dose in 4 - 8 ounces of liquid and take as directed.^Disp: ^Rfl: rOPINIRole (REQUIP) 0.5 mg tablet^one tablet at noon and 4PM, 1 tablets at 8PM and 1 tablet at midnight.^Disp: 360 tablet^Rfl: 3 pregabalin (LYRICA) 50 mg capsule^Take 1 capsule by mouth three times daily for 180 days. (As directed)^Disp: 270 capsule^Rfl: 1 losartan (COZAAR) 50 mg tablet^Take 1 tablet by mouth once daily.^Disp: 90 tablet^Rfl: 1 levothyroxine (SYNTHROID) 50 mcg tablet^Take 1 tablet by mouth once daily 6 out of 7 days per week.^Disp: 90 tablet^Rfl: 1 omeprazole (PRILOSEC) 20 mg capsule^Take one tablet by mouth q day^Disp: 90 capsule^Rfl: 3 simvastatin (ZOCOR) 40 mg tablet^Take 1 tablet by mouth daily at bedtime.^Disp: 90 tablet^Rfl: 3 TURMERIC ORAL^Take 1 capsule by mouth once daily.^Disp: ^Rfl: calcium carbonate/vitamin D3 (CALCIUM WITH VITAMIN D ORAL)^Take 1 tablet by mouth once daily.^Disp:^Rfl: IPRATROPIUM BROMIDE NASAL^Use 1 Leburn in the nose twice daily.^Disp: ^Rfl: hypromellose(GENTEAL MODERATE 0.3 % EYE DROPS)^To left eye^Disp: 0^Rfl: 0 ASPIRIN 81 MG TAB^Take one (1) tablet daily .^Disp: ^Rfl: 0 HISTORIES PAST MEDICAL HISTORY Diagnosis Date Anemia of chronic renal failure, stage 2 (mild) 05/19/2006 Arthritis left foot and right thumb Diabetes mellitus (HCC) Esophageal reflux Essential hypertension, benign Essential tremor GERD (gastroesophageal reflux disease) Heart murmur Hiatal hernia 08/25/2018 Other and unspecified hyperlipidemia Senile osteoporosis Unspecified hypothyroidism FAMILY HISTORY Problem Relation Age of Onset Heart Mother massive HI, in her 70's other (Other) Father unknown Alzheimer's Disease Sister Cancer Maternal Grandmother GI CANCER Heart Maternal Aunt Diabetes Maternal Aunt Heart Maternal Uncle Colon Cancer No Family History SOCIAL HISTORY Social History Tobacco Use Smoking status: Never Smokeless tobacco: Never Vaping Use Vaping Use: Never used Substance Use Topics Alcohol use: No Drug use: No PHYSICAL EXAMINATION BP 142/64 Pulse 61 Resp 16 Wt 47.8 kg (105 lb 6.4 oz) SpO2 100% BMI 19.92 kg/m GENERAL EXAM: General appearance: NAD, pleasant. HEENT: NC/AT, nasal congestion absent, no oral lesions, membranes moist. NECK: No masses, supple. Lungs: Breathing comfortably Extr: Moves all extremities without difficulty Skin: Cool to touch. No rash. NEUROLOGICAL EXAM: General: Awake, alert, oriented x3 (person,place,time), speech fluent, no dysarthria; comprehension, naming, repetition intact. Short and nursing home memory intact. CN: PERRL, EOMI and without nystagmus, VFF to confrontation, facial sensation and strength are normal and symmetric, hearing is intact to finger rub bilaterally, palate and tongue movements are intact and symmetric. SCM and trapezius strength normal. Motor: Normal tone, bulk and strength (5/5) bilaterally (throughout extremities x4). Reflexes: 2/4 and symmetric Coordination: FNF intact. No tremors. Sensation: LT, No evidence of neglect. Gait: Narrow based and stable with normal stride and arm swing. Assessment and Plan: ASSESSMENT/PLAN: 1. 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 Does note that she is fatigued throughout the day, but attributes this to having poor sleep as well. No other side effects with increasing Lyrica. States that she has never had restless legs during the day on Thursday before and has not have them at restoration. No other new symptoms. Does note that it does wake her up sometimes at night. Regarding her sleep, notes that this has significantly worsened since stopping the Klonopin. Statesthat she is having strange and occasionally scary dreams that wake her up anywhere from 230 to 4:30AM and she has difficulty falling back asleep likely this poor sleep is contributing to her worsening restless leg syndrome. After discussion with collaborating surgeon, Dr. Clark, will try increasing Klonopin to quarter tablet a day to manage sleep. 3. Chronic kidney disease, unspecified CKD stage - ICD9: 585.9, ICD10: N18.9 We will obtain repeat CMP due to history of kidney disease and increase in Lyrica. Patient also reporting fatigue. Patient agreeable to treatment plan of care at this time, all questions were answered. Patient follow-up with the provider in 3 months or sooner should any symptoms change or worsen. Radha Devi PA-C I spent a total of 25 minutes on the date of the service which included preparing to see the patient, [id number] patient care, completing clinical documentation, obtaining and/or reviewing separately obtained history, performing a medically appropriate examination, counseling and educating the pat ient/family/caregiver, and ordering medications, tests, or procedures. This document has been created with the use of voice recognition technology. It may contain inaccuracies: (e.g. misspellings, inaccurate syntax or word sense) that have escaped review. documented in this encounter[facility]23 History of Present illness Narrative* Tete Galvin PA-C - 04/07/2023 8:43 AM EDT Images from the original note were not included. CHIEF COMPLAINT: Patient presents with: Constipation: BM this morning hard stools she is taking Miralax as needed. Dull intermittent RUQ and LLQ pain HPI: Chinyere Alberts is a 88 year old female with PMHx positive for DM, GERD, who presents for Constipation (BM this morning hard stools she is taking Miralax as needed. Dull intermittent RUQ and LLQ pain ). Surg hx positive for appendectomy, hysterectomy. Admits to abd pain since 12/2022. Abd pain is in RUQ, LLQ, 2/10, unchanged with a BM. Taking Miralax PRN for constipation with some relief. Daily half-cap usage caused diarrhea. Reports intentional weight loss of 10-12 lbs. Prilosec 20 mg daily working well for heartburn/indigestion. Denies N/V, fevers. CT abd 02/28/2023 RUQ US 01/2023 IMPRESSION: Slightly coarse liver echotexture, a nonspecific finding. Please correlate with LFTs Slight extrahepatic bile duct dilatation. Correlation with clinical and laboratory data is recommended. EGD 2019 medium HH CONVERTED FINAL DIAGNOSIS 1. Stomach, antrum, biopsy (A) - Gastric antral mucosa with no significant diagnostic alteration. - No morphologic evidence of Helicobacter pylori. 2. Esophagogastric junction, biopsy (B) - Squamous esophageal mucosa with basal zone hyperplasia and intraepithelial eosinophils (up to 2 eosinophils per HPF) consistent with reflux esophagitis. - Inflamed cardiofundic-type mucosa with reactive epithelial changes. - No morphologic evidence of intestinal metaplasia or dysplasia. Component Latest Ref Rng & Units 01/23/2023 WBC 3.70 - 11.00 k/uL 4.94 RBC 3.90 - 5.20 m/uL 4.34 Hemoglobin 11.5 - 15.5 g/dL 13.4 Hematocrit 36.0 - 46.0 % 40.7 MCV 80.0 - 100.0 fL 93.8 MCH 26.0 - 34.0 pg 30.9 MCHC 30.5 - 36.0 g/dL 32.9 RDW-CV 11.5 - 15.0 % 11.9 Platelet Count 150 - 400 k/uL 157 MPV 9.0 - 12.7 fL 11.0 Neut% % 71.7 Abs Neut (ANC) 1.45 - 7.50 k/uL 3.54 Lymph% % 16.2 Abs Lymph 1.00 - 4.00 k/uL 0.80 (L) O'Brien% % 6.7 Abs O'Brien <0.87 k/uL 0.33 Eosin% % 4.0 Abs Eosin <0.46 k/uL 0.20 Baso% % 1.2 Abs Baso <0.11 k/uL 0.06 Immature Gran % % 0.2 IMMATURE GRANS (ABS) <0.10 k/uL <0.03 NRBC /100 WBC 0.0 Absolute nRBC <0.01 k/uL <0.01 DTYPE Auto Protein, Total 6.3 - 8.0 g/dL 6.4 Albumin 3.9 - 4.9 g/dL 4.3 Calcium 8.5 - 10.2 mg/dL 9.7 Bilirubin, Total 0.2 - 1.3 mg/dL 0.3 Alkaline Phosphatase 34 - 123 U/L 68 AST 13 - 35 U/L 21 ALT 7 - 38 U/L 12 Glucose 74 - 99 mg/dL 103 (H) BUN 7 - 21 mg/dL 26 (H) Creatinine 0.58 - 0.96 mg/dL 1.21 (H) Sodium 136 - 144 mmol/L 137 Potassium 3.7 - 5.1 mmol/L 4.7 Chloride 97 - 105 mmol/L 100 CO2 22 - 30 mmol/L 25 Anion Gap 9 - 18 mmol/L 12 eGFR >=60 mL/min/1.73m 44 (L) Hemoglobin A1C 4.3 - 5.6 % 5.6 Estimated Average Glucose mg/dL 114 Lipase 16 - 61 U/L 42 TSH 0.270 - 4.200 mIU/L 0.751 Record Review: [facility] / Outside records reviewed. PAST MEDICAL HISTORY Diagnosis Date Anemia of chronic renal failure, stage 2 (mild) 05/19/2006 Arthritis left foot and right thumb Diabetes mellitus (HCC) Esophageal reflux Essential hypertension, benign Essential tremor GERD (gastroesophageal reflux disease) Heart murmur Hiatal hernia 08/25/2018 Other and unspecified hyperlipidemia Senile osteoporosis Unspecified hypothyroidism PAST SURGICAL HISTORY Procedure Laterality Date ADENOIDECTOMY PRIMARY <AGE 14 Adenoidectomy APPENDECTOMY open COLONOSCOPY 11/28/2016 [facility]- diverticulosis. ESOPHAGOGASTRODUODENOSCOPY TRANSORAL DIAGNOSTIC 08/25/2018 EGD NEUROPLASTY &/TRANSPOS MEDIAN NRV CARPAL TUNNE Carpal tunnel decomp- left PAST SURGICAL HISTORY OF salivary gland removed- chronic infection PAST SURGICAL HISTORY OF 06/03/2012 right trigger finger releases 1-4 PAST SURGICAL HISTORY OF 06/23/2014 left ring trigger finger release RHINP PRIM LAT&ALAR CRTLGS&/ELVTN NASAL TI Rhinoplasty RHYTIDECTOMY NECK W/PLATYSMAL TIGHTENING eye brow lift TONSILLECTOMY PRIMARY/SECONDARY <AGE 14 Tonsillectomy TOTAL ABDOMINAL HYSTERECT W/WO RMVL TUBE OVARY Hysterectomy, DHIRAJ TOTAL KNEE REPLACEMENT 02/25/2023 Allergies: ALLERGIES Allergen Reactions Genteal Eye Ointmen* Itching Itching,redness, and watery eyes Asa [Salicylates] ringing in ears Flonase [Fluticason* Other: See Comments gets jittery Sulfa (Sulfonamide * Hives Medications: polyethylene glycol 3350 (MIRALAX) 17 gram/dose powder^Take by mouth as needed for constipation. Dissolve dose in 4 - 8 ounces of liquid and take as directed.^Disp: ^Rfl: rOPINIRole (REQUIP) 0.5 mg tablet^one tablet at noon and 4PM, 1 tablets at 8PM and 1 tablet at midnight.^Disp: 360 tablet^Rfl: 3 pregabalin (LYRICA) 50 mg capsule^Take 1 capsule by mouth three times daily for 180 days. (As directed)^Disp: 270 capsule^Rfl: 1 losartan (COZAAR) 50 mg tablet^Take 1 tablet by mouth once daily.^Disp: 90 tablet^Rfl: 1 levothyroxine (SYNTHROID) 50 mcg tablet^Take 1 tablet by mouth once daily 6 out of 7 days per week.^Disp: 90 tablet^Rfl: 1 omeprazole (PRILOSEC) 20 mg capsule^Take one tablet by mouth q day^Disp: 90 capsule^Rfl: 3 simvastatin (ZOCOR) 40 mg tablet^Take 1 tablet by mouth daily at bedtime.^Disp: 90 tablet^Rfl: 3 TURMERIC ORAL^Take 1 capsule by mouth once daily.^Disp: ^Rfl: calcium carbonate/vitamin D3 (CALCIUM WITH VITAMIN D ORAL)^Take 1 tablet by mouth once daily.^Disp:^Rfl: IPRATROPIUM BROMIDE NASAL^Use 1 Leburn in the nose twice daily.^Disp: ^Rfl: hypromellose(GENTEAL MODERATE 0.3 % EYE DROPS)^To left eye^Disp: 0^Rfl: 0 ASPIRIN 81 MG TAB^Take one (1) tablet daily .^Disp: ^Rfl: 0 FAMILY HISTORY Problem Relation Age of Onset Heart Mother massive HI, in her 70's other (Other) Father unknown Alzheimer's Disease Sister Cancer Maternal Grandmother GI CANCER Heart Maternal Aunt Diabetes Maternal Aunt Heart Maternal Uncle Colon Cancer No Family History Employer And Job Title: None on file Years Of Education Completed: Not specified Marital Status: with no children Social History Tobacco Use Smoking status: Never Smokeless tobacco: Never Vaping Use Vaping Use: Never used Substance Use Topics Alcohol use: No Drug use: No Review of Systems: Review of Systems Gastrointestinal: Positive for abdominal pain and constipation. All other systems reviewed and are negative. Are you taking any blood thinners? No Physical Examination: BP 150/60 Pulse 72 Ht 154.9 cm (5' 1) Wt 46.7 kg (103 lb) BMI 19.46 kg/m Physical Exam Constitutional: General: She is not in acute distress. Appearance: Normal appearance. She is normal weight. She is not ill-appearing, toxic-appearing or diaphoretic. HENT: Head: Normocephalic and atraumatic. Nose: Nose normal. Eyes: General: No scleral icterus. Right eye: No discharge. Left eye: No discharge. Extraocular Movements: Extraocular movements intact. Conjunctiva/sclera: Conjunctivae normal. Pupils: Pupils are equal, round, and reactive to light. Cardiovascular: Rate and Rhythm: Normal rate and regular rhythm. Pulses: Normal pulses. Heart sounds: Murmur heard. No friction rub. No gallop. Pulmonary: Effort: No respiratory distress. Breath sounds: Normal breath sounds. No stridor. No wheezing, rhonchi or rales. Chest: Chest wall: No tenderness. Abdominal: General: Abdomen is flat. Bowel sounds are normal. There is no distension. Palpations: Abdomen is soft. There is no mass. Tenderness: There is no abdominal tenderness. There is no right CVA tenderness, left CVA tenderness, guarding or rebound. Hernia: No hernia is present. Musculoskeletal: General: Normal range of motion. Cervical back: Normal range of motion and neck supple. Skin: General: Skin is warm and dry. Neurological: General: No focal deficit present. Mental Status: She is alert and oriented to person, place, and time. Psychiatric: Mood and Affect: Mood normal. Behavior: Behavior normal. 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 Ileus (HCC) - XR ABDOMEN 1V SUPINE; Future - Small bowel ileus seen on CT 02/28 - States more regular usage of Miralax is helping. She is waiting until constipation occurs to takethe med as regular daily usage caused diarrhea. Advised taking half-cap every other day as tolerated to see if this helps her go on a more daily basis - Continue plenty of fluid intake - Obtain KUB to assess current stool burden, consider MRI abd to assess previous noted ductal dilation on US pending results of KUB/pts clinical improvement 2. Abnormal US (ultrasound) of abdomen 3. Fatty metamorphosis of liver - DDI VIBRATION CONTROLLED TRANSIENT ELASTOGRAPHY (VCTE) - Check fibroscan to assess for cirrhosis - Pt reports she would like to wait on this until further workup for abd pain is obtained 4. Hiatal hernia with GERD - Prilosec 20 mg daily working well for GERD I spent a total of 20 minutes on the date of the service which included preparing to see the patient, [id number] patient care, completing clinical documentation, obtaining and/or reviewing separately obtained history, performing a medically appropriate examination, counseling and educating the pat ient/family/caregiver, ordering medications, tests, or procedures, communicating with other HCPs (not separately reported), independently interpreting results (not separately reported), communicatingresults to the patient/family/caregiver, and care coordination (not separately reported). Tete Galvin PA-C April 07, 2023 9:10 AM documented in this encounter[facility] History of Past illness Narrative* Problem Noted Date Diagnosed Date Resolved Date Other autoinflammatory syndromes 03/24/2023 09/23/2023 Left lower quadrant pain 03/05/2023 06/23/2023 Counseling regarding advance d directives and goals of care 10/29/2021 09/23/2023 Overview: dpoa- surrogate is Eneida Salguero, then Gastroesophageal reflux disease 08/20/2018 10/07/2018 Overview: Added automatically from request for surgery [id number] Epigastric pain 08/20/2018 04/19/2019 Overview: Added automatically from request for surgery [id number] Hyperlipidemia 10/19/2015 03/31/2017 Trigger ring finger of left hand 06/05/2014 04/19/2019 Perioral dermatitis 03/22/2014 03/31/20 17 Acne rosacea 03/22/2014 05/12/2022 Postinflammatory skin changes 03/22/2014 04/20/2015 Perianal dermatitis 08/22/2013 05/12/20 22 Anal burning 03/23/2013 04/20/2015 Irritated//Inflamed Seborrheic Keratosis 07/06/2012 04/20/2015 Milial cyst 07/06/2012 04/20/2015 Other seborrheic keratosis 07/06/2012 0 04/20/2015 Solar lentigo 07/06/2012 04/20/2015 Milia 07/06/2012 04/20/2015 Trigger middle finger of right hand 05/31/2012 04/19/2019 Trigger ring finger of right hand 05/31/2012 04/19/2019 Trigger little finger of left hand 05/03/2012 04/19/2019 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 Other seborrheic dermatitis 03/03/2012 04/20/2015 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 04/20/2015 Actinic skin damage 03/03/2012 04/20/20 15 Trigger middle finger of left hand 09/22/2011 04/19/2019 Trigger index finger of right hand 09/22/2011 04/19/2019 Trigger thumb of right hand 09/22/2011 04/19/2019 Psoriatic arthritis 02/13/2011 05/12/20 22 Paresthesia of skin 07/13/2007 06/05/20 17 Enthesopathy of unspecified site 07/12/2007 04/19/2019 Pain in limb 06/01/2007 09/30/2016 Dizziness and giddiness 02/11/2007 10/08/2006 Hypercalcemia 05/19/2006 05/24/2007 Anemia of chronic renal fail ure, stage 2 (mild) 05/19/2006 01/23/2023 Disorder of kidney and ureter 05/19/2006 05/12/2022 URETHRITIS OTHER SPECIFIED 01/13/2006 0 05/12/2022 Esophageal reflux 11/20/2005 04/19/2019 documented as of this encounter (statuses as of 09/25/2023) [facility] of Past illness Narrative* Problem Noted Date Diagnosed Date Resolved Date Other autoinflammatory syndromes 03/24/2023 09/23/2023 Left lower quadrant pain 03/05/2023 06/23/2023 Counseling regarding advance d directives and goals of care 10/29/2021 09/23/2023 Overview: dpoa- surrogate is Eneida Salguero, then Gastroesophageal reflux disease 08/20/2018 10/07/2018 Overview: Added automatically from request for surgery [id number] Epigastric pain 08/20/2018 04/19/2019 Overview: Added automatically from request for surgery [id number] Hyperlipidemia 10/19/2015 03/31/2017 Trigger ring finger of left hand 06/05/2014 04/19/2019 Perioral dermatitis 03/22/2014 03/31/20 17 Acne rosacea 03/22/2014 05/12/2022 Postinflammatory skin changes 03/22/2014 04/20/2015 Perianal dermatitis 08/22/2013 05/12/20 22 Anal burning 03/23/2013 04/20/2015 Irritated//Inflamed Seborrheic Keratosis 07/06/2012 04/20/2015 Milial cyst 07/06/2012 04/20/2015 Other seborrheic keratosis 07/06/2012 0 04/20/2015 Solar lentigo 07/06/2012 04/20/2015 Milia 07/06/2012 04/20/2015 Trigger middle finger of right hand 05/31/2012 04/19/2019 Trigger ring finger of right hand 05/31/2012 04/19/2019 Trigger little finger of left hand 05/03/2012 04/19/2019 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 Other seborrheic dermatitis 03/03/2012 04/20/2015 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 04/20/2015 Actinic skin damage 03/03/2012 04/20/20 15 Trigger middle finger of left hand 09/22/2011 04/19/2019 Trigger index finger of right hand 09/22/2011 04/19/2019 Trigger thumb of right hand 09/22/2011 04/19/2019 Psoriatic arthritis 02/13/2011 05/12/20 22 Paresthesia of skin 07/13/2007 06/05/20 17 Enthesopathy of unspecified site 07/12/2007 04/19/2019 Pain in limb 06/01/2007 09/30/2016 Dizziness and giddiness 02/11/2007 10/0 08/2006 Hypercalcemia 05/19/2006 05/24/2007 Anemia of chronic renal fail ure, stage 2 (mild) 05/19/2006 01/23/2023 Disorder of kidney and ureter 05/19/2006 05/12/2022 URETHRITIS OTHER SPECIFIED 01/13/2006 0 05/12/2022 Esophageal reflux 11/20/2005 04/19/2019 documented as of this encounter (statuses as of 10/01/2023) [facility] of Past illness Narrative* Problem Noted Date Diagnosed Date Resolved Date Other autoinflammatory syndromes 03/24/2023 09/23/2023 Left lower quadrant pain 03/05/2023 06/23/2023 Counseling regarding advance d directives and goals of care 10/29/2021 09/23/2023 Overview: dpoa- surrogate is Eneida Salguero, then Gastroesophageal reflux disease 08/20/2018 10/07/2018 Overview: Added automatically from request for surgery [id number] Epigastric pain 08/20/2018 04/19/2019 Overview: Added automatically from request for surgery [id number] Hyperlipidemia 10/19/2015 03/31/2017 Trigger ring finger of left hand 06/05/2014 04/19/2019 Perioral dermatitis 03/22/2014 03/31/20 17 Acne rosacea 03/22/2014 05/12/2022 Postinflammatory skin changes 03/22/2014 04/20/2015 Perianal dermatitis 08/22/2013 05/12/20 22 Anal burning 03/23/2013 04/20/2015 Irritated//Inflamed Seborrheic Keratosis 07/06/2012 04/20/2015 Milial cyst 07/06/2012 04/20/2015 Other seborrheic keratosis 07/06/2012 0 04/20/2015 Solar lentigo 07/06/2012 04/20/2015 Milia 07/06/2012 04/20/2015 Trigger middle finger of right hand 05/31/2012 04/19/2019 Trigger ring finger of right hand 05/31/2012 04/19/2019 Trigger little finger of left hand 05/03/2012 04/19/2019 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 Other seborrheic dermatitis 03/03/2012 04/20/2015 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 04/20/2015 Actinic skin damage 03/03/2012 04/20/20 15 Trigger middle finger of left hand 09/22/2011 04/19/2019 Trigger index finger of right hand 09/22/2011 04/19/2019 Trigger thumb of right hand 09/22/2011 04/19/2019 Psoriatic arthritis 02/13/2011 05/12/20 22 Paresthesia of skin 07/13/2007 06/05/20 17 Enthesopathy of unspecified site 07/12/2007 04/19/2019 Pain in limb 06/01/2007 09/30/2016 Dizziness and giddiness 02/11/2007 10/0 08/2006 Hypercalcemia 05/19/2006 05/24/2007 Anemia of chronic renal fail ure, stage 2 (mild) 05/19/2006 01/23/2023 Disorder of kidney and ureter 05/19/2006 05/12/2022 URETHRITIS OTHER SPECIFIED 01/13/2006 0 05/12/2022 Esophageal reflux 11/20/2005 04/19/2019 documented as of this encounter (statuses as of 10/09/2023) [facility] History of Past illness Narrative* Problem Noted Date Diagnosed Date Resolved Date Other autoinflammatory syndromes 03/24/2023 09/23/2023 Counseling regarding advance d directives and goals of care 10/29/2021 09/23/2023 Overview: dpoa- surrogate is Eneida Salguero, then Gastroesophageal reflux disease 08/20/2018 10/07/2018 Overview: Added automatically from request for surgery [id number] Epigastric pain 08/20/2018 04/19/2019 Overview: Added automatically from request for surgery [id number] Hyperlipidemia 10/19/2015 03/31/2017 Trigger ring finger of left hand 06/05/2014 04/19/2019 Perioral dermatitis 03/22/2014 03/31/20 17 Acne rosacea 03/22/2014 05/12/2022 Postinflammatory skin changes 03/22/2014 04/20/2015 Perianal dermatitis 08/22/2013 05/12/20 22 Anal burning 03/23/2013 04/20/2015 Irritated//Inflamed Seborrheic Keratosis 07/06/2012 04/20/2015 Milial cyst 07/06/2012 04/20/2015 Other seborrheic keratosis 07/06/2012 0 04/20/2015 Solar lentigo 07/06/2012 04/20/2015 Milia 07/06/2012 04/20/2015 Trigger middle finger of right hand 05/31/2012 04/19/2019 Trigger ring finger of right hand 05/31/2012 04/19/2019 Trigger little finger of left hand 05/03/2012 04/19/2019 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 Other seborrheic dermatitis 03/03/2012 04/20/2015 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 04/20/2015 Actinic skin damage 03/03/2012 04/20/20 15 Trigger middle finger of left hand 09/22/2011 04/19/2019 Trigger index finger of right hand 09/22/2011 04/19/2019 Trigger thumb of right hand 09/22/2011 04/19/2019 Psoriatic arthritis 02/13/2011 05/12/20 22 Paresthesia of skin 07/13/2007 06/05/20 17 Enthesopathy of unspecified site 07/12/2007 04/19/2019 Pain in limb 06/01/2007 09/30/2016 Dizziness and giddiness 02/11/2007 1008/2006 Hypercalcemia 05/19/2006 05/24/2007 Anemia of chronic renal fail ure, stage 2 (mild) 05/19/2006 01/23/2023 Disorder of kidney and ureter 05/19/2006 05/12/2022 URETHRITIS OTHER SPECIFIED 01/13/2006 0 05/12/2022 Esophageal reflux 11/20/2005 04/19/2019 documented as of this encounter (statuses as of 10/16/2023) [facility] History of Past illness Narrative* Problem Noted Date Diagnosed Date Resolved Date Other autoinflammatory syndromes 03/24/2023 09/23/2023 Counseling regarding advance d directives and goals of care 10/29/2021 09/23/2023 Overview: dpoa- surrogate is Eneida Salguero, then Gastroesophageal reflux disease 08/20/2018 10/07/2018 Overview: Added automatically from request for surgery [id number] Epigastric pain 08/20/2018 04/19/2019 Overview: Added automatically from request for surgery [id number] Hyperlipidemia 10/19/2015 03/31/2017 Trigger ring finger of left hand 06/05/2014 04/19/2019 Perioral dermatitis 03/22/2014 03/31/20 17 Acne rosacea 03/22/2014 05/12/2022 Postinflammatory skin changes 03/22/2014 04/20/2015 Perianal dermatitis 08/22/2013 05/12/20 22 Anal burning 03/23/2013 04/20/2015 Irritated//Inflamed Seborrheic Keratosis 07/06/2012 04/20/2015 Milial cyst 07/06/2012 04/20/2015 Other seborrheic keratosis 07/06/2012 0 04/20/2015 Solar lentigo 07/06/2012 04/20/2015 Milia 07/06/2012 04/20/2015 Trigger middle finger of right hand 05/31/2012 04/19/2019 Trigger ring finger of right hand 05/31/2012 04/19/2019 Trigger little finger of left hand 05/03/2012 04/19/2019 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 Other seborrheic dermatitis 03/03/2012 04/20/2015 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 04/20/2015 Actinic skin damage 03/03/2012 04/20/20 15 Trigger middle finger of left hand 09/22/2011 04/19/2019 Trigger index finger of right hand 09/22/2011 04/19/2019 Trigger thumb of right hand 09/22/2011 04/19/2019 Psoriatic arthritis 02/13/2011 05/12/20 22 Paresthesia of skin 07/13/2007 06/05/20 17 Enthesopathy of unspecified site 07/12/2007 04/19/2019 Pain in limb 06/01/2007 09/30/2016 Dizziness and giddiness 02/11/2007 10/0 08/2006 Hypercalcemia 05/19/2006 05/24/2007 Anemia of chronic renal fail ure, stage 2 (mild) 05/19/2006 01/23/2023 Disorder of kidney and ureter 05/19/2006 05/12/2022 URETHRITIS OTHER SPECIFIED 01/13/2006 0 05/12/2022 Esophageal reflux 11/20/2005 04/19/2019 documented as of this encounter (statuses as of 11/24/2023) [facility] History of Past illness Narrative* Problem Noted Date Diagnosed Date Resolved Date Other autoinflammatory syndromes 03/24/2023 09/23/2023 Counseling regarding advance d directives and goals of care 10/29/2021 09/23/2023 Overview: dpoa- surrogate is Eneida Salguero, then Gastroesophageal reflux disease 08/20/2018 10/07/2018 Overview: Added automatically from request for surgery [id number] Epigastric pain 08/20/2018 04/19/2019 Overview: Added automatically from request for surgery [id number] Hyperlipidemia 10/19/2015 03/31/2017 Trigger ring finger of left hand 06/05/2014 04/19/2019 Perioral dermatitis 03/22/2014 03/31/20 17 Acne rosacea 03/22/2014 05/12/2022 Postinflammatory skin changes 03/22/2014 04/20/2015 Perianal dermatitis 08/22/2013 05/12/20 22 Anal burning 03/23/2013 04/20/2015 Irritated//Inflamed Seborrheic Keratosis 07/06/2012 04/20/2015 Milial cyst 07/06/2012 04/20/2015 Other seborrheic keratosis 07/06/2012 0 04/20/2015 Solar lentigo 07/06/2012 04/20/2015 Milia 07/06/2012 04/20/2015 Trigger middle finger of right hand 05/31/2012 04/19/2019 Trigger ring finger of right hand 05/31/2012 04/19/2019 Trigger little finger of left hand 05/03/2012 04/19/2019 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 Other seborrheic dermatitis 03/03/2012 04/20/2015 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 04/20/2015 Actinic skin damage 03/03/2012 04/20/20 15 Trigger middle finger of left hand 09/22/2011 04/19/2019 Trigger index finger of right hand 09/22/2011 04/19/2019 Trigger thumb of right hand 09/22/2011 04/19/2019 Psoriatic arthritis 02/13/2011 05/12/20 22 Paresthesia of skin 07/13/2007 06/05/20 17 Enthesopathy of unspecified site 07/12/2007 04/19/2019 Pain in limb 06/01/2007 09/30/2016 Dizziness and giddiness 02/11/2007 1008/2006 Hypercalcemia 05/19/2006 05/24/2007 Anemia of chronic renal fail ure, stage 2 (mild) 05/19/2006 01/23/2023 Disorder of kidney and ureter 05/19/2006 05/12/2022 URETHRITIS OTHER SPECIFIED 01/13/2006 0 05/12/2022 Esophageal reflux 11/20/2005 04/19/2019 documented as of this encounter (statuses as of 12/02/2023) [facility] History of Past illness Narrative* Problem Noted Date Diagnosed Date Resolved Date Other autoinflammatory syndromes 03/24/2023 09/23/2023 Counseling regarding advance d directives and goals of care 10/29/2021 09/23/2023 Overview: dpoa- surrogate is Eneida Salguero, then Gastroesophageal reflux disease 08/20/2018 10/07/2018 Overview: Added automatically from request for surgery [id number] Epigastric pain 08/20/2018 04/19/2019 Overview: Added automatically from request for surgery [id number] Hyperlipidemia 10/19/2015 03/31/2017 Trigger ring finger of left hand 06/05/2014 04/19/2019 Perioral dermatitis 03/22/2014 03/31/20 17 Acne rosacea 03/22/2014 05/12/2022 Postinflammatory skin changes 03/22/2014 04/20/2015 Perianal dermatitis 08/22/2013 05/12/20 22 Anal burning 03/23/2013 04/20/2015 Irritated//Inflamed Seborrheic Keratosis 07/06/2012 04/20/2015 Milial cyst 07/06/2012 04/20/2015 Other seborrheic keratosis 07/06/2012 0 04/20/2015 Solar lentigo 07/06/2012 04/20/2015 Milia 07/06/2012 04/20/2015 Trigger middle finger of right hand 05/31/2012 04/19/2019 Trigger ring finger of right hand 05/31/2012 04/19/2019 Trigger little finger of left hand 05/03/2012 04/19/2019 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 Other seborrheic dermatitis 03/03/2012 04/20/2015 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 04/20/2015 Actinic skin damage 03/03/2012 04/20/20 15 Trigger middle finger of left hand 09/22/2011 04/19/2019 Trigger index finger of right hand 09/22/2011 04/19/2019 Trigger thumb of right hand 09/22/2011 04/19/2019 Psoriatic arthritis 02/13/2011 05/12/20 22 Paresthesia of skin 07/13/2007 06/05/20 17 Enthesopathy of unspecified site 07/12/2007 04/19/2019 Pain in limb 06/01/2007 09/30/2016 Dizziness and giddiness 02/11/2007 10/08/2006 Hypercalcemia 05/19/2006 05/24/2007 Anemia of chronic renal fail ure, stage 2 (mild) 05/19/2006 01/23/2023 Disorder of kidney and ureter 05/19/2006 05/12/2022 URETHRITIS OTHER SPECIFIED 01/13/2006 0 05/12/2022 Esophageal reflux 11/20/2005 04/19/2019 documented as of this encounter (statuses as of 12/02/2023) [facility] History of Past illness Narrative* Problem Noted Date Diagnosed Date Resolved Date Other autoinflammatory syndromes 03/24/2023 09/23/2023 Counseling regarding advance d directives and goals of care 10/29/2021 09/23/2023 Overview: dpoa- surrogate is Eneida Salguero, then Gastroesophageal reflux disease 08/20/2018 10/07/2018 Overview: Added automatically from request for surgery [id number] Epigastric pain 08/20/2018 04/19/2019 Overview: Added automatically from request for surgery [id number] Hyperlipidemia 10/19/2015 03/31/2017 Trigger ring finger of left hand 06/05/2014 04/19/2019 Perioral dermatitis 03/22/2014 03/31/20 17 Acne rosacea 03/22/2014 05/12/2022 Postinflammatory skin changes 03/22/2014 04/20/2015 Perianal dermatitis 08/22/2013 05/12/20 22 Anal burning 03/23/2013 04/20/2015 Irritated//Inflamed Seborrheic Keratosis 07/06/2012 04/20/2015 Milial cyst 07/06/2012 04/20/2015 Other seborrheic keratosis 07/06/2012 0 04/20/2015 Solar lentigo 07/06/2012 04/20/2015 Milia 07/06/2012 04/20/2015 Trigger middle finger of right hand 05/31/2012 04/19/2019 Trigger ring finger of right hand 05/31/2012 04/19/2019 Trigger little finger of left hand 05/03/2012 04/19/2019 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 Other seborrheic dermatitis 03/03/2012 04/20/2015 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 04/20/2015 Actinic skin damage 03/03/2012 04/20/20 15 Trigger middle finger of left hand 09/22/2011 04/19/2019 Trigger index finger of right hand 09/22/2011 04/19/2019 Trigger thumb of right hand 09/22/2011 04/19/2019 Psoriatic arthritis 02/13/2011 05/12/20 22 Paresthesia of skin 07/13/2007 06/05/20 17 Enthesopathy of unspecified site 07/12/2007 04/19/2019 Pain in limb 06/01/2007 09/30/2016 Dizziness and giddiness 02/11/2007 08/2006 Hypercalcemia 05/19/2006 05/24/2007 Anemia of chronic renal fail ure, stage 2 (mild) 05/19/2006 01/23/2023 Disorder of kidney and ureter 05/19/2006 05/12/2022 URETHRITIS OTHER SPECIFIED 01/13/2006 0 05/12/2022 Esophageal reflux 11/20/2005 04/19/2019 documented as of this encounter (statuses as of 12/03/2023) [facility] History of Present illness Narrative* Jeffy Fields MD - 03/24/2023 2:00 PM EDT No chief complaint on file. HPI: Patient presents today for office visit for ER follow up. Seen in [facility] ER on 02/28/23. Abd pain. LLQ X 2wks Waxing and waning No known history of Diverticulosis No nausea or vomiting No bloody or black stool No urinary symptoms CT ABD/PELVIS: showed no suspicious solid organ abnormality, nonobstructive right nephrolithiasis, simple right renal cyst. No specific follow up needed. Small bowel ileus likely due to retained stool throughout the entirety of colon No free intraperitoneal fluid, air, or suspicious adenopathy Diffuse atherosclerosis Sent home with Miralax. Taking Miralax regularly. Helping most of the time she thinks. Some days doesn't have a bowel movement. Still with abd pain to LLQ. Not severe. Refers to something just not being quite right. Has a lot of gurgling sounds She is drinking fluids and eating fiber. Last colonoscopy was 2016. a Seeing Gi at [place] due to hx of RUQ pain. Us showed ? Extrahepatic duct bile dilatation of ? Significance. Her biliary tract was normal on ct. Appt is on March. Still occasional ruq pain. No fever or chills. No bloody or black stools. Component Latest Ref Rng & Units 01/23/2023 WBC 3.70 - 11.00 k/uL 4.94 RBC 3.90 - 5.20 m/uL 4.34 Hemoglobin 11.5 - 15.5 g/dL 13.4 Hematocrit 36.0 - 46.0 % 40.7 MCV 80.0 - 100.0 fL 93.8 MCH 26.0 - 34.0 pg 30.9 MCHC 30.5 - 36.0 g/dL 32.9 RDW-CV 11.5 - 15.0 % 11.9 Platelet Count 150 - 400 k/uL 157 MPV 9.0 - 12.7 fL 11.0 Neut% % 71.7 Abs Neut (ANC) 1.45 - 7.50 k/uL 3.54 Lymph% % 16.2 Abs Lymph 1.00 - 4.00 k/uL 0.80 (L) O'Brien% % 6.7 Abs O'Brien <0.87 k/uL 0.33 Eosin% % 4.0 Abs Eosin <0.46 k/uL 0.20 Baso% % 1.2 Abs Baso <0.11 k/uL 0.06 Immature Gran % % 0.2 IMMATURE GRANS (ABS) <0.10 k/uL <0.03 NRBC /100 WBC 0.0 Absolute nRBC <0.01 k/uL <0.01 DTYPE Auto Protein, Total 6.3 - 8.0 g/dL 6.4 Albumin 3.9 - 4.9 g/dL 4.3 Calcium 8.5 - 10.2 mg/dL 9.7 Bilirubin, Total 0.2 - 1.3 mg/dL 0.3 Alkaline Phosphatase 34 - 123 U/L 68 AST 13 - 35 U/L 21 ALT 7 - 38 U/L 12 Glucose 74 - 99 mg/dL 103 (H) BUN 7 - 21 mg/dL 26 (H) Creatinine 0.58 - 0.96 mg/dL 1.21 (H) Sodium 136 - 144 mmol/L 137 Potassium 3.7 - 5.1 mmol/L 4.7 Chloride 97 - 105 mmol/L 100 CO2 22 - 30 mmol/L 25 Anion Gap 9 - 18 mmol/L 12 eGFR >=60 mL/min/1.73m 44 (L) Hemoglobin A1C 4.3 - 5.6 % 5.6 Estimated Average Glucose mg/dL 114 Lipase 16 - 61 U/L 42 TSH 0.270 - 4.200 mIU/L 0.751 MEDICATIONS: Current Outpatient Medications Medication Sig rOPINIRole (REQUIP) 0.5 mg tablet one tablet at noon and 4PM, 1 tablets at 8PM and 1 tablet at midnight. pregabalin (LYRICA) 50 mg capsule Take 1 capsule by mouth three times daily for 180 days. (As directed) losartan (COZAAR) 50 mg tablet Take 1 tablet by mouth once daily. levothyroxine (SYNTHROID) 50 mcg tablet Take 1 tablet by mouth once daily 6 out of 7 days per week. omeprazole (PRILOSEC) 20 mg capsule Take one tablet by mouth q day simvastatin (ZOCOR) 40 mg tablet Take 1 tablet by mouth daily at bedtime. TURMERIC ORAL Take 1 capsule by mouth once daily. calcium carbonate/vitamin D3 (CALCIUM WITH VITAMIN D ORAL) Take 1 tablet by mouth once daily. IPRATROPIUM BROMIDE NASAL Use 1 Leburn in the nose twice daily. hypromellose(GENTEAL MODERATE 0.3 % EYE DROPS) To left eye ASPIRIN 81 MG TAB Take one (1) tablet daily . Current Facility-Administered Medications Medication Dose Route Frequency perflutren lipid microspheres 1.3 mL in NaCl (PF) 0.9% 10 mL injection (DEFINITY) INTRAVENOUS DIRECTED PRN sodium chloride 0.9 % (flush) 10 mL (BD POSIFLUSH) 10 mL INTRAVENOUS DIRECTED PRN ALLERGIES: ALLERGIES Allergen Reactions Genteal Eye Ointmen* Itching Itching,redness, and watery eyes Asa [Salicylates] ringing in ears Flonase [Fluticason* Other: See Comments gets jittery Sulfa (Sulfonamide * Hives PAST MEDICAL HISTORY Diagnosis Date Anemia of chronic renal failure, stage 2 (mild) 05/19/2006 Arthritis left foot and right thumb Esophageal reflux Essential hypertension, benign Essential tremor GERD (gastroesophageal reflux disease) Hiatal hernia 08/25/2018 Other and unspecified hyperlipidemia Senile osteoporosis Unspecified hypothyroidism PAST SURGICAL HISTORY Procedure Laterality Date ADENOIDECTOMY PRIMARY <AGE 14 Adenoidectomy APPENDECTOMY open [facility]OSCOPY 11/28/2016 [facility]osis. ESOPHAGOGASTRODUODENOSCOPY TRANSORAL DIAGNOSTIC 08/25/2018 EGD NEUROPLASTY &/TRANSPOS MEDIAN NRV CARPAL TUNNE Carpal tunnel decomp- left PAST SURGICAL HISTORY OF salivary gland removed- chronic infection PAST SURGICAL HISTORY OF 06-03-12 right trigger finger releases 1-4 PAST SURGICAL HISTORY OF 06-23-14 left ring trigger finger release RHINP PRIM LAT&ALAR CRTLGS&/ELVTN NASAL TI Rhinoplasty RHYTIDECTOMY NECK W/PLATYSMAL TIGHTENING eye brow lift TONSILLECTOMY PRIMARY/SECONDARY <AGE 14 Tonsillectomy TOTAL ABDOMINAL HYSTERECT W/WO RMVL TUBE OVARY Hysterectomy, DHIRAJ FAMILY HISTORY Problem Relation Age of Onset Heart Mother massive HI, in her 70's other (Other) Father unknown Alzheimer's Disease Sister Cancer Maternal Grandmother GI CANCER Heart Maternal Aunt Diabetes Maternal Aunt Heart Maternal Uncle Social History Tobacco Use Smoking status: Never Smokeless tobacco: Never Vaping Use Vaping Use: Never used Substance Use Topics Alcohol use: No Drug use: No Reviewed current medications, allergies, past medical history, surgical history, family history andsocial history today. REVIEW OF SYSTEMS All other reviewed and negative other than HPI. VITALS: BP 156/56 Pulse 74 Ht 154.9 cm (5' 1) Wt 47.3 kg (104 lb 3.2 oz) SpO2 98% BMI 19.69 kg/m Last 4 Encounter Wt Readings: Date: Wt: 02/28/2023 48.2 kg (106 lb 3.2 oz) 02/20/2023 47.4 kg (104 lb 9.6 oz) 01/23/2023 47.4 kg (104 lb 9.6 oz) 10/31/2022 47 kg (103 lb 9.6 oz) PHYSICAL EXAMINATION: General appearance: Well appearing, alert, in no acute distress, well-hydrated, well nourished. Skin: Skin color, texture, turgor normal, no suspicious rashes or lesions Head: Normocephalic, no masses, lesions, tenderness or abnormalities Lungs: Lungs clear to auscultation. No wheezing, rhonchi, rales Heart: RRR without murmur, gallop, or rubs. No ectopy Abdomen: mild llq pain, no rebound. No guarding. Bowel sounds positive. Extremities: No deformities, edema, skin discoloration, clubbing or cyanosis. Good capillary refill. Musculoskeletal: No joint swelling, deformity, or tenderness ASSESSMENT/PLAN: 1. Gastroesophageal reflux disease with esophagitis, unspecified whether hemorrhage - ICD9: 530.11,ICD10: K21.00 (primary diagnosis) - stable. 2. Constipation, unspecified constipation type - ICD9: 564.00, ICD10: K59.00 - improving. Still with some dicomfort. Discussed fluids and fiber. Sees GASTROENTEROLOGY in two weeks. 3. LLQ pain - ICD9: 789.04, ICD10: R10.32 - as above. 4. Abnormal US (ultrasound) of abdomen - ICD9: 793.6, ICD10: R93.5 - had ? Mild extrahepatic dilatation of the bile ducts on us. Nothing seen on ct. See GI 5. Essential hypertension, benign - ICD9: 401.1, ICD10: I10 - Worsening control - bp check in one month Jeffy Fields MD [facility] Miscellaneous Notes* Telephone Encounter - Elvia Mcrae LPN - 03/20/2023 2:23 PM EDT Call to patient and scheduled. * Telephone Encounter - Jeffy Fields MD - 03/20/2023 12:53 PM EDT She needs er follow up visit with one of us next week [facility] History of Past illness Narrative* Problem Noted Date Diagnosed Date Resolved Date Left lower quadrant pain 03/05/2023 06/23/2023 Gastroesophageal reflux disease 08/20/2018 10/07/2018 Overview: Added automatically from request for surgery [id number] Epigastric pain 08/20/2018 04/19/2019 Overview: Added automatically from request for surgery [id number] Hyperlipidemia 10/19/2015 03/31/2017 Trigger ring finger of left hand 06/05/2014 04/19/2019 Perioral dermatitis 03/22/2014 03/31/20 17 Acne rosacea 03/22/2014 05/12/2022 Postinflammatory skin changes 03/22/2014 04/20/2015 Perianal dermatitis 08/22/2013 05/12/20 22 Anal burning 03/23/2013 04/20/2015 Irritated//Inflamed Seborrheic Keratosis 07/06/2012 04/20/2015 Milial cyst 07/06/2012 04/20/2015 Other seborrheic keratosis 07/06/2012 0 04/20/2015 Solar lentigo 07/06/2012 04/20/2015 Milia 07/06/2012 04/20/2015 Trigger middle finger of right hand 05/31/2012 04/19/2019 Trigger ring finger of right hand 05/31/2012 04/19/2019 Trigger little finger of left hand 05/03/2012 04/19/2019 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 Other seborrheic dermatitis 03/03/2012 04/20/2015 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 04/20/2015 Actinic skin damage 03/03/2012 04/20/20 15 Trigger middle finger of left hand 09/22/2011 04/19/2019 Trigger index finger of right hand 09/22/2011 04/19/2019 Trigger thumb of right hand 09/22/2011 04/19/2019 Psoriatic arthritis 02/13/2011 05/12/20 22 Paresthesia of skin 07/13/2007 06/05/20 17 Enthesopathy of unspecified site 07/12/2007 04/19/2019 Pain in limb 06/01/2007 09/30/2016 Dizziness and giddiness 02/11/200708/2006 Hypercalcemia 05/19/2006 05/24/2007 Anemia of chronic renal fail ure, stage 2 (mild) 05/19/2006 01/23/2023 Disorder of kidney and ureter 05/19/2006 05/12/2022 URETHRITIS OTHER SPECIFIED 01/13/2006 0 05/12/2022 Esophageal reflux 11/20/2005 04/19/2019 documented as of this encounter (statuses as of 06/24/2023) [facility] of Past illness Narrative* Problem Noted Date Diagnosed Date Resolved Date Left lower quadrant pain 03/05/2023 06/23/2023 Gastroesophageal reflux disease 08/20/2018 10/07/2018 Overview: Added automatically from request for surgery [id number] Epigastric pain 08/20/2018 04/19/2019 Overview: Added automatically from request for surgery [id number] Hyperlipidemia 10/19/2015 03/31/2017 Trigger ring finger of left hand 06/05/2014 04/19/2019 Perioral dermatitis 03/22/2014 03/31/20 17 Acne rosacea 03/22/2014 05/12/2022 Postinflammatory skin changes 03/22/2014 04/20/2015 Perianal dermatitis 08/22/2013 05/12/20 22 Anal burning 03/23/2013 04/20/2015 Irritated//Inflamed Seborrheic Keratosis 07/06/2012 04/20/2015 Milial cyst 07/06/2012 04/20/2015 Other seborrheic keratosis 07/06/2012 0 04/20/2015 Solar lentigo 07/06/2012 04/20/2015 Milia 07/06/2012 04/20/2015 Trigger middle finger of right hand 05/31/2012 04/19/2019 Trigger ring finger of right hand 05/31/2012 04/19/2019 Trigger little finger of left hand 05/03/2012 04/19/2019 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 Other seborrheic dermatitis 03/03/2012 04/20/2015 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 04/20/2015 Actinic skin damage 03/03/2012 04/20/20 15 Trigger middle finger of left hand 09/22/2011 04/19/2019 Trigger index finger of right hand 09/22/2011 04/19/2019 Trigger thumb of right hand 09/22/2011 04/19/2019 Psoriatic arthritis 02/13/2011 05/12/20 22 Paresthesia of skin 07/13/2007 06/05/20 17 Enthesopathy of unspecified site 07/12/2007 04/19/2019 Pain in limb 06/01/2007 09/30/2016 Dizziness and giddiness 02/11/200708/2006 Hypercalcemia 05/19/2006 05/24/2007 Anemia of chronic renal fail ure, stage 2 (mild) 05/19/2006 01/23/2023 Disorder of kidney and ureter 05/19/2006 05/12/2022 URETHRITIS OTHER SPECIFIED 01/13/2006 0 05/12/2022 Esophageal reflux 11/20/2005 04/19/2019 documented as of this encounter (statuses as of 06/27/2023) [facility] Narrative* Problem Noted Date Diagnosed Date Resolved Date Left lower quadrant pain 03/05/2023 06/23/2023 Gastroesophageal reflux disease 08/20/2018 10/07/2018 Overview: Added automatically from request for surgery [id number] Epigastric pain 08/20/2018 04/19/2019 Overview: Added automatically from request for surgery [id number] Hyperlipidemia 10/19/2015 03/31/2017 Trigger ring finger of left hand 06/05/2014 04/19/2019 Perioral dermatitis 03/22/2014 03/31/20 17 Acne rosacea 03/22/2014 05/12/2022 Postinflammatory skin changes 03/22/2014 04/20/2015 Perianal dermatitis 08/22/2013 05/12/20 22 Anal burning 03/23/2013 04/20/2015 Irritated//Inflamed Seborrheic Keratosis 07/06/2012 04/20/2015 Milial cyst 07/06/2012 04/20/2015 Other seborrheic keratosis 07/06/2012 0 04/20/2015 Solar lentigo 07/06/2012 04/20/2015 Milia 07/06/2012 04/20/2015 Trigger middle finger of right hand 05/31/2012 04/19/2019 Trigger ring finger of right hand 05/31/2012 04/19/2019 Trigger little finger of left hand 05/03/2012 04/19/2019 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 Other seborrheic dermatitis 03/03/2012 04/20/2015 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 04/20/2015 Actinic skin damage 03/03/2012 04/20/20 15 Trigger middle finger of left hand 09/22/2011 04/19/2019 Trigger index finger of right hand 09/22/2011 04/19/2019 Trigger thumb of right hand 09/22/2011 04/19/2019 Psoriatic arthritis 02/13/2011 05/12/20 22 Paresthesia of skin 07/13/2007 06/05/20 17 Enthesopathy of unspecified site 07/12/2007 04/19/2019 Pain in limb 06/01/2007 09/30/2016 Dizziness and giddiness 02/11/2007 10/0 08/2006 Hypercalcemia 05/19/2006 05/24/2007 Anemia of chronic renal fail ure, stage 2 (mild) 05/19/2006 01/23/2023 Disorder of kidney and ureter 05/19/2006 05/12/2022 URETHRITIS OTHER SPECIFIED 01/13/2006 0 05/12/2022 Esophageal reflux 11/20/2005 04/19/2019 documented as of this encounter (statuses as of 06/28/2023) [facility]07-13-2023 History of Past illness Narrative* Problem Noted Date Diagnosed Date Resolved Date Left lower quadrant pain 03/05/2023 06/23/2023 Gastroesophageal reflux disease 08/20/2018 10/07/2018 Overview: Added automatically from request for surgery [id number] Epigastric pain 08/20/2018 04/19/2019 Overview: Added automatically from request for surgery [id number] Hyperlipidemia 10/19/2015 03/31/2017 Trigger ring finger of left hand 06/05/2014 04/19/2019 Perioral dermatitis 03/22/2014 03/31/20 17 Acne rosacea 03/22/2014 05/12/2022 Postinflammatory skin changes 03/22/2014 04/20/2015 Perianal dermatitis 08/22/2013 05/12/20 22 Anal burning 03/23/2013 04/20/2015 Irritated//Inflamed Seborrheic Keratosis 07/06/2012 04/20/2015 Milial cyst 07/06/2012 04/20/2015 Other seborrheic keratosis 07/06/2012 0 04/20/2015 Solar lentigo 07/06/2012 04/20/2015 Milia 07/06/2012 04/20/2015 Trigger middle finger of right hand 05/31/2012 04/19/2019 Trigger ring finger of right hand 05/31/2012 04/19/2019 Trigger little finger of left hand 05/03/2012 04/19/2019 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 Other seborrheic dermatitis 03/03/2012 04/20/2015 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 04/20/2015 Actinic skin damage 03/03/2012 04/20/20 15 Trigger middle finger of left hand 09/22/2011 04/19/2019 Trigger index finger of right hand 09/22/2011 04/19/2019 Trigger thumb of right hand 09/22/2011 04/19/2019 Psoriatic arthritis 02/13/2011 05/12/20 22 Paresthesia of skin 07/13/2007 06/05/20 17 Enthesopathy of unspecified site 07/12/2007 04/19/2019 Pain in limb 06/01/2007 09/30/2016 Dizziness and giddiness 02/11/2007 10/08/2006 Hypercalcemia 05/19/2006 05/24/2007 Anemia of chronic renal fail ure, stage 2 (mild) 05/19/2006 01/23/2023 Disorder of kidney and ureter 05/19/2006 05/12/2022 URETHRITIS OTHER SPECIFIED 01/13/2006 0 05/12/2022 Esophageal reflux 11/20/2005 04/19/2019 documented as of this encounter (statuses as of 06/28/2023) [facility] History of Past illness Narrative* Problem Noted Date Diagnosed Date Resolved Date Left lower quadrant pain 03/05/2023 06/23/2023 Gastroesophageal reflux disease 08/20/2018 10/07/2018 Overview: Added automatically from request for surgery [id number] Epigastric pain 08/20/2018 04/19/2019 Overview: Added automatically from request for surgery [id number] Hyperlipidemia 10/19/2015 03/31/2017 Trigger ring finger of left hand 06/05/2014 04/19/2019 Perioral dermatitis 03/22/2014 03/31/20 17 Acne rosacea 03/22/2014 05/12/2022 Postinflammatory skin changes 03/22/2014 04/20/2015 Perianal dermatitis 08/22/2013 05/12/20 22 Anal burning 03/23/2013 04/20/2015 Irritated//Inflamed Seborrheic Keratosis 07/06/2012 04/20/2015 Milial cyst 07/06/2012 04/20/2015 Other seborrheic keratosis 07/06/2012 0 04/20/2015 Solar lentigo 07/06/2012 04/20/2015 Milia 07/06/2012 04/20/2015 Trigger middle finger of right hand 05/31/2012 04/19/2019 Trigger ring finger of right hand 05/31/2012 04/19/2019 Trigger little finger of left hand 05/03/2012 04/19/2019 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 Other seborrheic dermatitis 03/03/2012 04/20/2015 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 04/20/2015 Actinic skin damage 03/03/2012 04/20/20 15 Trigger middle finger of left hand 09/22/2011 04/19/2019 Trigger index finger of right hand 09/22/2011 04/19/2019 Trigger thumb of right hand 09/22/2011 04/19/2019 Psoriatic arthritis 02/13/2011 05/12/20 22 Paresthesia of skin 07/13/2007 06/05/20 17 Enthesopathy of unspecified site 07/12/2007 04/19/2019 Pain in limb 06/01/2007 09/30/2016 Dizziness and giddiness 02/11/2007 10/0 08/2006 Hypercalcemia 05/19/2006 05/24/2007 Anemia of chronic renal fail ure, stage 2 (mild) 05/19/2006 01/23/2023 Disorder of kidney and ureter 05/19/2006 05/12/2022 URETHRITIS OTHER SPECIFIED 01/13/2006 0 05/12/2022 Esophageal reflux 11/20/2005 04/19/2019 documented as of this encounter (statuses as of 06/28/2023) [facility] History of Past illness Narrative* Problem Noted Date Diagnosed Date Resolved Date Left lower quadrant pain 03/05/2023 06/23/2023 Gastroesophageal reflux disease 08/20/2018 10/07/2018 Overview: Added automatically from request for surgery [id number] Epigastric pain 08/20/2018 04/19/2019 Overview: Added automatically from request for surgery [id number] Hyperlipidemia 10/19/2015 03/31/2017 Trigger ring finger of left hand 06/05/2014 04/19/2019 Perioral dermatitis 03/22/2014 03/31/20 17 Acne rosacea 03/22/2014 05/12/2022 Postinflammatory skin changes 03/22/2014 04/20/2015 Perianal dermatitis 08/22/2013 05/12/20 22 Anal burning 03/23/2013 04/20/2015 Irritated//Inflamed Seborrheic Keratosis 07/06/2012 04/20/2015 Milial cyst 07/06/2012 04/20/2015 Other seborrheic keratosis 07/06/2012 0 04/20/2015 Solar lentigo 07/06/2012 04/20/2015 Milia 07/06/2012 04/20/2015 Trigger middle finger of right hand 05/31/2012 04/19/2019 Trigger ring finger of right hand 05/31/2012 04/19/2019 Trigger little finger of left hand 05/03/2012 04/19/2019 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 Other seborrheic dermatitis 03/03/2012 04/20/2015 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 04/20/2015 Actinic skin damage 03/03/2012 04/20/20 15 Trigger middle finger of left hand 09/22/2011 04/19/2019 Trigger index finger of right hand 09/22/2011 04/19/2019 Trigger thumb of right hand 09/22/2011 04/19/2019 Psoriatic arthritis 02/13/2011 05/12/20 22 Paresthesia of skin 07/13/2007 06/05/20 17 Enthesopathy of unspecified site 07/12/2007 04/19/2019 Pain in limb 06/01/2007 09/30/2016 Dizziness and giddiness 02/11/2007 10/08/2006 Hypercalcemia 05/19/2006 05/24/2007 Anemia of chronic renal fail ure, stage 2 (mild) 05/19/2006 01/23/2023 Disorder of kidney and ureter 05/19/2006 05/12/2022 URETHRITIS OTHER SPECIFIED 01/13/2006 0 05/12/2022 Esophageal reflux 11/20/2005 04/19/2019 documented as of this encounter (statuses as of 07/04/2023) [facility] History of Past illness Narrative* Problem Noted Date Diagnosed Date Resolved Date Left lower quadrant pain 03/05/2023 06/23/2023 Gastroesophageal reflux disease 08/20/2018 10/07/2018 Overview: Added automatically from request for surgery [id number] Epigastric pain 08/20/2018 04/19/2019 Overview: Added automatically from request for surgery [id number] Hyperlipidemia 10/19/2015 03/31/2017 Trigger ring finger of left hand 06/05/2014 04/19/2019 Perioral dermatitis 03/22/2014 03/31/20 17 Acne rosacea 03/22/2014 05/12/2022 Postinflammatory skin changes 03/22/2014 04/20/2015 Perianal dermatitis 08/22/2013 05/12/20 22 Anal burning 03/23/2013 04/20/2015 Irritated//Inflamed Seborrheic Keratosis 07/06/2012 04/20/2015 Milial cyst 07/06/2012 04/20/2015 Other seborrheic keratosis 07/06/2012 0 04/20/2015 Solar lentigo 07/06/2012 04/20/2015 Milia 07/06/2012 04/20/2015 Trigger middle finger of right hand 05/31/2012 04/19/2019 Trigger ring finger of right hand 05/31/2012 04/19/2019 Trigger little finger of left hand 05/03/2012 04/19/2019 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 Other seborrheic dermatitis 03/03/2012 04/20/2015 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 04/20/2015 Actinic skin damage 03/03/2012 04/20/20 15 Trigger middle finger of left hand 09/22/2011 04/19/2019 Trigger index finger of right hand 09/22/2011 04/19/2019 Trigger thumb of right hand 09/22/2011 04/19/2019 Psoriatic arthritis 02/13/2011 05/12/20 22 Paresthesia of skin 07/13/2007 06/05/20 17 Enthesopathy of unspecified site 07/12/2007 04/19/2019 Pain in limb 06/01/2007 09/30/2016 Dizziness and giddiness 02/11/2007 10/08/2006 Hypercalcemia 05/19/2006 05/24/2007 Anemia of chronic renal fail ure, stage 2 (mild) 05/19/2006 01/23/2023 Disorder of kidney and ureter 05/19/2006 05/12/2022 URETHRITIS OTHER SPECIFIED 01/13/2006 0 05/12/2022 Esophageal reflux 11/20/2005 04/19/2019 documented as of this encounter (statuses as of 07/20/2023) [facility] History of Past illness Narrative* Problem Noted Date Diagnosed Date Resolved Date Left lower quadrant pain 03/05/2023 06/23/2023 Gastroesophageal reflux disease 08/20/2018 10/07/2018 Overview: Added automatically from request for surgery [id number] Epigastric pain 08/20/2018 04/19/2019 Overview: Added automatically from request for surgery [id number] Hyperlipidemia 10/19/2015 03/31/2017 Trigger ring finger of left hand 06/05/2014 04/19/2019 Perioral dermatitis 03/22/2014 03/31/20 17 Acne rosacea 03/22/2014 05/12/2022 Postinflammatory skin changes 03/22/2014 04/20/2015 Perianal dermatitis 08/22/2013 05/12/20 22 Anal burning 03/23/2013 04/20/2015 Irritated//Inflamed Seborrheic Keratosis 07/06/2012 04/20/2015 Milial cyst 07/06/2012 04/20/2015 Other seborrheic keratosis 07/06/2012 0 04/20/2015 Solar lentigo 07/06/2012 04/20/2015 Milia 07/06/2012 04/20/2015 Trigger middle finger of right hand 05/31/2012 04/19/2019 Trigger ring finger of right hand 05/31/2012 04/19/2019 Trigger little finger of left hand 05/03/2012 04/19/2019 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 Other seborrheic dermatitis 03/03/2012 04/20/2015 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 04/20/2015 Actinic skin damage 03/03/2012 04/20/20 15 Trigger middle finger of left hand 09/22/2011 04/19/2019 Trigger index finger of right hand 09/22/2011 04/19/2019 Trigger thumb of right hand 09/22/2011 04/19/2019 Psoriatic arthritis 02/13/2011 05/12/20 22 Paresthesia of skin 07/13/2007 06/05/20 17 Enthesopathy of unspecified site 07/12/2007 04/19/2019 Pain in limb 06/01/2007 09/30/2016 Dizziness and giddiness 02/11/2007 10/08/2006 Hypercalcemia 05/19/2006 05/24/2007 Anemia of chronic renal fail ure, stage 2 (mild) 05/19/2006 01/23/2023 Disorder of kidney and ureter 05/19/2006 05/12/2022 URETHRITIS OTHER SPECIFIED 01/13/2006 0 05/12/2022 Esophageal reflux 11/20/2005 04/19/2019 documented as of this encounter (statuses as of 07/24/2023) [facility]07-08-2023 Discharge summary Author Cresencio Rollins [facility] February 28, 2023 1:13pm Note Date/Time February 28, 2023 10:57 am [facility] Medical Records Department [address] [place] [address] Emergency Department Summary 02/28/23 MR#: [id number] Acct: [id number] Name: CHINYERE KRISHNA Rep #:[id number] : [id number] 87 From: Cresencio Rollins MD PCP: Dr. Jeffy Fields MD Status:REG E R Location: ED HPI HPI - GI History of Present Illness Chief Complaint: Abd Pain Informant: patient Narrative Narrative: Patient has been having abdominal pain in her left lower quadrant for the past 2weeks or so, it is been waxing and waning, but this morning it is worse and moreprominent, unlike it has been in the past week or 2. This is the first time shehas been seen for it. She has never had this before. No known history of diverticulosis. Only prior abdominal surgery was appendectomy and total hysterectomy both of which were remote. No other associated symptoms with this including blood in her stool, melena, nausea, vomiting, fevers. No urinary symptoms. No pain in her back. PFSH PFSH Medical History Abnormal echocardiogram Actinic keratitis CKD (chronic kidney disease) stage 3, GFR 30-59 ml/min Dyspareunia due to medical condition in female Essential hypertension GERD (gastroesophageal reflux disease) Hiatal hernia Hypothyroidism Mixed hyperlipidemia Non-rheumatic mitral regurgitation Psoriasis Rosacea Seborrheic keratosis Urinary tract infection Home Medications aspirin 81 mg chewable tablet 81 mg PO DAILY 11/08/18 [History Last Taken Unknown] calcium citrate 200 mg (950 mg) tablet (Calcitrate) 200 mg PO DAILY 11/08/18 [History Last Taken Unknown] dextran 70-hypromellose 0.1 %-0.3 % eye drops (GenTeal Tears Mild) drp ophthalmic (eye) 11/08/18 [History Last Taken Unknown] omeprazole 20 mg capsule,delayed release 20 mg PO DAILY 11/08/18 [History Last Taken Unknown] simvastatin 40 mg tablet 40 mg PO QHS 11/08/18 [History Last Taken Unknown] losartan 50 mg tablet 50 mg PO DAILY 01/27/21 [History Last Taken Unknown] ipratropium bromide 21 mcg (0.03 %) nasal spray 2 spray intranasal BID 02/11/23 [History Last Taken Unknown] pregabalin 50 mg capsule 50 mg PO BID 02/11/23 [History Last Taken Unknown] ropinirole 0.5 mg tablet 0.5 mg PO TID 02/11/23 [History Last Taken Unknown] turmeric 400 mg capsule 400 mg PO DAILY 02/11/23 [History Last Taken Unknown] amoxicillin 500 mg capsule 2,000 mg PO ONCE PRN 02/23/23 [History Last Taken Unknown] levothyroxine 50 mcg tablet 50 mcg PO 6XW 02/23/23 [History Last Taken Unknown] polyethylene glycol 3350 17 gram/dose oral powder (Laxative PEG 3350) 17 g PO DAILY #119 grams 02/28/23 [Rx Last Taken Unknown] Allergy/AdvReac Type Severity Reaction Status Date / Time hypromellose Allergy Severe Rednesss, Verified 02/28/23 10:27 [From GenTeal (hypromellose)] watering, pain in eye NSAIDS (Non-Steroidal Allergy Mild Other Verified 02/28/23 10:27 Anti-Inflamma Sulfa (Sulfonamide Allergy Rash Verified 02/28/23 10:27 Antibiotics) fluticasone [From Flonase] AdvReac Unknown jittery Verified 02/28/23 10:27 salicylates AdvReac Unknown ringing in Verified 02/28/23 10:27 ears Family History Mother Myocardial infarction, Onset Age: 70 Surgical History History of appendectomy History of right knee joint replacement (~2021) S/P DHIRAJ (total abdominal hysterectomy) Social History Smoking Status: Never smoker alcohol intake: never substance use type: does not use caffeine: No what type of physical activity do you participate in: walking seatbelt use: always do you feel safe at home: Yes additional social history: [employer]- Retired ROS ROS ED Constitutional Constitutional ED: Denies chills or fever(s) Eyes Eyes: Denies change in vision or diplopia ENT ENT ED: Denies rhinorrhea or sore throat Cardiovascular Cardiovascular: Denies chest pain or palpitations Respiratory/Chest Respiratory/Chest: Denies cough or dyspnea Gastrointestinal Gastrointestinal: Reports abdominal pain; Denies diarrhea, nausea or vomiting Genitourinary Genitourinary ED: Denies dysuria or hematuria Musculoskeletal Musculoskeletal: Denies back pain or neck pain Integumentary Denies abscess or rash Neurologic Neurologic: Denies headache(s), paresthesias or weakness Psychiatric Psychiatric: Denies anxiety or suicidal thoughts EXAM Physical Exam Const Vital Signs: 02/28/23 10:27 Temperature 97.5 F L Temperature Source Temporal Pulse Rate 81 Respiratory Rate 16 Blood Pressure 198/71 H Blood Pressure Mean 113 Pulse Ox 100 Oxygen Delivery Method Room Air Positive well nourished and well developed General Appearance ED: well developed and NAD HEENT Reports moist mucous membranes normocephalic and atraumatic Eyes PERRL and EOMs intact bilaterally Neck full ROM and supple Resp normal respiratory effort and clear to auscultation bilaterally Cardio regular rate, regular rhythm and no murmurs GI non-distended GI Narrative: Left lower quadrant tenderness without guarding, rebound, or pulsatile mass. Normal on inspection no Rodriguez Hsieh or [place] signs. Auscultation: normoactive bowel sounds Palpation: soft Back/Spine no CVA tenderness General Back: other FROM Extremity normal to inspection General Extremety ED: Negative for edema, pulses abnormal or tenderness General Extremity: Negative for edema or pulses abnormal Neuro oriented x3, CN's II-XII intact bilaterally and no sensory deficits noted Sensorium / Orientation: awake and alert Motor Exam: strength 5/5 throughout Skin no rashes or lesions noted and no wounds MDM MDM MDM Narrative Medical decision making narrative: Diverticulitis in the differential diagnosis, also kidney stone, urinary issues,other intestinal issues such as bowel obstruction although less likely because she has had no nausea or vomiting. Obtain labs, urinalysis, these are all normal with a white blood count of 4.0. Obtained a CT with IV contrast, I reviewed the images and the results. I discussed all this with Dr. Ramirez. Thisis a fairly big was result, I agree that she appears to have a lot of stool in the bowel, I do not see any bowel distention. He looked at the images and agrees, this looks like fecalization of the small bowel and a predilection of large amount of stool in the colon, he does not see any reason for admission based on the appearance of the scan which I agree with as well. The patient looks well, she has a fairly benign abdomen, she is tender left lower quadrant, and I asked her more about her stool habits. She had a large bowel movement this morning that seemed normal to her, she does not feel like she has been constipated lately, having bowel movements has not increased or improved the pain. Certainly does not appear to have any signs of ischemic bowel and her pain is not severe at this time, and her labs are normal and I see no reason to admit her to the hospital for further testing right now. I do agree that the results of the CT do not exactly correlate with her symptoms. Dr. Ramirez is in agreement with my plan to basically put her on a colon cleansing regimen in the short-term, stool softener long-term, and close outpatient follow-up short-term. I am going to prescribe her MiraLAX as she has a right medication, I recommend doing 4 capfuls today and drinking plenty of water which she has been doing, andthen 1 capful daily going forward, and reevaluating with her PCP. Of note, she does not have an ileus clinically, her bowel sounds are normal, and she does nothave any distention of her abdomen. Furthermore, when patient reviews her calendar, she states she has been having this pain for 6 weeks. Lab Data Attestation: I reviewed the patient's lab results. Labs: Laboratory Results - last 24 hr 02/28/23 02/28/23 10:38 10:40 WBC 4.0 L RBC 4.53 Hgb 13.7 Hct 42.0 MCV 92.7 MCH 30.2 MCHC 32.6 RDW Std Deviation 41.0 RDW Coeff of Fatimah 11.9 Plt Count 156 MPV 10.1 Immature Gran % (Auto) 0.500 Neut % (Auto) 65.9 Lymph % (Auto) 18.8 L O'Brien % (Auto) 7.9 Eos % (Auto) 5.4 H Baso % (Auto) 1.5 H Absolute Neuts (auto) 2.7 Absolute Lymphs (auto) 0.76 L Nucleated RBC % 0 Sodium 133 L Potassium 3.7 Chloride 100 Carbon Dioxide 28.0 Anion Gap 5 BUN 26 H Creatinine 1.08 H Estim Creat Clear Calc 27.52 Est GFR (MDRD) Af Amer 62 Est GFR (MDRD) Non-Af 51 L BUN/Creatinine Ratio 24.1 H Glucose 102 Calcium 9.3 Urine Color Straw Urine Clarity Clear Urine pH 6.5 Ur Specific Muse 1.010 Urine Protein 15 H Urine Glucose (UA) Normal Urine Ketones Negative Urine Occult Blood 25 H Urine Nitrite Negative Urine Bilirubin Negative Urine Urobilinogen Normal Ur Leukocyte Esterase Negative Urine RBC 0 SEEN Urine WBC 0 SEEN Ur Squamous Epith Cells 0 SEEN Urine Bacteria 0 SEEN Urine Mucus 0 SEEN Radiography Diagnostic Testing: Clinical Impression(s) from Imaging Studies Abdomen/Pelvis CT 02/28/23 10:55 IMPRESSION: No suspicious solid organ abnormality, nonobstructing right nephrolithiasis, simple right renal cyst. No specific follow-up needed Small bowel ileus likely due to retained stool throughout the entirety of the colon No free intraperitoneal fluid, air, or suspicious adenopathy Diffuse atherosclerosis Electronically Signed: Edward Urias MD at 12:12 EDT , Discharge Plan Triage Chief Complaint: Abd Pain ED Provider: Cresencio Rollins Dx/Rx/DC Orders Clinical Impression: Abdominal pain, acute, left lower quadrant Instructions: ED Abdominal Pain Unkn Cause Fem Prescriptions: New polyethylene glycol 3350 [Laxative PEG 3350] 17 gram/dose powder 17 g PO DAILY Qty: 119 0RF Rx Instructions: 4 capfuls with 24 oz of water/beverage on first day No Action calcium citrate [Calcitrate] 200 mg (950 mg) tablet 200 mg PO DAILY simvastatin 40 mg tablet 40 mg PO QHS omeprazole 20 mg capsule,delayed release(DR/EC) 20 mg PO DAILY aspirin 81 mg tablet,chewable 81 mg PO DAILY GenTeal Tears Mild 0.1-0.3 % drops OPHTHALMIC levothyroxine 50 mcg tablet 50 mcg PO 6XW amoxicillin 500 mg capsule 2,000 mg PO ONCE PRN Rx Instructions: Prior to dental visits pregabalin 50 mg capsule 50 mg PO BID ropinirole 0.5 mg tablet 0.5 mg PO TID turmeric 400 mg capsule 400 mg PO DAILY ipratropium bromide 21 mcg (0.03 %) spray,non-aerosol 2 spray intranasal BID Rx Instructions: administer into each nostril losartan 50 mg tablet 50 mg PO DAILY Patient Comments: TAKE 1 TABLET BY MOUTH EVERY DAY Primary Care Provider: Jeffy Fields Referrals: Jeffy Fields MD [Primary Care Provider] - 3-5 Days if not improving Disposition Disposition: Home, Self Care What to do if you have Problems For any increased pain, shortness of breath, bleeding, nausea or vomiting, chestpain, or any unexpected problems, contact your Primary Care Provider. Call [facility] ([phone]) or report to the closest Emergency Room. Call 911 if necessary. 02/28/23 1313 <Electronically signed by Cresencio Rollins MD> Cosigner Signature (if applicable): CC: Dr. Jeffy Fields MD ~ Signed [facility] Work Phone: [phone] 183-109707-08-2023 History of Present illness Narrative* Jeffy Fields MD - 02/28/2023 9:20 AM EDT Patient presents with: Follow Up HPI: Patient presents today for office visit for follow up. Has today a new abd pain. Having llq pain. Has been on and off since before our last visit in January. Was ok that day. Today is very bad. Pain is 8-9 or 10. No previous hx of abd pain. No fever. No chills. No bloody or black stools. No urinary symptoms. No vomiting or nausea. No cough or congestion. Was worried about her Gallbladder at last ov. Noted some on and off RUQ pain for a few months. Does not radiate. Slightly constipated. No black or bloody stools. No nausea or vomiting. No urinary issues. Lasts for minutes. Not hours. Can't define more than that. On Omeprazole 20 mg daily. States symptoms controlled. Is slightly uncomfortable. Ultrasound shows coarse texture to liver. May simply be a mild fatty liver. ? Xtra biliary duct enlargement. Labs normal. Consult to Gail mejia. Scheduled for 04/07/23. Labs stable other than kidneys show she is slightly dry. Drinking fluids. States she drinks at least 8 glasses of water a day. Echo as below. . Consult to Cardiology placed. Saw Dr. Farrar on 02/23/23. No symptoms. Denies chest pain and shortness of breath. Recommend follow up in one year. US: Slightly coarse liver echotexture, a nonspecific finding. Please correlate with LFTs Slight extrahepatic bile duct dilatation. Correlation with clinical and laboratory data is recommended. Component Latest Ref Rng & Units 01/23/2023 WBC 3.70 - 11.00 k/uL 4.94 RBC 3.90 - 5.20 m/uL 4.34 Hemoglobin 11.5 - 15.5 g/dL 13.4 Hematocrit 36.0 - 46.0 % 40.7 MCV 80.0 - 100.0 fL 93.8 MCH 26.0 - 34.0 pg 30.9 MCHC 30.5 - 36.0 g/dL 32.9 RDW-CV 11.5 - 15.0 % 11.9 Platelet Count 150 - 400 k/uL 157 MPV 9.0 - 12.7 fL 11.0 Neut% % 71.7 Abs Neut (ANC) 1.45 - 7.50 k/uL 3.54 Lymph% % 16.2 Abs Lymph 1.00 - 4.00 k/uL 0.80 (L) O'Brien% % 6.7 Abs O'Brien <0.87 k/uL 0.33 Eosin% % 4.0 Abs Eosin <0.46 k/uL 0.20 Baso% % 1.2 Abs Baso <0.11 k/uL 0.06 Immature Gran % % 0.2 IMMATURE GRANS (ABS) <0.10 k/uL <0.03 NRBC /100 WBC 0.0 Absolute nRBC <0.01 k/uL <0.01 DTYPE Auto Protein, Total 6.3 - 8.0 g/dL 6.4 Albumin 3.9 - 4.9 g/dL 4.3 Calcium 8.5 - 10.2 mg/dL 9.7 Bilirubin, Total 0.2 - 1.3 mg/dL 0.3 Alkaline Phosphatase 34 - 123 U/L 68 AST 13 - 35 U/L 21 ALT 7 - 38 U/L 12 Glucose 74 - 99 mg/dL 103 (H) BUN 7 - 21 mg/dL 26 (H) Creatinine 0.58 - 0.96 mg/dL 1.21 (H) Sodium 136 - 144 mmol/L 137 Potassium 3.7 - 5.1 mmol/L 4.7 Chloride 97 - 105 mmol/L 100 CO2 22 - 30 mmol/L 25 Anion Gap 9 - 18 mmol/L 12 eGFR >=60 mL/min/1.73m 44 (L) Hemoglobin A1C 4.3 - 5.6 % 5.6 Estimated Average Glucose mg/dL 114 Lipase 16 - 61 U/L 42 TSH 0.270 - 4.200 mIU/L 0.751 MEDICATIONS: Current Outpatient Medications Medication Sig rOPINIRole (REQUIP) 0.5 mg tablet one tablet at noon and 4PM, 1 tablets at 8PM and 1 tablet at midnight. pregabalin (LYRICA) 50 mg capsule Take 1 capsule by mouth three times daily for 180 days. (As directed) losartan (COZAAR) 50 mg tablet Take 1 tablet by mouth once daily. levothyroxine (SYNTHROID) 50 mcg tablet Take 1 tablet by mouth once daily 6 out of 7 days per week. omeprazole (PRILOSEC) 20 mg capsule Take one tablet by mouth q day simvastatin (ZOCOR) 40 mg tablet Take 1 tablet by mouth daily at bedtime. TURMERIC ORAL Take 1 capsule by mouth once daily. calcium carbonate/vitamin D3 (CALCIUM WITH VITAMIN D ORAL) Take 1 tablet by mouth once daily. IPRATROPIUM BROMIDE NASAL Use 1 Leburn in the nose twice daily. hypromellose(GENTEAL MODERATE 0.3 % EYE DROPS) To left eye ASPIRIN 81 MG TAB Take one (1) tablet daily . Current Facility-Administered Medications Medication Dose Route Frequency perflutren lipid microspheres 1.3 mL in NaCl (PF) 0.9% 10 mL injection (DEFINITY) INTRAVENOUS DIRECTED PRN sodium chloride 0.9 % (flush) 10 mL (BD POSIFLUSH) 10 mL INTRAVENOUS DIRECTED PRN ALLERGIES: ALLERGIES Allergen Reactions Genteal Eye Ointmen* Itching Itching,redness, and watery eyes Asa [Salicylates] ringing in ears Flonase [Fluticason* Other: See Comments gets jittery Sulfa (Sulfonamide * Hives PAST MEDICAL HISTORY Diagnosis Date Anemia of chronic renal failure, stage 2 (mild) 05/19/2006 Arthritis left foot and right thumb Esophageal reflux Essential hypertension, benign Essential tremor GERD (gastroesophageal reflux disease) Hiatal hernia 08/25/2018 Other and unspecified hyperlipidemia Senile osteoporosis Unspecified hypothyroidism PAST SURGICAL HISTORY Procedure Laterality Date ADENOIDECTOMY PRIMARY <AGE 14 Adenoidectomy APPENDECTOMY open COLONOSCOPY 11/28/2016 [facility]- diverticulosis. ESOPHAGOGASTRODUODENOSCOPY TRANSORAL DIAGNOSTIC 08/25/2018 EGD NEUROPLASTY &/TRANSPOS MEDIAN NRV CARPAL TUNNE Carpal tunnel decomp- left PAST SURGICAL HISTORY OF salivary gland removed- chronic infection PAST SURGICAL HISTORY OF 06-03- right trigger finger releases 1-4 PAST SURGICAL HISTORY OF 06-23- left ring trigger finger release RHINP PRIM LAT&ALAR CRTLGS&/ELVTN NASAL TI Rhinoplasty RHYTIDECTOMY NECK W/PLATYSMAL TIGHTENING eye brow lift TONSILLECTOMY PRIMARY/SECONDARY <AGE 14 Tonsillectomy TOTAL ABDOMINAL HYSTERECT W/WO RMVL TUBE OVARY Hysterectomy, DHIRAJ FAMILY HISTORY Problem Relation Age of Onset Heart Mother massive HI, in her 70's other (Other) Father unknown Alzheimer's Disease Sister Cancer Maternal Grandmother GI CANCER Heart Maternal Aunt Diabetes Maternal Aunt Heart Maternal Uncle Social History Tobacco Use Smoking status: Never Smokeless tobacco: Never Vaping Use Vaping Use: Never used Substance Use Topics Alcohol use: No Drug use: No Reviewed current medications, allergies, past medical history, surgical history, family history andsocial history today. REVIEW OF SYSTEMS All other reviewed and negative other than HPI. HEALTH MAINTENANCE: Reviewed health maintenance issues today and recommended the following in detail. There are no preventive care reminders to display for this patient. VITALS: BP 164/52 Pulse 67 Ht 154.9 cm (5' 1) Wt 48.2 kg (106 lb 3.2 oz) SpO2 98% BMI 20.07 kg/m Last 4 Encounter Wt Readings: Date: Wt: 02/20/2023 47.4 kg (104 lb 9.6 oz) 01/23/2023 47.4 kg (104 lb 9.6 oz) 10/31/2022 47 kg (103 lb 9.6 oz) 09/23/2022 46.7 kg (103 lb) PHYSICAL EXAMINATION: General appearance: Well appearing, alert, in no acute distress, well-hydrated, well nourished. Skin: Skin color, texture, turgor normal, no suspicious rashes or lesions Oropharynx: Lips, mucosa, and tongue normal, teeth and gums normal, oropharynx normal Lungs: Lungs clear to auscultation. No wheezing, rhonchi, rales Heart: RRR without murmur, gallop, or rubs. No ectopy Abdomen: bs positive. Significant RLQ pain. Equivocal rebound. Some guarding. ASSESSMENT/PLAN: 1. RLQ abdominal pain - ICD9: 789.03, ICD10: R10.31 (primary diagnosis) - see [facility]. Er passport completed. 2. Nonrheumatic mitral valve regurgitation - ICD9: 424.0, ICD10: I34.0 - as above. 3. Ruq pain See gi. Jeffy Fields MD documented [facility] History of Present illness Narrative* Jeffy Clark Jr., MD - 02/20/2023 10:18 AM EDT ESTABLISHED PATIENT VISIT CHIEF COMPLAINT: Follow Up HISTORY OF PRESENT ILLNESS: Chinyere Alberts is a 87 year old female, BMI 19.76 kg/m2 with a PMH significant for and per last office visit of 10/31/22: 1. RLS (restless legs syndrome) - ICD9: 333.94, ICD10: G25.81 (primary diagnosis) Patient continues to reports leg kicking and spasms during the night at 4AM -- likely after the effects of her last dose of Requip have worn off. Lyrica having no influence on symptoms and will discontinue. Patient would like to try to increase Klonopin dose. Side effect of dizziness in past but when took 0.5mg at one time (not split). Reviewed SE and ADRs. Patient will now take 0.25mg of Klonopin at bedtime and then again at midnight-1AM (4-5 hours apart). No changes made to Requip dosing as above. I raised my concerns regarding polypharmacy with pt but she is reporting no side effects. Needclose monitoring with follow up in 3 months. Note UDS unremarkable last visit although benzo confirmation not completed (suspect Klonopin did not show due to low dose). Also discussed with pt need todrink adequate water as I have not noted an abnormal Na in recent labs. Also explained that if she continues to go to bed earlier she will naturally wake up earlier. Thus, may want to try to stay up later to sleep in. She will consider. 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 No changes in meds for such behaviors but increasing dose for RLS as above. Patient feels doing better now than ever has. Currently taking Requip tablets 0.5mg: Noon, 1630, 2030, [place]. The Klonopin she states works but feels drugged on the medication - yet still takes 0.25mg at bedtime and then 0.25mg when she wakes at midnight. She feels Lyrica helps - when I stopped it, the RLS was real bad. Currently taking Lyrica at noon and at bedtime. On further discussion, pt states feels drugged even after taking just 1 dose of 0.25mg Klonopin. GFR 47. Pt would like to substitute Lyrica for Klonopin. No other side effects from meds during the day. No other new medications. Patient has had no RLS in the afternoons for weeks. REVIEW OF SYSTEMS GENERAL:No weight loss, malaise or fevers. HEENT:Negative for frequent or significant headaches, No changes in hearing or vision, no nose bleeds or other nasal problems RESPIRATORY: Negative for cough, wheezing or shortness of breath. CARDIOVASCULAR: Negative for chest pain, leg swelling or palpitations. GASTROINTESTINAL: Negative for abdominal discomfort, blood in stools or black stools or change in bowel habits MUSCULOSKELETAL: Negative for joint pain or swelling, back pain or muscle pain. NEUROLOGIC:Negative for focal numbness or weakness, headaches and dizziness or syncope, vision changes, speech/languag changes - EXCEPT that as per HPI above. LAB/IMAGING: Those performed since patient's last visit have been reviewed. WBC (k/uL) Date Value 01/23/2023 4.94 RBC (m/uL) Date Value 01/23/2023 4.34 Hemoglobin (g/dL) Date Value 01/23/2023 13.4 Hematocrit (%) Date Value 01/23/2023 40.7 MCV (fL) Date Value 01/23/2023 93.8 MCH (pg) Date Value 01/23/2023 30.9 MCHC (g/dL) Date Value 01/23/2023 32.9 RDW-CV (%) Date Value 01/23/2023 11.9 Platelet Count (k/uL) Date Value 01/23/2023 157 MPV (fL) Date Value 01/23/2023 11.0 Glucose (mg/dL) Date Value 01/23/2023 103 (H) BUN (mg/dL) Date Value 01/23/2023 26 (H) Creatinine (mg/dL) Date Value 01/23/2023 1.21 (H) Sodium (mmol/L) Date Value 01/23/2023 137 Potassium (mmol/L) Date Value 01/23/2023 4.7 Chloride (mmol/L) Date Value 01/23/2023 100 CO2 (mmol/L) Date Value 01/23/2023 25 Protein, Total (g/dL) Date Value 01/23/2023 6.4 Albumin (g/dL) Date Value 01/23/2023 4.3 Calcium, Total (mg/dL) Date Value 01/23/2023 9.7 Alkaline Phosphatase (U/L) Date Value 01/23/2023 68 Bilirubin, Total (mg/dL) Date Value 01/23/2023 0.3 AST (U/L) Date Value 01/23/2023 21 ALT (U/L) Date Value 01/23/2023 12 Hep C Antibody IA (no units) Date Value 05/01/2011 Negative MEDICATIONS: losartan (COZAAR) 50 mg tablet^Take 1 tablet by mouth once daily.^Disp: 90 tablet^Rfl: 1 pregabalin (LYRICA) 50 mg capsule^Take 1 capsule by mouth twice daily for 90 days.^Disp: 180 capsule^Rfl: 0 levothyroxine (SYNTHROID) 50 mcg tablet^Take 1 tablet by mouth once daily 6 out of 7 days per week.^Disp: 90 tablet^Rfl: 1 rOPINIRole (REQUIP) 0.5 mg tablet^one tablet at noon and 4PM, 1 tablets at 8PM and 1 tablet at midnight.^Disp: 360 tablet^Rfl: 3 omeprazole (PRILOSEC) 20 mg capsule^Take one tablet by mouth q day^Disp: 90 capsule^Rfl: 3 simvastatin (ZOCOR) 40 mg tablet^Take 1 tablet by mouth daily at bedtime.^Disp: 90 tablet^Rfl: 3 TURMERIC ORAL^Take 1 capsule by mouth once daily.^Disp: ^Rfl: calcium carbonate/vitamin D3 (CALCIUM WITH VITAMIN D ORAL)^Take 1 tablet by mouth once daily.^Disp:^Rfl: IPRATROPIUM BROMIDE NASAL^Use 1 Leburn in the nose twice daily.^Disp: ^Rfl: hypromellose(GENTEAL MODERATE 0.3 % EYE DROPS)^To left eye^Disp: 0^Rfl: 0 ASPIRIN 81 MG TAB^Take one (1) tablet daily .^Disp: ^Rfl: 0 clonazePAM (KLONOPIN) 0.5 mg tablet^Take 1/2 tab QHS and 1/2 tablet at midnight.^Disp: 30 tablet^Rfl: 2 HISTORIES PAST MEDICAL HISTORY Diagnosis Date Anemia of chronic renal failure, stage 2 (mild) 05/19/2006 Arthritis left foot and right thumb Esophageal reflux Essential hypertension, benign Essential tremor GERD (gastroesophageal reflux disease) Hiatal hernia 08/25/2018 Other and unspecified hyperlipidemia Senile osteoporosis Unspecified hypothyroidism FAMILY HISTORY Problem Relation Age of Onset Heart Mother massive HI, in her 70's other (Other) Father unknown Alzheimer's Disease Sister Cancer Maternal Grandmother GI CANCER Heart Maternal Aunt Diabetes Maternal Aunt Heart Maternal Uncle SOCIAL HISTORY Social History Tobacco Use Smoking status: Never Smokeless tobacco: Never Vaping Use Vaping Use: Never used Substance Use Topics Alcohol use: No Drug use: No PHYSICAL EXAMINATION BP 123/72 Pulse 64 Temp 36.8 C (98.3 F) Resp 16 Wt 47.4 kg (104 lb 9.6 oz) SpO2 99% BMI19.76 kg/m GENERAL EXAM: General appearance: NAD, pleasant. HEENT: NC/AT, nasal congestion absent, no oral lesions, membranes moist. NECK: No masses, supple. Lungs: CTA bilaterally. CV: RRR nl S1, S2 - murmur audible at RSB 2nd ICS Extr: No cyanosis, clubbing or edema. Skin: Cool to touch. NEUROLOGICAL EXAM: General: Awake, alert, oriented x3 (person,place,time), speech fluent, no dysarthria; comprehension, naming, repetition intact. CN: PERRL, EOMI and without nystagmus, VFF to confrontation, facial sensation and strength are normal and symmetric, hearing is intact, palate and tongue movements are intact and symmetric. SCM and trapezius strength normal. Motor: Normal tone, bulk and strength (5/5) bilaterally (throughout extremities x4). Coordination: FNF, FLORENCIO, HTS intact. No tremors. Sensation: Light touch intact throughout. No evidence of neglect. Gait: Stable with normal stride and arm swing. Assessment and Plan: ASSESSMENT/PLAN: 1. RLS (restless legs syndrome) - ICD9: 333.94, ICD10: G25.81 (primary diagnosis) Doing well with regards to symptoms but side effects on Klonopin as above. She would like to stop the Klonopin at this time. Advised that uncertain to what degree Klonopin is controlling dream enactment behaviors, and needs to monitor for exacerbation of such symptoms following discontinuation of Klonopin. For RLS control will not change Requip dosing but will add Lyrica such that she will be taking 50mg three times daily but now with an additional dose an midnight. Note, based on renal function likely total dose for day is between 150-300mg per day rather than 150mg daily and thus need to closely monitor for side effects. 2. 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 D/c Klonopin today. If symptoms return, can add melatonin to Lyrica and Requip. 3. Cardiac murmur - ICD9: 785.2, ICD10: R01.1 New/worse. Patient already scheduled to see Dr. Farrar. Jeffy Clark MD Medical Decision Making: Problems: Moderate: 2+ stable chronic illnesses Data: Unique test result(s) reviewed: 1 Risk: Moderate: Drug management Medical Decision Making Level: 4 - Moderate PDMP website checked and validated. All prescriptions have been APPROPRIATELY filled. No suspiciousactivity was identified. 02/20/2023 by Jeffy Clark MD documented in this [facility]06-[facility]23 Miscellaneous Notes* Telephone Encounter - Pretty Juarez - 02/09/2023 11:25 AM EDT Referral, result and demo faxed to Dr. Ag office. Advised office to call patient to schedule. Pretty Juarez * Telephone Encounter - Amy Garcia - 02/07/2023 12:02 PM EDT First available across [facility] based on symptoms is not until mid February so she would like to just be seen by Dr. Cuevas. Please fax order and advise them to call pt when they receive it. * Telephone Encounter - Jeffy Fields MD - 02/03/2023 10:34 AM EDT We have extremely limited gi presence in [place] which is Dr. Cuevas. That is ok to have him see her but it may take months. I would recommend next available where we can have her seen. Orders placed. * Telephone Encounter - Jennifer Linares LPN - 02/03/2023 9:23 AM EDT Patient notified. Verbalized understanding. Is continuing to have pain, states right now it is a 2/3 on pain scale (1-10). States pain has been constant. Is willing to see GI, would like to stay in [facility]. Please review and advise. * Telephone Encounter - Jeffy Fields MD - 02/03/2023 7:18 AM EDT Ultrasound shows coarse texture to liver. May simply be a mild fatty liver. The ducts outside of the liver are slightly enlarged however her liver and pancreas labs were ok. Sometimes a blockage can can do that. How is her pain? Let me know We may want to have gi see her to be on the safe side. documented in this encounterUpper [facility]06-12-2023 Miscellaneous Notes* Telephone Encounter - Pretty Juarez - 02/02/2023 4:50 PM EDT Patient informed and verbalized understanding. She wishes to make an appointment with the [facility], and see Dr. aFrrar. I faxed referral, demo, insurance and results to his office. Pretty Juarez * Telephone Encounter - Jeffy Fields MD - 02/02/2023 4:23 PM EDT Echo shows some back flow across valves that is likely causing the murmur. Can see cardiology to follow. documented in this encounterUpper [facility]06-12-2023 History of Present illness Narrative* Marisabel Andujar RDMS - 02/02/2023 11:30 AM EDT Radiology Service Progress Note PATIENT NAME: Chinyere Alberts DATE OF SERVICE: February 02, 2023 TIME: 11:41 AM PATIENT IDENTITY VERIFICATION COMPLETED USING TWO (2) IDENTIFIERS: Name and Date of confirmedby patient verbally. FALL SCREENING: Has the patient had 2 falls in the last year or 1 fall with injury or currently using an Ambulatory Assistive Device (Walker, Cane, Wheelchair, Crutches, etc.)? No PATIENT GENDER DATA: Female. status: : No status: NO. PATIENT RELEVANT IMPLANT DATA REVIEWED: Not Applicable RADIOLOGY DEPARTMENT: Ultrasound PERIPHERAL IV DATA: Not applicable SIGNED BY: Marisabel Andujar RDMS RVT February 02, 2023 11:41 AM documented in this encounterUpper [facility]06-05-2023 Miscellaneous Notes* Telephone Encounter - Sadaf Finn RN - 01/26/2023 11:20 AM EDT Pt called and is notified of providers results and instructions. Pt voices understanding. She states she drinks 7 cups of water and 1 herbal tea every day. Sadaf Finn RN * Telephone Encounter - Jeffy Fields MD - 01/26/2023 10:19 AM EDT Labs are stable. Other than kidneys show she was slightly dry. Make sure drinking adequate fluids. documented in this encounterUpper [facility]06-02-2023 History of Present illness Narrative* Jeffy Fields MD - 01/23/2023 10:45 AM EDT Patient presents with: 6 Month Exam HPI: Patient presents today for office visit for follow up. RLS: Followed by Dr. Eduardo Flores. Last seen on 10/31/22. Follow up scheduled 02/20/23. Symptoms controlled with Requip and Lyrica. No issues. Worried about her gallbladder. Has noted on and off for a few months. Had noted ruq pain. Did not radiate. Was slightly constipated. No black or bloody stools. No nausea or vomiting Does not remember it occurring with eating. No urinary issues. Last for minutes. Not hours. Can't define more than that. Worst on December. Had a little this am. Bowels are working well this am. GERD: Symptoms controlled on Omeprazole. HLD: No myalgias HTN: Does not monitor BP at home Does not miss doses of Losartan 50 mg daily. Needs refill Denies chest pain and shortness of breath No headaches or dizziness No palpitations No syncope No edema HYPOTHYROID: No energy changes No hair or skin changes No further raynaud's issues. MEDICATIONS: Current Outpatient Medications Medication Sig pregabalin (LYRICA) 50 mg capsule Take 1 capsule by mouth twice daily for 90 days. levothyroxine (SYNTHROID) 50 mcg tablet Take 1 tablet by mouth once daily 6 out of 7 days per week. rOPINIRole (REQUIP) 0.5 mg tablet one tablet at noon and 4PM, 1 tablets at 8PM and 1 tablet at midnight. clonazePAM (KLONOPIN) 0.5 mg tablet Take 1/2 tab QHS and 1/2 tablet at midnight. omeprazole (PRILOSEC) 20 mg capsule Take one tablet by mouth q day simvastatin (ZOCOR) 40 mg tablet Take 1 tablet by mouth daily at bedtime. TURMERIC ORAL Take 1 capsule by mouth once daily. losartan (COZAAR) 50 mg tablet Take 1 tablet by mouth once daily. calcium carbonate/vitamin D3 (CALCIUM WITH VITAMIN D ORAL) Take 1 tablet by mouth once daily. IPRATROPIUM BROMIDE NASAL Use 1 Leburn in the nose twice daily. hypromellose(GENTEAL MODERATE 0.3 % EYE DROPS) To left eye ASPIRIN 81 MG TAB Take one (1) tablet daily . No current facility-administered medications for this visit. ALLERGIES: ALLERGIES Allergen Reactions Genteal Eye Ointmen* Itching Itching,redness, and watery eyes Asa [Salicylates] ringing in ears Flonase [Fluticason* Other: See Comments gets jittery Sulfa (Sulfonamide * Hives PAST MEDICAL HISTORY Diagnosis Date Anemia of chronic renal failure, stage 2 (mild) 05/19/2006 Arthritis left foot and right thumb Esophageal reflux Essential hypertension, benign Essential tremor GERD (gastroesophageal reflux disease) Hiatal hernia 08/25/2018 Other and unspecified hyperlipidemia Senile osteoporosis Unspecified hypothyroidism PAST SURGICAL HISTORY Procedure Laterality Date ADENOIDECTOMY PRIMARY <AGE 14 Adenoidectomy APPENDECTOMY open COLONOSCOPY 11/28/2016 [facility]- diverticulosis. ESOPHAGOGASTRODUODENOSCOPY TRANSORAL DIAGNOSTIC 08/25/2018 EGD NEUROPLASTY &/TRANSPOS MEDIAN NRV CARPAL TUNNE Carpal tunnel decomp- left PAST SURGICAL HISTORY OF salivary gland removed- chronic infection PAST SURGICAL HISTORY OF 06-03-12 right trigger finger releases 1-4 PAST SURGICAL HISTORY OF 06-23-14 left ring trigger finger release RHINP PRIM LAT&ALAR CRTLGS&/ELVTN NASAL TI Rhinoplasty RHYTIDECTOMY NECK W/PLATYSMAL TIGHTENING eye brow lift TONSILLECTOMY PRIMARY/SECONDARY <AGE 14 Tonsillectomy TOTAL ABDOMINAL HYSTERECT W/WO RMVL TUBE OVARY Hysterectomy, DHIRAJ FAMILY HISTORY Problem Relation Age of Onset Heart Mother massive HI, in her 70's other (Other) Father unknown Alzheimer's Disease Sister Cancer Maternal Grandmother GI CANCER Heart Maternal Aunt Diabetes Maternal Aunt Heart Maternal Uncle Social History Tobacco Use Smoking status: Never Smokeless tobacco: Never Vaping Use Vaping Use: Never used Substance Use Topics Alcohol use: No Drug use: No Reviewed current medications, allergies, past medical history, surgical history, family history andsocial history today. REVIEW OF SYSTEMS All other reviewed and negative other than HPI. HEALTH MAINTENANCE: Reviewed health maintenance issues today and recommended the following in detail. ADVANCE DIRECTIVE DISCUSSION - on file. DEPRESSION ASSESSMENT Never done VITALS: BP 140/50 Pulse 67 Ht 154.9 cm (5' 1) Wt 47.4 kg (104 lb 9.6 oz) SpO2 97% BMI 19.76 kg/m Last 4 Encounter Wt Readings: Date: Wt: 10/31/2022 47 kg (103 lb 9.6 oz) 09/23/2022 46.7 kg (103 lb) 07/23/2022 46.3 kg (102 lb) 06/30/2022 45.8 kg (101 lb) PHYSICAL EXAMINATION: General appearance: Well appearing, alert, in no acute distress, well-hydrated, well nourished. Skin: Skin color, texture, turgor normal, no suspicious rashes or lesions Head: Normocephalic, no masses, lesions, tenderness or abnormalities Neck: Supple, no adenopathy; thyroid symmetric, normal size, no bruits Lungs: Lungs clear to auscultation. No wheezing, rhonchi, rales Heart: RRR, II/ murmur noted. Normal s1 and s2 Abdomen: Normal abdominal exam, Abdomen soft, non-tender. Bowel sounds normal. No masses, organomegaly Extremities: No deformities, edema, skin discoloration, clubbing or cyanosis. Good capillary refill. Musculoskeletal: No joint swelling, deformity, or tenderness ASSESSMENT/PLAN: 1. Mixed hyperlipidemia - ICD9: 272.2, ICD10: E78.2 (primary diagnosis) - Controlled - Counseled on healthy diet and regular exercise 2. Essential hypertension, benign - ICD9: 401.1, ICD10: I10 - Controlled - Continue current medications - Encouraged sodium restriction, DASH or Mediterranean diet - LOSARTAN 50 MG TABLET 3. Essential tremor - ICD9: 333.1, ICD10: G25.0 - stable. 4. Restless legs syndrome - ICD9: 333.94, ICD10: G25.81 - per neuro. Continue to have issues 5. Hypothyroidism, unspecified type - ICD9: 244.9, ICD10: E03.9 - check labs. - TSH BLD 6. Stage 3 chronic kidney disease, unspecified whether stage 3a or 3b CKD (HCC) - ICD9: 585.3, ICD10: N18.30 - follow labs. 7. Prediabetes - ICD9: 790.29, ICD10: R73.03 - HGB A1C 8. OSTEOPOROSIS POSTMENOPAUSAL - ICD9: 733.01, ICD10: M81.0 - would not follow it given her age. 9. Heart murmur - ICD9: 785.2, ICD10: R01.1 - check murmur - ECHO - PERFLUTREN LIPID MICROSPHERES 1.1 MG/ML INJECTION IN NS 10 ML - SODIUM CHLORIDE 0.9 % (FLUSH) INJECTION SYRINGE 10. RUQ pain - ICD9: 789.01, ICD10: R10.11 US ABD RIGHT UPPER QUADRANT - CBC + DIFF - COMP METABOLIC PANEL - LIPASE BLD Stool softener. - Red flags for re-assessment reviewed with patient in detail. Exam is benign today. Recheck in one to two weeks. Jeffy Fields MD documented in this encounterUpper [facility]05-08-2023 Miscellaneous Notes* Telephone Encounter - Elvia Mcrae LPN - 12/29/2022 3:26 PM EDT Patient has been identified by name and date of : Yes Requested Prescriptions Pending Prescriptions Disp Refills levothyroxine (SYNTHROID) 50 mcg tablet 72 tablet 1 Sig: Take 1 tablet by mouth once daily 6 out of 7 days per week. RX INSTRUCTIONS: Patient aware RX will be sent to pharmacy. No need to notify patient. Elvia Mcrae LPN documented in this encounterUpper [facility] Center03-21-2023 Miscellaneous Notes* Telephone Encounter - Marisabel Aguillon LPN - 11/11/2022 2:40 PM EDT See other TE dated 11/11/22. Marisabel Aguillon LPN * Telephone Encounter - Leandro Martines LPN - 11/11/2022 12:00 PM EDT Routed to Neurology for review. Leandro Martines LPN documented in this [facility] History of Present illness Narrative* Jeffy Clark Jr., MD - 10/31/2022 10:28 AM EST ESTABLISHED PATIENT VISIT CHIEF COMPLAINT: Follow Up HISTORY OF PRESENT ILLNESS: Chinyere Alberts is a 87 year old female, BMI 19.58 kg/m2 with a PMH significant for and per last visit note with Lorraine NEWELL on 09/23/22: ASSESSMENT/PLAN: 1. Medication monitoring encounter - ICD9: V58.83, ICD10: Z51.81 (primary diagnosis) - TOX SCREEN ROUT UR 2. 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 Notes improvement in scary dreams and calling out at night. Notes that she is still having trouble falling asleep after she urinates at 3:05am every night. Would like to increase to a full 0.5 mg tablet but notes that she became dizzy in the past on this dose, will not increase at this time due to concern for falls. 3. Restless legs syndrome - ICD9: 333.94, ICD10: G25.81 - Continue on 50mg Lyrica BID 4. Tremor - ICD9: 781.0, ICD10: R25.1 - Patient notes that this is steadily worsening, however, no tremor is present on exam today. Patient when asked about her conditions, states I dont know what to tell you. States she is jerking in the RLE where knee was replaced and before was in both legs. However, now having spasms in theleft leg. She has cut her water back due to a low sodium lab, but then states that was 2 years ago.States when has spasm in leg wakes her up. Spasms usually occur once in bed and almost always between 4-6 AM. Spasms are not nightly. Lyrica 50mg- taking one capsule noon and one QHS. Ropinirole 0.5mg- taking one tablet at noon and 4PM, 1 tab at 8PM and 1 tablet at midnight. Klonopin 0.5mg- taking 1/2 tablet at midnight. No issues falling asleep to start the night. States from 4PM on does not sleep well at all. However, she is not tired at that time. Again going to bed 8 hours earlier. When wakes at midnight up long enough just to use the bathroom and take pill. Pt cannot tell any difference with the Lyrica. Pt would like to stop. Pt then states occasionally can be in bed until 6AM. Very inconsistent history regarding wake times. REVIEW OF SYSTEMS GENERAL:No weight loss, malaise or fevers. HEENT:Negative for frequent or significant headaches, No changes in hearing or vision, no nose bleeds or other nasal problems NECK:Negative for lumps, goiter, pain and significant neck swelling RESPIRATORY: Negative for cough, wheezing or shortness of breath. CARDIOVASCULAR: Negative for chest pain, leg swelling or palpitations. GASTROINTESTINAL: Negative for abdominal discomfort, blood in stools or black stools or change in bowel habits GENITOURINARY: No history of dysuria, frequency or incontinence MUSCULOSKELETAL: Negative for joint pain or swelling, back pain or muscle pain. NEUROLOGIC:See HPI. SKIN:Negative for lesions, rash, and itching. LAB/IMAGING: Those performed since patient's last visit have been reviewed. WBC (k/uL) Date Value 09/01/2022 3.96 RBC (m/uL) Date Value 09/01/2022 4.31 Hemoglobin (g/dL) Date Value 09/01/2022 13.2 Hematocrit (%) Date Value 09/01/2022 39.2 MCV (fL) Date Value 09/01/2022 91.0 MCH (pg) Date Value 09/01/2022 30.6 MCHC (g/dL) Date Value 09/01/2022 33.7 RDW-CV (%) Date Value 09/01/2022 12.6 Platelet Count (k/uL) Date Value 09/01/2022 177 MPV (fL) Date Value 09/01/2022 9.5 Glucose (mg/dL) Date Value 09/01/2022 113 (H) BUN (mg/dL) Date Value 09/01/2022 19 Creatinine (mg/dL) Date Value 09/01/2022 0.99 (H) Sodium (mmol/L) Date Value 09/01/2022 136 Potassium (mmol/L) Date Value 09/01/2022 4.2 Chloride (mmol/L) Date Value 09/01/2022 100 CO2 (mmol/L) Date Value 09/01/2022 25 Protein, Total (g/dL) Date Value 08/13/2022 6.6 Albumin (g/dL) Date Value 08/13/2022 4.3 Calcium, Total (mg/dL) Date Value 09/01/2022 9.8 Alkaline Phosphatase (U/L) Date Value 08/13/2022 66 Bilirubin, Total (mg/dL) Date Value 08/13/2022 0.2 AST (U/L) Date Value 08/13/2022 20 ALT (U/L) Date Value 08/13/2022 16 Hep C Antibody IA (no units) Date Value 05/01/2011 Negative MEDICATIONS: pregabalin (LYRICA) 50 mg capsule Take 1 capsule by mouth twice daily for 90 days. levothyroxine (SYNTHROID) 50 mcg tablet Take 1 tablet by mouth once daily 6 out of 7 days per week. omeprazole (PRILOSEC) 20 mg capsule Take one tablet by mouth q day simvastatin (ZOCOR) 40 mg tablet Take 1 tablet by mouth daily at bedtime. rOPINIRole (REQUIP) 0.5 mg tablet one tablet at noon and 4PM, 1 1/2 tablets at 8PM and 1/2 tablet at midnight. losartan (COZAAR) 50 mg tablet Take 1 tablet by mouth once daily. calcium carbonate/vitamin D3 (CALCIUM WITH VITAMIN D ORAL) Take 1 tablet by mouth once daily. IPRATROPIUM BROMIDE NASAL Use 1 Leburn in the nose twice daily. hypromellose(GENTEAL MODERATE 0.3 % EYE DROPS) To left eye ASPIRIN 81 MG TAB Take one (1) tablet daily . clonazePAM (KLONOPIN) 0.5 mg tablet Take 1/2 tab QHS. TURMERIC ORAL Take 1 capsule by mouth once daily. HISTORIES PAST MEDICAL HISTORY Diagnosis Date Anemia of chronic renal failure, stage 2 (mild) 05/19/2006 Arthritis left foot and right thumb Esophageal reflux Essential hypertension, benign Essential tremor GERD (gastroesophageal reflux disease) Hiatal hernia 08/25/2018 Other and unspecified hyperlipidemia Senile osteoporosis Unspecified hypothyroidism FAMILY HISTORY Problem Relation Age of Onset Heart Mother massive HI, in her 70's other (Other) Father unknown Alzheimer's Disease Sister Cancer Maternal Grandmother GI CANCER Heart Maternal Aunt Diabetes Maternal Aunt Heart Maternal Uncle SOCIAL HISTORY Social History Tobacco Use Smoking status: Never Smokeless tobacco: Never Vaping Use Vaping Use: Never used Substance Use Topics Alcohol use: No Drug use: No PHYSICAL EXAMINATION BP 121/64 Pulse 73 Temp 36 C (96.8 F) Resp 18 Wt 47 kg (103 lb 9.6 oz) BMI 19.58 kg/m GENERAL EXAM: General appearance: NAD, pleasant. HEENT: NC/AT, nasal congestion absent, no oral lesions, membranes moist. NECK: No masses, supple. Lungs: CTA bilaterally. CV: RRR nl S1, S2. No carotid bruits. Extr: No cyanosis, clubbing or edema. Skin: Cool to touch. NEUROLOGICAL EXAM: General: Awake, alert, oriented x3 (person,place,time), speech fluent, no dysarthria; comprehension, naming, repetition intact. CN: PERRL, EOMI and without nystagmus, VFF to confrontation, facial sensation and strength are normal and symmetric, hearing is intact to finger rub bilaterally, palate and tongue movements are intact and symmetric. SCM and trapezius strength normal. Motor: Normal tone, bulk and strength (5/5) bilaterally (throughout extremities x4). Coordination: FNF, FLORENCIO, HTS intact. No tremors. Sensation: Light touch and vibration intact throughout. No evidence of neglect. Gait: Stable with normal stride and arm swing. Assessment and Plan: ASSESSMENT/PLAN: 1. RLS (restless legs syndrome) - ICD9: 333.94, ICD10: G25.81 (primary diagnosis) Patient continues to reports leg kicking and spasms during the night at 4AM -- likely after the effects of her last dose of Requip have worn off. Lyrica having no influence on symptoms and will discontinue. Patient would like to try to increase Klonopin dose. Side effect of dizziness in past but when took 0.5mg at one time (not split). Reviewed SE and ADRs. Patient will now take 0.25mg of Klonopin at bedtime and then again at midnight-1AM (4-5 hours apart). No changes made to Requip dosing as above. I raised my concerns regarding polypharmacy with pt but she is reporting no side effects. Needclose monitoring with follow up in 3 months. Note UDS unremarkable last visit although benzo confirmation not completed (suspect Klonopin did not show due to low dose). Also discussed with pt need todrink adequate water as I have not noted an abnormal Na in recent labs. Also explained that if she continues to go to bed earlier she will naturally wake up earlier. Thus, may want to try to stay up later to sleep in. She will consider. 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 No changes in meds for such behaviors but increasing dose for RLS as above. Jeffy Clark MD I spent a total of 32 minutes on the date of the service which included preparing to see the patient, [id number] patient care, completing clinical documentation, obtaining and/or reviewing separately obtained history, performing a medically appropriate examination, counseling and educating the pat ient/family/caregiver, ordering medications, tests, or procedures, and communicating results to thepatient/family/caregiver. [facility] Miscellaneous Notes* Telephone Encounter - Sis Montague MA - 09/29/2022 4:26 PM EST Received prior authorization request from [facility] for medication Lyrica 100 MG. Received decision: approved through 08/24/2022-09/29/2023. Fax scanned into chart. Sis Montague MA [facility]23 Instructions* Patient Instructions* Radha Devi PA-C - 09/23/2022 4:25 PM EST Klonopin 0.25 mg at bedtime Lyrica 50mg twice a day Follow up with Dr. Clark on 11/01/22 Urine testing documented [facility]23 History of Present illness Narrative* Radha Devi PA-C - 09/23/2022 3:51 PM EST ESTABLISHED PATIENT VISIT CHIEF COMPLAINT: Medication refill Last appointment 06/30/[address] Clark ASSESSMENT/PLAN: 1. Tremor - ICD9: 781.0, ICD10: R25.1 (primary diagnosis) Worse since last seen. Patient not wanting to add new med. Will try to control with Lyrica by increasing from 25 to 50mg BID. 2. RLS (restless legs syndrome) - ICD9: 333.94, ICD10: G25.81 Stable, although suspect leg jerking described over last 3 months was associated with RLS exacerbation (? related to meds (received correct dose) given with new refill symptoms resolved) or due to surgery with nerve involvement and need for rest. As now controlled will keep Requip as Rx'd above. However, increasing Lyrica as above. Pt would like to stop Klonopin although no side effects at present. 3. 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 While on Klonopin, only 0.25mg QHS. She would like to stop Klonopin. Discussed risks vs benefits. She will discontinue and provide us update in 1-2 weeks. However if dream enactment recurs then will restart Klonopin at 0.25mg QHS. HISTORY OF PRESENT ILLNESS: Chinyere Alberts is a 87 year old female, There were no vitals taken for this visit. with a PMH significant for GERD, arthritis, hyperlipidemia, hypothyroidism. Patient presents for follow-up for restless leg syndrome, treatment active behavior, tremor. At last appointment she stopped her Klonopin 0.25 mg at night, however, recently reached out to have this reinstated. Patient was scheduled for follow-up and will give him 1 month supply of Klonopin. She states the Klonopin has helped her dreams, notes that she has scary nightmares without them. She also notes that it stops her from calling out at night. She is unsure if she acts out her dreams as she does not sleep with her , they both have single beds. She does note that she has difficulty falling back asleep after she urinates at 3:05 AM every morning. She states that she does fall back asleep on and off the rest of the night, but he is usually up at 6 AM after falling asleep around 10 PM. She is unsure if the Klonopin helps her stay asleep, she states that she may want to increase to 0.5 mg at night, however notes that when she was on this dosage in the past she became very unsteady. She states that it does make her dizzy when she takes this dosage. She notes that she has tried melatonin in the past but this was not helpful, even that was many years ago. Regarding her tremor, she notes that it has gradually gotten worse over the years, unsure if the Lyrica is helping. She currently had this increased from last visit to 100 mg daily, no side effects are appreciated at this time. Patient also notes that she experiences jerking movements for her restless leg syndrome, she does note that this occurs in the morning but more in the afternoon and evening. She notes that right now she is in physical therapy for her right knee after surgery. She states after the surgery she noticed that the jerking movements stopped in her left leg but persist in her right leg. REVIEW OF SYSTEMS The remainder of the ROS was reviewed and is negative. LAB/IMAGING: Those performed since patient's last visit have been reviewed. None MEDICATIONS: clonazePAM (KLONOPIN) 0.5 mg tablet Take 1/2 tab QHS. levothyroxine (SYNTHROID) 50 mcg tablet Take 1 tablet by mouth once daily 6 out of 7 days per week. omeprazole (PRILOSEC) 20 mg capsule Take one tablet by mouth q day simvastatin (ZOCOR) 40 mg tablet Take 1 tablet by mouth daily at bedtime. TURMERIC ORAL Take 1 capsule by mouth once daily. rOPINIRole (REQUIP) 0.5 mg tablet one tablet at noon and 4PM, 1 1/2 tablets at 8PM and 1/2 tablet at midnight. losartan (COZAAR) 50 mg tablet Take 1 tablet by mouth once daily. calcium carbonate/vitamin D3 (CALCIUM WITH VITAMIN D ORAL) Take 1 tablet by mouth once daily. IPRATROPIUM BROMIDE NASAL Use 1 Leburn in the nose twice daily. hypromellose(GENTEAL MODERATE 0.3 % EYE DROPS) To left eye ASPIRIN 81 MG TAB Take one (1) tablet daily . HISTORIES PAST MEDICAL HISTORY Diagnosis Date Anemia of chronic renal failure, stage 2 (mild) 05/19/2006 Arthritis left foot and right thumb Esophageal reflux Essential hypertension, benign Essential tremor GERD (gastroesophageal reflux disease) Hiatal hernia 08/25/2018 Other and unspecified hyperlipidemia Senile osteoporosis Unspecified hypothyroidism FAMILY HISTORY Problem Relation Age of Onset Heart Mother massive HI, in her 70's other (Other) Father unknown Alzheimer's Disease Sister Cancer Maternal Grandmother GI CANCER Heart Maternal Aunt Diabetes Maternal Aunt Heart Maternal Uncle SOCIAL HISTORY Social History Tobacco Use Smoking status: Never Smokeless tobacco: Never Vaping Use Vaping Use: Never used Substance Use Topics Alcohol use: No Drug use: No PHYSICAL EXAMINATION There were no vitals taken for this visit. GENERAL EXAM: General appearance: NAD, pleasant. HEENT: NC/AT, nasal congestion absent, no oral lesions, membranes moist. NECK: No masses, supple. Lungs: Breathing comfortably Extr: Moves all extremities, tenderness to the right knee Skin: Cool to touch. No rash. NEUROLOGICAL EXAM: General: Awake, alert, oriented x3 (person,place,time), speech fluent, no dysarthria; comprehension, naming, repetition intact. Short and dietetic aide memory intact. CN: PERRL, EOMI and without nystagmus, VFF to confrontation, facial sensation and strength are normal and symmetric, hearing is intact to finger rub bilaterally, palate and tongue movements are intact and symmetric. SCM and trapezius strength normal. Motor: Normal tone, bulk and strength (5/5) bilaterally (throughout extremities x4). Reflexes: 1/4 and symmetric, Coordination: FNF. No tremors on exam today Sensation: LT Gait: Narrow based and stable with normal stride and arm swing. Assessment and Plan: ASSESSMENT/PLAN: 1. Medication monitoring encounter - ICD9: V58.83, ICD10: Z51.81 (primary diagnosis) - TOX SCREEN ROUT UR 2. 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 Notes improvement in scary dreams and calling out at night. Notes that she is still having trouble falling asleep after she urinates at 3:05am every night. Would like to increase to a full 0.5 mg tablet but notes that she became dizzy in the past on this dose, will not increase at this time due to concern for falls. 3. Restless legs syndrome - ICD9: 333.94, ICD10: G25.81 - Continue on 50mg Lyrica BID 4. Tremor - ICD9: 781.0, ICD10: R25.1 - Patient notes that this is steadily worsening, however, no tremor is present on exam today. Radha Devi PA-C I spent a total of 30 minutes on the date of the service which included preparing to see the patient, [id number] patient care, completing clinical documentation, obtaining and/or reviewing separately obtained history, performing a medically appropriate examination, counseling and educating the pat ient/family/caregiver, and ordering medications, tests, or procedures. PDMP website checked and validated. All prescriptions have been APPROPRIATELY filled. No suspiciousactivity was identified. 09/23/2022 by Radha Devi PA-C documented [facility]01-[facility]-2023 Miscellaneous Notes* Telephone Encounter - Nelli Long LPN - 09/01/2022 11:41 AM EST Pt notified via [employer]. PSS- please contact pt to make appt. Thank you! Anh Long LPN * Telephone Encounter - Jeffy Clark Jr., MD - 09/01/2022 11:33 AM EST PDMP website checked and validated. All prescriptions have been APPROPRIATELY filled. No suspiciousactivity was identified. 09/01/2022 by Jeffy Clark MD Rx provided but needs sooner refill. Please schedule with sleep ANDREW or neur ANDREW in [place] for TIFF. Thank you, Jeffy Clark MD * Telephone Encounter - Sis Montague MA - 09/01/2022 11:23 AM EST Per message 07/16/22 with 2 week update post stopping Klonopin: Advised to restart klonopin per persistent sleep disruption. TERELL: 06/30/22 with RAMIREZ NOV: 10/31/22 with RAMIREZ Montague MA Assessment and Plan: ASSESSMENT/PLAN: 1. Tremor - ICD9: 781.0, ICD10: R25.1 (primary diagnosis) Worse since last seen. Patient not wanting to add new med. Will try to control with Lyrica by increasing from 25 to 50mg BID. 2. RLS (restless legs syndrome) - ICD9: 333.94, ICD10: G25.81 Stable, although suspect leg jerking described over last 3 months was associated with RLS exacerbation (? related to meds (received correct dose) given with new refill symptoms resolved) or due to surgery with nerve involvement and need for rest. As now controlled will keep Requip as Rx'd above. However, increasing Lyrica as above. Pt would like to stop Klonopin although no side effects at present. 3. 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 While on Klonopin, only 0.25mg QHS. She would like to stop Klonopin. Discussed risks vs benefits. She will discontinue and provide us update in 1-2 weeks. However if dream enactment recurs then will restart Klonopin at 0.25mg QHS. Jeffy Clark MD documented in [facility] encounter[facility]01-04-2023 Miscellaneous Notes* Telephone Encounter - Leandro Martines LPN - 08/27/2022 1:32 PM EST Pt notified of results/provider response. She verbalized understanding. Leandro Martines LPN * Telephone Encounter - Patricia Vogt LPN - 08/19/2022 7:45 PM EST Left a message for pt to call the office and ask to speak to a nurse. Patricia Vogt LPN * Telephone Encounter - Veronika Nguyen RN - 08/14/2022 1:46 PM EST VM left for patient to call PCP office for provider's message below. Veronika Nguyen RN * Telephone Encounter - Jeffy Fields MD - 08/14/2022 1:37 PM EST Labs are overall ok. Her white count is minimally down and her kidney function is decreased. Push fluids. Recheck labs in two weeks. documented in this encounter[facility]12-21-2022 Miscellaneous Notes* Telephone Encounter - Margaret Wyatt RN - 08/13/2022 4:54 PM EST See nurse triage note 08/11/22. Margaret Wyatt RN * Telephone Encounter - Elvia Mcrae LPN - 08/11/2022 2:10 PM EST Patient sends below [employer] message and Dr Fields would like triage to call patient. Jul. coming out of [place] walking to my car, my ring finger from tip to first knuckle hurt and got very pale. pinked up with warm water. has happened twice since. would like to talk with the dietitian again. documented in this encounterUpper [facility] Center12-21-2022 Miscellaneous Notes* Telephone Encounter - Margaret Wyatt RN - 08/13/2022 4:53 PM EST Seen in office by Gloria on 08/13. Margaret Wyatt RN * Telephone Encounter - Jeffy Fields MD - 08/11/2022 1:03 PM EST ?? Can we triage this. Not a dietary problem That can be rheumatologic or circulatory documented in this encounterUpper Valley [facility] Center12-21-2022 Instructions* Patient Instructions* Gloria Garibay APRN.CIVIL ENGINEERING PROJECT DESIGNER - 08/13/2022 11:46 AM EST Get the labs. Schedule the ultrasound. 3. Avoid cold/extreme temps. 4. If occurring more frequently or causing any pain/skin breakdown, we need ro know. documented in this encounterUpper [facility] Center12-21-2022 History of Present illness Narrative* Gloria Garibay APRN.CIVIL ENGINEERING PROJECT DESIGNER - 08/13/2022 11:17 AM EST This is a 87 year old female who presents today with: Patient presents with: Acute Visit: L ring finger- started 07/28 she noticed change in color in tip of finger when she was out in the cold, finger turned white. She put the finger in warm water and then the color returned. HISTORY OF PRESENT ILLNESS: Chinyere Alberts is a 87 year old female. Patient presents with: Acute Visit: L ring finger- started 07/28 she noticed change in color in tip of finger when she was out in the cold, finger turned white. She put the finger in warm water and then the color returned. Pt presents today with complaint of a finger that has been turning white. Started 07/28 -- got home and her left ring finger was white. Refers that it has happened a couple of times since that time. will feel tingling. Doesn't hurt. Usually will happen when her fingers are cold when she is outside. She will warm her finger with warm water when it happens. Only affecting the ring finger of the left hand. No skin breakdown. Denies symptoms in any other fingers or toes. Denies any history of autoimmune processes. PAST MEDICAL HISTORY: PAST MEDICAL HISTORY Diagnosis Date Anemia of chronic renal failure, stage 2 (mild) 05/19/2006 Arthritis left foot and right thumb Esophageal reflux Essential hypertension, benign Essential tremor GERD (gastroesophageal reflux disease) Hiatal hernia 08/25/2018 Other and unspecified hyperlipidemia Senile osteoporosis Unspecified hypothyroidism PAST SURGICAL HISTORY Procedure Laterality Date ADENOIDECTOMY PRIMARY <AGE 14 Adenoidectomy APPENDECTOMY open COLONOSCOPY 11/28/2016 [place]- diverticulosis. ESOPHAGOGASTRODUODENOSCOPY TRANSORAL DIAGNOSTIC 08/25/2018 EGD NEUROPLASTY &/TRANSPOS MEDIAN NRV CARPAL TUNNE Carpal tunnel decomp- left PAST SURGICAL HISTORY OF salivary gland removed- chronic infection PAST SURGICAL HISTORY OF 06-03-12 right trigger finger releases 1-4 PAST SURGICAL HISTORY OF 06-23-14 left ring trigger finger release RHINP PRIM LAT&ALAR CRTLGS&/ELVTN NASAL TI Rhinoplasty RHYTIDECTOMY NECK W/PLATYSMAL TIGHTENING eye brow lift TONSILLECTOMY PRIMARY/SECONDARY <AGE 14 Tonsillectomy TOTAL ABDOMINAL HYSTERECT W/WO RMVL TUBE OVARY Hysterectomy, DHIRAJ ALLERGIES Genteal Eye Ointment [Other], Asa [Salicylates], Flonase [Fluticasone], and Sulfa (Sulfonamide Antibiotics) MEDICATIONS Current Outpatient Medications Medication Sig levothyroxine (SYNTHROID) 50 mcg tablet Take 1 tablet by mouth once daily 6 out of 7 days per week. omeprazole (PRILOSEC) 20 mg capsule Take one tablet by mouth q day simvastatin (ZOCOR) 40 mg tablet Take 1 tablet by mouth daily at bedtime. TURMERIC ORAL Take 1 capsule by mouth once daily. rOPINIRole (REQUIP) 0.5 mg tablet one tablet at noon and 4PM, 1 1/2 tablets at 8PM and 1/2 tablet at midnight. losartan (COZAAR) 50 mg tablet Take 1 tablet by mouth once daily. calcium carbonate/vitamin D3 (CALCIUM WITH VITAMIN D ORAL) Take 1 tablet by mouth once daily. IPRATROPIUM BROMIDE NASAL Use 1 Leburn in the nose twice daily. hypromellose(GENTEAL MODERATE 0.3 % EYE DROPS) To left eye ASPIRIN 81 MG TAB Take one (1) tablet daily . No current facility-administered medications for this visit. FAMILY HISTORY Problem Relation Age of Onset Heart Mother massive HI, in her 70's other (Other) Father unknown Alzheimer's Disease Sister Cancer Maternal Grandmother GI CANCER Heart Maternal Aunt Diabetes Maternal Aunt Heart Maternal Uncle Social History Tobacco Use Smoking status: Never Smokeless tobacco: Never Vaping Use Vaping Use: Never used Substance Use Topics Alcohol use: No Drug use: No EXAM: BP 118/66 Pulse 74 Resp 18 SpO2 98% PHYSICAL EXAM: General Appearance: Well appearing, alert, in no acute distress, well-hydrated, well nourished.. Skin: Skin color, texture, turgor normal, no suspicious rashes or lesions. Head: Normocephalic, no masses, lesions, tenderness or abnormalities. Eyes: Anicteric sclera. Extraocular movements are intact. . Lungs: Lungs clear to auscultation. No wheezing, rhonchi, rales.. Heart: RRR without murmur, gallop, or rubs. No ectopy. Ext: negative José's test. Fingers pink. Strong radial pulses. Good cap refill. Neurologic: Gait normal. ASSESSMENT/PLAN: 1. Raynaud's phenomenon without gangrene - ICD9: 443.0, ICD10: I73.00 (primary diagnosis) Patient with Raynaud's symptoms. encouraged to avoid temperature extremes. We will go ahead and get basic lab work. Rule out autoimmune. We will go ahead and get a vascular ultrasound of the left arm. Discussed with patient she should notify provider of any new or worsening of the symptoms. - CBC + DIFF - CHARLETTE BLOOD - TSH BLD - T4 FREE/FREE THYROX - SED RATE WESTERGREN - C-REACTIVE PROTEIN (CRP) - COMP METABOLIC PANEL - URINALYSIS, WITH MICROSCOPIC - US ARM ARTERIAL UNL VAS LAB 2. 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 Patient's questions answered appropriately. Medications and potential side effects were discussed and patient voices understanding. Return to the office as scheduled or as needed for worsening/no improvement. Gloria Garibay APRN.CNP The patient indicates understanding of these issues and agrees with the plan. This note was partially generated using [employer] voice recognition system. Note was reviewed for accuracy. There may be minor misspellings or grammar miscues with [employer] voice recognition. documented in this encounter[facility]12[facility]20-2022 Miscellaneous Notes* Telephone Encounter - Gloria Garibay APRN.CNP - 08/12/2022 12:32 PM EST Will see tomorrow, as scheduled. * Telephone Encounter - Sadaf Finn RN - 08/12/2022 11:55 AM EST Pt called and is notified of providers message and instructions. Pt voices understanding. Pt scheduled with Gloria Garibay BIOINFORMATICIST tomorrow. Sadaf Finn RN * Telephone Encounter - Jeffy Fields MD - 08/12/2022 11:41 AM EST Keep warm. If severe and does not go away, to Er Needs seen in next week by one of us * Telephone Encounter - Veronika Nguyen RN - 08/12/2022 10:12 AM EST Patient returned call and further triage information obtained. Patient states she noticed on 07/28/22 that her left ring finger became pale and cold when she was coming out of a store and it was cold outside. She came home and soaked her finger in warm water and the color returned and became warm again. She states this has happened one more additional time whenshe was out in the cold while shopping. Denies any injury, no tight rings on finger (they are loose), no pain. Currently finger is normal. Patient asking what she should do if this happens again? Veronika Nguyen RN * Telephone Encounter - Veronika Nguyen RN - 08/11/2022 2:48 PM EST VM left for patient to call PCP office for further triage of symptoms. Veronika Nguyen RN documented in this encounterUpper [facility]11-30-2022 Miscellaneous Notes* Telephone Encounter - Naomi Go Ma - 07/23/2022 3:20 PM EST message sent to patient to review. Naomi Go Ma * Telephone Encounter - Jeffy Clark Jr., MD - 07/23/2022 1:39 PM EST Please see if patient has 25mg Lyrcia caps still. If so, would then recommend trying to take 1 capsule with breakfast, lunch and dinner or 7-8A, Noon-1PM, and 5-6 PM. Jeffy Clark MD documented in this encounterUpper [facility] Center11-30-2022 History of Present illness Narrative* Jeffy Fields MD - 07/23/2022 2:22 PM EST Patient presents with: Leg Cramps HPI: Patient presents today for office visit for leg muscle cramps in B/L calves. Started on 07/08/22. Has had 8 episodes. Very painful. Increased water to see if that would help. Has not noticed much difference. Has had once before. Drinking helped. No bowel changes. No bloody or black stools. No heart burn or gi issues. Still on simvastatin No synthroid changes. Remains on treatment for restless legs. The jerking is improving. No back pain. No numbness. Usually happening overnight at 4-6 am. Standing will improve it. They are adjusting lyrica MEDICATIONS: Current Outpatient Medications Medication Sig levothyroxine (SYNTHROID) 50 mcg tablet Take 1 tablet by mouth once daily 6 out of 7 days per week. omeprazole (PRILOSEC) 20 mg capsule Take one tablet by mouth q day simvastatin (ZOCOR) 40 mg tablet Take 1 tablet by mouth daily at bedtime. TURMERIC ORAL Take 1 capsule by mouth once daily. rOPINIRole (REQUIP) 0.5 mg tablet one tablet at noon and 4PM, 1 1/2 tablets at 8PM and 1/2 tablet at midnight. losartan (COZAAR) 50 mg tablet Take 1 tablet by mouth once daily. calcium carbonate/vitamin D3 (CALCIUM WITH VITAMIN D ORAL) Take 1 tablet by mouth once daily. IPRATROPIUM BROMIDE NASAL Use 1 Leburn in the nose twice daily. hypromellose(GENTEAL MODERATE 0.3 % EYE DROPS) To left eye ASPIRIN 81 MG TAB Take one (1) tablet daily . No current facility-administered medications for this visit. ALLERGIES: ALLERGIES Allergen Reactions Genteal Eye Ointmen* Itching Itching,redness, and watery eyes Asa [Salicylates] ringing in ears Flonase [Fluticason* Other: See Comments gets jittery Sulfa (Sulfonamide * Hives PAST MEDICAL HISTORY Diagnosis Date Anemia of chronic renal failure, stage 2 (mild) 05/19/2006 Arthritis left foot and right thumb Esophageal reflux Essential hypertension, benign Essential tremor GERD (gastroesophageal reflux disease) Hiatal hernia 08/25/2018 Other and unspecified hyperlipidemia Senile osteoporosis Unspecified hypothyroidism PAST SURGICAL HISTORY Procedure Laterality Date ADENOIDECTOMY PRIMARY <AGE 14 Adenoidectomy APPENDECTOMY open COLONOSCOPY 11/28/2016 [facility]- diverticulosis. ESOPHAGOGASTRODUODENOSCOPY TRANSORAL DIAGNOSTIC 08/25/2018 EGD NEUROPLASTY &/TRANSPOS MEDIAN NRV CARPAL TUNNE Carpal tunnel decomp- left PAST SURGICAL HISTORY OF salivary gland removed- chronic infection PAST SURGICAL HISTORY OF 06-03-12 right trigger finger releases 1-4 PAST SURGICAL HISTORY OF 06-23-14 left ring trigger finger release RHINP PRIM LAT&ALAR CRTLGS&/ELVTN NASAL TI Rhinoplasty RHYTIDECTOMY NECK W/PLATYSMAL TIGHTENING eye brow lift TONSILLECTOMY PRIMARY/SECONDARY <AGE 14 Tonsillectomy TOTAL ABDOMINAL HYSTERECT W/WO RMVL TUBE OVARY Hysterectomy, DHIRAJ FAMILY HISTORY Problem Relation Age of Onset Heart Mother massive HI, in her 70's other (Other) Father unknown Alzheimer's Disease Sister Cancer Maternal Grandmother GI CANCER Heart Maternal Aunt Diabetes Maternal Aunt Heart Maternal Uncle Social History Tobacco Use Smoking status: Never Smokeless tobacco: Never Vaping Use Vaping Use: Never used Substance Use Topics Alcohol use: No Drug use: No Reviewed current medications, allergies, past medical history, surgical history, family history andsocial history today. REVIEW OF SYSTEMS All other reviewed and negative other than HPI. VITALS: BP 142/54 Pulse 63 Ht 154.9 cm (5' 1) Wt 46.3 kg (102 lb) SpO2 99% BMI 19.27 kg/m Last 4 Encounter Wt Readings: Date: Wt: 06/30/2022 45.8 kg (101 lb) 05/12/2022 46.4 kg (102 lb 6.4 oz) 04/10/2022 0 kg () 03/27/2022 0 kg () PHYSICAL EXAMINATION: General appearance: Well appearing, alert, in no acute distress, well-hydrated, well nourished. Skin: Skin color, texture, turgor normal, no suspicious rashes or lesions Head: Normocephalic, no masses, lesions, tenderness or abnormalities Back: Normal exam Lungs: Lungs clear to auscultation. No wheezing, rhonchi, rales Heart: RRR without murmur, gallop, or rubs. No ectopy Abdomen: Normal abdominal exam, Abdomen soft, non-tender. Bowel sounds normal. No masses, organomegaly Extremities: No deformities, edema, skin discoloration, clubbing or cyanosis. Good capillary refill. No calf tenderness. No redness Musculoskeletal: No joint swelling, deformity, or tenderness Peripheral pulses: Normal Neuro: Negative. ASSESSMENT/PLAN: 1. Muscle spasm of both lower legs - ICD9: 728.85, ICD10: M62.838 (primary diagnosis) - drink adequate fluids. Follow with neuro. Check labs. Call if symptoms worsen at all or if not better in one to two weeks - Red flags for re-assessment reviewed with patient in detail. - TSH BLD - CBC + DIFF - BASIC METABOLIC PNL - MAGNESIUM BLD - CK CREATINE KINASE 2. Essential tremor - ICD9: 333.1, ICD10: G25.0 - TSH BLD - CBC + DIFF - BASIC METABOLIC PNL - MAGNESIUM BLD - CK CREATINE KINASE 3. Essential hypertension, benign - ICD9: 401.1, ICD10: I10 - fair control, ok for patient's age - Goal of BP <140/90 - TSH BLD - CBC + DIFF - BASIC METABOLIC PNL - MAGNESIUM BLD - CK CREATINE KINASE 4. Anemia of chronic renal failure, stage 2 (mild) - ICD9: 285.21, 585.2, ICD10: N18.2, D63.1 - check labs. - TSH BLD - CBC + DIFF - BASIC METABOLIC PNL - MAGNESIUM BLD - CK CREATINE KINASE 5. Stage 3 chronic kidney disease, unspecified whether stage 3a or 3b CKD (HCC) - ICD9: 585.3, ICD10: N18.30 - TSH BLD - CBC + DIFF - BASIC METABOLIC PNL - MAGNESIUM BLD - CK CREATINE KINASE 6. Other psoriasis - ICD9: 696.1, ICD10: L40.8 - TSH BLD - CBC + DIFF - BASIC METABOLIC PNL - MAGNESIUM BLD - CK CREATINE KINASE 7. Prediabetes - ICD9: 790.29, ICD10: R73.03 - HGB A1C Jeffy Fields MD documented in this encounter[facility]11-29-2022 Miscellaneous Notes* Telephone Encounter - Jeffy Fields MD - 07/22/2022 12:30 PM EST Would need appt with one of us * Telephone Encounter - Jeffy Fields MD - 07/21/2022 8:59 AM EST Can we see what she means by this note. If she is referring to her restless legs, she is seeing Dr. Clark for this already documented in this encounterUpper [facility]11-16-2022 Miscellaneous Notes* Telephone Encounter - Almita Moe - 07/09/2022 8:27 AM EST Patient has been identified by name and date of : Yes Patient phones for refill(s): Requested Prescriptions Pending Prescriptions Disp Refills levothyroxine (SYNTHROID) 50 mcg tablet 72 tablet 1 Sig: Take 1 tablet by mouth once daily 6 out of 7 days per week. omeprazole (PRILOSEC) 20 mg capsule 90 capsule 3 Sig: Take one tablet by mouth q day simvastatin (ZOCOR) 40 mg tablet 90 tablet 3 Sig: Take 1 tablet by mouth daily at bedtime. Date of last office visit in primary care: 05/12/22 Last 2 Encounter Wt Readings: Date: Wt: 06/30/2022 45.8 kg (101 lb) 05/12/2022 46.4 kg (102 lb 6.4 oz) Previous labs/tests for medication: Not applicable Please advise. Thank you. Almita Moe documented in this encounterUpper [facility]11-07-2022 Instructions* Patient Instructions* Jeffy Clark Jr., MD - 06/30/2022 1:43 PM EST Please provide us an update on your condition in 1-2 weeks. Thank you, Jeffy Clark MD documented in this encounterUpper [facility]11-07-2022 History of Present illness Narrative* Jeffy Clark Jr., MD - 06/30/2022 1:03 PM EST ESTABLISHED PATIENT VISIT CHIEF COMPLAINT: Follow Up HISTORY OF PRESENT ILLNESS: Chinyere Alberts is a 87 year old female, There were no vitals taken for this visit. with a PMH significant for and per last neuro visit with Indira Sal CNP on 02/06/22: G25.81 Restless legs syndrome (primary encounter diagnosis) Comment: Patient reports symptoms have remained well controlled with exception of two or three consecutive nights of breakthrough symptoms which have since resolved. Since time of previous appointment she has further reduced dose of both Lyrica and Klonopin and is currently taking medication as noted below: Lyrica 25mg- taking one capsule QHS. Ropinirole 0.5mg- taking one tablet at noon and 4PM, 1 1/2 tablets at 8PM and 1/2 tablet at midnight. Klonopin 0.5mg- taking 1/2 tablet at midnight. She reports improvement in balance with adjustment in medications and no SE with medications. She feels that current medication regimen is working well and therefore will continue with above times and doses. No RF needed at today's appointment. 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 Continue medications as above . R25.1 Tremor Comment: Tremor remains stable. Not present at rest. No tremor noted on exam. No other neurologicalfindings on exam that would indicate PD. Will continue to monitor for any changes. Patient s/p RTKR in February of this year. She reports since that time, the jerking has been awful. States jerking resolved the last 4 days but up until then was awful. More common in the afternoon andevening than in the morning. Would jerk and then be fine. Note this was consistent with prior complaints and jerk sensation resolving with activity. Unclear what occurred over last 4 days to stop jerking. Meds: Lyrica 25mg- taking one capsule noon and one QHS. Ropinirole 0.5mg- taking one tablet at noon and 4PM, 1 1/2 tablets at 8PM and 1/2 tablet at midnight. Klonopin 0.5mg- taking 1/2 tablet at midnight. Pt reports tremors worse, shaking more, with more difficulties eating, doing hair, flipping a pancake. Tremors are pretty much all day long. Reports no witnessed acting out of dreams and no abnormal behaviors in sleep that pt is aware of. REVIEW OF SYSTEMS GENERAL:No weight loss, malaise or fevers. HEENT:Negative for frequent or significant headaches, No changes in hearing or vision, no nose bleeds or other nasal problems RESPIRATORY: Negative for cough, wheezing or shortness of breath. CARDIOVASCULAR: Negative for chest pain, leg swelling or palpitations. GASTROINTESTINAL: Negative for abdominal discomfort, blood in stools or black stools or change in bowel habits GENITOURINARY: No history of dysuria, frequency or incontinence MUSCULOSKELETAL: See HPI. NEUROLOGIC:See HPI. LAB/IMAGING: Those performed since patient's last visit have been reviewed. WBC (k/uL) Date Value 05/26/2022 4.19 RBC (m/uL) Date Value 05/26/2022 4.29 Hemoglobin (g/dL) Date Value 05/26/2022 13.1 Hematocrit (%) Date Value 05/26/2022 39.7 MCV (fL) Date Value 05/26/2022 92.5 MCH (pg) Date Value 05/26/2022 30.5 MCHC (g/dL) Date Value 05/26/2022 33.0 RDW-CV (%) Date Value 05/26/2022 11.5 Platelet Count (k/uL) Date Value 05/26/2022 201 MPV (fL) Date Value 05/26/2022 9.6 Glucose (mg/dL) Date Value 05/26/2022 107 (H) BUN (mg/dL) Date Value 05/26/2022 21 Creatinine (mg/dL) Date Value 05/26/2022 1.14 (H) Sodium (mmol/L) Date Value 05/26/2022 137 Potassium (mmol/L) Date Value 05/26/2022 4.0 Chloride (mmol/L) Date Value 05/26/2022 101 CO2 (mmol/L) Date Value 05/26/2022 26 Protein, Total (g/dL) Date Value 05/05/2022 6.6 Albumin (g/dL) Date Value 05/05/2022 4.3 Calcium, Total (mg/dL) Date Value 05/26/2022 10.0 Alkaline Phosphatase (U/L) Date Value 05/05/2022 64 Bilirubin, Total (mg/dL) Date Value 05/05/2022 0.4 AST (U/L) Date Value 05/05/2022 15 ALT (U/L) Date Value 05/05/2022 10 Hep C Antibody IA (no units) Date Value 05/01/2011 Negative MEDICATIONS: clonazePAM (KLONOPIN) 0.5 mg tablet TAKE 1/2 TO 1 TABLET AT MIDNIGHT pregabalin (LYRICA) 25 mg capsule Take 1 capsule by mouth twice daily for 90 days. losartan (COZAAR) 50 mg tablet Take 1 tablet by mouth once daily. levothyroxine (SYNTHROID) 50 mcg tablet Take 1 tablet by mouth once daily 6 out of 7 days per week. Cholecalciferol, Vitamin D3, 25 mcg (1,000 unit) cap Take 1,000 Units by mouth once daily. rOPINIRole (REQUIP) 0.5 mg tablet TAKE 1 TAB AT LUNCH, 1 AT DINNER, 1 AT BEDTIME, 1/2 AT MIDNIGHT NEEDED (Patient taking differently: TAKE 1 TAB AT LUNCH, 1 AT DINNER, 1 1/2 AT BEDTIME) simvastatin (ZOCOR) 40 mg tablet Take 1 tablet by mouth daily at bedtime. omeprazole (PRILOSEC) 20 mg capsule Take one tablet by mouth q day calcium carbonate/vitamin D3 (CALCIUM WITH VITAMIN D ORAL) Take 1 tablet by mouth once daily. IPRATROPIUM BROMIDE NASAL Use 1 Leburn in the nose twice daily. hypromellose(GENTEAL MODERATE 0.3 % EYE DROPS) To left eye ASPIRIN 81 MG TAB Take one (1) tablet daily . HISTORIES PAST MEDICAL HISTORY Diagnosis Date Anemia of chronic renal failure, stage 2 (mild) 05/19/2006 Arthritis left foot and right thumb Esophageal reflux Essential hypertension, benign Essential tremor GERD (gastroesophageal reflux disease) Hiatal hernia 08/25/2018 Other and unspecified hyperlipidemia Senile osteoporosis Unspecified hypothyroidism FAMILY HISTORY Problem Relation Age of Onset Heart Mother massive HI, in her 70's other (Other) Father unknown Alzheimer's Disease Sister Cancer Maternal Grandmother GI CANCER Heart Maternal Aunt Diabetes Maternal Aunt Heart Maternal Uncle SOCIAL HISTORY Social History Tobacco Use Smoking status: Never Smokeless tobacco: Never Vaping Use Vaping Use: Never used Substance Use Topics Alcohol use: No Drug use: No PHYSICAL EXAMINATION Blood pressure 131/62, pulse 72, temperature 36.3 C (97.4 F), resp. rate 18, weight 45.8 kg (101 lb), SpO2 98 %. GENERAL EXAM: General appearance: NAD, pleasant. HEENT: NC/AT, nasal congestion absent, no oral lesions, membranes moist. NECK: ROM Lungs: CTA bilaterally. CV: RRR nl S1, S2, no murmurs. No carotid bruits. Abd: Soft, nontender, nondistended. Bowel sounds present. Extr: No cyanosis, clubbing or edema. No evidence of fasciculations. Extremity pulses palpable and normal. Skin: Cool to touch. No rash. NEUROLOGICAL EXAM: General: Awake, alert, oriented x3 (person,place,time), speech fluent, no dysarthria; comprehension, naming, repetition intact. CN: PERRL, EOMI and without nystagmus, VFF to confrontation, facial sensation and strength are normal and symmetric, hearing is intact to finger rub bilaterally, palate and tongue movements are intact and symmetric. SCM and trapezius strength normal. Motor: Normal tone, bulk and strength (5/5) bilaterally (throughout extremities x4). Reflexes: 1/4 and symmetric, plantar stimulation is flexor. Coordination: FNF, FLORENCIO, HTS intact. Doc tremor (R>L) upper ext with posture and activity. Sensation: LT, vibration, temperature intact throughout. No evidence of neglect. Gait: Stable with normal stride and arm swing. Assessment and Plan: ASSESSMENT/PLAN: 1. Tremor - ICD9: 781.0, ICD10: R25.1 (primary diagnosis) Worse since last seen. Patient not wanting to add new med. Will try to control with Lyrica by increasing from 25 to 50mg BID. 2. RLS (restless legs syndrome) - ICD9: 333.94, ICD10: G25.81 Stable, although suspect leg jerking described over last 3 months was associated with RLS exacerbation (? related to meds (received correct dose) given with new refill symptoms resolved) or due to surgery with nerve involvement and need for rest. As now controlled will keep Requip as Rx'd above. However, increasing Lyrica as above. Pt would like to stop Klonopin although no side effects at present. 3. 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 While on Klonopin, only 0.25mg QHS. She would like to stop Klonopin. Discussed risks vs benefits. She will discontinue and provide us update in 1-2 weeks. However if dream enactment recurs then will restart Klonopin at 0.25mg QHS. Jeffy Clark MD I spent a total of 35 minutes on the date of the service which included preparing to see the patient, [id number] patient care, completing clinical documentation, obtaining and/or reviewing separately obtained history, performing a medically appropriate examination, counseling and educating the pat ient/family/caregiver, and ordering medications, tests, or procedures. PDMP website checked and validated. All prescriptions have been APPROPRIATELY filled. No suspiciousactivity was identified. 06/30/2022 by Jeffy Clark MD documented in this encounterUpper [facility] Center10-28-2022 History of Present illness Narrative* Rufus Monroy PT - 06/20/2022 10:17 AM EDT Episode Visit Count: 4 Therapist That Will Accept/Oversee The Plan Of Care: Rufus Monroy PT Start of Care Date: 05/23/22 Onset Date: 03/18/22 Plan of Care Certification Date: 05/23/22 Next Certification Due Date: 06/27/22 Patient Identified by Name and Date of : Yes [facility] PHYSICAL THERAPY DISCONTINUANCE OF CARE PLAN OF CARE UPDATE: Assessment: Chinyere Alberts is discontinued from Physical Therapy services due to goal achievement. and Patient/Clinician mutual decision to discontinue current plan of care.. Patient was seenfor 4 visits from Start of Care Date: 05/23/22 to 06/20/2022 and treatment included: Therapeutic exercise, Self-fpc management, Patient/Family/Caregiver Education, and Body mechanics training. Updated: 06/20/22 Goals for Episode of Care: created on 05/23/22 through 06/27/22 Independent in home exercises. - MET Patient will decrease pain to 0/10 at rest and with functional activities to allow patient to improve sitting tolerance. - MET Restore pain-free thoracic ROM to WFL to allow for improved transfers - MET Sit without limitations, without pain/symptoms to allow for increased sitting tolerance in the evenings - MET Maintain proper sitting posture throughout session - MET Patient will increase strength of postural muscles to WFL to allow for increased sitting tolerance. - MET Patient Goals: decrease and eliminate pain - MET SUBJECTIVE: Patient Reason for Visit: Pt reports compliance with HEP 2x day and that overall she isgreatly improved. She reports being pleasantly surprised by the improvements. She denies any significant pain and rates her overall recovery at 95% of her prior functional level. She reports improvedsitting tolerance and no current limitations. She also denies any limitations with transfers. She re ports that the pain is less intense and less frequent. She is very pleased with the outcome of PT overall. She reports a dramatic improvementover the last week. She reports that she has not been using the heating pad because she has not needed it.. Pain: Pain Pain Level: 0 Description: (No pain currently) Frequency: Intermittent Post Treatment Pain Post Treatment Pain Level: No Change PROMIS Scales Higher is Better 05/05/2022 05/22/2022 06/17/2022 Phys Func - Score - 50 (within normal limits) 49 (within normal limits) Phys Func - Percentile - 50 % 46 % GH Physical - Score 39.8 (Fair) Incomplete - GH Physical - Percentile 15 % - - GH Mental - Score 45.8 (Good) Incomplete - GH Mental - Percentile 34 % - - Self-Eff Symptom - Score - 41 (Average) 58 (Average) Self-Eff Symptom - Percentile - 18 % 79 % T-scores: mean of general population = 50. 5 points is clinically meaningfully difference Percentiles provide an indication of how the patient's score ranks in relation to the general population. Higher percentile rankings indicate better function/quality of life. 50th percentile is the average of the general population and indicates half of respondents had a worse score. T-scores: mean of general population = 50. 5 points is clinically meaningfully difference Percentiles provide an indication of how the patient's score ranks in relation to the general population. Higher percentile rankings indicate better function/quality of life. 50th percentile is the average of the general population and indicates half of respondents had a worse score. OBJECTIVE MEASURES WITH LEVEL OF FUNCTION: Posture / Alignment Posture: Comments Posture comment: Pt reports increased postural awareness and that she is working on postural correction. Spine Observations L Thoracic Spine Palpation Tenderness: Comments L Thoracic Spine Palpation Comments: No tenderness present today Thoracic Spine AROM Thoracic Flexion: Normal Thoracic Extension: Normal Thoracic Sidebend Right: Normal Thoracic Sidebend Left: Normal Thoracic Rotation Right: Normal Thoracic Rotation Left: Normal LE Strength Trunk Strength: Increasing strength and therefore increased sitting tolerance. TREATMENT: Therapeutic Exercise: 1: Scifit StepOne seat #10 x6 minutes (Pt provided an update on her condition and subjective portion of goals assessed) 2: L rhomboid stretch with grasping door knob and rotating away reviewed for HEP and continuation encouraged 3: R sidebending stretch reaching over head with L UE to stretch L sided trunk muscles reviewed forHEP and continuation encouraged 4: Seated thoracic rotation with arms across chest reviewd for HEP and continuation encouraged to tolerance 5: seated thoracic extension in chair reviewed for HEP and continuation encouraged to tolerance 6: Re-assessment results reviewed with patient this information was used as rationale for d/c recommendations. Pictures used to clarify education on anatomy, especially muscles involved in symptoms, latisimus and rhomboids. HEP reviewed and continuation encouraged to tolerance. Pt was educated on how to reach therapist if any future problems or questions arise. Skilled Intervention: Patient was educated in proper exercise technique and purpose for exercises. Skilled judgment was provided in selection of appropriate interventions. Correct performance of therapeutic exercises was facilitated with verbal and visual cuing. Patient education as noted. Billing Therapeutic Exercise Treatment Minutes: 25 Total Treatment Time Minutes (timed/untimed): 25 Rufus Monroy PT [facility] History of Present illness Narrative* Rufus Monroy PT - 06/06/2022 4:16 PM EDT Episode Visit Count: 3 Therapist That Will Accept/Oversee The Plan Of Care: Rufus Monroy PT Start of Care Date: 05/23/22 Onset Date: 03/18/22 Plan of Care Certification Date: 05/23/22 Next Certification Due Date: 06/27/22 Patient Identified by Name and Date of : Yes REHABILITATION AND SPORTS THERAPY PHYSICAL THERAPY TREATMENT NOTE ASSESSMENT: Chinyere Alberts tolerated the session with fatigue, expected muscle soreness, and no issues. She demonstrated improvements in exercise tolerance and HEP produced intended effects after correction. The patient will continue to benefit from ongoing skilled physical therapy to progress toward set goals and for reassessment by supervising therapist. PLAN FOR NEXT VISIT: Continue with postural correction and postural stretching and strengthening. Pt prefers to focus onHEP and return for a follow up in 2 weeks. She will call sooner prn SUBJECTIVE: Patient Reason for Visit: Pt reports that overall she is feeling better and having lesspain. She states, It just doesn't hurt as much. She reports partial compliance with HEP 2-3x day.She has only been consistently completing those exercises that she feels will benefit her and are effective. She reports that her sitting tolerance in the evening is improved. She reports a definite increase in postural awareness and that she is working on it. Pain: Pain Pain Level: 2 Pain Location: Thoracic Spine - Left Description: (very mild) Frequency: Intermittent Post Treatment Pain Post Treatment Pain Level: No Change OBJECTIVE MEASURES WITH LEVEL OF FUNCTION: Posture / Alignment Posture: Comments Posture comment: Improved Thoracic Spine AROM Thoracic Flexion: Normal Thoracic Extension: Normal Thoracic Sidebend Right: Normal;Increased pain Thoracic Sidebend Left: Normal Thoracic Rotation Right: Minimal limitation Thoracic Rotation Left: Minimal limitation TREATMENT: Therapeutic Exercise: 1: [employer] StepOne seat #10 x5 minutes (Pt provided an update on her condition and subjective collected.) 2: L rhomboid stretch with grasping door knob and rotating away 3x30 seconds (cues for correct technique) 3: R sidebending stretch reaching over head with L UE to stretch L sided trunk muscles 3x30 seconds(resumed after correction of her technique produced desired result) 4: Seated thoracic rotation with arms across chest 2x10B 5: seated thoracic extension in chair 2x10 6: All home exercises were extensively reviewed and corrected. After review and corrections, pt wasable to complete correctly and produce desired effect. The purpose of every exercise was explained to patient in detail secondary to her questions. Plan of care options were explained and recommendations made. Pt chose to work on HEP independently and return for follow up in 2 weeks. She will call sooner prn. Skilled Intervention: Patient was educated in proper exercise technique and purpose for exercises. Reviewed and educated patient on additions/changes for home exercise program as above (*). Skilled judgment was provided in selection of appropriate interventions. Correct performance of therapeutic exercises was facilitated with verbal, visual, and tactile cuing. Patient education as noted. Billing Therapeutic Exercise Treatment Minutes: 38 Total Treatment Time Minutes (timed/untimed): 38 Rufus Monroy PT [facility] History of Present illness Narrative* Zane Villareal PT - 05/30/2022 9:30 AM EDT Episode Visit Count: 2 Therapist That Will Accept/Oversee The Plan Of Care: Rufus Monroy PT Start of Care Date: 05/23/22 Onset Date: 03/18/22 Plan of Care Certification Date: 05/23/22 Next Certification Due Date: 06/27/22 Patient Identified by Name and Date of : Yes REHABILITATION AND SPORTS THERAPY PHYSICAL THERAPY TREATMENT NOTE ASSESSMENT: Chinyere Alberts tolerated the session with fatigue and expected muscle soreness.She demonstrated improvements in thoracic rotation. The patient will continue to benefit from ongoing skilled physical therapy to progress toward set goals. PLAN FOR NEXT VISIT: Continue with stretching and strengthening of postural muscles. Possibly try standing thoracic rotation with lift offs from wall. SUBJECTIVE: Patient Reason for Visit: Pt reports her pain is still there. Pt reports HEP doesn't seem to be makin a difference yet. Pain: Pain Pain Level: 3 (pain gets worse as pt gets tired.) Pain Location: Thoracic Spine - Left Description: (nagging, irritating, aggrevating) Frequency: Intermittent Post Treatment Pain Post Treatment Pain Level: No Change Post Treatment Pain Location: Thoracic Spine - Left Post Treatment Symptoms: Pt denied increase in pain, but felt muscle soreness OBJECTIVE MEASURES WITH LEVEL OF FUNCTION: Increased thoracic rotation noted with increased reps of movement. TREATMENT: Therapeutic Exercise: 1: *Seated thoracic extension over chair 2x10 2: L rhomboid stretch with grasping door knob and rotating away 3x30 seconds (verbal cand tactile cueing for standing up straight) 3: R sidebending stretch reaching over head with L UE to stretch L sided trunk muscles 3x30 seconds(discontinued as part of HEP as pt did't feel a stretch with this movement) 4: *Seated thoracic rotation with arms across chest 2x10B 5: Supine protaction and retraction 2x10 6: Scapular retractions 2x10 Skilled Intervention: Patient was educated in proper exercise technique and purpose for exercises. Reviewed and educated patient on additions/changes for home exercise program as above (*). Skilled judgment was provided in selection of appropriate interventions. Correct performance of therapeutic exercises was facilitated with verbal and visual cuing. Billing Therapeutic Exercise Treatment Minutes: 39 Total Treatment Time Minutes (timed/untimed): 39 Rosa Bird, KASANDRA Villareal PT [facility] History of Present illness Narrative* Rufus Monroy PT - 05/23/2022 3:01 PM EDT Episode Visit Count: 1 Therapist That Will Accept/Oversee The Plan Of Care: Rufus Monroy PT Start of Care Date: 05/23/22 Onset Date: 03/18/22 Plan of Care Certification Date: 05/23/22 Next Certification Due Date: 06/27/22 Patient Identified by Name and Date of : Yes REHABILITATION AND SPORTS THERAPY PHYSICAL THERAPY EVALUATION PLAN OF CARE: Assessment: Chinyere Alberts presents with chief complaint of L sided thoracic pain that interferes with sitting (prolonged sitting,) . She presents with impairments in ADL's, flexibility, independence in exercise, overall function, posture, range of motion, strength , symptom management, andtissue tenderness. PROMIS (Patient-Reported Outcomes Measurement Information System) scores were reviewed and physical function domain and self efficacy domain identified as within normal limits. Prognosis for therapy is Excellent due to: current objective clinical presentation;good overall health status;good support system/ coping skills;within-session changes. She will benefit from skilled therapy services to meet the goals established for this plan of care as noted below. Classification Low Back Pain Subgroup Classification: Core stabilization subgroup: recommended visits 10. Core Stabilization Subgroup Classification based on: pain with transitional movements (pain with prolonged positions) Goals for Episode of Care: created on 05/23/22 through 06/27/22 Independent in home exercises. Patient will decrease pain to 0/10 at rest and with functional activities to allow patient to improve sitting tolerance. Restore pain-free thoracic ROM to WFL to allow for improved transfers Sit without limitations, without pain/symptoms to allow for increased sitting tolerance in the evenings Maintain proper sitting posture throughout session Patient will increase strength of postural muscles to WFL to allow for increased sitting tolerance. Patient Goals: decrease and eliminate pain Planned Interventions, Frequency, and Duration: Current Frequency: 2x/week Duration: 5 weeks Total Number of Visits Planned: 10 Planned Treatment Interventions: Therapeutic exercise (96686);Self-fpc management (74951) PLAN FOR NEXT VISIT: Review, correct and progress HEP to tolerance prn. Continue with postural correction training and consultation regarding body mechanics. Continue with therex for postural stretching and strengthening. At this time, involved muscle groups include L rhomboid and L lats. Pt acknowledges the need for increased postural strength. Patient demonstrates good understanding of plan of care and treatment. The above goals and plan of care were discussed and agreed upon by patient/family. SUBJECTIVE: Chinyere Alberts is a 87 year old female seen today for intermittent pain in leftside of thoracic spine region. She reports that this pain increases late in the day when she is fatigued. She feels that too much weight on leg press in PT for R TKA on 03/18/22 was the cause of thoracic spine pain. 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 Cancer Clinical Reasoning: No identified risk factors. Infection Clinical Reasoning: No identified risk factors. Cauda Equina Syndrome Clinical Reasoning: No identified risk factors. Red Flags - Cervical Cancer Clinical Reasoning: No identified risk factors. Infection Clinical Reasoning: No identified risk factors. Spine History Symptoms Location at Onset: Back (L thoracic region) Symptoms Since Onset: Improving (less frequent) Pain is Worse Always: Sitting;Prolonged positions Pain is Better Sometimes: On the Move (changing positions) Previous Episodes: No Sleeping Position: Side lying right;Side lying left Sleep Affected by Pain: Not affected by pain Pain: Pain Pain Level: (3/10 currently in L mid back, 10/10 at worst, 0/10 at best) Pain Location: Thoracic Spine - Left Description: Dull (dull constant nagging) Frequency: Intermittent;Sitting Post Treatment Pain Post Treatment Pain Level: Worse Post Treatment Pain Location: Thoracic Spine - Left Post Treatment Pain Description: (a little bit more after session) Post Treatment Symptoms: Pt denied any increase in pain during session today but after session she reported that her pain in L thoracic spine region was a little bit more. PROMIS Scales Higher is Better 01/22/2022 05/05/2022 05/22/2022 Phys Func - Score - - 50 (within normal limits) Phys Func - Percentile - - 50 % GH Physical - Score 47.7 (Good) 39.8 (Fair) Incomplete GH Physical - Percentile 41 % 15 % - GH Mental - Score 45.8 (Good) 45.8 (Good) Incomplete GH Mental - Percentile 34 % 34 % - Self-Eff Symptom - Score - - 41 (Average) Self-Eff Symptom - Percentile - - 18 % T-scores: mean of general population = 50. 5 points is clinically meaningfully difference Percentiles provide an indication of how the patient's score ranks in relation to the general population. Higher percentile rankings indicate better function/quality of life. 50th percentile is the average of the general population and indicates half of respondents had a worse score. T-scores: mean of general population = 50. 5 points is clinically meaningfully difference Percentiles provide an indication of how the patient's score ranks in relation to the general population. Higher percentile rankings indicate better function/quality of life. 50th percentile is the average of the general population and indicates half of respondents had a worse score. OBJECTIVE MEASURES WITH LEVEL OF FUNCTION: Posture / Alignment Posture: Forward head;Increased thoracic kyphosis;Rounded shoulders;Decreased lumbar lordosis;Slump Sitting Posture: Slump;Poor Effects of Posture Correction: it helps Spine Observations L Thoracic Spine Palpation Tenderness: Inferior angle- Scapula;Rhomboid;Comments L Thoracic Spine Palpation Comments: no tenderness directly on spine Thoracic Spine AROM Thoracic Flexion: Normal;Increased pain Thoracic Extension: Moderate limitation Thoracic Sidebend Right: Normal;Increased pain Thoracic Sidebend Left: Normal Thoracic Rotation Right: Minimal limitation Thoracic Rotation Left: Moderate limitataion LE Strength Trunk Strength: Pt's reported functional difficulties and postural deficits indicate that she will benefit from increased postural strength. Gait Gait Observation: Pt arrived carrying her cane with a safe and appropriate gait pattern. Education: Education Learning Preferences: Demonstration;Explanation;Performance;Printed Materials Barriers: None Learning/educational needs: Home exercise program;Plan of Care;Posture;Body Mechanics;Lifestyle changes Education Provided: Yes, see treatment interventions for education provided Education Provided To: Patient Education Mode/Type: Demonstration;Explanation/Discussion;Literature/Printed Materials;Performance Response to Education/Teach Back: States/Identifies;Return Demonstration;Requires Review/AdditionalEducation TREATMENT: PT Treatment Interventions: Therapeutic Exercise;Self-Assisted Management Evaluation Therapeutic Exercise: 1: Pt was educated on the proper intensity with all therex and the importance of stopping any exercise that causes increased pain was stressed. The rationale for all therex explained. 2: *L rhomboid stretch with grasping door knob and rotating away 3x30 seconds 3: *R sidebending stretch reaching over head with L UE to stretch L sided trunk muscles 3x30 seconds Skilled Intervention: Patient was educated in proper exercise technique and purpose for exercises. Reviewed and educated patient on additions/changes for home exercise program as above (*). Skilled judgment was provided in selection of appropriate interventions. Provided written instruction for home exercise program to facilitate proper performance and compliance. Correct performance of therapeutic exercises was facilitated with verbal, visual, and tactile cuing. Patient education as noted. Self-Assisted Management: 1: Pt was educated on the anatomy of symptomatic area, likely source of symptoms and rationale for proposed treatment plan. Postural correction and its importance emphasized. Handout was provided on postural correction. Her sitting posture and body mechanics at home were discussed and recommendations made. The proper use of superficial thermal modalities reviewed and recommendations made. Pt was educated on how her mechanism of injury may have contributed to her symptoms. Skilled Intervention: Skilled judgment in the selection of proper modification for activity of daily living/home management based on clinical presentation, deficits, and needs. Educated the patient regarding recommendations and provided written instruction to facilitate compliance. Reviewed patient specific diagnosis in relation to activities of daily living/home management. Billing * Evaluation Low Complexity: 1 Unit Therapeutic Exercise Treatment Minutes: 15 Self-Care/Home Management Treatment Minutes: 10 Total Treatment Time Minutes (timed/untimed): 45 Rufus Monroy PT [facility] History of Present illness Narrative* Kera Oshea RT(R) - 05/12/2022 11:00 AM EDT Radiology Service Progress Note PATIENT NAME: Chinyere Alberts DATE OF SERVICE: May 12, 2022 TIME: 11:24 AM PATIENT IDENTITY VERIFICATION COMPLETED USING TWO (2) IDENTIFIERS: Name and Date of confirmedby patient verbally. FALL SCREENING: Has the patient had 2 falls in the last year or 1 fall with injury or currently using an Ambulatory Assistive Device (Walker, Cane, Wheelchair, Crutches, etc.)? Yes, Patient High Riskfor Falls What interventions were put in place to prevent falls during this visit? Increased Observations by Caregivers PATIENT GENDER DATA: Female. status: : No status: NO. PATIENT RELEVANT IMPLANT DATA REVIEWED: Yes RADIOLOGY DEPARTMENT: General X-ray: Exam(s) Completed: Rib X-Ray: Left PERIPHERAL IV DATA: Not applicable SIGNED BY: RT Per(R) May 12, 2022 11:24 AM documented in this encounter[facility]22 History of Present illness Narrative* Jeffy Fields MD - 05/12/2022 10:03 AM EDT Patient presents with: 6 Month Exam HPI: Patient presents today for office visit for 6 month follow up. Doing physical therapy. Leg press machine causing left knee and back pain. So severe went to urgentcare. UA showed blood in urine on 03/27/22. abx given. Cx NEG. Continued abx til finished. Still has complaints of flank pain. Pain started after being on the leg press machine. Has not had any urinary issues. No change with deep breathing. Worse with movement. Looking at her last urine she did not have any rbc's. Spot on left cheek. Doesn't itch. Has been there for several month. No bleeding. Started as a red spot but is a little [place]. RLS is really bad. Not controlled. Sent message to Dr. Clark with no response. Will let him know they are getting worse. 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 Had bone marrow and work up which was ok. Sees neuro/nephro See Gloria's recent note: Refers that she was having back pain that started on 03/18. Refers that it just got so bad that she just couldn't stand it. Refers that she was concerned about a possible kidney problem, so she went to urgent care. Had pain across the lower back. Admits that it may have been from her PT machine. She had a knee replacement last month. Urine in the urgent care showed a moderate amount of blood. She reports that she is scheduled to get blood work done to day for Dr. Harper. She has an appointment with Dr. Harper next week.. She took tylenol for the back pain. She has been having some calf tenderness in the right leg. She hasn't noticed any redness. She has swelling d/t recent surgery. No increased warmth. Component Latest Ref Rng & Units 05/05/2022 WBC 3.70 - 11.00 k/uL 2.98 (L) RBC 3.90 - 5.20 m/uL 4.40 Hemoglobin 11.5 - 15.5 g/dL 13.6 Hematocrit 36.0 - 46.0 % 41.0 MCV 80.0 - 100.0 fL 93.2 MCH 26.0 - 34.0 pg 30.9 MCHC 30.5 - 36.0 g/dL 33.2 RDW-CV 11.5 - 15.0 % 11.6 Platelet Count 150 - 400 k/uL 131 (L) MPV 9.0 - 12.7 fL 11.7 Neut% % 59.5 Abs Neut (ANC) 1.45 - 7.50 k/uL 1.77 Lymph% % 22.8 Abs Lymph 1.00 - 4.00 k/uL 0.68 (L) O'Brien% % 8.4 Abs O'Brien <0.87 k/uL 0.25 Eosin% % 7.0 Abs Eosin <0.46 k/uL 0.21 Baso% % 2.3 Abs Baso <0.11 k/uL 0.07 Immature Gran % % 0.0 IMMATURE GRANS (ABS) <0.10 k/uL <0.03 NRBC /100 WBC 0.0 Absolute nRBC <0.01 k/uL <0.01 DTYPE Auto Protein, Total 6.3 - 8.0 g/dL 6.6 Albumin 3.9 - 4.9 g/dL 4.3 Calcium 8.5 - 10.2 mg/dL 9.8 Bilirubin, Total 0.2 - 1.3 mg/dL 0.4 Alkaline Phosphatase 34 - 123 U/L 64 AST 13 - 35 U/L 15 ALT 7 - 38 U/L 10 Glucose 74 - 99 mg/dL 94 BUN 7 - 21 mg/dL 18 Creatinine 0.58 - 0.96 mg/dL 1.00 (H) Sodium 136 - 144 mmol/L 138 Potassium 3.7 - 5.1 mmol/L 4.0 Chloride 97 - 105 mmol/L 102 CO2 22 - 30 mmol/L 23 Anion Gap 9 - 18 mmol/L 13 eGFR >=60 mL/min/1.73m 55 (L) Cholesterol, Total <200 mg/dL 169 Triglyceride <150 mg/dL 69 HDL Cholesterol >39 mg/dL 74 Non HDL Cholesterol <130 mg/dL 95 Fasting Time hrs 12 VLDL Cholesterol <30 mg/dL 14 TC:HDL Ratio <5.10 2.28 LDL Cholesterol <100 mg/dL 81 LDL:HDL Ratio <2.54 1.09 TSH 0.270 - 4.200 mIU/L 0.829 MEDICATIONS: Current Outpatient Medications Medication Sig pregabalin (LYRICA) 25 mg capsule Take 1 capsule by mouth twice daily for 90 days. losartan (COZAAR) 50 mg tablet Take 1 tablet by mouth once daily. levothyroxine (SYNTHROID) 50 mcg tablet Take 1 tablet by mouth once daily 6 out of 7 days per week. Cholecalciferol, Vitamin D3, 25 mcg (1,000 unit) cap Take 1,000 Units by mouth once daily. rOPINIRole (REQUIP) 0.5 mg tablet TAKE 1 TAB AT LUNCH, 1 AT DINNER, 1 AT BEDTIME, 1/2 AT MIDNIGHT NEEDED (Patient taking differently: TAKE 1 TAB AT LUNCH, 1 AT DINNER, 1 1/2 AT BEDTIME) clonazePAM (KLONOPIN) 0.5 mg tablet TAKE 1/2 TO 1 TABLET AT MIDNIGHT simvastatin (ZOCOR) 40 mg tablet Take 1 tablet by mouth daily at bedtime. omeprazole (PRILOSEC) 20 mg capsule Take one tablet by mouth q day calcium carbonate/vitamin D3 (CALCIUM WITH VITAMIN D ORAL) Take 1 tablet by mouth once daily. IPRATROPIUM BROMIDE NASAL Use 1 Leburn in the nose twice daily. hypromellose(GENTEAL MODERATE 0.3 % EYE DROPS) To left eye ASPIRIN 81 MG TAB Take one (1) tablet daily . No current facility-administered medications for this visit. ALLERGIES: ALLERGIES Allergen Reactions Genteal Eye Ointmen* Itching Itching,redness, and watery eyes Asa [Salicylates] ringing in ears Cymbalta [Duloxetin* Other: See Comments Caused nightmares Flonase [Fluticason* Other: See Comments gets jittery Lodine [Etodolac] stomach ache Sulfa (Sulfonamide * Hives PAST MEDICAL HISTORY Diagnosis Date Anemia of chronic renal failure, stage 2 (mild) 05/19/2006 Arthritis left foot and right thumb Esophageal reflux Essential hypertension, benign Essential tremor GERD (gastroesophageal reflux disease) Hiatal hernia 08/25/2018 Other and unspecified hyperlipidemia Senile osteoporosis Unspecified hypothyroidism PAST SURGICAL HISTORY Procedure Laterality Date ADENOIDECTOMY PRIMARY <AGE 14 Adenoidectomy APPENDECTOMY open COLONOSCOPY 11/28/2016 [facility]- diverticulosis. ESOPHAGOGASTRODUODENOSCOPY TRANSORAL DIAGNOSTIC 08/25/2018 EGD NEUROPLASTY &/TRANSPOS MEDIAN NRV CARPAL TUNNE Carpal tunnel decomp- left PAST SURGICAL HISTORY OF salivary gland removed- chronic infection PAST SURGICAL HISTORY OF 06-03-12 right trigger finger releases 1-4 PAST SURGICAL HISTORY OF 06-23-14 left ring trigger finger release RHINP PRIM LAT&ALAR CRTLGS&/ELVTN NASAL TI Rhinoplasty RHYTIDECTOMY NECK W/PLATYSMAL TIGHTENING eye brow lift TONSILLECTOMY PRIMARY/SECONDARY <AGE 14 Tonsillectomy TOTAL ABDOMINAL HYSTERECT W/WO RMVL TUBE OVARY Hysterectomy, DHIRAJ FAMILY HISTORY Problem Relation Age of Onset Heart Mother massive HI, in her 70's other (Other) Father unknown Alzheimer's Disease Sister Cancer Maternal Grandmother GI CANCER Heart Maternal Aunt Diabetes Maternal Aunt Heart Maternal Uncle Social History Tobacco Use Smoking status: Never Smokeless tobacco: Never Vaping Use Vaping Use: Never used Substance Use Topics Alcohol use: No Drug use: No Reviewed current medications, allergies, past medical history, surgical history, family history andsocial history today. REVIEW OF SYSTEMS All other reviewed and negative other than HPI. HEALTH MAINTENANCE: Reviewed health maintenance issues today INFLUENZA(1) - wants to wait. VITALS: BP 140/50 Pulse 92 Ht 154.9 cm (5' 1) Wt 46.4 kg (102 lb 6.4 oz) SpO2 99% BMI 19.35 kg/m Last 4 Encounter Wt Readings: Date: Wt: 05/12/2022 46.4 kg (102 lb 6.4 oz) 04/10/2022 0 kg () 03/27/2022 0 kg () 02/06/2022 45.8 kg (100 lb 14.4 oz) PHYSICAL EXAMINATION: General appearance: Well appearing, alert, in no acute distress, well-hydrated, well nourished. Skin: has some rosacea in the area she indicates. Will try treatments she had for the same from derm. Head: Normocephalic, no masses, lesions, tenderness or abnormalities Neck: Supple, no adenopathy; thyroid symmetric, normal size, no bruits Back: tender to touch with even gentle pressure over left ribs Lungs: Lungs clear to auscultation. No wheezing, rhonchi, rales Heart: RRR without murmur, gallop, or rubs. No ectopy Abdomen: Normal abdominal exam, Abdomen soft, non-tender. Bowel sounds normal. No masses, organomegaly Extremities: No deformities, edema, skin discoloration, clubbing or cyanosis. Good capillary refill. Musculoskeletal: No joint swelling, deformity, or tenderness ASSESSMENT/PLAN: 1. Essential hypertension, benign - ICD9: 401.1, ICD10: I10 (primary diagnosis) - acceptable for age. 2. Essential tremor - ICD9: 333.1, ICD10: G25.0 - seems to be worse 3. Restless legs syndrome - ICD9: 333.94, ICD10: G25.81 - will let neuro/sleep med know 4. Anemia of chronic renal failure, stage 2 (mild) - ICD9: 285.21, 585.2, ICD10: N18.2, D63.1 - good 5. Stage 3 chronic kidney disease, unspecified whether stage 3a or 3b CKD (HCC) - ICD9: 585.3, ICD10: N18.30 - per nephro 6. Hypothyroidism, unspecified type - ICD9: 244.9, ICD10: E03.9 - Instructed patient on importance of taking on an empty stomach either first thing in the morning or at bedtime. 7. Prediabetes - ICD9: 790.29, ICD10: R73.03 - stable. 8. Leukopenia, unspecified type - ICD9: 288.50, ICD10: D72.819 - will recheck in two weeks. - CBC + DIFF - BASIC METABOLIC PNL 9. Mixed hyperlipidemia - ICD9: 272.2, ICD10: E78.2 - good control - Continue current medication. - CK CREATINE KINASE 10. Microscopic hematuria - ICD9: 599.72, ICD10: R31.29 - last urine showed NO blood under scope. Will recheck. - URINALYSIS, WITH MICROSCOPIC 11. Rosacea - ICD9: 695.3, ICD10: L71.9 - try cream at home. Call if worsens in the next month 12. Back pain. - xray and physical therapy Jeffy Fields MD RTO in three months and prn. documented in this encounter[facility]22 Miscellaneous Notes* Telephone Encounter - Sis Montague MA - 04/17/2022 12:09 PM EDT The following approved medication requests have been transmitted electronically. Requested Prescriptions Signed Prescriptions Disp Refills pregabalin (LYRICA) 25 mg capsule 60 capsule 2 Sig: Take 1 capsule by mouth twice daily for 90 days. Sis Montague MA documented in this encounterUpper [facility]08-24-2022 Miscellaneous Notes* Telephone Encounter - Heather Moncada Ma - 04/16/2022 6:35 PM EDT Pt informed, verbalized understanding Heather Moncada MA * Telephone Encounter - Mónica Garcia APRN.CNP - 04/16/2022 5:28 PM EDT Please let Chinyere know that her mammogram looks good, no concerns for cancer! Mónica Garcia APRN.CNP documented in this encounterUpper [facility] Center08-24-2022 History of Present illness Narrative* RT Jean(Reyes) - 04/16/2022 1:00 PM EDT Radiology Service Progress Note PATIENT NAME: Chinyere Alberts DATE OF SERVICE: April 16, 2022 TIME: 11:53 AM PATIENT IDENTITY VERIFICATION COMPLETED USING TWO (2) IDENTIFIERS: Name and Date of confirmedby patient verbally. FALL SCREENING: Has the patient had 2 falls in the last year or 1 fall with injury or currently using an Ambulatory Assistive Device (Walker, Cane, Wheelchair, Crutches, etc.)? Yes, Patient High Riskfor Falls What interventions were put in place to prevent falls during this visit? Offered Assistance with Transfers/Clothing, Instructed Patient to Remain Seated (Not on Exam Table) Until Exam, and Increased Observations by Caregivers PATIENT GENDER DATA: Female. status: : No status: NO. PATIENT RELEVANT IMPLANT DATA REVIEWED: Not Applicable RADIOLOGY DEPARTMENT: Ultrasound PERIPHERAL IV DATA: Not applicable SIGNED BY: RT Jean(R) April 16, 2022 11:53 AM documented in this encounterUpper [facility] Center08-24-2022 History of Present illness Narrative* Brooke Figueredo - 04/16/2022 11:30 AM EDT Radiology Service Progress Note PATIENT NAME: Chinyere Alberts DATE OF SERVICE: April 16, 2022 TIME: 11:48 AM PATIENT IDENTITY VERIFICATION COMPLETED USING TWO (2) IDENTIFIERS: Name and Date of confirmedby patient verbally. FALL SCREENING: Has the patient had 2 falls in the last year or 1 fall with injury or currently using an Ambulatory Assistive Device (Walker, Cane, Wheelchair, Crutches, etc.)? No PATIENT GENDER DATA: Female. status: : No status: NO. PATIENT RELEVANT IMPLANT DATA REVIEWED: Not Applicable RADIOLOGY DEPARTMENT: Mammography PERIPHERAL IV DATA: Not applicable SIGNED BY: Brooke Figueredo April 16, 2022 11:48 AM documented in this encounterUpper [facility] Center08-18-2022 History of Present illness Narrative* Mónica Garcia APRN.CIVIL ENGINEERING PROJECT DESIGNER - 04/10/2022 3:44 PM EDT Chief Complaint Patient presents with: Breast Problem: Left breast - inward nipple & darker color HPI Chinyere Alberts is a 87 year old female who presents here today for Above Complaints. Today: Left breast-feels like the nipple is pulling inward and is a darker color. Noticed over the past week or so. No notice of lumps or drainage. Is not painful. Had surgery on her knee last month, so hasbeen very focused on this and her therapy for this, so unsure if this breast concern has been present for longer and she may not have noticed it. Past medical history, appointments, medications, allergies reviewed. Previous Medical History PAST MEDICAL HISTORY Diagnosis Date Anemia of chronic renal failure, stage 2 (mild) 05/19/2006 Arthritis left foot and right thumb Esophageal reflux Essential hypertension, benign Essential tremor GERD (gastroesophageal reflux disease) Hiatal hernia 08/25/2018 Other and unspecified hyperlipidemia Senile osteoporosis Unspecified hypothyroidism Previous Surgical History PAST SURGICAL HISTORY Procedure Laterality Date ADENOIDECTOMY PRIMARY <AGE 14 Adenoidectomy APPENDECTOMY open COLONOSCOPY 11/28/2016 [facility]- diverticulosis. ESOPHAGOGASTRODUODENOSCOPY TRANSORAL DIAGNOSTIC 08/25/2018 EGD NEUROPLASTY &/TRANSPOS MEDIAN NRV CARPAL TUNNE Carpal tunnel decomp- left PAST SURGICAL HISTORY OF salivary gland removed- chronic infection PAST SURGICAL HISTORY OF 06-03-12 right trigger finger releases 1-4 PAST SURGICAL HISTORY OF 06-23-14 left ring trigger finger release RHINP PRIM LAT&ALAR CRTLGS&/ELVTN NASAL TI Rhinoplasty RHYTIDECTOMY NECK W/PLATYSMAL TIGHTENING eye brow lift TONSILLECTOMY PRIMARY/SECONDARY <AGE 14 Tonsillectomy TOTAL ABDOMINAL HYSTERECT W/WO RMVL TUBE OVARY Hysterectomy, DHIRAJ Family History FAMILY HISTORY Problem Relation Age of Onset Heart Mother massive HI, in her 70's other (Other) Father unknown Alzheimer's Disease Sister Cancer Maternal Grandmother GI CANCER Heart Maternal Aunt Diabetes Maternal Aunt Heart Maternal Uncle Patient Allergies ALLERGIES Allergen Reactions Genteal Eye Ointmen* Itching Itching,redness, and watery eyes Asa [Salicylates] ringing in ears Cymbalta [Duloxetin* Other: See Comments Caused nightmares Flonase [Fluticason* Other: See Comments gets jittery Lodine [Etodolac] stomach ache Sulfa (Sulfonamide * Hives Current Medications Current Outpatient Medications on File Prior to Visit Medication Sig traMADol (ULTRAM) 50 mg tablet Take 50-100 mg by mouth every 8 hours as needed. For Pain losartan (COZAAR) 50 mg tablet Take 1 tablet by mouth once daily. levothyroxine (SYNTHROID) 50 mcg tablet Take 1 tablet by mouth once daily 6 out of 7 days per week. Cholecalciferol, Vitamin D3, 25 mcg (1,000 unit) cap Take 1,000 Units by mouth once daily. rOPINIRole (REQUIP) 0.5 mg tablet TAKE 1 TAB AT LUNCH, 1 AT DINNER, 1 AT BEDTIME, 1/2 AT MIDNIGHT NEEDED (Patient taking differently: TAKE 1 TAB AT LUNCH, 1 AT DINNER, 1 1/2 AT BEDTIME) simvastatin (ZOCOR) 40 mg tablet Take 1 tablet by mouth daily at bedtime. omeprazole (PRILOSEC) 20 mg capsule Take one tablet by mouth q day calcium carbonate/vitamin D3 (CALCIUM WITH VITAMIN D ORAL) Take 1 tablet by mouth once daily. IPRATROPIUM BROMIDE NASAL Use 1 Leburn in the nose twice daily. hypromellose(GENTEAL MODERATE 0.3 % EYE DROPS) To left eye ASPIRIN 81 MG TAB Take one (1) tablet daily . clonazePAM (KLONOPIN) 0.5 mg tablet TAKE 1/2 TO 1 TABLET AT MIDNIGHT pregabalin (LYRICA) 25 mg capsule Take 1 capsule at noon and 1 capsule at midnight. (Patient takingdifferently: Take 25 mg by mouth once daily. Take 1 capsule at noon and 1 capsule at midnight.) gluc fernandez/chondro fernandez A/vit C/Mn (GLUCOSAMINE 1500 COMPLEX ORAL) Take by mouth. turmeric (CURCUMIN MISC) No current facility-administered medications on file prior to visit. Social History Social History Tobacco Use Smoking status: Never Smokeless tobacco: Never Vaping Use Vaping Use: Never used Substance Use Topics Alcohol use: No Drug use: No Review of Symptoms REVIEW OF SYSTEMS See HPI, otherwise negative EXAM: BP 132/70 (BP Site: Left Arm, BP Position: Sitting, BP Cuff Size: Regular Adult) Pulse 92 Resp 18 SpO2 100% General Appearance: Well appearing, alert, in no acute distress, well-hydrated, well nourished. andThin. Breast: Negative findings: palpation negative for masses or nodules and Positive findings: nipple inversion on left. Health Maintenance List ADVANCE DIRECTIVE DISCUSSION Never done INFLUENZA(1) due on 04/24/2022 DTAP,TDAP,TD(2 - Td or Tdap) due on 05/23/2023 DIABETES SCREEN due on 03/03/2025 BONE DENSITY Completed SHINGRIX VACCINE Completed COVID-19 VACCINE Completed PNEUMOCOCCAL: 65+ Completed Data reviewed Previous records, office notes ASSESSMENT/PLAN: 1. 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 Diagnostic mammogram and ultrasound ordered. - [facility] - US BREAST LTD LT 2. 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 Diagnostic mammogram and ultrasound ordered. - [facility] - US BREAST LTD LT Mónica Radha, ADMINISTRATIVE ACCOUNTANT.CIVIL ENGINEERING PROJECT DESIGNER documented in this encounterUpper [facility]08-18-2022 Miscellaneous Notes* Telephone Encounter - Sadaf Finn RN - 04/10/2022 3:15 PM EDT Pt called in and was scheduled 04/10/22 at 340 pm with Mónica Garcia NP. documented in this encounterUpper [facility] Center08-12-2022 Miscellaneous Notes* Telephone Encounter - Leandro Martines LPN - 04/04/2022 5:02 PM EDT Pt notified. She verbalized understanding. Leandro Martines LPN * Telephone Encounter - Gloria Garibay APRN.CNP - 04/04/2022 4:57 PM EDT Can please let patient know that I received her ultrasound results, which was negative for any blood clots. Gloria Garibay APRN.DENISE documented in this encounterUpper Valley [facility] Center08-10-2022 History of Present illness Narrative* Gloria Garibay APRN.CNP - 04/02/2022 10:32 AM EDT This is a 86 year old female who presents today with: Patient presents with: Recheck: Follow up from Urgent Care on 03/27; back pain is getting better HISTORY OF PRESENT ILLNESS: Chinyere Alberts is a 86 year old female. Patient presents with: Recheck: Follow up from Urgent Care on 03/27; back pain is getting better Pt presents today to follow-up on recent urgent care visit. Refers that she was having back pain that started on 03/18. Refers that it just got so bad that she just couldn't stand it. Refers that she was concerned about a possible kidney problem, so she went to urgent care. Had pain across the lower back. Admits that it may have been from her PT machine. She had a knee replacement last month. Urine in the urgent care showed a moderate amount of blood. She reports that she is scheduled to get blood work done to day for Dr. Harper. She has an appointment with Dr. Harper next week.. She took tylenol for the back pain. She has been having some calf tenderness in the right leg. She hasn't noticed any redness. She has swelling d/t recent surgery. No increased warmth. PAST MEDICAL HISTORY: PAST MEDICAL HISTORY Diagnosis Date Anemia of chronic renal failure, stage 2 (mild) 05/19/2006 Arthritis left foot and right thumb Esophageal reflux Essential hypertension, benign Essential tremor GERD (gastroesophageal reflux disease) Hiatal hernia 08/25/2018 Other and unspecified hyperlipidemia Senile osteoporosis Unspecified hypothyroidism PAST SURGICAL HISTORY Procedure Laterality Date ADENOIDECTOMY PRIMARY <AGE 14 Adenoidectomy APPENDECTOMY open COLONOSCOPY 11/28/2016 [facility]- diverticulosis. ESOPHAGOGASTRODUODENOSCOPY TRANSORAL DIAGNOSTIC 08/25/2018 EGD NEUROPLASTY &/TRANSPOS MEDIAN NRV CARPAL TUNNE Carpal tunnel decomp- left PAST SURGICAL HISTORY OF salivary gland removed- chronic infection PAST SURGICAL HISTORY OF 06-03-12 right trigger finger releases 1-4 PAST SURGICAL HISTORY OF 06-23-14 left ring trigger finger release RHINP PRIM LAT&ALAR CRTLGS&/ELVTN NASAL TI Rhinoplasty RHYTIDECTOMY NECK W/PLATYSMAL TIGHTENING eye brow lift TONSILLECTOMY PRIMARY/SECONDARY <AGE 14 Tonsillectomy TOTAL ABDOMINAL HYSTERECT W/WO RMVL TUBE OVARY Hysterectomy, DHIRAJ ALLERGIES Genteal Eye Ointment [Other], Asa [Salicylates], Cymbalta [Duloxetine], Flonase [Fluticasone], Lodine [Etodolac], and Sulfa (Sulfonamide Antibiotics) MEDICATIONS Current Outpatient Medications Medication Sig cephALEXin (KEFLEX) 500 mg capsule Take 1 capsule by mouth twice daily for 7 days. losartan (COZAAR) 50 mg tablet Take 1 tablet by mouth once daily. levothyroxine (SYNTHROID) 50 mcg tablet Take 1 tablet by mouth once daily 6 out of 7 days per week. Cholecalciferol, Vitamin D3, (VITAMIN D) 25 mcg (1,000 unit) cap Take 1,000 Units by mouth once daily. rOPINIRole (REQUIP) 0.5 mg tablet TAKE 1 TAB AT LUNCH, 1 AT DINNER, 1 AT BEDTIME, 1/2 AT MIDNIGHT NEEDED (Patient taking differently: TAKE 1 TAB AT LUNCH, 1 AT DINNER, 1 1/2 AT BEDTIME ) clonazePAM (KLONOPIN) 0.5 mg tablet TAKE 1/2 TO 1 TABLET AT MIDNIGHT pregabalin (LYRICA) 25 mg capsule Take 1 capsule at noon and 1 capsule at midnight. (Patient takingdifferently: Take 25 mg by mouth once daily. Take 1 capsule at noon and 1 capsule at midnight.) simvastatin (ZOCOR) 40 mg tablet Take 1 tablet by mouth daily at bedtime. omeprazole (PRILOSEC) 20 mg capsule Take one tablet by mouth q day gluc fernandez/chondro fernandez A/vit C/Mn (GLUCOSAMINE 1500 COMPLEX ORAL) Take by mouth. turmeric (CURCUMIN MISC) calcium carbonate/vitamin D3 (CALCIUM WITH VITAMIN D ORAL) Take 1 tablet by mouth once daily. IPRATROPIUM BROMIDE NASAL Use 1 Leburn in the nose twice daily. hypromellose(GENTEAL MODERATE 0.3 % EYE DROPS) To left eye ASPIRIN 81 MG TAB Take one (1) tablet daily . No current facility-administered medications for this visit. FAMILY HISTORY Problem Relation Age of Onset Heart Mother massive HI, in her 70's other (Other) Father unknown Alzheimer's Disease Sister Cancer Maternal Grandmother GI CANCER Heart Maternal Aunt Diabetes Maternal Aunt Heart Maternal Uncle Social History Tobacco Use Smoking status: Never Smokeless tobacco: Never Vaping Use Vaping Use: Never used Substance Use Topics Alcohol use: No Drug use: No EXAM: BP 138/76 Pulse 80 Resp 18 SpO2 98% PHYSICAL EXAM: General Appearance: Well appearing, alert, in no acute distress, well-hydrated, well nourished.. Skin: Skin color, texture, turgor normal, no suspicious rashes or lesions. Head: Normocephalic, no masses, lesions, tenderness or abnormalities. Eyes: Anicteric sclera. Extraocular movements are intact. . Back:no pain to palpation of vertebrae, no muscle tenderness Lungs: Lungs clear to auscultation. No wheezing, rhonchi, rales.. Heart: RRR without murmur, gallop, or rubs. No ectopy. Extremities: No deformities, knee incision without s/s of infection. RLE with swelling. No redness.No increased warmth. Good capillary refill. . Neurologic: Gait normal with walker. ASSESSMENT/PLAN: 1. Microscopic hematuria - ICD9: 599.72, ICD10: R31.29 (primary diagnosis) + hematuria on urine dip. Will get microscopic. Order given to take with patient, as she is going to get labs/urine completed for Dr. Harper. - URINALYSIS, WITH MICROSCOPIC 2. Right leg pain - ICD9: 729.5, ICD10: M79.604 + right calf pain. Swelling d/t post-surgery. No redness/increased warmth; however, since she does have risk factors, will get STAT ultrasound. - US LEG VEIN DVT UNL VAS LAB Discussed treatment plan and patient voices understanding. Patient's questions answered appropriately. Medications and potential side effects were discussed and patient voices understanding. Return to the office as scheduled or as needed for worsening/no improvement. Gloria Garibay APRN.DENISE The patient indicates understanding of these issues and agrees with the plan. documented in this encounterUpper [facility] Center08-09-2022 Miscellaneous Notes* Telephone Encounter - JOSE Blake - 04/01/2022 8:11 AM EDT TC to patient who verbalizes understanding and will increase dosage. Pt says she has plenty of medication left at this time but will let us know when she needs a refill. JOSE Blake * Telephone Encounter - Tete Sal APRN.CNP - 03/31/2022 4:15 PM EDT Please have patient increase dose so that she is taking one capsule at noon and then one in the evening. If symptoms persist may need to increase dose further. Please let me know if she needs a RF. * Telephone Encounter - JOSE Blake - 03/31/2022 2:38 PM EDT TC to patient who says that the jerking is starting around 2 in the morning and continuing throughout the morning and early afternoon. It will last most of the day and sometimes continue until her next evening dose of Lyrica. Pt says she is taking 1 capsule, 25 mg of the Lyrica around 8PM before bed. Please advise. Thank you. JOSE Blake documented in this encounterUpper [facility] Center08-05-2022 Miscellaneous Notes* Telephone Encounter - Lauren Vogt LPN - 03/28/2022 6:44 PM EDT Phone call placed, patient advised (see prior provider encounter) Patient verbalized understanding, agreed with plan of care. Lauren Vogt LPN * Telephone Encounter - Lucía Oliver PA-C - 03/28/2022 5:53 PM EDT Please call patient and let know their urine culture did not show an infection. if antibiotics are helping finish those, otherwise follow up with pcp with further symptoms and for the blood in her urine. documented in this encounterUpper Valley [facility] Center08-04-2022 Instructions* Patient Instructions* Ramu Ling APRN.DENISE - 03/27/2022 3:47 PM EDT URINARY TRACT INFECTION GENERAL INFORMATION: A urinary tract infection (UTI) is an infection of the bladder or kidneys. A bladder infection, called cystitis, is the more common type. If the infection travels up to the kidneys, it is called pyelonephritis. This can be more serious. UTIs are a common problem in women. Having sexual relations can leave a woman more susceptible to developing a UTI, but it is not sexually transmitted like gonorrhea. Some women have a problem with recurrent UTIs. INSTRUCTIONS: 1. Your doctor prescribed an antibiotic to treat the UTI. Take exactly as directed. Be sure to takeall the medication prescribed, even if your symptoms disappear. If you stop treatment early, the infection may not be fully treated and the symptoms could come back again. 2. Get plenty of rest. You may take acetaminophen for fever and aches. 3. Drink 6 to 8 glasses of fluids, especially water, every day. This helps wash out germs from yoururinary tract. Cranberry juice or other sources of vitamin C are also good for you. 4. Urinate often, as soon as you feel the urge. Empty your bladder completely. Urinate before and after you have sex. 5. Always wipe from front to back after going to the bathroom. This pushes germs away from your bladder, rather than towards it. 6. Showers are better than baths, and you should wash the genital area daily. Avoid bubble bath or bath oils if you do take a bath. 7. Wear underwear and pantyhose with a cotton crotch. CONTACT YOUR DOCTOR: 1. You have a temperature over 102F (38.8C) after 48 hours on medication. 2. You notice blood in your urine. 3. Your symptoms don't improve in 2 days. 4. You develop nausea, vomiting, diarrhea, or a rash. 5. You develop new or unexplained symptoms. These may be related to the medication you are taking. 6. Your symptoms return after you finish treatment. RETURN TO THE EMERGENCY DEPARTMENT IF: You develop vomiting and can't keep your medication or fluids down. documented in this encounterUpper Valley [facility] Center08-04-2022 History of Present illness Narrative* Ramu Ling APRN.CNP - 03/27/2022 3:08 PM EDT Subjective HPI Nontoxic-appearing female presents urgent care chief complaint lower back pain and dysuria. Duration of symptoms 2 days. Associated symptoms lower back pain dysuria. Patient states history of UTIs this feels similar. Has not used any OTC medications. Denies any pain currently. Denies any fever bodyaches chills nausea vomiting abdominal pain flank pain vaginal discharge itching or rashes. Past medical history prescription medication use allergies reviewed. .Patient presents with: Pain, Back: lower back pain rated 6, unknown time, pain with urination PAST MEDICAL HISTORY Diagnosis Date Anemia of chronic renal failure, stage 2 (mild) 05/19/2006 Arthritis left foot and right thumb Esophageal reflux Essential hypertension, benign Essential tremor GERD (gastroesophageal reflux disease) Hiatal hernia 08/25/2018 Other and unspecified hyperlipidemia Senile osteoporosis Unspecified hypothyroidism PAST SURGICAL HISTORY Procedure Laterality Date ADENOIDECTOMY PRIMARY <AGE 14 Adenoidectomy APPENDECTOMY open COLONOSCOPY 11/28/2016 [facility]- diverticulosis. ESOPHAGOGASTRODUODENOSCOPY TRANSORAL DIAGNOSTIC 08/25/2018 EGD NEUROPLASTY &/TRANSPOS MEDIAN NRV CARPAL TUNNE Carpal tunnel decomp- left PAST SURGICAL HISTORY OF salivary gland removed- chronic infection PAST SURGICAL HISTORY OF 06-03-12 right trigger finger releases 1-4 PAST SURGICAL HISTORY OF 06-23-14 left ring trigger finger release RHINP PRIM LAT&ALAR CRTLGS&/ELVTN NASAL TI Rhinoplasty RHYTIDECTOMY NECK W/PLATYSMAL TIGHTENING eye brow lift TONSILLECTOMY PRIMARY/SECONDARY <AGE 14 Tonsillectomy TOTAL ABDOMINAL HYSTERECT W/WO RMVL TUBE OVARY Hysterectomy, DHIRAJ ALLERGIES Genteal Eye Ointment [Other], Asa [Salicylates], Cymbalta [Duloxetine], Flonase [Fluticasone], Lodine [Etodolac], and Sulfa (Sulfonamide Antibiotics) MEDICATIONS losartan (COZAAR) 50 mg tablet Take 1 tablet by mouth once daily. levothyroxine (SYNTHROID) 50 mcg tablet Take 1 tablet by mouth once daily 6 out of 7 days per week. Cholecalciferol, Vitamin D3, (VITAMIN D) 25 mcg (1,000 unit) cap Take 1,000 Units by mouth once daily. rOPINIRole (REQUIP) 0.5 mg tablet TAKE 1 TAB AT LUNCH, 1 AT DINNER, 1 AT BEDTIME, 1/2 AT MIDNIGHT NEEDED simvastatin (ZOCOR) 40 mg tablet Take 1 tablet by mouth daily at bedtime. omeprazole (PRILOSEC) 20 mg capsule Take one tablet by mouth q day gluc fernandez/chondro fernandez A/vit C/Mn (GLUCOSAMINE 1500 COMPLEX ORAL) Take by mouth. calcium carbonate/vitamin D3 (CALCIUM WITH VITAMIN D ORAL) Take 1 tablet by mouth once daily. hypromellose(GENTEAL MODERATE 0.3 % EYE DROPS) To left eye ASPIRIN 81 MG TAB Take one (1) tablet daily . clonazePAM (KLONOPIN) 0.5 mg tablet TAKE 1/2 TO 1 TABLET AT MIDNIGHT pregabalin (LYRICA) 25 mg capsule Take 1 capsule at noon and 1 capsule at midnight. turmeric (CURCUMIN MISC) IPRATROPIUM BROMIDE NASAL Use 1 Leburn in the nose twice daily. FAMILY HISTORY Problem Relation Age of Onset Heart Mother massive HI, in her 70's other (Other) Father unknown Alzheimer's Disease Sister Cancer Maternal Grandmother GI CANCER Heart Maternal Aunt Diabetes Maternal Aunt Heart Maternal Uncle Social History Tobacco Use Smoking status: Never Smoker Smokeless tobacco: Never Used Vaping Use Vaping Use: Never used Substance Use Topics Alcohol use: No Drug use: No BP 160/68 Pulse 95 Temp 37.1 C (98.8 F) Resp 16 SpO2 98% Review of Systems Constitutional: Negative for chills, fever and malaise/fatigue. HENT: Negative for congestion, ear discharge, ear pain, sinus pain and sore throat. Eyes: Negative for blurred vision, pain, discharge and redness. Respiratory: Negative for cough, hemoptysis, sputum production, shortness of breath, wheezing and stridor. Cardiovascular: Negative for chest pain. Gastrointestinal: Negative for abdominal pain, diarrhea, nausea and vomiting. Genitourinary: Positive for dysuria and frequency. Negative for flank pain, hematuria and urgency. Musculoskeletal: Negative for myalgias. Skin: Negative for itching and rash. Neurological: Negative for dizziness and headaches. Objective Physical Exam Constitutional: General: She is not in acute distress. Appearance: She is not diaphoretic. HENT: Head: Normocephalic. Eyes: Conjunctiva/sclera: Conjunctivae normal. Pupils: Pupils are equal, round, and reactive to light. Cardiovascular: Rate and Rhythm: Normal rate and regular rhythm. Heart sounds: Normal heart sounds. Pulmonary: Effort: Pulmonary effort is normal. No tachypnea, accessory muscle usage or respiratory distress. Breath sounds: Normal breath sounds. No stridor. No wheezing, rhonchi or rales. Abdominal: Palpations: Abdomen is soft. Tenderness: There is no abdominal tenderness. There is no right CVA tenderness, left CVA tenderness, guarding or rebound. Musculoskeletal: Cervical back: Normal range of motion and neck supple. No rigidity or tenderness. Lymphadenopathy: Cervical: No cervical adenopathy. Skin: General: Skin is warm and dry. Neurological: Mental Status: She is alert and oriented to person, place, and time. ASSESSMENT/PLAN: 1. Urinary frequency - ICD9: 788.41, ICD10: R35.0 (primary diagnosis) - UA DIP, URINE (POC) - URINE CULTURE 2. Burning with urination - ICD9: 788.1, ICD10: R30.0 Blood noted on urine dip. No leukocytes or nitrites. With patient's presenting symptoms and historyof UTIs patient will be started on Keflex. Will discontinue if culture is negative. We discussed differential diagnosis such as kidney stones. Red flags for prompt reevaluation discussed. Patient waseducated on supportive therapies. Follow-up appointment made for repeat urine dip and blood pressure check. Patient was instructed to immediately proceed to emergency room for any new, worsening, or symptoms lasting longer than anticipated. The patient's clinical presentation is otherwise unremarkable at this time. Based on exam and clinical finding, the patient is stable for discharge. Plan of care was discussed with patient. Patient verbalizes understanding and agrees to plan of care. This note was generated using Kynetx software. It may contain errors in wording, punctuation, or spelling. Ramu Ling APRN.DENISE documented in this encounter[facility]22 Miscellaneous Notes* Telephone Encounter - Gricelda JOSE Cervantes - 03/04/2022 10:46 AM EDT TC to [facility] to inquire about why a prior auth is needing completed when one was already done and approved. This staff was advised that the prescription is being denied due to a drug interaction with the Lyrica and Oxycodone prescribed for the patient. This staff was advised that the pharmacist can override this and fill the script or they can call the [facility] Help Desk at [phone]. TC to pharmacy who states that the prior authorization if only for the name brand Lyrica which is still $500/month after insurance. When overriding the prescription the pharmacist is denied coverage for generic under the PA so they have been filling the patient's prescription with a GoodRx coupon for $19/month for the generic prescription. Closing encounter at this time. JOSE Blake * Telephone Encounter - JOSE Blake - 03/04/2022 8:53 AM EDT TC to patient to see if taking once or twice a day. Pt says she is taking once a day at bedtime. With this prescription, patient should have enough medication to last until April. TC to pharmacy to verify if patient still has refills available. Patient has one refill at the pharmacy for 60 days. When pharmacy tried to put refill through, insurance is requesting a prior auth. PA has already been approved through 08/09/2022 with documentation in patient's chart. Fax with copy of PA approval sent via fax to [facility] in [place] at [phone]. JOSE Blake * Telephone Encounter - Priscila Fatima - 03/04/2022 8:48 AM EDT Patient has been identified by name and date of : Yes Pending Prescriptions Disp Refills PREGABALIN 25 MG CAPSULE 60 capsule 2 Si capsule at midnight. RENETTA Class: C-V AUNG: No RX INSTRUCTIONS: Patient aware RX will be sent to pharmacy. No need to notify patient. Priscila Fatima documented in this encounterUpper [facility] Center07-06-2022 Note Discharge Instructions Thank you for allowing [facility] to assist you with your healthcare needs. The following is importantdischarge information regarding your hospital visit. Your Care Team [facility] Your Diagnosis Osteoarthritis Hyperlipidemia Hypertension Hypothyroidism RLS (restless legs syndrome) Status post total right knee replacement What to do next Follow Up Appointments Follow Up with TINO MOSQUEDA PA-C, Orthopedic When 03/10/2022 10:45 AM EDT Why: Follow-up as scheduled Where: [facility] [address] [place] [address]- Follow Up with [facility] When 02/28/2022 10:30 AM EDT Why: Follow-up as scheduled Where: Follow Up with [facility] - Patient had home medication brought in. Please send home with patient. When Allergies Genteal ophthalmic ointment (Burning) sulfa drugs (Rash) Medications Please ask your primary doctor or pharmacist before taking any other medication not listed, including over the counter drugs, herbal medications, vitamins and or supplements as they may interact withyour home medications. What How Much When Why Instructions Last Dose New docusate-senna (Senokot S 50 mg-8.6 mg oral tablet) 2 tab(s) by mouth Two (2) times a day Take until first bowel movement, then as needed Pickup at [facility] New oxyCODONE (oxyCODONE 5 mg oral tablet ( IMMEDIATE release )) See instructions Status post total right knee replacement 1-2 tab(s) Oral q4h Pickup at [facility] 1811 Changed acetaminophen (Tylenol) 1,000 Milligram by mouth Three (3) times a day not to exceed 3000 mg/ day Changed aspirin 81 Milligram by mouth Twice daily with meals Take 81 mg aspirin twice daily with food for 4 weeks postoperatively for DVT prophylaxis Changed calcium-vitamin D (calcium-vitamin D 250 mg-12.5 mcg (500 intl units) oral tablet, chewable) 1 tab(s) Chewed Once a day (in the morning) Changed clonazePAM (clonazePAM 0.5 mg oral tablet) 0.5 tab(s) by mouth Once a day Changed ipratropium nasal (ipratropium 42 mcg/ inh (0.06%) nasal spray) 1 spray(s) in the nose Three (3) times a day as needed for as needed for allergy symptoms Changed levothyroxine (levothyroxine 50 mcg (0.05 mg) oral tablet) 1 tab(s) by mouth Every Sun/Thu/Thu//Thu/Thu Changed losartan (losartan 50 mg oral tablet) 1 tab(s) by mouth Daily at bedtime Changed ocular lubricant (GenTeal Tears Moderate) 1 Drops Right eye Two (2) times a day as needed for as needed for dry eyes Changed ocular lubricant (GenTeal Tears Severe) 1 Drops Left eye Two (2) times a day as needed for Dry eyes Changed omeprazole (omeprazole 20 mg oral delayed release capsule) 1 cap by mouth Once a day (in the morning) Changed pregabalin (pregabalin 25 mg oral capsule) 1 cap by mouth Daily at bedtime Changed rOPINIRole (rOPINIRole 0.5 mg oral tablet) TAKE 1 TABLET BY MOUTH AT LUNCH, AND 1 TAB AT DINNER, 1 and 1/ 2 TAB AT BEDTIME, AND 1/ 2 TAB AT MIDNIGHT Unchanged cholecalciferol (Vitamin D3) 100 Microgram by mouth Every day Unchanged chondroitin-glucosamine (Chondroitin-Glucosamine 400 mg-500 mg oral capsule) Unchanged herbal/ nutritional product (turmeric 1000 mg oral capsule) 1 cap by mouth Two (2) times a day Unchanged simvastatin (simvastatin 40 mg oral tablet) 1 tab(s) by mouth Daily at bedtime Pharmacy Information [facility]: [address] [place], [place] [phone] Please take this list to your next doctor s visit. Bring all medications you take, including over the counter medications, herbals and other supplements with you to your doctor s visit. Patients and families are reminded to discard old lists and to update any records with all medication providers or retail pharmacies. Education Materials [facility] Post-operative Instructions PLEASE FOLLOW [facility] POST-OP INSTRUCTIONS GIVEN WATCH FOR SIGNS OF INFECTION: call the office ([phone]) if experencing any of the following: (Usually appears 36-48 hours after surgery) Increased temperature (101 degrees Fahrenheit or higher) Redness or swelling Increased uncontrolled pain Foul odor or drainage Calf discomfort Significant swelling Or if having any chest pain, shortness of breath, or difficulty breathing or swallowing call the office or go the nearest Emergency Room. If you have any questions, please call your doctor at the number listed on your follow up instructions. Form: 338A (63846) R: 05/07 Additional Information VACCINATE! IT SAVES LIVES! Members of the community who have not yet received the COVID-19 vaccine and would like to receive it can visit one of [facility] vaccine clinics. There are many vaccine clinic locations within the [facility]. For locations and available times, please visit [email or web address] It is important to note that some COVID mobile vaccine clinics are held outdoors and may be canceled in rainy or stormy conditions. To learn more about pediatric vaccinations (ages 5-11), we invite you to visit the [facility] webpage. [email or web address] learn more about the COVID-19 vaccine, we invite you to visit the [facility] website for a list of frequently asked questions. [email or web address] [facility] Patient Portal Access Instructions: Stay connected with your healthcare team and access your personal medical information anytime with the [facility] Patient Portal.If you would like a full copy of your medical records, please contact the [facility] Medical Records Department, Thursday through Thursday between 8a.m. and 4:30p.m. Please follow the directions below to access the portal: 1.Access the email account you provided upon registration to the hospital.2.Look for an invitation email from [facility].3.Open the email and access the invitation link: Accept Invitation to [facility]4.Fill in the required moreno to create your account. Sign into www.World Vital Records with your username and password that you created in the above steps to stay up to date. You can then view a summary of results, a summary of your visits, and the ability to download your summaries to your computer or send the information securely to a physician. Remember that your healthcare information is confidential, so carefully consider who you will allow to register on the [facility] Patient Portal for access to your information. You can also access the [facility] Patient Portal on the Sword.com. Simply click on Health Records under [facility] and then click on the [employer] logo. HOW TO SAFELY DISPOSE OF PRESCRIPTION MEDICATIONS Please use one of the following methods to safely dispose of your unused medications. 1.Use a drug disposal kit: the drug disposal pouch allows you to safely discard your old and unuseddrugs. Ask your nurse to give you one when you are discharged.2.Visit a local take-back location: Many local pharmacies and police departments have programs that collect old and unwanted prescriptiondrugs. Call your local pharmacy or go to http://Billboard [email or web address] [email or web address]/1N8Wd4z to find one close to you.3.Make use of household items: Use cat litter or old coffee grounds to dispose medications if other options arenot available. Mix your drugs with these household products, seal them in an airtight container andthrow it into the garbage. Call [facility]: [phone] to be sure your drugs can be disposed of in this way. Some medicines may require a different approach.4.Never flush your medications down the toilet. IF YOU HAVE BEEN PRESCRIBED AN OPIOID FOR PAIN If you have been prescribed an opioid (such as hydrocodone, oxycodone or morphine), it is critical to understand the possible side effects and risks of opioid pain medications. Even when taken as directed, opioids can have several side effects including: Tolerance, meaning you might need to take more of a medication for the same pain relief. Nausea, vomiting and/or constipation. Sleepiness, dizziness, dry mouth, confusion, depression or itching. Physical dependence, meaning you have withdrawal symptoms when a medication is stopped, can develop within a few days. KNOW YOUR RESPONSIBILITIES It is important to know exactly how much and how often to take the opioid pain medications you are prescribed. Never take opioids in higher amounts or more often than prescribed. Do not combine opioids with alcohol or other drugs that cause drowsiness, such as benzodiazepines, also known as benzos, including diazepam and alprazolam, muscle relaxants or sleep aids. Never sell or share prescription opioids. This is illegal. Store opioids in a secure place and out of reach of others (including children, family, friends and visitors). The last page of this document has been signed and retained as a CHART COPY. Signatures Patient Education Materials [place] [facility] Post-op Instruction 03/2017 ([id number]) Medication Leaflets My discharge plan and instructions have been reviewed and explained to me and I,VASILE CAIVALERIECHINYERE Parekh understand my current condition and have read and understand these discharge instructions. I have received a written copy of the plan/instructions. If I have questions, I am aware that I should contact my doctor. 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 Doing well overall, sitting up in the chair and participated with physical therapy. Patient states she slept okay last night, called it a bit more of a nap. Patient tolerating p.o. intake without any nausea or vomiting. Patient reports she will be dischargedhome later today. Objective Vitals and Measurements T: 37.0 C (Oral) TMIN: 35.7 C (Temporal Artery) TMAX: 37.0 C (Oral) HR: 72(Monitored) RR: 18 BP: 132/61 SpO2: 98% HT: 156 cm WT: 46 kg BMI: 18.9 Intake and Output 7AM Yesterday to 7AM Today Intake and Output (Last 24 hours) Intake Oral Intake 240.00 Administration Information 517.11 Output Urine Count 1.00 Total Summary Total Intake 757.11 Total Output 0.00 Fluid Balance 757.11 Physical Exam Constitutional: Patient is alert and oriented x3. In no acute distress. Eyes: PERRLA, EOM intact. ENT: hearing grossly intact, mucous membranes moist, Respiratory: Breathing nonlabored, lungs clear to auscultation bilaterally. Heart: Regular rate and rhythm. S1 S2 heard. GI: Bowel sounds x4 quadrants. No rebound tenderness or guarding. Neuro: speech clear. FRIAS equally. memory intact Skin: no rashes or lesions noted. skin warm, dry and intact. Weight Dosing Weight: 46 kg (02/25/22) Dosing Weight: 46 kg (02/25/22) Medications Medications (29) Active Scheduled: (15) acetaminophen 500 mg Tablet 1,000 mg 2 tab(s), Oral, q6hr aspirin 81 mg Chewable 81 mg 1 tab(s), Oral, BIDM atorvastatin 10 mg tablet 20 mg 2 tab(s), Oral, qHS docusate sodium 100 mg Capsule 100 mg 1 cap(s), Oral, BID docusate-senna (Senokot S) 50 mg-8.6 mg Tablet 2 tab(s), Oral, BID famotidine 20 mg tablet 20 mg 1 tab(s), Oral, qDay levothyroxine 50 mcg tablet 50 mcg 1 tab(s), Oral, Sun/Thu/Thu//Thu/Sat magnesium hydroxide 8% Suspension 30 mL UD 30 mL, Oral, Daily multivitamin (Myadec) with minerals Therapeutic Multiple Vitamins with Minerals Tablet 1 tab(s), Oral, qDayM pantoprazole 20 mg EC tablet 20 mg 1 tab(s), Oral, qAM pregabalin 25 mg capsule 25 mg 1 cap(s), Oral, qHS rOPINIRole 0.5 mg tablet 0.25 mg 0.5 tab(s), Oral, qDay rOPINIRole 1 mg tablet 0.5 mg 0.5 tab(s), Oral, qDay rOPINIRole 1 mg tablet 0.5 mg 0.5 tab(s), Oral, qDay rOPINIRole 1 mg tablet 0.75 mg 0.75 tab(s), Oral, qDay Continuous: (1) Lactated Ringers 1,000 mL 1,000 mL, Intravenous, 100 mL/hr PRN: (13) acetaminophen 325 mg Tablet 650 mg 2 tab(s), Oral, q4h clonazePAM 0.5 mg tablet 0.25 mg 0.5 tab(s), Oral, qDay diphenhydramine 25 mg tablet 25 mg 1 tab(s), Oral, q6h diphenhyDRAMINE 50 mg/mL (1 mL) INJ 25 mg 0.5 mL, IV Push, q6h GenTeal Tears Moderate Strength 1 drop(s), Eye, right, BID GenTeal Tears Severe Strength 1 drop(s), Eye, left, BID ipratropium 42 mcg/inh nasal spray (0.06%) 15 mL bottle 1 spray(s), Nasal, TID morphine 4 mg/mL 1mL INJ 2 mg 0.5 mL, IV Push, q1h ondansetron 2 mg/ 1 mL 2 mL INJ 4 mg 2 mL, IV Push, q8h oxycodone 5 mg tablet (immediate release) 5 mg 1 tab(s), Oral, q4h oxycodone 5 mg tablet (immediate release) 10 mg 2 tab(s), Oral, q4h prochlorperazine 10 mg/2 mL vial 5 mg 1 mL, IV Push, q6h sodium biphosphate-sodium phosphate 19 gm-7 gm Enema 133 mL, Rectal, qDay Lab Results 02/26 05:02 WBC: 9.7 Hgb: 11.6 L Hct: 34.3 L Platelet: 137 Neutrophil %: 89.7 H Glucose Level: 128 H Sodium Level: 141 Potassium Level: 4.9 BUN: 19 H Creatinine Lvl (s): 1.21 H Imaging Results and Diagnostics XR Knee 1 or 2 Views Right Result Date: February 25, 2022 Verified By: GELACIO PORRAS DO CLINICAL STATEMENT: IMPRESSION: Postsurgical changes related to total right knee arthroplasty. No evidenceof hardware failure. EKG No qualifying data available. Assessment/Plan 1. Osteoarthritis 2. Hyperlipidemia 3. Hypertension 4. Hypothyroidism 5. RLS (restless legs syndrome) Patient is postop day 1 right knee arthroplasty with Dr. Yates secondary to osteoarthritis. DVT prophylaxis and pain control per primary team. Continue PT/OT. Patient with noted postoperative blood loss anemia, hemoglobin 11.6, hematocrit 34.3. History of hyperlipidemia continue statin. History of hypertension we will hold losartan this morning due to slight bump in creatinine, 1.2 this morning. BP stable. History of hypothyroidism continue levothyroxine. History of restless leg syndrome continue ropinirole, continue clonazepam nightly as needed. Patient medically stable for discharge home today from hospitalist standpoint, with routine follow up with PCP. Digitally Signed by JOHN SZYMANSKI on 02/26/2022 09:57 AM [facility]07-06-2022 Hospital Discharge instructions Patient Education 02/26/2022 07:25:18 [facility] Post-op Instruction 03/2017 (53722) [facility] Post-operative Instructions PLEASE FOLLOW [facility] POST-OP INSTRUCTIONS GIVEN WATCH FOR SIGNS OF INFECTION: call the office ([phone]) if experencing any of the following: (Usually appears 36-48 hours after surgery) Increased temperature (101 degrees Fahrenheit or higher) Redness or swelling Increased uncontrolled pain Foul odor or drainage Calf discomfort Significant swelling Or if having any chest pain, shortness of breath, or difficulty breathing or swallowing call the office or go the nearest Emergency Room. If you have any questions, please call your doctor at the number listed on your follow up instructions. Form: 338A (79061) R: 12/28 Follow Up Care 01/09/2022 15:10:15 With:[facility] - Patient had home medication brought in. Please send home with patient. Address:Unknown When: Unknown With:[facility] Address: When:02/28/2022 10:30:00 Comments:Follow-up as scheduled With:TINO MOSQUEDA PA-C, Orthopedic Address: [facility] [address] [place] [address]- When:03/10/2022 10:45:00 Comments:Follow-up as scheduled [facility] 07-06-2022 Note Date of Service February 26, 2022 Subjective The patient was sitting in bed upon examination. Patient denies any chest pain, shortness of breath, dizziness, lightheadedness, nausea or vomiting, or calf pain. Patient states she did have some nausea yesterday but this has resolved today. No adverse overnight events. Pain has been controlled on medications. Overall patient is doing well. She does have pain when she gets up and walks. She did participate in some physical therapy yesterday. Plan is for her to go home with her upon discharge. Objective Vitals and Measurements T: 37.0 C (Oral) TMIN: 35.7 C (Temporal Artery) TMAX: 37.0 C (Oral) HR: 72(Monitored) RR: 18 BP: 132/61 SpO2: 98% HT: 156 cm WT: 46 kg BMI: 18.9 Intake and Output 7AM Yesterday to 7AM Today Intake and Output (Last 24 hours) Intake Administration Information 1617.11 Output Intra-Op EBL 20.00 Urine Count 1.00 Total Summary Total Intake 1617.11 Total Output 20.00 Fluid Balance 1597.11 Physical Exam Vital signs stable, afebrile 's and SCDs are in place bilaterally Patient is able to plantarflex and dorsiflex actively Sensation is intact to saphenous, sural, superficial and deep peroneal, and tibial distribution Proximal pin site dressing and main Mepilex dressing are clean dry and intact. There is drainage over the distal pin site dressing. Negative signs and symptoms of DVT, negative Homans bilaterally Weight Dosing Weight: 46 kg (02/25/22) Dosing Weight: 46 kg (02/25/22) Medications Medications (31) Active Scheduled: (17) acetaminophen 500 mg Tablet 1,000 mg 2 tab(s), Oral, q6hr aspirin 81 mg Chewable 81 mg 1 tab(s), Oral, BIDM atorvastatin 10 mg tablet 20 mg 2 tab(s), Oral, qHS bisacodyl 5 mg EC tablet 10 mg 2 tab(s), Oral, Once docusate sodium 100 mg Capsule 100 mg 1 cap(s), Oral, BID docusate-senna (Senokot S) 50 mg-8.6 mg Tablet 2 tab(s), Oral, BID famotidine 20 mg tablet 20 mg 1 tab(s), Oral, qDay levothyroxine 50 mcg tablet 50 mcg 1 tab(s), Oral, Sun/Thu/Thu//Thu/Sat losartan 50 mg tablet 50 mg 1 tab(s), Oral, qHS magnesium hydroxide 8% Suspension 30 mL UD 30 mL, Oral, Daily multivitamin (Myadec) with minerals Therapeutic Multiple Vitamins with Minerals Tablet 1 tab(s), Oral, qDayM pantoprazole 20 mg EC tablet 20 mg 1 tab(s), Oral, qAM pregabalin 25 mg capsule 25 mg 1 cap(s), Oral, qHS rOPINIRole 0.5 mg tablet 0.25 mg 0.5 tab(s), Oral, qDay rOPINIRole 1 mg tablet 0.5 mg 0.5 tab(s), Oral, qDay rOPINIRole 1 mg tablet 0.5 mg 0.5 tab(s), Oral, qDay rOPINIRole 1 mg tablet 0.75 mg 0.75 tab(s), Oral, qDay Continuous: (1) Lactated Ringers 1,000 mL 1,000 mL, Intravenous, 100 mL/hr PRN: (13) acetaminophen 325 mg Tablet 650 mg 2 tab(s), Oral, q4h clonazePAM 0.5 mg tablet 0.25 mg 0.5 tab(s), Oral, qDay diphenhydramine 25 mg tablet 25 mg 1 tab(s), Oral, q6h diphenhyDRAMINE 50 mg/mL (1 mL) INJ 25 mg 0.5 mL, IV Push, q6h GenTeal Tears Moderate Strength 1 drop(s), Eye, right, BID GenTeal Tears Severe Strength 1 drop(s), Eye, left, BID ipratropium 42 mcg/inh nasal spray (0.06%) 15 mL bottle 1 spray(s), Nasal, TID morphine 4 mg/mL 1mL INJ 2 mg 0.5 mL, IV Push, q1h ondansetron 2 mg/ 1 mL 2 mL INJ 4 mg 2 mL, IV Push, q8h oxycodone 5 mg tablet (immediate release) 5 mg 1 tab(s), Oral, q4h oxycodone 5 mg tablet (immediate release) 10 mg 2 tab(s), Oral, q4h prochlorperazine 10 mg/2 mL vial 5 mg 1 mL, IV Push, q6h sodium biphosphate-sodium phosphate 19 gm-7 gm Enema 133 mL, Rectal, qDay Lab Results 02/26 05:02 WBC: 9.7 Hgb: 11.6 L Hct: 34.3 L Platelet: 137 Neutrophil %: 89.7 H Glucose Level: 128 H Sodium Level: 141 Potassium Level: 4.9 BUN: 19 H Creatinine Lvl (s): 1.21 H EKG No qualifying data available. Assessment/Plan 1. Osteoarthritis 1. Status post right total knee arthroplasty postop day #1 2. Continue pain medications: Tylenol and oxycodone 3. DVT prophylaxis: Take 81 mg aspirin twice daily with food for 4 weeks postoperatively for DVT prophylaxis 4. Physical therapy: Weightbearing as tolerated with walker 5. H & H: 11.6/34.3, asymptomatic. Postoperative anemia secondary to acute blood loss from surgery without intraoperative complications. 6. Encouraged incentive spirometry 7. Continue postoperative medical management per medicine: Patient with current creatinine at 1.21.Patient does have underlying chronic kidney disease. Preoperatively her creatinine was at 1.02 8. Disposition: Plan will be for probable discharge home today as long as pain is well controlled, tolerates physical therapy, and cleared by medicine. Prescriptions will be E scribed Vonda Sawyer. She will follow-up per postop instructions. Upon discharge she will contact her office with any concerns or questions. Does have outpatient physical therapy established. I have reviewed the [place] Automated Rx Reporting System (OARRS) report for this patient for refill pattern and other prescriber involvement as part of the appropriate surveillance for the provision ofacute and chronic controlled medications. The report was requested and reviewed on the date of thisentry, and was considered in the prescribing process This dictation was created using voice recognition software. Phonetic and/or grammatical errors mayexist. 2. Hyperlipidemia 3. Hypertension 4. Hypothyroidism 5. RLS (restless legs syndrome) Digitally Signed by TINO MOSQUEDA PA-C on 02/26/2022 07:25 AM [facility]07-05-2022 Note ORIGINAL EXAMINATION: TWO XRAY VIEWS OF THE RIGHT KNEE 02/25/2022 10:32 am COMPARISON: CT right knee 02/10/2022 HISTORY: ORDERING SYSTEM PROVIDED HISTORY: Reason for Exam: Status Post Arthroplasty FINDINGS: Postsurgical changes related to total right knee arthroplasty placement. Anterior cutaneous clips are present. Hardware appears intact, alignment maintained. No acute bony fracture identified. Subcutaneous emphysema and retropatellar gas are postsurgical. Femoropopliteal atherosclerosis. IMPRESSION: Postsurgical changes related to total right knee arthroplasty. No evidence of hardware failure. Interpreted by: Gelacio Porras Preliminary Report By: Gelacio Porras Electronically signed By Gelacio Porras Dictated Date: 02/25/2022 10:38:09 AM Prelim Date: 02/25/2022 10:40:02 AM Sign Date: 02/25/2022 10:40:02 AM Ordering Provider: BRANDON YATES [facility]07-05-2022 Note ORIGINAL EXAMINATION: TWO XRAY VIEWS OF THE RIGHT KNEE 02/25/2022 10:32 am COMPARISON: CT right knee 02/10/2022 HISTORY: ORDERING SYSTEM PROVIDED HISTORY: Reason for Exam: Status Post Arthroplasty FINDINGS: Postsurgical changes related to total right knee arthroplasty placement. Anterior cutaneous clips are present. Hardware appears intact, alignment maintained. No acute bony fracture identified. Subcutaneous emphysema and retropatellar gas are postsurgical. Femoropopliteal atherosclerosis. IMPRESSION: Postsurgical changes related to total right knee arthroplasty. No evidence of hardware failure. Interpreted by: Gelacio Porras Preliminary Report By: Gelacio Porras Electronically signed By Gelacio Porras Dictated Date: 02/25/2022 10:38:09 AM Prelim Date: 02/25/2022 10:40:02 AM Sign Date: 02/25/2022 10:40:02 AM Ordering Provider: [facility]07-05-2022 Anesthesiology Consult note Patient: CHINYERE KRISHNA Age: 86 years Sex: Female : 1935 Associated Diagnoses: None Author: JOSE KAUR Preoperative Information Time of last food or liquid consumption: 02/25/2022 00:00:00 Anesthesia history Patient's history: negative. Family's history: negative. Review of Systems Ear/Nose/Mouth/Throat: Negative. Respiratory: Negative. Cardiovascular: htn. Gastrointestinal: Negative. Genitourinary: ckd 3. Endocrine: hypothyroid. Musculoskeletal: OA. Integumentary: Negative. Neurologic: TREMOR, RLS. Health Status Allergies: Allergic Reactions (Selected) Severity Not Documented Genteal ophthalmic ointment- Burning. Sulfa drugs- Rash., Allergies (2) ActiveReaction Genteal ophthalmic ointmentBurning sulfa drugsRash Current medications: (Selected) Inpatient Medications Ordered Betadine 10% topical solution: 17.5 mL, mL/hr, Topical (INT), PREOP pharm Decadron: 10 mg, 1 mL, IV Push, AsDirected Kefzol: 2 gram(s), 200 mL/hr, IV Piggyback, PREOP pharm LR 1000 mL: 20 mL/hr, Intravenous, Stop: 02/26/22 17:59:00 EDT Naropin 25 mg + EPINEPHrine 1 mg/mL injectable solution 0.3 mg + morphine 2.5 m mg, 5 mL, 0 mL/hr, Other, PREOP pharm Naropin 25 mg + EPINEPHrine 1 mg/mL injectable solution 0.3 mg + morphine 2.5 m mg, 5 mL, 0 mL/hr, Other, PREOP pharm tranexamic acid 1 g / 100 mL 0.7% NaCl PMX: 1 gram(s), 100 mL, 300 mL/hr, IV Piggyback, AsDirected tranexamic acid 1 g / 100 mL 0.7% NaCl PMX: 1 gram(s), 100 mL, 300 mL/hr, IV Piggyback, AsDirected Documented Medications Documented Chondroitin-Glucosamine 400 mg-500 mg oral capsule: 0 Refill(s) GenTeal ophthalmic solution: 1 drop(s), Ophthalmic, BID, PRN: for dry eyes, 30 mL, 0 Refill(s) Tylenol Extra Strength 500 mg oral tablet: 500 mg, 1 tab(s), Oral, q4h, PRN: as needed for fever, 60 tab(s), 0 Refill(s) Vitamin D3: 100 mcg, 1 tab(s), Oral, Daily, 90 tab(s), 0 Refill(s) aspirin 81 mg oral delayed release tablet: 81 mg, 1 tab(s), Oral, Daily, 0 Refill(s) calcium-vitamin D 250 mg-12.5 mcg (500 intl units) oral tablet, chewable: 2 tab(s), Chewed, BIDM, 70 tab(s), 0 Refill(s) clonazePAM 0.5 mg oral tablet: TAKE 1/2 TO 1 (ONE-HALF TO ONE) TABLET BY MOUTH AT MIDNIGHT ipratropium 42 mcg/inh (0.06%) nasal spray: 2 spray(s), Nasal, TID, 15 mL, 0 Refill(s) levothyroxine 50 mcg (0.05 mg) oral tablet: 50 mcg, 1 tab(s), Oral, qDayAC, 0 Refill(s) losartan 50 mg oral tablet: 50 mg, 1 tab(s), Oral, qDay, 30 tab(s), 0 Refill(s) omeprazole 20 mg oral delayed release capsule: 20 mg, 1 cap(s), Oral, qDay, 0 Refill(s) pregabalin 25 mg oral capsule: 25 mg, 1 cap(s), Oral, qDay, 0 Refill(s) rOPINIRole 0.5 mg oral tablet: TAKE 1 TABLET BY MOUTH AT LUNCH, AND 1 TAB AT DINNER, 1 TAB AT BEDTIME, AND 1 TAB AT MIDNIGHT NEEDED simvastatin 40 mg oral tablet: 40 mg, 1 tab(s), Oral, qHS, 0 Refill(s) turmeric 1000 mg oral capsule: 1,000 mg, 1 cap(s), Oral, BID, 0 Refill(s), Medications (8) Active Scheduled: (7) ceFAZolin 2 gram(s), IV Piggyback, PREOP pharm dexamethasone 10 mg/mL (1mL) SDV 10 mg 1 mL, IV Push, AsDirected povidone iodine topical 17.5 mL, Topical (INT), PREOP pharm ropivacaine 25 mg + epinephrine 0.3 mg + morphine 2.5 mg 25 mg 5 mL, Other, PREOP pharm ropivacaine 25 mg + epinephrine 0.3 mg + morphine 2.5 mg 25 mg 5 mL, Other, PREOP pharm tranexamic acid PMX 1 gram(s) 100 mL, IV Piggyback, AsDirected tranexamic acid PMX 1 gram(s) 100 mL, IV Piggyback, AsDirected Continuous: (1) Lactated Ringers 1000 mL 1,000 mL, Intravenous, 20 mL/hr PRN: (0) Problem list: Active Problems (8) Chronic kidney disease (CKD), stage III (moderate) Essential tremor Hiatal hernia Hyperlipidemia Hypertension Hypothyroidism Osteoarthritis RLS (restless legs syndrome) Histories Past Medical History: No active or resolved past medical history items have been selected or recorded. Family History: Heart attack Mother Kidney disease Sister Alzheimer's disease Sister Procedure history: Cataract extraction ([id number]). Comments: 02/10/2022 11:49 ERIK Shetty Trigger finger ([id number]). Hysterectomy ([id number]). Appendectomy ([id number]). Breast biopsy and related procedures ([id number]). Comments: 02/10/2022 11:49 ERIK Shetty LEFT Social History Social & Psychosocial Habits Alcohol 02/10/2022 Use: Never Substance Abuse 02/10/2022 Use: Never Tobacco 02/10/2022 Tobacco Use: Never (less than 100 in l Home/Environment 02/10/2022 Domestic Concerns None Lives In Single level home Spouse Name MAGDI Marital Status of Patient if Patient Independent Adult: Nutrition/Health 02/10/2022 Type of diet: LOW CARB/SUGAR, Regular Eating Difficulties None . Physical Examination Vital Signs 02/25/2022 8:40 EDT Heart Rate Monitored 59 bpm bpm Respiratory Rate 0 br/min br/min Systolic Blood Pressure NBP 69 mmHg mmHg Diastolic Blood Pressure NBP 26 mmHg mmHg 02/25/2022 8:35 EDT Heart Rate Monitored 60 bpm bpm Respiratory Rate 0 br/min br/min Systolic Blood Pressure NBP 71 mmHg mmHg Diastolic Blood Pressure NBP 34 mmHg mmHg 02/25/2022 8:30 EDT Heart Rate Monitored 60 bpm bpm Respiratory Rate 0 br/min br/min Systolic Blood Pressure NBP 74 mmHg mmHg Diastolic Blood Pressure NBP 20 mmHg mmHg 02/25/2022 8:25 EDT Heart Rate Monitored 76 bpm bpm Respiratory Rate 0 br/min br/min Systolic Blood Pressure NBP 133 mmHg mmHg Diastolic Blood Pressure NBP 41 mmHg mmHg 02/25/2022 8:20 EDT Respiratory Rate 0 br/min br/min Systolic Blood Pressure NBP 170 mmHg mmHg Diastolic Blood Pressure NBP 63 mmHg mmHg 02/25/2022 8:18 EDT Systolic Blood Pressure NBP 176 mmHg mmHg Diastolic Blood Pressure NBP 64 mmHg mmHg 02/25/2022 6:52 EDT Temperature Temporal Artery 36.4 DegC Peripheral Pulse Rate 79 bpm Respiratory Rate 16 br/min Systolic Blood Pressure NBP 167 mmHg >HHI Diastolic Blood Pressure NBP 68 mmHg Vital Signs(last 24 hrs) Last Charted Heart Rate [id number] bpm (FEB 25 08:40) Resp Rate 0 br/min (FEB 25 08:40) SBP69 mmHg (FEB 25 08:40) DBP26 mmHg (FEB 25 08:40) Measurements from flowsheet : Measurements 02/25/2022 6:52 EDT Height 156 cm Admission Weight 46 kg Theodore Body Weight 48.76 kg Admission Body Mass Index 18.9 m2 Pain assessment: Pain Assessment 02/25/2022 6:52 EDT Primary Pain Location Knee Primary Pain Laterality Right Primary Pain Intensity 8 Pain Scale Type 0-10 Pain scale . General: Alert and oriented. Airway: Normal temporomandibular joint mobility. Mallampati classification: II (soft palate, fauces, uvula visible). Head: Normocephalic. Dentition Evaluation: Own teeth. Neck: Supple. Respiratory: Lungs are clear to auscultation. Cardiovascular: Normal rate. Heart Sounds: Normal. Gastrointestinal: Soft. Musculoskeletal Normal range of motion. Integumentary: Intact. Neurologic: Alert, Oriented. Review / Management Results review: No qualifying data available , Lab results 02/25/2022 8:46 EDT SN - CTm - Surgery Start 02/25/2022 8:46 02/25/2022 8:45 EDT acetaminophen Begin Bag 100 mL mg 02/25/2022 8:40 EDT Heart Rate Monitored 59 bpm bpm Respiratory Rate 0 br/min br/min Systolic Blood Pressure NBP 69 mmHg mmHg Diastolic Blood Pressure NBP 26 mmHg mmHg Oxygen Saturation 100 % % 02/25/2022 8:38 EDT SN - SP - Prep Agents Chloraprep SN - SP - HR - Method N/A 02/25/2022 8:35 EDT Heart Rate Monitored 60 bpm bpm Respiratory Rate 0 br/min br/min Systolic Blood Pressure NBP 71 mmHg mmHg Diastolic Blood Pressure NBP 34 mmHg mmHg Oxygen Saturation 100 % % dexamethasone 10 mg mg 02/25/2022 8:30 EDT Heart Rate Monitored 60 bpm bpm Respiratory Rate 0 br/min br/min Systolic Blood Pressure NBP 74 mmHg mmHg Diastolic Blood Pressure NBP 20 mmHg mmHg Oxygen Saturation 93.9 % % 02/25/2022 8:25 EDT Heart Rate Monitored 76 bpm bpm Respiratory Rate 0 br/min br/min Systolic Blood Pressure NBP 133 mmHg mmHg Diastolic Blood Pressure NBP 41 mmHg mmHg Oxygen Saturation 98 % % 02/25/2022 8:22 EDT SN - DRS - Site and Details RIGHT KNEE AND SHEETS 02/25/2022 8:21 EDT bupivacaine 1.6 mL mL 02/25/2022 8:20 EDT SN - PP - Body Position Supine Standard Intra-op 02/25/2022 8:20 EDT Respiratory Rate 0 br/min br/min Systolic Blood Pressure NBP 170 mmHg mmHg Diastolic Blood Pressure NBP 63 mmHg mmHg 02/25/2022 8:18 EDT Systolic Blood Pressure NBP 176 mmHg mmHg Diastolic Blood Pressure NBP 64 mmHg mmHg 02/25/2022 8:16 EDT SN - CTm - Anesthesia Start Time Anesthesia Start 02/25/2022 7:56 EDT Patient Information Note PATIENT TOLERATED PROCEDURE WELL. 02/25/2022 7:52 EDT SN - HI - Route of Administration Local SN - HI - Route of Administration Local SN - HI - By (Single) SN - HI - By (Single) SN - HI - By (Single) SN - HI - By (Single) 02/25/2022 7:42 EDT SN - Cul - Culture Type No Specimen per Surgeon 02/25/2022 7:41 EDT SN - Implant - Implant/Explant Implant 02/25/2022 7:39 EDT Time Out Procedure Verified Time Out Procedure Site Verified Yes Time Out Procedure Site Marked Yes Time Out Correct Patient Position Yes Consent Form Signed Yes Bedside Procedure Nerve Block Provider #1 Bedside Time Out JOSE KAUR APRN-ZINC PLATE CUTTER Provider #2 Bedside Time Out Jayna Diaz RN 02/25/2022 7:35 EDT Anesthesia Consent Signed Yes 02/25/2022 7:33 EDT citric acid-sodium citrate Not Done: Not Appropriate at this Time (Not Done) famotidine Not Done: Not Appropriate at this Time (Not Done) 02/25/2022 7:29 EDT SN - Proc - Actual Procedure ROBOTIC ASSISTED RIGHT TOTAL KNEE ARTHROPLASTY 02/25/2022 7:29 EDT SN - Irl - Irrigant Normal Saline SN - Irl - Irrigant Normal Saline SN - Irl - Irrigant Sterile Water SN - IrI - Volume In 500 mL SN - IrI - Volume In 450 mL SN - Irl - Additive BETADINE (POVIDONE IODINE) SOLUT SN - Irl - Additive IRRIGATION CHG 0.05% IRRISEPT 12/CA [id number] SN - IrI - Volume Out 500 mL SN - IrI - Volume Out 450 mL 02/25/2022 7:29 EDT SN - PTCare - Anti-thromboembolism Vaishnavi Elastic Compression Stockings SN - PTCare - Anti-thromboembolism Vaishnavi Sequential Compression Device (SCD) 02/25/2022 7:28 EDT SN - Assess - LOC Alert, Awake SN - Assess - Orientation Oriented X 3 SN - Assess - Post-op Skin Integrity Intact/Dry 02/25/2022 7:28 EDT SN - GCD - Post-operative Diagnosis UNILATERAL PRIMARY OSTEOARTHRITIS RIGHT KNEE SN - GCD - Case Level Level 5 02/25/2022 7:27 EDT SN - CAt - Case Attendee SN - CAt - Case Attendee SN - CAt - Case Attendee SN - CAt - Case Attendee SN - CAt - Case Attendee SN - CAt - Case Attendee SN - CAt - Case Attendee SN - CAt - Case Attendee SN - CAt - Case Attendee SN - CAt - Case Attendee SN - CAt - Case Attendee SN - CAt - Case Attendee SN - CAt - Case Attendee SN - CAt - Case Attendee SN - CAt - Case Attendee SN - CAt - Case Attendee SN - CAt - Role Performed Primary Surgeon SN - CAt - Role Performed ZINC PLATE CUTTER SN - CAt - Role Performed Coat Operator 1 SN - CAt - Role Performed Scrub 1 SN - CAt - Role Performed Sanding Machine Tender Automatic 1 SN - CAt - Role Performed Physician Db2 Developer SN - CAt - Role Performed Research And Development Director SN - CAt - Role Performed Research And Development Director 02/25/2022 7:23 EDT Lactated Ringers Injection 1,000 mL mL 02/25/2022 7:21 EDT SN - Preop - CTm Pt in SDS Room 02/25/2022 6:50 SN - Preop - CTm Pt Ready for OR/Proced 02/25/2022 7:21 02/25/2022 7:21 EDT Individuals Taught Patient, Spouse Learning Readiness Willing to learn Barriers to Learning None evident Teaching Method Explanation Preferred Written Language [place] Family/Caregiver Prefer Written Language [place]an Preferred Spoken Language [place] Family/Caregiver Prefer Spoken Language [place]an Pre Procedure/Surgery Education Appropriate expectations Procedure/Surgical Teaching Evaluation Verbalizes/Nonverbally indicates understanding Ed-Tubes/Drains/IV's Verbalizes/Nonverbally indicates understanding 02/25/2022 7:20 EDT IV Present Present Preop Nasal Swab Povidone-Iodine 02/25/2022 7:12 EDT Blood Glucose, Capillary 95 mg/dL 02/25/2022 7:09 EDT Wrist Left 02/25/2022 20 gauge Peripheral IV Activity: Insert new site Peripheral IV Dressing Condition: Clean, Dry, Intact Peripheral IV Dressing Activity: Applied, Transparent dressing Peripheral IV Line Status/Patency: Continuous infusion Peripheral IV Line Care: Secured with tape Peripheral IV Site Condition: No complications Peripheral IV Equipment: Extension set, PRN Adaptor Peripheral IV Number of Attempts: 1 02/25/2022 6:59 EDT Privacy Restrictions Requested None Safety Brochure Information Reviewed Yes Corazon Llamas Video Viewed No Teaching Evaluation Verbalizes/Nonverbally indicates understanding Belongings At Bedside Glasses, Pants, Shoes, T-shirt, Undergarments, Walker Personal Home Medications Received Received from patient Admission Note-Nursing Same Day Patient History (Modified) 02/25/2022 6:52 EDT Height 156 cm Admission Weight 46 kg Theodore Body Weight 48.76 kg Admission Body Mass Index 18.9 m2 Temperature Temporal Artery 36.4 DegC Peripheral Pulse Rate 79 bpm Respiratory Rate 16 br/min Systolic Blood Pressure NBP 167 mmHg >HHI Diastolic Blood Pressure NBP 68 mmHg Primary Pain Location Knee Primary Pain Laterality Right Primary Pain Intensity 8 Pain Scale Type 0-10 Pain scale Nail Bed Color [place] Capillary Refill < 2 seconds Dorsalis Pedis Pulse, Left 2+ Normal Dorsalis Pedis Pulse, Right 2+ Normal Radial Pulse, Left 2+ Normal Radial Pulse, Right 2+ Normal Edema Generalized None All Lobes Breath Sounds Clear Oxygen Therapy Room air Oxygen Saturation 99 % Abdomen Description Non-distended, Soft Abdomen Palpation Non-Tender Bowel Sounds All Quadrants Present Urinary Elimination Voiding, no difficulties Skin Temperature Warm Skin Description [place], Dry Skin Integrity Intact Neurological Symptoms Patient denies Extremity Movement Equal Characteristics of Speech Clear Level of Consciousness Alert Strength All Extremities Strong Tone All Extremities Normal Sensation All Extremities Intact Affect/Behavior Appropriate, Calm, Cooperative Orientation Oriented x 4 Allergies Yes Consent Form Signed Yes Patient Dressed In Hospital gown Pre-op Preparation Glasses removed CHG Preoperative Wash/Wipe Night before procedure, Day of procedure CHG Skin Prep Completed for Eligible Surgery History & Physical Update On Chart Yes History & Physical On Chart Yes Activity Status ADL Awake, Resting NPO Status Maintained, More than 8 hours Standard Safety ID band on, Allergy Band on, Call device within reach, Bed in low position, Wheels locked, Upper/Half-Length side-rails up Allergy Band on and Verified Yes Patient ID Band on and Verified Yes Implants Verified Yes Pacemaker/AICD Verified Yes Blood Consent Signed Yes Last Fluid Intake 02/24/2022 17:00 Last Food Intake 02/24/2022 17:00 Last Void 02/25/2022 6:45 Patient Cleared for Surgery By JEFFY FIELDS MD . Assessment and Plan [place] [employer]esthesi[employer] (ASA) physical status classification: Class III. Anesthetic Preoperative Plan Premedication: intravenous. Anesthetic technique: Spinal. Induction: intravenously. Maintenance airway: 40% FM. Regional: Adductor Canal Block. Postoperative pain management: Per surgeon. Informed consent: signed by patient. Digitally Signed by JOSE KAUR on 02/25/2022 08:50 AM [facility]06-16-2022 History of Present illness Narrative * Tete Sal APRN.CIVIL ENGINEERING PROJECT DESIGNER - 02/06/2022 9:00 AM EDT Images from the original note were not included. [facility] [place] Follow-up Visit Follow-up note February 06, 2022 HPI: Ms. Vasile Alberts presents today for a follow-up visit. Per her previous visit with Dr. Clark on 11/01/21: ASSESSMENT/PLAN: 1. Restless legs syndrome - ICD9: 333.94, ICD10: G25.81 (primary diagnosis) Overall symptoms well controlled except for 2 nights of breakthrough symptoms since last visit. I am concerned about the amount of sedating medications patient is taking. States feels Lyrica helps but makes her feels somewhat off balance. Will try to gradually decrease meds without exacerbating RLS. Plan as follows: Lyrica 25mg - take 1 capsule at midnight and 1 capsule Noon. Ropinirole 0.5mg - take 1 tablet Noon, 4PM, 8PM; 1/2 tablet at midnight. Klonopin 0.5mg - take 1 tablet at midnight. If stable next visit, would then try to perhaps reduce does of Klonopin to 1/2 tab or hold the MN dose of Lyrica. Pt not wanting to stop Requip and should be noted, when attempts made in the past, RLS was out of control even when trying alternative meds to control symptoms. 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 No changes in meds as above. 3. Tremor - ICD9: 781.0, ICD10: R25.1 Not noted on exam. No s/s of PD on exam. Will continue to monitor. Would not recommend treating based on exam findings. She states that she is currently doing really well; quite good. States she went a few weeks without a single jerk then three nights in a row had jerking overnight but then this resolved again. She states that current medication regimen works well. Currently taking Lyrica at bedtime only. At midnight she takes 1/2 requip and 1/2 tablet of Klonopin. Naps off and on around 4am then wakes around 0530. Goes to sleep at 10pm. Will nap during the day. Unsure how long naps are. She feels like balance has improved at this time. Feels this is less related to the Lyrica but rather the reduction in Klonopin. Now only taking the 1/2 tablet instead. She will still have strange dreams but these are not often. Not acting out dreams. Does not think she has yelled out in her sleep since last OV. States tremor has worsened after COVID boosters. No hx of COVID dx. Tremor does not occur at rest. Will note it when eating or doing her hair or holding a watering can. Denies falls. Will be having knee replacement on February 25. PAST MEDICAL HISTORY Diagnosis Date Anemia of chronic renal failure, stage 2 (mild) 05/19/2006 Arthritis left foot and right thumb Esophageal reflux Essential hypertension, benign Essential tremor GERD (gastroesophageal reflux disease) Hiatal hernia 08/25/2018 Other and unspecified hyperlipidemia Senile osteoporosis Unspecified hypothyroidism PAST SURGICAL HISTORY Procedure Laterality Date ADENOIDECTOMY PRIMARY <AGE 14 Adenoidectomy APPENDECTOMY open COLONOSCOPY 11/28/2016 [place]- diverticulosis. ESOPHAGOGASTRODUODENOSCOPY TRANSORAL DIAGNOSTIC 08/25/2018 EGD NEUROPLASTY &/TRANSPOS MEDIAN NRV CARPAL TUNNE Carpal tunnel decomp- left PAST SURGICAL HISTORY OF salivary gland removed- chronic infection PAST SURGICAL HISTORY OF 06-03-12 right trigger finger releases 1-4 PAST SURGICAL HISTORY OF 06-23-14 left ring trigger finger release RHINP PRIM LAT&ALAR CRTLGS&/ELVTN NASAL TI Rhinoplasty RHYTIDECTOMY NECK W/PLATYSMAL TIGHTENING eye brow lift TONSILLECTOMY PRIMARY/SECONDARY <AGE 14 Tonsillectomy TOTAL ABDOMINAL HYSTERECT W/WO RMVL TUBE OVARY Hysterectomy, DHIRAJ Current Outpatient Medications on File Prior to Visit Medication Sig losartan (COZAAR) 50 mg tablet Take 1 tablet by mouth once daily. levothyroxine (SYNTHROID) 50 mcg tablet Take 1 tablet by mouth once daily 6 out of 7 days per week. Cholecalciferol, Vitamin D3, (VITAMIN D) 25 mcg (1,000 unit) cap Take 1,000 Units by mouth once daily. rOPINIRole (REQUIP) 0.5 mg tablet TAKE 1 TAB AT LUNCH, 1 AT DINNER, 1 AT BEDTIME, 1/2 AT MIDNIGHT NEEDED (Patient taking differently: TAKE 1 TAB AT LUNCH, 1 AT DINNER, 1 1/2 AT BEDTIME ) clonazePAM (KLONOPIN) 0.5 mg tablet TAKE 1/2 TO 1 TABLET AT MIDNIGHT pregabalin (LYRICA) 25 mg capsule Take 1 capsule at noon and 1 capsule at midnight. (Patient takingdifferently: Take 25 mg by mouth once daily. Take 1 capsule at noon and 1 capsule at midnight.) simvastatin (ZOCOR) 40 mg tablet Take 1 tablet by mouth daily at bedtime. omeprazole (PRILOSEC) 20 mg capsule Take one tablet by mouth q day gluc fernandez/chondro fernandez A/vit C/Mn (GLUCOSAMINE 1500 COMPLEX ORAL) Take by mouth. turmeric (CURCUMIN MISC) calcium carbonate/vitamin D3 (CALCIUM WITH VITAMIN D ORAL) Take 1 tablet by mouth once daily. IPRATROPIUM BROMIDE NASAL Use 1 Leburn in the nose twice daily. hypromellose(GENTEAL MODERATE 0.3 % EYE DROPS) To left eye ASPIRIN 81 MG TAB Take one (1) tablet daily . No current facility-administered medications on file prior to visit. Social History Tobacco Use Smoking status: Never Smoker Smokeless tobacco: Never Used Vaping Use Vaping Use: Never used Substance Use Topics Alcohol use: No Drug use: No ALLERGIES Allergen Reactions Genteal Eye Ointmen* Itching Itching,redness, and watery eyes Asa [Salicylates] ringing in ears Cymbalta [Duloxetin* Other: See Comments Caused nightmares Flonase [Fluticason* Other: See Comments gets jittery Lodine [Etodolac] stomach ache Sulfa (Sulfonamide * Hives Review of Systems: Cardiopulmonary: denies chest pain, palpitations, or skipped heart beats Respiratory: denies shortness of breath GI/: denies recent nausea, vomiting, diarrhea, constipation, incontinence Musculoskeletal: denies weakness, + joint ache/pain Back/spine: denies + low back, mid back, or cervical pains Neuro: denies tremors, loss of feeling, dizziness, seizure, blackout, paresthesia, facial paresthesia, facial weakness, difficulty in speech, slurring of words, dysarthria, dysphagia, + headache (occasional), vision changes, loss of hearing Physical Exam: 02/06/22 0905 BP: 132/68 Pulse: 79 Resp: 18 Temp: 36.3 C (97.4 F) SpO2: 98% Weight: 45.8 kg (100 lb 14.4 oz) Patient is alert and in no distress. Dress is appropriate. Mood is appropriate Breathing appears regular and unstressed Neurologic examination: Cognitively intact. No deficits. No formal MMSE performed. CN: Pupils equal and reactive to light, extraocular movements intact with no nystagmus, face is symmetric with no facial droop, facial sensation intact bilaterally to light touch. V1-3, hearing decreased to left ear, symmetric evaluation of the soft palate, tongue is midline with no deviation, shoulder shrug is symmetric. Motor exam shows 5/5 strength symmetric through the upper and lower extremities in all groups tested. Sensory intact to light touch and temperature in all extremities. Deep tendon reflexes are symmetric at the biceps, brachioradialis, triceps, patella, and achilles bilaterally. Coordination: No dysmetria on finger to nose. R tremor with arms outstretched, not present at rest.No drift seen. Normal station and stride. Good arm swing and body turn; rises from chair well. Labs/studies: Component Latest Ref Rng & Units 01/16/2022 01/28/2022 WBC 3.70 - 11.00 k/uL 4.25 RBC 3.90 - 5.20 m/uL 4.52 Hemoglobin 11.5 - 15.5 g/dL 13.9 Hematocrit 36.0 - 46.0 % 42.5 MCV 80.0 - 100.0 fL 94.0 MCH 26.0 - 34.0 pg 30.8 MCHC 30.5 - 36.0 g/dL 32.7 RDW-CV 11.5 - 15.0 % 12.7 Platelet Count 150 - 400 k/uL 182 MPV 9.0 - 12.7 fL 9.8 Neut% % 70.6 Abs Neut (ANC) 1.45 - 7.50 k/uL 3.00 Lymph% % 16.2 Abs Lymph 1.00 - 4.00 k/uL 0.69 (L) O'Brien% % 8.5 Abs O'Brien <0.87 k/uL 0.36 Eosin% % 3.3 Abs Eosin <0.46 k/uL 0.14 Baso% % 1.2 Abs Baso <0.11 k/uL 0.05 Immature Gran % % 0.2 IMMATURE GRANS (ABS) <0.10 k/uL <0.03 NRBC /100 WBC 0.0 Absolute nRBC <0.01 k/uL <0.01 DTYPE Auto Glucose 74 - 99 mg/dL 114 (H) BUN 7 - 21 mg/dL 25 (H) Creatinine 0.58 - 0.96 mg/dL 1.10 (H) Sodium 136 - 144 mmol/L 136 Potassium 3.7 - 5.1 mmol/L 3.9 Chloride 97 - 105 mmol/L 99 CO2 22 - 30 mmol/L 26 Anion Gap 9 - 18 mmol/L 11 Calcium 8.5 - 10.2 mg/dL 10.1 eGFR >=60 mL/min/1.73m 50 (L) Iron 41 - 186 ug/dL 48 TIBC 232 - 386 ug/dL 304 Transferrin Saturation 15 - 57 % 16 Magnesium 1.7 - 2.3 mg/dL 2.1 TSH 0.270 - 4.200 mIU/L 1.770 Assessment/Plan: G25.81 Restless legs syndrome (primary encounter diagnosis) Comment: Patient reports symptoms have remained well controlled with exception of two or three consecutive nights of breakthrough symptoms which have since resolved. Since time of previous appointment she has further reduced dose of both Lyrica and Klonopin and is currently taking medication as noted below: Lyrica 25mg- taking one capsule QHS. Ropinirole 0.5mg- taking one tablet at noon and 4PM, 1 1/2 tablets at 8PM and 1/2 tablet at midnight. Klonopin 0.5mg- taking 1/2 tablet at midnight. She reports improvement in balance with adjustment in medications and no SE with medications. She feels that current medication regimen is working well and therefore will continue with above times and doses. No RF needed at today's appointment. 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 Continue medications as above . R25.1 Tremor Comment: Tremor remains stable. Not present at rest. No tremor noted on exam. No other neurologicalfindings on exam that would indicate PD. Will continue to monitor for any changes. Tete Sal APRN.CIVIL ENGINEERING PROJECT DESIGNER I spent a total of 30 minutes on the date of the service which included preparing to see the patient, [id number] patient care, completing clinical documentation, obtaining and/or reviewing separately obtained history, performing a medically appropriate examination and counseling and educating the patient/family/caregiver. PDMP website checked and validated. All prescriptions have been APPROPRIATELY filled. No suspiciousactivity was identified. February 06, 2022 Tete aSl APRN.CIVIL ENGINEERING PROJECT DESIGNER documented in this [facility] Miscellaneous Notes* Addendum Note - Jeffy Fields MD - 01/31/2022 11:12 AM EDT Addended by: JEFFY FIELDS on: 01/31/2022 11:12 AM Modules accepted: Orders documented in this encounterUpper [facility]06-07-2022 Miscellaneous Notes* Telephone Encounter - Leandro Martines LPN - 01/28/2022 2:07 PM EDT Pt notified. She verbalized understanding. Leandro Martines LPN * Telephone Encounter - Lorraine Zamora PA-C - 01/28/2022 1:00 PM EDT BP acceptable Recheck next OV Continue current medicaiton Thanks, Rip Zamora PA-C * Telephone Encounter - Janet Mosqueda Ma - 01/28/2022 10:40 AM EDT BP Chas Serial, Digital BP Readings, Taken 2 Minutes Apart, Average Readings: 130/68 Pulse: 76 1. 153/69 85 2. 134/69 77 3. 133/70 80 4. 128/69 77 5. 131/66 78 6. 127/68 76 Reason for blood pressure check - Last BP elevated Patient is: Taking medication as prescribed Yes Took medication today Yes Experiencing side effects No Pt is rechecking BMP today due to low sodium. She was advised to cut back from 8 glasses of water to 6. Besides that she will drink some herbal tea. She also follows a low sodium diet. She c/o leg cramping as well. Pt has been identified by name and birthdate: Yes Pt is alert and oriented. Allergies reviewed: Yes Latex allergy: no. Medication - prescribed and OTC reviewed and updated: Yes Do you need any prescription refills prior to your next visit: Yes Health Maintenance: Reviewed and not up to date and provider notified. Pt has been notified that she will be contacted after provider reviews her blood pressure readings. Janet Mosqueda Ma documented in this encounterUpper [facility]06-07-2022 History of Present illness Narrative* Janet Mosqueda Ma - 01/28/2022 9:48 AM EDT BP Chas Serial, Digital BP Readings, Taken 2 Minutes Apart, Average Readings: 130/68 Pulse: 76 1. 153/69 85 2. 134/69 77 3. 133/70 80 4. 128/69 77 5. 131/66 78 6. 127/68 76 Reason for blood pressure check - Last BP elevated Patient is: Taking medication as prescribed Yes Took medication today Yes Experiencing side effects No Pt has been identified by name and birthdate: Yes Pt is alert and oriented. Allergies reviewed: Yes Latex allergy: no. Medication - prescribed and OTC reviewed and updated: Yes Do you need any prescription refills prior to your next visit: Yes Health Maintenance: Reviewed and not up to date and provider notified. Pt has been notified that she will be contacted after provider reviews her blood pressure readings. Janet Mosqueda Ma documented in this encounterUpper [facility]06-01-2022 Miscellaneous Notes* Telephone Encounter - Veronika Nguyen RN - 01/22/2022 1:39 PM EDT Patient returned call and given provider's message below and patient verbalized understanding. Stacie Nguyen RN * Telephone Encounter - Elvia Mcrae LPN - 01/22/2022 1:11 PM EDT Left message for patient to call office. * Telephone Encounter - Jeffy Fields MD - 01/22/2022 12:44 PM EDT Decrease amount of plain water to no more than 6 big glasses a day. Can drink some non plain water drinks like gatoraid etc if she desires on top. Recheck bmp early next week before doing a large work up for her sodium. * Telephone Encounter - Leandro Martines LPN - 01/22/2022 10:05 AM EDT TC to pt, notified of results/provider response. She states she drinks 8 glasses of water a day andshe does not take any diuretics. Pt denies NVD. Pt asking for refill of levothyroxine. Rx pending. Please review and advise. Leandro Martines LPN * Telephone Encounter - Jeffy Fields MD - 01/17/2022 8:07 AM EDT Her sodium is low which might account for some of her issues. Is she drinking a lot of plain water? Any vomiting or diarrhea. Make sure not using any diuretics I am not aware of. Let me know documented in this encounterUpper [facility]05-26-2022 History of Present illness Narrative* Jeffy Fields MD - 01/16/2022 2:38 PM EDT Patient presents with: Right Hip Pain Pre-Op Exam HPI: Patient presents today for office visit for preop appt. Nursing Notes: Elvia Mcrae DIONNE 01/16/2022 2:19 PM Signed Patient scheduled for pre op exam comes in to office with concerns of right hip pain that started on 10/25/21. Feels that this should be checked out first before having knee surgery. Hurts into her back and down leg. Patient presents for preop clearance. Upcoming surgery for: robotic assisted right total knee. Hx of previous anesthesia problems: No. Family hx of anesthesia problems: No. Current signs of infection: No. Chest pain: No. Shortness of breath: No. Known sleep apnea: No. Hx of clotting issues: No. Current bleeding or bruising: No. Scheduled @ [facility] for pre op exam on 02/03. Pre op exam at [facility] on 02/10. Last hba1c on 10/29 was 5.9 Last tsh was stable. Still seeing Dr. Harper. Home bp has good. Started having pain on 10/25. Sometimes in the back. Is mostly over the hip joint itself. Can go into the groin. No swelling or redness or warmth. Is painful to lay on it. She did not say anything to ortho about it when she saw them. MEDICATIONS: Current Outpatient Medications Medication Sig Cholecalciferol, Vitamin D3, (VITAMIN D) 25 mcg (1,000 unit) cap Take 1,000 Units by mouth once daily. rOPINIRole (REQUIP) 0.5 mg tablet TAKE 1 TAB AT LUNCH, 1 AT DINNER, 1 AT BEDTIME, 1/2 AT MIDNIGHT NEEDED (Patient taking differently: TAKE 1 TAB AT LUNCH, 1 AT DINNER, 1 1/2 AT BEDTIME ) clonazePAM (KLONOPIN) 0.5 mg tablet TAKE 1/2 TO 1 TABLET AT MIDNIGHT pregabalin (LYRICA) 25 mg capsule Take 1 capsule at noon and 1 capsule at midnight. (Patient takingdifferently: Take 25 mg by mouth once daily. Take 1 capsule at noon and 1 capsule at midnight.) simvastatin (ZOCOR) 40 mg tablet Take 1 tablet by mouth daily at bedtime. levothyroxine (SYNTHROID) 50 mcg tablet Take 1 tablet by mouth once daily 6 out of 7 days per week. losartan (COZAAR) 50 mg tablet Take 1 tablet by mouth once daily. omeprazole (PRILOSEC) 20 mg capsule Take one tablet by mouth q day gluc fernandez/chondro fernandez A/vit C/Mn (GLUCOSAMINE 1500 COMPLEX ORAL) Take by mouth. turmeric (CURCUMIN MISC) calcium carbonate/vitamin D3 (CALCIUM WITH VITAMIN D ORAL) Take 1 tablet by mouth once daily. IPRATROPIUM BROMIDE NASAL Use 1 Leburn in the nose twice daily. ASPIRIN 81 MG TAB Take one (1) tablet daily . hypromellose(GENTEAL MODERATE 0.3 % EYE DROPS) To left eye No current facility-administered medications for this visit. ALLERGIES: ALLERGIES Allergen Reactions Genteal Eye Ointmen* Itching Itching,redness, and watery eyes Asa [Salicylates] ringing in ears Cymbalta [Duloxetin* Other: See Comments Caused nightmares Flonase [Fluticason* Other: See Comments gets jittery Lodine [Etodolac] stomach ache Sulfa (Sulfonamide * Hives PAST MEDICAL HISTORY Diagnosis Date Anemia of chronic renal failure, stage 2 (mild) 05/19/2006 Arthritis left foot and right thumb Esophageal reflux Essential hypertension, benign Essential tremor GERD (gastroesophageal reflux disease) Hiatal hernia 08/25/2018 Other and unspecified hyperlipidemia Senile osteoporosis Unspecified hypothyroidism PAST SURGICAL HISTORY Procedure Laterality Date ADENOIDECTOMY PRIMARY <AGE 14 Adenoidectomy APPENDECTOMY open COLONOSCOPY 11/28/2016 [facility]- diverticulosis. ESOPHAGOGASTRODUODENOSCOPY TRANSORAL DIAGNOSTIC 08/25/2018 EGD NEUROPLASTY &/TRANSPOS MEDIAN NRV CARPAL TUNNE Carpal tunnel decomp- left PAST SURGICAL HISTORY OF salivary gland removed- chronic infection PAST SURGICAL HISTORY OF 06-03-12 right trigger finger releases 1-4 PAST SURGICAL HISTORY OF 06-23-14 left ring trigger finger release RHINP PRIM LAT&ALAR CRTLGS&/ELVTN NASAL TI Rhinoplasty RHYTIDECTOMY NECK W/PLATYSMAL TIGHTENING eye brow lift TONSILLECTOMY PRIMARY/SECONDARY <AGE 14 Tonsillectomy TOTAL ABDOMINAL HYSTERECT W/WO RMVL TUBE OVARY Hysterectomy, DHIRAJ FAMILY HISTORY Problem Relation Age of Onset Heart Mother massive HI, in her 70's other (Other) Father unknown Alzheimer's Disease Sister Cancer Maternal Grandmother GI CANCER Heart Maternal Aunt Diabetes Maternal Aunt Heart Maternal Uncle Social History Tobacco Use Smoking status: Never Smoker Smokeless tobacco: Never Used Vaping Use Vaping Use: Never used Substance Use Topics Alcohol use: No Drug use: No Reviewed current medications, allergies, past medical history, surgical history, family history andsocial history today. REVIEW OF SYSTEMS Having cramps in both labs starting in November. Worse at night. All other reviewed and negative other than HPI. HEALTH MAINTENANCE: Reviewed health maintenance issues today VITALS: BP 152/62 Pulse 76 Wt 48.1 kg (106 lb) SpO2 99% BMI 20.01 kg/m Last 4 Encounter Wt Readings: Date: Wt: 01/16/2022 48.1 kg (106 lb) 11/01/2021 46.3 kg (102 lb) 10/29/2021 49.9 kg (110 lb) 08/08/2021 47.1 kg (103 lb 12.8 oz) PHYSICAL EXAMINATION: General appearance: Well appearing, alert, in no acute distress, well-hydrated, well nourished. Skin: Skin color, texture, turgor normal, no suspicious rashes or lesions Head: Normocephalic, no masses, lesions, tenderness or abnormalities Eyes: Anicteric sclera. Pupils are equally round and reactive to light. Extraocular movements are intact. Lungs: Lungs clear to auscultation. No wheezing, rhonchi, rales Heart: RRR without murmur, gallop, or rubs. No ectopy Abdomen: Normal abdominal exam, Abdomen soft, non-tender. Bowel sounds normal. No masses, organomegaly Extremities: No deformities, edema, skin discoloration, clubbing or cyanosis. Good capillary refill. Musculoskeletal: No joint swelling, deformity, or tenderness Peripheral pulses: Normal Neuro: Negative. Tender over right hip bursa. ASSESSMENT/PLAN: 1. Osteoarthritis of right knee, unspecified osteoarthritis type - ICD9: 715.96, ICD10: M17.11 (primary diagnosis) - medically clear for surgery. Will double check labs today due to cramping. Will follow bp in two weeks. 2. Stage 3 chronic kidney disease, unspecified whether stage 3a or 3b CKD (HCC) - ICD9: 585.3, ICD10: N18.30 - will recheck 3. Anemia of chronic renal failure, stage 2 (mild) - ICD9: 285.21, 585.2, ICD10: N18.2, D63.1 4. Essential hypertension, benign - ICD9: 401.1, ICD10: I10 - suboptimal control - Continue current medication(s) - Goal of BP <130/80 5. Hypothyroidism, unspecified type - ICD9: 244.9, ICD10: E03.9 - check tsh 6. Hip pain - ICD9: 719.45, ICD10: M25.559 - advised her I can xray it but given they are doing surgery, she likely should discuss with her orthopod Jeffy Fields documented in this encounter[facility]05-[facility]22 Nurse Note* Elvia Mcrae LPN - 01/16/2022 2:12 PM EDT Patient scheduled for pre op exam comes in to office with concerns of right hip pain that started on 10/25/21. Feels that this should be checked out first before having knee surgery. Hurts into her back and down leg. Patient presents for preop clearance. Upcoming surgery for: robotic assisted right total knee. Hx of previous anesthesia problems: No. Family hx of anesthesia problems: No. Current signs of infection: No. Chest pain: No. Shortness of breath: No. Known sleep apnea: No. Hx of clotting issues: No. Current bleeding or bruising: No. Scheduled @ [facility] for pre op exam on 02/03. Pre op exam at [facility] on 02/10. documented in this encounterUpper [facility]05-26-2022 Evaluation note* Diagnosis Osteoarthritis of right knee, unspecified osteoarthritis type- Primary Stage 3 chronic kidney disease, unspecified whether stage 3a or 3b CKD (HCC) Anemia of chronic renal failure, stage 2 (mild) Essential hypertension, benign Hypothyroidism, unspecified type Hip pain Pain in joint, pelvic region and thigh Leg cramps Cramp of limb documented in this encounter [facility] Miscellaneous Notes* Telephone Encounter - Angie Leo RN - 12/09/2021 8:35 AM EDT Pt received refill on 11/01/21 with 2 refills She should have current fills at pharmacy Lm to call pharmacy to refill RX * Telephone Encounter - Rosa Rand - 12/09/2021 8:24 AM EDT Pharmacy verified in Epic Patient has been identified by name and date of : Yes Patient aware RX will be sent to pharmacy. No need to notify patient. Patient phones for refill(s): Pending Prescriptions Disp Refills CLONAZEPAM 0.5 MG TABLET 30 tablet 2 Sig: TAKE 1/2 TO 1 TABLET AT MIDNIGHT RENETTA Class: C-IV AUNG: No Date of last office visit : Visit date not found Date of next office visit : Visit date not found Last 2 Encounter Wt Readings: Date: Wt: 11/01/2021 102 lb (46.3 kg) 10/29/2021 110 lb (49.9 kg) Not applicable Please advise. Rosa Rand documented in this encounterUpper [facility]09-08-2021 History of Present illness Narrative* Kera Oshea, RT(R) - 05/01/2021 3:40 PM EDT Radiology Service Progress Note PATIENT NAME: Chinyere Alberts DATE OF SERVICE: May 01, 2021 TIME: 3:37 PM PATIENT IDENTITY VERIFICATION COMPLETED USING TWO (2) IDENTIFIERS: Name and Date of confirmedby patient verbally. FALL SCREENING: Has the patient had 2 falls in the last year or 1 fall with injury or currently using an Ambulatory Assistive Device (Walker, Cane, Wheelchair, Crutches, etc.)? No PATIENT GENDER DATA: Female. status: : No status: NO. PATIENT RELEVANT IMPLANT DATA REVIEWED: Yes RADIOLOGY DEPARTMENT: General X-ray: Exam(s) Completed: Lower Extremity X- Ray(s): Knee, AP / Lat / Tunne / Merchant Bilateral and Wt. Bearing PERIPHERAL IV DATA: Not applicable SIGNED BY: RT Per(R) May 01, 2021 3:37 PM documented in this encounterUpper [facility] Center12-28-2018 History of Past illness Narrative* Problem Noted Date Resolved Date Gastroesophageal reflux disease 08/20/2018 10/07/2018 Overview: Added automatically from request for surgery [id number] Epigastric pain 08/20/2018 04/19/2019 Overview: Added automatically from request for surgery [id number] Hyperlipidemia 10/19/2015 03/31/2017 Trigger ring finger of left hand 06/05/2014 04/19/2019 Perioral dermatitis 03/22/2014 03/31/2017 Postinflammatory skin changes 03/22/2014 Anal burning 03/23/2013 04/20/2015 Irritated//Inflamed Seborrheic Keratosis 012 04/20/2015 Milial cyst 07/06/2012 04/20/2015 Other seborrheic keratosis 07/06/201204/20 Solar lentigo 07/06/2012 04/20/2015 Milia 07/06/2012 04/20/2015 Trigger middle finger of right hand 05/31/2012 04/19/2019 Trigger ring finger of right hand 05/31/2012 04/19/2019 Trigger little finger of left hand 05/03/2012 04/19/2019 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 Other seborrheic dermatitis 03/03/201203/25 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 04/20/2015 Actinic skin damage 03/03/2012 04/20/2015 Trigger middle finger of left hand 09/22/2011 04/19/2019 Trigger index finger of right hand 09/22/2011 04/19/2019 Trigger thumb of right hand 09/22/201103/25 Paresthesia of skin 07/13/2007 06/05/2017 Enthesopathy of unspecified site 07/12/2007 04/19/2019 Pain in limb 06/01/2007 09/30/2016 Dizziness and giddiness 02/11/2007 05/24/20 07 Hypercalcemia 05/19/2006 05/24/2007 Esophageal reflux 11/20/2005 04/19/2019 documented as of this encounter (statuses as of 12/09/2021) [facility] of Past illness Narrative* Problem Noted Date Resolved Date Gastroesophageal reflux disease 08/20/2018 10/07/2018 Overview: Added automatically from request for surgery [id number] Epigastric pain 08/20/2018 04/19/2019 Overview: Added automatically from request for surgery [id number] Hyperlipidemia 10/19/2015 03/31/2017 Trigger ring finger of left hand 06/05/2014 04/19/2019 Perioral dermatitis 03/22/2014 03/31/2017 Postinflammatory skin changes 03/22/2014 Anal burning 03/23/2013 04/20/2015 Irritated//Inflamed Seborrheic Keratosis 012 04/20/2015 Milial cyst 07/06/2012 04/20/2015 Other seborrheic keratosis 07/06/201204/20 Solar lentigo 07/06/2012 04/20/2015 Milia 07/06/2012 04/20/2015 Trigger middle finger of right hand 05/31/2012 04/19/2019 Trigger ring finger of right hand 05/31/2012 04/19/2019 Trigger little finger of left hand 05/03/2012 04/19/2019 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 Other seborrheic dermatitis 03/03/201203/25 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 04/20/2015 Actinic skin damage 03/03/2012 04/20/2015 Trigger middle finger of left hand 09/22/2011 04/19/2019 Trigger index finger of right hand 09/22/2011 04/19/2019 Trigger thumb of right hand 09/22/201103/25 Paresthesia of skin 07/13/2007 06/05/2017 Enthesopathy of unspecified site 07/12/2007 04/19/2019 Pain in limb 06/01/2007 09/30/2016 Dizziness and giddiness 02/11/2007 05/24/20 07 Hypercalcemia 05/19/2006 05/24/2007 Esophageal reflux 11/20/2005 04/19/2019 documented as of this encounter (statuses as of 01/16/2022) [facility] Narrative* Problem Noted Date Resolved Date Gastroesophageal reflux disease 08/20/2018 10/07/2018 Overview: Added automatically from request for surgery [id number] Epigastric pain 08/20/2018 04/19/2019 Overview: Added automatically from request for surgery [id number] Hyperlipidemia 10/19/2015 03/31/2017 Trigger ring finger of left hand 06/05/2014 04/19/2019 Perioral dermatitis 03/22/2014 03/31/2017 Postinflammatory skin changes 03/22/2014 Anal burning 03/23/2013 04/20/2015 Irritated//Inflamed Seborrheic Keratosis 012 04/20/2015 Milial cyst 07/06/2012 04/20/2015 Other seborrheic keratosis 07/06/201204/20 Solar lentigo 07/06/2012 04/20/2015 Milia 07/06/2012 04/20/2015 Trigger middle finger of right hand 05/31/2012 04/19/2019 Trigger ring finger of right hand 05/31/2012 04/19/2019 Trigger little finger of left hand 05/03/2012 04/19/2019 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 Other seborrheic dermatitis 03/03/201203/25 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 04/20/2015 Actinic skin damage 03/03/2012 04/20/2015 Trigger middle finger of left hand 09/22/2011 04/19/2019 Trigger index finger of right hand 09/22/2011 04/19/2019 Trigger thumb of right hand 09/22/201103/25 Paresthesia of skin 07/13/2007 06/05/2017 Enthesopathy of unspecified site 07/12/2007 04/19/2019 Pain in limb 06/01/2007 09/30/2016 Dizziness and giddiness 02/11/2007 05/24/20 07 Hypercalcemia 05/19/2006 05/24/2007 Esophageal reflux 11/20/2005 04/19/2019 documented as of this encounter (statuses as of 01/22/2022) [facility] Narrative* Problem Noted Date Resolved Date Gastroesophageal reflux disease 08/20/2018 10/07/2018 Overview: Added automatically from request for surgery [id number] Epigastric pain 08/20/2018 04/19/2019 Overview: Added automatically from request for surgery [id number] Hyperlipidemia 10/19/2015 03/31/2017 Trigger ring finger of left hand 06/05/2014 04/19/2019 Perioral dermatitis 03/22/2014 03/31/2017 Postinflammatory skin changes 03/22/2014 Anal burning 03/23/2013 04/20/2015 Irritated//Inflamed Seborrheic Keratosis 012 04/20/2015 Milial cyst 07/06/2012 04/20/2015 Other seborrheic keratosis 07/06/201204/20 Solar lentigo 07/06/2012 04/20/2015 Milia 07/06/2012 04/20/2015 Trigger middle finger of right hand 05/31/2012 04/19/2019 Trigger ring finger of right hand 05/31/2012 04/19/2019 Trigger little finger of left hand 05/03/2012 04/19/2019 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 Other seborrheic dermatitis 03/03/201203/25 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 04/20/2015 Actinic skin damage 03/03/2012 04/20/2015 Trigger middle finger of left hand 09/22/2011 04/19/2019 Trigger index finger of right hand 09/22/2011 04/19/2019 Trigger thumb of right hand 09/22/201103/25 Paresthesia of skin 07/13/2007 06/05/2017 Enthesopathy of unspecified site 07/12/2007 04/19/2019 Pain in limb 06/01/2007 09/30/2016 Dizziness and giddiness 02/11/2007 05/24/20 07 Hypercalcemia 05/19/2006 05/24/2007 Esophageal reflux 11/20/2005 04/19/2019 documented as of this encounter (statuses as of 01/28/2022) [facility] Narrative* Problem Noted Date Resolved Date Gastroesophageal reflux disease 08/20/2018 10/07/2018 Overview: Added automatically from request for surgery [id number] Epigastric pain 08/20/2018 04/19/2019 Overview: Added automatically from request for surgery [id number] Hyperlipidemia 10/19/2015 03/31/2017 Trigger ring finger of left hand 06/05/2014 04/19/2019 Perioral dermatitis 03/22/2014 03/31/2017 Postinflammatory skin changes 03/22/2014 Anal burning 03/23/2013 04/20/2015 Irritated//Inflamed Seborrheic Keratosis 012 04/20/2015 Milial cyst 07/06/2012 04/20/2015 Other seborrheic keratosis 07/06/201204/20 Solar lentigo 07/06/2012 04/20/2015 Milia 07/06/2012 04/20/2015 Trigger middle finger of right hand 05/31/2012 04/19/2019 Trigger ring finger of right hand 05/31/2012 04/19/2019 Trigger little finger of left hand 05/03/2012 04/19/2019 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 Other seborrheic dermatitis 03/03/201203/25 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 04/20/2015 Actinic skin damage 03/03/2012 04/20/2015 Trigger middle finger of left hand 09/22/2011 04/19/2019 Trigger index finger of right hand 09/22/2011 04/19/2019 Trigger thumb of right hand 09/22/201103/25 Paresthesia of skin 07/13/2007 06/05/2017 Enthesopathy of unspecified site 07/12/2007 04/19/2019 Pain in limb 06/01/2007 09/30/2016 Dizziness and giddiness 02/11/2007 05/24/20 07 Hypercalcemia 05/19/2006 05/24/2007 Esophageal reflux 11/20/2005 04/19/2019 documented as of this encounter (statuses as of 01/28/2022) [facility] History of Past illness Narrative* Problem Noted Date Resolved Date Gastroesophageal reflux disease 08/20/2018 10/07/2018 Overview: Added automatically from request for surgery [id number] Epigastric pain 08/20/2018 04/19/2019 Overview: Added automatically from request for surgery [id number] Hyperlipidemia 10/19/2015 03/31/2017 Trigger ring finger of left hand 06/05/2014 04/19/2019 Perioral dermatitis 03/22/2014 03/31/2017 Postinflammatory skin changes 03/22/2014 Anal burning 03/23/2013 04/20/2015 Irritated//Inflamed Seborrheic Keratosis 012 04/20/2015 Milial cyst 07/06/2012 04/20/2015 Other seborrheic keratosis 07/06/201204/20 Solar lentigo 07/06/2012 04/20/2015 Milia 07/06/2012 04/20/2015 Trigger middle finger of right hand 05/31/2012 04/19/2019 Trigger ring finger of right hand 05/31/2012 04/19/2019 Trigger little finger of left hand 05/03/2012 04/19/2019 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 Other seborrheic dermatitis 03/03/201203/25 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 04/20/2015 Actinic skin damage 03/03/2012 04/20/2015 Trigger middle finger of left hand 09/22/2011 04/19/2019 Trigger index finger of right hand 09/22/2011 04/19/2019 Trigger thumb of right hand 09/22/201103/25 Paresthesia of skin 07/13/2007 06/05/2017 Enthesopathy of unspecified site 07/12/2007 04/19/2019 Pain in limb 06/01/2007 09/30/2016 Dizziness and giddiness 02/11/2007 05/24/20 07 Hypercalcemia 05/19/2006 05/24/2007 Esophageal reflux 11/20/2005 04/19/2019 documented as of this encounter (statuses as of 01/31/2022) [facility] History of Past illness Narrative* Problem Noted Date Resolved Date Gastroesophageal reflux disease 08/20/2018 10/07/2018 Overview: Added automatically from request for surgery [id number] Epigastric pain 08/20/2018 04/19/2019 Overview: Added automatically from request for surgery [id number] Hyperlipidemia 10/19/2015 03/31/2017 Trigger ring finger of left hand 06/05/2014 04/19/2019 Perioral dermatitis 03/22/2014 03/31/2017 Postinflammatory skin changes 03/22/2014 Anal burning 03/23/2013 04/20/2015 Irritated//Inflamed Seborrheic Keratosis 012 04/20/2015 Milial cyst 07/06/2012 04/20/2015 Other seborrheic keratosis 07/06/201204/20 Solar lentigo 07/06/2012 04/20/2015 Milia 07/06/2012 04/20/2015 Trigger middle finger of right hand 05/31/2012 04/19/2019 Trigger ring finger of right hand 05/31/2012 04/19/2019 Trigger little finger of left hand 05/03/2012 04/19/2019 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 Other seborrheic dermatitis 03/03/201203/25 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 04/20/2015 Actinic skin damage 03/03/2012 04/20/2015 Trigger middle finger of left hand 09/22/2011 04/19/2019 Trigger index finger of right hand 09/22/2011 04/19/2019 Trigger thumb of right hand 09/22/201103/25 Paresthesia of skin 07/13/2007 06/05/2017 Enthesopathy of unspecified site 07/12/2007 04/19/2019 Pain in limb 06/01/2007 09/30/2016 Dizziness and giddiness 02/11/2007 05/24/20 07 Hypercalcemia 05/19/2006 05/24/2007 Esophageal reflux 11/20/2005 04/19/2019 documented as of this encounter (statuses as of 02/06/2022) [facility] History of Past illness Narrative* Problem Noted Date Resolved Date Gastroesophageal reflux disease 08/20/2018 10/07/2018 Overview: Added automatically from request for surgery [id number] Epigastric pain 08/20/2018 04/19/2019 Overview: Added automatically from request for surgery [id number] Hyperlipidemia 10/19/2015 03/31/2017 Trigger ring finger of left hand 06/05/2014 04/19/2019 Perioral dermatitis 03/22/2014 03/31/2017 Postinflammatory skin changes 03/22/2014 Anal burning 03/23/2013 04/20/2015 Irritated//Inflamed Seborrheic Keratosis 012 04/20/2015 Milial cyst 07/06/2012 04/20/2015 Other seborrheic keratosis 07/06/201204/20 Solar lentigo 07/06/2012 04/20/2015 Milia 07/06/2012 04/20/2015 Trigger middle finger of right hand 05/31/2012 04/19/2019 Trigger ring finger of right hand 05/31/2012 04/19/2019 Trigger little finger of left hand 05/03/2012 04/19/2019 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 Other seborrheic dermatitis 03/03/201203/25 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 04/20/2015 Actinic skin damage 03/03/2012 04/20/2015 Trigger middle finger of left hand 09/22/2011 04/19/2019 Trigger index finger of right hand 09/22/2011 04/19/2019 Trigger thumb of right hand 09/22/201103/25 Paresthesia of skin 07/13/2007 06/05/2017 Enthesopathy of unspecified site 07/12/2007 04/19/2019 Pain in limb 06/01/2007 09/30/2016 Dizziness and giddiness 02/11/2007 05/24/20 07 Hypercalcemia 05/19/2006 05/24/2007 Esophageal reflux 11/20/2005 04/19/2019 documented as of this encounter (statuses as of 02/17/2022) [facility] History of Past illness Narrative* Problem Noted Date Resolved Date Gastroesophageal reflux disease 08/20/2018 10/07/2018 Overview: Added automatically from request for surgery [id number] Epigastric pain 08/20/2018 04/19/2019 Overview: Added automatically from request for surgery [id number] Hyperlipidemia 10/19/2015 03/31/2017 Trigger ring finger of left hand 06/05/2014 04/19/2019 Perioral dermatitis 03/22/2014 03/31/2017 Postinflammatory skin changes 03/22/2014 Anal burning 03/23/2013 04/20/2015 Irritated//Inflamed Seborrheic Keratosis 012 04/20/2015 Milial cyst 07/06/2012 04/20/2015 Other seborrheic keratosis 07/06/201204/20 Solar lentigo 07/06/2012 04/20/2015 Milia 07/06/2012 04/20/2015 Trigger middle finger of right hand 05/31/2012 04/19/2019 Trigger ring finger of right hand 05/31/2012 04/19/2019 Trigger little finger of left hand 05/03/2012 04/19/2019 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 Other seborrheic dermatitis 03/03/201203/25 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 04/20/2015 Actinic skin damage 03/03/2012 04/20/2015 Trigger middle finger of left hand 09/22/2011 04/19/2019 Trigger index finger of right hand 09/22/2011 04/19/2019 Trigger thumb of right hand 09/22/201103/25 Paresthesia of skin 07/13/2007 06/05/2017 Enthesopathy of unspecified site 07/12/2007 04/19/2019 Pain in limb 06/01/2007 09/30/2016 Dizziness and giddiness 02/11/2007 05/24/20 07 Hypercalcemia 05/19/2006 05/24/2007 Esophageal reflux 11/20/2005 04/19/2019 documented as of this encounter (statuses as of 03/27/2022) [facility] History of Past illness Narrative* Problem Noted Date Resolved Date Gastroesophageal reflux disease 08/20/2018 10/07/2018 Overview: Added automatically from request for surgery [id number] Epigastric pain 08/20/2018 04/19/2019 Overview: Added automatically from request for surgery [id number] Hyperlipidemia 10/19/2015 03/31/2017 Trigger ring finger of left hand 06/05/2014 04/19/2019 Perioral dermatitis 03/22/2014 03/31/2017 Postinflammatory skin changes 03/22/2014 Anal burning 03/23/2013 04/20/2015 Irritated//Inflamed Seborrheic Keratosis 012 04/20/2015 Milial cyst 07/06/2012 04/20/2015 Other seborrheic keratosis 07/06/201204/20 Solar lentigo 07/06/2012 04/20/2015 Milia 07/06/2012 04/20/2015 Trigger middle finger of right hand 05/31/2012 04/19/2019 Trigger ring finger of right hand 05/31/2012 04/19/2019 Trigger little finger of left hand 05/03/2012 04/19/2019 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 Other seborrheic dermatitis 03/03/201203/25 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 04/20/2015 Actinic skin damage 03/03/2012 04/20/2015 Trigger middle finger of left hand 09/22/2011 04/19/2019 Trigger index finger of right hand 09/22/2011 04/19/2019 Trigger thumb of right hand 09/22/201103/25 Paresthesia of skin 07/13/2007 06/05/2017 Enthesopathy of unspecified site 07/12/2007 04/19/2019 Pain in limb 06/01/2007 09/30/2016 Dizziness and giddiness 02/11/2007 05/24/20 07 Hypercalcemia 05/19/2006 05/24/2007 Esophageal reflux 11/20/2005 04/19/2019 documented as of this encounter (statuses as of 03/29/2022) [facility] of Past illness Narrative* Problem Noted Date Resolved Date Gastroesophageal reflux disease 08/20/2018 10/07/2018 Overview: Added automatically from request for surgery [id number] Epigastric pain 08/20/2018 04/19/2019 Overview: Added automatically from request for surgery [id number] Hyperlipidemia 10/19/2015 03/31/2017 Trigger ring finger of left hand 06/05/2014 04/19/2019 Perioral dermatitis 03/22/2014 03/31/2017 Postinflammatory skin changes 03/22/2014 Anal burning 03/23/2013 04/20/2015 Irritated//Inflamed Seborrheic Keratosis 012 04/20/2015 Milial cyst 07/06/2012 04/20/2015 Other seborrheic keratosis 07/06/201204/20 Solar lentigo 07/06/2012 04/20/2015 Milia 07/06/2012 04/20/2015 Trigger middle finger of right hand 05/31/2012 04/19/2019 Trigger ring finger of right hand 05/31/2012 04/19/2019 Trigger little finger of left hand 05/03/2012 04/19/2019 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 Other seborrheic dermatitis 03/03/201203/25 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 04/20/2015 Actinic skin damage 03/03/2012 04/20/2015 Trigger middle finger of left hand 09/22/2011 04/19/2019 Trigger index finger of right hand 09/22/2011 04/19/2019 Trigger thumb of right hand 09/22/201103/25 Paresthesia of skin 07/13/2007 06/05/2017 Enthesopathy of unspecified site 07/12/2007 04/19/2019 Pain in limb 06/01/2007 09/30/2016 Dizziness and giddiness 02/11/2007 05/24/20 07 Hypercalcemia 05/19/2006 05/24/2007 Esophageal reflux 11/20/2005 04/19/2019 documented as of this encounter (statuses as of 04/01/2022) [facility] History of Past illness Narrative* Problem Noted Date Resolved Date Gastroesophageal reflux disease 08/20/2018 10/07/2018 Overview: Added automatically from request for surgery [id number] Epigastric pain 08/20/2018 04/19/2019 Overview: Added automatically from request for surgery [id number] Hyperlipidemia 10/19/2015 03/31/2017 Trigger ring finger of left hand 06/05/2014 04/19/2019 Perioral dermatitis 03/22/2014 03/31/2017 Postinflammatory skin changes 03/22/2014 Anal burning 03/23/2013 04/20/2015 Irritated//Inflamed Seborrheic Keratosis 012 04/20/2015 Milial cyst 07/06/2012 04/20/2015 Other seborrheic keratosis 07/06/201204/20 Solar lentigo 07/06/2012 04/20/2015 Milia 07/06/2012 04/20/2015 Trigger middle finger of right hand 05/31/2012 04/19/2019 Trigger ring finger of right hand 05/31/2012 04/19/2019 Trigger little finger of left hand 05/03/2012 04/19/2019 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 Other seborrheic dermatitis 03/03/201203/25 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 04/20/2015 Actinic skin damage 03/03/2012 04/20/2015 Trigger middle finger of left hand 09/22/2011 04/19/2019 Trigger index finger of right hand 09/22/2011 04/19/2019 Trigger thumb of right hand 09/22/201103/25 Paresthesia of skin 07/13/2007 06/05/2017 Enthesopathy of unspecified site 07/12/2007 04/19/2019 Pain in limb 06/01/2007 09/30/2016 Dizziness and giddiness 02/11/2007 05/24/20 07 Hypercalcemia 05/19/2006 05/24/2007 Esophageal reflux 11/20/2005 04/19/2019 documented as of this encounter (statuses as of 04/02/2022) [facility] of Past illness Narrative* Problem Noted Date Resolved Date Gastroesophageal reflux disease 08/20/2018 10/07/2018 Overview: Added automatically from request for surgery [id number] Epigastric pain 08/20/2018 04/19/2019 Overview: Added automatically from request for surgery [id number] Hyperlipidemia 10/19/2015 03/31/2017 Trigger ring finger of left hand 06/05/2014 04/19/2019 Perioral dermatitis 03/22/2014 03/31/2017 Postinflammatory skin changes 03/22/2014 Anal burning 03/23/2013 04/20/2015 Irritated//Inflamed Seborrheic Keratosis 012 04/20/2015 Milial cyst 07/06/2012 04/20/2015 Other seborrheic keratosis 07/06/201204/20 Solar lentigo 07/06/2012 04/20/2015 Milia 07/06/2012 04/20/2015 Trigger middle finger of right hand 05/31/2012 04/19/2019 Trigger ring finger of right hand 05/31/2012 04/19/2019 Trigger little finger of left hand 05/03/2012 04/19/2019 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 Other seborrheic dermatitis 03/03/201203/25 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 04/20/2015 Actinic skin damage 03/03/2012 04/20/2015 Trigger middle finger of left hand 09/22/2011 04/19/2019 Trigger index finger of right hand 09/22/2011 04/19/2019 Trigger thumb of right hand 09/22/201103/25 Paresthesia of skin 07/13/2007 06/05/2017 Enthesopathy of unspecified site 07/12/2007 04/19/2019 Pain in limb 06/01/2007 09/30/2016 Dizziness and giddiness 02/11/2007 05/24/20 07 Hypercalcemia 05/19/2006 05/24/2007 Esophageal reflux 11/20/2005 04/19/2019 documented as of this encounter (statuses as of 04/04/2022) [facility] of Past illness Narrative* Problem Noted Date Resolved Date Gastroesophageal reflux disease 08/20/2018 10/07/2018 Overview: Added automatically from request for surgery [id number] Epigastric pain 08/20/2018 04/19/2019 Overview: Added automatically from request for surgery [id number] Hyperlipidemia 10/19/2015 03/31/2017 Trigger ring finger of left hand 06/05/2014 04/19/2019 Perioral dermatitis 03/22/2014 03/31/2017 Postinflammatory skin changes 03/22/2014 Anal burning 03/23/2013 04/20/2015 Irritated//Inflamed Seborrheic Keratosis 012 04/20/2015 Milial cyst 07/06/2012 04/20/2015 Other seborrheic keratosis 07/06/201204/20 Solar lentigo 07/06/2012 04/20/2015 Milia 07/06/2012 04/20/2015 Trigger middle finger of right hand 05/31/2012 04/19/2019 Trigger ring finger of right hand 05/31/2012 04/19/2019 Trigger little finger of left hand 05/03/2012 04/19/2019 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 Other seborrheic dermatitis 03/03/201203/25 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 04/20/2015 Actinic skin damage 03/03/2012 04/20/2015 Trigger middle finger of left hand 09/22/2011 04/19/2019 Trigger index finger of right hand 09/22/2011 04/19/2019 Trigger thumb of right hand 09/22/201103/25 Paresthesia of skin 07/13/2007 06/05/2017 Enthesopathy of unspecified site 07/12/2007 04/19/2019 Pain in limb 06/01/2007 09/30/2016 Dizziness and giddiness 02/11/2007 05/24/20 07 Hypercalcemia 05/19/2006 05/24/2007 Esophageal reflux 11/20/2005 04/19/2019 documented as of this encounter (statuses as of 04/07/2022) [facility] Past illness Narrative* Problem Noted Date Resolved Date Gastroesophageal reflux disease 08/20/2018 10/07/2018 Overview: Added automatically from request for surgery [id number] Epigastric pain 08/20/2018 04/19/2019 Overview: Added automatically from request for surgery [id number] Hyperlipidemia 10/19/2015 03/31/2017 Trigger ring finger of left hand 06/05/2014 04/19/2019 Perioral dermatitis 03/22/2014 03/31/2017 Postinflammatory skin changes 03/22/2014 Anal burning 03/23/2013 04/20/2015 Irritated//Inflamed Seborrheic Keratosis 012 04/20/2015 Milial cyst 07/06/2012 04/20/2015 Other seborrheic keratosis 07/06/201204/20 Solar lentigo 07/06/2012 04/20/2015 Milia 07/06/2012 04/20/2015 Trigger middle finger of right hand 05/31/2012 04/19/2019 Trigger ring finger of right hand 05/31/2012 04/19/2019 Trigger little finger of left hand 05/03/2012 04/19/2019 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 Other seborrheic dermatitis 03/03/201203/25 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 04/20/2015 Actinic skin damage 03/03/2012 04/20/2015 Trigger middle finger of left hand 09/22/2011 04/19/2019 Trigger index finger of right hand 09/22/2011 04/19/2019 Trigger thumb of right hand 09/22/201103/25 Paresthesia of skin 07/13/2007 06/05/2017 Enthesopathy of unspecified site 07/12/2007 04/19/2019 Pain in limb 06/01/2007 09/30/2016 Dizziness and giddiness 02/11/2007 05/24/20 07 Hypercalcemia 05/19/2006 05/24/2007 Esophageal reflux 11/20/2005 04/19/2019 documented as of this encounter (statuses as of 04/10/2022) [facility]arrative* Problem Noted Date Resolved Date Gastroesophageal reflux disease 08/20/2018 10/07/2018 Overview: Added automatically from request for surgery [id number] Epigastric pain 08/20/2018 04/19/2019 Overview: Added automatically from request for surgery [id number] Hyperlipidemia 10/19/2015 03/31/2017 Trigger ring finger of left hand 06/05/2014 04/19/2019 Perioral dermatitis 03/22/2014 03/31/2017 Postinflammatory skin changes 03/22/2014 Anal burning 03/23/2013 04/20/2015 Irritated//Inflamed Seborrheic Keratosis 012 04/20/2015 Milial cyst 07/06/2012 04/20/2015 Other seborrheic keratosis 07/06/201204/20 Solar lentigo 07/06/2012 04/20/2015 Milia 07/06/2012 04/20/2015 Trigger middle finger of right hand 05/31/2012 04/19/2019 Trigger ring finger of right hand 05/31/2012 04/19/2019 Trigger little finger of left hand 05/03/2012 04/19/2019 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 Other seborrheic dermatitis 03/03/201203/25 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 04/20/2015 Actinic skin damage 03/03/2012 04/20/2015 Trigger middle finger of left hand 09/22/2011 04/19/2019 Trigger index finger of right hand 09/22/2011 04/19/2019 Trigger thumb of right hand 09/22/201103/25 Paresthesia of skin 07/13/2007 06/05/2017 Enthesopathy of unspecified site 07/12/2007 04/19/2019 Pain in limb 06/01/2007 09/30/2016 Dizziness and giddiness 02/11/2007 05/24/20 07 Hypercalcemia 05/19/2006 05/24/2007 Esophageal reflux 11/20/2005 04/19/2019 documented as of this encounter (statuses as of 04/11/2022) [facility]arrative* Problem Noted Date Resolved Date Gastroesophageal reflux disease 08/20/2018 10/07/2018 Overview: Added automatically from request for surgery [id number] Epigastric pain 08/20/2018 04/19/2019 Overview: Added automatically from request for surgery [id number] Hyperlipidemia 10/19/2015 03/31/2017 Trigger ring finger of left hand 06/05/2014 04/19/2019 Perioral dermatitis 03/22/2014 03/31/2017 Postinflammatory skin changes 03/22/2014 Anal burning 03/23/2013 04/20/2015 Irritated//Inflamed Seborrheic Keratosis 012 04/20/2015 Milial cyst 07/06/2012 04/20/2015 Other seborrheic keratosis 07/06/201204/20 Solar lentigo 07/06/2012 04/20/2015 Milia 07/06/2012 04/20/2015 Trigger middle finger of right hand 05/31/2012 04/19/2019 Trigger ring finger of right hand 05/31/2012 04/19/2019 Trigger little finger of left hand 05/03/2012 04/19/2019 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 Other seborrheic dermatitis 03/03/201203/25 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 04/20/2015 Actinic skin damage 03/03/2012 04/20/2015 Trigger middle finger of left hand 09/22/2011 04/19/2019 Trigger index finger of right hand 09/22/2011 04/19/2019 Trigger thumb of right hand 09/22/201103/25 Paresthesia of skin 07/13/2007 06/05/2017 Enthesopathy of unspecified site 07/12/2007 04/19/2019 Pain in limb 06/01/2007 09/30/2016 Dizziness and giddiness 02/11/2007 05/24/20 07 Hypercalcemia 05/19/2006 05/24/2007 Esophageal reflux 11/20/2005 04/19/2019 documented as of this encounter (statuses as of 04/16/2022) [facility]arrative* Problem Noted Date Resolved Date Gastroesophageal reflux disease 08/20/2018 10/07/2018 Overview: Added automatically from request for surgery [id number] Epigastric pain 08/20/2018 04/19/2019 Overview: Added automatically from request for surgery [id number] Hyperlipidemia 10/19/2015 03/31/2017 Trigger ring finger of left hand 06/05/2014 04/19/2019 Perioral dermatitis 03/22/2014 03/31/2017 Postinflammatory skin changes 03/22/2014 Anal burning 03/23/2013 04/20/2015 Irritated//Inflamed Seborrheic Keratosis 012 04/20/2015 Milial cyst 07/06/2012 04/20/2015 Other seborrheic keratosis 07/06/201204/20 Solar lentigo 07/06/2012 04/20/2015 Milia 07/06/2012 04/20/2015 Trigger middle finger of right hand 05/31/2012 04/19/2019 Trigger ring finger of right hand 05/31/2012 04/19/2019 Trigger little finger of left hand 05/03/2012 04/19/2019 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 Other seborrheic dermatitis 03/03/201203/25 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 04/20/2015 Actinic skin damage 03/03/2012 04/20/2015 Trigger middle finger of left hand 09/22/2011 04/19/2019 Trigger index finger of right hand 09/22/2011 04/19/2019 Trigger thumb of right hand 09/22/201103/25 Paresthesia of skin 07/13/2007 06/05/2017 Enthesopathy of unspecified site 07/12/2007 04/19/2019 Pain in limb 06/01/2007 09/30/2016 Dizziness and giddiness 02/11/2007 05/24/20 07 Hypercalcemia 05/19/2006 05/24/2007 Esophageal reflux 11/20/2005 04/19/2019 documented as of this encounter (statuses as of 04/17/2022) [facility]arrative* Problem Noted Date Resolved Date Gastroesophageal reflux disease 08/20/2018 10/07/2018 Overview: Added automatically from request for surgery [id number] Epigastric pain 08/20/2018 04/19/2019 Overview: Added automatically from request for surgery [id number] Hyperlipidemia 10/19/2015 03/31/2017 Trigger ring finger of left hand 06/05/2014 04/19/2019 Perioral dermatitis 03/22/2014 03/31/2017 Postinflammatory skin changes 03/22/2014 Anal burning 03/23/2013 04/20/2015 Irritated//Inflamed Seborrheic Keratosis 012 04/20/2015 Milial cyst 07/06/2012 04/20/2015 Other seborrheic keratosis 07/06/201204/20 Solar lentigo 07/06/2012 04/20/2015 Milia 07/06/2012 04/20/2015 Trigger middle finger of right hand 05/31/2012 04/19/2019 Trigger ring finger of right hand 05/31/2012 04/19/2019 Trigger little finger of left hand 05/03/2012 04/19/2019 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 Other seborrheic dermatitis 03/03/201203/25 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 04/20/2015 Actinic skin damage 03/03/2012 04/20/2015 Trigger middle finger of left hand 09/22/2011 04/19/2019 Trigger index finger of right hand 09/22/2011 04/19/2019 Trigger thumb of right hand 09/22/201103/25 Paresthesia of skin 07/13/2007 06/05/2017 Enthesopathy of unspecified site 07/12/2007 04/19/2019 Pain in limb 06/01/2007 09/30/2016 Dizziness and giddiness 02/11/2007 05/24/20 07 Hypercalcemia 05/19/2006 05/24/2007 Esophageal reflux 11/20/2005 04/19/2019 documented as of this encounter (statuses as of 04/17/2022) [facility]* Problem Noted Date Resolved Date Gastroesophageal reflux disease 08/20/2018 10/07/2018 Overview: Added automatically from request for surgery [id number] Epigastric pain 08/20/2018 04/19/2019 Overview: Added automatically from request for surgery [id number] Hyperlipidemia 10/19/2015 03/31/2017 Trigger ring finger of left hand 06/05/2014 04/19/2019 Perioral dermatitis 03/22/2014 03/31/2017 Postinflammatory skin changes 03/22/2014 Anal burning 03/23/2013 04/20/2015 Irritated//Inflamed Seborrheic Keratosis 012 04/20/2015 Milial cyst 07/06/2012 04/20/2015 Other seborrheic keratosis 07/06/201204/20 Solar lentigo 07/06/2012 04/20/2015 Milia 07/06/2012 04/20/2015 Trigger middle finger of right hand 05/31/2012 04/19/2019 Trigger ring finger of right hand 05/31/2012 04/19/2019 Trigger little finger of left hand 05/03/2012 04/19/2019 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 Other seborrheic dermatitis 03/03/201203/25 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 04/20/2015 Actinic skin damage 03/03/2012 04/20/2015 Trigger middle finger of left hand 09/22/2011 04/19/2019 Trigger index finger of right hand 09/22/2011 04/19/2019 Trigger thumb of right hand 09/22/201103/25 Paresthesia of skin 07/13/2007 06/05/2017 Enthesopathy of unspecified site 07/12/2007 04/19/2019 Pain in limb 06/01/2007 09/30/2016 Dizziness and giddiness 02/11/2007 05/24/20 07 Hypercalcemia 05/19/2006 05/24/2007 Esophageal reflux 11/20/2005 04/19/2019 documented as of this encounter (statuses as of 04/17/2022) [facility]12-28-2018 History of Past illness Narrative* Problem Noted Date Resolved Date Gastroesophageal reflux disease 08/20/2018 10/07/2018 Overview: Added automatically from request for surgery [id number] Epigastric pain 08/20/2018 04/19/2019 Overview: Added automatically from request for surgery [id number] Hyperlipidemia 10/19/2015 03/31/2017 Trigger ring finger of left hand 06/05/2014 04/19/2019 Perioral dermatitis 03/22/2014 03/31/2017 Acne rosacea 03/22/2014 05/12/2022 Postinflammatory skin changes 03/22/2014 Perianal dermatitis 08/22/2013 05/12/2022 Anal burning 03/23/2013 04/20/2015 Irritated//Inflamed Seborrheic Keratosis 012 04/20/2015 Milial cyst 07/06/2012 04/20/2015 Other seborrheic keratosis 07/06/201204/20 Solar lentigo 07/06/2012 04/20/2015 Milia 07/06/2012 04/20/2015 Trigger middle finger of right hand 05/31/2012 04/19/2019 Trigger ring finger of right hand 05/31/2012 04/19/2019 Trigger little finger of left hand 05/03/2012 04/19/2019 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 Other seborrheic dermatitis 03/03/201203/25 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 04/20/2015 Actinic skin damage 03/03/2012 04/20/2015 Trigger middle finger of left hand 09/22/2011 04/19/2019 Trigger index finger of right hand 09/22/2011 04/19/2019 Trigger thumb of right hand 09/22/201103/25 Psoriatic arthritis 02/13/2011 05/12/2022 Paresthesia of skin 07/13/2007 06/05/2017 Enthesopathy of unspecified site 07/12/2007 04/19/2019 Pain in limb 06/01/2007 09/30/2016 Dizziness and giddiness 02/11/2007 05/24/20 07 Hypercalcemia 05/19/2006 05/24/2007 Disorder of kidney and ureter 05/19/2006 URETHRITIS OTHER SPECIFIED 01/13/200605/12 Esophageal reflux 11/20/2005 04/19/2019 documented as of this encounter (statuses as of 05/12/2022) [facility] History of Past illness Narrative* Problem Noted Date Resolved Date Gastroesophageal reflux disease 08/20/2018 10/07/2018 Overview: Added automatically from request for surgery [id number] Epigastric pain 08/20/2018 04/19/2019 Overview: Added automatically from request for surgery [id number] Hyperlipidemia 10/19/2015 03/31/2017 Trigger ring finger of left hand 06/05/2014 04/19/2019 Perioral dermatitis 03/22/2014 03/31/2017 Acne rosacea 03/22/2014 05/12/2022 Postinflammatory skin changes 03/22/2014 Perianal dermatitis 08/22/2013 05/12/2022 Anal burning 03/23/2013 04/20/2015 Irritated//Inflamed Seborrheic Keratosis 012 04/20/2015 Milial cyst 07/06/2012 04/20/2015 Other seborrheic keratosis 07/06/201204/20 Solar lentigo 07/06/2012 04/20/2015 Milia 07/06/2012 04/20/2015 Trigger middle finger of right hand 05/31/2012 04/19/2019 Trigger ring finger of right hand 05/31/2012 04/19/2019 Trigger little finger of left hand 05/03/2012 04/19/2019 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 Other seborrheic dermatitis 03/03/201203/25 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 04/20/2015 Actinic skin damage 03/03/2012 04/20/2015 Trigger middle finger of left hand 09/22/2011 04/19/2019 Trigger index finger of right hand 09/22/2011 04/19/2019 Trigger thumb of right hand 09/22/201103/25 Psoriatic arthritis 02/13/2011 05/12/2022 Paresthesia of skin 07/13/2007 06/05/2017 Enthesopathy of unspecified site 07/12/2007 04/19/2019 Pain in limb 06/01/2007 09/30/2016 Dizziness and giddiness 02/11/2007 05/24/20 07 Hypercalcemia 05/19/2006 05/24/2007 Disorder of kidney and ureter 05/19/2006 URETHRITIS OTHER SPECIFIED 01/13/200605/12 Esophageal reflux 11/20/2005 04/19/2019 documented as of this encounter (statuses as of 05/23/2022) [facility]12[facility]2018 History of Past illness Narrative* Problem Noted Date Resolved Date Gastroesophageal reflux disease 08/20/2018 10/07/2018 Overview: Added automatically from request for surgery [id number] Epigastric pain 08/20/2018 04/19/2019 Overview: Added automatically from request for surgery [id number] Hyperlipidemia 10/19/2015 03/31/2017 Trigger ring finger of left hand 06/05/2014 04/19/2019 Perioral dermatitis 03/22/2014 03/31/2017 Acne rosacea 03/22/2014 05/12/2022 Postinflammatory skin changes 03/22/2014 Perianal dermatitis 08/22/2013 05/12/2022 Anal burning 03/23/2013 04/20/2015 Irritated//Inflamed Seborrheic Keratosis 012 04/20/2015 Milial cyst 07/06/2012 04/20/2015 Other seborrheic keratosis 07/06/201204/20 Solar lentigo 07/06/2012 04/20/2015 Milia 07/06/2012 04/20/2015 Trigger middle finger of right hand 05/31/2012 04/19/2019 Trigger ring finger of right hand 05/31/2012 04/19/2019 Trigger little finger of left hand 05/03/2012 04/19/2019 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 Other seborrheic dermatitis 03/03/201203/25 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 04/20/2015 Actinic skin damage 03/03/2012 04/20/2015 Trigger middle finger of left hand 09/22/2011 04/19/2019 Trigger index finger of right hand 09/22/2011 04/19/2019 Trigger thumb of right hand 09/22/201103/25 Psoriatic arthritis 02/13/2011 05/12/2022 Paresthesia of skin 07/13/2007 06/05/2017 Enthesopathy of unspecified site 07/12/2007 04/19/2019 Pain in limb 06/01/2007 09/30/2016 Dizziness and giddiness 02/11/2007 05/24/20 Hypercalcemia 05/19/2006 05/24/2007 Disorder of kidney and ureter 05/19/2006 URETHRITIS OTHER SPECIFIED 01/13/200605/12 Esophageal reflux 11/20/2005 04/19/2019 documented as of this encounter (statuses as of 05/30/2022) [facility]12[facility]2018 History of Past illness Narrative* Problem Noted Date Resolved Date Gastroesophageal reflux disease 08/20/2018 10/07/2018 Overview: Added automatically from request for surgery [id number] Epigastric pain 08/20/2018 04/19/2019 Overview: Added automatically from request for surgery [id number] Hyperlipidemia 10/19/2015 03/31/2017 Trigger ring finger of left hand 06/05/2014 04/19/2019 Perioral dermatitis 03/22/2014 03/31/2017 Acne rosacea 03/22/2014 05/12/2022 Postinflammatory skin changes 03/22/2014 Perianal dermatitis 08/22/2013 05/12/2022 Anal burning 03/23/2013 04/20/2015 Irritated//Inflamed Seborrheic Keratosis 012 04/20/2015 Milial cyst 07/06/2012 04/20/2015 Other seborrheic keratosis 07/06/201204/20 Solar lentigo 07/06/2012 04/20/2015 Milia 07/06/2012 04/20/2015 Trigger middle finger of right hand 05/31/2012 04/19/2019 Trigger ring finger of right hand 05/31/2012 04/19/2019 Trigger little finger of left hand 05/03/2012 04/19/2019 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 Other seborrheic dermatitis 03/03/201203/25 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 04/20/2015 Actinic skin damage 03/03/2012 04/20/2015 Trigger middle finger of left hand 09/22/2011 04/19/2019 Trigger index finger of right hand 09/22/2011 04/19/2019 Trigger thumb of right hand 09/22/201103/25 Psoriatic arthritis 02/13/2011 05/12/2022 Paresthesia of skin 07/13/2007 06/05/2017 Enthesopathy of unspecified site 07/12/2007 04/19/2019 Pain in limb 06/01/2007 09/30/2016 Dizziness and giddiness 02/11/2007 05/24/20 07 Hypercalcemia 05/19/2006 05/24/2007 Disorder of kidney and ureter 05/19/2006 URETHRITIS OTHER SPECIFIED 01/13/200605/12 Esophageal reflux 11/20/2005 04/19/2019 documented as of this encounter (statuses as of 06/06/2022) [facility]12[facility] History of Past illness Narrative* Problem Noted Date Resolved Date Gastroesophageal reflux disease 08/20/2018 10/07/2018 Overview: Added automatically from request for surgery [id number] Epigastric pain 08/20/2018 04/19/2019 Overview: Added automatically from request for surgery [id number] Hyperlipidemia 10/19/2015 03/31/2017 Trigger ring finger of left hand 06/05/2014 04/19/2019 Perioral dermatitis 03/22/2014 03/31/2017 Acne rosacea 03/22/2014 05/12/2022 Postinflammatory skin changes 03/22/2014 Perianal dermatitis 08/22/2013 05/12/2022 Anal burning 03/23/2013 04/20/2015 Irritated//Inflamed Seborrheic Keratosis 012 04/20/2015 Milial cyst 07/06/2012 04/20/2015 Other seborrheic keratosis 07/06/201204/20 Solar lentigo 07/06/2012 04/20/2015 Milia 07/06/2012 04/20/2015 Trigger middle finger of right hand 05/31/2012 04/19/2019 Trigger ring finger of right hand 05/31/2012 04/19/2019 Trigger little finger of left hand 05/03/2012 04/19/2019 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 Other seborrheic dermatitis 03/03/201203/25 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 04/20/2015 Actinic skin damage 03/03/2012 04/20/2015 Trigger middle finger of left hand 09/22/2011 04/19/2019 Trigger index finger of right hand 09/22/2011 04/19/2019 Trigger thumb of right hand 09/22/201103/25 Psoriatic arthritis 02/13/2011 05/12/2022 Paresthesia of skin 07/13/2007 06/05/2017 Enthesopathy of unspecified site 07/12/2007 04/19/2019 Pain in limb 06/01/2007 09/30/2016 Dizziness and giddiness 02/11/2007 05/24/20 07 Hypercalcemia 05/19/2006 05/24/2007 Disorder of kidney and ureter 05/19/2006 URETHRITIS OTHER SPECIFIED 01/13/200605/12 Esophageal reflux 11/20/2005 04/19/2019 documented as of this encounter (statuses as of 06/20/2022) [facility]12[facility] History of Past illness Narrative* Problem Noted Date Resolved Date Gastroesophageal reflux disease 08/20/2018 10/07/2018 Overview: Added automatically from request for surgery [id number] Epigastric pain 08/20/2018 04/19/2019 Overview: Added automatically from request for surgery [id number] Hyperlipidemia 10/19/2015 03/31/2017 Trigger ring finger of left hand 06/05/2014 04/19/2019 Perioral dermatitis 03/22/2014 03/31/2017 Acne rosacea 03/22/2014 05/12/2022 Postinflammatory skin changes 03/22/2014 Perianal dermatitis 08/22/2013 05/12/2022 Anal burning 03/23/2013 04/20/2015 Irritated//Inflamed Seborrheic Keratosis 012 04/20/2015 Milial cyst 07/06/2012 04/20/2015 Other seborrheic keratosis 07/06/201204/20 Solar lentigo 07/06/2012 04/20/2015 Milia 07/06/2012 04/20/2015 Trigger middle finger of right hand 05/31/2012 04/19/2019 Trigger ring finger of right hand 05/31/2012 04/19/2019 Trigger little finger of left hand 05/03/2012 04/19/2019 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 Other seborrheic dermatitis 03/03/201203/25 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 04/20/2015 Actinic skin damage 03/03/2012 04/20/2015 Trigger middle finger of left hand 09/22/2011 04/19/2019 Trigger index finger of right hand 09/22/2011 04/19/2019 Trigger thumb of right hand 09/22/201103/25 Psoriatic arthritis 02/13/2011 05/12/2022 Paresthesia of skin 07/13/2007 06/05/2017 Enthesopathy of unspecified site 07/12/2007 04/19/2019 Pain in limb 06/01/2007 09/30/2016 Dizziness and giddiness 02/11/2007 05/24/20 07 Hypercalcemia 05/19/2006 05/24/2007 Disorder of kidney and ureter 05/19/2006 URETHRITIS OTHER SPECIFIED 01/13/200605/12 Esophageal reflux 11/20/2005 04/19/2019 documented as of this encounter (statuses as of 06/30/2022) [facility] History of Past illness Narrative* Problem Noted Date Resolved Date Gastroesophageal reflux disease 08/20/2018 10/07/2018 Overview: Added automatically from request for surgery [id number] Epigastric pain 08/20/2018 04/19/2019 Overview: Added automatically from request for surgery [id number] Hyperlipidemia 10/19/2015 03/31/2017 Trigger ring finger of left hand 06/05/2014 04/19/2019 Perioral dermatitis 03/22/2014 03/31/2017 Acne rosacea 03/22/2014 05/12/2022 Postinflammatory skin changes 03/22/2014 Perianal dermatitis 08/22/2013 05/12/2022 Anal burning 03/23/2013 04/20/2015 Irritated//Inflamed Seborrheic Keratosis 012 04/20/2015 Milial cyst 07/06/2012 04/20/2015 Other seborrheic keratosis 07/06/201204/20 Solar lentigo 07/06/2012 04/20/2015 Milia 07/06/2012 04/20/2015 Trigger middle finger of right hand 05/31/2012 04/19/2019 Trigger ring finger of right hand 05/31/2012 04/19/2019 Trigger little finger of left hand 05/03/2012 04/19/2019 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 Other seborrheic dermatitis 03/03/201203/25 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 04/20/2015 Actinic skin damage 03/03/2012 04/20/2015 Trigger middle finger of left hand 09/22/2011 04/19/2019 Trigger index finger of right hand 09/22/2011 04/19/2019 Trigger thumb of right hand 09/22/201103/25 Psoriatic arthritis 02/13/2011 05/12/2022 Paresthesia of skin 07/13/2007 06/05/2017 Enthesopathy of unspecified site 07/12/2007 04/19/2019 Pain in limb 06/01/2007 09/30/2016 Dizziness and giddiness 02/11/2007 05/24/20 07 Hypercalcemia 05/19/2006 05/24/2007 Disorder of kidney and ureter 05/19/2006 URETHRITIS OTHER SPECIFIED 01/13/200605/12 Esophageal reflux 11/20/2005 04/19/2019 documented as of this encounter (statuses as of 07/09/2022) [facility] History of Past illness Narrative* Problem Noted Date Resolved Date Gastroesophageal reflux disease 08/20/2018 10/07/2018 Overview: Added automatically from request for surgery [id number] Epigastric pain 08/20/2018 04/19/2019 Overview: Added automatically from request for surgery [id number] Hyperlipidemia 10/19/2015 03/31/2017 Trigger ring finger of left hand 06/05/2014 04/19/2019 Perioral dermatitis 03/22/2014 03/31/2017 Acne rosacea 03/22/2014 05/12/2022 Postinflammatory skin changes 03/22/2014 Perianal dermatitis 08/22/2013 05/12/2022 Anal burning 03/23/2013 04/20/2015 Irritated//Inflamed Seborrheic Keratosis 012 04/20/2015 Milial cyst 07/06/2012 04/20/2015 Other seborrheic keratosis 07/06/201204/20 Solar lentigo 07/06/2012 04/20/2015 Milia 07/06/2012 04/20/2015 Trigger middle finger of right hand 05/31/2012 04/19/2019 Trigger ring finger of right hand 05/31/2012 04/19/2019 Trigger little finger of left hand 05/03/2012 04/19/2019 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 Other seborrheic dermatitis 03/03/201203/25 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 04/20/2015 Actinic skin damage 03/03/2012 04/20/2015 Trigger middle finger of left hand 09/22/2011 04/19/2019 Trigger index finger of right hand 09/22/2011 04/19/2019 Trigger thumb of right hand 09/22/201103/25 Psoriatic arthritis 02/13/2011 05/12/2022 Paresthesia of skin 07/13/2007 06/05/2017 Enthesopathy of unspecified site 07/12/2007 04/19/2019 Pain in limb 06/01/2007 09/30/2016 Dizziness and giddiness 02/11/2007 05/24/20 07 Hypercalcemia 05/19/2006 05/24/2007 Disorder of kidney and ureter 05/19/2006 URETHRITIS OTHER SPECIFIED 01/13/200605/12 Esophageal reflux 11/20/2005 04/19/2019 documented as of this encounter (statuses as of 07/22/2022) [facility] History of Past illness Narrative* Problem Noted Date Resolved Date Gastroesophageal reflux disease 08/20/2018 10/07/2018 Overview: Added automatically from request for surgery [id number] Epigastric pain 08/20/2018 04/19/2019 Overview: Added automatically from request for surgery [id number] Hyperlipidemia 10/19/2015 03/31/2017 Trigger ring finger of left hand 06/05/2014 04/19/2019 Perioral dermatitis 03/22/2014 03/31/2017 Acne rosacea 03/22/2014 05/12/2022 Postinflammatory skin changes 03/22/2014 Perianal dermatitis 08/22/2013 05/12/2022 Anal burning 03/23/2013 04/20/2015 Irritated//Inflamed Seborrheic Keratosis 012 04/20/2015 Milial cyst 07/06/2012 04/20/2015 Other seborrheic keratosis 07/06/201204/20 Solar lentigo 07/06/2012 04/20/2015 Milia 07/06/2012 04/20/2015 Trigger middle finger of right hand 05/31/2012 04/19/2019 Trigger ring finger of right hand 05/31/2012 04/19/2019 Trigger little finger of left hand 05/03/2012 04/19/2019 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 Other seborrheic dermatitis 03/03/201203/25 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 04/20/2015 Actinic skin damage 03/03/2012 04/20/2015 Trigger middle finger of left hand 09/22/2011 04/19/2019 Trigger index finger of right hand 09/22/2011 04/19/2019 Trigger thumb of right hand 09/22/201103/25 Psoriatic arthritis 02/13/2011 05/12/2022 Paresthesia of skin 07/13/2007 06/05/2017 Enthesopathy of unspecified site 07/12/2007 04/19/2019 Pain in limb 06/01/2007 09/30/2016 Dizziness and giddiness 02/11/2007 05/24/20 07 Hypercalcemia 05/19/2006 05/24/2007 Disorder of kidney and ureter 05/19/2006 URETHRITIS OTHER SPECIFIED 01/13/200605/12 Esophageal reflux 11/20/2005 04/19/2019 documented as of this encounter (statuses as of 07/23/2022) [facility] of Past illness Narrative* Problem Noted Date Resolved Date Gastroesophageal reflux disease 08/20/2018 10/07/2018 Overview: Added automatically from request for surgery [id number] Epigastric pain 08/20/2018 04/19/2019 Overview: Added automatically from request for surgery [id number] Hyperlipidemia 10/19/2015 03/31/2017 Trigger ring finger of left hand 06/05/2014 04/19/2019 Perioral dermatitis 03/22/2014 03/31/2017 Acne rosacea 03/22/2014 05/12/2022 Postinflammatory skin changes 03/22/2014 Perianal dermatitis 08/22/2013 05/12/2022 Anal burning 03/23/2013 04/20/2015 Irritated//Inflamed Seborrheic Keratosis 012 04/20/2015 Milial cyst 07/06/2012 04/20/2015 Other seborrheic keratosis 07/06/201204/20 Solar lentigo 07/06/2012 04/20/2015 Milia 07/06/2012 04/20/2015 Trigger middle finger of right hand 05/31/2012 04/19/2019 Trigger ring finger of right hand 05/31/2012 04/19/2019 Trigger little finger of left hand 05/03/2012 04/19/2019 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 Other seborrheic dermatitis 03/03/201203/25 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 04/20/2015 Actinic skin damage 03/03/2012 04/20/2015 Trigger middle finger of left hand 09/22/2011 04/19/2019 Trigger index finger of right hand 09/22/2011 04/19/2019 Trigger thumb of right hand 09/22/201103/25 Psoriatic arthritis 02/13/2011 05/12/2022 Paresthesia of skin 07/13/2007 06/05/2017 Enthesopathy of unspecified site 07/12/2007 04/19/2019 Pain in limb 06/01/2007 09/30/2016 Dizziness and giddiness 02/11/2007 05/24/20 07 Hypercalcemia 05/19/2006 05/24/2007 Disorder of kidney and ureter 05/19/2006 URETHRITIS OTHER SPECIFIED 01/13/200605/12 Esophageal reflux 11/20/2005 04/19/2019 documented as of this encounter (statuses as of 07/23/2022) [facility] Past illness Narrative* Problem Noted Date Resolved Date Gastroesophageal reflux disease 08/20/2018 10/07/2018 Overview: Added automatically from request for surgery [id number] Epigastric pain 08/20/2018 04/19/2019 Overview: Added automatically from request for surgery [id number] Hyperlipidemia 10/19/2015 03/31/2017 Trigger ring finger of left hand 06/05/2014 04/19/2019 Perioral dermatitis 03/22/2014 03/31/2017 Acne rosacea 03/22/2014 05/12/2022 Postinflammatory skin changes 03/22/2014 Perianal dermatitis 08/22/2013 05/12/2022 Anal burning 03/23/2013 04/20/2015 Irritated//Inflamed Seborrheic Keratosis 012 04/20/2015 Milial cyst 07/06/2012 04/20/2015 Other seborrheic keratosis 07/06/201204/20 Solar lentigo 07/06/2012 04/20/2015 Milia 07/06/2012 04/20/2015 Trigger middle finger of right hand 05/31/2012 04/19/2019 Trigger ring finger of right hand 05/31/2012 04/19/2019 Trigger little finger of left hand 05/03/2012 04/19/2019 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 Other seborrheic dermatitis 03/03/201203/25 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 04/20/2015 Actinic skin damage 03/03/2012 04/20/2015 Trigger middle finger of left hand 09/22/2011 04/19/2019 Trigger index finger of right hand 09/22/2011 04/19/2019 Trigger thumb of right hand 09/22/201103/25 Psoriatic arthritis 02/13/2011 05/12/2022 Paresthesia of skin 07/13/2007 06/05/2017 Enthesopathy of unspecified site 07/12/2007 04/19/2019 Pain in limb 06/01/2007 09/30/2016 Dizziness and giddiness 02/11/2007 05/24/20 07 Hypercalcemia 05/19/2006 05/24/2007 Disorder of kidney and ureter 05/19/2006 URETHRITIS OTHER SPECIFIED 01/13/200605/12 Esophageal reflux 11/20/2005 04/19/2019 documented as of this encounter (statuses as of 08/13/2022) [facility] Past illness Narrative* Problem Noted Date Resolved Date Gastroesophageal reflux disease 08/20/2018 10/07/2018 Overview: Added automatically from request for surgery [id number] Epigastric pain 08/20/2018 04/19/2019 Overview: Added automatically from request for surgery [id number] Hyperlipidemia 10/19/2015 03/31/2017 Trigger ring finger of left hand 06/05/2014 04/19/2019 Perioral dermatitis 03/22/2014 03/31/2017 Acne rosacea 03/22/2014 05/12/2022 Postinflammatory skin changes 03/22/2014 Perianal dermatitis 08/22/2013 05/12/2022 Anal burning 03/23/2013 04/20/2015 Irritated//Inflamed Seborrheic Keratosis 012 04/20/2015 Milial cyst 07/06/2012 04/20/2015 Other seborrheic keratosis 07/06/201204/20 Solar lentigo 07/06/2012 04/20/2015 Milia 07/06/2012 04/20/2015 Trigger middle finger of right hand 05/31/2012 04/19/2019 Trigger ring finger of right hand 05/31/2012 04/19/2019 Trigger little finger of left hand 05/03/2012 04/19/2019 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 Other seborrheic dermatitis 03/03/201203/25 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 04/20/2015 Actinic skin damage 03/03/2012 04/20/2015 Trigger middle finger of left hand 09/22/2011 04/19/2019 Trigger index finger of right hand 09/22/2011 04/19/2019 Trigger thumb of right hand 09/22/201103/25 Psoriatic arthritis 02/13/2011 05/12/2022 Paresthesia of skin 07/13/2007 06/05/2017 Enthesopathy of unspecified site 07/12/2007 04/19/2019 Pain in limb 06/01/2007 09/30/2016 Dizziness and giddiness 02/11/2007 05/24/20 07 Hypercalcemia 05/19/2006 05/24/2007 Disorder of kidney and ureter 05/19/2006 URETHRITIS OTHER SPECIFIED 01/13/200605/12 Esophageal reflux 11/20/2005 04/19/2019 documented as of this encounter (statuses as of 08/13/2022) [facility] Past illness Narrative* Problem Noted Date Resolved Date Gastroesophageal reflux disease 08/20/2018 10/07/2018 Overview: Added automatically from request for surgery [id number] Epigastric pain 08/20/2018 04/19/2019 Overview: Added automatically from request for surgery [id number] Hyperlipidemia 10/19/2015 03/31/2017 Trigger ring finger of left hand 06/05/2014 04/19/2019 Perioral dermatitis 03/22/2014 03/31/2017 Acne rosacea 03/22/2014 05/12/2022 Postinflammatory skin changes 03/22/2014 Perianal dermatitis 08/22/2013 05/12/2022 Anal burning 03/23/2013 04/20/2015 Irritated//Inflamed Seborrheic Keratosis 012 04/20/2015 Milial cyst 07/06/2012 04/20/2015 Other seborrheic keratosis 07/06/201204/20 Solar lentigo 07/06/2012 04/20/2015 Milia 07/06/2012 04/20/2015 Trigger middle finger of right hand 05/31/2012 04/19/2019 Trigger ring finger of right hand 05/31/2012 04/19/2019 Trigger little finger of left hand 05/03/2012 04/19/2019 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 Other seborrheic dermatitis 03/03/201203/25 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 04/20/2015 Actinic skin damage 03/03/2012 04/20/2015 Trigger middle finger of left hand 09/22/2011 04/19/2019 Trigger index finger of right hand 09/22/2011 04/19/2019 Trigger thumb of right hand 09/22/201103/25 Psoriatic arthritis 02/13/2011 05/12/2022 Paresthesia of skin 07/13/2007 06/05/2017 Enthesopathy of unspecified site 07/12/2007 04/19/2019 Pain in limb 06/01/2007 09/30/2016 Dizziness and giddiness 02/11/2007 05/24/20 07 Hypercalcemia 05/19/2006 05/24/2007 Disorder of kidney and ureter 05/19/2006 URETHRITIS OTHER SPECIFIED 01/13/200605/12 Esophageal reflux 11/20/2005 04/19/2019 documented as of this encounter (statuses as of 08/13/2022) [facility] illness Narrative* Problem Noted Date Resolved Date Gastroesophageal reflux disease 08/20/2018 10/07/2018 Overview: Added automatically from request for surgery [id number] Epigastric pain 08/20/2018 04/19/2019 Overview: Added automatically from request for surgery [id number] Hyperlipidemia 10/19/2015 03/31/2017 Trigger ring finger of left hand 06/05/2014 04/19/2019 Perioral dermatitis 03/22/2014 03/31/2017 Acne rosacea 03/22/2014 05/12/2022 Postinflammatory skin changes 03/22/2014 Perianal dermatitis 08/22/2013 05/12/2022 Anal burning 03/23/2013 04/20/2015 Irritated//Inflamed Seborrheic Keratosis 012 04/20/2015 Milial cyst 07/06/2012 04/20/2015 Other seborrheic keratosis 07/06/201204/20 Solar lentigo 07/06/2012 04/20/2015 Milia 07/06/2012 04/20/2015 Trigger middle finger of right hand 05/31/2012 04/19/2019 Trigger ring finger of right hand 05/31/2012 04/19/2019 Trigger little finger of left hand 05/03/2012 04/19/2019 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 Other seborrheic dermatitis 03/03/201203/25 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 04/20/2015 Actinic skin damage 03/03/2012 04/20/2015 Trigger middle finger of left hand 09/22/2011 04/19/2019 Trigger index finger of right hand 09/22/2011 04/19/2019 Trigger thumb of right hand 09/22/201103/25 Psoriatic arthritis 02/13/2011 05/12/2022 Paresthesia of skin 07/13/2007 06/05/2017 Enthesopathy of unspecified site 07/12/2007 04/19/2019 Pain in limb 06/01/2007 09/30/2016 Dizziness and giddiness 02/11/2007 05/24/20 07 Hypercalcemia 05/19/2006 05/24/2007 Disorder of kidney and ureter 05/19/2006 URETHRITIS OTHER SPECIFIED 01/13/200605/12 Esophageal reflux 11/20/2005 04/19/2019 documented as of this encounter (statuses as of 08/29/2022) [facility]12[facility]2018 History of Past illness Narrative* Problem Noted Date Resolved Date Gastroesophageal reflux disease 08/20/2018 10/07/2018 Overview: Added automatically from request for surgery [id number] Epigastric pain 08/20/2018 04/19/2019 Overview: Added automatically from request for surgery [id number] Hyperlipidemia 10/19/2015 03/31/2017 Trigger ring finger of left hand 06/05/2014 04/19/2019 Perioral dermatitis 03/22/2014 03/31/2017 Acne rosacea 03/22/2014 05/12/2022 Postinflammatory skin changes 03/22/2014 Perianal dermatitis 08/22/2013 05/12/2022 Anal burning 03/23/2013 04/20/2015 Irritated//Inflamed Seborrheic Keratosis 012 04/20/2015 Milial cyst 07/06/2012 04/20/2015 Other seborrheic keratosis 07/06/201204/20 Solar lentigo 07/06/2012 04/20/2015 Milia 07/06/2012 04/20/2015 Trigger middle finger of right hand 05/31/2012 04/19/2019 Trigger ring finger of right hand 05/31/2012 04/19/2019 Trigger little finger of left hand 05/03/2012 04/19/2019 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 Other seborrheic dermatitis 03/03/201203/25 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 04/20/2015 Actinic skin damage 03/03/2012 04/20/2015 Trigger middle finger of left hand 09/22/2011 04/19/2019 Trigger index finger of right hand 09/22/2011 04/19/2019 Trigger thumb of right hand 09/22/201103/25 Psoriatic arthritis 02/13/2011 05/12/2022 Paresthesia of skin 07/13/2007 06/05/2017 Enthesopathy of unspecified site 07/12/2007 04/19/2019 Pain in limb 06/01/2007 09/30/2016 Dizziness and giddiness 02/11/2007 05/24/20 07 Hypercalcemia 05/19/2006 05/24/2007 Disorder of kidney and ureter 05/19/2006 URETHRITIS OTHER SPECIFIED 01/13/200605/12 Esophageal reflux 11/20/2005 04/19/2019 documented as of this encounter (statuses as of 08/29/2022) [facility] History of Past illness Narrative* Problem Noted Date Resolved Date Gastroesophageal reflux disease 08/20/2018 10/07/2018 Overview: Added automatically from request for surgery [id number] Epigastric pain 08/20/2018 04/19/2019 Overview: Added automatically from request for surgery [id number] Hyperlipidemia 10/19/2015 03/31/2017 Trigger ring finger of left hand 06/05/2014 04/19/2019 Perioral dermatitis 03/22/2014 03/31/2017 Acne rosacea 03/22/2014 05/12/2022 Postinflammatory skin changes 03/22/2014 Perianal dermatitis 08/22/2013 05/12/2022 Anal burning 03/23/2013 04/20/2015 Irritated//Inflamed Seborrheic Keratosis 012 04/20/2015 Milial cyst 07/06/2012 04/20/2015 Other seborrheic keratosis 07/06/201204/20 Solar lentigo 07/06/2012 04/20/2015 Milia 07/06/2012 04/20/2015 Trigger middle finger of right hand 05/31/2012 04/19/2019 Trigger ring finger of right hand 05/31/2012 04/19/2019 Trigger little finger of left hand 05/03/2012 04/19/2019 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 Other seborrheic dermatitis 03/03/201203/25 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 04/20/2015 Actinic skin damage 03/03/2012 04/20/2015 Trigger middle finger of left hand 09/22/2011 04/19/2019 Trigger index finger of right hand 09/22/2011 04/19/2019 Trigger thumb of right hand 09/22/201103/25 Psoriatic arthritis 02/13/2011 05/12/2022 Paresthesia of skin 07/13/2007 06/05/2017 Enthesopathy of unspecified site 07/12/2007 04/19/2019 Pain in limb 06/01/2007 09/30/2016 Dizziness and giddiness 02/11/2007 05/24/20 07 Hypercalcemia 05/19/2006 05/24/2007 Disorder of kidney and ureter 05/19/2006 URETHRITIS OTHER SPECIFIED 01/13/200605/12 Esophageal reflux 11/20/2005 04/19/2019 documented as of this encounter (statuses as of 09/01/2022) [facility] History of Past illness Narrative* Problem Noted Date Resolved Date Gastroesophageal reflux disease 08/20/2018 10/07/2018 Overview: Added automatically from request for surgery [id number] Epigastric pain 08/20/2018 04/19/2019 Overview: Added automatically from request for surgery [id number] Hyperlipidemia 10/19/2015 03/31/2017 Trigger ring finger of left hand 06/05/2014 04/19/2019 Perioral dermatitis 03/22/2014 03/31/2017 Acne rosacea 03/22/2014 05/12/2022 Postinflammatory skin changes 03/22/2014 Perianal dermatitis 08/22/2013 05/12/2022 Anal burning 03/23/2013 04/20/2015 Irritated//Inflamed Seborrheic Keratosis 012 04/20/2015 Milial cyst 07/06/2012 04/20/2015 Other seborrheic keratosis 07/06/201204/20 Solar lentigo 07/06/2012 04/20/2015 Milia 07/06/2012 04/20/2015 Trigger middle finger of right hand 05/31/2012 04/19/2019 Trigger ring finger of right hand 05/31/2012 04/19/2019 Trigger little finger of left hand 05/03/2012 04/19/2019 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 Other seborrheic dermatitis 03/03/201203/25 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 04/20/2015 Actinic skin damage 03/03/2012 04/20/2015 Trigger middle finger of left hand 09/22/2011 04/19/2019 Trigger index finger of right hand 09/22/2011 04/19/2019 Trigger thumb of right hand 09/22/201103/25 Psoriatic arthritis 02/13/2011 05/12/2022 Paresthesia of skin 07/13/2007 06/05/2017 Enthesopathy of unspecified site 07/12/2007 04/19/2019 Pain in limb 06/01/2007 09/30/2016 Dizziness and giddiness 02/11/2007 05/24/20 07 Hypercalcemia 05/19/2006 05/24/2007 Disorder of kidney and ureter 05/19/2006 URETHRITIS OTHER SPECIFIED 01/13/200605/12 Esophageal reflux 11/20/2005 04/19/2019 documented as of this encounter (statuses as of 09/24/2022) [facility] History of Past illness Narrative* Problem Noted Date Resolved Date Gastroesophageal reflux disease 08/20/2018 10/07/2018 Overview: Added automatically from request for surgery [id number] Epigastric pain 08/20/2018 04/19/2019 Overview: Added automatically from request for surgery [id number] Hyperlipidemia 10/19/2015 03/31/2017 Trigger ring finger of left hand 06/05/2014 04/19/2019 Perioral dermatitis 03/22/2014 03/31/2017 Acne rosacea 03/22/2014 05/12/2022 Postinflammatory skin changes 03/22/2014 Perianal dermatitis 08/22/2013 05/12/2022 Anal burning 03/23/2013 04/20/2015 Irritated//Inflamed Seborrheic Keratosis 012 04/20/2015 Milial cyst 07/06/2012 04/20/2015 Other seborrheic keratosis 07/06/201204/20 Solar lentigo 07/06/2012 04/20/2015 Milia 07/06/2012 04/20/2015 Trigger middle finger of right hand 05/31/2012 04/19/2019 Trigger ring finger of right hand 05/31/2012 04/19/2019 Trigger little finger of left hand 05/03/2012 04/19/2019 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 Other seborrheic dermatitis 03/03/201203/25 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 04/20/2015 Actinic skin damage 03/03/2012 04/20/2015 Trigger middle finger of left hand 09/22/2011 04/19/2019 Trigger index finger of right hand 09/22/2011 04/19/2019 Trigger thumb of right hand 09/22/201103/25 Psoriatic arthritis 02/13/2011 05/12/2022 Paresthesia of skin 07/13/2007 06/05/2017 Enthesopathy of unspecified site 07/12/2007 04/19/2019 Pain in limb 06/01/2007 09/30/2016 Dizziness and giddiness 02/11/2007 05/24/20 07 Hypercalcemia 05/19/2006 05/24/2007 Disorder of kidney and ureter 05/19/2006 URETHRITIS OTHER SPECIFIED 01/13/200605/12 Esophageal reflux 11/20/2005 04/19/2019 documented as of this encounter (statuses as of 09/30/2022) [facility] History of Past illness Narrative* Problem Noted Date Resolved Date Gastroesophageal reflux disease 08/20/2018 10/07/2018 Overview: Added automatically from request for surgery [id number] Epigastric pain 08/20/2018 04/19/2019 Overview: Added automatically from request for surgery [id number] Hyperlipidemia 10/19/2015 03/31/2017 Trigger ring finger of left hand 06/05/2014 04/19/2019 Perioral dermatitis 03/22/2014 03/31/2017 Acne rosacea 03/22/2014 05/12/2022 Postinflammatory skin changes 03/22/2014 Perianal dermatitis 08/22/2013 05/12/2022 Anal burning 03/23/2013 04/20/2015 Irritated//Inflamed Seborrheic Keratosis 012 04/20/2015 Milial cyst 07/06/2012 04/20/2015 Other seborrheic keratosis 07/06/201204/20 Solar lentigo 07/06/2012 04/20/2015 Milia 07/06/2012 04/20/2015 Trigger middle finger of right hand 05/31/2012 04/19/2019 Trigger ring finger of right hand 05/31/2012 04/19/2019 Trigger little finger of left hand 05/03/2012 04/19/2019 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 Other seborrheic dermatitis 03/03/201203/25 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 04/20/2015 Actinic skin damage 03/03/2012 04/20/2015 Trigger middle finger of left hand 09/22/2011 04/19/2019 Trigger index finger of right hand 09/22/2011 04/19/2019 Trigger thumb of right hand 09/22/201103/25 Psoriatic arthritis 02/13/2011 05/12/2022 Paresthesia of skin 07/13/2007 06/05/2017 Enthesopathy of unspecified site 07/12/2007 04/19/2019 Pain in limb 06/01/2007 09/30/2016 Dizziness and giddiness 02/11/2007 05/24/20 07 Hypercalcemia 05/19/2006 05/24/2007 Disorder of kidney and ureter 05/19/2006 URETHRITIS OTHER SPECIFIED 01/13/200605/12 Esophageal reflux 11/20/2005 04/19/2019 documented as of this encounter (statuses as of 10/31/2022) [facility] History of Past illness Narrative* Problem Noted Date Resolved Date Gastroesophageal reflux disease 08/20/2018 10/07/2018 Overview: Added automatically from request for surgery [id number] Epigastric pain 08/20/2018 04/19/2019 Overview: Added automatically from request for surgery [id number] Hyperlipidemia 10/19/2015 03/31/2017 Trigger ring finger of left hand 06/05/2014 04/19/2019 Perioral dermatitis 03/22/2014 03/31/2017 Acne rosacea 03/22/2014 05/12/2022 Postinflammatory skin changes 03/22/2014 Perianal dermatitis 08/22/2013 05/12/2022 Anal burning 03/23/2013 04/20/2015 Irritated//Inflamed Seborrheic Keratosis 012 04/20/2015 Milial cyst 07/06/2012 04/20/2015 Other seborrheic keratosis 07/06/201204/20 Solar lentigo 07/06/2012 04/20/2015 Milia 07/06/2012 04/20/2015 Trigger middle finger of right hand 05/31/2012 04/19/2019 Trigger ring finger of right hand 05/31/2012 04/19/2019 Trigger little finger of left hand 05/03/2012 04/19/2019 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 Other seborrheic dermatitis 03/03/201203/25 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 04/20/2015 Actinic skin damage 03/03/2012 04/20/2015 Trigger middle finger of left hand 09/22/2011 04/19/2019 Trigger index finger of right hand 09/22/2011 04/19/2019 Trigger thumb of right hand 09/22/201103/25 Psoriatic arthritis 02/13/2011 05/12/2022 Paresthesia of skin 07/13/2007 06/05/2017 Enthesopathy of unspecified site 07/12/2007 04/19/2019 Pain in limb 06/01/2007 09/30/2016 Dizziness and giddiness 02/11/2007 05/24/20 07 Hypercalcemia 05/19/2006 05/24/2007 Disorder of kidney and ureter 05/19/2006 URETHRITIS OTHER SPECIFIED 01/13/200605/12 Esophageal reflux 11/20/2005 04/19/2019 documented as of this encounter (statuses as of 11/11/2022) [facility] History of Past illness Narrative* Problem Noted Date Resolved Date Gastroesophageal reflux disease 08/20/2018 10/07/2018 Overview: Added automatically from request for surgery [id number] Epigastric pain 08/20/2018 04/19/2019 Overview: Added automatically from request for surgery [id number] Hyperlipidemia 10/19/2015 03/31/2017 Trigger ring finger of left hand 06/05/2014 04/19/2019 Perioral dermatitis 03/22/2014 03/31/2017 Acne rosacea 03/22/2014 05/12/2022 Postinflammatory skin changes 03/22/2014 Perianal dermatitis 08/22/2013 05/12/2022 Anal burning 03/23/2013 04/20/2015 Irritated//Inflamed Seborrheic Keratosis 012 04/20/2015 Milial cyst 07/06/2012 04/20/2015 Other seborrheic keratosis 07/06/201204/20 Solar lentigo 07/06/2012 04/20/2015 Milia 07/06/2012 04/20/2015 Trigger middle finger of right hand 05/31/2012 04/19/2019 Trigger ring finger of right hand 05/31/2012 04/19/2019 Trigger little finger of left hand 05/03/2012 04/19/2019 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 Other seborrheic dermatitis 03/03/201203/25 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 04/20/2015 Actinic skin damage 03/03/2012 04/20/2015 Trigger middle finger of left hand 09/22/2011 04/19/2019 Trigger index finger of right hand 09/22/2011 04/19/2019 Trigger thumb of right hand 09/22/201103/25 Psoriatic arthritis 02/13/2011 05/12/2022 Paresthesia of skin 07/13/2007 06/05/2017 Enthesopathy of unspecified site 07/12/2007 04/19/2019 Pain in limb 06/01/2007 09/30/2016 Dizziness and giddiness 02/11/2007 05/24/20 07 Hypercalcemia 05/19/2006 05/24/2007 Disorder of kidney and ureter 05/19/2006 URETHRITIS OTHER SPECIFIED 01/13/200605/12 Esophageal reflux 11/20/2005 04/19/2019 documented as of this encounter (statuses as of 12/30/2022) [facility] History of Past illness Narrative* Problem Noted Date Resolved Date Gastroesophageal reflux disease 08/20/2018 10/07/2018 Overview: Added automatically from request for surgery [id number] Epigastric pain 08/20/2018 04/19/2019 Overview: Added automatically from request for surgery [id number] Hyperlipidemia 10/19/2015 03/31/2017 Trigger ring finger of left hand 06/05/2014 04/19/2019 Perioral dermatitis 03/22/2014 03/31/2017 Acne rosacea 03/22/2014 05/12/2022 Postinflammatory skin changes 03/22/2014 Perianal dermatitis 08/22/2013 05/12/2022 Anal burning 03/23/2013 04/20/2015 Irritated//Inflamed Seborrheic Keratosis 012 04/20/2015 Milial cyst 07/06/2012 04/20/2015 Other seborrheic keratosis 07/06/201204/20 Solar lentigo 07/06/2012 04/20/2015 Milia 07/06/2012 04/20/2015 Trigger middle finger of right hand 05/31/2012 04/19/2019 Trigger ring finger of right hand 05/31/2012 04/19/2019 Trigger little finger of left hand 05/03/2012 04/19/2019 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 Other seborrheic dermatitis 03/03/201203/25 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 04/20/2015 Actinic skin damage 03/03/2012 04/20/2015 Trigger middle finger of left hand 09/22/2011 04/19/2019 Trigger index finger of right hand 09/22/2011 04/19/2019 Trigger thumb of right hand 09/22/201103/25 Psoriatic arthritis 02/13/2011 05/12/2022 Paresthesia of skin 07/13/2007 06/05/2017 Enthesopathy of unspecified site 07/12/2007 04/19/2019 Pain in limb 06/01/2007 09/30/2016 Dizziness and giddiness 02/11/2007 05/24/20 Hypercalcemia 05/19/2006 05/24/2007 Anemia of chronic renal failure, stage 2 (mild) 05/19/2006 01/23/2023 Disorder of kidney and ureter 05/19/2006 URETHRITIS OTHER SPECIFIED 01/13/200605/12 Esophageal reflux 11/20/2005 04/19/2019 documented as of this encounter (statuses as of 01/23/2023) [facility] of Past illness Narrative* Problem Noted Date Resolved Date Gastroesophageal reflux disease 08/20/2018 10/07/2018 Overview: Added automatically from request for surgery [id number] Epigastric pain 08/20/2018 04/19/2019 Overview: Added automatically from request for surgery [id number] Hyperlipidemia 10/19/2015 03/31/2017 Trigger ring finger of left hand 06/05/2014 04/19/2019 Perioral dermatitis 03/22/2014 03/31/2017 Acne rosacea 03/22/2014 05/12/2022 Postinflammatory skin changes 03/22/2014 Perianal dermatitis 08/22/2013 05/12/2022 Anal burning 03/23/2013 04/20/2015 Irritated//Inflamed Seborrheic Keratosis 012 04/20/2015 Milial cyst 07/06/2012 04/20/2015 Other seborrheic keratosis 07/06/201204/20 Solar lentigo 07/06/2012 04/20/2015 Milia 07/06/2012 04/20/2015 Trigger middle finger of right hand 05/31/2012 04/19/2019 Trigger ring finger of right hand 05/31/2012 04/19/2019 Trigger little finger of left hand 05/03/2012 04/19/2019 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 Other seborrheic dermatitis 03/03/201203/25 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 04/20/2015 Actinic skin damage 03/03/2012 04/20/2015 Trigger middle finger of left hand 09/22/2011 04/19/2019 Trigger index finger of right hand 09/22/2011 04/19/2019 Trigger thumb of right hand 09/22/201103/25 Psoriatic arthritis 02/13/2011 05/12/2022 Paresthesia of skin 07/13/2007 06/05/2017 Enthesopathy of unspecified site 07/12/2007 04/19/2019 Pain in limb 06/01/2007 09/30/2016 Dizziness and giddiness 02/11/2007 05/24/20 07 Hypercalcemia 05/19/2006 05/24/2007 Anemia of chronic renal failure, stage 2 (mild) 05/19/2006 01/23/2023 Disorder of kidney and ureter 05/19/2006 URETHRITIS OTHER SPECIFIED 01/13/200605/12 Esophageal reflux 11/20/2005 04/19/2019 documented as of this encounter (statuses as of 01/26/2023) [facility] of Past illness Narrative* Problem Noted Date Resolved Date Gastroesophageal reflux disease 08/20/2018 10/07/2018 Overview: Added automatically from request for surgery [id number] Epigastric pain 08/20/2018 04/19/2019 Overview: Added automatically from request for surgery [id number] Hyperlipidemia 10/19/2015 03/31/2017 Trigger ring finger of left hand 06/05/2014 04/19/2019 Perioral dermatitis 03/22/2014 03/31/2017 Acne rosacea 03/22/2014 05/12/2022 Postinflammatory skin changes 03/22/2014 Perianal dermatitis 08/22/2013 05/12/2022 Anal burning 03/23/2013 04/20/2015 Irritated//Inflamed Seborrheic Keratosis 012 04/20/2015 Milial cyst 07/06/2012 04/20/2015 Other seborrheic keratosis 07/06/201204/20 Solar lentigo 07/06/2012 04/20/2015 Milia 07/06/2012 04/20/2015 Trigger middle finger of right hand 05/31/2012 04/19/2019 Trigger ring finger of right hand 05/31/2012 04/19/2019 Trigger little finger of left hand 05/03/2012 04/19/2019 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 Other seborrheic dermatitis 03/03/201203/25 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 04/20/2015 Actinic skin damage 03/03/2012 04/20/2015 Trigger middle finger of left hand 09/22/2011 04/19/2019 Trigger index finger of right hand 09/22/2011 04/19/2019 Trigger thumb of right hand 09/22/201103/25 Psoriatic arthritis 02/13/2011 05/12/2022 Paresthesia of skin 07/13/2007 06/05/2017 Enthesopathy of unspecified site 07/12/2007 04/19/2019 Pain in limb 06/01/2007 09/30/2016 Dizziness and giddiness 02/11/2007 05/24/20 07 Hypercalcemia 05/19/2006 05/24/2007 Anemia of chronic renal failure, stage 2 (mild) 05/19/2006 01/23/2023 Disorder of kidney and ureter 05/19/2006 URETHRITIS OTHER SPECIFIED 01/13/200605/12 Esophageal reflux 11/20/2005 04/19/2019 documented as of this encounter (statuses as of 02/03/2023) [facility] illness Narrative* Problem Noted Date Resolved Date Gastroesophageal reflux disease 08/20/2018 10/07/2018 Overview: Added automatically from request for surgery [id number] Epigastric pain 08/20/2018 04/19/2019 Overview: Added automatically from request for surgery [id number] Hyperlipidemia 10/19/2015 03/31/2017 Trigger ring finger of left hand 06/05/2014 04/19/2019 Perioral dermatitis 03/22/2014 03/31/2017 Acne rosacea 03/22/2014 05/12/2022 Postinflammatory skin changes 03/22/2014 Perianal dermatitis 08/22/2013 05/12/2022 Anal burning 03/23/2013 04/20/2015 Irritated//Inflamed Seborrheic Keratosis 012 04/20/2015 Milial cyst 07/06/2012 04/20/2015 Other seborrheic keratosis 07/06/201204/20 Solar lentigo 07/06/2012 04/20/2015 Milia 07/06/2012 04/20/2015 Trigger middle finger of right hand 05/31/2012 04/19/2019 Trigger ring finger of right hand 05/31/2012 04/19/2019 Trigger little finger of left hand 05/03/2012 04/19/2019 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 Other seborrheic dermatitis 03/03/201203/25 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 04/20/2015 Actinic skin damage 03/03/2012 04/20/2015 Trigger middle finger of left hand 09/22/2011 04/19/2019 Trigger index finger of right hand 09/22/2011 04/19/2019 Trigger thumb of right hand 09/22/201103/25 Psoriatic arthritis 02/13/2011 05/12/2022 Paresthesia of skin 07/13/2007 06/05/2017 Enthesopathy of unspecified site 07/12/2007 04/19/2019 Pain in limb 06/01/2007 09/30/2016 Dizziness and giddiness 02/11/2007 05/24/20 07 Hypercalcemia 05/19/2006 05/24/2007 Anemia of chronic renal failure, stage 2 (mild) 05/19/2006 01/23/2023 Disorder of kidney and ureter 05/19/2006 URETHRITIS OTHER SPECIFIED 01/13/200605/12 Esophageal reflux 11/20/2005 04/19/2019 documented as of this encounter (statuses as of 02/09/2023) [facility] Narrative* Problem Noted Date Resolved Date Gastroesophageal reflux disease 08/20/2018 10/07/2018 Overview: Added automatically from request for surgery [id number] Epigastric pain 08/20/2018 04/19/2019 Overview: Added automatically from request for surgery [id number] Hyperlipidemia 10/19/2015 03/31/2017 Trigger ring finger of left hand 06/05/2014 04/19/2019 Perioral dermatitis 03/22/2014 03/31/2017 Acne rosacea 03/22/2014 05/12/2022 Postinflammatory skin changes 03/22/2014 Perianal dermatitis 08/22/2013 05/12/2022 Anal burning 03/23/2013 04/20/2015 Irritated//Inflamed Seborrheic Keratosis 012 04/20/2015 Milial cyst 07/06/2012 04/20/2015 Other seborrheic keratosis 07/06/201204/20 Solar lentigo 07/06/2012 04/20/2015 Milia 07/06/2012 04/20/2015 Trigger middle finger of right hand 05/31/2012 04/19/2019 Trigger ring finger of right hand 05/31/2012 04/19/2019 Trigger little finger of left hand 05/03/2012 04/19/2019 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 Other seborrheic dermatitis 03/03/201203/25 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 04/20/2015 Actinic skin damage 03/03/2012 04/20/2015 Trigger middle finger of left hand 09/22/2011 04/19/2019 Trigger index finger of right hand 09/22/2011 04/19/2019 Trigger thumb of right hand 09/22/201103/25 Psoriatic arthritis 02/13/2011 05/12/2022 Paresthesia of skin 07/13/2007 06/05/2017 Enthesopathy of unspecified site 07/12/2007 04/19/2019 Pain in limb 06/01/2007 09/30/2016 Dizziness and giddiness 02/11/2007 05/24/20 07 Hypercalcemia 05/19/2006 05/24/2007 Anemia of chronic renal failure, stage 2 (mild) 05/19/2006 01/23/2023 Disorder of kidney and ureter 05/19/2006 URETHRITIS OTHER SPECIFIED 01/13/200605/12 Esophageal reflux 11/20/2005 04/19/2019 documented as of this encounter (statuses as of 02/20/2023) [facility] Narrative* Problem Noted Date Diagnosed Date Resolved Date Gastroesophageal reflux disease 08/20/2018 10/07/2018 Overview: Added automatically from request for surgery [id number] Epigastric pain 08/20/2018 04/19/2019 Overview: Added automatically from request for surgery [id number] Hyperlipidemia 10/19/2015 03/31/2017 Trigger ring finger of left hand 06/05/2014 04/19/2019 Perioral dermatitis 03/22/2014 03/31/20 17 Acne rosacea 03/22/2014 05/12/2022 Postinflammatory skin changes 03/22/2014 04/20/2015 Perianal dermatitis 08/22/2013 05/12/20 22 Anal burning 03/23/2013 04/20/2015 Irritated//Inflamed Seborrheic Keratosis 07/06/2012 04/20/2015 Milial cyst 07/06/2012 04/20/2015 Other seborrheic keratosis 07/06/2012 0 04/20/2015 Solar lentigo 07/06/2012 04/20/2015 Milia 07/06/2012 04/20/2015 Trigger middle finger of right hand 05/31/2012 04/19/2019 Trigger ring finger of right hand 05/31/2012 04/19/2019 Trigger little finger of left hand 05/03/2012 04/19/2019 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 Other seborrheic dermatitis 03/03/2012 04/20/2015 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 04/20/2015 Actinic skin damage 03/03/2012 04/20/20 15 Trigger middle finger of left hand 09/22/2011 04/19/2019 Trigger index finger of right hand 09/22/2011 04/19/2019 Trigger thumb of right hand 09/22/2011 04/19/2019 Psoriatic arthritis 02/13/2011 05/12/20 22 Paresthesia of skin 07/13/2007 06/05/20 17 Enthesopathy of unspecified site 07/12/2007 04/19/2019 Pain in limb 06/01/2007 09/30/2016 Dizziness and giddiness 02/11/2007 10/08/2006 Hypercalcemia 05/19/2006 05/24/2007 Anemia of chronic renal fail ure, stage 2 (mild) 05/19/2006 01/23/2023 Disorder of kidney and ureter 05/19/2006 05/12/2022 URETHRITIS OTHER SPECIFIED 01/13/2006 0 05/12/2022 Esophageal reflux 11/20/2005 04/19/2019 documented as of this encounter (statuses as of 02/28/2023) [facility]* Problem Noted Date Diagnosed Date Resolved Date Gastroesophageal reflux disease 08/20/2018 10/07/2018 Overview: Added automatically from request for surgery [id number] Epigastric pain 08/20/2018 04/19/2019 Overview: Added automatically from request for surgery [id number] Hyperlipidemia 10/19/2015 03/31/2017 Trigger ring finger of left hand 06/05/2014 04/19/2019 Perioral dermatitis 03/22/2014 03/31/20 17 Acne rosacea 03/22/2014 05/12/2022 Postinflammatory skin changes 03/22/2014 04/20/2015 Perianal dermatitis 08/22/2013 05/12/20 22 Anal burning 03/23/2013 04/20/2015 Irritated//Inflamed Seborrheic Keratosis 07/06/2012 04/20/2015 Milial cyst 07/06/2012 04/20/2015 Other seborrheic keratosis 07/06/2012 0 04/20/2015 Solar lentigo 07/06/2012 04/20/2015 Milia 07/06/2012 04/20/2015 Trigger middle finger of right hand 05/31/2012 04/19/2019 Trigger ring finger of right hand 05/31/2012 04/19/2019 Trigger little finger of left hand 05/03/2012 04/19/2019 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 Other seborrheic dermatitis 03/03/2012 04/20/2015 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 04/20/2015 Actinic skin damage 03/03/2012 04/20/20 15 Trigger middle finger of left hand 09/22/2011 04/19/2019 Trigger index finger of right hand 09/22/2011 04/19/2019 Trigger thumb of right hand 09/22/2011 04/19/2019 Psoriatic arthritis 02/13/2011 05/12/20 22 Paresthesia of skin 07/13/2007 06/05/20 17 Enthesopathy of unspecified site 07/12/2007 04/19/2019 Pain in limb 06/01/2007 09/30/2016 Dizziness and giddiness 02/11/2007 10/08/2006 Hypercalcemia 05/19/2006 05/24/2007 Anemia of chronic renal fail ure, stage 2 (mild) 05/19/2006 01/23/2023 Disorder of kidney and ureter 05/19/2006 05/12/2022 URETHRITIS OTHER SPECIFIED 01/13/2006 0 05/12/2022 Esophageal reflux 11/20/2005 04/19/2019 documented as of this encounter (statuses as of 03/20/2023) [facility] History of Past illness Narrative* Problem Noted Date Diagnosed Date Resolved Date Gastroesophageal reflux disease 08/20/2018 10/07/2018 Overview: Added automatically from request for surgery [id number] Epigastric pain 08/20/2018 04/19/2019 Overview: Added automatically from request for surgery [id number] Hyperlipidemia 10/19/2015 03/31/2017 Trigger ring finger of left hand 06/05/2014 04/19/2019 Perioral dermatitis 03/22/2014 03/31/20 17 Acne rosacea 03/22/2014 05/12/2022 Postinflammatory skin changes 03/22/2014 04/20/2015 Perianal dermatitis 08/22/2013 05/12/20 22 Anal burning 03/23/2013 04/20/2015 Irritated//Inflamed Seborrheic Keratosis 07/06/2012 04/20/2015 Milial cyst 07/06/2012 04/20/2015 Other seborrheic keratosis 07/06/2012 0 04/20/2015 Solar lentigo 07/06/2012 04/20/2015 Milia 07/06/2012 04/20/2015 Trigger middle finger of right hand 05/31/2012 04/19/2019 Trigger ring finger of right hand 05/31/2012 04/19/2019 Trigger little finger of left hand 05/03/2012 04/19/2019 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 Other seborrheic dermatitis 03/03/2012 04/20/2015 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 04/20/2015 Actinic skin damage 03/03/2012 04/20/20 15 Trigger middle finger of left hand 09/22/2011 04/19/2019 Trigger index finger of right hand 09/22/2011 04/19/2019 Trigger thumb of right hand 09/22/2011 04/19/2019 Psoriatic arthritis 02/13/2011 05/12/20 22 Paresthesia of skin 07/13/2007 06/05/20 17 Enthesopathy of unspecified site 07/12/2007 04/19/2019 Pain in limb 06/01/2007 09/30/2016 Dizziness and giddiness 02/11/2007 1008/2006 Hypercalcemia 05/19/2006 05/24/2007 Anemia of chronic renal fail ure, stage 2 (mild) 05/19/2006 01/23/2023 Disorder of kidney and ureter 05/19/2006 05/12/2022 URETHRITIS OTHER SPECIFIED 01/13/2006 0 05/12/2022 Esophageal reflux 11/20/2005 04/19/2019 documented as of this encounter (statuses as of 03/24/2023) [facility] History of Past illness Narrative* Problem Noted Date Diagnosed Date Resolved Date Gastroesophageal reflux disease 08/20/2018 10/07/2018 Overview: Added automatically from request for surgery [id number] Epigastric pain 08/20/2018 04/19/2019 Overview: Added automatically from request for surgery [id number] Hyperlipidemia 10/19/2015 03/31/2017 Trigger ring finger of left hand 06/05/2014 04/19/2019 Perioral dermatitis 03/22/2014 03/31/20 17 Acne rosacea 03/22/2014 05/12/2022 Postinflammatory skin changes 03/22/2014 04/20/2015 Perianal dermatitis 08/22/2013 05/12/20 22 Anal burning 03/23/2013 04/20/2015 Irritated//Inflamed Seborrheic Keratosis 07/06/2012 04/20/2015 Milial cyst 07/06/2012 04/20/2015 Other seborrheic keratosis 07/06/2012 0 04/20/2015 Solar lentigo 07/06/2012 04/20/2015 Milia 07/06/2012 04/20/2015 Trigger middle finger of right hand 05/31/2012 04/19/2019 Trigger ring finger of right hand 05/31/2012 04/19/2019 Trigger little finger of left hand 05/03/2012 04/19/2019 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 Other seborrheic dermatitis 03/03/2012 04/20/2015 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 04/20/2015 Actinic skin damage 03/03/2012 04/20/20 15 Trigger middle finger of left hand 09/22/2011 04/19/2019 Trigger index finger of right hand 09/22/2011 04/19/2019 Trigger thumb of right hand 09/22/2011 04/19/2019 Psoriatic arthritis 02/13/2011 05/12/20 22 Paresthesia of skin 07/13/2007 06/05/20 17 Enthesopathy of unspecified site 07/12/2007 04/19/2019 Pain in limb 06/01/2007 09/30/2016 Dizziness and giddiness 02/11/2007 1008/2006 Hypercalcemia 05/19/2006 05/24/2007 Anemia of chronic renal fail ure, stage 2 (mild) 05/19/2006 01/23/2023 Disorder of kidney and ureter 05/19/2006 05/12/2022 URETHRITIS OTHER SPECIFIED 01/13/2006 0 05/12/2022 Esophageal reflux 11/20/2005 04/19/2019 documented as of this encounter (statuses as of 03/25/2023) [facility] History of Past illness Narrative* Problem Noted Date Diagnosed Date Resolved Date Gastroesophageal reflux disease 08/20/2018 10/07/2018 Overview: Added automatically from request for surgery [id number] Epigastric pain 08/20/2018 04/19/2019 Overview: Added automatically from request for surgery [id number] Hyperlipidemia 10/19/2015 03/31/2017 Trigger ring finger of left hand 06/05/2014 04/19/2019 Perioral dermatitis 03/22/2014 03/31/20 17 Acne rosacea 03/22/2014 05/12/2022 Postinflammatory skin changes 03/22/2014 04/20/2015 Perianal dermatitis 08/22/2013 05/12/20 22 Anal burning 03/23/2013 04/20/2015 Irritated//Inflamed Seborrheic Keratosis 07/06/2012 04/20/2015 Milial cyst 07/06/2012 04/20/2015 Other seborrheic keratosis 07/06/2012 0 04/20/2015 Solar lentigo 07/06/2012 04/20/2015 Milia 07/06/2012 04/20/2015 Trigger middle finger of right hand 05/31/2012 04/19/2019 Trigger ring finger of right hand 05/31/2012 04/19/2019 Trigger little finger of left hand 05/03/2012 04/19/2019 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 Other seborrheic dermatitis 03/03/2012 04/20/2015 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 04/20/2015 Actinic skin damage 03/03/2012 04/20/20 15 Trigger middle finger of left hand 09/22/2011 04/19/2019 Trigger index finger of right hand 09/22/2011 04/19/2019 Trigger thumb of right hand 09/22/2011 04/19/2019 Psoriatic arthritis 02/13/2011 05/12/20 22 Paresthesia of skin 07/13/2007 06/05/20 17 Enthesopathy of unspecified site 07/12/2007 04/19/2019 Pain in limb 06/01/2007 09/30/2016 Dizziness and giddiness 02/11/2007 10/0 08/2006 Hypercalcemia 05/19/2006 05/24/2007 Anemia of chronic renal fail ure, stage 2 (mild) 05/19/2006 01/23/2023 Disorder of kidney and ureter 05/19/2006 05/12/2022 URETHRITIS OTHER SPECIFIED 01/13/2006 0 05/12/2022 Esophageal reflux 11/20/2005 04/19/2019 documented as of this encounter (statuses as of 04/07/2023) [facility] History of Past illness Narrative* Problem Noted Date Diagnosed Date Resolved Date Gastroesophageal reflux disease 08/20/2018 10/07/2018 Overview: Added automatically from request for surgery [id number] Epigastric pain 08/20/2018 04/19/2019 Overview: Added automatically from request for surgery [id number] Hyperlipidemia 10/19/2015 03/31/2017 Trigger ring finger of left hand 06/05/2014 04/19/2019 Perioral dermatitis 03/22/2014 03/31/20 17 Acne rosacea 03/22/2014 05/12/2022 Postinflammatory skin changes 03/22/2014 04/20/2015 Perianal dermatitis 08/22/2013 05/12/20 22 Anal burning 03/23/2013 04/20/2015 Irritated//Inflamed Seborrheic Keratosis 07/06/2012 04/20/2015 Milial cyst 07/06/2012 04/20/2015 Other seborrheic keratosis 07/06/2012 0 04/20/2015 Solar lentigo 07/06/2012 04/20/2015 Milia 07/06/2012 04/20/2015 Trigger middle finger of right hand 05/31/2012 04/19/2019 Trigger ring finger of right hand 05/31/2012 04/19/2019 Trigger little finger of left hand 05/03/2012 04/19/2019 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 Other seborrheic dermatitis 03/03/2012 04/20/2015 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 04/20/2015 Actinic skin damage 03/03/2012 04/20/20 15 Trigger middle finger of left hand 09/22/2011 04/19/2019 Trigger index finger of right hand 09/22/2011 04/19/2019 Trigger thumb of right hand 09/22/2011 04/19/2019 Psoriatic arthritis 02/13/2011 05/12/20 22 Paresthesia of skin 07/13/2007 06/05/20 17 Enthesopathy of unspecified site 07/12/2007 04/19/2019 Pain in limb 06/01/2007 09/30/2016 Dizziness and giddiness 02/11/200708/2006 Hypercalcemia 05/19/2006 05/24/2007 Anemia of chronic renal fail ure, stage 2 (mild) 05/19/2006 01/23/2023 Disorder of kidney and ureter 05/19/2006 05/12/2022 URETHRITIS OTHER SPECIFIED 01/13/2006 0 05/12/2022 Esophageal reflux 11/20/2005 04/19/2019 documented as of this encounter (statuses as of 04/21/2023) [facility] History of Past illness Narrative* Problem Noted Date Diagnosed Date Resolved Date Gastroesophageal reflux disease 08/20/2018 10/07/2018 Overview: Added automatically from request for surgery [id number] Epigastric pain 08/20/2018 04/19/2019 Overview: Added automatically from request for surgery [id number] Hyperlipidemia 10/19/2015 03/31/2017 Trigger ring finger of left hand 06/05/2014 04/19/2019 Perioral dermatitis 03/22/2014 03/31/20 17 Acne rosacea 03/22/2014 05/12/2022 Postinflammatory skin changes 03/22/2014 04/20/2015 Perianal dermatitis 08/22/2013 05/12/20 22 Anal burning 03/23/2013 04/20/2015 Irritated//Inflamed Seborrheic Keratosis 07/06/2012 04/20/2015 Milial cyst 07/06/2012 04/20/2015 Other seborrheic keratosis 07/06/2012 0 04/20/2015 Solar lentigo 07/06/2012 04/20/2015 Milia 07/06/2012 04/20/2015 Trigger middle finger of right hand 05/31/2012 04/19/2019 Trigger ring finger of right hand 05/31/2012 04/19/2019 Trigger little finger of left hand 05/03/2012 04/19/2019 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 Other seborrheic dermatitis 03/03/2012 04/20/2015 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 04/20/2015 Actinic skin damage 03/03/2012 04/20/20 15 Trigger middle finger of left hand 09/22/2011 04/19/2019 Trigger index finger of right hand 09/22/2011 04/19/2019 Trigger thumb of right hand 09/22/2011 04/19/2019 Psoriatic arthritis 02/13/2011 05/12/20 22 Paresthesia of skin 07/13/2007 06/05/20 17 Enthesopathy of unspecified site 07/12/2007 04/19/2019 Pain in limb 06/01/2007 09/30/2016 Dizziness and giddiness 02/11/2007 10/0 08/2006 Hypercalcemia 05/19/2006 05/24/2007 Anemia of chronic renal fail ure, stage 2 (mild) 05/19/2006 01/23/2023 Disorder of kidney and ureter 05/19/2006 05/12/2022 URETHRITIS OTHER SPECIFIED 01/13/2006 0 05/12/2022 Esophageal reflux 11/20/2005 04/19/2019 documented as of this encounter (statuses as of 04/21/2023) [facility] History of Past illness Narrative* Problem Noted Date Diagnosed Date Resolved Date Gastroesophageal reflux disease 08/20/2018 10/07/2018 Overview: Added automatically from request for surgery [id number] Epigastric pain 08/20/2018 04/19/2019 Overview: Added automatically from request for surgery [id number] Hyperlipidemia 10/19/2015 03/31/2017 Trigger ring finger of left hand 06/05/2014 04/19/2019 Perioral dermatitis 03/22/2014 03/31/20 17 Acne rosacea 03/22/2014 05/12/2022 Postinflammatory skin changes 03/22/2014 04/20/2015 Perianal dermatitis 08/22/2013 05/12/20 22 Anal burning 03/23/2013 04/20/2015 Irritated//Inflamed Seborrheic Keratosis 07/06/2012 04/20/2015 Milial cyst 07/06/2012 04/20/2015 Other seborrheic keratosis 07/06/2012 0 04/20/2015 Solar lentigo 07/06/2012 04/20/2015 Milia 07/06/2012 04/20/2015 Trigger middle finger of right hand 05/31/2012 04/19/2019 Trigger ring finger of right hand 05/31/2012 04/19/2019 Trigger little finger of left hand 05/03/2012 04/19/2019 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 Other seborrheic dermatitis 03/03/2012 04/20/2015 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 04/20/2015 Actinic skin damage 03/03/2012 04/20/20 15 Trigger middle finger of left hand 09/22/2011 04/19/2019 Trigger index finger of right hand 09/22/2011 04/19/2019 Trigger thumb of right hand 09/22/2011 04/19/2019 Psoriatic arthritis 02/13/2011 05/12/20 22 Paresthesia of skin 07/13/2007 06/05/20 17 Enthesopathy of unspecified site 07/12/2007 04/19/2019 Pain in limb 06/01/2007 09/30/2016 Dizziness and giddiness 02/11/2007 1008/2006 Hypercalcemia 05/19/2006 05/24/2007 Anemia of chronic renal fail ure, stage 2 (mild) 05/19/2006 01/23/2023 Disorder of kidney and ureter 05/19/2006 05/12/2022 URETHRITIS OTHER SPECIFIED 01/13/2006 0 05/12/2022 Esophageal reflux 11/20/2005 04/19/2019 documented as of this encounter (statuses as of 04/22/2023) [facility] of Past illness Narrative* Problem Noted Date Diagnosed Date Resolved Date Gastroesophageal reflux disease 08/20/2018 10/07/2018 Overview: Added automatically from request for surgery [id number] Epigastric pain 08/20/2018 04/19/2019 Overview: Added automatically from request for surgery [id number] Hyperlipidemia 10/19/2015 03/31/2017 Trigger ring finger of left hand 06/05/2014 04/19/2019 Perioral dermatitis 03/22/2014 03/31/20 17 Acne rosacea 03/22/2014 05/12/2022 Postinflammatory skin changes 03/22/2014 04/20/2015 Perianal dermatitis 08/22/2013 05/12/20 22 Anal burning 03/23/2013 04/20/2015 Irritated//Inflamed Seborrheic Keratosis 07/06/2012 04/20/2015 Milial cyst 07/06/2012 04/20/2015 Other seborrheic keratosis 07/06/2012 0 04/20/2015 Solar lentigo 07/06/2012 04/20/2015 Milia 07/06/2012 04/20/2015 Trigger middle finger of right hand 05/31/2012 04/19/2019 Trigger ring finger of right hand 05/31/2012 04/19/2019 Trigger little finger of left hand 05/03/2012 04/19/2019 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 Other seborrheic dermatitis 03/03/2012 04/20/2015 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 04/20/2015 Actinic skin damage 03/03/2012 04/20/20 15 Trigger middle finger of left hand 09/22/2011 04/19/2019 Trigger index finger of right hand 09/22/2011 04/19/2019 Trigger thumb of right hand 09/22/2011 04/19/2019 Psoriatic arthritis 02/13/2011 05/12/20 22 Paresthesia of skin 07/13/2007 06/05/20 17 Enthesopathy of unspecified site 07/12/2007 04/19/2019 Pain in limb 06/01/2007 09/30/2016 Dizziness and giddiness 02/11/2007 10/08/2006 Hypercalcemia 05/19/2006 05/24/2007 Anemia of chronic renal fail ure, stage 2 (mild) 05/19/2006 01/23/2023 Disorder of kidney and ureter 05/19/2006 05/12/2022 URETHRITIS OTHER SPECIFIED 01/13/2006 0 05/12/2022 Esophageal reflux 11/20/2005 04/19/2019 documented as of this encounter (statuses as of 04/22/2023) [facility] Past illness Narrative* Problem Noted Date Diagnosed Date Resolved Date Gastroesophageal reflux disease 08/20/2018 10/07/2018 Overview: Added automatically from request for surgery [id number] Epigastric pain 08/20/2018 04/19/2019 Overview: Added automatically from request for surgery [id number] Hyperlipidemia 10/19/2015 03/31/2017 Trigger ring finger of left hand 06/05/2014 04/19/2019 Perioral dermatitis 03/22/2014 03/31/20 17 Acne rosacea 03/22/2014 05/12/2022 Postinflammatory skin changes 03/22/2014 04/20/2015 Perianal dermatitis 08/22/2013 05/12/20 22 Anal burning 03/23/2013 04/20/2015 Irritated//Inflamed Seborrheic Keratosis 07/06/2012 04/20/2015 Milial cyst 07/06/2012 04/20/2015 Other seborrheic keratosis 07/06/2012 0 04/20/2015 Solar lentigo 07/06/2012 04/20/2015 Milia 07/06/2012 04/20/2015 Trigger middle finger of right hand 05/31/2012 04/19/2019 Trigger ring finger of right hand 05/31/2012 04/19/2019 Trigger little finger of left hand 05/03/2012 04/19/2019 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 Other seborrheic dermatitis 03/03/2012 04/20/2015 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 04/20/2015 Actinic skin damage 03/03/2012 04/20/20 15 Trigger middle finger of left hand 09/22/2011 04/19/2019 Trigger index finger of right hand 09/22/2011 04/19/2019 Trigger thumb of right hand 09/22/2011 04/19/2019 Psoriatic arthritis 02/13/2011 05/12/20 22 Paresthesia of skin 07/13/2007 10/13/20 17 Enthesopathy of unspecified site 07/12/2007 04/19/2019 Pain in limb 06/01/2007 09/30/2016 Dizziness and giddiness 02/11/200708/2006 Hypercalcemia 05/19/2006 05/24/2007 Anemia of chronic renal fail ure, stage 2 (mild) 05/19/2006 01/23/2023 Disorder of kidney and ureter 05/19/2006 05/12/2022 URETHRITIS OTHER SPECIFIED 01/13/2006 0 05/12/2022 Esophageal reflux 11/20/2005 04/19/2019 documented as of this encounter (statuses as of 04/25/2023) [facility] Narrative* Problem Noted Date Diagnosed Date Resolved Date Gastroesophageal reflux disease 08/20/2018 10/07/2018 Overview: Added automatically from request for surgery [id number] Epigastric pain 08/20/2018 04/19/2019 Overview: Added automatically from request for surgery [id number] Hyperlipidemia 10/19/2015 03/31/2017 Trigger ring finger of left hand 06/05/2014 04/19/2019 Perioral dermatitis 03/22/2014 03/31/20 17 Acne rosacea 03/22/2014 05/12/2022 Postinflammatory skin changes 03/22/2014 04/20/2015 Perianal dermatitis 08/22/2013 05/12/20 22 Anal burning 03/23/2013 04/20/2015 Irritated//Inflamed Seborrheic Keratosis 07/06/2012 04/20/2015 Milial cyst 07/06/2012 04/20/2015 Other seborrheic keratosis 07/06/2012 0 04/20/2015 Solar lentigo 07/06/2012 04/20/2015 Milia 07/06/2012 04/20/2015 Trigger middle finger of right hand 05/31/2012 04/19/2019 Trigger ring finger of right hand 05/31/2012 04/19/2019 Trigger little finger of left hand 05/03/2012 04/19/2019 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 Other seborrheic dermatitis 03/03/2012 04/20/2015 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 04/20/2015 Actinic skin damage 03/03/2012 04/20/20 15 Trigger middle finger of left hand 09/22/2011 04/19/2019 Trigger index finger of right hand 09/22/2011 04/19/2019 Trigger thumb of right hand 09/22/2011 04/19/2019 Psoriatic arthritis 02/13/2011 05/12/20 22 Paresthesia of skin 07/13/2007 06/05/20 17 Enthesopathy of unspecified site 07/12/2007 04/19/2019 Pain in limb 06/01/2007 09/30/2016 Dizziness and giddiness 02/11/2007 10/0 08/2006 Hypercalcemia 05/19/2006 05/24/2007 Anemia of chronic renal fail ure, stage 2 (mild) 05/19/2006 01/23/2023 Disorder of kidney and ureter 05/19/2006 05/12/2022 URETHRITIS OTHER SPECIFIED 01/13/2006 0 05/12/2022 Esophageal reflux 11/20/2005 04/19/2019 documented as of this encounter (statuses as of 05/01/2023) [facility] Narr[facility]* Problem Noted Date Diagnosed Date Resolved Date Gastroesophageal reflux disease 08/20/2018 10/07/2018 Overview: Added automatically from request for surgery [id number] Epigastric pain 08/20/2018 04/19/2019 Overview: Added automatically from request for surgery [id number] Hyperlipidemia 10/19/2015 03/31/2017 Trigger ring finger of left hand 06/05/2014 04/19/2019 Perioral dermatitis 03/22/2014 03/31/20 17 Acne rosacea 03/22/2014 05/12/2022 Postinflammatory skin changes 03/22/2014 04/20/2015 Perianal dermatitis 08/22/2013 05/12/20 22 Anal burning 03/23/2013 04/20/2015 Irritated//Inflamed Seborrheic Keratosis 07/06/2012 04/20/2015 Milial cyst 07/06/2012 04/20/2015 Other seborrheic keratosis 07/06/2012 0 04/20/2015 Solar lentigo 07/06/2012 04/20/2015 Milia 07/06/2012 04/20/2015 Trigger middle finger of right hand 05/31/2012 04/19/2019 Trigger ring finger of right hand 05/31/2012 04/19/2019 Trigger little finger of left hand 05/03/2012 04/19/2019 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 Other seborrheic dermatitis 03/03/2012 04/20/2015 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 04/20/2015 Actinic skin damage 03/03/2012 04/20/20 15 Trigger middle finger of left hand 09/22/2011 04/19/2019 Trigger index finger of right hand 09/22/2011 04/19/2019 Trigger thumb of right hand 09/22/2011 04/19/2019 Psoriatic arthritis 02/13/2011 05/12/20 22 Paresthesia of skin 07/13/2007 06/05/20 17 Enthesopathy of unspecified site 07/12/2007 04/19/2019 Pain in limb 06/01/2007 09/30/2016 Dizziness and giddiness 02/11/2007 1008/2006 Hypercalcemia 05/19/2006 05/24/2007 Anemia of chronic renal fail ure, stage 2 (mild) 05/19/2006 01/23/2023 Disorder of kidney and ureter 05/19/2006 05/12/2022 URETHRITIS OTHER SPECIFIED 01/13/2006 0 05/12/2022 Esophageal reflux 11/20/2005 04/19/2019 documented as of this encounter (statuses as of 05/01/2023) [facility]* Problem Noted Date Diagnosed Date Resolved Date Gastroesophageal reflux disease 08/20/2018 10/07/2018 Overview: Added automatically from request for surgery [id number] Epigastric pain 08/20/2018 04/19/2019 Overview: Added automatically from request for surgery [id number] Hyperlipidemia 10/19/2015 03/31/2017 Trigger ring finger of left hand 06/05/2014 04/19/2019 Perioral dermatitis 03/22/2014 03/31/20 17 Acne rosacea 03/22/2014 05/12/2022 Postinflammatory skin changes 03/22/2014 04/20/2015 Perianal dermatitis 08/22/2013 05/12/20 22 Anal burning 03/23/2013 04/20/2015 Irritated//Inflamed Seborrheic Keratosis 07/06/2012 04/20/2015 Milial cyst 07/06/2012 04/20/2015 Other seborrheic keratosis 07/06/2012 0 04/20/2015 Solar lentigo 07/06/2012 04/20/2015 Milia 07/06/2012 04/20/2015 Trigger middle finger of right hand 05/31/2012 04/19/2019 Trigger ring finger of right hand 05/31/2012 04/19/2019 Trigger little finger of left hand 05/03/2012 04/19/2019 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 Other seborrheic dermatitis 03/03/2012 04/20/2015 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 04/20/2015 Actinic skin damage 03/03/2012 04/20/20 15 Trigger middle finger of left hand 09/22/2011 04/19/2019 Trigger index finger of right hand 09/22/2011 04/19/2019 Trigger thumb of right hand 09/22/2011 04/19/2019 Psoriatic arthritis 02/13/2011 05/12/20 22 Paresthesia of skin 07/13/2007 06/05/20 17 Enthesopathy of unspecified site 07/12/2007 04/19/2019 Pain in limb 06/01/2007 09/30/2016 Dizziness and giddiness 02/11/2007 10/08/2006 Hypercalcemia 05/19/2006 05/24/2007 Anemia of chronic renal fail ure, stage 2 (mild) 05/19/2006 01/23/2023 Disorder of kidney and ureter 05/19/2006 05/12/2022 URETHRITIS OTHER SPECIFIED 01/13/2006 0 05/12/2022 Esophageal reflux 11/20/2005 04/19/2019 documented as of this encounter (statuses as of 05/20/2023) [facility]* Problem Noted Date Diagnosed Date Resolved Date Gastroesophageal reflux disease 08/20/2018 10/07/2018 Overview: Added automatically from request for surgery [id number] Epigastric pain 08/20/2018 04/19/2019 Overview: Added automatically from request for surgery [id number] Hyperlipidemia 10/19/2015 03/31/2017 Trigger ring finger of left hand 06/05/2014 04/19/2019 Perioral dermatitis 03/22/2014 03/31/20 17 Acne rosacea 03/22/2014 05/12/2022 Postinflammatory skin changes 03/22/2014 04/20/2015 Perianal dermatitis 08/22/2013 05/12/20 22 Anal burning 03/23/2013 04/20/2015 Irritated//Inflamed Seborrheic Keratosis 07/06/2012 04/20/2015 Milial cyst 07/06/2012 04/20/2015 Other seborrheic keratosis 07/06/2012 0 04/20/2015 Solar lentigo 07/06/2012 04/20/2015 Milia 07/06/2012 04/20/2015 Trigger middle finger of right hand 05/31/2012 04/19/2019 Trigger ring finger of right hand 05/31/2012 04/19/2019 Trigger little finger of left hand 05/03/2012 04/19/2019 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 Other seborrheic dermatitis 03/03/2012 04/20/2015 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 04/20/2015 Actinic skin damage 03/03/2012 04/20/20 15 Trigger middle finger of left hand 09/22/2011 04/19/2019 Trigger index finger of right hand 09/22/2011 04/19/2019 Trigger thumb of right hand 09/22/2011 04/19/2019 Psoriatic arthritis 02/13/2011 05/12/20 22 Paresthesia of skin 07/13/2007 06/05/20 17 Enthesopathy of unspecified site 07/12/2007 04/19/2019 Pain in limb 06/01/2007 09/30/2016 Dizziness and giddiness 02/11/2007 10/08/2006 Hypercalcemia 05/19/2006 05/24/2007 Anemia of chronic renal fail ure, stage 2 (mild) 05/19/2006 01/23/2023 Disorder of kidney and ureter 05/19/2006 05/12/2022 URETHRITIS OTHER SPECIFIED 01/13/2006 0 05/12/2022 Esophageal reflux 11/20/2005 04/19/2019 documented as of this encounter (statuses as of 05/29/2023) [facility]12-28-2018 History of Past illness Narrative* Problem Noted Date Diagnosed Date Resolved Date Gastroesophageal reflux disease 08/20/2018 10/07/2018 Overview: Added automatically from request for surgery [id number] Epigastric pain 08/20/2018 04/19/2019 Overview: Added automatically from request for surgery [id number] Hyperlipidemia 10/19/2015 03/31/2017 Trigger ring finger of left hand 06/05/2014 04/19/2019 Perioral dermatitis 03/22/2014 03/31/20 17 Acne rosacea 03/22/2014 05/12/2022 Postinflammatory skin changes 03/22/2014 04/20/2015 Perianal dermatitis 08/22/2013 05/12/20 22 Anal burning 03/23/2013 04/20/2015 Irritated//Inflamed Seborrheic Keratosis 07/06/2012 04/20/2015 Milial cyst 07/06/2012 04/20/2015 Other seborrheic keratosis 07/06/2012 0 04/20/2015 Solar lentigo 07/06/2012 04/20/2015 Milia 07/06/2012 04/20/2015 Trigger middle finger of right hand 05/31/2012 04/19/2019 Trigger ring finger of right hand 05/31/2012 04/19/2019 Trigger little finger of left hand 05/03/2012 04/19/2019 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 Other seborrheic dermatitis 03/03/2012 04/20/2015 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 04/20/2015 Actinic skin damage 03/03/2012 04/20/20 15 Trigger middle finger of left hand 09/22/2011 04/19/2019 Trigger index finger of right hand 09/22/2011 04/19/2019 Trigger thumb of right hand 09/22/2011 04/19/2019 Psoriatic arthritis 02/13/2011 05/12/20 22 Paresthesia of skin 07/13/2007 06/05/20 17 Enthesopathy of unspecified site 07/12/2007 04/19/2019 Pain in limb 06/01/2007 09/30/2016 Dizziness and giddiness 02/11/200708/2006 Hypercalcemia 05/19/2006 05/24/2007 Anemia of chronic renal fail ure, stage 2 (mild) 05/19/2006 01/23/2023 Disorder of kidney and ureter 05/19/2006 05/12/2022 URETHRITIS OTHER SPECIFIED 01/13/2006 0 05/12/2022 Esophageal reflux 11/20/2005 04/19/2019 documented as of this encounter (statuses as of 06/28/2023) [facility] Future App[facility] Evaluation note* Diagnosis Restless legs syndrome Restless legs syndrome (RLS) documented in this encounter [facility]No assessment [facility] Work Phone: Evaluation note* Diagnosis Hyponatremia- Primary Hyposmolality and/or hyponatremia Hypothyroidism, unspecified type documented in this encounter [facility] note* Diagnosis Essential hypertension, benign documented in this encounter [facility] note* Diagnosis Essential hypertension, benign [facility]* Diagnosis Renal insufficiency- Primary Unspecified disorder of kidney and ureter Restless legs syndrome- Primary Restless legs syndrome (RLS) Dream enactment behavior Tremor Abnormal involuntary movements documented in this encounter [facility] note* Diagnosis Restless legs syndrome- Primary Restless legs syndrome (RLS) Dream enactment behavior Tremor Abnormal involuntary movements [facility]* Diagnosis Essential hypertension, benign [facility]* Diagnosis Urinary frequency- Primary Burning with urination Dysuria documented in this encounter [facility] note* Diagnosis Microscopic hematuria- Primary Right leg pain Pain in limb [facility]* Diagnosis Restless legs syndrome Restless legs syndrome (RLS) Dream enactment behavior Tremor Abnormal involuntary movements [facility]* Diagnosis 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 documented in this encounter [facility] note* Diagnosis 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 documented [facility]* Diagnosis RLS (restless legs syndrome)- Primary Restless legs syndrome (RLS) [facility] Essential hypertension, benign- Primary Essential tremor Essential and other specified forms of tremor Restless legs syndrome Restless legs syndrome (RLS) Anemia of chronic renal failure, stage 2 (mild) Stage 3 chronic kidney disease, unspecified whether stage 3a or 3b CKD (HCC) Hypothyroidism, unspecified type Prediabetes Other abnormal glucose Leukopenia, unspecified type Mixed hyperlipidemia Microscopic hematuria Rosacea Chronic left-sided thoracic back pain [facility] Diagnosis Chronic left-sided thoracic back pain [facility] Diagnosis Chronic left-sided thoracic back pain- Primary [facility] Diagnosis Chronic left-sided thoracic back pain- Primary [facility]* Diagnosis Tremor- Primary Abnormal involuntary movements RLS (restless legs syndrome) Restless legs syndrome (RLS) Dream enactment behavior Restless legs syndrome Restless legs syndrome (RLS) [facility]* Diagnosis Hypothyroidism, unspecified type Hiccups Hiccough GERD with esophagitis [facility]* Diagnosis Muscle spasm of both lower legs- Primary Spasm of muscle Essential tremor Essential and other specified forms of tremor Essential hypertension, benign Anemia of chronic renal failure, stage 2 (mild) Stage 3 chronic kidney disease, unspecified whether stage 3a or 3b CKD (HCC) Other psoriasis Prediabetes Other abnormal glucose [facility]* Diagnosis Raynaud's phenomenon without gangrene- Primary Other autoinflammatory syndromes (HCC) [facility]* Diagnosis Leukopenia, unspecified type- Primary Renal insufficiency Unspecified disorder of kidney and ureter [facility]* Diagnosis Dream enactment behavior- Primary Restless legs syndrome Restless legs syndrome (RLS) Tremor Abnormal involuntary movements [facility] Diagnosis Medication monitoring encounter- Primary Encounter for therapeutic drug monitoring Dream enactment behavior Restless legs syndrome Restless legs syndrome (RLS) Tremor Abnormal involuntary movements RLS (restless legs syndrome) Restless legs syndrome (RLS) [facility]* Diagnosis RLS (restless legs syndrome)- Primary Restless legs syndrome (RLS) Dream enactment behavior Restless legs syndrome Restless legs syndrome (RLS) Tremor Abnormal involuntary movements [facility]* Diagnosis Hypothyroidism, unspecified type [facility] this [facility]* Diagnosis Mixed hyperlipidemia- Primary Essential hypertension, benign Essential tremor Essential and other specified forms of tremor Restless legs syndrome Restless legs syndrome (RLS) Hypothyroidism, unspecified type Stage 3 chronic kidney disease, unspecified whether stage 3a or 3b CKD (HCC) Prediabetes Other abnormal glucose OSTEOPOROSIS POSTMENOPAUSAL Senile osteoporosis Heart murmur Undiagnosed cardiac murmurs RUQ pain Abdominal pain, right upper quadrant [facility] this [facility]* Diagnosis Valvular heart disease- Primary Endocarditis, valve unspecified, unspecified cause [facility] this [facility]* Diagnosis RUQ pain- Primary Abdominal pain, right upper quadrant Abnormal US (ultrasound) of abdomen Nonspecific (abnormal) findings on radiological and other examination of abdominal area, including retroperitoneum [facility]* Diagnosis RLS (restless legs syndrome)- Primary Restless legs syndrome (RLS) Dream enactment behavior Restless legs syndrome Restless legs syndrome (RLS) Cardiac murmur Undiagnosed cardiac murmurs [facility]* Diagnosis Onset Date Resolution Status Essential hypertension acute Non-rheumatic mitral regurgitation acute [facility] Work Phone: Evaluation note* Diagnosis RLQ abdominal pain- Primary Abdominal pain, right lower quadrant Nonrheumatic mitral valve regurgitation [facility]* Diagnosis Encounter for screening mammogram for malignant neoplasm of breast- Primary Other screening mammogram [facility]* Diagnosis RLS (restless legs syndrome) Restless legs syndrome (RLS) [facility]* Diagnosis Gastroesophageal reflux disease with esophagitis, unspecified whether hemorrhage- Primary Constipation, unspecified constipation type LLQ pain Abdominal pain, left lower quadrant Abnormal US (ultrasound) of abdomen Nonspecific (abnormal) findings on radiological and other examination of abdominal area, including retroperitoneum Essential hypertension, benign [facility]* Diagnosis Ileus (HCC)- Primary Paralytic ileus Abnormal US (ultrasound) of abdomen Nonspecific (abnormal) findings on radiological and other examination of abdominal area, including retroperitoneum 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 Hiatal hernia with GERD documented in this encounter [facility] note* Diagnosis RLS (restless legs syndrome)- Primary Restless legs syndrome (RLS) Dream enactment behavior Chronic kidney disease, unspecified CKD stage documented in this encounter [facility] note* Diagnosis Hypertension, unspecified type- Primary documented in this encounter [facility] note* Diagnosis Inconclusive mammogram- Primary documented in this encounter [facility] note* Diagnosis Inconclusive mammogram- Primary documented in this encounter [facility] note* Diagnosis Restless legs syndrome- Primary Restless legs syndrome (RLS) Essential hypertension, benign Mixed hyperlipidemia Essential tremor Essential and other specified forms of tremor Nonrheumatic mitral valve regurgitation Gastroesophageal reflux disease with esophagitis, unspecified whether hemorrhage Stage 3 chronic kidney disease, unspecified whether stage 3a or 3b CKD (HCC) Hypothyroidism, unspecified type Other autoinflammatory syndromes (HCC) Prediabetes Other abnormal glucose Hypogammaglobulinemia (HCC) Hypogammaglobulinaemia, unspecified Acute constipation Unspecified constipation Abdominal pain, LLQ Abdominal pain, left lower quadrant Right lower quadrant abdominal pain Abdominal pain, right lower quadrant documented in this encounter [facility] note* Diagnosis RUQ pain- Primary Abdominal pain, right upper quadrant Abdominal pain, LLQ Abdominal pain, left lower quadrant documented in this encounter [facility] note* Diagnosis RUQ pain Abdominal pain, right upper quadrant documented in this encounter [facility] note* Diagnosis Inconclusive mammogram documented in this encounter [facility] note* Diagnosis Ileus (HCC) Paralytic ileus documented in this encounter [facility] note* Diagnosis Encounter for screening mammogram for malignant neoplasm of breast Other screening mammogram documented in this encounter [facility] note* Diagnosis Inconclusive mammogram documented in this encounter [facility] note* Diagnosis RUQ pain Abdominal pain, right upper quadrant documented in this encounter [facility] note* Diagnosis Dream enactment behavior Restless legs syndrome Restless legs syndrome (RLS) Tremor Abnormal involuntary movements documented in this encounter [facility] note* Diagnosis Essential hypertension, benign Hypothyroidism, unspecified type Hiccups Hiccough GERD with esophagitis documented in this encounter [facility] note* Diagnosis Leukopenia, unspecified type- Primary documented in this encounter [facility] note* Diagnosis Abdominal pain, LLQ- Primary Abdominal pain, left lower quadrant documented in this encounter [facility] note* Diagnosis Encounter for screening for malignant neoplasm of colon- Primary Special screening for malignant neoplasms, colon Abdominal pain, LLQ Abdominal pain, left lower quadrant documented in this encounter [facility] note* Diagnosis Abdominal pain, LLQ- Primary Abdominal pain, left lower quadrant documented in this encounter [facility] note* Diagnosis Inconclusive mammogram documented in this encounter [facility] note* Diagnosis Inconclusive mammogram documented in this encounter [facility] note* Diagnosis Abnormal mammogram- Primary Abnormal mammogram, unspecified documented in this encounter [facility] note* Diagnosis RLS (restless legs syndrome)- Primary Restless legs syndrome (RLS) Dream enactment behavior Abnormal finding of blood chemistry, unspecified Vitamin D deficiency Unspecified vitamin D deficiency documented in this encounter [facility] note* Diagnosis URI, acute- Primary Acute upper respiratory infections of unspecified site documented in this encounter [facility] note* Diagnosis Dislocation of finger PIP joint, initial encounter Dislocation of proximal interphalangeal joint of unspecified finger, initial encounter documented in this encounter [facility] note* Diagnosis Dislocation of interphalangeal joint of right middle finger, subsequent encounter- Primary documented in this encounter [facility] note* Diagnosis Essential hypertension, benign documented in this encounter [facility] note* Diagnosis Dislocation of proximal interphalangeal joint of right middle finger, subsequent encounter History of arthroplasty of finger documented in this encounter [facility] note* Diagnosis Dislocation of finger PIP joint, initial encounter documented in this encounter [facility] note* Diagnosis Restless legs syndrome Restless legs syndrome (RLS) documented in this encounter [facility] note* Diagnosis Dislocation of proximal interphalangeal joint of right middle finger, subsequent encounter History of arthroplasty of finger documented in this encounter [facility] note* Diagnosis Dislocation of proximal interphalangeal joint of right middle finger, subsequent encounter- Primary History of arthroplasty of finger documented in this encounter [facility] note* Diagnosis Restless legs syndrome- Primary Restless legs syndrome (RLS) Essential tremor Essential and other specified forms of tremor Essential hypertension, benign Mixed hyperlipidemia Nonrheumatic mitral valve regurgitation Gastroesophageal reflux disease with esophagitis, unspecified whether hemorrhage Stage 3 chronic kidney disease, unspecified whether stage 3a or 3b CKD (HCC) Hypothyroidism, unspecified type Hypogammaglobulinemia (HCC) Hypogammaglobulinaemia, unspecified Prediabetes Other abnormal glucose Chest pain, unspecified type Headache, unspecified headache type Screening for depression Encounter for screening examination for other mental health and behavioral disorders OSTEOPOROSIS POSTMENOPAUSAL Senile osteoporosis Myalgia Mylagia and myositis, unspecified documented in this encounter [facility] note* Diagnosis RLS (restless legs syndrome) Restless legs syndrome (RLS) documented in this encounter [facility] note* Diagnosis RLS (restless legs syndrome) Restless legs syndrome (RLS) documented in this encounter [facility] note* Diagnosis Pain of right middle finger- Primary documented in this encounter [facility] note* Diagnosis Chronic insomnia- Primary Insomnia, unspecified Essential hypertension, benign Hypothyroidism, unspecified type Hiccups Hiccough GERD with esophagitis Hyperlipidemia, mixed Mixed hyperlipidemia documented in this encounter [facility] note* Diagnosis Dislocation of proximal interphalangeal joint of right middle finger, subsequent encounter History of arthroplasty of finger documented in this encounter [facility] note* Diagnosis Chest pain, unspecified type documented in this encounter [facility] note* Diagnosis Chronic left-sided thoracic back pain documented in this encounter [facility] note* Diagnosis Restless legs syndrome Restless legs syndrome (RLS) documented in this encounter [facility] note* Diagnosis Chronic pain of both knees documented in this encounter [facility] note* Diagnosis Screening mammogram for breast cancer- Primary documented in this encounter [facility] note* Diagnosis Abnormal mammogram Abnormal mammogram, unspecified documented in this encounter [facility] note* Diagnosis Screening mammogram for breast cancer documented in this encounter [facility] note* Diagnosis RLS (restless legs syndrome)- Primary Restless legs syndrome (RLS) Dream enactment behavior Tremor Abnormal involuntary movements documented in this encounter [facility] note* Diagnosis Burning with urination- Primary Dysuria Acute midline low back pain without sciatica Fall, initial encounter Acute cystitis with hematuria Acute cystitis Pelvic pain Acute midline low back pain without sciatica Pelvic pain documented in this encounter [facility] note* Diagnosis Acute midline low back pain without sciatica Pelvic pain [facility]* Diagnosis RLS (restless legs syndrome)- Primary Restless legs syndrome (RLS) PLMD (periodic limb movement disorder) Periodic limb movement disorder Dream enactment behavior Insomnia, unspecified type documented in this encounter [facility] note* Diagnosis RLS (restless legs syndrome) Restless legs syndrome (RLS) [facility]* Diagnosis Restless legs syndrome- Primary Restless legs syndrome (RLS) Essential hypertension, benign Mixed hyperlipidemia Hypothyroidism, unspecified type Chronic kidney disease, stage 3a (HCC) documented in this encounter [facility] note* Diagnosis Leukopenia, unspecified type- Primary [facility]* Diagnosis Dislocation of proximal interphalangeal joint of right middle finger, subsequent encounter- Primary History of arthroplasty of finger Right hand pain Pain in soft tissues of limb Pain in right hand [facility] Diagnosis Dislocation of proximal interphalangeal joint of right middle finger, subsequent encounter- Primary Dislocation of proximal interphalangeal joint of right middle finger, subsequent encounter [facility]* Diagnosis Dislocation of proximal interphalangeal joint of right middle finger, subsequent encounter [facility] Diagnosis Dislocation of proximal interphalangeal joint of right middle finger, subsequent encounter- Primary Dislocation of finger PIP joint, initial encounter [facility]* Diagnosis Dislocation of proximal interphalangeal joint of right middle finger, subsequent encounter- Primary History of arthroplasty of finger [facility]* Diagnosis Essential hypertension, benign documented in this encounter [facility] note* Diagnosis Dislocation of proximal interphalangeal joint of right middle finger, subsequent encounter- Primary Dislocation of finger PIP joint, initial encounter Dislocation of proximal interphalangeal joint of right middle finger, subsequent encounter Dislocation of finger PIP joint, initial encounter [facility]* Diagnosis Onset Date Resolution Status Admit Date Chest pain acute February 28, 2025 10:42am Essential hypertension acute Ju 2024 10:42am Non-rheumatic mitral regurgitation acute February 28, 2025 1 0:42am [facility] Work Phone: Evaluation note* Diagnosis PLMD (periodic limb movement disorder)- Primary Periodic limb movement disorder RLS (restless legs syndrome) Restless legs syndrome (RLS) Dream enactment behavior Insomnia, unspecified type High risk medication use Encounter for long-term (current) use of other medications documented in this encounter [facility] course Narrative No data available for this section [facility] Hospital Discharge instructions No data available for this section [facility] Progress note No data available for this section [facility] Reason for referral (narrative)* Outpatient Procedure (Urgent) - Authorized Specialty Diagnoses / Procedures Referred By Avni barrios Referred To Contact [facility] [place] Diagnoses Right leg pain Procedures US LEG VEIN DVT UNL VAS LAB DUP-SCAN XTR VEINS UNILATERAL/LIMITED STUDY Gloria Garibay APRN.[employer]IVIL ENGINEERING PROJECT DESIGNER [address] [place] [address] [facility] [place] [address] [place] [address] Referral ID Status Reason Start Date Expiration Date Visits Requested Visits Authorized [id number] Authorized Auto-Generat ed Referral 04/02/2022 04/02/2023 1 1 [facility] for referral (narrative)* Diagnostic Procedure Only (Urgent) - Authorized Specialty Diagnoses / Procedures Referred By Avni barrios Referred To Contact [facility] Diagnoses Inversion of left nipple Nipple anomaly Procedures US BREAST LTD LT US BREAST UNI REAL TIME WITH IMAGE LIMITED Mónica Garcia APRN.CIVIL ENGINEERING PROJECT DESIGNER [address] [place] [address] [facility] [address] [place] [address] Referral ID Status Reason Start Date Expiration Date Visits Requested Visits Authorized [id number] Authorized Auto-Generat ed Referral 04/10/2022 05/10/2023 1 1 * Diagnostic Procedure Only (Urgent) - Authorized Specialty Diagnoses / Procedures Referred By Contac t Referred To Contact [facility] Diagnoses Inversion of left nipple Nipple anomaly Procedures [facility] DIAGNOSTIC MAMMOGRAPHY COMPUTER-AIDED [facility] RadhaMónica APRN.CIVIL ENGINEERING PROJECT DESIGNER [address], [place] [address] [facility] [address] [place] [address] Referral ID Status Reason Start Date Expiration Date Visits Requested Visits Authorized [id number] Authorized Auto-Generat ed Referral 04/10/2022 05/10/2023 1 1 [facility] for referral (narrative)* Diagnostic Procedure Only (Urgent) - Closed Specialty Diagnoses / Procedures [facility] Referred To Contact BR [facility] Diagnoses Inversion of left nipple Nipple anomaly Procedures KAITLIN DIAGNOSTIC LT DIAGNOSTIC MAMMOGRAPHY COMPUTER-AIDED [facility] Center[facility]ónica, ADMINISTRATIVE ACCOUNTANT.CIVIL ENGINEERING PROJECT DESIGNER [address] [place] [address] [facility] [address] [place] [address] Referral ID Status Reason Start Date Expiration Date V isits Requested Visits Authorized [id number] Closed Auto-Generate d Referral 04/10/2022 05/10/2023 1 1 [facility] for referral (narrative)* Outpatient Procedure (Routine) - Authorized Specialty Diagnoses / Procedures Referred By Contac t Referred To [facility] Diagnoses Raynaud's phenomenon without gangrene Procedures US ARM ARTERIAL UNL VAS LAB DUP-SCAN UXTR ART/ARTL BPGS UNI/LMTD STUDY Gloria Garibay APRN.CIVIL ENGINEERING PROJECT DESIGNER [address] [place] [address] [facility] [place] [address] [place] [address] Referral ID Status Reason Start Date Expiration Date Visits Requested Visits Authorized [id number] Authorized Auto-Generat ed Referral 08/13/2023 1 1 [facility] for referral (narrative)* Outpatient Procedure (Routine) - Authorized Specialty Diagnoses / Procedures Referred By Jennaac t Referred To [facility] Diagnoses Heart murmur Procedures ECHO ECHO TTHRC R-T 2D W/WOM-MODE COMPL SPEC&COLR D Jeffy Fields MD [address] [place] [address] [facility] [place] [address] [place] [address] Referral ID Status Reason Start Date Expiration Date Visits Requested Visits Authorized [id number] Authorized Auto-Generat ed Referral 01/23/2023 01/23/2024 1 1 * Diagnostic Procedure Only (Routine) - Authorized Specialty Diagnoses / Procedures [facility] Referred To Contact US IMAGING Diagnoses RUQ pain Procedures US ABD RIGHT UPPER QUADRANT US ABDOMINAL REAL TIME W/IMAGE LIMITED Jeffy Fields MD [facility] [place] [address] Us Imaging Referral ID Status Reason Start Date Expiration Date Visits Requested Visits Authorized [id number] Authorized Auto-Generat ed Referral 01/23/2023 02/22/2024 1 1 [facility] for referral (narrative)* Diagnostic Procedure Only (Routine) - Pending Review Specialty Diagnoses / Procedures Referred By Avni t Referred To Contact BR IMAGING Diagnoses Encounter for screening mammogram for malignant neoplasm of breast Procedures KAITLIN SCREENING SCREENING MAMMOGRAPHY BI 2-VIEW BREAST INC CAD Jeffy Fields MD [address] [place] [address] [facility] [address] [place] [address] Referral ID Status Reason Start Date Expiration Date Visits Requested Visits Authorized [id number] Pending Review Auto-Generat ed Referral 03/20/2023 04/18/2024 1 1 [facility] for referral (narrative)* Outpatient Procedure (Routine) - Pending Review Specialty Diagnoses / Procedures Referred By Avni t Referred To Contact [facility] Diagnoses Fatty metamorphosis of liver Procedures DDI VIBRATION CONTROLLED TRANSIENT ELASTOGRAPHY (VCTE) LIVER ELASTOGRAPHY W/O IMAG W/I&R Tete Galvin PA-C [address] [place] [address] [facility] [place] [address] [place] [address] Referral ID Status Reason Start Date Expiration Date Visits Requested Visits Authorized [id number] Pending Review Auto-Generat ed Referral 04/07/2023 04/07/2024 1 1 * Diagnostic Procedure Only (Routine) - Closed Specialty Diagnoses / Procedures Referred By Avni barrios Referred To Contact XR IMAGING Diagnoses Ileus (HCC) Procedures XR ABDOMEN 1V SUPINE RADIOLOGIC EXAM ABDOMEN 1 VIEW Tete Galvin PA-C [address] [place] [address] X[facility] Imaging Referral ID Status Reason Start Date Expiration Date V isits Requested Visits Authorized [id number] Closed Auto-Generate d Referral 04/07/2023 05/06/2024 1 1 [facility] for referral (narrative)* Diagnostic Procedure Only (Routine) - Authorized Specialty Diagnoses / Procedures [facility] Referred To Contact [facility] Diagnoses Inconclusive mammogram Procedures US BREAST LTD LEFT US BREAST UNI REAL TIME WITH IMAGE LIMITED Lorraine Zamora PA-C [address] [place] [address] [facility] [address] [place] [address] Referral ID Status Reason Start Date Expiration Date Visits Requested Visits Authorized [id number] Authorized Auto-Generat ed Referral 04/30/2023 05/29/2024 1 1 * Diagnostic Procedure Only (Routine) - Authorized Specialty Diagnoses / Procedures Referred By Avni t Referred To Contact BR IMAGING Diagnoses Inconclusive mammogram Procedures KAITLIN DIAGNOSTIC LEFT DIAGNOSTIC MAMMOGRAPHY COMPUTER-AIDED DETCJ UNI Lorraine Zamora PA-C [address] [place] [address] [facility] [address] [place] [address] Referral ID Status Reason Start Date Expiration Date Visits Requested Visits Authorized [id number] Authorized Auto-Generat ed Referral 04/30/2023 05/29/2024 1 1 [facility] for referral (narrative)* Diagnostic Procedure Only (Routine) - Authorized Specialty Diagnoses / Procedures Referred By Avni barrios Referred To Contact BR IMAGING Diagnoses Inconclusive mammogram Procedures US BREAST LTD LEFT US BREAST UNI REAL TIME WITH IMAGE LIMITED Lorraine Zamora PA-C [address] [place] [address] [facility] [address] [place] [address] Referral ID Status Reason Start Date Expiration Date Visits Requested Visits Authorized [id number] Authorized Auto-Generat ed Referral 11/26/2023 06/25/2024 1 1 * Diagnostic Procedure Only (Routine) - Authorized Specialty Diagnoses / Procedures Referred By Avni barrios Referred To Contact BR IMAGING Diagnoses Inconclusive mammogram Procedures KAITLIN DIAGNOSTIC LEFT DIAGNOSTIC MAMMOGRAPHY COMPUTER-AIDED DETCJ Lorraine Avitia PA-C [address] [place] [address] [facility] [address] [place] [address] Referral ID Status Reason Start Date Expiration Date Visits Requested Visits Authorized [id number] Authorized Auto-Generat ed Referral 11/26/2023 06/25/2024 1 1 [facility] for referral (narrative)* Diagnostic Procedure Only (Routine) - Authorized Specialty Diagnoses / Procedures Referred By Contac t Referred To Contact [facility]CULAR [facility] FUN[facility]AL [facility] Diagnoses RUQ pain Procedures NM HEPATOBILIARY W EF AND/OR RX HEPATOBIL SYST IMAG INC GB W/PHARMA INTERVENJ Ralf Giles MD [address] [place] [address] [facility] [address] [place] [address] Referral ID Status Reason Start Date Expiration Date Visits Requested Visits Authorized [id number] Authorized Auto-Generat ed Referral 06/24/2023 07/23/2024 1 1 [facility] for referral (narrative)* Diagnostic Procedure Only (Routine) - Closed Specialty Diagnoses / Procedures [facility] Referred To Contact US IMAGING Diagnoses RUQ pain Procedures US ABD RIGHT UPPER QUADRANT US ABDOMINAL REAL TIME W/IMAGE LIMITED Jeffy Fields MD [address] [place] [address] [place] [address] Referral ID Status Reason Start Date Expiration Date V isits Requested Visits Authorized [id number] Closed Auto-Generate d Referral 01/23/2023 02/22/2024 1 1 [facility] for referral (narrative)* Diagnostic Procedure Only (Routine) - Closed Specialty Diagnoses / Procedures Referred By Contac t Referred To Contact XR IMAGING Diagnoses Ileus (HCC) Procedures XR ABDOMEN 1V SUPINE RADIOLOGIC EXAM ABDOMEN 1 VIEW Tete Galvin PA-C [address] [place] [address] [place] [address] Referral ID Status Reason Start Date Expiration Date V isits Requested Visits Authorized [id number] Closed Auto-Generate d Referral 04/07/2023 05/06/2024 1 1 [facility] for referral (narrative)* Diagnostic Procedure Only (Routine) - Closed Specialty Diagnoses / Procedures [facility] Referred To Contact [facility] Diagnoses Encounter for screening mammogram for malignant neoplasm of breast Procedures KAITLIN SCREENING SCREENING MAMMOGRAPHY BI 2-VIEW BREAST INC Jeffy Mcneal MD [address] [place] [address] [facility] [address] [place] [address] Referral ID Status Reason Start Date Expiration Date V isits Requested Visits Authorized [id number] Closed Auto-Generate d Referral 03/20/2023 04/18/2024 1 1 [facility] for referral (narrative)* Diagnostic Procedure Only (Routine) - Closed Specialty Diagnoses / Procedures [facility] Referred To Contact BR IMAGING Diagnoses Inconclusive mammogram Procedures US BREAST LTD LEFT US BREAST UNI REAL TIME WITH IMAGE LIMITED Lorraine Zamora PA-C [address] [place] [id number] [facility] [address] [place] [address] Referral ID Status Reason Start Date Expiration Date V isits Requested Visits Authorized [id number] Closed Auto-Generate d Referral 04/30/2023 05/29/2024 1 1 [facility] for referral (narrative)* Diagnostic Procedure Only (Routine) - Closed Specialty Diagnoses / Procedures [facility] Referred To Contact MOLECULAR & FUNCTIONAL IMAGING Diagnoses RUQ pain Procedures NM HEPATOBILIARY W EF AND/OR RX HEPATOBIL SYST IMAG INC GB W/PHARMA INTERVENJ Ralf Giles MD [address] [place] [address] Molecular [facility] [address] [place] [address] Referral ID Status Reason Start Date Expiration Date V isits Requested Visits Authorized [id number] Closed Auto-Generate d Referral 06/24/2023 07/23/2024 1 1 [facility] for referral (narrative)* Outpatient Procedure (Routine) - Authorized Specialty Diagnoses / Procedures Referred By Jennaac t Referred To Contact [facility] [place] Diagnoses Abdominal pain, LLQ Procedures COLONOSCOPY DIAGNOSTIC COLONOSCOPY FLX DX W/COLLJ SPEC WHEN Ralf Martinez MD [address] [place] [address] [facility] [address] [place] [address] Referral ID Status Reason Start Date Expiration Date Visits Requested Visits Authorized [id number] Authorized Auto-Generat ed Referral 10/09/2023 10/09/2024 1 1 [facility] for referral (narrative)* Outpatient Procedure (Routine) - Closed Specialty Diagnoses / Procedures Referred By Avni t Referred To Contact [facility] [place] Diagnoses Abdominal pain, LLQ Procedures COLONOSCOPY DIAGNOSTIC COLONOSCOPY FLX DX W/COLLJ SPEC WHEN Ralf Martinez MD [address] [place] [address] [address] Referral ID Status Reason Start Date Expiration Date V isits Requested Visits Authorized [id number] Closed Auto-Generate d Referral 10/09/2023 10/09/2024 1 1 [facility] for referral (narrative)* Diagnostic Procedure Only (Routine) - Closed Specialty Diagnoses / Procedures [facility] Referred To Contact [facility] Diagnoses Inconclusive mammogram Procedures US BREAST LTD LEFT US BREAST UNI REAL TIME WITH IMAGE LIMITED Lorraine Zamora PA-C [address] [place] [address] [facility] [address] [place] [address] Referral ID Status Reason Start Date Expiration Date V isits Requested Visits Authorized [id number] Closed Auto-Generate d Referral 11/26/2023 06/25/2024 1 1 [facility] for referral (narrative)* Diagnostic Procedure Only (Routine) - Authorized Specialty Diagnoses / Procedures Referred By Contac t Referred To Contact BR IMAGING Diagnoses Abnormal mammogram Procedures US BREAST LTD LEFT US BREAST UNI REAL TIME WITH IMAGE LIMITED Jeffy Fields MD [address] [place] [address] [facility] [address] [place] [address] Referral ID Status Reason Start Date Expiration Date Visits Requested Visits Authorized [id number] Authorized Auto-Generat ed Referral 12/02/2023 12/31/2024 1 1 [facility] for referral (narrative)* Outpatient Procedure (Routine) - New Request Specialty Diagnoses / Procedures Referred By Contac t Referred To Contact [facility] [place] Diagnoses Chest pain, unspecified type Procedures ECG COMPLETE ECG ROUTINE ECG W/LEAST 12 LDS W/I&R Jeffy Fields MD [facility] [place] [address] [facility] [address] [place] [address] Referral ID Status Reason Start Date Expiration Date Visits Requested Visits Authorized [id number] New Request Auto-Generat ed Referral 03/23/2024 03/23/2025 1 1 * Outpatient Procedure (Routine) - New Request Specialty Diagnoses / Procedures Referred By Contac t Referred To Contact [facility] [place] Diagnoses Chest pain, unspecified type Procedures ECG COMPLETE ECG ROUTINE ECG W/LEAST 12 LDS W/I&R Jeffy Fields MD [facility] [place] [address] [facility] [place] [address] [place] [address] Referral ID Status Reason Start Date Expiration Date Visits Requested Visits Authorized [id number] New Request Auto-Generat ed Referral 03/23/2024 03/23/2025 1 1 [facility] for referral (narrative)* Diagnostic Procedure Only (Routine) - Closed Specialty Diagnoses / Procedures Referred By Avni t Referred To Contact XR IMAGING Diagnoses Chronic left-sided thoracic back pain Procedures XR RIBS/CHEST 3V AP RIB/OBLS/CXR LEFT RADEX RIBS UNI W/POSTEROANT CH MINIMUM 3 VIEWS Jeffy Fields MD [address] [place] [address] [place] [address] Referral ID Status Reason Start Date Expiration Date V isits Requested Visits Authorized [id number] Closed Auto-Generate d Referral 05/12/2022 06/11/2023 1 1 [facility] for referral (narrative)* Diagnostic Procedure Only (Routine) - Closed Specialty Diagnoses / Procedures Referred By Avni t Referred To Contact XR IMAGING Diagnoses Chronic pain of both knees Procedures XR KNEE GENERAL 4V AP BOTH/PA BOTH/LAT/MERC BILAT KNEE AP-WGT/LAT/MERCHANT Jeffy Fields MD [address] [place] [address] [place] [address] Referral ID Status Reason Start Date Expiration Date V isits Requested Visits Authorized [id number] Closed Auto-Generate d Referral 05/01/2021 05/31/2022 1 1 [facility] for referral (narrative)* Diagnostic Procedure Only (Routine) - New Request Specialty Diagnoses / Procedures Referred By Avni t Referred To Contact BR IMAGING Diagnoses Screening mammogram for breast cancer Procedures KAITLIN SCREENING SCREENING MAMMOGRAPHY BI 2-VIEW BREAST INC CAD Jeffy Fields MD [address] [place] [address] [facility] [address] [place] [address] Referral ID Status Reason Start Date Expiration Date Visits Requested Visits Authorized [id number] New Request Auto-Generat ed Referral 07/07/2025 1 1 [facility] for referral (narrative)* Diagnostic Procedure Only (Routine) - Closed Specialty Diagnoses / Procedures Referred By Contac t Referred To Contact BR IMAGING Diagnoses Abnormal mammogram Procedures US BREAST LTD LEFT US BREAST UNI REAL TIME WITH IMAGE LIMITED Jeffy Fields MD [address] [place] [address] [facility] [address] [place] [address] Referral ID Status Reason Start Date Expiration Date V isits Requested Visits Authorized [id number] Closed Auto-Generate d Referral 12/02/2023 12/31/2024 1 1 [facility] for referral (narrative)* Diagnostic Procedure Only (Urgent) - Closed Specialty Diagnoses / Procedures Referred By Contac t Referred To Contact XR IMAGING Diagnoses Pelvic pain Procedures XR PELVIS 1V AP RADIOLOGIC EXAMINATION PELVIS 1/2 VIEWS Francois Rosario APRN.CIVIL ENGINEERING PROJECT DESIGNER [address] [place] [address] [place] [address] Referral ID Status Reason Start Date Expiration Date V isits Requested Visits Authorized [id number] Closed Auto-Generate d Referral 06/28/2024 07/28/2025 1 1 * Diagnostic Procedure Only (Urgent) - Closed Specialty Diagnoses / Procedures Referred By Contac t Referred To Contact XR IMAGING Diagnoses Acute midline low back pain without sciatica Procedures XR LUMBAR GENERAL 3V AP/LAT/L5-S1 RADEX SPINE LUMBOSACRAL 2/3 VIEWS Francois Rosario APRN.CIVIL ENGINEERING PROJECT DESIGNER [address] [place] [address] [place] [address] Referral ID Status Reason Start Date Expiration Date V isits Requested Visits Authorized [id number] Closed Auto-Generate d Referral 06/28/2024 07/28/2025 1 1 [facility] for referral (narrative)* Diagnostic Procedure Only (Urgent) - Closed Specialty Diagnoses / Procedures Referred By Contac t Referred To Contact XR IMAGING Diagnoses Pelvic pain Procedures XR PELVIS 1V AP RADIOLOGIC EXAMINATION PELVIS 1/2 VIEWS Francois Rosario APRN.CIVIL ENGINEERING PROJECT DESIGNER [address] [place] [address] [place] [address] Referral ID Status Reason Start Date Expiration Date V isits Requested Visits Authorized [id number] Closed Auto-Generate d Referral 06/28/2024 07/28/2025 1 1 * Diagnostic Procedure Only (Urgent) - Closed Specialty Diagnoses / Procedures Referred By Contac t Referred To Contact XR IMAGING Diagnoses Acute midline low back pain without sciatica Procedures XR LUMBAR GENERAL 3V AP/LAT/L5-S1 RADEX SPINE LUMBOSACRAL 2/3 VIEWS Francois Rosario APRN.CIVIL ENGINEERING PROJECT DESIGNER [address] [place] [address] [place] [address] Referral ID Status Reason Start Date Expiration Date V isits Requested Visits Authorized [id number] Closed Auto-Generate d Referral 06/28/2024 07/28/2025 1 1 [facility] for referral (narrative)No reason for referral information [facility] Work Phone: Reason for visit Narrative* Diagnostic Procedure Only (Routine) - Closed Specialty Diagnoses / Procedures Referred By Contac t Referred To Contact BR IMAGING Diagnoses Inconclusive mammogram Procedures KAITLIN DIAGNOSTIC LEFT DIAGNOSTIC MAMMOGRAPHY COMPUTER-AIDED DETCJ UNI Lorraine Zamora PA-C [address] [place] [address] [facility] [address] [place] [address] Referral ID Status Reason Start Date Expiration Date V isits Requested Visits Authorized [id number] Closed Auto-Generate d Referral 04/30/2023 05/29/2024 1 1 [facility] for visit Narrative* Diagnostic Procedure Only (Routine) - Closed Specialty Diagnoses / Procedures Referred By Contac t Referred To Contact XR IMAGING Diagnoses Ileus (HCC) Procedures XR ABDOMEN 1V SUPINE RADIOLOGIC EXAM ABDOMEN 1 VIEW Tete Galvin PA-C [address] [facility] [place] [address] [place] [address] Referral ID Status Reason Start Date Expiration Date V isits Requested Visits Authorized [id number] Closed Auto-Generate d Referral 04/07/2023 05/06/2024 1 1 [facility] for visit Narrative* Diagnostic Procedure Only (Routine) - Closed Specialty Diagnoses / Procedures Referred By Contac t Referred To Contact BR IMAGING Diagnoses Encounter for screening mammogram for malignant neoplasm of breast Procedures KAITLIN SCREENING SCREENING MAMMOGRAPHY BI 2-VIEW BREAST INC CAD Jeffy Fields MD [address] [place] [address] [facility] [address] [place] [address] Referral ID Status Reason Start Date Expiration Date V isits Requested Visits Authorized [id number] Closed Auto-Generate d Referral 03/20/2023 04/18/2024 1 1 [facility] for visit Narrative* Outpatient Procedure (Routine) - Closed Specialty Diagnoses / Procedures Referred By Contac t Referred To Contact [facility] Diagnoses Abdominal pain, LLQ Procedures COLONOSCOPY DIAGNOSTIC COLONOSCOPY FLX DX W/COLLJ SPEC WHEN PFRMD Ralf Giles MD [address] [facility] [place] [address] [facility] [place] [address] [place] [address] Referral ID Status Reason Start Date Expiration Date V isits Requested Visits Authorized [id number] Closed Auto-Generate d Referral 10/09/2023 10/09/2024 1 1 [facility] for visit Narrative* Diagnostic Procedure Only (Routine) - Closed Specialty Diagnoses / Procedures Referred By Contac t Referred To Contact BR IMAGING Diagnoses Inconclusive mammogram Procedures KAITLIN DIAGNOSTIC LEFT DIAGNOSTIC MAMMOGRAPHY COMPUTER-AIDED DETCJ UNI Lorraine Zamora PA-C [address] [place] [address] [facility] [address] [place] [address] Referral ID Status Reason Start Date Expiration Date V isits Requested Visits Authorized [id number] Closed Auto-Generate d Referral 11/26/2023 06/25/2024 1 1 [facility] for visit Narrative* Diagnostic Procedure Only (Routine) - Closed Specialty Diagnoses / Procedures [facility] Referred To Contact XR IMAGING Diagnoses Chronic left-sided thoracic back pain Procedures XR RIBS/CHEST 3V AP RIB/OBLS/CXR LEFT RADEX RIBS UNI W/POSTEROANT CH MINIMUM 3 VIEWS Jeffy Fields MD [address] [place] [address] [place] [address] Referral ID Status Reason Start Date Expiration Date V isits Requested Visits Authorized [id number] Closed Auto-Generate d Referral 05/12/2022 06/11/2023 1 1 [facility] for visit Narrative* Diagnostic Procedure Only (Routine) - Closed Specialty Diagnoses / Procedures [facility] Referred To Contact XR IMAGING Diagnoses Chronic pain of both knees Procedures XR KNEE GENERAL 4V AP BOTH/PA BOTH/LAT/MERC BILAT KNEE AP-WGT/LAT/MERCHANT Jeffy Fields MD [address] [place] [address] [place] [address] Referral ID Status Reason Start Date Expiration Date V isits Requested Visits Authorized [id number] Closed Auto-Generate d Referral 05/01/2021 05/31/2022 1 1 [facility] for visit Narrative* Diagnostic Procedure Only (Routine) - Closed Specialty Diagnoses / Procedures [facility] Referred To Contact BR IM[facility] Diagnoses Screening mammogram for breast cancer Procedures KAITLIN SCREENING SCREENING MAMMOGRAPHY BI 2-VIEW BREAST INC CAD Jeffy Fields MD [address] [place] [address] [facility] [address] [place] [address] Referral ID Status Reason Start Date Expiration Date V isits Requested Visits Authorized [id number] Closed Auto-Generate d Referral 06/07/2024 07/07/2025 1 1 [facility] for visit Narrative* Diagnostic Procedure Only (Urgent) - Closed Specialty Diagnoses / Procedures Referred By Contac t Referred To Contact XR IMAGING Diagnoses Pelvic pain Procedures XR PELVIS 1V AP RADIOLOGIC EXAMINATION PELVIS 1/2 VIEWS Francois Rosario, ADMINISTRATIVE ACCOUNTANT.CIVIL ENGINEERING PROJECT DESIGNER [address] [place] [address] [place] [address] Referral ID Status Reason Start Date Expiration Date V isits Requested Visits Authorized [id number] Closed Auto-Generate d Referral 06/28/2024 07/28/2025 1 1 [facility] for visit Narrative* Auth/Cert (Routine) Specialty Diagnoses / Procedures Referred By Contac t Referred To Contact Diagnoses Pain in right hand Procedures VT ARTHROPLASTY INTERPHALANGEAL JT W/PROSTHETIC EA REVISION RIGHT MIDDLE FINGER INTERPHALANGEAL ARTHROPLASTY Zenon Huston MD [address] [facility] [address] [place] [address] Phone: tel: fax: Referral ID Status Reason Start Date Expiration Date Visits Re quested Visits Authorized [id number] 11/30/2024 [address] [facility] for visit Narrative* Therapy (Urgent) - Authorized Specialty Diagnoses / Procedures Referred By Contac t Referred To Contact Occupational Therapy Diagnoses Dislocation of proximal interphalangeal joint of right middle finger, subsequent encounter Procedures [place] OFFICE/OUTPATIENT [facility] 60 MINUTES Jose Martin Jean PA-C [address] [facility] [address] [place] [address] Phone: tel: fax: [facility] 1 [facility] [address] [place] [address] Phone: tel: fax: Referral ID Status Reason Start Date Expiration Date Visits Requested Visits Authorized [id number] Authorized Eval and Treat 11/30/2024 11/30/2025 99 99 [facility] Advance Directives Documents on File Type Date Recorded 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 Advance Directive(s) 02/20/2021 2:26 PM Advance Directive(s) 08/25/2018 9:41 AM Advance Directive(s) 08/23/2018 8:44 AM Advance Directive(s) 03/31/2009 3:36 PM Advance Directive Response Recorded Date/ Time Living Will No January 27, 2021 1 :24am Power of President [employer] Company No January 27, 2021 1:24am Documents on File Type Date Recorded 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 Advance Directive(s) 02/20/2021 2:26 PM Advance Directive(s) 03/31/2009 3:36 PM Documents on File Type Date Recorded 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 Advance Directive(s) 02/20/2021 2:26 PM Advance Directive(s) 03/31/2009 3:36 PM Advance Directive Response Recorded Date/ Time Living Will No February 28, 2023 1 0:29am Power of President [employer] No February 28, 2023 10:29am Advance Directive Response Recorded Date/ Time Name of Medical Power of President Finance Company MAGDI ALBERTS - June 08, 2023 3:29pm Living Will Yes June 08 3:29pm Power of President [employer] Yes June 08, 2023 3:29pm Date Activated Date Inactivated Comments 02/12/2024 12:29 PM 02/12/2024 7:07 PM Date Activated Date Inactivated Comments 02/12/2024 12:29 PM 02/12/2024 7:07 PM Documents on File Type Date Recorded 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 Advance Directives and Livin g Will 01/06/2025 8:04 AM Power of President [employer] 01/06/2025 8:02 AM Date Activated Date Inactivated Comments 01/06/2025 7:42 AM 01/06/2025 4:02 PM Date Activated Date Inactivated Comments 02/12/2024 12:29 PM 02/12/2024 7:07 PM Documents on File Type Date Recorded 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 Yes June 08, 2023 3:29pm Chief Complaint and Reason for Visit Chief Complaint RIGHT FOREFOOT Chief Complaint Amb Documentation ABN ECHO (DIAMOND) abd Reason for Visit Essential hypertensi on Non-rheumatic mitral regurgitation Chief Complaint Amb Documentation ABN ECHO (DIAMOND) abd LOWER ABD PAIN Reason for Visit Essential hypertensi on Non-rheumatic mitral regurgitation Chief Complaint Admit Date 1 Y FU February 28, 2025 10:42 am Reason for Visit Admit Date Chest pain February 28, 2025 10:42 am Essential hypertension February 28, 2025 10 :42am Non-rheumatic mitral regurgitation February 28, 2025 10:42am Summary Purpose Family History Relationship Condition Age at Onset Recorded Date/T shaw mother Myocardial infarction 72 Reason for Referral Specialty Diagnoses / Procedures Referred By Contac t Referred To Contact Diagnoses RLS (restless legs syndrome) Mimi Elizondo, ADMINISTRATIVE ACCOUNTANT.CIVIL ENGINEERING PROJECT DESIGNER [address] [place] [address] Referral ID Status Reason Start Date Expiration Date Visits Re quested Visits Authorized [id number] Closed 1 1 Specialty Diagnoses / Procedures Referred By Contac t Referred To Contact Occupational Therapy Diagnoses Dislocation of finger PIP joint, initial encounter Procedures [place] OFFICE/OUTPATIENT [facility] 60 MINUTES Zenon Huston MD 1 [facility] [address] [place] [address] [facility] [address] [place] [address] Referral ID Status Reason Start Date Expiration Date Visits Requested Visits Authorized [id number] Authorized Eval and Treat 02/09/2024 02/08/2025 99 99 Specialty Diagnoses / Procedures Referred By Contac t Referred To Contact General Surgery Diagnoses Acute constipation Abdominal pain, LLQ Right lower quadrant abdominal pain Procedures CONSULT TO GENERAL SURGERY OFFICE/OUTPATIENT [facility] 60-74 MINUTES Jeffy Fields MD [address] [place] [address] Referral ID Status Reason Start Date Expiration Date V isits Requested Visits Authorized [id number] Closed PCP Requested Referral 06/23/2023 06/22/2024 1 1 Specialty Diagnoses / Procedures Referred By Contac t Referred To Contact Gastroenterology Diagnoses RUQ pain Abnormal US (ultrasound) of abdomen Procedures CONSULT TO GASTROENTEROLOGY OFFICE/OUTPATIENT [facility] 60-74 MINUTES Jeffy Fields MD [address] [place] [id number] Referral ID Status Reason Start Date Expiration Date Visits Requested Visits Authorized [id number] Authorized PCP Requested Referral 02/03/2023 02/03/2024 1 1 Specialty Diagnoses / Procedures Referred By Contac t Referred To Contact Cardiology Diagnoses Valvular heart disease Procedures CONSULT TO CARDIOLOGY OFFICE/OUTPATIENT [facility] 60-74 [place] [address] [place], [place] [id number] Referral ID Status Reason Start Date Expiration Date Visits Requested Visits Authorized [id number] Authorized PCP Requested Referral 02/02/2023 02/02/2024 1 1 Specialty Diagnoses / Procedures Referred By Contac t Referred To Contact Diagnoses RLS (restless legs syndrome) Radha Devi PA-C [address] [place] [address] Referral ID Status Reason Start Date Expiration Date V isits Requested Visits Authorized [id number] Pending Review 1 1 Specialty Diagnoses / Procedures Referred By Contac t Referred To Contact Diagnoses RLS (restless legs syndrome) Jeffy Clark Jr., MD [address] [address] Referral ID Status Reason Start Date Expiration Date V isits Requested Visits Authorized [id number] Pending Review 1 1 Specialty Diagnoses / Procedures Referred By Contac t Referred To Contact [facility] Diagnoses Chronic left-sided thoracic back pain Procedures CONSULT TO PHYSICAL THERAPY PHYSICAL THERAPY EVALUATION HIGH COMPLEX 45 MINS Jeffy Fields MD [facility] [place] [id number] [facility] [place] [address] [place] [address] Referral ID Status Reason Start Date Expiration Date Visits Requested Visits Authorized [id number] Authorized PCP Requested Referral Auto-Generate d Referral 05/12/2022 05/12/2023 99 99 Specialty Diagnoses / Procedures Referred By Contac t Referred To Contact XR IMAGING Diagnoses Chronic left-sided thoracic back pain Procedures XR RIBS/CHEST 3V AP RIB/OBLS/CXR LEFT RADEX RIBS UNI W/POSTEROANT CH MINIMUM 3 VIEWS Jeffy Fields MD [address] [place] [address] Xr Imaging Referral ID Status Reason Start Date Expiration Date V isits Requested Visits Authorized [id number] Closed Auto-Generate d Referral 05/12/2022 06/11/2023 1 1 Specialty Diagnoses / Procedures Referred By Contac t Referred To Contact Diagnoses RLS (restless legs syndrome) Tete Sal, YOLY.CIVIL ENGINEERING PROJECT DESIGNER [address] [place] [address] Referral ID Status Reason Start Date Expiration Date V isits Requested Visits Authorized [id number] Pending Review 1 1 Additional Source Comments Source Comments (unrecognize d section and content) In the event this informatio n is protected by the Federal Confidentiality of Alcohol and Drug Abuse Patient Records regulations: The Federal rules restrict any use of the information to criminally investigate or prosecute any alcohol or drug abuse patient.[facility] the event this information is protected by the Federal Confidentiality of Alcohol and Drug Abuse Patient Records regulations: The Federal rules restrict any use of the information to criminally investigate or prosecute any alcohol or drug abuse patient.[facility]In the event this information is protected by the Federal Confidentiality of Alcohol and Drug Abuse Patient Records regulations: The Federal rules restrict any use of the information to criminally investigate or prosecute any alcohol or drug abuse patient.[facility]In the event this information is protected by the Federal Confidentiality of Alcohol and Drug Abuse Patient Records regulations: The Federal rules restrict any use of the information to criminally investigate or prosecute any alcohol or drug abuse patient.[facility]In the event this information is protected by the Federal Confidentiality of Alcohol and Drug Abuse Patient Records regulations: The Federal rules restrict any use of the information to criminally investigate or prosecute any alcohol or drug abuse patient.[facility]In the event this information is protected by the Federal Confidentiality of Alcohol and Drug Abuse Patient Records regulations: The Federal rules restrict any use of the information to criminally investigate or prosecute any alcohol or drug abuse patient.[facility]In the event this information is protected by the Federal Confidentiality of Alcohol and Drug Abuse Patient Records regulations: The Federal rules restrict any use of the information to criminally investigate or prosecute any alcohol or drug abuse patient.[facility]In the event this information is protected by the Federal Confidentiality of Alcohol and Drug Abuse Patient Records regulations: The Federal rules restrict any use of the information to criminally investigate or prosecute any alcohol or drug abuse patient.[facility]In the event this information is protected by the Federal Confidentiality of Alcohol and Drug Abuse Patient Records regulations: The Federal rules restrict any use of the information to criminally investigate or prosecute any alcohol or drug abuse patient.[facility]In the event this information is protected by the Federal Confidentiality of Alcohol and Drug Abuse Patient Records regulations: The Federal rules restrict any use of the information to criminally investigate or prosecute any alcohol or drug abuse patient.[facility]In the event this information is protected by the Federal Confidentiality of Alcohol and Drug Abuse Patient Records regulations: The Federal rules restrict any use of the information to criminally investigate or prosecute any alcohol or drug abuse patient.[facility]In the event this information is protected by the Federal Confidentiality of Alcohol and Drug Abuse Patient Records regulations: The Federal rules restrict any use of the information to criminally investigate or prosecute any alcohol or drug abuse patient.[facility] CenterIn the event this information is protected by the Federal Confidentiality of Alcohol and Drug Abuse Patient Records regulations: The Federal rules restrict any use of the information to criminally investigate or prosecute any alcohol or drug abuse patient.[facility]In the event this information is protected by the Federal Confidentiality of Alcohol and Drug Abuse Patient Records regulations: The Federal rules restrict any use of the information to criminally investigate or prosecute any alcohol or drug abuse patient.[facility] CenterIn the event this information is protected by the Federal Confidentiality of Alcohol and Drug Abuse Patient Records regulations: The Federal rules restrict any use of the information to criminally investigate or prosecute any alcohol or drug abuse patient.[facility] CenterIn the event this information is protected by the Federal Confidentiality of Alcohol and Drug Abuse Patient Records regulations: The Federal rules restrict any use of the information to criminally investigate or prosecute any alcohol or drug abuse patient.[facility] CenterIn the event this information is protected by the Federal Confidentiality of Alcohol and Drug Abuse Patient Records regulations: The Federal rules restrict any use of the information to criminally investigate or prosecute any alcohol or drug abuse patient.[facility] CenterIn the event this information is protected by the Federal Confidentiality of Alcohol and Drug Abuse Patient Records regulations: The Federal rules restrict any use of the information to criminally investigate or prosecute any alcohol or drug abuse patient.[facility] CenterIn the event this information is protected by the Federal Confidentiality of Alcohol and Drug Abuse Patient Records regulations: The Federal rules restrict any use of the information to criminally investigate or prosecute any alcohol or drug abuse patient.[facility] CenterIn the event this information is protected by the Federal Confidentiality of Alcohol and Drug Abuse Patient Records regulations: The Federal rules restrict any use of the information to criminally investigate or prosecute any alcohol or drug abuse patient.[facility] CenterIn the event this information is protected by the Federal Confidentiality of Alcohol and Drug Abuse Patient Records regulations: The Federal rules restrict any use of the information to criminally investigate or prosecute any alcohol or drug abuse patient.[facility] CenterIn the event this information is protected by the Federal Confidentiality of Alcohol and Drug Abuse Patient Records regulations: The Federal rules restrict any use of the information to criminally investigate or prosecute any alcohol or drug abuse patient.[facility] CenterIn the event this information is protected by the Federal Confidentiality of Alcohol and Drug Abuse Patient Records regulations: The Federal rules restrict any use of the information to criminally investigate or prosecute any alcohol or drug abuse patient.[facility] CenterIn the event this information is protected by the Federal Confidentiality of Alcohol and Drug Abuse Patient Records regulations: The Federal rules restrict any use of the information to criminally investigate or prosecute any alcohol or drug abuse patient.[facility] CenterIn the event this information is protected by the Federal Confidentiality of Alcohol and Drug Abuse Patient Records regulations: The Federal rules restrict any use of the information to criminally investigate or prosecute any alcohol or drug abuse patient.[facility] CenterIn the event this information is protected by the Federal Confidentiality of Alcohol and Drug Abuse Patient Records regulations: The Federal rules restrict any use of the information to criminally investigate or prosecute any alcohol or drug abuse patient.[facility] CenterIn the event this information is protected by the Federal Confidentiality of Alcohol and Drug Abuse Patient Records regulations: The Federal rules restrict any use of the information to criminally investigate or prosecute any alcohol or drug abuse patient.[facility] CenterIn the event this information is protected by the Federal Confidentiality of Alcohol and Drug Abuse Patient Records regulations: The Federal rules restrict any use of the information to criminally investigate or prosecute any alcohol or drug abuse patient.[facility] CenterIn the event this information is protected by the Federal Confidentiality of Alcohol and Drug Abuse Patient Records regulations: The Federal rules restrict any use of the information to criminally investigate or prosecute any alcohol or drug abuse patient.[facility] CenterIn the event this information is protected by the Federal Confidentiality of Alcohol and Drug Abuse Patient Records regulations: The Federal rules restrict any use of the information to criminally investigate or prosecute any alcohol or drug abuse patient.[facility] CenterIn the event this information is protected by the Federal Confidentiality of Alcohol and Drug Abuse Patient Records regulations: The Federal rules restrict any use of the information to criminally investigate or prosecute any alcohol or drug abuse patient.[facility] CenterIn the event this information is protected by the Federal Confidentiality of Alcohol and Drug Abuse Patient Records regulations: The Federal rules restrict any use of the information to criminally investigate or prosecute any alcohol or drug abuse patient.[facility] CenterIn the event this information is protected by the Federal Confidentiality of Alcohol and Drug Abuse Patient Records regulations: The Federal rules restrict any use of the information to criminally investigate or prosecute any alcohol or drug abuse patient.[facility] CenterIn the event this information is protected by the Federal Confidentiality of Alcohol and Drug Abuse Patient Records regulations: The Federal rules restrict any use of the information to criminally investigate or prosecute any alcohol or drug abuse patient.[facility] CenterIn the event this information is protected by the Federal Confidentiality of Alcohol and Drug Abuse Patient Records regulations: The Federal rules restrict any use of the information to criminally investigate or prosecute any alcohol or drug abuse patient.[facility] CenterIn the event this information is protected by the Federal Confidentiality of Alcohol and Drug Abuse Patient Records regulations: The Federal rules restrict any use of the information to criminally investigate or prosecute any alcohol or drug abuse patient.[facility] CenterIn the event this information is protected by the Federal Confidentiality of Alcohol and Drug Abuse Patient Records regulations: The Federal rules restrict any use of the information to criminally investigate or prosecute any alcohol or drug abuse patient.[facility] CenterIn the event this information is protected by the Federal Confidentiality of Alcohol and Drug Abuse Patient Records regulations: The Federal rules restrict any use of the information to criminally investigate or prosecute any alcohol or drug abuse patient.[facility] CenterIn the event this information is protected by the Federal Confidentiality of Alcohol and Drug Abuse Patient Records regulations: The Federal rules restrict any use of the information to criminally investigate or prosecute any alcohol or drug abuse patient.[facility] CenterIn the event this information is protected by the Federal Confidentiality of Alcohol and Drug Abuse Patient Records regulations: The Federal rules restrict any use of the information to criminally investigate or prosecute any alcohol or drug abuse patient.[facility] CenterIn the event this information is protected by the Federal Confidentiality of Alcohol and Drug Abuse Patient Records regulations: The Federal rules restrict any use of the information to criminally investigate or prosecute any alcohol or drug abuse patient.[facility] CenterIn the event this information is protected by the Federal Confidentiality of Alcohol and Drug Abuse Patient Records regulations: The Federal rules restrict any use of the information to criminally investigate or prosecute any alcohol or drug abuse patient.[facility] CenterIn the event this information is protected by the Federal Confidentiality of Alcohol and Drug Abuse Patient Records regulations: The Federal rules restrict any use of the information to criminally investigate or prosecute any alcohol or drug abuse patient.[facility] CenterIn the event this information is protected by the Federal Confidentiality of Alcohol and Drug Abuse Patient Records regulations: The Federal rules restrict any use of the information to criminally investigate or prosecute any alcohol or drug abuse patient.[facility] CenterIn the event this information is protected by the Federal Confidentiality of Alcohol and Drug Abuse Patient Records regulations: The Federal rules restrict any use of the information to criminally investigate or prosecute any alcohol or drug abuse patient.[facility] CenterIn the event this information is protected by the Federal Confidentiality of Alcohol and Drug Abuse Patient Records regulations: The Federal rules restrict any use of the information to criminally investigate or prosecute any alcohol or drug abuse patient.[facility] CenterIn the event this information is protected by the Federal Confidentiality of Alcohol and Drug Abuse Patient Records regulations: The Federal rules restrict any use of the information to criminally investigate or prosecute any alcohol or drug abuse patient.[facility] CenterIn the event this information is protected by the Federal Confidentiality of Alcohol and Drug Abuse Patient Records regulations: The Federal rules restrict any use of the information to criminally investigate or prosecute any alcohol or drug abuse patient.[facility] CenterIn the event this information is protected by the Federal Confidentiality of Alcohol and Drug Abuse Patient Records regulations: The Federal rules restrict any use of the information to criminally investigate or prosecute any alcohol or drug abuse patient.[facility] CenterIn the event this information is protected by the Federal Confidentiality of Alcohol and Drug Abuse Patient Records regulations: The Federal rules restrict any use of the information to criminally investigate or prosecute any alcohol or drug abuse patient.[facility] CenterIn the event this information is protected by the Federal Confidentiality of Alcohol and Drug Abuse Patient Records regulations: The Federal rules restrict any use of the information to criminally investigate or prosecute any alcohol or drug abuse patient.[facility] CenterIn the event this information is protected by the Federal Confidentiality of Alcohol and Drug Abuse Patient Records regulations: The Federal rules restrict any use of the information to criminally investigate or prosecute any alcohol or drug abuse patient.[facility] CenterIn the event this information is protected by the Federal Confidentiality of Alcohol and Drug Abuse Patient Records regulations: The Federal rules restrict any use of the information to criminally investigate or prosecute any alcohol or drug abuse patient.[facility] CenterIn the event this information is protected by the Federal Confidentiality of Alcohol and Drug Abuse Patient Records regulations: The Federal rules restrict any use of the information to criminally investigate or prosecute any alcohol or drug abuse patient.[facility] CenterIn the event this information is protected by the Federal Confidentiality of Alcohol and Drug Abuse Patient Records regulations: The Federal rules restrict any use of the information to criminally investigate or prosecute any alcohol or drug abuse patient.[facility] CenterIn the event this information is protected by the Federal Confidentiality of Alcohol and Drug Abuse Patient Records regulations: The Federal rules restrict any use of the information to criminally investigate or prosecute any alcohol or drug abuse patient.[facility] CenterIn the event this information is protected by the Federal Confidentiality of Alcohol and Drug Abuse Patient Records regulations: The Federal rules restrict any use of the information to criminally investigate or prosecute any alcohol or drug abuse patient.[facility]In the event this information is protected by the Federal Confidentiality of Alcohol and Drug Abuse Patient Records regulations: The Federal rules restrict any use of the information to criminally investigate or prosecute any alcohol or drug abuse patient.[facility] CenterIn the event this information is protected by the Federal Confidentiality of Alcohol and Drug Abuse Patient Records regulations: The Federal rules restrict any use of the information to criminally investigate or prosecute any alcohol or drug abuse patient.[facility] CenterIn the event this information is protected by the Federal Confidentiality of Alcohol and Drug Abuse Patient Records regulations: The Federal rules restrict any use of the information to criminally investigate or prosecute any alcohol or drug abuse patient.[facility] CenterIn the event this information is protected by the Federal Confidentiality of Alcohol and Drug Abuse Patient Records regulations: The Federal rules restrict any use of the information to criminally investigate or prosecute any alcohol or drug abuse patient.[facility] CenterIn the event this information is protected by the Federal Confidentiality of Alcohol and Drug Abuse Patient Records regulations: The Federal rules restrict any use of the information to criminally investigate or prosecute any alcohol or drug abuse patient.[facility] CenterIn the event this information is protected by the Federal Confidentiality of Alcohol and Drug Abuse Patient Records regulations: The Federal rules restrict any use of the information to criminally investigate or prosecute any alcohol or drug abuse patient.[facility] CenterIn the event this information is protected by the Federal Confidentiality of Alcohol and Drug Abuse Patient Records regulations: The Federal rules restrict any use of the information to criminally investigate or prosecute any alcohol or drug abuse patient.[facility] CenterIn the event this information is protected by the Federal Confidentiality of Alcohol and Drug Abuse Patient Records regulations: The Federal rules restrict any use of the information to criminally investigate or prosecute any alcohol or drug abuse patient.[facility] CenterIn the event this information is protected by the Federal Confidentiality of Alcohol and Drug Abuse Patient Records regulations: The Federal rules restrict any use of the information to criminally investigate or prosecute any alcohol or drug abuse patient.[facility] CenterIn the event this information is protected by the Federal Confidentiality of Alcohol and Drug Abuse Patient Records regulations: The Federal rules restrict any use of the information to criminally investigate or prosecute any alcohol or drug abuse patient.[facility] CenterIn the event this information is protected by the Federal Confidentiality of Alcohol and Drug Abuse Patient Records regulations: The Federal rules restrict any use of the information to criminally investigate or prosecute any alcohol or drug abuse patient.[facility] CenterIn the event this information is protected by the Federal Confidentiality of Alcohol and Drug Abuse Patient Records regulations: The Federal rules restrict any use of the information to criminally investigate or prosecute any alcohol or drug abuse patient.[facility] CenterIn the event this information is protected by the Federal Confidentiality of Alcohol and Drug Abuse Patient Records regulations: The Federal rules restrict any use of the information to criminally investigate or prosecute any alcohol or drug abuse patient.[facility] CenterIn the event this information is protected by the Federal Confidentiality of Alcohol and Drug Abuse Patient Records regulations: The Federal rules restrict any use of the information to criminally investigate or prosecute any alcohol or drug abuse patient.[facility] CenterIn the event this information is protected by the Federal Confidentiality of Alcohol and Drug Abuse Patient Records regulations: The Federal rules restrict any use of the information to criminally investigate or prosecute any alcohol or drug abuse patient.[facility] CenterIn the event this information is protected by the Federal Confidentiality of Alcohol and Drug Abuse Patient Records regulations: The Federal rules restrict any use of the information to criminally investigate or prosecute any alcohol or drug abuse patient.[facility] CenterIn the event this information is protected by the Federal Confidentiality of Alcohol and Drug Abuse Patient Records regulations: The Federal rules restrict any use of the information to criminally investigate or prosecute any alcohol or drug abuse patient.[facility] CenterIn the event this information is protected by the Federal Confidentiality of Alcohol and Drug Abuse Patient Records regulations: The Federal rules restrict any use of the information to criminally investigate or prosecute any alcohol or drug abuse patient.[facility] CenterIn the event this information is protected by the Federal Confidentiality of Alcohol and Drug Abuse Patient Records regulations: The Federal rules restrict any use of the information to criminally investigate or prosecute any alcohol or drug abuse patient.[facility] CenterIn the event this information is protected by the Federal Confidentiality of Alcohol and Drug Abuse Patient Records regulations: The Federal rules restrict any use of the information to criminally investigate or prosecute any alcohol or drug abuse patient.[facility] CenterIn the event this information is protected by the Federal Confidentiality of Alcohol and Drug Abuse Patient Records regulations: The Federal rules restrict any use of the information to criminally investigate or prosecute any alcohol or drug abuse patient.[facility] CenterIn the event this information is protected by the Federal Confidentiality of Alcohol and Drug Abuse Patient Records regulations: The Federal rules restrict any use of the information to criminally investigate or prosecute any alcohol or drug abuse patient.[facility] CenterIn the event this information is protected by the Federal Confidentiality of Alcohol and Drug Abuse Patient Records regulations: The Federal rules restrict any use of the information to criminally investigate or prosecute any alcohol or drug abuse patient.[facility] CenterIn the event this information is protected by the Federal Confidentiality of Alcohol and Drug Abuse Patient Records regulations: The Federal rules restrict any use of the information to criminally investigate or prosecute any alcohol or drug abuse patient.[facility] CenterIn the event this information is protected by the Federal Confidentiality of Alcohol and Drug Abuse Patient Records regulations: The Federal rules restrict any use of the information to criminally investigate or prosecute any alcohol or drug abuse patient.[facility] CenterIn the event this information is protected by the Federal Confidentiality of Alcohol and Drug Abuse Patient Records regulations: The Federal rules restrict any use of the information to criminally investigate or prosecute any alcohol or drug abuse patient.[facility] CenterIn the event this information is protected by the Federal Confidentiality of Alcohol and Drug Abuse Patient Records regulations: The Federal rules restrict any use of the information to criminally investigate or prosecute any alcohol or drug abuse patient.[facility] CenterIn the event this information is protected by the Federal Confidentiality of Alcohol and Drug Abuse Patient Records regulations: The Federal rules restrict any use of the information to criminally investigate or prosecute any alcohol or drug abuse patient.[facility] CenterIn the event this information is protected by the Federal Confidentiality of Alcohol and Drug Abuse Patient Records regulations: The Federal rules restrict any use of the information to criminally investigate or prosecute any alcohol or drug abuse patient.[facility] CenterIn the event this information is protected by the Federal Confidentiality of Alcohol and Drug Abuse Patient Records regulations: The Federal rules restrict any use of the information to criminally investigate or prosecute any alcohol or drug abuse patient.[facility] CenterIn the event this information is protected by the Federal Confidentiality of Alcohol and Drug Abuse Patient Records regulations: The Federal rules restrict any use of the information to criminally investigate or prosecute any alcohol or drug abuse patient.[facility] CenterIn the event this information is protected by the Federal Confidentiality of Alcohol and Drug Abuse Patient Records regulations: The Federal rules restrict any use of the information to criminally investigate or prosecute any alcohol or drug abuse patient.[facility] CenterIn the event this information is protected by the Federal Confidentiality of Alcohol and Drug Abuse Patient Records regulations: The Federal rules restrict any use of the information to criminally investigate or prosecute any alcohol or drug abuse patient.[facility] CenterIn the event this information is protected by the Federal Confidentiality of Alcohol and Drug Abuse Patient Records regulations: The Federal rules restrict any use of the information to criminally investigate or prosecute any alcohol or drug abuse patient.[facility] CenterIn the event this information is protected by the Federal Confidentiality of Alcohol and Drug Abuse Patient Records regulations: The Federal rules restrict any use of the information to criminally investigate or prosecute any alcohol or drug abuse patient.[facility] CenterIn the event this information is protected by the Federal Confidentiality of Alcohol and Drug Abuse Patient Records regulations: The Federal rules restrict any use of the information to criminally investigate or prosecute any alcohol or drug abuse patient.[facility] CenterIn the event this information is protected by the Federal Confidentiality of Alcohol and Drug Abuse Patient Records regulations: The Federal rules restrict any use of the information to criminally investigate or prosecute any alcohol or drug abuse patient.[facility] CenterIn the event this information is protected by the Federal Confidentiality of Alcohol and Drug Abuse Patient Records regulations: The Federal rules restrict any use of the information to criminally investigate or prosecute any alcohol or drug abuse patient.[facility] CenterIn the event this information is protected by the Federal Confidentiality of Alcohol and Drug Abuse Patient Records regulations: The Federal rules restrict any use of the information to criminally investigate or prosecute any alcohol or drug abuse patient.[facility] CenterIn the event this information is protected by the Federal Confidentiality of Alcohol and Drug Abuse Patient Records regulations: The Federal rules restrict any use of the information to criminally investigate or prosecute any alcohol or drug abuse patient.[facility] CenterIn the event this information is protected by the Federal Confidentiality of Alcohol and Drug Abuse Patient Records regulations: The Federal rules restrict any use of the information to criminally investigate or prosecute any alcohol or drug abuse patient.[facility] CenterIn the event this information is protected by the Federal Confidentiality of Alcohol and Drug Abuse Patient Records regulations: The Federal rules restrict any use of the information to criminally investigate or prosecute any alcohol or drug abuse patient.[facility] CenterIn the event this information is protected by the Federal Confidentiality of Alcohol and Drug Abuse Patient Records regulations: The Federal rules restrict any use of the information to criminally investigate or prosecute any alcohol or drug abuse patient.[facility] CenterIn the event this information is protected by the Federal Confidentiality of Alcohol and Drug Abuse Patient Records regulations: The Federal rules restrict any use of the information to criminally investigate or prosecute any alcohol or drug abuse patient.[facility] CenterIn the event this information is protected by the Federal Confidentiality of Alcohol and Drug Abuse Patient Records regulations: The Federal rules restrict any use of the information to criminally investigate or prosecute any alcohol or drug abuse patient.[facility] CenterIn the event this information is protected by the Federal Confidentiality of Alcohol and Drug Abuse Patient Records regulations: The Federal rules restrict any use of the information to criminally investigate or prosecute any alcohol or drug abuse patient.[facility] CenterIn the event this information is protected by the Federal Confidentiality of Alcohol and Drug Abuse Patient Records regulations: The Federal rules restrict any use of the information to criminally investigate or prosecute any alcohol or drug abuse patient.[facility] CenterIn the event this information is protected by the Federal Confidentiality of Alcohol and Drug Abuse Patient Records regulations: The Federal rules restrict any use of the information to criminally investigate or prosecute any alcohol or drug abuse patient.[facility] CenterIn the event this information is protected by the Federal Confidentiality of Alcohol and Drug Abuse Patient Records regulations: The Federal rules restrict any use of the information to criminally investigate or prosecute any alcohol or drug abuse patient.[facility] CenterIn the event this information is protected by the Federal Confidentiality of Alcohol and Drug Abuse Patient Records regulations: The Federal rules restrict any use of the information to criminally investigate or prosecute any alcohol or drug abuse patient.[facility] CenterIn the event this information is protected by the Federal Confidentiality of Alcohol and Drug Abuse Patient Records regulations: The Federal rules restrict any use of the information to criminally investigate or prosecute any alcohol or drug abuse patient.[facility] CenterIn the event this information is protected by the Federal Confidentiality of Alcohol and Drug Abuse Patient Records regulations: The Federal rules restrict any use of the information to criminally investigate or prosecute any alcohol or drug abuse patient.[facility] CenterIn the event this information is protected by the Federal Confidentiality of Alcohol and Drug Abuse Patient Records regulations: The Federal rules restrict any use of the information to criminally investigate or prosecute any alcohol or drug abuse patient.[facility] CenterIn the event this information is protected by the Federal Confidentiality of Alcohol and Drug Abuse Patient Records regulations: The Federal rules restrict any use of the information to criminally investigate or prosecute any alcohol or drug abuse patient.[facility] CenterIn the event this information is protected by the Federal Confidentiality of Alcohol and Drug Abuse Patient Records regulations: The Federal rules restrict any use of the information to criminally investigate or prosecute any alcohol or drug abuse patient.[facility] Reason for Visit (unrecogniz ed section and content) Reason Comments PT Discharge Specialty Diagnoses / Procedures Referred By Contac t Referred To Contact [facility] Diagnoses Chronic left-sided thoracic back pain Procedures CONSULT TO PHYSICAL THERAPY PHYSICAL THERAPY EVALUATION HIGH COMPLEX 45 MINS Jeffy Fields MD [address] [place] [address] [facility] [place] [address] [place] [address] Referral ID Status Reason Start Date Expiration Date Visits Requested Visits Authorized [id number] Authorized PCP Requested Referral Auto-Generate d Referral 05/12/2022 05/12/2023 99 99 Reason Comments Physical Therapy Reason Onset Date Comments Refill Request 12/09/2021 Reason Comments Right Hip Pain Pre-Op Exam Reason Comments Results Reason Comments Blood Pressure Check Reason Comments Established [facility] 3 month follow up RLS Reason Comments Pain, Back lower back pain rate d 6, unknown time, pain with urination Reason Comments Recheck Follow up from [facility] on 03/27; back pain is getting better Reason Onset Date Comments Refill Request 03/04/2022 Reason Comments Breast Problem Left breast - inward nipple & darker color Reason Comments Radiology US Specialty Diagnoses / Procedures Referred By Avni t Referred To Contact [facility] Diagnoses Inversion of left nipple Nipple anomaly Procedures US BREAST LTD LT US BREAST UNI REAL TIME WITH IMAGE LIMITED Mónica Garcia, YOLY.CIVIL ENGINEERING PROJECT DESIGNER [address] [place] [address] [facility] [address] [place] [address] Referral ID Status Reason Start Date Expiration Date V isits Requested Visits Authorized [id number] Closed Auto-Generate d Referral 04/10/2022 05/10/2023 1 1 Reason Comments Radiology Mammogram Specialty Diagnoses / Procedures [facility] Diagnoses Inversion of left nipple Nipple anomaly Procedures [facility] LT DIAGNOSTIC MAMMOGRAPHY COMPUTER-AIDED DETCJ UNI RadhaMónica, ADMINISTRATIVE ACCOUNTANT.CIVIL ENGINEERING PROJECT DESIGNER [address] [place] [address] [facility] [address] [address] Referral ID Status Reason Start Date Expiration Date V isits Requested Visits Authorized [id number] Closed Auto-Generate d Referral 04/10/2022 05/10/2023 1 1 Reason Comments 6 Month Exam Reason Comments PT Eval Reason Comments Established Patient 3 month follow up Reason Onset Date Comments Refill Request 07/09/2022 Reason Comments Leg Cramps Reason Comments Patient Update Reason Comments Acute Visit L ring finger- start ed 07/28 she noticed change in color in tip of finger when she was out in the cold, finger turned white. She put the finger in warm water and then the color returned. Reason Comments color change of finger Reason Comments Follow Up Refills needed Reason Comments Insurance Authorization Lyrica 100 MG Reason Comments Follow Up Reason Comments Results Reason Comments Follow Up Reason Comments Refill Request Reason Comments ER F/U Reason Comments Constipation BM this morning hard stools she is taking Miralax as needed. Dull intermittent RUQ and LLQ pain Reason Comments New Patient Pt reported slight i mprovement RLS, decreased, sleep quality, increased dreams. Reason Comments Medication Problem Reason Comments Blood Pressure Reason Comments Results Reason Comments Mammogram Result Call Back Reason Comments Consult LLQ PAIN Specialty Diagnoses / Procedures Referred By Contac t Referred To Contact General Surgery Diagnoses Acute constipation Abdominal pain, LLQ Right lower quadrant abdominal pain Procedures CONSULT TO GENERAL SURGERY OFFICE/OUTPATIENT NEW HIGH MDM 60-74 MINUTES Jeffy Fields MD [address] [place] [address] Referral ID Status Reason Start Date Expiration Date V isits Requested Visits Authorized [id number] Closed PCP Requested Referral 06/23/2023 06/22/2024 1 1 Reason Comments Radiology US Specialty Diagnoses / Procedures Referred By Contac t Referred To Contact [facility] Diagnoses RUQ pain Procedures US ABD RIGHT UPPER QUADRANT US ABDOMINAL REAL TIME W/IMAGE LIMITED Jeffy Fields MD [address] [place] [address] [place] [address] Referral ID Status Reason Start Date Expiration Date V isits Requested Visits Authorized [id number] Closed Auto-Generate d Referral 01/23/2023 02/22/2024 1 1 Specialty Diagnoses / Procedures Referred By Contac t Referred To Contact [facility] Diagnoses Inconclusive mammogram Procedures US BREAST LTD LEFT US BREAST UNI REAL TIME WITH IMAGE LIMITED Lorraine Zamora PA-C [address] [place] [address] [facility] [address] [place] [address] Referral ID Status Reason Start Date Expiration Date V isits Requested Visits Authorized [id number] Closed Auto-Generate d Referral 04/30/2023 05/29/2024 1 1 Reason Comments Radiology NM Specialty Diagnoses / Procedures Referred By Contac t Referred To Contact [facility] Diagnoses RUQ pain Procedures NM HEPATOBILIARY W EF AND/OR RX HEPATOBIL SYST IMAG INC GB W/PHARMA INTERVENJ Ralf Giles MD [address] [place] [address] [facility] [address] [place] [address] Referral ID Status Reason Start Date Expiration Date V isits Requested Visits Authorized [id number] Closed Auto-Generate d Referral 06/24/2023 07/23/2024 1 1 Reason Onset Date Comments Refill Request 07/24/2023 Reason Comments Follow Up LLQ pain RUQ abd daniel n, HIDA scan 07/03/23 06/24/23 TERELL Reason Comments Follow Up 10/15/23 Colonoscopy Referral ID Status Reason Start Date Expiration Date V isits Requested Visits Authorized [id number] Closed Auto-Generate d Referral 11/26/2023 06/25/2024 1 1 Reason Comments Follow Up Pt reported recent i llness, RLS controlled . Reason Comments Cough Chest congestion, si nus drainage x 01/04 Reason Comments New Patient Right middle finger dislocation Specialty Diagnoses / Procedures Referred By Avni t Referred To Contact Diagnoses Dislocation of proximal interphalangeal joint of unspecified finger, initial encounter Procedures VT OPEN TX INTERPHALANGEAL JOINT DISLOCATION VT ARTHROPLASTY INTERPHALANGEAL JOINT EACH OPEN REDUCTION RIGHT MIDDLE FINGER PROXIMAL INTERPHALANGEAL JOINT POSSIBLE PROXIMAL INTERPHALANGEAL JOINT ARTHROPLASTY Zenon Huston MD [address] [facility] [address] [place] [address] Referral ID Status Reason Start Date Expiration Date Visits Re quested Visits Authorized [id number] 02/08/2024 1 1 Reason Onset Date Comments Refill Request 02/15/2024 Reason Comments Post-op DOS 02/12/24 Open red uction right middle finger PIP joint with PIP joint silicone arthroplasty . Specialty Diagnoses / Procedures Referred By Avni t Referred To Contact Occupational Therapy Diagnoses Dislocation of proximal interphalangeal joint of unspecified finger, subsequent encounter Procedures VT OFFICE/OUTPATIENT NEW HIGH MDM 60 MINUTES Zenon Huston MD [address] [facility] [address] [place] [address] [employer] [address] [place] [address] Referral ID Status Reason Start Date Expiration Date Visits Requested Visits Authorized [id number] Authorized Eval and Treat 02/09/2024 02/08/2025 99 99 Reason Onset Date Comments Refill Request 02/22/2024 Reason Comments Post-op DOS 02/12/24 Open red uction right middle finger PIP joint with PIP joint silicone arthroplasty Reason Comments Post-op Open reduction right middle finger PIP joint with PIP joint silicone arthroplasty on 02/12/24 Reason Onset Date Comments Refill Request 03/21/2024 Reason Comments Refill Request 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 Reason Comments Hypertension Follow up Reason Comments Post-op DOS 02/12/24 Open red uction right middle finger PIP joint with PIP joint silicone arthroplasty Reason Comments Dizziness Reason Onset Date Comments Refill Request 05/20/2024 Reason Comments Orders Specialty Diagnoses / Procedures Referred By Contac t Referred To Contact [facility] Diagnoses Abnormal mammogram Procedures US BREAST LTD LEFT US BREAST UNI REAL TIME WITH IMAGE LIMITED Jeffy Fields MD [address] [place] [address] [facility] [address] [place] [address] Referral ID Status Reason Start Date Expiration Date V isits Requested Visits Authorized [id number] Closed Auto-Generate d Referral 12/02/2023 12/31/2024 1 1 Reason Comments Established Patient RLS, Dream enactment behavior Reason Comments burniing with urination Burning with uri nation and lower back discomfort x 1 week-slid down 3 steps 4 days ago and also hurt lower back Reason Comments 10/15/2023 COLON ASC Reason Onset Date Comments Refill Request 08/15/2024 Reason Comments Established Patient RLS, RBD, tremors Reason Comments 6 Month Exam Reason Onset Date Comments Other 11/21/2024 Triage- right mi ddle digit Reason Comments Follow-up rt middle finger daniel n and edema Reason Comments Post-op Revision PIP arthrop lasty right middle finger, Extensor tenolysis right middle finger // DOS 01/06/25 Reason Comments Post-op Revision PIP arthrop lasty right middle finger, Extensor tenolysis right middle finger // DOS 01/06/25 Reason Onset Date Comments Refill Request 02/14/2025 Out of Medicatio n Reason Comments Post-op Revision PIP arthrop lasty right middle finger, Extensor tenolysis right middle finger DOS 01/06/25 Reason Comments Follow Up RLS, RBD,Tremors- re ports medications and current schedule working well Reason Comments Orders Nidra Reason Comments [facility] Care Teams (unrecognized sec tion and content) Portuguese Tutor Relationship Specialty Start Date End Date Jeffy Fields MD [address] [place] [address] PCP - General Family Practice 10/29/21 Portuguese Tutor Relationship Specialty Start Date End Date Jeffy Fields MD [address] [place] [address] PCP - General Family Practice 10/29/21 Portuguese Tutor Relationship Specialty Start Date End Date Jeffy Fields MD [address] [place] [address] [place] [address] PCP - General Family Practice 10/29/21 Portuguese Tutor Relationship Specialty Start Date End Date Jeffy Fields MD [address] [place] [address], [place] [address] PCP - General Family Practice 10/29/21 Portuguese Tutor Relationship Specialty Start Date End Date Jeffy Fields MD [address] [place] [address], [place] [address] PCP - General Family Practice 10/29/21 Portuguese Tutor Relationship Specialty Start Date End Date Jeffy Fields MD [address] [place] [address], [place] [address] PCP - General Family Practice 10/29/21 Portuguese Tutor Relationship Specialty Start Date End Date Jeffy Fields MD [address] [place] [address], [place] [address] PCP - General Family Practice 10/29/21 Portuguese Tutor Relationship Specialty Start Date End Date Jeffy Fields MD [address] [place] [address] [place] [address] PCP - General Family Practice 10/29/21 Portuguese Tutor Relationship Specialty Start Date End Date Jeffy Fields MD [address] [place] [address] PCP - General Family Practice 10/29/21 Portuguese Tutor Relationship Specialty Start Date End Date Jeffy Fields MD [address] [place] [address] PCP - General Family Practice 10/29/21 Portuguese Tutor Relationship Specialty Start Date End Date Jeffy Fields MD [address] [place] [address] PCP - General Family Practice 10/29/21 Portuguese Tutor Relationship Specialty Start Date End Date Jeffy Fields MD [address] [place] [address] PCP - General Family Practice 10/29/21 Portuguese Tutor Relationship Specialty Start Date End Date Jeffy Fields MD [address] [place] [address] PCP - General Family Practice 10/29/21 Portuguese Tutor Relationship Specialty Start Date End Date Jeffy Fields MD [address] [place] [address] PCP - General Family Practice 10/29/21 Portuguese Tutor Relationship Specialty Start Date End Date Jeffy Fields MD [address] [place] [address] PCP - General Family Practice 10/29/21 Portuguese Tutor Relationship Specialty Start Date End Date Jeffy Fields MD [address] [place] [address] PCP - General Family Practice 10/29/21 Portuguese Tutor Relationship Specialty Start Date End Date Jeffy Fields MD [address] [place] [address] PCP - General Family Medicine 10/29/21 Portuguese Tutor Relationship Specialty Start Date End Date Jeffy Fields MD [address] [place] [address] PCP - General Family Medicine 10/29/21 Portuguese Tutor Relationship Specialty Start Date End Date Jeffy Fields MD [address] [place] [address] PCP - General Family Medicine 10/29/21 Portuguese Tutor Relationship Specialty Start Date End Date Jeffy Fields MD [address] [place] [address] PCP - General Family Medicine 10/29/21 Portuguese Tutor Relationship Specialty Start Date End Date Jeffy Fields MD [address] [place] [address] PCP - General Family Medicine 10/29/21 Portuguese Tutor Relationship Specialty Start Date End Date Jeffy Fields MD [address] [place] [address] PCP - General Family Medicine 10/29/21 Portuguese Tutor Relationship Specialty Start Date End Date Jeffy Fields MD [address] [place] [address] PCP - General Family Medicine 10/29/21 Portuguese Tutor Relationship Specialty Start Date End Date Jeffy Fields MD [address] [place] [address] PCP - General Family Medicine 10/29/21 Portuguese Tutor Relationship Specialty Start Date End Date Jeffy Fields MD [address] [place] [address] PCP - General Family Medicine 10/29/21 Portuguese Tutor Relationship Specialty Start Date End Date Jeffy Fields MD [address] [place] [address] PCP - General Family Medicine 10/29/21 Portuguese Tutor Relationship Specialty Start Date End Date Jeffy Fields MD [address] [place] [address] PCP - General Family Medicine 10/29/21 Portuguese Tutor Relationship Specialty Start Date End Date Jeffy Fields MD [address] [place] [address] PCP - General Family Medicine 10/29/21 Portuguese Tutor Relationship Specialty Start Date End Date Jeffy Fields MD [address] [place] [address] PCP - General Family Medicine 10/29/21 Portuguese Tutor Relationship Specialty Start Date End Date Jeffy Fields MD [address] [place] [address] PCP - General Family Medicine 10/29/21 Portuguese Tutor Relationship Specialty Start Date End Date Jeffy Fields MD [address] [place] [address] PCP - General Family Medicine 10/29/21 Portuguese Tutor Relationship Specialty Start Date End Date Jeffy Fields MD [address] [place] [address] PCP - General Family Medicine 10/29/21 Team Status: Active Member Role Status Dates Dr. Jeffy Fields MD Family Provider Active Dr. Jeffy Fields MD Primary Care Provider Active Team Status: Inactive Member Role Status Dates Dr. Jeffy Fields MD Primary Care Provider Active Dr. Jen Harper DO Attending Provider, Rylee chahal Active Portuguese Tutor Relationship Specialty Start Date End Date Jeffy Fields MD [address] [place] [address] PCP - General Family Medicine 10/29/21 Portuguese Tutor Relationship Specialty Start Date End Date Jeffy Fields MD [address] [place] [address] PCP - General Family Medicine 10/29/21 Team Status: Inactive Member Role Status Dates Dr. Jeffy Fields MD Primary Care Provider, Referring Provider Active Dr. Pacheco Farrar MD Attending Provider Active Team Status: Active Member Role Status Dates Dr. Jeffy Fields MD Primary Care Provider Active Eneida Rodriguez Attending Provider Active Team Status: Inactive Member Role Status Dates Dr. Jeffy Fields MD Primary Care Provider Active Dr. Cresencio Rollins MD Emergency Provider Active Portuguese Tutor Relationship Specialty Start Date End Date Jeffy Fields MD [address] [place] [address] PCP - General Family Medicine 10/29/21 Portuguese Tutor Relationship Specialty Start Date End Date Jeffy Fields MD [address] [place] [address] PCP - General Family Medicine 10/29/21 Portuguese Tutor Relationship Specialty Start Date End Date Jeffy Fields MD [address] [place], [place] [address] PCP - General Family Medicine 10/29/21 Portuguese Tutor Relationship Specialty Start Date End Date Jeffy Fields MD [address] [place] [address] PCP - General Family Medicine 10/29/21 Portuguese Tutor Relationship Specialty Start Date End Date Jeffy Fields MD [address] [place], [place] [address] PCP - General Family Medicine 10/29/21 Portuguese Tutor Relationship Specialty Start Date End Date Jeffy Fields MD [address] [place], [place] [address] PCP - General Family Medicine 10/29/21 Portuguese Tutor Relationship Specialty Start Date End Date Jeffy Fields MD [address] [place] [address] PCP - General Family Medicine 10/29/21 Portuguese Tutor Relationship Specialty Start Date End Date Jeffy Fields MD [address] [place] [address] PCP - General Family Medicine 10/29/21 Portuguese Tutor Relationship Specialty Start Date End Date Jeffy Fields MD [address] [place] [address] PCP - General Family Medicine 10/29/21 Portuguese Tutor Relationship Specialty Start Date End Date Jeffy Fields MD [address] [place] [address] PCP - General Family Medicine 10/29/21 Portuguese Tutor Relationship Specialty Start Date End Date Jeffy Fields MD [address] [place] [address] PCP - General Family Medicine 10/29/21 Team Status: Inactive Member Role Status Dates Dr. Jeffy Fields MD Primary Care Provider Active Dr. Cresencio Rollins MD Attending Provider, Emergency Provider Active Team Status: Inactive Member Role Status Dates Dr. Jeffy Fields MD Primary Care Provider Active Dr. Riccardo Diggs MD Emergency Provider Active Portuguese Tutor Relationship Specialty Start Date End Date Jeffy Fields MD [address] [place] [address] PCP - General Family Medicine 10/29/21 Portuguese Tutor Relationship Specialty Start Date End Date Jeffy Fields MD [address] [place] [address] PCP - General Family Medicine 10/29/21 Portuguese Tutor Relationship Specialty Start Date End Date Jeffy Fields MD [address] [place] [address] PCP - General Family Medicine 10/29/21 Portuguese Tutor Relationship Specialty Start Date End Date Jeffy Fields MD [address] [place] [address] PCP - General Family Medicine 10/29/21 Portuguese Tutor Relationship Specialty Start Date End Date Jeffy Fields MD [address] [place] [address] PCP - General Family Medicine 10/29/21 Portuguese Tutor Relationship Specialty Start Date End Date Jeffy Fields MD [address] [place] [address] PCP - General Family Medicine 10/29/21 Portuguese Tutor Relationship Specialty Start Date End Date Jeffy Fields MD [address] [place] [address] PCP - General Family Medicine 10/29/21 Portuguese Tutor Relationship Specialty Start Date End Date Jeffy Fields MD [address] [place] [address] PCP - General Family Medicine 10/29/21 Portuguese Tutor Relationship Specialty Start Date End Date Jeffy Fields MD [address] [place] [address] PCP - General Family Medicine 10/29/21 Portuguese Tutor Relationship Specialty Start Date End Date Jeffy Fields MD [address] [place] [address] PCP - General Family Medicine 10/29/21 Portuguese Tutor Relationship Specialty Start Date End Date Jeffy Fields MD [address] [place] [address] PCP - General Family Medicine 10/29/21 Portuguese Tutor Relationship Specialty Start Date End Date Jeffy Fields MD [address] [place] [address] PCP - General Family Medicine 10/29/21 Portuguese Tutor Relationship Specialty Start Date End Date Jeffy Fields MD [address] [place] [address] PCP - General Family Medicine 10/29/21 Portuguese Tutor Relationship Specialty Start Date End Date Jeffy Fields MD [address] [place] [address] PCP - General Family Medicine 10/29/21 Portuguese Tutor Relationship Specialty Start Date End Date Jeffy Fields MD [address] [place] [address] PCP - General Family Medicine 04/07/23 Portuguese Tutor Relationship Specialty Start Date End Date Jeffy Fields MD [facility] [place] [address] PCP - General Family Medicine 04/07/23 Portuguese Tutor Relationship Specialty Start Date End Date Jeffy Fields MD [facility] [place] [address] PCP - General Family Medicine 04/07/23 Portuguese Tutor Relationship Specialty Start Date End Date Jeffy Fields MD [facility] [place] [address] PCP - General Family Medicine 04/07/23 Portuguese Tutor Relationship Specialty Start Date End Date Jeffy Fields MD [address] [facility] [place] [address] PCP - General Family Medicine 04/07/23 Portuguese Tutor Relationship Specialty Start Date End Date Jeffy Fields MD [address] [facility] [place] [address] PCP - General Family Medicine 04/07/23 Portuguese Tutor Relationship Specialty Start Date End Date Jeffy Fields MD [address] [facility] [place] [address] PCP - General Family Medicine 04/07/23 Portuguese Tutor Relationship Specialty Start Date End Date Jeffy Fields MD [address] [facility] [place] [address] PCP - General Family Medicine 04/07/23 Portuguese Tutor Relationship Specialty Start Date End Date Jeffy Fields MD [address] [facility], [place] [address] PCP - General Family Medicine 04/07/23 Portuguese Tutor Relationship Specialty Start Date End Date Jeffy Fields MD [address] [facility], [place] [address] PCP - General Family Medicine 04/07/23 Portuguese Tutor Relationship Specialty Start Date End Date Jeffy Fields MD [address] [place] [address] PCP - General Family Medicine 10/29/21 Portuguese Tutor Relationship Specialty Start Date End Date Jeffy Fields MD [address] [place] [address] PCP - General Family Medicine 10/29/21 Portuguese Tutor Relationship Specialty Start Date End Date Jeffy Fields MD [address] [place] [address] PCP - General Family Medicine 10/29/21 Portuguese Tutor Relationship Specialty Start Date End Date Jeffy Fields MD [address] [place], [place] [address] PCP - General Family Medicine 04/07/23 Portuguese Tutor Relationship Specialty Start Date End Date Jeffy Fields MD [address] [place] [address] PCP - General Family Medicine 10/29/21 Portuguese Tutor Relationship Specialty Start Date End Date Jeffy Fields MD [address] [place], [place] [address] PCP - General Family Medicine 04/07/23 Portuguese Tutor Relationship Specialty Start Date End Date Jeffy Fields MD [address] [place] [address] PCP - General Family Medicine 10/29/21 Portuguese Tutor Relationship Specialty Start Date End Date Jeffy Fields MD [address] [place], [place] [address] PCP - General Family Medicine 06/05/16 08/20/21 Portuguese Tutor Relationship Specialty Start Date End Date Jeffy Fields MD [address] [place], [place] [address] PCP - General Family Medicine 10/29/21 Portuguese Tutor Relationship Specialty Start Date End Date Jeffy Fields MD [address] [place], [place] [address] PCP - General Family Medicine 10/29/21 Portuguese Tutor Relationship Specialty Start Date End Date Jeffy Fields MD [address] [place], [place] [address] PCP - General Family Medicine 10/29/21 Portuguese Tutor Relationship Specialty Start Date End Date Jeffy Fields MD [address] [place] [address] PCP - General Family Medicine 10/29/21 Portuguese Tutor Relationship Specialty Start Date End Date Jeffy Fields MD [address] [facility] [place] [address] PCP - General Family Medicine 10/29/21 Gloria Garibay APRN.CIVIL ENGINEERING PROJECT DESIGNER [address] [facility] [place] [address] [facility] 08/01/24 Jennifer Broussard ADMINISTRATIVE ACCOUNTANT.CIVIL ENGINEERING PROJECT DESIGNER [address] [facility] [place] [address] [facility] 08/01/24 Portuguese Tutor Relationship Specialty Start Date End Date Jeffy Fields MD [address] [facility] [place] [address] PCP - General Family Medicine 10/29/21 Gloria Garibay ADMINISTRATIVE ACCOUNTANT.CIVIL ENGINEERING PROJECT DESIGNER [address] [facility] [place] [address] [facility] 08/01/24 Jennifer Broussard ADMINISTRATIVE ACCOUNTANT.CIVIL ENGINEERING PROJECT DESIGNER [address] [facility] [place] [address] [facility] 08/01/24 Portuguese Tutor Relationship Specialty Start Date End Date Jeffy Fields MD [address] [facility] [place] [address] PCP - General Family Medicine 10/29/21 Gloria Garibay, ADMINISTRATIVE ACCOUNTANT.CIVIL ENGINEERING PROJECT DESIGNER [address] [place] [address] [facility] 08/01/24 Jennifer Broussard ADMINISTRATIVE ACCOUNTANT.CIVIL ENGINEERING PROJECT DESIGNER [address] [place] [address] [facility] 08/01/24 Portuguese Tutor Relationship Specialty Start Date End Date Jeffy Fields MD [address] [place] [address] PCP - General Family Medicine 10/29/21 Gloria Garibay, ADMINISTRATIVE ACCOUNTANT.CIVIL ENGINEERING PROJECT DESIGNER [address] [place] [address] [facility] 08/01/24 Jennifer Broussard ADMINISTRATIVE ACCOUNTANT.CIVIL ENGINEERING PROJECT DESIGNER [address] [place] [address] [facility] 08/01/24 Portuguese Tutor Relationship Specialty Start Date End Date Jeffy Fields MD [address] [place] [address] PCP - General Family Medicine 10/29/21 Gloria Garibay ADMINISTRATIVE ACCOUNTANT.CIVIL ENGINEERING PROJECT DESIGNER [address] [place] [address] [facility] Family Medicine 08/01/24 Jennifer Broussard ADMINISTRATIVE ACCOUNTANT.CIVIL ENGINEERING PROJECT DESIGNER [address] [place] [address] [facility] 08/01/24 Portuguese Tutor Relationship Specialty Start Date End Date Jeffy Fields MD [address] [place], [place] [address]65[address] PCP - General Family Medicine 04/07/23 Portuguese Tutor Relationship Specialty Start Date End Date Jeffy Fields MD [address] [place], [place] [address] PCP - General Family Medicine 10/29/21 Gloria Garibay, ADMINISTRATIVE ACCOUNTANT.CIVIL ENGINEERING PROJECT DESIGNER [address] [place], [place] [address] [facility] 08/01/24 Jennifer Broussard ADMINISTRATIVE ACCOUNTANT.CIVIL ENGINEERING PROJECT DESIGNER [address] [place], [place] [address] [facility] 08/01/24 Portuguese Tutor Relationship Specialty Start Date End Date Jeffy Fields MD [address] [place], [place] [address] PCP - General Family Medicine 04/07/23 Portuguese Tutor Relationship Specialty Start Date End Date Jeffy Fields MD [address] [place], [place] [address] PCP - General Family Medicine 04/07/23 Portuguese Tutor Relationship Specialty Start Date End Date Jeffy Fields MD [address] [place], [place] [address] PCP - General Family Medicine 04/07/23 Portuguese Tutor Relationship Specialty Start Date End Date Jeffy Fields MD [address] [place], [place] [address] PCP - General Family Medicine 04/07/23 Portuguese Tutor Relationship Specialty Start Date End Date Jeffy Fields MD [address] [facility], [place] [address] PCP - General Family Medicine 04/07/23 Portuguese Tutor Relationship Specialty Start Date End Date Jeffy Fields MD [address] [facility], [place] [address] PCP - General Family Medicine 04/07/23 Team Status: Active Member Role/Relationship Status Dates Dr. Jeffy Fields MD Family Provider Active Dr. Jeffy Fields MD Primary Care Provider Active Team Status: Inactive Member Role/Relationship Status Dates Dr. Jeffy Fields MD Primary Care Provider Active Start: February 28, 2025 End: February 28, 2025 Dr. Jeffy Fields MD Referring Provider Active Start: February 28, 2025 End: February 28, 2025 Eneida NEWELL PA Attending Provider Active Start: February 28, 2025 End: February 28, 2025 Team Status: Active Member Role/Relationship Status Dates Dr. Jeffy Fields MD Primary Care Provider Active Team Status: Inactive Member Role/Relationship Status Dates Dr. Jeffy Fields MD Primary Care Provider Active Start: February 28, 2025 End: February 28, 2025 Eneida NEWELL PA Attending Provider Active Start: February 28, 2025 End: February 28, 2025 Eneida NEWELL PA Referring Provider Active Start: February 28, 2025 End: February 28, 2025 Portuguese Tutor Relationship Specialty Start Date End Date Jeffy Fields MD [address] [facility], [place] [address] PCP - General Family Medicine 10/29/21 Gloria Garibay APRN.CIVIL ENGINEERING PROJECT DESIGNER [address] [facility], [place] [address] [facility] 08/01/24 Jennifer Broussard APRN.CIVIL ENGINEERING PROJECT DESIGNER [address] [place] [address] [facility] 08/01/24 Portuguese Tutor Relationship Specialty Start Date End Date Jeffy Fields MD [address] [place] [address] PCP - General Family Medicine 10/29/21 Gloria Garibay APRN.CIVIL ENGINEERING PROJECT DESIGNER [address] [place] [address] [facility] 08/01/24 Jennifer Broussard APRN.CIVIL ENGINEERING PROJECT DESIGNER [address] [place], [place] [address] [facility] Portuguese Tutor Relationship Specialty Start Date End Date Jeffy Fields MD [address] [place], [place] [address] PCP - General Family Medicine 04/07/23 Goals (unrecognized section and content) Goals may be documented in a n alternate section No data available for this section No data available for this section No data available for this sectionGoals may be documented in an alternate sectionGoals may be documented in an alternate sectionGoals may be documented in an alternate sectionGoals may be documented in an alternate sectionGoals may be documented in an alternate sectionGoals may be documented in an alternate section Care Team (unrecognized sect ion and content) Care Team Personnel Name: JEFFY FIELDS MD Member Role: Primary Care Physician Address: Address: [facility] [address] [place] [id number]- Care Team Related Persons Name: CHICA SALGUERO Name: MAGDI ALBERTS Address: Home [address] [place] [address] INFORMATION SOURCE (unrecogn ized section and content) DATE CREATED AUTHOR 03/14/2022 [facility] [employer] ([place]) DATE CREATED AUTHOR AUTHOR'S ORGANIZ ATION 02/21/2025 [facility] DATE CREATED AUTHOR AUTHOR'S ORGANIZ ATION 03/19/2025 [facility] DATE CREATED AUTHOR AUTHOR'S ORGANIZ ATION 03/23/2025 [facility] Inactive Administered Medications - up to 3 most recent administrations Administered Medications (un recognized section and content) Medication Order MAR Action Action Date Dose Rate Site fentaNYL 50 mcg/mL 25-100 mcg injection (SUBLIMAZE) 25-100 mcg, INTRAVENOUS, DIRECTED, Starting on Samreen 10/15/23 at 1030, Until Samreen 10/15/23 at 1429, DOSING DIRECTED BY PHYSICIAN FOR PROCEDURAL SEDATION ONLY, Intraprocedure Given 10/15/2023 10:25 AM EST 50 mcg lactated ringers iv infusion 30 mL/hr, INTRAVENOUS, CONTINUOUS, Starting on Samreen 10/15/23 at 1030, Until Samreen 10/15/23 at 1056, Preprocedure New Bag/Syringe/Ramiro le 10/15/2023 9:55 AM EST 30 mL/hr 30 mL/hr Arm, Right midazolam (PF) 1-5 mg injection (VERSED) 1-5 mg, INTRAVENOUS, DIRECTED, Starting on Samreen 10/15/23 at 1030, Until Samreen 10/15/23 at 1429, DOSING DIRECTED BY PHYSICIAN FOR PROCEDURAL SEDATION ONLY, Intraprocedure Given 10/15/2023 10:36 AM EST 1 mg Given 10/15/2023 10:25 AM EST 2 mg Scheduled Active and Recently Administ ered Medications (unrecognized section and content) Medication Order 02/10/2024 02/11/2024 02/12/2024 acetaminophen (Tylenol) tablet 1,000 mg (COMPLETED) 1,000 mg, Oral, Once, On Thu02/12/24 at 1230, For 1 dose, Preprocedure, Administer 60 minutes prior to surgery. 1303 (Given - Provid er: Marcel Wing RN) ceFAZolin (Ancef) 2,000 mg in sodium chloride 0.9 % 100 mL IVPB (COMPLETED) 2,000 mg, IntraVENous, at 200 mL/hr, Administer over 30 Minutes, Coupon Collection Clerk to O.R., On Thu02/12/24 at 1230, For 1 dose, Preprocedure, Administer within 1 hour prior to incision. Recommend to repeat in 3-4 hours after initial dose if still intra-op. Mini-Bag Plus bag, Suspected Indication (Select all that apply): Surgical Prophylaxis 1440 (New Bag - Prov ider: YOLY Little CRNA)1545 (Anesthesia Volume Adjustment - Provider: YOLY Little CRNA) famotidine (Pepcid) tablet 20 mg (COMPLETED)(Linked Group 1) 20 mg, Oral, Once, On Thu02/12/24 at 1230, For 1 dose, Preprocedure, IV or Oral - Use PO option as first line. If unable to tolerate PO, then okay to use IV. 1303 (Given - Provid er: Marcel Wing RN) sodium chloride 0.9% (NS) flush 10 mL 10 mL, IntraVENous, Every 12 hours scheduled (2 times per day), First dose on Thu02/12/24 at 2100, Preprocedure sodium chloride 0.9% (NS) flush 5-40 mL 5-40 mL, IntraVENous, Every 12 hours, First dose on Thu02/12/24 at 1230, Preprocedure, For Line Patency: Peripheral IV = 5 mL; Midline or Central Line = 10 mL/lumen. If following IV push medication, administer flush at same rate as the IV push. Flush volume is determined by type of infusion therapy being given. For non-viscous solutions use: Peripheral IV = 5 mL Midline or Central Line = 10 mL/lumen For viscous solutions (i.e. blood components, parenteral nutrition, contrast media, or after obtaining blood sample) use: Peripheral IV = 10 mL Midline or Central Line = 20 mL/lumen 1230 (Canceled Entry - Provider: Automatic Discharge Provider - Comment: Automatically canceled at discontinue of medication order) Continuous Medication Order 02/10/2024 02/11/2024 02/12/2024 lactated Ringer's (LR) infusion 50 mL/hr, IntraVENous, Continuous, Starting on Thu02/12/24 at 1230, Preprocedure, Upon admission to sameday - please start iv if patient does not have iv access. Use 500ml NS for patients on dialysis. 1304 (New Bag - Prov ider: Marcel Wing RN)1424 (Continued by Anesthesia - Provider: Eneida Potenzini, ADMINISTRATIVE ACCOUNTANT - [facility] PLATE CUTTER)1521 (Stopped - Provider: Eneida Goodwin, YOLY - ZINC PLATE CUTTER) PRN Medication Order 02/10/2024 02/11/2024 02/12/2024 diphenhydrAMINE (BENADryl) injection 12.5 mg 12.5 mg, IntraVENous, Once PRN, itching, Starting on Thu02/12/24 at 1546, For 1 dose, Recovery (only) hydrALAZINE (Apresoline) injection 5 mg(Linked Group 2) 5 mg, IntraVENous, Every 15 min PRN, high blood pressure, for SBP greater than 160 mmHg for 2 consecutive measurements taken from different sites, Starting on Thu02/12/24 at 1546, For 2 doses, Recovery (only), PRN for SBP > 160 for 2 consecutive measurements, and if one of the following conditions is met: 1) If IV labetolol is ineffective. 2) If HR is under 60. 3) If patient has heart block, COPD or asthma. If both labetalol and hydralazine ineffective, notify anesthesia provider. HYDROmorphone (Dilaudid) injection 0.25 mg 0.25 mg, IntraVENous, Every 5 min PRN, moderate pain (4-6), Starting on Thu02/12/24 at 1546, For 4 doses, Recovery (only), For Phase I. If Phase II oral narcotics have been administered in the last 60 minutes, do not administer IV narcotics unless specifically approved by provider. HYDROmorphone (Dilaudid) injection 0.5 mg 0.5 mg, IntraVENous, Every 5 min PRN, severe pain (7-10), Starting on Thu02/12/24 at 1546, For 4 doses, Recovery (only), For Phase I. If Phase II oral narcotics have been administered in the last 60 minutes, do not administer IV narcotics unless specifically approved by provider. labetalol (Normodyne,Trandate) injection 5 mg(Linked Group 2) 5 mg, IntraVENous, Every 10 min PRN, high blood pressure, for SBP greater than 160 mmHg for 2 consecutive measurements taken from different sites., Starting on Thu02/12/24 at 1546, For 2 doses, Recovery (only), PRN for SBP >160 for 2 consecutive measurements, if HR is 60 or greater. If beta colette is contraindicated (HR less than 60, heart block, COPD or asthma) use hydralazine IV order. lidocaine-EPINEPHrine (Xylocaine W/EPI) 1 %-1:464966 injection (CANCELED) As needed, Starting on Thu02/12/24 at 1513, Intraprocedure 1513 (Given - Provid er: Zenon Huston MD) LORazepam (Ativan) injection 0.5 mg 0.5 mg, IntraVENous, Once PRN, for anxiety or muscle spasm., Starting on Thu02/12/24 at 1546, For 1 dose, Recovery (only), For IV doses dilute dose with 1ml NS. ondansetron (Zofran) injection 4 mg 4 mg, IntraVENous, Once PRN, nausea, Starting on Thu02/12/24 at 1546, For 1 dose, Recovery (only), Initial antiemetic therapy. oxyCODONE (Roxicodone) immediate release tablet 10 mg(Linked Group 3) 10 mg, Oral, PRN, severe pain (7-10), Starting on Thu02/12/24 at 1546, For 1 dose, Recovery (only), PHASE II oxyCODONE (Roxicodone) immediate release tablet 5 mg(Linked Group 3) 5 mg, Oral, PRN, moderate pain (4-6), Starting on Thu02/12/24 at 1546, For 1 dose, Recovery (only), PHASE II sodium chloride 0.9 % bolus 500 mL 500 mL, IntraVENous, at 1,000 mL/hr, Administer over 0.5 Hours, PRN, Anti-nausea, Starting on Thu02/12/24 at 1546, Recovery (only), Indications: Anti-nausea sodium chloride 0.9 % infusion 5-250 mL/hr, IntraVENous, PRN, if patient receiving piggyback infusions and maintenance fluids are not ordered OR KVO fluids to protect IV site / prevent frequent line interruptions / long duration, Starting on Thu02/12/24 at 1229, Preprocedure, For piggyback infusion, administer at same rate as piggyback for a total of 25 mL. Enter 25 mL into dose field and piggyback rate into rate field of order. If piggyback is infusing at a rate less than 100 mL/hr, enter 25 mL into dose field and 100 mL/hr into rate field of order. For KVO fluids, enter rate of 20 mL/hr or less into rate field of order. sodium chloride 0.9 % infusion 5-250 mL/hr, IntraVENous, PRN, if patient receiving piggyback infusions and maintenance fluids are not ordered OR KVO fluids to protect IV site / prevent frequent line interruptions/ long duration, Starting on Thu02/12/24 at 1229, Preprocedure, For piggyback infusion, administer at same rate as piggyback for a total of 25 mL. Enter 25 mL into dose field and piggyback rate into rate field of order. If piggyback is infusing at a rate less than 100 mL/hr, enter 25 mL into dose field and 100 mL/hr into rate field of order. For KVO fluids, enter rate of 20 mL/hr or less into rate field of order. sodium chloride 0.9 % irrigation solution (CANCELED) As needed, Starting on Thu02/12/24 at 1449, Intraprocedure 1449 (Given - Provid er: Zenon Huston MD) sodium chloride 0.9% (NS) flush 10 mL 10 mL, IntraVENous, PRN, line care, Starting on Thu02/12/24 at 1229, Preprocedure, After every IV line use sodium chloride 0.9% (NS) flush 5-40 mL 5-40 mL, IntraVENous, PRN, line care, After every IV line use, Starting on Thu02/12/24 at 1229, Preprocedure, For Line Patency: Peripheral IV = 5 mL; Midline or Central Line = 10 mL/lumen. If following IV push medication, administer flush at same rate as the IV push. Flush volume is determined by type of infusion therapy being given. For non-viscous solutions use: Peripheral IV = 5 mL Midline or Central Line = 10 mL/lumen For viscous solutions (i.e. blood components, parenteral nutrition, contrast media, or after obtaining blood sample) use: Peripheral IV = 10 mL Midline or Central Line = 20 mL/lumen Linked Groups Order Group 1: famotidine (Pepcid) tablet 20 mg (COMPLETED)Jump to med 20 mg, Oral, Once, On Thu02/12/24 at 1230, For 1 dose, Preprocedure, IV or Oral - Use PO option as first line. If unable to tolerate PO, then okay to use IV. Or famotidine (Pepcid) 20 mg in sodium chloride (PF) 0.9 % 10 mL injection (COMPLETED) 20 mg, IntraVENous, Administer over 2 Minutes, Once, On Thu02/12/24 at 1230, For 1 dose, Preprocedure, IV or Oral Group 2: labetalol (Normodyne,Trandate) injection 5 mgJump to med 5 mg, IntraVENous, Every 10 min PRN, high blood pressure, for SBP greater than 160 mmHg for 2 consecutive measurements taken from different sites., Starting on Thu02/12/24 at 1546, For 2 doses, Recovery (only), PRN for SBP >160 for 2 consecutive measurements, if HR is 60 or greater. If beta colette is contraindicated (HR less than 60, heart block, COPD or asthma) use hydralazine IV order. Or hydrALAZINE (Apresoline) injection 5 mgJump to med 5 mg, IntraVENous, Every 15 min PRN, high blood pressure, for SBP greater than 160 mmHg for 2 consecutive measurements taken from different sites, Starting on Thu02/12/24 at 1546, For 2 doses, Recovery (only), PRN for SBP > 160 for 2 consecutive measurements, and if one of the following conditions is met: 1) If IV labetolol is ineffective. 2) If HR is under 60. 3) If patient has heart block, COPD or asthma. If both labetalol and hydralazine ineffective, notify anesthesia provider. Group 3: oxyCODONE (Roxicodone) immediate release tablet 5 mgJump to med 5 mg, Oral, PRN, moderate pain (4-6), Starting on Thu02/12/24 at 1546, For 1 dose, Recovery (only), PHASE II Or oxyCODONE (Roxicodone) immediate release tablet 10 mgJump to med 10 mg, Oral, PRN, severe pain (7-10), Starting on Thu02/12/24 at 1546, For 1 dose, Recovery (only), PHASE II Scheduled Medication Order 01/04/2025 01/05/2025 01/06/2025 acetaminophen (Tylenol) tablet 1,000 mg (COMPLETED) 1,000 mg, Oral, Once, On Thu01/06/25 at 0745, For 1 dose, Preprocedure, Administer 60 minutes prior to surgery. 08 (Given - Provid er: Varun Day RN) ceFAZolin (Ancef) 2,000 mg in sodium chloride 0.9 % 100 mL IVPB (COMPLETED) 2,000 mg, IntraVENous, at 200 mL/hr, Administer over 30 Minutes, Coupon Collection Clerk to O.R., On Thu01/06/25 at 0745, For 1 dose, Preprocedure, Administer within 1 hour prior to incision. Recommend to repeat in 3-4 hours after initial dose if still intra-op. Mini-Bag Plus bag, Suspected Indication (Select all that apply): Surgical Prophylaxis 921 (New Bag - Prov ider: Brandon Bose, ADMINISTRATIVE ACCOUNTANT - ZINC PLATE CUTTER) famotidine (Pepcid) tablet 20 mg (COMPLETED)(Linked Group 1) 20 mg, Oral, Once, On Thu01/06/25 at 0745, For 1 dose, Preprocedure, IV or Oral - Use PO option as first line. If unable to tolerate PO, then okay to use IV. 826 (Given - Provid er: Varun Day RN) sodium chloride 0.9% (NS) flush 10 mL 10 mL, IntraVENous, Every 12 hours scheduled (2 times per day), First dose on Thu01/06/25 at 0900, Preprocedure 0900 (Canceled Entry - Provider: Automatic Discharge Provider - Comment: Automatically canceled at discontinue of medication order) sodium chloride 0.9% (NS) flush 5-40 mL 5-40 mL, IntraVENous, Every 12 hours, First dose on Thu01/06/25 at 0745, Preprocedure, For Line Patency: Peripheral IV = 5 mL; Midline or Central Line = 10 mL/lumen. If following IV push medication, administer flush at same rate as the IV push. Flush volume is determined by type of infusion therapy being given. For non-viscous solutions use: Peripheral IV = 5 mL Midline or Central Line = 10 mL/lumen For viscous solutions (i.e. blood components, parenteral nutrition, contrast media, or after obtaining blood sample) use: Peripheral IV = 10 mL Midline or Central Line = 20 mL/lumen 0745 (Canceled Entry - Provider: Automatic Discharge Provider - Comment: Automatically canceled at discontinue of medication order) Continuous Medication Order 01/04/2025 01/05/2025 01/06/2025 lactated Ringer's (LR) infusion 50 mL/hr, IntraVENous, Continuous, Starting on Thu01/06/25 at 0745, Preprocedure, Upon admission to sameday - please start iv if patient does not have iv access. Use 500ml NS for patients on dialysis. 0828 (New Bag - Prov ider: Varun Day RN)0919 (Continued by Anesthesia - Provider: Brandon Bose APRN - ELVIS)1034 (Anesthesia Volume Adjustment - Provider: YOLY Alonso CRNA) PRN Medication Order 01/04/2025 01/05/2025 01/06/2025 diphenhydrAMINE (BENADryl) injection 12.5 mg 12.5 mg, IntraVENous, Once PRN, itching, Starting on Thu01/06/25 at 1031, For 1 dose, Recovery (only) hydrALAZINE (Apresoline) injection 5 mg(Linked Group 2) 5 mg, IntraVENous, Every 15 min PRN, high blood pressure, for SBP greater than 160 mmHg for 2 consecutive measurements taken from different sites, Starting on Thu01/06/25 at 1031, For 2 doses, Recovery (only), PRN for SBP > 160 for 2 consecutive measurements, and if one of the following conditions is met: 1) If IV labetolol is ineffective. 2) If HR is under 60. 3) If patient has heart block, COPD or asthma. If both labetalol and hydralazine ineffective, notify anesthesia provider. HYDROmorphone (Dilaudid) injection 0.25 mg 0.25 mg, IntraVENous, Every 5 min PRN, moderate pain (4-6), Starting on Thu01/06/25 at 1031, For 4 doses, Recovery (only), For Phase I. If Phase II oral narcotics have been administered in the last 60 minutes, do not administer IV narcotics unless specifically approved by provider. HYDROmorphone (Dilaudid) injection 0.5 mg 0.5 mg, IntraVENous, Every 5 min PRN, severe pain (7-10), Starting on Thu01/06/25 at 1031, For 4 doses, Recovery (only), For Phase I. If Phase II oral narcotics have been administered in the last 60 minutes, do not administer IV narcotics unless specifically approved by provider. labetalol (Normodyne,Trandate) injection 5 mg(Linked Group 2) 5 mg, IntraVENous, Every 10 min PRN, high blood pressure, for SBP greater than 160 mmHg for 2 consecutive measurements taken from different sites., Starting on Thu01/06/25 at 1031, For 2 doses, Recovery (only), PRN for SBP >160 for 2 consecutive measurements, if HR is 60 or greater. If beta colette is contraindicated (HR less than 60, heart block, COPD or asthma) use hydralazine IV order. lidocaine-EPINEPHrine (Xylocaine W/EPI) 1 %-1:228946 injection (CANCELED) As needed, Starting on Thu01/06/25 at 1010, Intraprocedure 1010 (Given - Provid er: Zenon Huston MD - Comment: injected at surgical site) LORazepam (Ativan) injection 0.5 mg 0.5 mg, IntraVENous, Once PRN, for anxiety or muscle spasm., Starting on Thu01/06/25 at 1031, For 1 dose, Recovery (only), For IV doses dilute dose with 1ml NS. ondansetron (Zofran) injection 4 mg 4 mg, IntraVENous, Once PRN, nausea, Starting on Thu01/06/25 at 1031, For 1 dose, Recovery (only), Initial antiemetic therapy. oxyCODONE (Roxicodone) immediate release tablet 10 mg(Linked Group 3) 10 mg, Oral, Every 4 hours PRN, severe pain (7-10), Starting on Thu01/06/25 at 1031, For 1 dose, Recovery (only), PHASE II oxyCODONE (Roxicodone) immediate release tablet 5 mg(Linked Group 3) 5 mg, Oral, Every 4 hours PRN, moderate pain (4-6), Starting on Thu01/06/25 at 1031, For 1 dose, Recovery (only), PHASE II povidone-iodine (Betadine) 10 % external solution (CANCELED) As needed, Starting on Thu01/06/25 at 0958, Intraprocedure 0958 (Given - Provid er: Zenon Huston MD - Comment: used at surgical site to soak sponge) sodium chloride 0.9 % bolus 500 mL 500 mL, IntraVENous, at 1,000 mL/hr, Administer over 0.5 Hours, PRN, Anti-nausea, Starting on Thu01/06/25 at 1031, Recovery (only), Indications: Anti-nausea sodium chloride 0.9 % infusion 5-250 mL/hr, IntraVENous, PRN, if patient receiving piggyback infusions and maintenance fluids are not ordered OR KVO fluids to protect IV site / prevent frequent line interruptions / long duration, Starting on Thu01/06/25 at 0742, Preprocedure, For piggyback infusion, administer at same rate as piggyback for a total of 25 mL. Enter 25 mL into dose field and piggyback rate into rate field of order. If piggyback is infusing at a rate less than 100 mL/hr, enter 25 mL into dose field and 100 mL/hr into rate field of order. For KVO fluids, enter rate of 20 mL/hr or less into rate field of order. sodium chloride 0.9 % infusion 5-250 mL/hr, IntraVENous, PRN, if patient receiving piggyback infusions and maintenance fluids are not ordered OR KVO fluids to protect IV site / prevent frequent line interruptions/ long duration, Starting on Thu01/06/25 at 0742, Preprocedure, For piggyback infusion, administer at same rate as piggyback for a total of 25 mL. Enter 25 mL into dose field and piggyback rate into rate field of order. If piggyback is infusing at a rate less than 100 mL/hr, enter 25 mL into dose field and 100 mL/hr into rate field of order. For KVO fluids, enter rate of 20 mL/hr or less into rate field of order. sodium chloride 0.9 % irrigation solution (CANCELED) As needed, Starting on Thu01/06/25 at 0938, Intraprocedure 0938 (Given - Provid er: Zenon Huston MD) sodium chloride 0.9% (NS) flush 10 mL 10 mL, IntraVENous, PRN, line care, Starting on Thu01/06/25 at 0742, Preprocedure, After every IV line use sodium chloride 0.9% (NS) flush 5-40 mL 5-40 mL, IntraVENous, PRN, line care, After every IV line use, Starting on Thu01/06/25 at 0742, Preprocedure, For Line Patency: Peripheral IV = 5 mL; Midline or Central Line = 10 mL/lumen. If following IV push medication, administer flush at same rate as the IV push. Flush volume is determined by type of infusion therapy being given. For non-viscous solutions use: Peripheral IV = 5 mL Midline or Central Line = 10 mL/lumen For viscous solutions (i.e. blood components, parenteral nutrition, contrast media, or after obtaining blood sample) use: Peripheral IV = 10 mL Midline or Central Line = 20 mL/lumen Xeroform Petrolat Gauze 1x8 pad (CANCELED) As needed, Starting on Thu01/06/25 at 1003, Intraprocedure 1003 (Given - Provid er: Zenon Huston MD - Comment: applied at surgical site) Linked Groups Order Group 1: famotidine (Pepcid) tablet 20 mg (COMPLETED)Jump to med 20 mg, Oral, Once, On Thu01/06/25 at 0745, For 1 dose, Preprocedure, IV or Oral - Use PO option as first line. If unable to tolerate PO, then okay to use IV. Or famotidine (Pepcid) 20 mg in sodium chloride (PF) 0.9 % 10 mL injection (COMPLETED) 20 mg, IntraVENous, Administer over 2 Minutes, Once, On Thu01/06/25 at 0745, For 1 dose, Preprocedure, IV or Oral Group 2: labetalol (Normodyne,Trandate) injection 5 mgJump to med 5 mg, IntraVENous, Every 10 min PRN, high blood pressure, for SBP greater than 160 mmHg for 2 consecutive measurements taken from different sites., Starting on Thu01/06/25 at 1031, For 2 doses, Recovery (only), PRN for SBP >160 for 2 consecutive measurements, if HR is 60 or greater. If beta colette is contraindicated (HR less than 60, heart block, COPD or asthma) use hydralazine IV order. Or hydrALAZINE (Apresoline) injection 5 mgJump to med 5 mg, IntraVENous, Every 15 min PRN, high blood pressure, for SBP greater than 160 mmHg for 2 consecutive measurements taken from different sites, Starting on Thu01/06/25 at 1031, For 2 doses, Recovery (only), PRN for SBP > 160 for 2 consecutive measurements, and if one of the following conditions is met: 1) If IV labetolol is ineffective. 2) If HR is under 60. 3) If patient has heart block, COPD or asthma. If both labetalol and hydralazine ineffective, notify anesthesia provider. Group 3: oxyCODONE (Roxicodone) immediate release tablet 5 mgJump to med 5 mg, Oral, Every 4 hours PRN, moderate pain (4-6), Starting on Thu01/06/25 at 1031, For 1 dose, Recovery (only), PHASE II Or oxyCODONE (Roxicodone) immediate release tablet 10 mgJump to med 10 mg, Oral, Every 4 hours PRN, severe pain (7-10), Starting on Thu01/06/25 at 1031, For 1 dose, Recovery (only), PHASE II FOR RECORDS PERTAINING TO PATIENTS WHO ARE OR HAVE BEEN ENROLLED IN A CHEMICAL DEPENDENCY/SUBSTANCEABUSE PROGRAM, SOME INFORMATION MAY BE OMITTED. This clinical summary was aggregated from multiple sources. Caution should be exercised in using it in the provision of clinical care. This summary normalizes information from multiple sources, and as a consequence, information in this document may materially change the coding, format and clinical context of patient data. In addition, data may be omitted in some cases. CLINICAL DECISIONS SHOULD BE BASED ON THE PRIMARY CLINICAL RECORDS. [facility]. provides no warranty or guarantee of the accuracy or completeness of information in this document.
--- NOTE | 2025-03-24 17:39 | STRESSREP_ITS ---
Stress Test Report Exercise myocardial perfusion stress test. 89-year-old lady with a history of chest pain Stress protocol: Resting EKG demonstrates normal sinus rhythm with a rate of 58 bpm resting blood pressure is 158/64 mmHg. The patient exercised according to the regular Guy protocol for a total duration of 6-1/2 minutes attaining a maximum heart rate of 130 bpm which was 97% of maximum predicted heart rate; the maximum workload was 8.5 metabolic equivalents. At rest there were no ST or T wave changes noted to suggest ischemia and at peak exercise upsloping and nonspecific ST changes only were noted which did not meet the criteria for ischemia. No clinical angina was noted the test was terminated due to the target heart rate being achieved/ fatigue. The peak blood pressure was 198/80 mmHg. Rate-pressure product was 18,500. Myocardial perfusion protocol. 11.3 mCi of technetium 99m sestamibi was injected at rest. The patient exercised according to regular Guy protocol for total duration of 6-1/2-minute and at peak exercise 33.5 mCi of technetium 99m sestamibi was injected stress images were obtained stress and rest images were reconstructed in comparing the short axis vertical long and horizontal long axis. Gated images were also obtained. Perfusion SPECT analysis: Review of the stress images demonstrate normal uptake of tracer noted in all areas of the myocardium. The resting images similarly demonstrate normal uptake of tracer noted in all areas of the myocardium. No areas of reversibility are noted to suggest ischemia no previous infarct was noted. Gated SPECT analysis: The gated ejection fraction is 84%. Conclusion: Normal exercise myocardial perfusion stress test at a moderate workload Preserved ejection fraction.
== END | disposition home or self-care (01) ==
LOC: CVS 06:41
PROVIDERS: PCP Family Medicine; Referring Provider Physician Assistant Medical; Visit Provider Physician Assistant Medical
DX: R07.9 Chest pain, unspecified (principal); I10 Essential (primary) hypertension
CPT/HCPCS: 78452; 93017; A9500; A4216

== ENCOUNTER → 2025-05-24 | Outpatient (CLI) | payer MEDICARE, BC, SELFPAY ==
[2025-05-24 10:59] LABS: Albumin, Serum 4.1 g/dL (3.4-4.8); Anion Gap 10 (5-15); BUN 25 mg/dL (4-19); BUN/Creat Ratio 22.0 RATIO (10-20); Calcium,Total 9.6 mg/dL (7.6-11.0); Carbon Dioxide 25.2 mmol/L (21.0-32.0); Chloride 101 mmol/L (98-108); Glucose 113 mg/dL (70-99); Potassium 4.5 mmol/L (3.3-5.1)
== END | disposition home or self-care (01) ==
LOC: LAB 09:32
PROVIDERS: PCP Family Medicine; Referring Provider Internal Medicine Nephrology; Visit Provider Internal Medicine Nephrology
DX: N39.0 Urinary tract infection, site not specified (principal)
CPT/HCPCS: 36415; 80069